=== PATIENT | female | born 1945 | race Caucasian/White ===

== ENCOUNTER 2018-05-21 09:04 | Inpatient (IN) | payer MEDICARE, SELFPAY ==
[2018-05-15 11:27] VITALS: BMI 35.2
[2018-05-21] VITALS (13 sets, daily range): BP systolic 113–173; BP diastolic 62–76; PULSE 60–85; RESP 12–18; TEMP 36.4–36.6; O2SAT 91–98; BMI 34.7; BMI 35.6
--- NOTE | 2018-05-21 09:32 | RAD_ITS ---
STUDY: X-RAY CHEST REASON FOR EXAM: Female, 73 years old. Chest pain/discomfort. Increasing shortness of breath. TECHNIQUE: Single AP portable view of the chest. COMPARISON: None. FINDINGS: Mild elevation of the right hemidiaphragm. Scattered calcified granulomas. No acute abnormality is seen. There is no demonstrated pleural abnormality. Normal size heart. Normal mediastinum and cara. Normal visualized pulmonary arteries. Normal visualized aortic arch and descending thoracic aorta. Normal visualized thoracic spine. Normal visualized ribs, clavicles, and shoulders. There is no demonstrated abnormality of the visualized soft tissue structures of the upper abdomen. RAD/Chest 1 View (Portable) IMPRESSION: Normal x-ray examination of the chest. Electronically Signed: Parish Diaz, at 9:57 EST , Service support ,
--- NOTE | 2018-05-21 09:32 | EKG12_ITS ---
Test Reason : CP Blood Pressure : / mmHG Vent. Rate : 068 BPM Atrial Rate : 068 BPM P-R Int : 204 ms QRS Dur : 098 ms QT Int : 392 ms P-R-T Axes : 042 033 035 degrees QTc Int : 416 ms Normal sinus rhythm Normal ECG Confirmed by INDIRA WEINER MD ([id number]), marketing editor LIZ COOK ([id number]) on 05/23/2018 3:50:41 PM Referred By: IRAIS
[2018-05-21] MEDS: Aspirin 81 MG TAB.CHEW 324 MG PO (09:45)
[2018-05-21 09:57] LABS: Absolute Lymphocyte Count 2.24 X10^3/ul (0.83-4.51); Basophil# 0.06 X10^3/uL; Basophil% 0.6 % (0-1); Eosinophil# 0.17 X10^3/uL; Eosinophils% 1.8 % (0-5); Hematocrit 45.5 % (37-47); Hemoglobin 14.5 g/dl (12.0-15.0); Lymphocyte # 2.24 X10^3/ul (4.0); Lymphocyte % 23.5 % (19-41); Mean Corp Hgb Conc 31.9 g/gl (32-36); Mean Corpuscular Hgb 27.3 pg (27.0-32.0); Mean Corpuscular Volume 85.5 fL (81-99); Mean Platelet Vol. 9.9 fl (6.2-12.0); Monocyte% 10.5 % (0-10); Neutrophil # 6.02 X10^3/uL (2.7-7.7); Neutrophil % 63.2 % (47-70); POSITIVE COUNT NO; POSITIVE DIFFERENTIAL NO; POSITIVE MORPHOLOGY NO; Platelet Count 221 K/mm3 (150-450); RBC Distribution Width CV 13.3 % (11.6-14.6); RBC Distribution Width SD 41.6 fl (35.1-43.9); Red Blood Count 5.32 M/mm3 (4.2-5.4); White Blood Count 9.5 K/mm3 (4.4-11.0)
--- NOTE | 2018-05-21 10:01 | ED.DCSUM_ITS ---
- ER Visit Summary Date of Service: 05/21/18 Chief Complaint: Chest pain History of Present Illness: The patient is a 73 F presenting with chest pain. This has been intermittent for the last week. She states it is a dull midsternal ache. She states with exertion the pain worsens and radiates to her left shoulder. She was seen by her primary care physician today and sent to the ED for further evaluation. She has a history of hypertension. She is not a smoker. Denies PE/DVT risk factors. Physical Examination: Vitals are stable. Patient is afebrile. Alert no acute distress. HEENT exam is unremarkable. Neck is supple. Lungs are clear and equal bilaterally. Heart is regular rate and rhythm. Abdomen is soft nontender nondistended. Extremities are unremarkable. Skin is warm and dry. No focal neurologic deficit. Remainder of exam is unremarkable. Emergency Department Course and Treatment: EKG is sinus rate of 68 with no acute ischemic changes. Patient was given aspirin on arrival. Chest x-ray shows no acute process. CBC, chemistries unremarkable other than glucose 143. Troponin is negative. On reevaluation, patient is resting comfortably. Will discuss with the hospitalist for observation. Disposition: Observation Impression: Chest pain This note was generated with [employer] dictation software. It may contain incorrect words, spelling, and punctuation that were not noted in review of the chart prior to signing ED Disposition - Plan for ED Patient: Referrals: Dilan Valle MD [Primary Care Provider] -
[2018-05-21 10:13] LABS: Anion Gap 11 (5-15); BUN 13 mg/dL (7-18); BUN/Creat Ratio 17.9 RATIO (10-20); Chloride 105 mmol/L (98-107); Creatinine, Serum 0.73 mg/dL (0.55-1.02); EST Glomerular Filtration Rate 84 mL/min (>60); Est Glom Filt Rate - Afr Amer 101 mL/min (>60); Estimated Creatinine Clearance 52.05 ml/min; Glucose 143 mg/dL (74-106); Sodium Level 143 mmol/L (136-145)
--- NOTE | 2018-05-21 11:06 | HP.PCM_ITS ---
History of Present Illness Date of Admission: 05/21/18 Chief Complaint: chest pain The patient is a 73 year old F with past medical history as listed. He was admitted with a complaint of chest pain. Chest pain started last week when she states she walked about a block and started having constricting bandlike chest pain which was worsened by exertion and relieved by rest. She had associated shortness of breath which was also relieved by rest. Patient states pain persisted throughout the weekend associated up with to see her PCP today. PCP asked that she come into the ED for further evaluation. She denied any assisted lightheadedness or dizziness, palpitations or pain radiating to her left arm or jaw. She does admit to having had reflux in the past and states about a week ago she also felt like the reflux had worsened. Review of systems otherwise negative. She has had chest pain like this recently but states about 15 years ago that he had similar chest pain which was more retrosternal and for that she had a stress test done which was negative. States she also had a cardiac cath up in [facility] for this problem and the findings were inconclusive for possible spasm in the circumflex artery versus esophageal spasm. In the ED, vitals were within normal limits. Initial troponin was negative and EKG showed no acute ST changes. She is been admitted to be managed for chest pain to rule out ACS. [] Past Medical History Past Medical History (Chronic Problems): Chronic Problems (Last Reviewed 05/15/18 @ 11:23 by Shireen Castillo) Facet arthropathy, lumbar (Chronic) Medical History: Medical History (Last Reviewed 05/15/18 @ 11:23 by Shireen Castillo) Facet arthropathy, lumbar (Chronic) M47.816 Bilateral headaches R51 Environmental allergies Z91.09 Hyperthyroidism E05.90 Hypertension I10 Allergies bee venom protein (honey bee) Allergy (Verified 05/21/18 09:47) Anaphylaxis Home Medications: Ambulatory Orders Medication Instructions Recorded atenolol 50 mg tablet 100 mg PO DAILY 12/24/17 gabapentin 300 mg capsule 300 mg PO DAILY 12/24/17 levothyroxine 137 mcg tablet 137 mcg PO DAILY 12/24/17 Surgical History: Surgical History (Last Reviewed 05/15/18 @ 11:23 by Shireen Castillo) History of abdominal surgery Z98.890 History of partial thyroidectomy Z98.890 Surgical History: cholecystectomy, - - hysterectomy Psychiatric History: No pertinent psych hx Lives: Spouse/ Significant Other Smoking Status: Never smoker Alcohol: Occasional Drugs: None - *Family History Paternal Family History: Family History (Last Reviewed 05/15/18 @ 11:23 by Shireen Castillo) Other Heart disease Hypertension History Items: Heart Disease, Hypertension Sibling Family History: Family History (Last Reviewed 05/15/18 @ 11:23 by Shireen Castillo) Other Heart disease Hypertension History Items: Hypertension - brother had 2 heart attacks Review of Systems Constitutional: Denies: Chills, Fever, Night Sweats, Malaise, Weakness, Weight Change, Fatigue Eyes: Denies: Blurred vision HEENT: Denies: Head Aches, Sinus Congestion, Sinus Drainage Cardiovascular: Reports: Chest Pain, Chest Pressure, Chest Tightness. Denies: Edema, Heaviness, Light Headedness, Orthopnea, Palpitations, Paroxysmal Noc. Dyspnea, Syncope Respiratory: Reports: Shortness of Breath, Shortness of breath upon exertion. Denies: Cough, Hemoptysis, Pleuritic Pain, Shortness of breath at rest, Sputum production, Wheezing Gastrointestinal: Denies: Abdominal Pain, Nausea, Vomiting Genitourinary: Denies: Dysuria Musculoskeletal: Denies: Joint Pain, Joint Tenderness Skin: Denies: Rash, Wounds Neurological: Denies: Numbness, Tingling, Focal weakness Psychiatric: Denies: Anxiety, Depression, Homicidal Ideations, Suicidal Ideations Hematologic/ Lymphatic: Denies: Easy Bruising, Easy Bleeding VTE Information - Inpt Only VTE Present on Admission: No VTE Pharm Prophylaxis ordered?: Yes - Physical Exam General: Alert, Oriented x3, Cooperative, No apparent distress HEENT: Atraumatic, PERRLA, EOMI, Normocephalic Oral: Moist Mucosa Neck: Supple, No JVD, Negative Carotid Bruits Lungs: Clear to auscultation, Normal air movement, No rhonchi, No wheeze, No rales Cardiovascular: Regular rate, Regular Rhythm, Normal S1, Normal S2, No murmurs Abdomen: Bowel Sounds Present, Soft, Non Tender, Non-Distended, No Hepato- splenomegaly Extremities: No clubbing, No cyanosis, No edema, Capillary Refill Less than 3 Seconds Skin: No rashes, No breakdown Musculoskeletal: No Tenderness to Palpation of Joints or Extremities Lymphatic: No Cervical, Supraclavicular, or Inguinal Adenopathy Neurological: Cranial nerves II-XII grossly intact, Neuro grossly intact, Motor Exam 5/5 strength throughout Psych/Mental Status: Normal Affect, Appropriate, Alert and oriented to time, place, person, mood and affect Vital Signs Temp Pulse Resp BP Pulse Ox 97.6 F L 60 12 127/75 H 98 05/21/18 09:09 05/21/18 10:20 05/21/18 10:20 05/21/18 10:20 05/21/18 10:27 Oxygen Delivery Method Room Air Weight: 228 lb Body Mass Index (BMI) 34.7 Laboratory Tests Past 24 Hrs 05/21/18 05/21/18 09:45 09:45 WBC 9.5 RBC 5.32 Hgb 14.5 Hct 45.5 MCV 85.5 MCH 27.3 MCHC 31.9 L RDW 13.3 RDW Differential 41.6 Plt Count 221 MPV 9.9 Immature Gran % (Auto) 0.400 Neut % (Auto) 63.2 Lymph % (Auto) 23.5 Moore % (Auto) 10.5 H Eos % (Auto) 1.8 Baso % (Auto) 0.6 Absolute Neuts (auto) 6.0 Absolute Lymphs (auto) 2.24 Total Counted Not Reportable Sodium 143 Potassium 4.0 Chloride 105 Carbon Dioxide 27.0 Anion Gap 11 BUN 13 Creatinine 0.73 Estim Creat Clear Calc 52.05 Est GFR (MDRD) Af Amer 101 Est GFR (MDRD) Non-Af 84 BUN/Creatinine Ratio 17.9 Glucose 143 H Calcium 9.0 Troponin I < 0.015 Diagnostic Data Chest X-Ray 05/21/18 09:32 IMPRESSION: Normal x-ray examination of the chest. Electronically Signed: Parish Diaz, at 9:57 EST , Service support , Assessment/Plan All Active Problems (Last Reviewed 05/15/18 @ 11:23 by Shireen Castillo) Segmental and somatic dysfunction of lumbar region (Acute) Segmental and somatic dysfunction of pelvic region (Acute) Segmental and somatic dysfunction of thoracic region (Acute) 73-year-old female admitted with a complaint of chest pain. 1. Chest pain to rule out ACS * Initial troponin negative. EKG showed no acute ST changes * admit to PCU with telemetry * cycle troponins * SL nitroglycerin prn; PO aspirin 81mg daily * if troponins remain negative, for stress test tomorrow * 2. Hypertension: Controlled. On atenolol 3. Hypothyroidism: On Synthroid 137 mg daily. DVT prophylaxis: Lovenox Code Visit OBSV E&M: 96352 Initial observation care L3
--- NOTE | 2018-05-21 11:41 | EKG12_ITS ---
Test Reason : CP ADMISSION Blood Pressure : / mmHG Vent. Rate : 059 BPM Atrial Rate : 059 BPM P-R Int : 216 ms QRS Dur : 098 ms QT Int : 420 ms P-R-T Axes : 035 025 034 degrees QTc Int : 415 ms Sinus bradycardia with 1st degree A-V block Otherwise normal ECG When compared with ECG of 31-DEC-2008 05:28, NV interval has increased Nonspecific T wave abnormality has replaced inverted T waves in Inferior leads Confirmed by HUSAM WATTS, INDIRA ([id number]), assignment desk editor LIZ COOK ([id number]) on 05/23/2018 4:01:29 PM Referred By: NUVIA Confirmed By:INDIRA WEINER MD
[2018-05-22] VITALS (14 sets, daily range): BP systolic 130–170; BP diastolic 62–73; PULSE 63–78; RESP 16–18; TEMP 36.4–36.7; O2SAT 93–97
--- NOTE | 2018-05-22 05:55 | EKG12_ITS ---
Test Reason : AM EKG Blood Pressure : / mmHG Vent. Rate : 070 BPM Atrial Rate : 070 BPM P-R Int : 192 ms QRS Dur : 098 ms QT Int : 408 ms P-R-T Axes : 017 014 019 degrees QTc Int : 440 ms Normal sinus rhythm Normal ECG When compared with ECG of 21-MAY-2018 11:44, MANUAL COMPARISON REQUIRED, DATA IS UNCONFIRMED Confirmed by HUSAM WATTS, INDIRA ([id number]), newspaper editor LIZ COOK ([id number]) on 05/23/2018 4:06:28 PM Referred By: ENRIQUETA Confirmed By:INDIRA WEINER MD
[2018-05-22 05:56] LABS: International Normalized Ratio 1.1; Prothrombin Time (Protime)PT. 13.9 SECONDS (11.7-14.9)
[2018-05-22 05:57] LABS: Partial Thromboplast Time 29.2 Seconds (24.1-36.2)
[2018-05-22] MEDS: Gabapentin 300 MG Capsule PO (05:58)
[2018-05-22] MEDS: Levothyroxine 137 MCG Tablet PO (05:58)
[2018-05-22] MEDS: Aspirin 81 MG TAB.CHEW PO (05:58)
[2018-05-22 06:07] LABS: Absolute Neutrophil Count 5.3 X10^3/uL (2.0-7.7); Basophil# 0.04 X10^3/uL; Basophil% 0.4 % (0-1); Eosinophil# 0.15 X10^3/uL; Eosinophils% 1.7 % (0-5); Hematocrit 43.2 % (37-47); Hemoglobin 13.8 g/dl (12.0-15.0); Mean Corp Hgb Conc 31.9 g/gl (32-36); Mean Corpuscular Hgb 27.7 pg (27.0-32.0); Mean Corpuscular Volume 86.6 fL (81-99); Monocyte% 10.1 % (0-10); Neutrophil # 5.31 X10^3/uL (2.7-7.7); Neutrophil % 59.5 % (47-70); Platelet Count 232 K/mm3 (150-450); RBC Distribution Width CV 13.5 % (11.6-14.6); RBC Distribution Width SD 41.8 fl (35.1-43.9); Red Blood Count 4.99 M/mm3 (4.2-5.4); White Blood Count 8.9 K/mm3 (4.4-11.0)
[2018-05-22 06:09] LABS: POSITIVE COUNT NO; POSITIVE DIFFERENTIAL NO; POSITIVE MORPHOLOGY NO
[2018-05-22 06:13] LABS: Anion Gap 9 (5-15); BUN 15 mg/dL (7-18); BUN/Creat Ratio 18.9 RATIO (10-20); Calcium,Total 8.8 mg/dL (8.5-10.1); Chloride 109 mmol/L (98-107); EST Glomerular Filtration Rate 76 mL/min (>60); Est Glom Filt Rate - Afr Amer 92 mL/min (>60); Estimated Creatinine Clearance 62.72 ml/min; Glucose 145 mg/dL (74-106); Sodium Level 144 mmol/L (136-145)
[2018-05-22] MEDS: Atenolol 100 MG Tablet PO (11:48)
--- NOTE | 2018-05-22 11:56 | STRESSREP_ITS ---
Stress Test Report Exercise myocardial perfusion stress test. 73-year-old lady with a history of chest discomfort. Stress protocol: Resting EKG demonstrates normal sinus rhythm with a rate of 67 bpm normal intervals are noted resting blood pressure 158/92 mmHg. The patient exercised according to regular Chad protocol for total duration of 4 minutes and 11 seconds patient completed 1 minute and 11 seconds to stage II of the Chad protocol. The maximum heart rate attained was 144 bpm which was 99% of maximum predicted heart rate and maximum workload was 6 metabolic equivalents. At rest with no ST or T wave changes noted to suggest ischemia at peak exercise no EKG changes were noted to suggest ischemia. There was approximately 1.[address] depression noted in lead V5 and V6 with no meet the criteria for ischemia. During recovery downsloping ST changes were noted which appeared to be nonspecific. The patient did experience some tightness in her neck and shortness of breath which appeared to dissipate with rest. The resting blood pressure is 158/92 with a peak blood pressure of 238/82. The above is suggestive of severe hypertensive response to exercise. Myocardial perfusion protocol. 14.5 mCi of technetium 99m sestamibi was injected at rest. Patient exercised according to regular Chad protocol for 4 minutes and 11 seconds at peak exercise 44.4 mCi of technetium 99m sestamibi was injected and stress images were obtained stress and rest images are reconstructed compared in short axis vertical and horizontal long axis. Gated images. Perfusion SPECT analysis: Review of the stress images demonstrated normal uptake of tracer noted in all areas of the myocardium. The resting images demonstrated normal uptake of tra cer noted in all areas of the myocardium. No areas of reversibility or notes just ischemia. Gated SPECT analysis: The gated ejection fraction is noted to be 73%. Conclusion: Normal exercise myocardial perfusion stress test at a moderate workload. Preserved ejection fraction. Hypertensive response to exercise.
--- NOTE | 2018-05-22 13:35 | CASEMGMT ---
Patient has a Healthcare POA and Healthcare LW on file at [facility]. Her is her POA. Nerissa HAWKINS MSW
--- NOTE | 2018-05-22 13:35 | PCM.PN.HOSP ---
Subjective: Patient seen and examined. She had no complaints overnight. She denied any fever or chills, and palpitations or dizziness, any abdominal pain, any diarrhea or vomiting. Review of systems otherwise negative. Patient had nuclear chemical stress test today which was negative. However patient states that she had onset of chest pain during the stress test. In light of typical cardiac symptoms namely chest pain of onset with exertion and relieved by rest as well as a remote history of such similar chest pain for which she needed to have a cardiac cath, I think patient will benefit from more workup despite the negative stress test. We will therefore get a cardiology consult to evaluate her. Labs and vitals reviewed. Vitals/I&O's: Vital Signs Temp Pulse Resp BP Pulse Ox 98.0 F 76 17 162/62 H 97 05/22/18 11:45 05/22/18 11:52 05/22/18 11:45 05/22/18 11:45 05/22/18 11:45 Oxygen Delivery Method Room Air Weight: 227 lb 8.273 oz Body Mass Index (BMI) 35.6 Intake and Output for Last 24 Hours 05/20/18 05/21/18 05/22/18 23:59 23:59 23:59 Intake Total 965 / 965 250 / 250 Balance 965 / 965 250 / 250 General: Alert, Oriented x3, Cooperative, No apparent distress HEENT: Atraumatic, PERRLA, EOMI, Normocephalic Oral: Moist Mucosa Neck: Supple, No JVD, Negative Carotid Bruits Lungs: Clear to auscultation, Normal air movement, No rhonchi, No wheeze, No rales Cardiovascular: Regular rate, Regular Rhythm, Normal S1, Normal S2, No murmurs Abdomen: Bowel Sounds Present, Soft, Non Tender, Non-Distended, No Hepato-splenomegaly Extremities: No clubbing, No cyanosis, No edema, Capillary Refill Less than 3 Seconds Skin: No rashes, No breakdown Musculoskeletal: No Tenderness to Palpation of Joints or Extremities Lymphatic: No Cervical, Supraclavicular, or Inguinal Adenopathy Neurological: Cranial nerves II-XII grossly intact, Neuro grossly intact, Motor Exam 5/5 strength throughout Psych/Mental Status: Normal Affect, Appropriate, Alert and oriented to time, place, person, mood and affect Laboratory Results 05/21/18 15:20: Troponin I < 0.015 05/22/18 05:10: WBC 8.9, RBC 4.99, Hgb 13.8, Hct 43.2, MCV 86.6, MCH 27.7, MCHC 31.9 L, RDW 13.5, RDW Differential 41.8, Plt Count 232, MPV 10.0, Immature Gran % (Auto) 0.300, Neut % (Auto) 59.5, Lymph % (Auto) 28.0, [place] % (Auto) 10.1 H, Eos % (Auto) 1.7, Baso % (Auto) 0.4, Absolute Neuts (auto) 5.3, Absolute Lymphs (auto) 2.50, Total Counted Not Reportable 05/22/18 05:10: Sodium 144, Potassium 4.0, Chloride 109 H, Carbon Dioxide 26.0, Anion Gap 9, BUN 15, Creatinine 0.80, Estim Creat Clear Calc 62.72, Est GFR (MDRD) Af Amer 92, Est GFR (MDRD) Non-Af 76, BUN/Creatinine Ratio 18.9, Glucose 145 H, Calcium 8.8 05/22/18 05:10: PT 13.9, INR 1.1, APTT 29.2 Current Medications Aspirin (Aspirin, Baby) 81 mg PO DAILY@0800 [facility] Last Admin: 05/22/18 05:58 Dose: 81 mg Atenolol (Tenormin (Beta Raf)) 100 mg PO DAILY [facility] Last Admin: 05/22/18 11:48 Dose: 100 mg Enoxaparin Sodium (Lovenox) 40 mg SC DAILY@1000 [facility] Last Admin: 05/22/18 10:27 Dose: Not Given [facility]) [facility] Last Admin: 05/22/18 05:58 Dose: 300 mg Levothyroxine Sodium (Synthroid) 137 mcg PO DAILY@0600 [facility] Last Admin: 05/22/18 05:58 Dose: 137 mcg Magnesium Hydroxide (Milk Of Magnesia) 30 ml PO DAILY PRN PRN PRN Reason: Constipation Nitroglycerin (Nitrostat) 0.4 mg SUBLINGUAL Q5M PRN PRN Reason: CARDIAC/CHEST PAIN Sodium Chloride () 5 - 15 ml IV UD PRN PRN Reason: SALINE FLUSH Medical Necessity - Tobacco Use Smoking Status: Never smoker Assessment/Plan All Active Problems (Last Reviewed 05/15/18 @ 11:23 by Shireen Castillo) Segmental and somatic dysfunction of lumbar region (Acute) Segmental and somatic dysfunction of pelvic region (Acute) Segmental and somatic dysfunction of thoracic region (Acute) 73-year-old female admitted with a complaint of chest pain. 1. Chest pain to rule out ACS troponins x 3 were negative EKG showed no acute ST changes stress test was negative; however, patient ahd recurrence of chest pain during stress test. Will therefore consult cardiology for further evaluation. PO aspirin 81 mg daily SL nitroglycerin prn 2. Hypertension: Controlled. On atenolol 3. Hypothyroidism: On Synthroid 137 mcg daily. DVT prophylaxis: Lovenox Code Visit OBSV E&M: 60991 Subsequent observation care L2
--- NOTE | 2018-05-22 13:40 | PN_ITS ---
Subjective: Patient seen and examined. She had no complaints overnight. She denied any fever or chills, and palpitations or dizziness, any abdominal pain, any diarrhea or vomiting. Review of systems otherwise negative. Patient had nuclear chemical stress test today which was negative. However patient states that she had onset of chest pain during the stress test. In light of typical cardiac symptoms namely chest pain of onset with exertion and relieved by rest as well as a remote history of such similar chest pain for which she needed to have a cardiac cath, I think patient will benefit from more workup despite the negative stress test. We will therefore get a cardiology consult to evaluate her. Labs and vitals reviewed. Vitals/I&O's: Vital Signs Temp Pulse Resp BP Pulse Ox 98.0 F 76 17 162/62 H 97 05/22/18 11:45 05/22/18 11:52 05/22/18 11:45 05/22/18 11:45 05/22/18 11:45 Oxygen Delivery Method Room Air Weight: 227 lb 8.273 oz Body Mass Index (BMI) 35.6 Intake and Output for Last 24 Hours 05/20/18 05/21/18 05/22/18 23:59 23:59 23:59 Intake Total 965 / 965 250 / 250 Balance 965 / 965 250 / 250 General: Alert, Oriented x3, Cooperative, No apparent distress HEENT: Atraumatic, PERRLA, EOMI, Normocephalic Oral: Moist Mucosa Neck: Supple, No JVD, Negative Carotid Bruits Lungs: Clear to auscultation, Normal air movement, No rhonchi, No wheeze, No rales Cardiovascular: Regular rate, Regular Rhythm, Normal S1, Normal S2, No murmurs Abdomen: Bowel Sounds Present, Soft, Non Tender, Non-Distended, No Hepato-splenomegaly Extremities: No clubbing, No cyanosis, No edema, Capillary Refill Less than 3 Seconds Skin: No rashes, No breakdown Musculoskeletal: No Tenderness to Palpation of Joints or Extremities Lymphatic: No Cervical, Supraclavicular, or Inguinal Adenopathy Neurological: Cranial nerves II-XII grossly intact, Neuro grossly intact, Motor Exam 5/5 strength throughout Psych/Mental Status: Normal Affect, Appropriate, Alert and oriented to time, place, person, mood and affect Laboratory Results 05/21/18 15:20: Troponin I < 0.015 05/22/18 05:10: WBC 8.9, RBC 4.99, Hgb 13.8, Hct 43.2, MCV 86.6, MCH 27.7, MCHC 31.9 L, RDW 13.5, RDW Differential 41.8, Plt Count 232, MPV 10.0, Immature Gran % (Auto) 0.300, Neut % (Auto) 59.5, Lymph % (Auto) 28.0, Lewis % (Auto) 10.1 H, Eos % (Auto) 1.7, Baso % (Auto) 0.4, Absolute Neuts (auto) 5.3, Absolute Lymphs (auto) 2.50, Total Counted Not Reportable 05/22/18 05:10: Sodium 144, Potassium 4.0, Chloride 109 H, Carbon Dioxide 26.0, Anion Gap 9, BUN 15, Creatinine 0.80, Estim Creat Clear Calc 62.72, Est GFR (MDRD) Af Amer 92, Est GFR (MDRD) Non-Af 76, BUN/Creatinine Ratio 18.9, Glucose 145 H, Calcium 8.8 05/22/18 05:10: PT 13.9, INR 1.1, APTT 29.2 Current Medications Aspirin (Aspirin, Baby) 81 mg PO DAILY@0800 [facility] Last Admin: 05/22/18 05:58 Dose: 81 mg Atenolol (Tenormin (Beta Raf)) 100 mg PO DAILY [facility] Last Admin: 05/22/18 11:48 Dose: 100 mg Enoxaparin Sodium (Lovenox) 40 mg SC DAILY@1000 [facility] Last Admin: 05/22/18 10:27 Dose: Not Given [facility]) [facility] Last Admin: 05/22/18 05:58 Dose: 300 mg Levothyroxine Sodium (Synthroid) 137 mcg PO DAILY@0600 [facility] Last Admin: 05/22/18 05:58 Dose: 137 mcg Magnesium Hydroxide (Milk Of Magnesia) 30 ml PO DAILY PRN PRN PRN Reason: Constipation Nitroglycerin (Nitrostat) 0.4 mg SUBLINGUAL Q5M PRN PRN Reason: CARDIAC/CHEST PAIN Sodium Chloride () 5 - 15 ml IV UD PRN PRN Reason: SALINE FLUSH Medical Necessity - Tobacco Use Smoking Status: Never smoker Assessment/Plan All Active Problems (Last Reviewed 05/15/18 @ 11:23 by Shireen Castillo) Segmental and somatic dysfunction of lumbar region (Acute) Segmental and somatic dysfunction of pelvic region (Acute) Segmental and somatic dysfunction of thoracic region (Acute) 73-year-old female admitted with a complaint of chest pain. 1. Chest pain to rule out ACS * troponins x 3 were negative * EKG showed no acute ST changes * stress test was negative; however, patient ahd recurrence of chest pain during stress test. Will therefore consult cardiology for further evaluation. * PO aspirin 81 mg daily * SL nitroglycerin prn * 2. Hypertension: Controlled. On atenolol 3. Hypothyroidism: On Synthroid 137 mcg daily. DVT prophylaxis: Lovenox Code Visit OBSV E&M: 91121 Subsequent observation care L2
--- NOTE | 2018-05-22 17:08 | PCM.CONS.C ---
Reason for Consult Date of Consultation: 05/22/18 Reason for Consultation: Chest pain History of Present Illness: The patient is a 73 year old F with no previous cardiac history significant for coronary artery disease who presented to the emergency room on account of chest heaviness and shortness of breath. She says this started approximately a week ago when they were walking to an event at the [email or web address] and she noted significant shortness of breath and reduction in exertional capacity. Yesterday she had a similar episode and presented to see her primary physician who performed an EKG which he thought was abnormal. She wanted to see a metal fabricator helper and she was referred to the emergency room. She was admitted to the hospital to the telemetry care unit cardiac enzymes were noted to be normal and she underwent stress testing today which did not demonstrate any evidence of ischemia. There were questionable EKG changes. On further discussion with the hospitalist she decided she wanted to evaluate this further. She is currently pain-free. She underwent a cardiac catheterization almost 20 years ago at the [facility] and was thought that she may have had circumflex artery spasm or esophageal spasm. [] Past Medical History Allergies/Adverse Reactions: Allergies bee venom protein (honey bee) Allergy (Verified 05/21/18 09:47) Anaphylaxis Home Medications: Ambulatory Orders Medication Instructions Recorded atenolol 50 mg tablet 100 mg PO DAILY 12/24/17 gabapentin 300 mg capsule 300 mg PO DAILY 12/24/17 levothyroxine 137 mcg tablet 137 mcg PO DAILY 12/24/17 Aspirin [Aspirin, Baby] 81 mg PO DAILY@0800 #30 tab.chew 05/22/18 Nitroglycerin [Nitrostat] 0.4 mg SL PRN PRN #30 tab.subl 05/22/18 Past Medical History (Chronic Problems): Chronic Problems (Last Reviewed 05/15/18 @ 11:23 by Shireen Castillo) Facet arthropathy, lumbar (Chronic) Surgical History: cholecystectomy, - - hysterectomy Psychiatric History: No pertinent psych hx - *Family History Paternal Family History: Family History (Last Reviewed 05/15/18 @ 11:23 by Shireen Castillo) Other Heart disease Hypertension History Items: Heart Disease, Hypertension Sibling Family History: Family History (Last Reviewed 05/15/18 @ 11:23 by Shireen Castillo) Other Heart disease Hypertension History Items: Hypertension - brother had 2 heart attacks Lives: Spouse/ Significant Other Smoking Status: Never smoker Alcohol: Occasional Drugs: None Review of Systems - Review of Systems General: Denies: Fever, Night Sweats, Fatigue HEENT: Denies: Vision Change Cardiovascular: Reports: Chest Discomfort, Chest Discomfort with Exertion, Shortness of Breath, Shortness of Breath with Exertion. Denies: Orthopnea, PND, Peripheral Edema, Palpitations, Lightheadedness, Dizziness, Near Syncope, Syncope Respiratory: Denies: Cough, Sputum Production, Hemoptysis Gastrointestinal: Denies: Hematemesis, Hematochezia, Melena Genitourinary: Denies: Dysuria, Hematuria Skin: Denies: Rash Neurological: Reports: Dizziness Psychiatric: Reports: Anxiety Endocrine: Denies: Unexplained Weight Loss Hematologic/ Lymphatic: Denies: Anemia Subjectve: Pleasant lady in no apparent distress Objective: Vital Signs Temp Pulse Resp BP Pulse Ox 98.0 F 71 18 130/62 H 95 05/22/18 15:10 05/22/18 15:22 05/22/18 15:10 05/22/18 15:10 05/22/18 15:10 Oxygen Delivery Method Room Air Weight: 227 lb 8.273 oz Body Mass Index (BMI) 35.6 Intake and Output for Last 24 Hours 05/20/18 05/21/18 05/22/18 23:59 23:59 23:59 Intake Total 965 / 965 250 / 250 Balance 965 / 965 250 / 250 General: Awake, Alert, Oriented x 3 HEENT: PERRL, EOMI, Sclera Non Icteric Neck: Supple, Good ROM, No Lymph Node Enlargement Lungs: Clear to auscultation Cardiovascular: Regular Rhythm, Normal S1, Normal S2, No Murmurs, No Rubs, No Gallops Vascular: No Carotid Bruits, Normal Femoral Pulses, Normal Radial Pulses, Normal Dorsalis Pedal Pulse, Normal Posterior Tibial Pulses Abdomen: Bowel Sounds Present, Soft, Non Tender, No HSM, No Organomegaly Extremities: No Cyanosis, No Clubbing, No edema Musculoskeletal: No Erythema Skin: No Rashes Lymphatic: No Lymph Node Enlargement Neurological: No Focal Motor or Sensory Deficit Psych/Mental Status: Appropriate 05/22/18 05:10: WBC 8.9, RBC 4.99, Hgb 13.8, Hct 43.2, MCV 86.6, MCH 27.7, MCHC 31.9 L, RDW 13.5, RDW Differential 41.8, Plt Count 232, MPV 10.0, Immature Gran % (Auto) 0.300, Neut % (Auto) 59.5, Lymph % (Auto) 28.0, [place] % (Auto) 10.1 H, Eos % (Auto) 1.7, Baso % (Auto) 0.4, Absolute Neuts (auto) 5.3, Total Counted Not Reportable 05/22/18 05:10: Sodium 144, Potassium 4.0, Chloride 109 H, Carbon Dioxide 26.0, Anion Gap 9, BUN 15, Creatinine 0.80, Est GFR (MDRD) Af Amer 92, Est GFR (MDRD) Non-Af 76, BUN/Creatinine Ratio 18.9, Glucose 145 H, Calcium 8.8 05/22/18 05:10: PT 13.9, INR 1.1, APTT 29.2 Rhythm: EKG: ECHO: Stress Test: Cardiac Cath: PCI: CT Surgery: Holter monitor: EPS: PPM: CXR: Chest CT Scan: Assessment/Plan 1. Chest pain Patient presents with chest discomfort and shortness of breath with exertion and is noted to have a stress test with EKG abnormalities by nuclear imaging demonstrating no evidence of ischemia. At this time it is felt that due to the worsening of his symptoms over the last week that we should proceed with a left heart catheterization. There is benefits and alternatives have been explained to her she understands and agrees to proceed. Continue aspirin Continue beta-sina Will start clopidogrel 2. Hypertension Blood pressure appears to be under good control If a cardiac catheterization is normal I would suggest discontinuing the beta-sina and placing him on an ABEL inhibitor or calcium channel sina instead Thank you for allowing me to participate in the care of your patient. Please don't hesitate to call if any issues arise
--- NOTE | 2018-05-22 17:14 | CON.PCM_ITS ---
Reason for Consult Date of Consultation: 05/22/18 Reason for Consultation: Chest pain History of Present Illness: The patient is a 73 year old F with no previous cardiac history significant for coronary artery disease who presented to the emergency room on account of chest heaviness and shortness of breath. She says this started approximately a week ago when they were walking to an event at the [employer] and she noted significant shortness of breath and reduction in exertional capacity. Yesterday she had a similar episode and presented to see her primary physician who performed an EKG which he thought was abnormal. She wanted to see a director of instructional technology and she was referred to the emergency room. She was admitted to the hospital to the telemetry care unit cardiac enzymes were noted to be normal and she underwent stress testing today which did not demonstrate any evidence of ischemia. There were questionable EKG changes. On further discussion with the hospitalist she decided she wanted to evaluate this further. She is currently pain-free. She underwent a cardiac catheterization almost 20 years ago at the [facility] and was thought that she may have had circumflex artery spasm or esophageal spasm. [] Past Medical History Allergies/Adverse Reactions: Allergies bee venom protein (honey bee) Allergy (Verified 05/21/18 09:47) Anaphylaxis Home Medications: Ambulatory Orders Medication Instructions Recorded atenolol 50 mg tablet 100 mg PO DAILY 12/24/17 gabapentin 300 mg capsule 300 mg PO DAILY 12/24/17 levothyroxine 137 mcg tablet 137 mcg PO DAILY 12/24/17 Aspirin [Aspirin, Baby] 81 mg PO DAILY@0800 #30 tab.chew 05/22/18 Nitroglycerin [Nitrostat] 0.4 mg SL PRN PRN #30 tab.subl 05/22/18 Past Medical History (Chronic Problems): Chronic Problems (Last Reviewed 05/15/18 @ 11:23 by Shireen Castillo) Facet arthropathy, lumbar (Chronic) Surgical History: cholecystectomy, - - hysterectomy Psychiatric History: No pertinent psych hx - *Family History Paternal Family History: Family History (Last Reviewed 05/15/18 @ 11:23 by Shireen Castillo) Other Heart disease Hypertension History Items: Heart Disease, Hypertension Sibling Family History: Family History (Last Reviewed 05/15/18 @ 11:23 by Shireen Castillo) Other Heart disease Hypertension History Items: Hypertension - brother had 2 heart attacks Lives: Spouse/ Significant Other Smoking Status: Never smoker Alcohol: Occasional Drugs: None Review of Systems - Review of Systems General: Denies: Fever, Night Sweats, Fatigue HEENT: Denies: Vision Change Cardiovascular: Reports: Chest Discomfort, Chest Discomfort with Exertion, Shortness of Breath, Shortness of Breath with Exertion. Denies: Orthopnea, PND, Peripheral Edema, Palpitations, Lightheadedness, Dizziness, Near Syncope, Syncope Respiratory: Denies: Cough, Sputum Production, Hemoptysis Gastrointestinal: Denies: Hematemesis, Hematochezia, Melena Genitourinary: Denies: Dysuria, Hematuria Skin: Denies: Rash Neurological: Reports: Dizziness Psychiatric: Reports: Anxiety Endocrine: Denies: Unexplained Weight Loss Hematologic/ Lymphatic: Denies: Anemia Subjectve: Pleasant lady in no apparent distress Objective: Vital Signs Temp Pulse Resp BP Pulse Ox 98.0 F 71 18 130/62 H 95 05/22/18 15:10 05/22/18 15:22 05/22/18 15:10 05/22/18 15:10 05/22/18 15:10 Oxygen Delivery Method Room Air Weight: 227 lb 8.273 oz Body Mass Index (BMI) 35.6 Intake and Output for Last 24 Hours 05/20/18 05/21/18 05/22/18 23:59 23:59 23:59 Intake Total 965 / 965 250 / 250 Balance 965 / 965 250 / 250 General: Awake, Alert, Oriented x 3 HEENT: PERRL, EOMI, Sclera Non Icteric Neck: Supple, Good ROM, No Lymph Node Enlargement Lungs: Clear to auscultation Cardiovascular: Regular Rhythm, Normal S1, Normal S2, No Murmurs, No Rubs, No Gallops Vascular: No Carotid Bruits, Normal Femoral Pulses, Normal Radial Pulses, Normal Dorsalis Pedal Pulse, Normal Posterior Tibial Pulses Abdomen: Bowel Sounds Present, Soft, Non Tender, No HSM, No Organomegaly Extremities: No Cyanosis, No Clubbing, No edema Musculoskeletal: No Erythema Skin: No Rashes Lymphatic: No Lymph Node Enlargement Neurological: No Focal Motor or Sensory Deficit Psych/Mental Status: Appropriate 05/22/18 05:10: WBC 8.9, RBC 4.99, Hgb 13.8, Hct 43.2, MCV 86.6, MCH 27.7, MCHC 31.9 L, RDW 13.5, RDW Differential 41.8, Plt Count 232, MPV 10.0, Immature Gran % (Auto) 0.300, Neut % (Auto) 59.5, Lymph % (Auto) 28.0, [place] % (Auto) 10.1 H, Eos % (Auto) 1.7, Baso % (Auto) 0.4, Absolute Neuts (auto) 5.3, Total Counted Not Reportable 05/22/18 05:10: Sodium 144, Potassium 4.0, Chloride 109 H, Carbon Dioxide 26.0, Anion Gap 9, BUN 15, Creatinine 0.80, Est GFR (MDRD) Af Amer 92, Est GFR (MDRD) Non-Af 76, BUN/Creatinine Ratio 18.9, Glucose 145 H, Calcium 8.8 05/22/18 05:10: PT 13.9, INR 1.1, APTT 29.2 Rhythm: EKG: ECHO: Stress Test: Cardiac Cath: PCI: CT Surgery: Holter monitor: EPS: PPM: CXR: Chest CT Scan: Assessment/Plan 1. Chest pain * Patient presents with chest discomfort and shortness of breath with exertion and is noted to have a stress test with EKG abnormalities by nuclear imaging demonstrating no evidence of ischemia. At this time it is felt that due to the worsening of his symptoms over the last week that we should proceed with a left heart catheterization. There is benefits and alternatives have been explained to her she understands and agrees to proceed. * Continue aspirin * Continue beta-sina * Will start clopidogrel * 2. Hypertension * Blood pressure appears to be under good control * If a cardiac catheterization is normal I would suggest discontinuing the beta- sina and placing him on an ABEL inhibitor or calcium channel sina instead * * Thank you for allowing me to participate in the care of your patient. Please don't hesitate to call if any issues arise
[2018-05-22] MEDS: Clopidogrel Bisulfate 300 MG Tablet PO (18:43)
[2018-05-22 23:04] LABS: Bacteria 0 SEEN /hpf (None Seen); Mucous, Urine 0 SEEN /hpf (<or=2+); Red Blood Cells-Urine 0 SEEN /hpf (0-5)
[2018-05-22 23:27] LABS: Color, Urine Yellow (Yellow); Glucose, Dipstick Normal (Normal); Ketone-Dipstick Negative (Negative); Leukocyte Esterase-Dipstick 25 /ul (Negative); Nitrite-Dipstick Negative (Negative); Occult Blood-Urine Negative /ul (Negative); Protein-Dipstick Negative (Negative); Urine Bilirubin Dipstick Negative (Negative); Urine Clarity Clear (Clear); Urine Urobilinogen Normal (Normal)
[2018-05-22 23:33] LABS: Squamous Epithelial Cells - UA 0-5 SEEN /hpf (5-10); White Blood Cells 0-5 SEEN /hpf (0-5)
[2018-05-23] VITALS (52 sets, daily range): BP systolic 111–183; BP diastolic 44–99; PULSE 70–92; RESP 10–22; TEMP 36.4–37.1; O2SAT 93–99; BMI 35.5; BMI 35.6
[2018-05-23] MEDS: 0.9% NaCl Peripheral Flush Adult/Peds IV (04:10)
[2018-05-23] MEDS: hydrALAZINE 20 MG/ML Vial 10 MG IV (04:10)
[2018-05-23 05:28] LABS: Absolute Lymphocyte Count 2.53 X10^3/ul (0.83-4.51); Absolute Neutrophil Count 5.5 X10^3/uL (2.0-7.7); Basophil# 0.05 X10^3/uL; Basophil% 0.5 % (0-1); Eosinophil# 0.16 X10^3/uL; Eosinophils% 1.7 % (0-5); Hematocrit 42.4 % (37-47); Hemoglobin 13.6 g/dl (12.0-15.0); Lymphocyte # 2.53 X10^3/ul (4.0); Lymphocyte % 27.2 % (19-41); Mean Corp Hgb Conc 32.1 g/gl (32-36); Mean Corpuscular Hgb 27.6 pg (27.0-32.0); Mean Corpuscular Volume 86.2 fL (81-99); Mean Platelet Vol. 9.9 fl (6.2-12.0); Monocyte# 0.98 X10^3/uL; Monocyte% 10.5 % (0-10); Neutrophil # 5.54 X10^3/uL (2.7-7.7); Neutrophil % 59.8 % (47-70); Platelet Count 225 K/mm3 (150-450); RBC Distribution Width CV 13.5 % (11.6-14.6); RBC Distribution Width SD 41.8 fl (35.1-43.9); Red Blood Count 4.92 M/mm3 (4.2-5.4); White Blood Count 9.3 K/mm3 (4.4-11.0)
[2018-05-23 05:33] LABS: International Normalized Ratio 1.1; Prothrombin Time (Protime)PT. 13.7 SECONDS (11.7-14.9)
[2018-05-23 05:34] LABS: Partial Thromboplast Time 27.7 Seconds (24.1-36.2)
[2018-05-23 05:36] LABS: POSITIVE COUNT NO; POSITIVE DIFFERENTIAL NO; POSITIVE MORPHOLOGY NO
[2018-05-23 05:41] LABS: Anion Gap 9 (5-15); BUN 15 mg/dL (7-18); BUN/Creat Ratio 18.3 RATIO (10-20); Calcium,Total 8.7 mg/dL (8.5-10.1); Chloride 109 mmol/L (98-107); Creatinine, Serum 0.82 mg/dL (0.55-1.02); EST Glomerular Filtration Rate 73 mL/min (>60); Est Glom Filt Rate - Afr Amer 88 mL/min (>60); Estimated Creatinine Clearance 61.19 ml/min; Glucose 146 mg/dL (74-106); Potassium 3.7 mmol/L (3.5-5.1); Sodium Level 143 mmol/L (136-145)
--- NOTE | 2018-05-23 05:55 | EKG12_ITS ---
Test Reason : AM EKG Blood Pressure : / mmHG Vent. Rate : 074 BPM Atrial Rate : 074 BPM P-R Int : 198 ms QRS Dur : 102 ms QT Int : 398 ms P-R-T Axes : 034 021 012 degrees QTc Int : 441 ms Normal sinus rhythm Normal ECG When compared with ECG of 22-MAY-2018 05:13, MANUAL COMPARISON REQUIRED, DATA IS UNCONFIRMED Confirmed by HUSAM WATTS, INDIRA ([id number]), scientific publications editor JAKI MARSHALL ([id number]) on 05/27/2018 2:44:04 PM Referred By: DR CLIFTON Confirmed By:INDIRA WEINER MD
[2018-05-23] MEDS: Levothyroxine 137 MCG Tablet PO (06:17)
[2018-05-23] MEDS: Atenolol 100 MG Tablet PO (06:18)
[2018-05-23] MEDS: Clopidogrel Bisulfate 75 MG Tablet PO (06:18)
[2018-05-23] MEDS: Aspirin 81 MG TAB.CHEW PO (06:18)
[2018-05-23] MEDS: 0.9% Normal Saline 1,000 ML 15 ML IV (06:18)
--- NOTE | 2018-05-23 07:03 | NURSING ---
called report to tin can laborer. spoke with DESTINEE Guajardo. patient okay to be sent down.
--- NOTE | 2018-05-23 07:57 | PCM.PN.CARD ---
Subjectve: Patient seen and evaluated. Objective: Vital Signs Temp Pulse Resp BP Pulse Ox 97.5 F L 76 18 174/69 H 97 05/23/18 06:16 05/23/18 06:16 05/23/18 06:16 05/23/18 06:16 05/23/18 06:16 Oxygen Delivery Method Room Air Weight: 227 lb 8.273 oz Body Mass Index (BMI) 35.6 Intake and Output for Last 24 Hours 05/21/18 05/22/18 05/23/18 23:59 23:59 23:59 Intake Total 965 / 965 1250 / 1250 Balance 965 / 965 1250 / 1250 General: Awake, Alert, Oriented x 3 HEENT: PERRL, EOMI, Sclera Non Icteric Neck: Supple, Good ROM, No Lymph Node Enlargement Lungs: Clear to auscultation Cardiovascular: Regular Rhythm, Normal S1, Normal S2, No Murmurs, No Rubs, No Gallops Vascular: No Carotid Bruits, Normal Femoral Pulses, Normal Radial Pulses, Normal Dorsalis Pedal Pulse, Normal Posterior Tibial Pulses Abdomen: Bowel Sounds Present, Soft, Non Tender, No HSM, No Organomegaly Extremities: No Cyanosis, No Clubbing, No edema Neurological: No Focal Motor or Sensory Deficit Psych/Mental Status: Appropriate 05/22/18 22:54: Urine Color Yellow, Urine Clarity Clear, Urine pH 5.0, Ur Specific [place] 1.020, Urine Protein Negative, Urine Glucose (UA) Normal, Urine Ketones Negative, Urine Occult Blood Negative, Urine Nitrite Negative, Urine Bilirubin Negative, Urine Urobilinogen Normal, Ur Leukocyte Esterase 25 H, Urine RBC 0 SEEN, Urine WBC 0-5 SEEN 05/23/18 05:15: WBC 9.3, RBC 4.92, Hgb 13.6, Hct 42.4, MCV 86.2, MCH 27.6, MCHC 32.1, RDW 13.5, RDW Differential 41.8, Plt Count 225, MPV 9.9, Immature Gran % (Auto) 0.300, Neut % (Auto) 59.8, Lymph % (Auto) 27.2, [place] % (Auto) 10.5 H, Eos % (Auto) 1.7, Baso % (Auto) 0.5, Absolute Neuts (auto) 5.5, Total Counted Not Reportable 05/23/18 05:15: Sodium 143, Potassium 3.7, Chloride 109 H, Carbon Dioxide 25.0, Anion Gap 9, BUN 15, Creatinine 0.82, Est GFR (MDRD) Af Amer 88, Est GFR (MDRD) Non-Af 73, BUN/Creatinine Ratio 18.3, Glucose 146 H, Calcium 8.7 05/23/18 05:15: PT 13.7, INR 1.1, APTT 27.7 Rhythm: EKG: ECHO: Stress Test: Cardiac Cath: PCI: CT Surgery: Holter monitor: EPS: PPM: CXR: Chest CT Scan: Medical Necessity - Tobacco Use Smoking Status: Never smoker Assessment/Plan 1. Chest pain Patient presents with chest discomfort and shortness of breath with exertion and is noted to have a stress test with EKG abnormalities by nuclear imaging demonstrating no evidence of ischemia. At this time it is felt that due to the worsening of his symptoms over the last week that we should proceed with a left heart catheterization. Cardiac catheterization demonstrated the following: Normal left main coronary artery. Left anterior descending artery with moderate disease noted in the proximal segment, severe disease noted in the mid and distal segments. First diagonal vessel with moderately severe disease. Left circumflex artery with mild diffuse stenosis. Dominant large right coronary artery with high-grade maximal stenosis. Preserved ejection fraction. Based on the above angiographic findings the patient would undergo staged angioplasty 2. Hypertension Blood pressure appears to be under suboptimal control Would recommend aggressive blood pressure control Thank you for allowing me to participate in the care of your patient. Please don't hesitate to call if any issues arise
--- NOTE | 2018-05-23 08:01 | PN.CARD_ITS ---
Subjectve: Patient seen and evaluated. Objective: Vital Signs Temp Pulse Resp BP Pulse Ox 97.5 F L 76 18 174/69 H 97 05/23/18 06:16 05/23/18 06:16 05/23/18 06:16 05/23/18 06:16 05/23/18 06:16 Oxygen Delivery Method Room Air Weight: 227 lb 8.273 oz Body Mass Index (BMI) 35.6 Intake and Output for Last 24 Hours 05/21/18 05/22/18 05/23/18 23:59 23:59 23:59 Intake Total 965 / 965 1250 / 1250 Balance 965 / 965 1250 / 1250 General: Awake, Alert, Oriented x 3 HEENT: PERRL, EOMI, Sclera Non Icteric Neck: Supple, Good ROM, No Lymph Node Enlargement Lungs: Clear to auscultation Cardiovascular: Regular Rhythm, Normal S1, Normal S2, No Murmurs, No Rubs, No Gallops Vascular: No Carotid Bruits, Normal Femoral Pulses, Normal Radial Pulses, Normal Dorsalis Pedal Pulse, Normal Posterior Tibial Pulses Abdomen: Bowel Sounds Present, Soft, Non Tender, No HSM, No Organomegaly Extremities: No Cyanosis, No Clubbing, No edema Neurological: No Focal Motor or Sensory Deficit Psych/Mental Status: Appropriate 05/22/18 22:54: Urine Color Yellow, Urine Clarity Clear, Urine pH 5.0, Ur Specific [place] 1.020, Urine Protein Negative, Urine Glucose (UA) Normal, Urine Ketones Negative, Urine Occult Blood Negative, Urine Nitrite Negative, Urine Bilirubin Negative, Urine Urobilinogen Normal, Ur Leukocyte Esterase 25 H, Urine RBC 0 SEEN, Urine WBC 0-5 SEEN 05/23/18 05:15: WBC 9.3, RBC 4.92, Hgb 13.6, Hct 42.4, MCV 86.2, MCH 27.6, MCHC 32.1, RDW 13.5, RDW Differential 41.8, Plt Count 225, MPV 9.9, Immature Gran % (Auto) 0.300, Neut % (Auto) 59.8, Lymph % (Auto) 27.2, [place] % (Auto) 10.5 H, Eos % (Auto) 1.7, Baso % (Auto) 0.5, Absolute Neuts (auto) 5.5, Total Counted Not Reportable 05/23/18 05:15: Sodium 143, Potassium 3.7, Chloride 109 H, Carbon Dioxide 25.0, Anion Gap 9, BUN 15, Creatinine 0.82, Est GFR (MDRD) Af Amer 88, Est GFR (MDRD) Non-Af 73, BUN/Creatinine Ratio 18.3, Glucose 146 H, Calcium 8.7 05/23/18 05:15: PT 13.7, INR 1.1, APTT 27.7 Rhythm: EKG: ECHO: Stress Test: Cardiac Cath: PCI: CT Surgery: Holter monitor: EPS: PPM: CXR: Chest CT Scan: Medical Necessity - Tobacco Use Smoking Status: Never smoker Assessment/Plan 1. Chest pain * Patient presents with chest discomfort and shortness of breath with exertion and is noted to have a stress test with EKG abnormalities by nuclear imaging demonstrating no evidence of ischemia. At this time it is felt that due to the worsening of his symptoms over the last week that we should proceed with a left heart catheterization. * Cardiac catheterization demonstrated the following: Normal left main coronary artery. Left anterior descending artery with moderate disease noted in the proximal segment, severe disease noted in the mid and distal segments. First diagonal vessel with moderately severe disease. Left circumflex artery with mild diffuse stenosis. Dominant large right coronary artery with high-grade maximal stenosis. Preserved ejection fraction. Based on the above angiographic findings the patient would undergo staged angioplasty * 2. Hypertension * Blood pressure appears to be under suboptimal control * Would recommend aggressive blood pressure control * * Thank you for allowing me to participate in the care of your patient. Please don't hesitate to call if any issues arise
--- NOTE | 2018-05-23 08:16 | CL.D_ITS ---
Patient Name: MATEO BEDOYA V Study Date: 05/23/2018 Performing: Luciano Man MD Ht: 66.92 inches 170 cm : 1945 Wt: 227.08 lbs 103 kg Age: 73 Gender: female BSA: 2.13 PROCEDURE(S) PERFORMED [id number]/[id number]/LV [id number] W OR WO PTCA, SINGLE CORONARY ARTERY CLINICAL PROFILE AND INDICATIONS Indications: Suspected CAD Heart Failure: None Stress/Imaging Stress Test w/SPECT MPI: Yes Result: IndeterminantStress Test with SPECT MPI: Inde terminant CAD Presentations: Unstable angina. CONCLUSIONS Severe two-vessel disease involving the proximal mid and distal left anterior descending artery, and a large dominant right coronary artery with proximal severe stenosis. RECOMMENDATIONS Referred for immediate PCI DESCRIPTION OF PROCEDURE The patient arrived to the procedure lab. The risks and benefits of the procedure as well as a full d escription of our services here and current unavailability of surgical backup were fully explained to the patient and/or their significant other prior to the catheterization. The Timeout was completed, verifying the correct patient and procedure. The patient's procedural site was prepped and draped in the usual fashion. Local anesthetic was given subcutaneously to right groin region with Lidocaine 2%. Using a modified Seldinger technique, arterial access was obtained via the right femoral artery, a 5 Fr sheath was inserted. Left Coronary Artery selective angiography was performed in multiple views u sing a 5 Fr. JL4 catheter. Right Coronary Artery selective angiography was then performed in multiple views using a 5 Fr. 3DRC (Sixto) catheter. Left Ventriculography was performed in VEGA projection using a 5 Fr. Pigtail catheter. LV to AO pullback pressures were then recorded. CORONARY ANGIOGRAPHY DOMINANCE: Right Dominant LEFT HEART ASSESSMENT Left Ventricular Ejection Fraction: by LV Gram 55 % Normal LV wall motion Normal Left Ventricular systolic function LEFT MAIN: Angiographically normal LEFT ANTERIOR DECENDING ARTERY: PROX LAD: Moderate luminal irregularities up to 50% MID LAD: 80 % Stenosis DISTAL LAD: 80 % Stenosis DIAGONAL 1: Proximal - 75 % Stenosis CIRCUMFLEX ARTERY: Mild luminal irregularities less than 30% RIGHT CORONARY ARTERY: PROX RCA: 80 % Stenosis COMPLICATIONS PROCEDURE MEDICATIONS Versed 1 mg IV Versed 1 mg IV Fentanyl 50 mcg IV Oxygen: 2 L/min via nasal cannula Heparin 6000 unit(s) IV 05/23/2018 08:00:45 Nitro 200 mcg IC 05/23/2018 08:04:49 Nitro 200 mcg IC 05/23/2018 08:04:49 SUMMARY OF HEMODYNAMIC DATA Time AIR REST ECG 07:22:32 AO 178/83 (122) SA 07:36:40 LV 182/13, 23 07:45:07 LV 176/14, 21 07:45:13 LV 185/0, 29 07:46:05 LV 189/0, 29 07:46:12 LVp 188/0, 26 07:46:19 AOp 188/76 (123) 07:46:24 Signed By Luciano Man MD On 05/23/2018 8:15:38 AM Luciano Man MD
--- NOTE | 2018-05-23 08:21 | NURSING ---
Report called to receiving DESTINEE Hawkins in ICU. Renae FELIPE
--- NOTE | 2018-05-23 08:45 | PN_ITS ---
Vitals/I&O's: Vital Signs Temp Pulse Resp BP Pulse Ox 97.5 F L 76 18 174/69 H 97 05/23/18 06:16 05/23/18 06:16 05/23/18 06:16 05/23/18 06:16 05/23/18 06:16 Oxygen Delivery Method Room Air Weight: 103.2 kg Body Mass Index (BMI) 35.6 Intake and Output for Last 24 Hours 05/21/18 05/22/18 05/23/18 23:59 23:59 23:59 Intake Total 965 / 965 1250 / 1250 Balance 965 / 965 1250 / 1250 Laboratory Results 05/22/18 22:54: Urine Color Yellow, Urine Clarity Clear, Urine pH 5.0, Ur Specific [place] 1.020, Urine Protein Negative, Urine Glucose (UA) Normal, Urine Ketones Negative, Urine Occult Blood Negative, Urine Nitrite Negative, Urine Bilirubin Negative, Urine Urobilinogen Normal, Ur Leukocyte Esterase 25 H, Urine RBC 0 SEEN, Urine WBC 0-5 SEEN, Ur Squamous Epith Cells 0-5 SEEN, Urine Bacteria 0 SEEN, Urine Mucus 0 SEEN 05/23/18 05:15: WBC 9.3, RBC 4.92, Hgb 13.6, Hct 42.4, MCV 86.2, MCH 27.6, MCHC 32.1, RDW 13.5, RDW Differential 41.8, Plt Count 225, MPV 9.9, Immature Gran % (Auto) 0.300, Neut % (Auto) 59.8, Lymph % (Auto) 27.2, [place] % (Auto) 10.5 H, Eos % (Auto) 1.7, Baso % (Auto) 0.5, Absolute Neuts (auto) 5.5, Absolute Lymphs (auto) 2.53, Total Counted Not Reportable 05/23/18 05:15: Sodium 143, Potassium 3.7, Chloride 109 H, Carbon Dioxide 25.0, Anion Gap 9, BUN 15, Creatinine 0.82, Estim Creat Clear Calc 61.19, Est GFR (MDRD) Af Amer 88, Est GFR (MDRD) Non-Af 73, BUN/Creatinine Ratio 18.3, Glucose 146 H, Calcium 8.7 05/23/18 05:15: PT 13.7, INR 1.1, APTT 27.7 Current Medications Aspirin (Aspirin, Baby) 81 mg PO DAILY@0800 [facility] Last Admin: 05/23/18 06:18 Dose: 81 mg Atenolol (Tenormin (Beta Raf)) 100 mg PO DAILY [facility] Last Admin: 05/23/18 06:18 Dose: 100 mg Clopidogrel Bisulfate (Plavix) 75 mg PO DAILY [facility] Last Admin: 05/23/18 06:18 Dose: 75 mg Enoxaparin Sodium (Lovenox) 40 mg SC DAILY@1000 [facility] Last Admin: 05/22/18 10:27 Dose: Not Given [facility]) [facility] Admin: 05/22/18 05:58 Dose: 300 mg Hydralazine HCl (Apresoline Iv) 10 mg IV Q6H PRN PRN PRN Reason: BLOOD PRESSURE ELEVATION Last Admin: 05/23/18 04:10 Dose: 10 mg Sodium Chloride () 1,000 mls @ 0 mls/hr IV .Q0M [facility] Last Admin: 05/23/18 06:18 Dose: 15 mls/hr Levothyroxine Sodium (Synthroid) 137 mcg PO DAILY@0600 [facility] Last Admin: 05/23/18 06:17 Dose: 137 mcg Magnesium Hydroxide (Milk Of Magnesia) 30 ml PO DAILY PRN PRN PRN Reason: Constipation Nitroglycerin (Nitrostat) 0.4 mg SUBLINGUAL Q5M PRN PRN Reason: CARDIAC/CHEST PAIN Sodium Chloride () 5 - 15 ml IV UD PRN PRN Reason: SALINE FLUSH Last Admin: 05/23/18 04:10 Dose: 10 ml Medical Necessity - Tobacco Use Smoking Status: Never smoker Assessment/Plan All Active Problems (Last Reviewed 05/15/18 @ 11:23 by Shireen Castillo) Segmental and somatic dysfunction of lumbar region (Acute) Segmental and somatic dysfunction of pelvic region (Acute) Segmental and somatic dysfunction of thoracic region (Acute)
[2018-05-23 08:56] LABS: ACT Activated Clotting Time 191 sec (74-137)
--- NOTE | 2018-05-23 09:02 | CL.I_ITS ---
Patient Name: MATEO BEDOYA V Study Date: 05/23/2018 Performing: Jim Ward MD Ht: 66.92 inches 170 cm : 1945 Wt: 227.08 lbs 103 kg Age: 73 Gender: female BSA: 2.13 PROCEDURE(S) PERFORMED [id number] W OR WO PTCA, SINGLE CORONARY ARTERY DX28-MAC W OR WO PTCA EACH ADD'L ART, SAME MAJOR CLINICAL PROFILE AND CO-MORBIDITIES Indications: Suspected CAD, New Onset Angina <= 2 months, Worsening Angina Heart Failure: None Stress/Imaging Stress Test w/SPECT MPI: Yes Result: Indeterminant Stress Test with SPECT MPI: Ind eterminant Angina Classification Anginal Classification w/in 2 Weeks: CCS III CAD Presentations: Unstable angina. Unstable angina. Other: Dyspnea on exertion Comorbidities/Risk Factors: Hypertension Dyslipidemia CONCLUSIONS Successful PTCA/ADMION of distal LAD with a 2.25 x 12 Promus Synergy; 85%-->0%, no dissection. Pt had i dentical CP symptoms with balloon inflation. Successful PTCA/DAMION mid LAD distal to DIAG#2 with a 2.5 x 16 Promus Synergy; 75%-->0%, no dissection. Successful PTCA/DAMION proximal DIAG#2 with a 2.25 x 8 Promus Synergy; 75%-->0%, dissection. Successful PTCA/DAMION mid LAD with a 3.0 x 12 Promus Synergy, post dilated with a 3.0 x 8 NC Balloon; 7 5%-->0%, no dissection or encroachment on DIAG#1. RECOMMENDATIONS Highly recommend quitting all tobacco products Follow up with primary lead engineer Risk factor modification ASA Indefinitley Plavix for at least 12 months Routine post interventional care Refer for Outpatient Cardiac Rehab Manual sheath removal per protocol Follow up with Dr. Ward Elective PCI of mid RCA with long 45 cm sheath in 3-4 weeks, unless symptoms recur. Successful Mynx closure of RFA. DESCRIPTION OF PROCEDURE The patient arrived to the procedure lab. The risks and benefits of the procedure as well as a full d escription of our services here and current unavailability of surgical backup were fully explained to the patient and/or their significant other prior to the catheterization. The Timeout was completed, verifying the correct patient and procedure. The patient's procedural site was prepped and draped in the usual fashion. Local anesthetic was given subcutaneously to right groin region with Lidocaine 2% Using a modified Seldinger technique,arterial access was obtained via the right femoral artery, a 5Fr sheath was inserted. Left Coronary Artery selective angiography was performed in multiple views usin g a 5 Fr. JL4 catheter. Right Coronary Artery selective angiography was then performed in multiple vi ews using a 5 Fr. 3DRC (Sixto) catheter. Left Ventriculography was performed in VEGA projection usi ng a 5 Fr. Pigtail catheter. LV to AO pullback pressures were then recorded.The images were reviewed and options discussed. A decision was then made to proceed with an Intervention, IVUS o r other adjunct procedure. Arterial sheath was exchanged for a 6 Fr 45 cm Sheath. ebu 3.75 Guide catheter was inserted and e ngaged into the LCA. bmw Guide wire was advanced to the LAD. bmw Guide wire was advanced to the 2nd D iagonal. Angiogram performed pre balloon dilatation. emerge 2.00 x 8 Balloon catheter was advanced ac ross lesion in the LAD, distal. PTCA balloon inflated at 8 atms for 9 secs. PTCA balloon inflated at 8 atms for 11 secs. emerge 2.00 x 8 Balloon catheter was advanced across lesion in the LAD, mid. PTCA balloon inflated at 8 atms for 10 secs. PTCA balloon inflated at 8 atms for 10 secs. synergy 2.205 x 12 Drug Eluting stent was advanced across the lesion in the LAD, distal. Angiogram performed post st ent deployment. synergy 2.50 x 16 Drug Eluting stent was advanced across the lesion in the LAD, mid. Angiogram performed pre stent deployment. synergy 2.25 x 8 Drug Eluting stent was advanced across the lesion in the second diagonal, ostial synergy 3.00 x 12 Drug Eluting stent was advanced across the lesion in the LAD, mid. Angiogram performed post stent deployment. Balloon catheter was in serted post stent. Angiogram performed post balloon dilatation. Contrast was injected through the she ath and the Right Iliac and Femoral artery were assessed for possible closure device. The arterial s alexa was pulled and a Mynx closure device was deployed for hemostasis INTERVENTION INFORMATION LESION SITE: LAD (Distal) Lesion Complexity: Non-High/Non-C, lesion at bifurcation: No, thrombus present: No, lesion length: 12 mm, culprit lesion: Yes Pre Stenosis: 85 % Pre intervention CARLENE flow: 3 PROCEDURE: Drug Eluting Stent with pre dilatation. Post Stenosis: 0 % Post intervention CARLENE flow: 3 Lesion Devices: Justin Ridley EMERGE MR 2.00x08 BALLOON Justin Sci Synergy MR DAMION 2.25x12 LESION SITE: LAD (Mid) Lesion Complexity: Non-High/Non-C, lesion at bifurcation: Yes, thrombus present: No, culprit lesion: No Pre Stenosis: 75 % Pre intervention CARLENE flow: 3 PROCEDURE: Drug Eluting Stent with pre dilatation. Post Stenosis: 0 % Post intervention CARLENE flow: 3 Lesion Devices: Justin Ridley EMERGE MR 2.00x08 BALLOON Justin Sci Synergy MR DAMION 2.50x16 LESION SITE: 2nd Diagonal (proximal) Lesion Complexity: Non-High/Non-C, lesion at bifurcation: Yes, thrombus present: No, lesion length: 8 mm, culprit lesion: No Pre Stenosis: 75 % Pre intervention CARLENE flow: 3 PROCEDURE: Drug Eluting Stent Post Stenosis: 0 % Post intervention CARLENE flow: 3 Lesion Devices: Justin Sci Synergy MR DAMION 2.25x08 LESION SITE: LAD (Mid) Lesion Complexity: Non-High/Non-C, lesion at bifurcation: No, thrombus present: No, lesion length: 12 mm, culprit lesion: No Pre Stenosis: 75 % Pre intervention CARLENE flow: 3 PROCEDURE: Drug Eluting Stent with pre and post dilatation Post Stenosis: 0 % Post intervention CARLENE flow: 3 Lesion Devices: Justin Ridley NC EMERGE MR 3.00x08 BALLOON Justin Sci Synergy MR DAMION 3.00x12 COMPLICATIONS No Complications PROCEDURE MEDICATIONS Versed 1 mg IV Versed 1 mg IV Fentanyl 50 mcg IV Oxygen: 2 L/min via nasal cannula Heparin 6000 unit(s) IV 05/23/2018 08:00:45 Nitro 200 mcg IC 05/23/2018 08:04:49 Nitro 200 mcg IC 05/23/2018 08:04:49 Nitro 200 mcg IC 05/23/2018 08:12:38 Nitro drip infusing at 5 mcg ^FreeText^ 05/23/2018 08:24:30 Nitro 200 mcg IC 05/23/2018 08:29:03 Nitro 200 mcg IC 05/23/2018 08:32:55 Nitro drip increased to 10 mcg ^FreeText^ 05/23/2018 08:33:18 Nitro 400 mcg IC 05/23/2018 08:38:47 Nitro drip increased to 20 mcg ^FreeText^ 05/23/2018 08:48:07 Nitro drip increased to 25 mcg ^FreeText^ 05/23/2018 08:54:41 SUMMARY OF HEMODYNAMIC DATA Time AIR REST ECG 07:22:32 AO 178/83 (122) SA 07:36:40 LV 182/13, 23 07:45:07 LV 176/14, 21 07:45:13 LV 185/0, 29 07:46:05 LV 189/0, 29 07:46:12 LVp 188/0, 26 07:46:19 AOp 188/76 (123) 07:46:24 Signed By Jim Ward MD On 05/23/2018 9:01:53 AM Jim Ward MD
--- NOTE | 2018-05-23 09:35 | EKG12_ITS ---
Test Reason : POST STENT Blood Pressure : / mmHG Vent. Rate : 074 BPM Atrial Rate : 074 BPM P-R Int : 216 ms QRS Dur : 098 ms QT Int : 396 ms P-R-T Axes : 041 035 016 degrees QTc Int : 439 ms Sinus rhythm with 1st degree A-V block Otherwise normal ECG When compared with ECG of 23-MAY-2018 05:28, MANUAL COMPARISON REQUIRED, DATA IS UNCONFIRMED Confirmed by HUSAM WATTS, INDIRA ([id number]), greeting card editor JAKI MARSHALL ([id number]) on 05/27/2018 2:47:17 PM Referred By: DANIAL Confirmed By:INDIRA WEINER MD
[2018-05-23] MEDS: 0.9% Normal Saline 1,000 ML 150 ML IV (09:43)
--- NOTE | 2018-05-23 11:01 | PN_ITS ---
<Jacy Kwan - Last Filed: 05/23/18 11:01> Subjective: Patient seen and examined. Recovering from cardiac catheterization in which she underwent PTCA/DAMION of LAD. She denies current chest pain or other complaints. - Physical Exam General: Alert, Oriented x3, Cooperative HEENT: Atraumatic, PERRLA, EOMI, Normocephalic Neck: Supple, No JVD, Negative Carotid Bruits Lungs: Clear to auscultation, Normal air movement Cardiovascular: Regular rate, Regular Rhythm, Normal S1, Normal S2, No murmurs Abdomen: Bowel Sounds Present, Soft, Non Tender, Non-Distended, Obese Extremities: No clubbing, No cyanosis, No edema, Capillary Refill Less than 3 Seconds Skin: No rashes, No breakdown, - - Right groin post cath site intact without evidence of hematoma. Musculoskeletal: No Tenderness to Palpation of Joints or Extremities Neurological: Cranial nerves II-XII grossly intact, Neuro grossly intact Psych/Mental Status: Normal Affect, Appropriate Vital Signs Temp Pulse Resp BP Pulse Ox 97.5 F L 76 18 174/69 H 97 05/23/18 06:16 05/23/18 06:16 05/23/18 06:16 05/23/18 06:16 05/23/18 06:16 Oxygen Delivery Method Room Air Weight: 227 lb 8.273 oz Body Mass Index (BMI) 35.6 Intake and Output for Last 24 Hours 05/21/18 05/22/18 05/23/18 23:59 23:59 23:59 Intake Total 965 / 965 1250 / 1250 Balance 965 / 965 1250 / 1250 Laboratory Tests Past 24 Hrs 05/22/18 05/23/18 05/23/18 22:54 05:15 05:15 WBC 9.3 RBC 4.92 Hgb 13.6 Hct 42.4 MCV 86.2 MCH 27.6 MCHC 32.1 RDW 13.5 RDW Differential 41.8 Plt Count 225 MPV 9.9 Immature Gran % (Auto) 0.300 Neut % (Auto) 59.8 Lymph % (Auto) 27.2 [place] % (Auto) 10.5 H Eos % (Auto) 1.7 Baso % (Auto) 0.5 Absolute Neuts (auto) 5.5 Absolute Lymphs (auto) 2.53 Total Counted Not Reportable PT INR APTT Activated Clotting Time Sodium 143 Potassium 3.7 Chloride 109 H Carbon Dioxide 25.0 Anion Gap 9 BUN 15 Creatinine 0.82 Estim Creat Clear Calc 61.19 Est GFR (MDRD) Af Amer 88 Est GFR (MDRD) Non-Af 73 BUN/Creatinine Ratio 18.3 Glucose 146 H Calcium 8.7 Urine Color Yellow Urine Clarity Clear Urine pH 5.0 Ur Specific [place] 1.020 Urine Protein Negative Urine Glucose (UA) Normal Urine Ketones Negative Urine Occult Blood Negative Urine Nitrite Negative Urine Bilirubin Negative Urine Urobilinogen Normal Ur Leukocyte Esterase 25 H Urine RBC 0 SEEN Urine WBC 0-5 SEEN Ur Squamous Epith Cells 0-5 SEEN Urine Bacteria 0 SEEN Urine Mucus 0 SEEN 05/23/18 05/23/18 05:15 08:36 WBC RBC Hgb Hct MCV MCH MCHC RDW RDW Differential Plt Count MPV Immature Gran % (Auto) Neut % (Auto) Lymph % (Auto) [place] % (Auto) Eos % (Auto) Baso % (Auto) Absolute Neuts (auto) Absolute Lymphs (auto) Total Counted PT 13.7 INR 1.1 APTT 27.7 Activated Clotting Time 191 H Sodium Potassium Chloride Carbon Dioxide Anion Gap BUN Creatinine Estim Creat Clear Calc Est GFR (MDRD) Af Amer Est GFR (MDRD) Non-Af BUN/Creatinine Ratio Glucose Calcium Urine Color Urine Clarity Urine pH Ur Specific [place] Urine Protein Urine Glucose (UA) Urine Ketones Urine Occult Blood Urine Nitrite Urine Bilirubin Urine Urobilinogen Ur Leukocyte Esterase Urine RBC Urine WBC Ur Squamous Epith Cells Urine Bacteria Urine Mucus Medical Necessity - Tobacco Use Smoking Status: Never smoker Assessment/Plan All Active Problems (Last Reviewed 05/15/18 @ 11:23 by Shireen Castillo) Segmental and somatic dysfunction of lumbar region (Acute) Segmental and somatic dysfunction of pelvic region (Acute) Segmental and somatic dysfunction of thoracic region (Acute) 1. Angina with underlying CAD- Patient underwent PTCA/DAMION of distal LAD, mid LAD, and second proximal diagonal 05/23/[address] Ward. Continue aspirin, Plavix. Patient will need to further undergo PCI of mid RCA in the future. Outpatient follow-up with cardiology. Lipid panel in a.m. 2. Hypertension-continue home atenolol regimen. Additionally started on hydrochlorothiazide and losartan. 3. Hypothyroidism-continue Synthroid regimen. 4. Obesity-diet and lifestyle modifications encouraged. DVT prophylaxis-Lovenox subcu This patient was seen by CELESTE Dueñas under the supervision of Dr. Painter. <Aaron Painter - Last Filed: 05/23/18 12:27> - Physical Exam Vital Signs Temp Pulse Resp BP Pulse Ox 98 F 82 17 156/67 H 99 05/23/18 10:00 05/23/18 12:10 05/23/18 11:30 05/23/18 11:45 05/23/18 11:30 Oxygen Delivery Method Room Air Weight: 103.2 kg Body Mass Index (BMI) 35.6 Intake and Output for Last 24 Hours 05/21/18 05/22/18 05/23/18 23:59 23:59 23:59 Intake Total 965 / 965 1250 / 1250 721 / 721 Output Total 750 / 750 Balance 965 / 965 1250 / 1250 - / -29 Laboratory Tests Past 24 Hrs 05/22/18 05/23/18 05/23/18 22:54 05:15 05:15 WBC 9.3 RBC 4.92 Hgb 13.6 Hct 42.4 MCV 86.2 MCH 27.6 MCHC 32.1 RDW 13.5 RDW Differential 41.8 Plt Count 225 MPV 9.9 Immature Gran % (Auto) 0.300 Neut % (Auto) 59.8 Lymph % (Auto) 27.2 [place] % (Auto) 10.5 H Eos % (Auto) 1.7 Baso % (Auto) 0.5 Absolute Neuts (auto) 5.5 Absolute Lymphs (auto) 2.53 Total Counted Not Reportable PT INR APTT Activated Clotting Time Sodium 143 Potassium 3.7 Chloride 109 H Carbon Dioxide 25.0 Anion Gap 9 BUN 15 Creatinine 0.82 Estim Creat Clear Calc 61.19 Est GFR (MDRD) Af Amer 88 Est GFR (MDRD) Non-Af 73 BUN/Creatinine Ratio 18.3 Glucose 146 H Calcium 8.7 Urine Color Yellow Urine Clarity Clear Urine pH 5.0 Ur Specific [place] 1.020 Urine Protein Negative Urine Glucose (UA) Normal Urine Ketones Negative Urine Occult Blood Negative Urine Nitrite Negative Urine Bilirubin Negative Urine Urobilinogen Normal Ur Leukocyte Esterase 25 H Urine RBC 0 SEEN Urine WBC 0-5 SEEN Ur Squamous Epith Cells 0-5 SEEN Urine Bacteria 0 SEEN Urine Mucus 0 SEEN 05/23/18 05/23/18 05:15 08:36 WBC RBC Hgb Hct MCV MCH MCHC RDW RDW Differential Plt Count MPV Immature Gran % (Auto) Neut % (Auto) Lymph % (Auto) [place] % (Auto) Eos % (Auto) Baso % (Auto) Absolute Neuts (auto) Absolute Lymphs (auto) Total Counted PT 13.7 INR 1.1 APTT 27.7 Activated Clotting Time 191 H Sodium Potassium Chloride Carbon Dioxide Anion Gap BUN Creatinine Estim Creat Clear Calc Est GFR (MDRD) Af Amer Est GFR (MDRD) Non-Af BUN/Creatinine Ratio Glucose Calcium Urine Color Urine Clarity Urine pH Ur Specific [place] Urine Protein Urine Glucose (UA) Urine Ketones Urine Occult Blood Urine Nitrite Urine Bilirubin Urine Urobilinogen Ur Leukocyte Esterase Urine RBC Urine WBC Ur Squamous Epith Cells Urine Bacteria Urine Mucus Assessment/Plan This patient was seen in conjunction with CELESTE Dueñas . I have independently interviewed and examined the patient and reviewed pertinent historical, laboratory, and other data. Please refer to CELESTE Dueñas note for details of this patient's presentation, findings, and recommendations. I have reviewed CELESTE Dueñas note and concur with documented findings. In brief, patient is a 73-year-old lady admitted with chest pain and assessment of unstable angina made patient underwent left heart catheterization with PTCA/DAMION of distal and mid LAD and second proximal diagonal on 05/23/[address] Ward plan is for patient undergo staged PCI of mid RCA lesion Physical Examination: GENERAL: cooperative HEENT: Atraumatic; moist oral mucosa EYES; Anicteric, Normal Conjunctiva NECK; supple, normal thyroid, no distended JVD. RESPIRATORY: Diminished to auscultation bilaterally, CARDIOVASCULAR: Regular S1 S2, no audible murmurs GI: soft, non-tender, normoactive bowel sounds, : No Renal angle tenderness; EXTREMITIES: No edema, no clubbing, no cyanosis. PSYCH; Normal affect Assessment: 1. Unstable angina secondary to coronary artery disease underwent left heart catheterization with PTCA/DAMION of distal and mid LAD and second proximal diagonal on 05/23/[address] Ward plan is for patient undergo staged PCI of mid RCA lesion 2. Essential hypertension 3. Hypothyroidism 4. Obesity with BMI of 35.1 5. DVT prophylaxis SC Lovenox Recommendations: 1. I have discussed the results of my overview and impressions with the patient 2. Options for management were reviewed Code Visit Inpatient E&M: 85845 Subs Hosp L3
[2018-05-23] MEDS: Gabapentin 300 MG Capsule PO (11:33)
[2018-05-23] MEDS: hydroCHLOROthiazide 12.5mg 12.5 MG PO (11:33)
[2018-05-23] MEDS: Losartan Potassium 50 MG Tablet PO (11:33)
--- NOTE | 2018-05-23 11:50 | CRPHASE1 ---
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 Phase I Charge:: Level I - Education Risk Factors/Lifestyle Smoking Status: Never smoker Hx Hypertension: Yes Hx Dyslipidemia: Yes Hx Obesity: Yes Height: 1.7 m Weight:: 102.965 kg BMI: 35.5 Stress: Work-related ETOH: No Caffeine: Yes Substance Abuse: No Family History: Family History (Last Reviewed 05/15/18 @ 11:23 by Shireen Castillo) Other Heart disease Hypertension Past Cardiac Illness: Other - thyroid on synthroid Hospital Course Pain Description: Sharp, Tightness, Aching Cardiac Cath Date:: 05/23/18 Medical/Surgical History OR:: No Angina:: Yes Hypertension:: Yes Dyslipidemia:: Yes Thyroid:: Yes Depression:: No Anxiety:: No PTCA:: Yes Discharge/Home/Social Eval Discharge Disposition: Home [facility]
--- NOTE | 2018-05-23 11:54 | CRPHASE1_ITS ---
Patient Data/Charges Former Patient:: Phase I Recovery Room Nurse:: Jim Ward Phase I Charge:: Level I - Education Risk Factors/Lifestyle Smoking Status: Never smoker Hx Hypertension: Yes Hx Dyslipidemia: Yes Hx Obesity: Yes Height: 1.7 m Weight:: 102.965 kg BMI: 35.5 Stress: Work-related ETOH: No Caffeine: Yes Substance Abuse: No Family History: Family History (Last Reviewed 05/15/18 @ 11:23 by Shireen Castillo) Other Heart disease Hypertension Past Cardiac Illness: Other - thyroid on synthroid Hospital Course Pain Description: Sharp, Tightness, Aching Cardiac Cath Date:: 05/23/18 Medical/Surgical History SD:: No Angina:: Yes Hypertension:: Yes Dyslipidemia:: Yes Thyroid:: Yes Depression:: No Anxiety:: No PTCA:: Yes Discharge/Home/Social Eval Discharge Disposition: Home [facility]
--- NOTE | 2018-05-23 11:54 | CRPHASE1 ---
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 Phase I Charge:: Level I - Education Risk Factors/Lifestyle Smoking Status: Never smoker Hx Hypertension: Yes Hx Obesity: Yes Height: 1.7 m Weight:: 103.2 kg BMI: 35.6 ETOH: No Caffeine: Yes Substance Abuse: No Family History: Family History (Last Reviewed 05/15/18 @ 11:23 by Shireen Castillo) Other Heart disease Hypertension Phase I Education Given On:: [place] Issues Affecting Care:: None Knowledge of Condition:: Yes Hospital Course Pain Description: Sharp, Aching, Pressure Cardiac Cath Date:: 05/23/18 Medical/Surgical History MD:: No Angina:: Yes Hypertension:: Yes Dyslipidemia:: Yes Depression:: No Anxiety:: No PTCA:: Yes Discharge/Home/Social Eval Discharge Disposition: Home Marital Status: -
--- NOTE | 2018-05-23 11:56 | CRPH1.INSTRU ---
General Education CAD and cardiac anatomy and function:: Patient communicates acknowledgment Explanation of diagnoses and procedures:: Patient communicates acknowledgment Sign/Symptoms of MA:: Patient communicates acknowledgment Antiplatelet therapy: Not instructed Proper use of NTG-SL: Not instructed Emergency procedures and activation of EMS: Patient communicates acknowledgment Compliance of all prescribed medications: Not instructed Smoking Patient Nicotine/Smoking Risk Factors Are:: Never smoked Dyslipidemia Recommendations Include:: Lipid profile not available Overweight/Obesity Patient Overweight/Obesity Risk Factors Are:: Obesity - > or = 30 Overweight/Obesity:: Patient communicates acknowledgment Hypertension Recommendations Include:: Maintain BP <130/85 Hypertension:: Patient communicates acknowledgment Heart Disease Patient Heart Disease Risk Factors Are:: Family history of heart disease < 65 years old, Previous cardiac event Heart Disease Response Code:: Patient communicates acknowledgment - nothing done previous cath 15 yrs ago Diabetes Patient Diabetes Risk Factors Are:: No documented hx of diabetes Metabolic Syndrome Patient Metabolic Syndrome Risk Factors Are [3 of 5]:: Hypertension Recommendations Include:: Does not meet criteria Sedentary Recommendations Include:: Benefits of regular exercise, Discussed home walking program Sedentary Response Code:: Patient communicates acknowledgment Stress Patient Stress Risk Factors Are:: Patient denies stress as a risk factor
[2018-05-23] MEDS: Acetaminophen 325 MG Tablet 650 MG PO (12:42)
[2018-05-23] MEDS: hydrALAZINE 20 MG/ML Vial IV (13:46)
--- NOTE | 2018-05-23 14:00 | CASEMGMT ---
DESTINEE LUONG to room to talk with pt. Pt sitting up quietly in bed. Introduced self and role of DESTINEE LUONG. Reviewed [facility] form with pt, questions answered, and form signed. Copy placed on chart and original given to patient. Pt also given MCR Are you a hospital inpatient or outpatient information sheets. Pt lives with her and is independent. Pt has [employer] insurance and has prescription coverage. Pt denies having concerns on discharge. Plans are for pt to discharge home on ASA and Plavix. Mady MICHEL RN CM
[2018-05-23] MEDS: Mag Hydrox/Al Hydrox/Simeth 30 ML UDC 15 ML PO (15:17)
[2018-05-23] MEDS: Atorvastatin Calcium 80 MG Tablet PO (20:59)
[2018-05-24] VITALS (14 sets, daily range): BP systolic 111–156; BP diastolic 47–85; PULSE 74–88; RESP 14–23; TEMP 37–37.7; O2SAT 92–97
[2018-05-24 03:35] LABS: Hematocrit 41.8 % (37-47); Hemoglobin 13.2 g/dl (12.0-15.0); Mean Corp Hgb Conc 31.6 g/gl (32-36); Mean Corpuscular Hgb 27.2 pg (27.0-32.0); Mean Corpuscular Volume 86.2 fL (81-99); Mean Platelet Vol. 9.8 fl (6.2-12.0); Platelet Count 265 K/mm3 (150-450); RBC Distribution Width CV 13.8 % (11.6-14.6); RBC Distribution Width SD 42.3 fl (35.1-43.9); Red Blood Count 4.85 M/mm3 (4.2-5.4); White Blood Count 17.5 K/mm3 (4.4-11.0)
[2018-05-24 03:38] LABS: Scan Indicated on CBC? Y/N NO
[2018-05-24 03:51] LABS: Anion Gap 10 (5-15); BUN 12 mg/dL (7-18); BUN/Creat Ratio 13.3 RATIO (10-20); Chloride 106 mmol/L (98-107); Cholesterol 198 mg/dL (200); EST Glomerular Filtration Rate 66 mL/min (>60); Est Glom Filt Rate - Afr Amer 79 mL/min (>60); Estimated Creatinine Clearance 53.67 ml/min; Glucose 141 mg/dL (74-106); High Density Lipoprotein 31 mg/dL; Potassium 3.7 mmol/L (3.5-5.1); Sodium Level 141 mmol/L (136-145); Triglycerides 182 mg/dL; Very Low Density Lipoprotein 36 mg/dL (5-40)
[2018-05-24] MEDS: Levothyroxine 137 MCG Tablet PO (05:35)
--- NOTE | 2018-05-24 07:54 | PN_ITS ---
Subjective: Patient seen had a relatively uneventful night plan is for patient to be discharged home pending adjustment of medications. Objective: GENERAL: cooperative HEENT: Atraumatic; moist oral mucosa EYES; Anicteric, Normal Conjunctiva NECK; supple, normal thyroid, no distended JVD. RESPIRATORY: Diminished to auscultation bilaterally, CARDIOVASCULAR: Regular S1 S2, no audible murmurs GI: soft, non-tender, normoactive bowel sounds, : No Renal angle tenderness; EXTREMITIES: No edema, no clubbing, no cyanosis. PSYCH; Normal affect Vitals/I&O's: Vital Signs Temp Pulse Resp BP Pulse Ox 99.0 F 82 16 156/65 H 96 05/24/18 04:00 05/24/18 07:02 05/24/18 07:00 05/24/18 07:00 05/24/18 07:15 Oxygen Delivery Method Room Air Weight: 103.2 kg Body Mass Index (BMI) 35.6 Intake and Output for Last 24 Hours 05/22/18 05/23/18 05/24/18 23:59 23:59 23:59 Intake Total 1250 / 1250 2049 / 2049 Output Total 1375 / 1375 Balance 1250 / 1250 674 / 674 Laboratory Results 05/23/18 08:36: Activated Clotting Time 191 H 05/24/18 03:30: Sodium 141, Potassium 3.7, Chloride 106, Carbon Dioxide 25.0, Anion Gap 10, BUN 12, Creatinine 0.90, Estim Creat Clear Calc 53.67, Est GFR (MDRD) Af Amer 79, Est GFR (MDRD) Non-Af 66, BUN/Creatinine Ratio 13.3, Glucose 141 H, Calcium 9.0, Triglycerides 182, Cholesterol 198, LDL Cholesterol 131 H, VLDL Cholesterol 36, HDL Cholesterol 31 L 05/24/18 03:30: WBC 17.5 H, RBC 4.85, Hgb 13.2, Hct 41.8, MCV 86.2, MCH 27.2, MCHC 31.6 L, RDW 13.8, RDW Differential 42.3, Plt Count 265, MPV 9.8 Current Medications Acetaminophen (Tylenol) 650 mg PO Q6H PRN PRN PRN Reason: Mild Pain (0-2/10) Last Admin: 05/23/18 12:42 Dose: 650 mg Al Hydroxide/Mg Hydroxide (Mylanta Ii) 15 ml PO Q4H PRN PRN PRN Reason: INDIGESTION Last Admin: 05/23/18 15:17 Dose: 15 ml Aspirin (Aspirin, Baby) 81 mg PO DAILY@0800 [facility] Last Admin: 05/23/18 06:18 Dose: 81 mg Atenolol (Tenormin (Beta Raf)) 100 mg PO DAILY [facility] Last Admin: 05/23/18 06:18 Dose: 100 mg Atorvastatin Calcium (Lipitor) 80 mg PO QHS [facility] Last Admin: 05/23/18 20:59 Dose: 80 mg Atropine Sulfate () 0.5 mg IV UD PRN PRN Reason: HR <50 bpm Clopidogrel Bisulfate (Plavix) 75 mg PO DAILY [facility] Last Admin: 05/23/18 06:18 Dose: 75 mg Gabapentin (Neurontin) 300 mg PO DAILYCM [facility] Last Admin: 05/23/18 11:33 Dose: 300 mg Heparin Sodium (Beef Lung) (Heparin 500 Unit/5 Ml (100/Ml)) 500 unit IV UD PRN PRN Reason: HEPARIN FLUSH Hydralazine HCl (Apresoline Iv) 10 mg IV Q6H PRN PRN PRN Reason: BLOOD PRESSURE ELEVATION Last Admin: 05/23/18 04:10 Dose: 10 mg Hydrochlorothiazide () 12.5 mg PO DAILY [facility] Last Admin: 05/23/18 11:33 Dose: 12.5 mg Sodium Chloride () 1,000 mls @ 0 mls/hr IV .Q0M [facility] Last Admin: 05/23/18 06:18 Dose: 15 mls/hr Nitroglycerin/Dextrose 25 mg/ (N/A) 250 mls @ 3 mls/hr IV .[id number] [facility] Last Admin: 05/23/18 09:43 Dose: Not Given Labetalol HCl (Trandate) 5 mg IV X1 PRN PRN Reason: SBP >160 PRIOR TO SHEATH PULL Levothyroxine Sodium (Synthroid) 137 mcg PO DAILY@0600 [facility] Last Admin: 05/24/18 05:35 Dose: 137 mcg Lorazepam (Ativan) 1 mg PO Q6H PRN PRN PRN Reason: BACK SPASMS/ANXIETY Losartan Potassium (Cozaar) 50 mg PO DAILY [facility] Last Admin: 05/23/18 11:33 Dose: 50 mg Magnesium Hydroxide (Milk Of Magnesia) 30 ml PO DAILY PRN PRN PRN Reason: Constipation Morphine Sulfate () 2 mg IV Q4H PRN PRN PRN Reason: Mild back pain (0-2/10) Nitroglycerin (Nitrostat) 0.4 mg SUBLINGUAL Q5M PRN PRN Reason: CARDIAC/CHEST PAIN Nitroglycerin (Nitrostat) 0.4 mg SUBLINGUAL Q5M PRN PRN Reason: CARDIAC/CHEST PAIN Sodium Chloride () 5 - 15 ml IV UD PRN PRN Reason: SALINE FLUSH Last Admin: 05/23/18 04:10 Dose: 10 ml Sodium Chloride () 500 ml IV BOLUS PRN PRN Reason: VASO-VAGAL PROTOCOL Medical Necessity - Tobacco Use Smoking Status: Never smoker Assessment/Plan All Active Problems (Last Updated 05/23/18 @ 15:35 by aNtasha Oro) History of coronary artery stent placement (Resolved 05/23/18) Segmental and somatic dysfunction of lumbar region (Resolved) Segmental and somatic dysfunction of pelvic region (Resolved) Segmental and somatic dysfunction of thoracic region (Resolved) patient is a 73-year-old lady admitted with chest pain and assessment of unstable angina made patient underwent left heart catheterization with PTCA/DAMION of distal and mid LAD and second proximal diagonal on 05/23/[address] Ward plan is for patient undergo staged PCI of mid RCA lesion 1. Unstable angina secondary to coronary artery disease underwent left heart catheterization with PTCA/DAMION of distal and mid LAD and second proximal diagonal on 05/23/[address] Ward plan is for patient undergo staged PCI of mid RCA lesion 2. Essential hypertension 3. Hypothyroidism 4. Obesity with BMI of 35.1 5. DVT prophylaxis SC Lovenox Code Visit Inpatient E&M: 84555 Subs Hosp L2
[2018-05-24] MEDS: Gabapentin 300 MG Capsule PO (07:59)
[2018-05-24] MEDS: Aspirin 81 MG TAB.CHEW PO (07:59)
--- NOTE | 2018-05-24 11:10 | PCM.PN.CARD ---
Subjectve: Patient seen and evaluated. Appears to be doing well. No cardiovascular issues. Objective: Vital Signs Temp Pulse Resp BP Pulse Ox 99.8 F H 74 18 131/47 H 93 05/24/18 08:00 05/24/18 11:00 05/24/18 11:00 05/24/18 11:00 05/24/18 11:00 Oxygen Delivery Method Room Air Weight: 227 lb 8.273 oz Body Mass Index (BMI) 35.6 Intake and Output for Last 24 Hours 05/22/18 05/23/18 05/24/18 23:59 23:59 23:59 Intake Total 1250 / 1250 2049 / 2049 Output Total 1375 / 1375 Balance 1250 / 1250 674 / 674 General: Awake, Alert, Oriented x 3 HEENT: PERRL, EOMI, Sclera Non Icteric Neck: Supple, Good ROM, No Lymph Node Enlargement Lungs: Clear to auscultation Cardiovascular: Regular Rhythm, Normal S1, Normal S2, No Murmurs, No Rubs, No Gallops Vascular: No Carotid Bruits, Normal Femoral Pulses, Normal Radial Pulses, Normal Dorsalis Pedal Pulse, Normal Posterior Tibial Pulses Abdomen: Bowel Sounds Present, Soft, Non Tender, No HSM, No Organomegaly Extremities: No Cyanosis, No Clubbing, No edema Neurological: No Focal Motor or Sensory Deficit Psych/Mental Status: Appropriate 05/24/18 03:30: Sodium 141, Potassium 3.7, Chloride 106, Carbon Dioxide 25.0, Anion Gap 10, BUN 12, Creatinine 0.90, Est GFR (MDRD) Af Amer 79, Est GFR (MDRD) Non-Af 66, BUN/Creatinine Ratio 13.3, Glucose 141 H, Calcium 9.0, Triglycerides 182, Cholesterol 198, LDL Cholesterol 131 H, VLDL Cholesterol 36, HDL Cholesterol 31 L 05/24/18 03:30: WBC 17.5 H, RBC 4.85, Hgb 13.2, Hct 41.8, MCV 86.2, MCH 27.2, MCHC 31.6 L, RDW 13.8, RDW Differential 42.3, Plt Count 265, MPV 9.8 Rhythm: EKG: ECHO: Stress Test: Cardiac Cath: PCI: CT Surgery: Holter monitor: EPS: PPM: CXR: Chest CT Scan: Medical Necessity - Tobacco Use Smoking Status: Never smoker Assessment/Plan 1. Chest pain Patient presents with chest discomfort and shortness of breath with exertion and is noted to have a stress test with EKG abnormalities by nuclear imaging demonstrating no evidence of ischemia. At this time it is felt that due to the worsening of his symptoms over the last week that we should proceed with a left heart catheterization. Cardiac catheterization demonstrated the following: Normal left main coronary artery. Left anterior descending artery with moderate disease noted in the proximal segment, severe disease noted in the mid and distal segments. First diagonal vessel with moderately severe disease. Left circumflex artery with mild diffuse stenosis. Dominant large right coronary artery with high-grade maximal stenosis. Preserved ejection fraction. Based on the above angiographic findings the patient underwent angioplasty and stenting of the left anterior descending artery and diagonal vessel. The patient will be brought back in a few weeks to undergo stenting of the right coronary artery. 2. Hypertension Blood pressure appears to be under suboptimal control Would recommend aggressive blood pressure control Thank you for allowing me to participate in the care of your patient. Please don't hesitate to call if any issues arise
--- NOTE | 2018-05-24 11:13 | PN.CARD_ITS ---
Subjectve: Patient seen and evaluated. Appears to be doing well. No cardiovascular issues. Objective: Vital Signs Temp Pulse Resp BP Pulse Ox 99.8 F H 74 18 131/47 H 93 05/24/18 08:00 05/24/18 11:00 05/24/18 11:00 05/24/18 11:00 05/24/18 11:00 Oxygen Delivery Method Room Air Weight: 227 lb 8.273 oz Body Mass Index (BMI) 35.6 Intake and Output for Last 24 Hours 05/22/18 05/23/18 05/24/18 23:59 23:59 23:59 Intake Total 1250 / 1250 2049 / 2049 Output Total 1375 / 1375 Balance 1250 / 1250 674 / 674 General: Awake, Alert, Oriented x 3 HEENT: PERRL, EOMI, Sclera Non Icteric Neck: Supple, Good ROM, No Lymph Node Enlargement Lungs: Clear to auscultation Cardiovascular: Regular Rhythm, Normal S1, Normal S2, No Murmurs, No Rubs, No Gallops Vascular: No Carotid Bruits, Normal Femoral Pulses, Normal Radial Pulses, Normal Dorsalis Pedal Pulse, Normal Posterior Tibial Pulses Abdomen: Bowel Sounds Present, Soft, Non Tender, No HSM, No Organomegaly Extremities: No Cyanosis, No Clubbing, No edema Neurological: No Focal Motor or Sensory Deficit Psych/Mental Status: Appropriate 05/24/18 03:30: Sodium 141, Potassium 3.7, Chloride 106, Carbon Dioxide 25.0, Anion Gap 10, BUN 12, Creatinine 0.90, Est GFR (MDRD) Af Amer 79, Est GFR (MDRD) Non-Af 66, BUN/Creatinine Ratio 13.3, Glucose 141 H, Calcium 9.0, Triglycerides 182, Cholesterol 198, LDL Cholesterol 131 H, VLDL Cholesterol 36, HDL Cholesterol 31 L 05/24/18 03:30: WBC 17.5 H, RBC 4.85, Hgb 13.2, Hct 41.8, MCV 86.2, MCH 27.2, MCHC 31.6 L, RDW 13.8, RDW Differential 42.3, Plt Count 265, MPV 9.8 Rhythm: EKG: ECHO: Stress Test: Cardiac Cath: PCI: CT Surgery: Holter monitor: EPS: PPM: CXR: Chest CT Scan: Medical Necessity - Tobacco Use Smoking Status: Never smoker Assessment/Plan 1. Chest pain * Patient presents with chest discomfort and shortness of breath with exertion and is noted to have a stress test with EKG abnormalities by nuclear imaging demonstrating no evidence of ischemia. At this time it is felt that due to the worsening of his symptoms over the last week that we should proceed with a left heart catheterization. * Cardiac catheterization demonstrated the following: Normal left main coronary artery. Left anterior descending artery with moderate disease noted in the proximal segment, severe disease noted in the mid and distal segments. First diagonal vessel with moderately severe disease. Left circumflex artery with mild diffuse stenosis. Dominant large right coronary artery with high-grade maximal stenosis. Preserved ejection fraction. Based on the above angiographic findings the patient underwent angioplasty and stenting of the left anterior descending artery and diagonal vessel. The patient will be brought back in a few weeks to undergo stenting of the right coronary artery. * 2. Hypertension * Blood pressure appears to be under suboptimal control * Would recommend aggressive blood pressure control * * Thank you for allowing me to participate in the care of your patient. Please don't hesitate to call if any issues arise
[2018-05-24] MEDS: Atenolol 100 MG Tablet PO (11:21)
[2018-05-24] MEDS: hydroCHLOROthiazide 12.5mg 12.5 MG PO (11:21)
[2018-05-24] MEDS: Clopidogrel Bisulfate 75 MG Tablet PO (11:21)
[2018-05-24] MEDS: Losartan Potassium 50 MG Tablet PO (11:22)
--- NOTE | 2018-05-24 11:27 | DCINST_ITS ---
- Discharge Diagnoses Current Active Problems: Current Active and Chronic Problems (Last Updated 05/23/18 @ 15:35 by Natasha Oro) Atherosclerosis of coronary artery of [place] heart without angina pectoris (Chronic) [id number] LAD with a 2.25 x 12 mm Promus Synergy, DAMION- mid LAD distal to DIAG#2 with a 2.5 x 16 mm Promus Synergy, DAMION- mid LAD with a 3.0 x 12 mm Promus Synergy, DAMION proximal DIAG#2 with a 2.25 x 8 mm Promus Synergy 05/23/2018 Essential (primary) hypertension (Chronic) You will use the following diet at home:: Cardiac Your food should be the consistency of: Regular Allergies/Adverse Reactions: Allergies bee venom protein (honey bee) Allergy (Verified 05/21/18 09:47) Anaphylaxis Medications to take at Discharge atenolol 50 mg tablet 100 mg PO DAILY 12/24/17 gabapentin 300 mg capsule 300 mg PO DAILY 12/24/17 levothyroxine 137 mcg tablet 137 mcg PO DAILY 12/24/17 Aspirin [Aspirin, Baby] 81 mg PO DAILY@0800 #30 tab.chew 05/22/18 Nitroglycerin [Nitrostat] 0.4 mg SL PRN PRN #30 tab.subl 05/22/18 Atorvastatin Calcium [Lipitor] 80 mg PO QHS #90 tablet 05/24/18 Clopidogrel Bisulfate [Plavix] 75 mg PO DAILY #90 tablet 05/24/18 Losartan Potassium [Cozaar] 50 mg PO DAILY #90 tablet 05/24/18 hydroCHLOROthiazide [Hydrochlorothiazide] 12.5 mg PO DAILY #90 capsule 05/24/18 The following prescriptions were given: Aspirin [Aspirin, Baby] 81 mg PO DAILY@0800 #30 tab.chew Atorvastatin Calcium [Lipitor] 80 mg PO QHS #90 tablet Clopidogrel Bisulfate [Plavix] 75 mg PO DAILY #90 tablet hydroCHLOROthiazide [Hydrochlorothiazide] 12.5 mg PO DAILY #90 capsule Losartan Potassium [Cozaar] 50 mg PO DAILY #90 tablet Nitroglycerin [Nitrostat] 0.4 mg SL PRN PRN #30 tab.subl PRN Reason: Cardiac/Chest Pain Primary Care Physician: Dilan Valle MD [Primary Care Provider] - Please follow up with your Primary Care Physician in: in 1-2 weeks Test Results: Test results from this visit will be discussed in further detail at your follow- up appointment, if applicable. Please Follow Up With: Luciano Man MD When: in 2-4 weeks Proposed Discharge Date: 05/24/18
--- NOTE | 2018-05-24 11:28 | PCM.DC.SUM ---
Discharge Date and Diagnosis - Problem List Patient Problems: Active and Suspected Problems (Last Updated 05/23/18 @ 15:35 by Natasha Oro) Unstable angina (Acute) Date of Admission: 05/21/18 Date of Discharge: 05/24/18 - Primary Discharge Diagnosis Active and Suspected Problems (Last Updated 05/23/18 @ 15:35 by Natasha Oro) Unstable angina (Acute) - Secondary Discharge Diagnosis Chronic Problems (Last Updated 05/23/18 @ 15:35 by Natasha Oro) Atherosclerosis of coronary artery of [place] heart without angina pectoris (Chronic) [id number] LAD with a 2.25 x 12 mm Promus Synergy, DAMION- mid LAD distal to DIAG#2 with a 2.5 x 16 mm Promus Synergy, DAMION- mid LAD with a 3.0 x 12 mm Promus Synergy, DAMION proximal DIAG#2 with a 2.25 x 8 mm Promus Synergy 05/23/2018 Essential (primary) hypertension (Chronic) Hospital Course and Treatment Summary of Care Provided: The patient is a 73 year old F admitted with chest pain and assessment of unstable angina made patient underwent left heart catheterization with PTCA/DAMION of distal and mid LAD and second proximal diagonal on 05/23/[address] Ward plan is for patient undergo staged PCI of mid RCA lesion 1. Unstable angina secondary to coronary artery disease underwent left heart catheterization with PTCA/DAMION of distal and mid LAD and second proximal diagonal on 05/23/[address] Ward plan is for patient undergo staged PCI of mid RCA lesion 2. Essential hypertension-blood pressure controlled, home medications continued with dose adjustment as needed 3. Hypothyroidism-patient is on levothyroxine home dose continued 4. Obesity with BMI of 35.1; lifestyle modification including weight loss advised 5. DVT prophylaxis SC Lovenox Patient Problems: Active and Suspected Problems (Last Updated 05/23/18 @ 15:35 by Natasha Oro) Unstable angina (Acute) Objective: GENERAL: cooperative HEENT: Atraumatic; moist oral mucosa EYES; Anicteric, Normal Conjunctiva NECK; supple, normal thyroid, no distended JVD. RESPIRATORY: Diminished to auscultation bilaterally, CARDIOVASCULAR: Regular S1 S2, no audible murmurs GI: soft, non-tender, normoactive bowel sounds, : No Renal angle tenderness; EXTREMITIES: No edema, no clubbing, no cyanosis. PSYCH; Normal affect - Physical Exam Vital Signs Temp Pulse Resp BP Pulse Ox 99.8 F H 74 18 131/47 H 93 05/24/18 08:00 05/24/18 11:00 05/24/18 11:00 05/24/18 11:00 05/24/18 11:00 Oxygen Delivery Method Room Air Weight: 103.2 kg Body Mass Index (BMI) 35.6 Intake and Output for Last 24 Hours 05/22/18 05/23/18 05/24/18 23:59 23:59 23:59 Intake Total 1250 / 1250 2049 / 2049 Output Total 1375 / 1375 Balance 1250 / 1250 674 / 674 Laboratory Tests Past 24 Hrs 05/24/18 05/24/18 03:30 03:30 WBC 17.5 H RBC 4.85 Hgb 13.2 Hct 41.8 MCV 86.2 MCH 27.2 MCHC 31.6 L RDW 13.8 RDW Differential 42.3 Plt Count 265 MPV 9.8 Sodium 141 Potassium 3.7 Chloride 106 Carbon Dioxide 25.0 Anion Gap 10 BUN 12 Creatinine 0.90 Estim Creat Clear Calc 53.67 Est GFR (MDRD) Af Amer 79 Est GFR (MDRD) Non-Af 66 BUN/Creatinine Ratio 13.3 Glucose 141 H Calcium 9.0 Triglycerides 182 Cholesterol 198 LDL Cholesterol 131 H VLDL Cholesterol 36 HDL Cholesterol 31 L Discharge Diet: Low fat/ Low Cholesterol Discharge Activity: Return to Normal Activity Home Medications: Medications to take at Discharge atenolol 50 mg tablet 100 mg PO DAILY 12/24/17 gabapentin 300 mg capsule 300 mg PO DAILY 12/24/17 levothyroxine 137 mcg tablet 137 mcg PO DAILY 12/24/17 Aspirin [Aspirin, Baby] 81 mg PO DAILY@0800 #30 tab.chew 05/22/18 Nitroglycerin [Nitrostat] 0.4 mg SL PRN PRN #30 tab.subl 05/22/18 Atorvastatin Calcium [Lipitor] 80 mg PO QHS #90 tablet 05/24/18 Clopidogrel Bisulfate [Plavix] 75 mg PO DAILY #90 tablet 05/24/18 Losartan Potassium [Cozaar] 50 mg PO DAILY #90 tablet 05/24/18 hydroCHLOROthiazide [Hydrochlorothiazide] 12.5 mg PO DAILY #90 capsule 05/24/18 Following Prescrptions Were Given to Patient: Aspirin [Aspirin, Baby] 81 mg PO DAILY@0800 #30 tab.chew Atorvastatin Calcium [Lipitor] 80 mg PO QHS #90 tablet Clopidogrel Bisulfate [Plavix] 75 mg PO DAILY #90 tablet hydroCHLOROthiazide [Hydrochlorothiazide] 12.5 mg PO DAILY #90 capsule Losartan Potassium [Cozaar] 50 mg PO DAILY #90 tablet Nitroglycerin [Nitrostat] 0.4 mg SL PRN PRN #30 tab.subl PRN Reason: Cardiac/Chest Pain Primary Care Physician: Dilan Valle MD [Primary Care Provider] - Please follow up with your Primary Care Physician in: in 1-2 weeks Please Follow Up With: Luciano Man MD When: in 2-4 weeks Disposition: Home Minutes spent on discharge:: 45 Patient Condition:: Stable Medical Necessity - Tobacco Use Smoking Status: Never smoker Meaningful Use Info Meaningful Use Diagnoses (Choose all that apply): None applicable - AMI Aspirin given w/in 24hrs of arrival?: Yes ASA at discharge?: Yes Statins at discharge?: Yes [place]/ARB at discharge?: Yes Beta Raf at discharge?: Yes Code Visit Inpatient E&M: 04577 Disch Hosp
== END 2018-05-24 12:05 | disposition home or self-care (01) | DRG 246 ==
LOC: ED 09:33 → PCU 11:26 → ICU 05-23 08:22
PROVIDERS: Internal Medicine Cardiovascular Disease; Admitting Provider Student in an Organized Health Care Education/Training Program; Emergency Provider Emergency Medicine; Family Provider Family Medicine; PCP Family Medicine; Visit Provider Internal Medicine
DX: I25.110 Atherosclerotic heart disease of native coronary artery with unstable angina pectoris (principal); E89.0 Postprocedural hypothyroidism; I10 Essential (primary) hypertension; E66.9 Obesity, unspecified; Z68.35 Body mass index [BMI] 35.0-35.9, adult
CPT/HCPCS: 36415; 71045; 78452; 80048; 80061; 81001; 84484; 85025; 85027; 85347; 85610; 85730; 92928; 92929; 93005; 93017; 93458; 99283; A9500; C1760; J7030; A4216; C1725; C1769; C1874; C1887; C1894; C9600; C9601; Q9967

== ENCOUNTER 2018-06-03 04:42 | Emergency (ER) | payer MEDICARE, SELFPAY ==
[2018-05-21 11:44] VITALS: BMI 35.6
[2018-05-23 11:56] VITALS: BMI 35.6
[2018-06-03 04:42] VITALS: BP 182/81; PULSE 80; RESP 19; TEMP 36.4; O2SAT 96; BMI 35.7
--- NOTE | 2018-06-03 05:19 | EKG12_ITS ---
Test Reason : HEADACHE Blood Pressure : / mmHG Vent. Rate : 073 BPM Atrial Rate : 073 BPM P-R Int : 188 ms QRS Dur : 100 ms QT Int : 386 ms P-R-T Axes : 006 002 006 degrees QTc Int : 425 ms Normal sinus rhythm Minimal voltage criteria for LVH, may be normal variant Borderline ECG Confirmed by HUSAM WATTS, INDIRA ([id number]), assignment desk editor NARDA DE ([id number]) on 06/07/2018 9:07:48 AM Referred By: MILLIE Confirmed By:INDIRA WEINER MD
--- NOTE | 2018-06-03 05:22 | ED.DCSUM_ITS ---
- ER Visit Summary Date of Service: 06/03/18 Chief Complaint: Headache History of Present Illness: The patient is a 73 F who presents with a headache that began this morning. Patient states she woke up and noticed her headache. Patient states this feels similar to prior headaches that she had when her blood pressure was elevated. Patient checked her blood pressure at home and saw that it was elevated. Patient took 2 atenolol 50 mg tablets. Patient waited approximately 30 minutes and noticed her blood pressure was still elevated. Patient then came to the emergency department. Patient denies any other symptoms. Physical Examination: Vital signs are stable except for an elevated blood pressure 182/81. Patient is afebrile. Patient is in no acute distress. Oral mucosa is pink and moist. Neck is supple. Trachea is midline. There is no JVD noted. Heart was regular rate and rhythm. Lungs are clear and equal bilateral. Abdomen is soft and nontender. Cranial nerves II through XII are intact. There are no focal motor or sensory deficits noted. There is no calf tenderness or edema noted. Test Results: CBC, basic metabolic profile, troponin were obtained and were all normal. EKG showed normal sinus rhythm with a rate of 73. There are no acute ST or T wave changes. There are no prior EKGs available for comparison. Emergency Department Course and Treatment: Patient was placed on a cardiac mo nitor. Patient was given a dose of labetalol 10 mg IV here. Patient's blood pressure improved. Patient states her headache is improved. Patient was instructed to follow-up with her primary care physician tomorrow as scheduled for further evaluation of her blood pressure medications. Patient and her understood and were agreeable with the plan. All questions were answered. Disposition: Discharge home Impression: Hypertension This note was generated with [employer] dictation software. It may contain incorrect words, spelling, and punctuation that were not noted in review of the chart prior to signing ED Disposition - Plan for ED Patient: Referrals: Dilan Valle MD [Primary Care Provider] -
[2018-06-03 05:42] LABS: Mucous, Urine 0 SEEN /hpf (<or=2+); Red Blood Cells-Urine 0 SEEN /hpf (0-5)
[2018-06-03 05:44] LABS: Color, Urine Yellow (Yellow); Glucose, Dipstick Normal (Normal); Ketone-Dipstick Negative (Negative); Leukocyte Esterase-Dipstick 25 /ul (Negative); Nitrite-Dipstick Negative (Negative); Occult Blood-Urine Negative /ul (Negative); Protein-Dipstick Negative (Negative); Urine Bilirubin Dipstick Negative (Negative); Urine Clarity Clear (Clear); Urine Urobilinogen Normal (Normal)
[2018-06-03 05:46] VITALS: BP 150/66; PULSE 85; RESP 18; O2SAT 93
[2018-06-03 06:06] LABS: Bacteria RARE /hpf (None Seen); Squamous Epithelial Cells - UA 0-5 SEEN /hpf (5-10); White Blood Cells 0-5 SEEN /hpf (0-5)
[2018-06-03 06:16] LABS: Anion Gap 11 (5-15); BUN 12 mg/dL (7-18); BUN/Creat Ratio 13.4 RATIO (10-20); Chloride 102 mmol/L (98-107); Creatinine, Serum 0.89 mg/dL (0.55-1.02); EST Glomerular Filtration Rate 66 mL/min (>60); Est Glom Filt Rate - Afr Amer 80 mL/min (>60); Estimated Creatinine Clearance 56.38 ml/min; Glucose 187 mg/dL (74-106); Potassium 3.7 mmol/L (3.5-5.1); Sodium Level 141 mmol/L (136-145)
[2018-06-03 06:18] LABS: Absolute Lymphocyte Count 2.22 X10^3/ul (0.83-4.51); Absolute Neutrophil Count 10.1 X10^3/uL (2.0-7.7); Basophil# 0.08 X10^3/uL; Basophil% 0.6 % (0-1); Differential Indicated SCAN CRITERIA MET; Eosinophil# 0.27 X10^3/uL; Eosinophils% 1.9 % (0-5); Hematocrit 43.1 % (37-47); Hemoglobin 13.9 g/dl (12.0-15.0); Lymphocyte # 2.22 X10^3/ul (4.0); Lymphocyte % 15.5 % (19-41); Mean Corp Hgb Conc 32.3 g/gl (32-36); Mean Corpuscular Hgb 27.6 pg (27.0-32.0); Mean Corpuscular Volume 85.5 fL (81-99); Mean Platelet Vol. 10.1 fl (6.2-12.0); Monocyte% 11.2 % (0-10); Neutrophil # 10.07 X10^3/uL (2.7-7.7); Neutrophil % 70.3 % (47-70); POSITIVE COUNT NO; POSITIVE DIFFERENTIAL YES; POSITIVE MORPHOLOGY YES; Platelet Count 327 K/mm3 (150-450); RBC Distribution Width CV 13.2 % (11.6-14.6); RBC Distribution Width SD 41.1 fl (35.1-43.9); Red Blood Count 5.04 M/mm3 (4.2-5.4); White Blood Count 14.3 K/mm3 (4.4-11.0)
[2018-06-03 06:21] VITALS: BP 179/78; PULSE 79; RESP 10; O2SAT 95
[2018-06-03 06:42] LABS: Differential Comment SCAN
--- NOTE | 2018-06-03 06:46 | ED.VISSUMM ---
- ER Visit Summary Date of Service: 06/03/18 Chief Complaint: [] History of Present Illness: The patient is a 73 F [] Physical Examination: [] Test Results: [] Emergency Department Course and Treatment: [] Treatment Plan: [] Disposition: [] Impression: [] This note was generated with [employer] dictation software. It may contain incorrect words, spelling, and punctuation that were not noted in review of the chart prior to signing ED Disposition - Plan for ED Patient: Disposition: Home or Assisted Living Diagnosis: Hypertension Instructions: ED Headache Tension, ED HTN Established Referrals: Dilan Valle MD [Primary Care Provider] -
[2018-06-03 06:47] VITALS: BP 161/72; PULSE 78; RESP 18; O2SAT 98
[2018-06-04 13:26] LABS: Pathologist Review Reviewed
== END 2018-06-03 06:54 | disposition home or self-care (01) ==
PROVIDERS: Emergency Provider Emergency Medicine; Family Provider Family Medicine; PCP Family Medicine
DX: G44.209 Tension-type headache, unspecified, not intractable (principal); I10 Essential (primary) hypertension; E66.9 Obesity, unspecified; I25.10 Atherosclerotic heart disease of native coronary artery without angina pectoris; E03.9 Hypothyroidism, unspecified; Z79.82 Long term (current) use of aspirin; Z79.02 Long term (current) use of antithrombotics/antiplatelets; Z79.899 Other long term (current) drug therapy
CPT/HCPCS: 80048; 81001; 84484; 85025; 93005; 96374; 99285; A4216

== ENCOUNTER → 2018-08-09 | Outpatient (CLI) | payer MEDICARE, SELFPAY ==
[2018-05-23 11:56] VITALS: BMI 35.6
[2018-07-31 12:44] VITALS: BMI 35.4
[2018-08-09 09:26] LABS: Hematocrit 41.5 % (37-47); Hemoglobin 13.3 g/dl (12.0-15.0); Mean Corpuscular Hgb 27.7 pg (27.0-32.0); Mean Corpuscular Volume 86.3 fL (81-99); Mean Platelet Vol. 9.7 fl (6.2-12.0); Platelet Count 252 K/mm3 (150-450); RBC Distribution Width CV 14.3 % (11.6-14.6); RBC Distribution Width SD 44.9 fl (35.1-43.9); Red Blood Count 4.81 M/mm3 (4.2-5.4); White Blood Count 10.2 K/mm3 (4.4-11.0)
[2018-08-09 09:27] LABS: Scan Indicated on CBC? Y/N NO
[2018-08-09 09:30] LABS: Prothrombin Time (Protime)PT. 13.3 SECONDS (11.7-14.9)
[2018-08-09 09:31] LABS: Partial Thromboplast Time 30.1 Seconds (24.1-36.2)
[2018-08-09 09:48] LABS: BUN 17 mg/dL (7-18); Creatinine, Serum 0.87 mg/dL (0.55-1.02); Glucose 176 mg/dL (74-106)
[2018-08-09 09:49] LABS: Anion Gap 7 (5-15); BUN/Creat Ratio 19.5 RATIO (10-20); Calcium,Total 9.2 mg/dL (8.5-10.1); Chloride 107 mmol/L (98-107); EST Glomerular Filtration Rate 68 mL/min (>60); Est Glom Filt Rate - Afr Amer 82 mL/min (>60); Potassium 3.8 mmol/L (3.5-5.1); Sodium Level 142 mmol/L (136-145)
== END | disposition home or self-care (01) ==
LOC: LAB 08:53
PROVIDERS: Family Provider Family Medicine; PCP Family Medicine; Referring Provider Internal Medicine Cardiovascular Disease; Visit Provider Internal Medicine Cardiovascular Disease
DX: I25.10 Atherosclerotic heart disease of native coronary artery without angina pectoris (principal); Z95.5 Presence of coronary angioplasty implant and graft; I10 Essential (primary) hypertension; R07.9 Chest pain, unspecified
CPT/HCPCS: 36415; 80048; 85027; 85610; 85730

== ENCOUNTER 2018-08-14 09:50 | Day surgery (SDC) | payer MEDICARE, SELFPAY ==
[2018-05-23 11:56] VITALS: BMI 35.6
[2018-07-17 10:30] VITALS: BMI 35.7
[2018-07-31 12:44] VITALS: BMI 35.4
--- NOTE | 2018-07-31 14:48 | HP_ITS ---
HPI HPI History of Present Illness Surgical H&P: Yes Details: Pleasant 73-year-old lady who had presented to the hospital in April of this year with chest heaviness and shortness of breath. She had previously had a stress test we did not demonstrate any evidence of ischemia nonetheless she underwent a cardiac catheterization with demonstrated severe two-vessel disease involving the proximal and mid left anterior descending artery and a large dominant right coronary artery with the proximal 80% stenosis. She was referred for and underwent angioplasty and stenting with a drug-eluting stent to the distal LAD with a 2.25 x 12 mm Promus Synergy stent, 2.5?16 Promus stents to the mid LAD distal to the second diagonal branch, a 2.25?8 Promus Synergy stent to the proximal diagonal vessel, and a 3.0?12 Promus Synergy stent to the mid left anterior descending artery. She was supposed to be scheduled for elective angioplasty of the right coronary artery however she did develop a viral bronchitis and this led to a postponement and delay. She has however done well denying any chest pain or shortness breath or paroxysmal nocturnal dyspnea pedal edema she is been compliant with her medications. She returns today for a follow-up visit. She has had no neck arm or jaw discomfort suggest angina. Her physical exam here today demonstrates clear lung ybarra regular rate and rhythm no pedal edema blood pressure is under good control her electrocardiogram demonstrates normal sinus rhythm with a rate of 71 bpm and no acute changes. Intake Vital Signs 07/31/18 Height 5 ft 7 in 07/31/18 Weight: 226 lb 07/31/18 Body Mass Index (BMI) 35.4 07/31/18 Blood Pressure 152/78 H 07/31/18 Respiratory Rate 16 07/31/18 Pulse Rate 72 07/31/18 Pulse Ox 95 Intake Visit Reasons: stented 05-23, needs another Allergies bee venom protein (honey bee) Allergy (Verified 07/31/18 12:44) Anaphylaxis Medications gabapentin 300 mg capsule 300 mg PO DAILY 12/24/17 [History Confirmed 07/31/18] levothyroxine 137 mcg tablet 137 mcg PO DAILY 12/24/17 [History Confirmed 07/31/18] Aspirin [Aspirin, Baby] 81 mg PO DAILY@0800 #30 tab.chew 05/22/18 [Rx Confirmed 07/31/18] Nitroglycerin [Nitrostat] 0.4 mg SL PRN PRN #30 tab.subl 05/22/18 [Rx Confirmed 07/31/18] Atorvastatin Calcium [Lipitor] 80 mg PO QHS #90 tab 05/24/18 [Rx Confirmed 07/31/18] atenolol 100 mg tablet 100 mg PO DAILY 90 Days #90 tab 07/31/18 [History Confirmed 07/31/18] clopidogrel 75 mg tablet 75 mg PO DAILY #90 tab 07/31/18 [Rx Confirmed 07/31/18] hydrochlorothiazide 12.5 mg capsule 12.5 mg PO DAILY #90 cap 07/31/18 [Rx Confirmed 07/31/18] losartan 100 mg tablet 100 mg PO DAILY #90 tab 07/31/18 [Rx Confirmed 07/31/18] PFSH Medical History Dyslipidemia (high LDL; low HDL) (Chronic) Essential (primary) hypertension (Chronic) Atherosclerosis of coronary artery of [place] heart without angina pectoris (Chronic) Benign neoplasm of brain (Chronic) Herpes zoster (Chronic) Bilateral headaches (Chronic) Environmental allergies (Chronic) Facet arthropathy, lumbar (Chronic) Hyperthyroidism (Chronic) Obesity (Chronic) Surgical History H/O right coronary artery stent placement (Resolved 05/23/18) History of abdominal surgery (Resolved) History of hysterectomy (Resolved) History of partial thyroidectomy (Resolved) Hx of cholecystectomy (Resolved) Family History Father Heart disease Diabetes Brother Diabetes Other Hypertension Social History Smoking Status: Never smoker alcohol intake: never substance use type: does not use what type of physical activity do you participate in: none ROS Const Const: Negative for fatigue, weakness, headache(s), frequent falls, difficulty sleeping or excessive sweating Eyes Eyes: Negative for loss of peripheral vision, transient loss of vision, blurry vision, double vision or tunnel vision ENT ENT: Negative for headache(s), dizziness, Nosebleed/epistaxis or balance problems Cardio Chest Pain: No Palpitations: No Edema: None Muscle aches with walking: None Resp Respiratory: Negative for SOB with activity, SOB at rest, SOB orthopnea\SOB lying down, Cough or paroxysmal nocturnal dyspnea GI GI: Negative nausea, vomiting, heartburn or black,tarry stools : Negative for hematuria Musc Musc: Negative for muscle aches/ myalgia, muscle weakness, joint pain or balance problems Skin Skin: Negative non-healing lesions, rash or unusual bruising Neuro Neuro: Negative for dizziness, lightheadedness, near syncope, syncope, orthostatic symptoms, frequent falls, headache(s), weakness, blurry vision, double vision or lack of coordination Aman Hematologic/Lymphatic: Negative for easy bleeding or easy bruising Endo Endo: Negative for fatigue, excessive sweating or increased thirst/drinking Psych Psych: Negative for anxiety or depression Allergy Allergy/Immunology: Negative for hives, Negative for rash Cardiology Exam Const Appearance: cooperative, healthy appearing, no acute distress, well developed and well groomed Nutritional Appearance: average body habitus and well nourished Orientation: alert, awake and oriented x3 Head Head: normal to inspection, normocephalic and atraumatic Ears: hearing grossly normal bilaterally and external ears normal Nose: external nose normal, nares normal, nasal mucous membranes and turbinates normal, septum normal, no nasal discharge Face and Sinus: face symmetric Mouth: oral mucosae normal, tongue normal, oropharynx normal and moist mucous membranes Teeth and gingiva: dentition normal Throat: posterior oropharynx normal, tonsils normal and uvula midline Eyes General: appearance normal, both eyes and all related structures Eyelids: eyelids normal Conjunctivae: conjunctivae normal Pupils: PERRL, normal by confrontation and accommodation normal EOM: EOM intact bilaterally Neck Neck: normal visual inspection, trachea midline and no JVD JVD: +5 Carotids: normal carotid upstroke and bounding pulses Chest Chest inspection: normal inspection of the chest, symmetric chest movement and normal respiratory effort Auscultation: Bilateral: Clear to Auscultation Cardio Palpation: normal PMI Rate: regular rate Rhythm: regular rhythm Heart sounds: S1 normal, S2 normal and normal, physiologic split S2; negative rub, gallop or murmur GI GI: normal to inspection, soft, no hepatosplenomegaly and bowel sounds present Neuro General: alert, awake, oriented x3, gait normal, moves all extremities and no focal sensory deficit Skin Skin: no rashes or lesions noted Extremities Pulses: Normal: Right Femoral Pulse, Left Femoral Pulse, Right Dorsalis Pedis Pulse, Left Dorsalis Pedis Pulse, Right Posterior Tibial Pulse, Left Posterior Tibial Pulse, Right Radial Pulse, Left Radial Pulse Lower Extremity Edema: None: Bilateral Musculoskel Musculoskeletal: No joint tenderness Psych Psychological: normal affect Assessment & Plan 1. Atherosclerosis of coronary artery of [place] heart without angina pectoris I25.10 [id number] LAD with a 2.25 x 12 mm Promus Synergy, DAMION-mid LAD distal to DIAG#2 with a 2.5 x 16 mm Promus Synergy, DAMION-mid LAD with a 3.0 x 12 mm Promus Synergy, DAMION proximal DIAG#2 with a 2.25 x 8 mm Promus Synergy 05/23/2018 Plan She is status post angioplasty and stenting of the left anterior descending artery. She does have residual disease in the right coronary artery for which she is to be scheduled to undergo the above. In the meantime she will continue on the aspirin and statin and clopidogrel. The risk benefits alternatives have been explained to her she understands and agrees to proceed. Orders Orders: 12 Lead EKG performed by [facility] Today 2. Essential (primary) hypertension I10 Plan Her blood pressure is elevated today I would recommend that we increase her losartan to 100 mg a day. She will continue the atenolol at the same dose as well as the hydrochlorothiazide. Orders Orders: 12 Lead EKG performed by [facility] Today 3. Dyslipidemia (high LDL; low HDL) E78.5 Plan She does have a history of dyslipidemia and is on high intensity statin. This will be continued. Her most recent lipid profile demonstrated a total cholesterol 127, HDL of 28 and LDL of 56. These numbers are excellent and she will continue on the same medications. 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) Coding Level of Care Code Off vis,est,level 4 Diagnoses Atherosclerosis of coronary artery of [place] heart without angina pectoris I25.10 Essential (primary) hypertension I10 Dyslipidemia (high LDL; low HDL) E78.5 Coding Level of Care Code Off vis,est,level 4 Diagnoses Atherosclerosis of coronary artery of [place] heart without angina pectoris I25.10 Essential (primary) hypertension I10 Dyslipidemia (high LDL; low HDL) E78.5 Supplemental Info Supplemental Information Labs LDL Cholesterol 131 mg/dL (0-130) H 05/24/18 HDL Cholesterol 31 mg/dL (40-) L 05/24/18 Triglycerides 182 mg/dL (-199) 05/24/18 VLDL Cholesterol 36 mg/dL (5-40) 05/24/18 Diagnostics Electrocardiogram 07/31/18 Stress Test Nuclear Medicine 05/22/18 Stress Test 05/22/18 Cardiac Catheterization 05/23/18 Chest X-Ray 05/21/18 07/31/18 1448 <Electronically signed by Luciano Man MD> Date Luciano Man MD
[2018-08-13 10:21] VITALS: BMI 35.4
[2018-08-14] VITALS (25 sets, daily range): BP systolic 118–165; BP diastolic 44–78; PULSE 68–82; RESP 8–22; TEMP 36.5–37; O2SAT 94–99; BMI 34.8
--- NOTE | 2018-08-14 14:33 | CL.I_ITS ---
Patient Name: MATEO BEDOYA V Study Date: 08/14/2018 Performing: Jim Ward MD Ht: 66.92 inches 170 cm : 1945 Wt: 227.08 lbs 103 kg Age: 73 Gender: female BSA: 2.13 PROCEDURE(S) PERFORMED [id number] W OR WO PTCA, SINGLE CORONARY ARTERY CLINICAL PROFILE AND CO-MORBIDITIES Indications: Stable Known CAD, Stable Known CAD, Stable Known CAD Heart Failure: None Stress/Imaging Date: 05/22/2018 Stress Test with SPECT MPI: Negative Angina Classification Anginal Classification w/in 2 Weeks: CCS I CAD Presentations: Unstable angina. Other: Dyspnea on exertion. Comorbidities/Risk Factors: Hypertension Dyslipidemia Prior PCI CONCLUSIONS Successful PTCA/DAMION mid RCA with a 4.0 x 32 Promus Synergy stent, post dilated throughout with a 4.0 and 4.5 x 12 NC Balloon; 85%-->0%, no dissection. Pt had identical chest pain symptoms with stent deployment. RECOMMENDATIONS Highly recommend quitting all tobacco products Follow up with primary loom inspector Risk factor modification ASA Indefinitley Plavix for at least 12 months Routine post interventional care Refer for Outpatient Cardiac Rehab Manual sheath removal per protocol Follow up with Dr. Donovan Soto [facility] in [facility]. DESCRIPTION OF PROCEDURE The patient arrived to the procedure lab. The risks and benefits of the procedure as well as a full d escription of our services here and current unavailability of surgical backup were fully explained to the patient and/or their significant other prior to the catheterization. The Timeout was completed, verifying the correct patient and procedure. The patient's procedural site was prepped and draped in the usual fashion. Local anesthetic was given subcutaneously to right groin region with Lidocaine 2%. Using a modified Seldinger technique, arterial access was obtained via the right femoral artery, a 6 Fr 45cm sheath was inserted.. HS 2 Guide catheter was inserted and engaged into the RCA. BMW Guide wire was advanced to the RCA . 2.50X12 EMERGE Balloon catheter was inserted. Balloon catheter was advanced across lesion in the ri ght coronary, mid. PTCA balloon inflated at 6 atms for 10 secs. 4.0X32 SYNERGY Drug Eluting stent was inserted. Drug Eluting stent was advanced across the lesion in the right coronary, mid. Angiogram pe rformed post stent deployment. 4.0X12 NC EMERGE Balloon catheter was inserted post stent. 4.50X12 NC EMERGE Balloon catheter was inserted post stent. Arterial sheath was exchanged for a 6 Fr 11CM Sheath . Contrast was injected through the sheath and the Right Iliac and Femoral artery were assessed for p ossible closure device. The arterial sheath was pulled and a Mynx closure device was deployed for hem ostasis INTERVENTION INFORMATION LESION SITE: RCA (Mid) Lesion Complexity: High/C, lesion at bifurcation: No, thrombus present: No, lesion length: 32 mm, cul prit lesion: Yes Pre Stenosis: 85 % Pre intervention CARLENE flow: 3 PROCEDURE: Drug Eluting Stent with pre and post dilatation Post Stenosis: 0 % Post intervention CARLENE flow: 3 Lesion Devices: Gao .014 BMW Cary Straight 190cm RRT Globaltronic 6 Fr HSII 100cm Guide Catheter Justin Sci EMERGE MR 2.50x12 BALLOON Justin Sci Synergy MR DAMION 4.00x32 Justin Sci NC EMERGE MR 4.00x12 BALLOON Justin Sci NC EMERGE MR 4.50x12 BALLOON COMPLICATIONS No Complications PROCEDURE MEDICATIONS Versed 1 mg IV Oxygen: 2 L/min via nasal cannula Heparin 6000 unit(s) IV 08/14/2018 13:47:31 Nitro 200 mcg IC 08/14/2018 13:49:01 Nitro 200 mcg IC 08/14/2018 13:49:01 Nitro 400 mcg IC 08/14/2018 14:12:20 Nitro glycerin 25mg / 250ml D5W @ 5 mcg/min IV started 08/14/2018 14:12:47 Nitro 200 mcg IA 08/14/2018 14:13:50 Nitro glycerin 25mg / 250ml D5W @ 15 mcg/min (increased rate) 08/14/2018 14:17:26 Nitro glycerin 25mg / 250ml D5W @ 20 mcg/min (increased rate) 08/14/2018 14:27:00 Nitro glycerin 25mg / 250ml D5W @ 25 mcg/min (increased rate) 08/14/2018 14:31:29 SUMMARY OF HEMODYNAMIC DATA Time AIR REST ECG 10:11:52 ECG 13:19:04 AO 202/78 (127) SA 13:47:45 AO 163/72 (108) 14:03:14 AO 167/46 (102) 14:09:25 AO 148/65 (95) 14:11:34 Signed By Jim Ward MD On 08/14/2018 14:32:18 Jim Ward MD
[2018-08-14] MEDS: 0.9% Normal Saline 1,000 ML 150 ML IV (15:00)
--- NOTE | 2018-08-14 15:16 | EKG12_ITS ---
Test Reason : Blood Pressure : / mmHG Vent. Rate : 071 BPM Atrial Rate : 071 BPM P-R Int : 192 ms QRS Dur : 096 ms QT Int : 406 ms P-R-T Axes : 048 028 042 degrees QTc Int : 441 ms Normal sinus rhythm Normal ECG When compared with ECG of 03-JUN-2018 05:27, No significant change was found Confirmed by BAILEE PARHAM ([id number]), loan expeditor JAKI MARSHALL ([id number]) on 08/21/2018 12:57:57 PM Referred By: Jim Ward Confirmed By:LAKEISHA PARHAM
[2018-08-14] MEDS: Gabapentin 300 MG Capsule PO (16:50)
[2018-08-14] MEDS: hydroCHLOROthiazide 12.5mg 12.5 MG PO (16:50)
[2018-08-14] MEDS: Atorvastatin Calcium 80 MG Tablet PO (21:52)
[2018-08-15] VITALS (13 sets, daily range): BP systolic 124–170; BP diastolic 35–54; PULSE 73–90; RESP 14–22; TEMP 36.6–36.7; O2SAT 93–98; BMI 34.7
[2018-08-15] MEDS: Levothyroxine 137 MCG Tablet PO (05:12)
[2018-08-15 05:20] LABS: Hematocrit 36.4 % (37-47); Hemoglobin 11.9 g/dl (12.0-15.0); Mean Corp Hgb Conc 32.7 g/gl (32-36); Mean Corpuscular Hgb 27.8 pg (27.0-32.0); Mean Platelet Vol. 9.7 fl (6.2-12.0); Platelet Count 227 K/mm3 (150-450); RBC Distribution Width CV 14.2 % (11.6-14.6); RBC Distribution Width SD 43.1 fl (35.1-43.9); Red Blood Count 4.28 M/mm3 (4.2-5.4); White Blood Count 12.8 K/mm3 (4.4-11.0)
[2018-08-15 05:26] LABS: Scan Indicated on CBC? Y/N NO
[2018-08-15 05:36] LABS: Anion Gap 7 (5-15); BUN 14 mg/dL (7-18); BUN/Creat Ratio 16.9 RATIO (10-20); Calcium,Total 8.8 mg/dL (8.5-10.1); Chloride 108 mmol/L (98-107); Cholesterol 109 mg/dL (200); Creatinine, Serum 0.83 mg/dL (0.55-1.02); EST Glomerular Filtration Rate 72 mL/min (>60); Est Glom Filt Rate - Afr Amer 87 mL/min (>60); Estimated Creatinine Clearance 60.46 ml/min; Glucose 166 mg/dL (74-106); High Density Lipoprotein 31 mg/dL; Potassium 3.6 mmol/L (3.5-5.1); Sodium Level 142 mmol/L (136-145); Triglycerides 182 mg/dL; Very Low Density Lipoprotein 36 mg/dL (5-40)
--- NOTE | 2018-08-15 07:18 | PCM.DC.CCA ---
Discharge Diet: Low fat/ Low Cholesterol Discharge Activity: Return to Normal Activity May shower in (days): 1 - No tub baths for 5 days May resume sexual activity in: 1-2 weeks Lifting Restrictions: Do not lift anything greater than 10 pounds for 3 days Call your doctor if your incision/area has: Continuous Slow Oozing, Sudden Increased Bleeding, Increased Pain/ Swelling, Increased Redness, Foul Smelling Discharge, Swelling at the incision site Call your doctor if you observe: Fever of 101 or Higher, Shortness of breath, Chest pain Remove Dressing in (days):: 1 Cleanse incision/area with: Soap & Water Additional Instructions: You will continue with aspirin therapy. He will remain on Plavix therapy for at least one year. If anyone asks you to stop your Plavix please contact the [facility] at [phone]. A litigation legal secretary from the [facility] will contact you for a follow-up in approximately 2 weeks from leaving the hospital. At this time, you will also keep your 10/04/[address] Man. If you have any questions or concerns please call the [facility]. Allergies/Adverse Reactions: Allergies bee venom protein (honey bee) Allergy (Verified 07/31/18 12:44) Anaphylaxis aspirin [From Percodan] Adverse Reaction (Verified 07/31/18 19:33) Unknown codeine Adverse Reaction (Verified 07/31/18 19:33) Unknown morphine Adverse Reaction (Verified 07/31/18 19:33) Unknown oxycodone [From Percodan] Adverse Reaction (Verified 07/31/18 19:33) Unknown Medications to take at Discharge gabapentin 300 mg capsule 300 mg PO BID 12/24/17 levothyroxine 137 mcg tablet 137 mcg PO DAILY 12/24/17 Aspirin [Aspirin, Baby] 81 mg PO DAILY@0800 #30 tab.chew 05/22/18 Nitroglycerin [Nitrostat] 0.4 mg SL PRN PRN #30 tab.subl 05/22/18 Atorvastatin Calcium [Lipitor] 80 mg PO QHS #90 tab 05/24/18 atenolol 100 mg tablet 100 mg PO BID 90 Days #90 tab 07/31/18 clopidogrel 75 mg tablet 75 mg PO DAILY #90 tab 07/31/18 hydrochlorothiazide 12.5 mg capsule 12.5 mg PO DAILY #90 cap 07/31/18 losartan 100 mg tablet 100 mg PO DAILY #90 tab 07/31/18 Primary Care Physician: Dilan Valle MD [Primary Care Provider] - Test Results: Test results from this visit will be discussed in further detail at your follow-up appointment, if applicable. Please Follow Up With: [facility] will call Proposed Discharge Date: 08/15/18 Cardiac Rehabilitation Info Cardiac Rehabilitation Program Information: Cardiac Rehabilitation is important for patients like you who are recovering from a heart problem. Cardiac rehabilitation programs are recognized as integral to the continued care of the patient with coronary heart disease. The cardiac rehabilitation program is designed to optimize a patient's physical, psychological, and social functioning. Health primary care nurse practitioner work in cardiac rehabilitation programs and assist you with getting the treatments you need to get stronger and healthier - like exercise, healthy eating habits, and medications. Cardiac rehabilitation has been show to help people with heart problems live longer and have better life enjoyment than people who do not go to cardiac rehabilitation. Please contact the Cardiac Rehabilitation Program at [facility] at in two weeks if you have not heard from them.
--- NOTE | 2018-08-15 07:23 | DCINST_ITS ---
Discharge Diet: Low fat/ Low Cholesterol Discharge Activity: Return to Normal Activity May shower in (days): 1 - No tub baths for 5 days May resume sexual activity in: 1-2 weeks Lifting Restrictions: Do not lift anything greater than 10 pounds for 3 days Call your doctor if your incision/area has: Continuous Slow Oozing, Sudden Increased Bleeding, Increased Pain/ Swelling, Increased Redness, Foul Smelling Discharge, Swelling at the incision site Call your doctor if you observe: Fever of 101 or Higher, Shortness of breath, Chest pain Remove Dressing in (days):: 1 Cleanse incision/area with: Soap & Water Additional Instructions: You will continue with aspirin therapy. He will remain on Plavix therapy for at least one year. If anyone asks you to stop your Plavix please contact the [facility] at [phone]. A aligner barrel and receiver from the [facility] will contact you for a follow-up in approximately 2 weeks from leaving the hospital. At this time, you will also keep your 10/04/[address] Man. If you have any questions or concerns please call the [facility] Offic e. Allergies/Adverse Reactions: Allergies bee venom protein (honey bee) Allergy (Verified 07/31/18 12:44) Anaphylaxis aspirin [From Percodan] Adverse Reaction (Verified 07/31/18 19:33) Unknown codeine Adverse Reaction (Verified 07/31/18 19:33) Unknown morphine Adverse Reaction (Verified 07/31/18 19:33) Unknown oxycodone [From Percodan] Adverse Reaction (Verified 07/31/18 19:33) Unknown Medications to take at Discharge gabapentin 300 mg capsule 300 mg PO BID 12/24/17 levothyroxine 137 mcg tablet 137 mcg PO DAILY 12/24/17 Aspirin [Aspirin, Baby] 81 mg PO DAILY@0800 #30 tab.chew 05/22/18 Nitroglycerin [Nitrostat] 0.4 mg SL PRN PRN #30 tab.subl 05/22/18 Atorvastatin Calcium [Lipitor] 80 mg PO QHS #90 tab 05/24/18 atenolol 100 mg tablet 100 mg PO BID 90 Days #90 tab 07/31/18 clopidogrel 75 mg tablet 75 mg PO DAILY #90 tab 07/31/18 hydrochlorothiazide 12.5 mg capsule 12.5 mg PO DAILY #90 cap 07/31/18 losartan 100 mg tablet 100 mg PO DAILY #90 tab 07/31/18 Primary Care Physician: Dilan Valle MD [Primary Care Provider] - Test Results: Test results from this visit will be discussed in further detail at your follow- up appointment, if applicable. Please Follow Up With: [facility] will call Proposed Discharge Date: 08/15/18 Cardiac Rehabilitation Info Cardiac Rehabilitation Program Information: Cardiac Rehabilitation is important for patients like you who are recovering from a heart problem. Cardiac rehabilitation programs are recognized as integral to the continued care of the patient with coronary heart disease. The cardiac rehabilitation program is designed to optimize a patient's physical, psychological, and social functioning. Health live in caregiver work in cardiac rehabilitation programs and assist you with getting the treatments you need to get stronger and healthier - like exercise, healthy eating habits, and medications. Cardiac rehabilitation has been show to help people with heart problems live longer and have better life enjoyment than people who do not go to cardiac rehabilitation. Please contact the Cardiac Rehabilitation Program at [facility] at in two weeks if you have not heard from them.
--- NOTE | 2018-08-15 07:27 | PCM.PN.CARD ---
Subjectve: patient seen and evaluated. doing well Objective: Vital Signs Temp Pulse Resp BP Pulse Ox 97.9 F 88 18 156/51 H 94 08/15/18 05:00 08/15/18 07:00 08/15/18 07:00 08/15/18 07:00 08/15/18 07:00 Oxygen Flow Rate (L/min) 1 Oxygen Delivery Method Room Air Weight: 225 lb 15.581 oz Body Mass Index (BMI) 34.8 Intake and Output for Last 24 Hours 08/13/18 08/14/18 08/15/18 23:59 23:59 23:59 Intake Total 2074.5 / 2074.5 120 / 120 Output Total 600 / 600 400 / 400 Balance 1474.5 / 1474.5 -280 / -280 General: Awake, Alert, Oriented x 3 HEENT: PERRL, EOMI, Sclera Non Icteric Neck: Supple, Good ROM, No Lymph Node Enlargement Lungs: Clear to auscultation Cardiovascular: Regular Rhythm, Normal S1, Normal S2, No Murmurs, No Rubs, No Gallops Vascular: No Carotid Bruits, Normal Femoral Pulses, Normal Radial Pulses, Normal Dorsalis Pedal Pulse, Normal Posterior Tibial Pulses Abdomen: Bowel Sounds Present, Soft, Non Tender, No HSM, No Organomegaly Extremities: No Cyanosis, No Clubbing, No edema Neurological: No Focal Motor or Sensory Deficit Psych/Mental Status: Appropriate 08/15/18 05:10: WBC 12.8 H, RBC 4.28, Hgb 11.9 L, Hct 36.4 L, MCV 85.0, MCH 27.8, MCHC 32.7, RDW 14.2, RDW Differential 43.1, Plt Count 227, MPV 9.7 08/15/18 05:10: Sodium 142, Potassium 3.6, Chloride 108 H, Carbon Dioxide 27.0, Anion Gap 7, BUN 14, Creatinine 0.83, Est GFR (MDRD) Af Amer 87, Est GFR (MDRD) Non-Af 72, BUN/Creatinine Ratio 16.9, Glucose 166 H, Calcium 8.8, Triglycerides 182, Cholesterol 109, LDL Cholesterol 42, VLDL Cholesterol 36, HDL Cholesterol 31 L Rhythm: EKG: ECHO: Stress Test: Cardiac Cath: PCI: CT Surgery: Holter monitor: EPS: PPM: CXR: Chest CT Scan: Medical Necessity - Tobacco Use Smoking Status: Never smoker Assessment/Plan 1. S/P PCI Doing well this am . No groin issues. Will follow as outpatient Thank you for allowing me to participate in the care of your patient. Please don't hesitate to call if any issues arise
[2018-08-15] MEDS: Atenolol 100 MG Tablet PO (08:18)
[2018-08-15] MEDS: hydroCHLOROthiazide 12.5mg 12.5 MG PO (08:18)
[2018-08-15] MEDS: Gabapentin 300 MG Capsule PO (08:19)
[2018-08-15] MEDS: Clopidogrel Bisulfate 75 MG Tablet PO (08:19)
[2018-08-15] MEDS: Losartan Potassium 100 MG Tablet PO (08:19)
[2018-08-15] MEDS: Aspirin 81 MG TAB.CHEW PO (08:19)
--- NOTE | 2018-08-15 10:00 | EKG12_ITS ---
Test Reason : AM Blood Pressure : / mmHG Vent. Rate : 085 BPM Atrial Rate : 085 BPM P-R Int : 176 ms QRS Dur : 098 ms QT Int : 378 ms P-R-T Axes : 067 011 074 degrees QTc Int : 449 ms Normal sinus rhythm Normal ECG When compared with ECG of 14-AUG-2018 14:46, MANUAL COMPARISON REQUIRED, DATA IS UNCONFIRMED Confirmed by BAILEE PARHAM ([id number]), supervising editor news reel JAKI MARSHALL ([id number]) on 08/21/2018 12:56:31 PM Referred By: Jim Ward Confirmed By:LAKEISHA PARHAM
--- NOTE | 2018-08-15 10:49 | CRPHASE1 ---
Patient Communication PHII Cardiac Rehab Discussed with Patient:: Yes Guide to Cardiac Rehab Given to Patient:: Yes Cardiac Rehab Facility Choice List Given to Patient:: Yes - [facility] Choice Program [facility] CR PHII:: Communication Given to CR, Refer to [facility] Refer Phase II Cardiac Rehab:: Yes Sessions:: 36 sessions - 3 days/wk, 12 weeks Risk Factors/Lifestyle Smoking Status: Never smoker Hx Hypertension: Yes Hx Diabetes Mellitus Type 2: No Hx Dyslipidemia: Yes Hx Obesity: Yes Height: 5 ft 7.5 in Weight:: 225 lb BMI: 34.7 Post-Menopausal: Yes Stress: Work-related - Has decreased this stressor significantly Risk Factor for Sedentary Lifestyle: Moderate Risk Family History: Family History (Last Reviewed 07/31/18 @ 14:39 by Luciano Man MD) Father Heart disease Diabetes Brother Diabetes Other Hypertension Family History: Diabetes, Heart Disease, Hypertension Past Cardiac Illness: Previous PCI w/Stent Laboratory Values: Cardiac Rehab Phase I Labs Triglycerides 182 mg/dL (-199) 08/15/18 05:10 Cholesterol 109 mg/dL (200) 08/15/18 05:10 LDL Cholesterol 42 mg/dL (0-130) 08/15/18 05:10 HDL Cholesterol 31 mg/dL (40-) L 08/15/18 05:10 Phase I Education Given On:: [place], Nutrition, Antiplatelet medication, CHF, Smoking cessation Issues Affecting Care:: None Knowledge of Condition:: Yes Learning Preferences: Verbal, Written, Audio/Visual, Demonstration Medical/Surgical History Hypertension:: Yes Dyslipidemia:: Yes Discharge/Home/Social Eval Marital Status: Patient Lives With:: spouse Cardiac Rehabilitation Info Cardiac Rehabilitation Program Information: Cardiac Rehabilitation is important for patients like you who are recovering from a heart problem. Cardiac rehabilitation programs are recognized as integral to the continued care of the patient with coronary heart disease. The cardiac rehabilitation program is designed to optimize a patient's physical, psychological, and social functioning. Health day care worker work in cardiac rehabilitation programs and assist you with getting the treatments you need to get stronger and healthier - like exercise, healthy eating habits, and medications. Cardiac rehabilitation has been show to help people with heart problems live longer and have better life enjoyment than people who do not go to cardiac rehabilitation. Please contact the Cardiac Rehabilitation Program at [facility] at in two weeks if you have not heard from them.
--- NOTE | 2018-08-15 10:53 | CRPHASE1_ITS ---
Patient Communication PHII Cardiac Rehab Discussed with Patient:: Yes Guide to Cardiac Rehab Given to Patient:: Yes Cardiac Rehab Facility Choice List Given to Patient:: Yes - [facility] Choice Program [facility] CR PHII:: Communication Given to CR, Refer to [facility] Refer Phase II Cardiac Rehab:: Yes Sessions:: 36 sessions - 3 days/wk, 12 weeks Risk Factors/Lifestyle Smoking Status: Never smoker Hx Hypertension: Yes Hx Diabetes Mellitus Type 2: No Hx Dyslipidemia: Yes Hx Obesity: Yes Height: 5 ft 7.5 in Weight:: 225 lb BMI: 34.7 Post-Menopausal: Yes Stress: Work-related - Has decreased this stressor significantly Risk Factor for Sedentary Lifestyle: Moderate Risk Family History: Family History (Last Reviewed 07/31/18 @ 14:39 by Luciano Man MD) Father Heart disease Diabetes Brother Diabetes Other Hypertension Family History: Diabetes, Heart Disease, Hypertension Past Cardiac Illness: Previous PCI w/Stent Laboratory Values: Cardiac Rehab Phase I Labs Triglycerides 182 mg/dL (-199) 08/15/18 05:10 Cholesterol 109 mg/dL (200) 08/15/18 05:10 LDL Cholesterol 42 mg/dL (0-130) 08/15/18 05:10 HDL Cholesterol 31 mg/dL (40-) L 08/15/18 05:10 Phase I Education Given On:: [place], Nutrition, Antiplatelet medication, CHF, Smoking cessation Issues Affecting Care:: None Knowledge of Condition:: Yes Learning Preferences: Verbal, Written, Audio/Visual, Demonstration Medical/Surgical History Hypertension:: Yes Dyslipidemia:: Yes Discharge/Home/Social Eval Marital Status: Patient Lives With:: spouse Cardiac Rehabilitation Info Cardiac Rehabilitation Program Information: Cardiac Rehabilitation is important for patients like you who are recovering from a heart problem. Cardiac rehabilitation programs are recognized as integral to the continued care of the patient with coronary heart disease. The cardiac rehabilitation program is designed to optimize a patient's physical, psychological, and social functioning. Health regular senior care provider work in cardiac rehabilitation programs and assist you with getting the treatments you need to get stronger and healthier - like exercise, healthy eating habits, and medications. Cardiac rehabilitation has been show to help people with heart problems live longer and have better life enjoyment than people who do not go to cardiac rehabilitation. Please contact the Cardiac Rehabilitation Program at [facility] at in two weeks if you have not heard from them.
--- NOTE | 2018-08-15 10:53 | CRPH1.INSTRU ---
General Education CAD and cardiac anatomy and function:: Patient communicates acknowledgment, Needs reinforcement Explanation of diagnoses and procedures:: Patient communicates acknowledgment, Needs reinforcement Sign/Symptoms of CO:: Patient communicates acknowledgment, Needs reinforcement Antiplatelet therapy: Patient communicates acknowledgment, Needs reinforcement Proper use of NTG-SL: Patient communicates acknowledgment, Needs reinforcement Emergency procedures and activation of EMS: Patient communicates acknowledgment, Needs reinforcement Compliance of all prescribed medications: Patient communicates acknowledgment, Needs reinforcement Smoking Patient Nicotine/Smoking Risk Factors Are:: Never smoked Nicotine/Smoking Response Code:: Not instructed Dyslipidemia Patient Dyslipidemia Risk Factors Are:: Total Cholesterol, Triglycerides, HDL, LDL Recommendations Include:: Lipid profile provided, Reviewed NCEP/ATP guidelines, Therapeutic Lifestyle Change dietary guidelines Dyslipidemia Response Code:: Patient communicates acknowledgment, Needs reinforcement Overweight/Obesity Patient Overweight/Obesity Risk Factors Are:: Obesity - > or = 30 Recommendations Include:: Weight loss of 5-10%, Reduced calorie diet, Exercise 5-7 times/week Overweight/Obesity:: Patient communicates acknowledgment, Needs reinforcement Hypertension Patient Hypertension Risk Factors Are:: No documented hx of HTN Recommendations Include:: Maintain BP <130/85, DASH dietary guidelines, Decrease/maintain normal body weight, Moderation of ETOH Hypertension:: Patient communicates acknowledgment, Needs reinforcement Heart Disease Patient Heart Disease Risk Factors Are:: Family history of heart disease < 65 years old, Previous cardiac event Recommendations Include:: Educated family members of their risk, Educated family members of importance of prevention of heart disease Heart Disease Response Code:: Patient communicates acknowledgment, Needs reinforcement Diabetes Patient Diabetes Risk Factors Are:: No documented hx of diabetes Metabolic Syndrome Patient Metabolic Syndrome Risk Factors Are [3 of 5]:: Waist circumference > 35 [female] or 40 [male], High triglyceride >150, Hypertension, Low HDL <40 [male] or < 50 [female] Recommendations Include:: Reinforce compliance to risk factor modifications, Encouraged follow-up with Primary Care Physician Metabolic Syndrome Response Code:: Patient communicates acknowledgment, Needs reinforcement Sedentary Patient Sedentary Risk Factors Are:: Lack of regular exercise Recommendations Include:: Aerobic exercise 5-7 times/week for 20-30 minutes continuously, Benefits of regular exercise, Discussed home walking program, Monitored Outpatient Cardiac Rehab Sedentary Response Code:: Patient communicates acknowledgment, Needs reinforcement Stress Recommendations Include:: Identification of stressors, and assessment of coping skills, Stress management techniques Stress Response Code:: Patient communicates acknowledgment, Needs reinforcement
--- NOTE | 2018-08-15 10:56 | CRPH1.INST_ITS ---
General Education CAD and cardiac anatomy and function:: Patient communicates acknowledgment, Needs reinforcement Explanation of diagnoses and procedures:: Patient communicates acknowledgment, Needs reinforcement Sign/Symptoms of ND:: Patient communicates acknowledgment, Needs reinforcement Antiplatelet therapy: Patient communicates acknowledgment, Needs reinforcement Proper use of NTG-SL: Patient communicates acknowledgment, Needs reinforcement Emergency procedures and activation of EMS: Patient communicates acknowledgment, Needs reinforcement Compliance of all prescribed medications: Patient communicates acknowledgment, Needs reinforcement Smoking Patient Nicotine/Smoking Risk Factors Are:: Never smoked Nicotine/Smoking Response Code:: Not instructed Dyslipidemia Patient Dyslipidemia Risk Factors Are:: Total Cholesterol, Triglycerides, HDL, LDL Recommendations Include:: Lipid profile provided, Reviewed NCEP/ATP guidelines, Therapeutic Lifestyle Change dietary guidelines Dyslipidemia Response Code:: Patient communicates acknowledgment, Needs reinforcement Overweight/Obesity Patient Overweight/Obesity Risk Factors Are:: Obesity - > or = 30 Recommendations Include:: Weight loss of 5-10%, Reduced calorie diet, Exercise 5-7 times/week Overweight/Obesity:: Patient communicates acknowledgment, Needs reinforcement Hypertension Patient Hypertension Risk Factors Are:: No documented hx of HTN Recommendations Include:: Maintain BP <130/85, DASH dietary guidelines, Decrease /maintain normal body weight, Moderation of ETOH Hypertension:: Patient communicates acknowledgment, Needs reinforcement Heart Disease Patient Heart Disease Risk Factors Are:: Family history of heart disease < 65 years old, Previous cardiac event Recommendations Include:: Educated family members of their risk, Educated family members of importance of prevention of heart disease Heart Disease Response Code:: Patient communicates acknowledgment, Needs reinforcement Diabetes Patient Diabetes Risk Factors Are:: No documented hx of diabetes Metabolic Syndrome Patient Metabolic Syndrome Risk Factors Are [3 of 5]:: Waist circumference > 35 [female] or 40 [male], High triglyceride >150, Hypertension, Low HDL <40 [male] or < 50 [female] Recommendations Include:: Reinforce compliance to risk factor modifications, Encouraged follow-up with Primary Care Physician Metabolic Syndrome Response Code:: Patient communicates acknowledgment, Needs reinforcement Sedentary Patient Sedentary Risk Factors Are:: Lack of regular exercise Recommendations Include:: Aerobic exercise 5-7 times/week for 20-30 minutes continuously, Benefits of regular exercise, Discussed home walking program, Monitored Outpatient Cardiac Rehab Sedentary Response Code:: Patient communicates acknowledgment, Needs reinforcement Stress Recommendations Include:: Identification of stressors, and assessment of coping skills, Stress management techniques Stress Response Code:: Patient communicates acknowledgment, Needs reinforcement
== END 2018-08-15 10:15 | disposition home or self-care (01) ==
LOC: CLSP 09:51 → ICU 08-15 10:03
PROVIDERS: Family Provider Family Medicine; PCP Family Medicine; Referring Provider Internal Medicine Cardiovascular Disease; Visit Provider Internal Medicine Cardiovascular Disease
DX: I25.10 Atherosclerotic heart disease of native coronary artery without angina pectoris (principal); I10 Essential (primary) hypertension; E78.5 Hyperlipidemia, unspecified; E66.9 Obesity, unspecified; Z68.35 Body mass index [BMI] 35.0-35.9, adult; Z86.19 Personal history of other infectious and parasitic diseases; Z95.5 Presence of coronary angioplasty implant and graft; Z79.82 Long term (current) use of aspirin; Z79.899 Other long term (current) drug therapy
CPT/HCPCS: 80048; 80061; 85027; 92928; 93005; 99152; 99153; C1760; J7030; J7040; A4216; C1725; C1769; C1874; C1887; C1894; C9600; Q9967

== ENCOUNTER → 2018-08-29 | Outpatient (CLI) | payer MEDICARE, SELFPAY ==
[2018-08-14 15:08] VITALS: BMI 34.8
[2018-08-23 10:07] VITALS: BMI 35.6
[2018-08-28 09:08] VITALS: BMI 34.8
--- NOTE | 2018-08-29 09:22 | CR.ITP_ITS ---
General Information - General Information Admitting Diagnosis: PCI with stenting - Education/Goals Barriers to Learning: None Individual Counseling: Initial Assessment: Abnormal Cholesterol Levels, High Blood Pressure, Overweight/Obesity, B. Waist Circumference >35/Females >40/Males, C. High Triglycerides >150, Hypertension, Low HDL <40/Males or <50/Females, Stress Cardiac Rehabilitation Goals: 1. Maintain the individual as the primary focus of care. 2. To improve the patient's quality of life. 3. Identification of cardiac risk factors and provide cardiac risk factor management. 4. Enhance the psychosocial status of the patient. 5. Reconditioning enough to allow the patient to resume customary activities. 6. Control symptoms of cardiac disease Scale for measuring improvement of personal goals: Enter appropriate number in Comments. 2 = Unchanged. 3 = Slightly Better. 4 = Moderate Improvement. 5 = Met my Goal Personal Goals: Initial Assessment: Improve knowledge of cardiac disease, Improve muscle strength and endurance, Control risk factors (learn risk factor modification) Exercise - Initial Assessment - Visit Date of Eval: 08/29/18 - Stages of Change Stages of Change:: Action - Physician Prescribed Exercise Modalities: Treadmill, Biodyne, Rower, Airdyne, NuStep, SciFit Frequency (days/week): 3x/week for 12 weeks [36 sessions] Intensity: 60-80% age predicted maximum heart rate reserve METs - Progression: 0.5-1.0 MET, RPE 11-14 WEEK: yes - Hypertension Do any of the following apply?: Yes Resting Blood Pressure:: 118/62 - Intervention Home Exercise/Activity Goal:: Moderate Exercise 30 min/day x 5 days/wk - Education Goals:: Warm-up, RPE CHARLI Scale, S/S, Safe Exercise, Self-Monitoring - Exercise Program Goals Exercise Program Goals: Aerobic Activity >30 min Nutrition - Initial Assessment - Program Goals Nutrition Program Goals: LDL <70. Total Cholesterol <200. HDL >45. Triglyc erides <150. HgbA1C <7%. BMI <25 - Visit Date of Assessment:: 08/29/18 - Stages of Change Stages of Change:: Action - Lipids Total Cholesterol (mg/dL) Goal = less than 200 mg/dL: 109 HDL Cholesterol (mg/dL) Goal = less than 45 mg/dL: 31 LDL Cholesterol (mg/dL) Goal = less than 70 mg/dL: 42 Triglycerides (mg/dL) Goal = less than 150 mg/dL: 182 - Diabetes Diabetes:: No - Weight Management Height: 5 ft 7.5 in Weight:: 222 lb Body Fat %:: 34 - Intervention Referral to dietitian:: Yes Referral to Diabetic Clinic:: No Will attend diet classes:: Yes - Education Gave educational materials for:: Relate diabetes to coronary artery disease, Healthy eating Tobacco - Initial Assessment - Program Goals Tobacco Program Goals: Complete smoking cessation. Attend education classes. Improve Knowledge Test score - Stage of Change Stages of Change:: Maintenance - Learning Barriers Learning Barriers: Ready to Learn Total Score:: 16 - Family Support Do you have family support?: Yes - Tobacco Use Tobacco Use: Non-smoker Do you use smokeless tobacco?: No - Intervention Smoking Cessation Referral:: No Individual Education/Counseling:: No Education Schedule Given:: Yes - Education Gave educational material for:: Coronary artery disease, Risk factors, Sexuality, Medical compliance, Cardiac A&P, Angina signs & symptoms Psychosocial - Initial Assess - Target Goals Target Goals: Assess presence or absence of depression. Using a valid screening tool, maximizes coping skills. Positive support system - Stages of Change Stages of Change:: Action - Psychosocial Test Tool Used:: HANDS Depression Questionnaire Self-reported stress:: yes, but less than it was. Total Mood Screening Score:: 1 Self-Efficacy Score:: 10 - Intervention PS - Interventions: Yes Attend Stress Management Classes, Yes Uses Stress Management Skills, No Referral to Mental Health, No Referral to [facility] Case Management, No Referral to Physician - Education Gave educational materials for:: Coping techniques, Signs & symptoms of depression, Stress management, Relaxation techniques - Assistive Devices Assistive Devices:: None Fall Risk Assessed:: Yes Patient Health Questionnaire Initial Assessment 1. Little interest or pleasure in doing things: Not at all 2. Feeling down, depressed, or hopeless: Not at all 3. Trouble falling or staying asleep, or sleeping too much: Not at all 4. Feeling tired or having little energy: Several days 5. Poor appetite or overeating: Not at all 6. Feeling bad about yourself -- or that you are a failure or have let yourself or your family down: Not at all 7. Trouble concentrating on things, such as reading the newspaper or watching television: Not at all 8. Moving or speaking so slowly that other people could have noticed. Or the opposite - being so fidgety or restless that you have been moving around a lot more than usual: Not at all 9. Thoughts that you would be better off , or of hurting yourself in some way: Not at all How difficult have these problems made it for you to do your work, take care of things at home, or get along with other people?: Not difficult at all Total Score: 1 [id number] SV Test - Statements CAD is a disease of the arteries in the heart: False Examples of risk factors for heart disease: True Angina is chest pain or discomfort: True The benefits of resistance training include: True Eating more meat and dairy products: False Anti-platelet medications such as aspirin are important: True The only effective way to manage stress: False An exercise warm-up slowly increases heart rate: I Don't Know Prepared, processed foods usually have high sodium: True Depression is common after a heart attack: I Don't Know The statin medications lower cholesterol: True To control blood pressure, lower the amount of sodium: I Don't Know If someone gets chest discomfort during walking: False Transfats are partially hydrogenated vegetable oils: True Sleep apnea that is not treated increases the risk: False To control cholesterol, one should become a vegetarian: False Someone knows if he/she is exercising at the right level: False Diabetes cannot be prevented with exercise & health eating: False Stress is a large risk for heart attack: True A diet that can help lower blood pressure is rich in: True - Total Score Total Correct Responses: 16 Self-Efficacy Initial Assessment We would like to know how confident you are in doing certain activities. Please select your confidence level for:: Select your confidence level for the following using the scale 1-10 where 1 is not at all confident and 10 is totally confident. Your score is the average of all 6 responses. Fatigue: How confident are you that you can keep the fatigue caused by your disease from interfering with the things you want to do? Select Number: 10 Physical Discomfort or Pain: How confident are you that you can keep the physical discomfort or pain of your disease from interfering with the things you want to do? Select Number: 10 Emotional Distress: How confident are you that you can keep the emotional distress caused by your disease from interfering with the things you want to do? Select Number: 10 Other Symptoms or Health Problems: How confident are you that you can keep other symptoms or health problems from interfering with the things you want to do? Select Number: 10 Different Tasks and Activities: How confident are you that you can do the different tasks and activities needed to manage your health condition so as to reduce your need to see a doctor? Select Number: 10 Medication: How confident are you that you can do things other than just taking medication to reduce how much your illness affects your everyday life? Select Number: 10 Total Score:: 10 Nutrition Survey - Nutrition Survey Instructions Scoring Instructions: Scoring is as follows: Yes = 1 points. No = 0 point. Patient score that is >/=12 is considered to be at potential nutritional risk and could benefit from a referral to a registered dietitian. - Nutrition Survey Initial Have you lost >10 lbs over the past 2 months without trying?: No Are you following a special diet at home for diabetes, low fat, or low salt?: No Are you interested in meeting with a dietitian for help understanding your diet?: Yes Do you eat less than 3 meals a day?: No Do you eat fatty meats (mckeon, sausage, ribs, etc), fried foods, desserts, large amounts of salad dressings, margarine, butter, or cheese most days?: No Do you have food allergies? [Enter types in comment field]: Yes Do you eat in restaurants more than 3 times a week?: No Do you season food with salt, seasoning salt, or garlic salt?: No Do you used canned, boxed, frozen meals, or soups, seasoning packets?: No Total Score:: 2
[2018-08-29 09:44] VITALS: BP 118/62
--- NOTE | 2018-08-29 09:45 | PCM.CR.HP2 ---
CR - History & Physical - General Arrival date:: 08/29/18 Arrival time:: 09:45 Date of Referral:: 08/29/18 Date of CR Evaluation:: 08/29/18 Referring Physician: Dr. Gary Man Primary Diagnosis: PCI with stent - History of Present Cardiac Event Onset Date: Enter Onset Date of cardiac illnesses in Comment field below Current stable Angina Pectoris:: No Acute Myocardial Infarction within 12 months:: No Coronary Artery Bypass Graft:: No Heart valve replacement or repair:: No PTCA or coronary stenting:: Yes - 05/23/18, 08/14/18 Heart or Heart-Lung Transplant:: No Heart Failure EF <35%:: No - Medications Home Medications: Ambulatory Orders Medication Instructions Recorded gabapentin 300 mg capsule 300 mg PO BID 12/24/17 levothyroxine 137 mcg tablet 137 mcg PO DAILY 12/24/17 Aspirin [Aspirin, Baby] 81 mg PO DAILY@0800 #30 tab.chew 05/22/18 Nitroglycerin [Nitrostat] 0.4 mg SL PRN PRN #30 tab.subl 05/22/18 atenolol 100 mg tablet 100 mg PO BID 90 Days #90 tab 07/31/18 clopidogrel 75 mg tablet 75 mg PO DAILY #90 tab 07/31/18 hydrochlorothiazide 12.5 mg capsule 12.5 mg PO DAILY #90 cap 07/31/18 losartan 100 mg tablet 100 mg PO DAILY #90 tab 07/31/18 atorvastatin 80 mg tablet 80 mg PO QHS #90 tab 08/22/18 - Allergies Allergies/Adverse Reactions: Allergies bee venom protein (honey bee) Allergy (Verified 08/28/18 08:54) Anaphylaxis aspirin [From Percodan] Adverse Reaction (Verified 08/28/18 08:54) Unknown codeine Adverse Reaction (Verified 08/28/18 08:54) Unknown morphine Adverse Reaction (Verified 08/28/18 08:54) Unknown oxycodone [From Percodan] Adverse Reaction (Verified 08/28/18 08:54) Unknown - Sleep Disorder Evaluation Hx of Sleep Apnea: No Do you snore loudly (louder than talking or can be heard through closed doors)?: No Do you often feel tired/ fatigued/ sleepy during daytime?: No Has anyone observed you stop breathing during sleep?: No History of Hypertension (for STOP score): Yes STOP Results: Negative Advanced Directives - Advanced Directives Power of Baton Twirler: Yes Living Will: Yes Advance Directives Information Provided: Yes Advance Directives on File: Yes DNR Order?:: No Past Medical History - Past Medical Illness Medical History: Past Medical History (Last Reviewed 08/28/18 @ 08:51 by Dimple Yee) Dyslipidemia (high LDL; low HDL) (Chronic) E78.5 Essential (primary) hypertension (Chronic) I10 Atherosclerosis of coronary artery of [place] heart without angina pectoris (Chronic) I25.10 [id number] LAD with a 2.25 x 12 mm Promus Synergy, DAMION-mid LAD distal to DIAG#2 with a 2.5 x 16 mm Promus Synergy, DAMION-mid LAD with a 3.0 x 12 mm Promus Synergy, DAMION proximal DIAG#2 with a 2.25 x 8 mm Promus Synergy 05/23/2018 Benign neoplasm of brain D33.2 meningioma Bilateral headaches R51 Environmental allergies Z91.09 Facet arthropathy, lumbar M47.816 Herpes zoster B02.9 Hyperthyroidism E05.90 Obesity E66.9 - Past Surgical History Surgical History: Past Surgical History (Last Reviewed 08/28/18 @ 08:51 by Dimple Yee) H/O right coronary artery stent placement (Resolved) Onset Date: 08/14/18 Z95.5 DAMION mid RCA with a 4.0 x 32 Promus Synergy stent 08/14/18; -DAMION-distal LAD with a 2.25 x 12 mm Promus Synergy, DAMION- mid LAD distal to DIAG#2 with a 2.5 x 16 mm Promus Synergy, DAMION- mid LAD with a 3.0 x 12 mm Promus Synergy, DAMION proximal DIAG#2 with a 2.25 x 8 mm Promus Synergy 05/23/2018 History of abdominal surgery Z98.890 History of hysterectomy Z90.710 History of partial thyroidectomy Z98.890 Hx of cholecystectomy Z90.49 Surgical History: cholecystectomy, hysterectomy, - - lumbar arthroplasty, thyroidectomy - Family History Summary Family History: Family History (Last Reviewed 08/28/18 @ 08:51 by Dimple Yee) Father Heart disease Diabetes Brother Diabetes Other Hypertension Social History - Smoking History Smoking Status: Never smoker Hx Tobacco Use: No Hx Smoking Exposure: No - Alcohol Use Alcohol Usage: No - Substance Abuse Hx Substance Use: No - Occupation Occupation (List type of work in comments):: Employed - Hobbies, Recreation, Social Activities Hobbies: Other - gardening, knitting, roomboxes. Recreational Activities: I am able to engage in all my recreational activities Social Environment - Status Marital Status: - Current Living Arrangements Living Environment:: Spouse - Children How many children do you have?: 2 Do any of your children live nearby?: No - Safety Do you feel safe in your surroundings?: Yes - Assistance Do you need any assistance at home?: no Review of Systems - Review of Systems Hints: Right click = Denies (Slash). Left click = Reports ([place]) Review of Present Symptoms: Reports: Fatigue, Appetite - Normal, Appetite - Special Diet, Sleep - Normal. Denies: Shortness of Breath at Rest, Shortness of Breath with Exertion, PVD, Operative Discomfort, Angina, Wound Healing, Dizziness/Lightheadedness, Heart Arrhythmia/Irregularities, Sexual Changes - Pain Is Patient Pain Free?: Yes Risk Factor Assessment - Chief Complaint Chief Complaint: cardiac rehab - Pulse Pulse Rate: 68 Pulse Rhythm: Regular - Hypertension How long have you been treated?: 10 years On medication(s)?: yes Blood Pressure Sitting - Right Arm: 118/62 Blood Pressure Sitting - Left Arm: 130/70 - Stress Stress: Recent, Work-related - Blood Cholesterol/Lipids Total Cholesterol (mg/dL) Goal = less than 200 mg/dL: 109 HDL Cholesterol (mg/dL) Goal = less than 40 mg/dL: 31 LDL Cholesterol (mg/dL) Goal = less than 70 mg/dL: 42 Triglycerides (mg/dL) Goal = less than 150 mg/dL: 182 - Diabetes Nutrition Referral for Diabetes: No - Obesity Height: 5 ft 7.5 in Weight:: 222 lb Weight in Pounds: 222.0 lbs Body Mass Index (BMI): 34.2 Realistic Weight Goal (Loss of 1-2 lbs/week): 198 Nutritional Referral for Obesity: Yes - Physical Inactivity Physical Inactivity: Reg Exercise 30 min/day - Risk Stratification Risk Guidelines: Lowest Risk: Risk Factor for Smoking, Risk Factor for Hypertension, Risk Factor for Sedentary Lifestyle, Risk Factor for Depression, Moderate Risk: Risk Factor for Dyslipidemia, Risk Factor for Diabetes, Risk Factor for Obesity - For Smoking Smoking Risk Guidelines: Smoking Low Risk: None or quit greater than 6 months ago. Smoking Moderate Risk: Smoker or quit 6 months or less ago. Smoking High Risk: Smoker - For Dyslipidemia Dyslipidemia Risk Guidelines: Low Risk: Moderate Risk: High Risk: 15-25% fat 25.1-29% fat >/= 30% fat. <7% sat fat 7-9% sat fat >9% sat fat. <150 mg chol 150-299 mg chol >/= 300 mg chol. LDL <100 LDL 100-129 LDL >/= 130. Chol/HDL ratio <5.0 Chol/HDL ratio 5.0-6.0 Chol/HDL ratio >6.0. Triglycerides <100 Triglycerides 100-149 Triglycerides >/= 150 - For Diabetes Mellitus Diabetes Risk Guidelines: Diabetes Low Risk: HgA1c <6.5% and/or FBG <120. Diabetes Moderate Risk: HgA1c 6.6-7.9% and/or FBG 120-180. Diabetes High Risk: HgA1c >/= 8% and/or FBG >180 - For Obesity/Overweight Obesity/Overweight Risk Guidelines: Obesity Low Risk: BMI <25.0. Obesity Moderate Risk: BMI 25-29.9. Obesity High Risk: BMI >/= 30.0 - For Hypertension Hypertension Risk Guidelines: Hypertension Low Risk: Systolic <120 and Diastolic <80. Hypertension Moderate Risk: Systolic 120-139 and Diastolic 80-89. Hypertension High Risk: Systolic >/= 140 and Diastolic >/= 90 - For Sedentary Lifestyle Sedentary Lifestyle Risk Guidelines: Sedentary Lifestyle Low Risk: >/= 1,500 kcal/week. Sedentary Lifestyle Moderate Risk: 700-1,499 kcal/week. Sedentary Lifestyle High Risk: < 700 kcal/week - For Depression Depression Risk Guidelines: Depression Low Risk: Not clinically depressed. Depression Moderate Risk: Mildly depressed. Depression High Risk: Clinically depressed - Family History Family History: Family History (Last Reviewed 08/28/18 @ 08:51 by Dimple Yee) Father Heart disease Diabetes Brother Diabetes Other Hypertension Motivation - Motivation to Participate On a scale of 1 to 10, how prepared are you to commit to attending program?: 9
--- NOTE | 2018-08-29 09:50 | CR.HP_ITS ---
CR - History & Physical - General Arrival date:: 08/29/18 Arrival time:: 09:45 Date of Referral:: 08/29/18 Date of CR Evaluation:: 08/29/18 Referring Physician: Dr. Gary Man Primary Diagnosis: PCI with stent - History of Present Cardiac Event Onset Date: Enter Onset Date of cardiac illnesses in Comment field below Current stable Angina Pectoris:: No Acute Myocardial Infarction within 12 months:: No Coronary Artery Bypass Graft:: No Heart valve replacement or repair:: No PTCA or coronary stenting:: Yes - 05/23/18, 08/14/18 Heart or Heart-Lung Transplant:: No Heart Failure EF <35%:: No - Medications Home Medications: Ambulatory Orders Medication Instructions Recorded gabapentin 300 mg capsule 300 mg PO BID 12/24/17 levothyroxine 137 mcg tablet 137 mcg PO DAILY 12/24/17 Aspirin [Aspirin, Baby] 81 mg PO DAILY@0800 #30 tab.chew 05/22/18 Nitroglycerin [Nitrostat] 0.4 mg SL PRN PRN #30 tab.subl 05/22/18 atenolol 100 mg tablet 100 mg PO BID 90 Days #90 tab 07/31/18 clopidogrel 75 mg tablet 75 mg PO DAILY #90 tab 07/31/18 hydrochlorothiazide 12.5 mg capsule 12.5 mg PO DAILY #90 cap 07/31/18 losartan 100 mg tablet 100 mg PO DAILY #90 tab 07/31/18 atorvastatin 80 mg tablet 80 mg PO QHS #90 tab 08/22/18 - Allergies Allergies/Adverse Reactions: Allergies bee venom protein (honey bee) Allergy (Verified 08/28/18 08:54) Anaphylaxis aspirin [From Percodan] Adverse Reaction (Verified 08/28/18 08:54) Unknown codeine Adverse Reaction (Verified 08/28/18 08:54) Unknown morphine Adverse Reaction (Verified 08/28/18 08:54) Unknown oxycodone [From Percodan] Adverse Reaction (Verified 08/28/18 08:54) Unknown - Sleep Disorder Evaluation Hx of Sleep Apnea: No Do you snore loudly (louder than talking or can be heard through closed doors)?: No Do you often feel tired/ fatigued/ sleepy during daytime?: No Has anyone observed you stop breathing during sleep?: No History of Hypertension (for STOP score): Yes STOP Results: Negative Advanced Directives - Advanced Directives Power of Box Liner: Yes Living Will: Yes Advance Directives Information Provided: Yes Advance Directives on File: Yes DNR Order?:: No Past Medical History - Past Medical Illness Medical History: Past Medical History (Last Reviewed 08/28/18 @ 08:51 by Dimple Yee) Dyslipidemia (high LDL; low HDL) (Chronic) E78.5 Essential (primary) hypertension (Chronic) I10 Atherosclerosis of coronary artery of [place] heart without angina pectoris (Chronic) I25.10 [id number] LAD with a 2.25 x 12 mm Promus Synergy, DAMION-mid LAD distal to DIAG#2 with a 2.5 x 16 mm Promus Synergy, DAMION-mid LAD with a 3.0 x 12 mm Promus Synergy, DAMION proximal DIAG#2 with a 2.25 x 8 mm Promus Synergy 2018 Benign neoplasm of brain D33.2 meningioma Bilateral headaches R51 Environmental allergies Z91.09 Facet arthropathy, lumbar M47.816 Herpes zoster B02.9 Hyperthyroidism E05.90 Obesity E66.9 - Past Surgical History Surgical History: Past Surgical History (Last Reviewed 08/28/18 @ 08:51 by Dimple Yee) H/O right coronary artery stent placement (Resolved) Onset Date: 08/14/18 Z95.5 DAMION mid RCA with a 4.0 x 32 Promus Synergy stent 08/14/18; -DAMION-distal LAD with a 2.25 x 12 mm Promus Synergy, DAMION- mid LAD distal to DIAG#2 with a 2.5 x 16 mm Promus Synergy, DAMION- mid LAD with a 3.0 x 12 mm Promus Synergy, DAMION proximal DIAG#2 with a 2.25 x 8 mm Promus Synergy 05/23/2018 History of abdominal surgery Z98.890 History of hysterectomy Z90.710 History of partial thyroidectomy Z98.890 Hx of cholecystectomy Z90.49 Surgical History: cholecystectomy, hysterectomy, - - lumbar arthroplasty, thyroidectomy - Family History Summary Family History: Family History (Last Reviewed 08/28/18 @ 08:51 by Dimple Yee) Father Heart disease Diabetes Brother Diabetes Other Hypertension Social History - Smoking History Smoking Status: Never smoker Hx Tobacco Use: No Hx Smoking Exposure: No - Alcohol Use Alcohol Usage: No - Substance Abuse Hx Substance Use: No - Occupation Occupation (List type of work in comments):: Employed - Hobbies, Recreation, Social Activities Hobbies: Other - gardening, knitting, roomboxes. Recreational Activities: I am able to engage in all my recreational activities Social Environment - Status Marital Status: - Current Living Arrangements Living Environment:: Spouse - Children How many children do you have?: 2 Do any of your children live nearby?: No - Safety Do you feel safe in your surroundings?: Yes - Assistance Do you need any assistance at home?: no Review of Systems - Review of Systems Hints: Right click = Denies ([place]). Left click = Reports ([place]) Review of Present Symptoms: Reports: Fatigue, Appetite - Normal, Appetite - Special Diet, Sleep - Normal. Denies: Shortness of Breath at Rest, Shortness of Breath with Exertion, PVD, Operative Discomfort, Angina, Wound Healing, Dizz iness/Lightheadedness, Heart Arrhythmia/Irregularities, Sexual Changes - Pain Is Patient Pain Free?: Yes Risk Factor Assessment - Chief Complaint Chief Complaint: cardiac rehab - Pulse Pulse Rate: 68 Pulse Rhythm: Regular - Hypertension How long have you been treated?: 10 years On medication(s)?: yes Blood Pressure Sitting - Right Arm: 118/62 Blood Pressure Sitting - Left Arm: 130/70 - Stress Stress: Recent, Work-related - Blood Cholesterol/Lipids Total Cholesterol (mg/dL) Goal = less than 200 mg/dL: 109 HDL Cholesterol (mg/dL) Goal = less than 40 mg/dL: 31 LDL Cholesterol (mg/dL) Goal = less than 70 mg/dL: 42 Triglycerides (mg/dL) Goal = less than 150 mg/dL: 182 - Diabetes Nutrition Referral for Diabetes: No - Obesity Height: 5 ft 7.5 in Weight:: 222 lb Weight in Pounds: 222.0 lbs Body Mass Index (BMI): 34.2 Realistic Weight Goal (Loss of 1-2 lbs/week): 198 Nutritional Referral for Obesity: Yes - Physical Inactivity Physical Inactivity: Reg Exercise 30 min/day - Risk Stratification Risk Guidelines: Lowest Risk: Risk Factor for Smoking, Risk Factor for Hypertension, Risk Factor for Sedentary Lifestyle, Risk Factor for Depression, Moderate Risk: Risk Factor for Dyslipidemia, Risk Factor for Diabetes, Risk Factor for Obesity - For Smoking Smoking Risk Guidelines: Smoking Low Risk: None or quit greater than 6 months ago. Smoking Moderate Risk: Smoker or quit 6 months or less ago. Smoking High Risk: Smoker - For Dyslipidemia Dyslipidemia Risk Guidelines: Low Risk: Moderate Risk: High Risk: 15-25% fat 25.1-29% fat >/= 30% fat. <7% sat fat 7-9% sat fat >9% sat fat. <150 mg chol 150-299 mg chol >/= 300 mg chol. LDL <100 LDL 100-129 LDL >/= 130. Chol/HDL ratio <5.0 Chol/HDL ratio 5.0-6.0 Chol/HDL ratio >6.0. Triglycerides <100 Triglycerides 100-149 Triglycerides >/= 150 - For Diabetes Mellitus Diabetes Risk Guidelines: Diabetes Low Risk: HgA1c <6.5% and/or FB G <120. Diabetes Moderate Risk: HgA1c 6.6-7.9% and/or FBG 120-180. Diabetes High Risk: HgA1c >/= 8% and/or FBG >180 - For Obesity/Overweight Obesity/Overweight Risk Guidelines: Obesity Low Risk: BMI <25.0. Obesity Moderate Risk: BMI 25-29.9. Obesity High Risk: BMI >/= 30.0 - For Hypertension Hypertension Risk Guidelines: Hypertension Low Risk: Systolic <120 and Diastolic <80. Hypertension Moderate Risk: Systolic 120-139 and Diastolic 80-89. Hypertension High Risk: Systolic >/= 140 and Diastolic >/= 90 - For Sedentary Lifestyle Sedentary Lifestyle Risk Guidelines: Sedentary Lifestyle Low Risk: >/= 1,500 kcal/week. Sedentary Lifestyle Moderate Risk: 700-1,499 kcal/week. Sedentary Lifestyle High Risk: < 700 kcal/week - For Depression Depression Risk Guidelines: Depression Low Risk: Not clinically depressed. Depression Moderate Risk: Mildly depressed. Depression High Risk: Clinically depressed - Family History Family History: Family History (Last Reviewed 08/28/18 @ 08:51 by Dimple Yee) Father Heart disease Diabetes Brother Diabetes Other Hypertension Motivation - Motivation to Participate On a scale of 1 to 10, how prepared are you to commit to attending program?: 9
[2018-08-29 10:07] VITALS: BP 118/62; BP 130/70; PULSE 68; BMI 34.2
== END | disposition home or self-care (01) ==
LOC: CR 08:52
PROVIDERS: Family Provider Family Medicine; PCP Family Medicine; Referring Provider Internal Medicine Cardiovascular Disease; Visit Provider Internal Medicine Cardiovascular Disease
DX: I25.10 Atherosclerotic heart disease of native coronary artery without angina pectoris (principal); E78.5 Hyperlipidemia, unspecified; I10 Essential (primary) hypertension; M47.816 Spondylosis without myelopathy or radiculopathy, lumbar region; E05.90 Thyrotoxicosis, unspecified without thyrotoxic crisis or storm; E66.9 Obesity, unspecified; Z91.09 Other allergy status, other than to drugs and biological substances; Z86.19 Personal history of other infectious and parasitic diseases; Z95.5 Presence of coronary angioplasty implant and graft; Z79.82 Long term (current) use of aspirin; Z79.899 Other long term (current) drug therapy

== ENCOUNTER → 2018-09-04 | Outpatient (CLI) | payer MEDICARE, SELFPAY ==
[2018-08-23 10:07] VITALS: BMI 35.6
[2018-08-28 09:08] VITALS: BMI 34.8
[2018-08-29 10:07] VITALS: BMI 34.2
--- NOTE | 2018-09-04 10:39 | CDU_ITS ---
Reason For Study: Left carotid bruit Rt. Velocities/BP Lt. Velocities/BP Prox CCA 96.9/20 cm/sec. Prox CCA 77.3/15.2 cm/sec. Mid CCA 76/21.3 cm/sec. Mid CCA 67.3/15.7 cm/sec. Dist CCA 58.6/14.6 cm/sec. Dist CCA 59.7/16.8 cm/sec. Prox ICA 75.4/20.6 cm/sec. Prox ICA 319.3/93.5 cm/sec. Mid ICA 155.8/60.8 cm/sec. Mid ICA 205.1/63.9 cm/sec. Dist ICA 202.5/66.5 cm/sec. Dist ICA 110.1/37.1 cm/sec. Rt. ICA/CCA = 2.7. Lt. ICA/CCA = 4.7. Prox ECA 117.4 cm/sec. Prox ECA 152.1 cm/sec. Rt. Vert. 61.3/13.3 cm/sec. Lt. Vert. 41.9/10.7 cm/sec. Right Extracranial There is homogeneous, smooth atherosclerotic plaque noted in the right common carotid artery. There is heterogeneous, irregular atherosclerotic plaque noted in the right internal carotid artery. There is intimal thickening but no significant atherosclerotic plaque noted in the right external carotid artery. Antegrade flow is noted in the right vertebral artery. Left Extracranial There is homogeneous, smooth atherosclerotic plaque noted in the left common carotid artery. There is heterogeneous, irregular atherosclerotic plaque noted in the left internal carotid artery. There is homogeneous, smooth atherosclerotic plaque noted in the left external carotid artery. Antegrade flow is noted in the left vertebral artery. Procedure Carotid Duplex [id number]. Exam performed in department. Interpretation Summary Moderate (50-69%) stenosis right extracranial internal carotid. Severe (>70%) stenosis left extracranial internal carotid. Flow within the vertebral arteries is antegrade bilaterally. Ordering Physician: Angelina Neves Referring Physician: MD Leonard Dilan Performed By: Rebeka Jama RVT
== END | disposition home or self-care (01) ==
LOC: CVS 10:39
PROVIDERS: Family Provider Family Medicine; PCP Family Medicine; Referring Provider Physician Assistant Medical; Visit Provider Physician Assistant Medical
DX: R09.89 Other specified symptoms and signs involving the circulatory and respiratory systems (principal); Z95.5 Presence of coronary angioplasty implant and graft
CPT/HCPCS: 93880

== ENCOUNTER 2018-09-18 15:15 | Outpatient (RCR) | payer MEDICARE, SELFPAY ==
[2018-08-23 10:07] VITALS: BMI 35.6
[2018-08-29 10:07] VITALS: BMI 34.2
== END 2018-09-22 23:59 ==
LOC: CR 15:15
PROVIDERS: Family Provider Family Medicine; PCP Family Medicine; Referring Provider Internal Medicine Cardiovascular Disease; Visit Provider Internal Medicine Cardiovascular Disease
DX: I25.10 Atherosclerotic heart disease of native coronary artery without angina pectoris (principal); I10 Essential (primary) hypertension; Z95.5 Presence of coronary angioplasty implant and graft
CPT/HCPCS: 93798

== ENCOUNTER 2018-10-16 15:15 | Outpatient (RCR) | payer MEDICARE, SELFPAY ==
[2018-08-23 10:07] VITALS: BMI 35.6
[2018-08-29 10:07] VITALS: BMI 34.2
--- NOTE | 2018-09-27 08:27 | CR.ITP_ITS ---
Exercise - 30-day Assessment - Visit Date of Eval: 09/27/18 Session #:: 11 - STARTED CR 08/30/2018 - Stages of Change Stages of Change:: Action - Physician Prescribed Exercise Modalities: Treadmill, Airdyne, NuStep Frequency (days/week): 3 Duration (Minutes):: 30-45 Intensity: 60-80% age predicted maximum heart rate reserve METs - Progression: 0.5-1.0 MET, RPE 11-14 WEEK: 4 Target Heart Rate:: 98-127 W MAX hr 98 - Hypertension Resting Blood Pressure:: 120/70 Peak Exercise Blood Pressure:: 142/72 Medication Changes:: No - Intervention Home Exercise/Activity Goal:: Moderate Exercise 30 min/day x 5 days/wk - Education Goals:: Warm-up, RPE CHARLI Scale, S/S, Safe Exercise, Self-Monitoring - Exercise Program Goals Exercise Program Goals: Aerobic Activity >30 min Nutrition - 30-Day Assessment - Program Goals Nutrition Program Goals: LDL <70. Total Cholesterol <200. HDL >45. Triglycerides <150. HgbA1C <7%. BMI <25 - Visit Date of Eval: 09/27/18 - Stages of Change Stages of Change:: Action - Lipids Has the patient seen the dietitian?: No - Diabetes Diabetes:: No Insulin: No Non-Insulin Dependent?: No - Weight Management Weight:: 225 lb - Intervention Referral to dietitian:: No Referral to Diabetic Clinic:: No Will attend diet classes:: Yes - Education Attended class for:: Healthy eating Tobacco - Initial Assessment - Program Goals Tobacco Program Goals: Complete smoking cessation. Attend education classes. Improve Knowledge Test score - Learning Barriers Learning Barriers: Ready to Learn Tobacco - 30-Day Assessment - Program Goals Tobacco Program Goals: Complete smoking cessation. Attend education classes. Improve Knowledge Test score - Stage of Change Stages of Change:: Action - Learning Barriers Learning Barriers: Participates in education - Family Support Do you have family support?: Yes - Tobacco Use Tobacco Use: Non-smoker Do you use smokeless tobacco?: No - Intervention Smoking Cessation Referral:: No Individual Education/Counseling:: No Education Schedule Given:: Yes - Education Attended class for:: Coronary artery disease, Risk factors, Sexuality, Medical compliance, Cardiac A&P, Angina signs & symptoms Psychosocial - Initial Assess - Target Goals Target Goals: Assess presence or absence of depression. Using a valid screening tool, maximizes coping skills. Positive support system - Psychosocial Test Tool Used:: HANDS Depression Questionnaire - Assistive Devices Fall Risk Assessed:: Yes Psychosocial - 30-Day Assess - Target Goals Target Goals: Assess presence or absence of depression. Using a valid screening tool, maximizes coping skills. Positive support system - Stages of Change Stages of Change:: Action - Psychosocial Test Tool Used:: HANDS Depression Questionnaire - Intervention PS - Interventions: Yes Attend Stress Management Classes, No Referral to Mental Health, No Referral to [facility] Case Management, No Referral to Physician, No Uses Stress Management Skills - Education Attended classes for:: Coping techniques, Signs & symptoms of depression, Stress management, Relaxation techniques - Patient/Program Goal Preventative Medication(s):: Aspirin, Clopidogrel, Beta sina, Statin/lipid - Assistive Devices Assistive Devices:: None Fall Risk Assessed:: Yes Patient Health Questionnaire 30-Day Re-eval Assessment 1. Little interest or pleasure in doing things: Not at all 2. Feeling down, depressed, or hopeless: Not at all 3. Trouble falling or staying asleep, or sleeping too much: Not at all 4. Feeling tired or having little energy: Not at all 5. Poor appetite or overeating: Not at all 6. Feeling bad about yourself -- or that you are a failure or have let yourself or your family down: Not at all 7. Trouble concentrating on things, such as reading the newspaper or watching television: Not at all 8. Moving or speaking so slowly that other people could have noticed. Or the opposite - being so fidgety or restless that you have been moving around a lot more than usual: Not at all 9. Thoughts that you would be better off , or of hurting yourself in some way: Not at all How difficult have these problems made it for you to do your work, take care of things at home, or get along with other people?: Not difficult at all Total Score: 0 Self-Efficacy 30-Day Re-eval Assessment We would like to know how confident you are in doing certain activities. Please select your confidence level for:: Select your confidence level for the following using the scale 1-10 where 1 is not at all confident and 10 is totally confident. Your score is the average of all 6 responses. Fatigue: How confident are you that you can keep the fatigue caused by your disease from interfering with the things you want to do? Select Number: 10 Physical Discomfort or Pain: How confident are you that you can keep the physical discomfort or pain of your disease from interfering with the things you want to do? Select Number: 10 Emotional Distress: How confident are you that you can keep the emotional distress caused by your disease from interfering with the things you want to do? Select Number: 10 Other Symptoms or Health Problems: How confident are you that you can keep other symptoms or health problems from interfering with the things you want to do? Select Number: 10 Different Tasks and Activities: How confident are you that you can do the different tasks and activities needed to manage your health condition so as to reduce your need to see a doctor? Select Number: 10 Medication: How confident are you that you can do things other than just taking medication to reduce how much your illness affects your everyday life? Select Number: 10 Total Score:: 10
[2018-09-27 08:30] VITALS: BP 120/70; BP 142/72
== END 2018-10-23 23:59 ==
LOC: CR 15:15
PROVIDERS: Family Provider Family Medicine; PCP Family Medicine; Referring Provider Internal Medicine Cardiovascular Disease; Visit Provider Internal Medicine Cardiovascular Disease
DX: I25.10 Atherosclerotic heart disease of native coronary artery without angina pectoris (principal); I10 Essential (primary) hypertension; Z95.5 Presence of coronary angioplasty implant and graft
CPT/HCPCS: 93798

== ENCOUNTER → 2019-03-03 12:50 | Outpatient (CLI) | payer MEDICARE, SELFPAY ==
[2018-08-23 10:07] VITALS: BMI 35.6
[2018-10-07 13:42] VITALS: BMI 34.4
--- NOTE | 2019-03-03 12:52 | CDU_ITS ---
Reason For Study: Bilateral carotid stenosis Rt. Velocities/BP Lt. Velocities/BP Prox CCA 99.5/17.3 cm/sec. Prox CCA 113.4/20 cm/sec. Mid CCA 85.2/18.6 cm/sec. Mid CCA 79/21.2 cm/sec. Dist CCA 74.7/20 cm/sec. Dist CCA 71.6/17.6 cm/sec. Prox ICA 76.5/18.8 cm/sec. Prox ICA 444.3/161.6 cm/sec. Mid ICA 160.9/46.7 cm/sec. Mid ICA 249.2 cm/sec. Dist ICA 202.5/46.7 cm/sec. Dist ICA 146.4/52.7 cm/sec. Rt. ICA/CCA = 2.38. Lt. ICA/CCA = 5.62. Prox ECA 141.1/9.4 cm/sec. Prox ECA 178.4/11.6 cm/sec. Rt. Vert. 65.2/8 cm/sec. Lt. Vert. 38.4/11.4 cm/sec. Right Extracranial There is homogeneous, smooth atherosclerotic plaque noted in the right common carotid artery. There is heterogeneous, irregular atherosclerotic plaque noted in the right internal carotid artery. The right internal carotid artery is very tortuous. There is intimal thickening but no significant atherosclerotic plaque noted in the right external carotid artery. Antegrade flow is noted in the right vertebral artery. Left Extracranial There is homogeneous, smooth atherosclerotic plaque noted in the left common carotid artery. There is heterogeneous, irregular atherosclerotic plaque noted in the left internal carotid artery. The atherosclerotic plaque causes acoustic shadowing. There is homogeneous, smooth atherosclerotic plaque noted in the left external carotid artery. Antegrade flow is noted in the left vertebral artery. Procedure Carotid Duplex 57281. Exam performed in department. Interpretation Summary Irregular plaque within the right internal carotid 50-69% stenosis right internal carotid <50% stenosis right external carotid Irregular calcific plague left internal and external carotid arteries >70% stenosis left internal carotid <50% stenosis left external carotid Patent and antegrade vertebrals bilaterally Progression of stenosis on the left from 09/04/18 Ordering Physician: Willie Brooks Referring Physician: MD Leonard Dialn Performed By: Rebeka Jama RVT
== END ==
PROVIDERS: Family Provider Family Medicine; PCP Family Medicine; Referring Provider Surgery; Visit Provider Surgery
DX: I65.23 Occlusion and stenosis of bilateral carotid arteries (principal)
CPT/HCPCS: 93880

== ENCOUNTER 2020-05-20 08:43 | Outpatient (RCR) | payer MEDICARE, SELFPAY ==
[2018-08-23 10:07] VITALS: BMI 35.6
[2019-10-28 10:02] VITALS: BMI 34.4
== END 2020-05-20 23:59 ==
LOC: IMMUN 08:43
PROVIDERS: Visit Provider Family Medicine
DX: Z23 Encounter for immunization (principal)
CPT/HCPCS: 0011A; 0012A; 91301

== ENCOUNTER → 2020-06-24 10:40 | Outpatient (CLI) | payer MEDICARE, SELFPAY ==
[2018-08-23 10:07] VITALS: BMI 35.6
[2020-06-17 13:12] VITALS: BMI 33.6
--- NOTE | 2020-06-24 10:43 | ECHOCS_ITS ---
Reason For Study: CAD/ASHD Procedure This was a 2D Doppler, Color Flow transthoracic echocardiogram. The study was technically difficult. Due to body habitus. Exam performed in department. Left Ventricle Normal LV size. Left ventricular systolic function is normal. The estimated ejection fraction is 65 %. Stage 1 diastolic dysfunction. No regional wall motion abnormalities noted. Right Ventricle Normal RV size. Normal systolic function. Atria Normal left atrium. Normal right atrium. Mitral Valve Normal mitral valve. Tricuspid Valve Normal tricuspid valve. Mild tricuspid valve insufficiency. Aortic Valve Trisinus/trileaflet aortic valve. Pulmonic Valve Normal pulmonic valve. Great Vessels Normal aortic root. The pulmonary artery is normal size. Normal inferior vena cava. Pericardium/Pleural No pericardial effusion. Medication 22 gauge I.V. with prn adaptor inserted into right arm. Diluted definity 3.0ml given slow IV push to enhance endocardial definition. MMode/2D Measurements & Calculations LVIDd: 4.5 cm IVSd: 1.1 cm Ao root diam: 2.9 cm LVIDs: 2.7 cm LVPWd: 1.1 cm RVDd: 3.1 cm FS: 40.1 % LAV(MOD-bp): 65.6 ml LA A4 area: 21.5 cm2 LA dimension(2D): 3.5 cm LAV(MOD-bp) Indexed: 31.5 ml/m2 LAV(MOD-sp2): 61.4 ml LAV(MOD-sp4): 68.4 ml RA A4 area: 12.9 cm2 Time Measurements MV dec time: 0.25 sec Doppler Measurements & Calculations MV E max zac: 68.6 cm/sec Lat Peak E' Zac: 8.3 cm/sec Med Peak E' Zac: 7.0 cm/sec MV A max zac: 100.4 cm/sec E/E' lat: 8.3 E/E' med: 9.8 MV E/A: 0.68 Ao V2 max: 136.9 cm/sec LV V1 max: 86.9 cm/sec PA V2 max: 102.8 cm/sec Ao max P.5 mmHg LV V1 max P.0 mmHg TR max zac: 273.7 cm/sec TR max P.0 mmHg ECHO/Echo Complete W/ Contrast Interpretation Summary Normal LV size. Left ventricular systolic function is normal. The estimated ejection fraction is 65 %. Stage 1 diastolic dysfunction. Contrast injection was performed. Ordering Physician: Luciano Mna Referring Physician: Dilan Valle Performed By: Essie Roberts, SHIRIN, RVT
== END ==
PROVIDERS: PCP Family Medicine; Visit Provider Internal Medicine Cardiovascular Disease
DX: I25.10 Atherosclerotic heart disease of native coronary artery without angina pectoris (principal)
CPT/HCPCS: 93306; Q9957; A4216; C8929

== ENCOUNTER 2021-06-17 10:00 | Outpatient (RCR) | payer MEDICARE, SELFPAY ==
[2018-08-23 10:07] VITALS: BMI 35.6
--- NOTE | 2021-05-19 11:50 | HP.PTEVAL_ITS ---
Patient's Visit Information MATEO BEDOYA is a 76 year old F referred to Physical Therapy by Dr. Vincent Powers DO with a diagnosis of L shoulder RC tendonitis.. Date of Evaluation: 05/19/21 Physical Therapist: Ruy Ortega, DPT, OCS, CSCS - Visit Plan Frequency: 2-3x /Week Duration: 2-4 Weeks Plan: 2-3x/.week x 4 weeks for]. 1. A/PROM L shoulder and mobs as needed grade 1 for pain and 3 for movement. 2. US R subscap insertion nonthermal. 3. RC and postural strength - Subjective Has L shoulder pain. Dossi sent to [facility]. X rays done and injection given 3 days ago. which helped 80%. Shoulder was hurting anterior lateral to biceps and into shoulder blade posteriorly. Started hurting 8 weeks ago possibly due to reaching up in closet and reaching backwards repeatedly. Pain is comfortable at rest and starting to use arm to do hair or reach up or out and it will get to 8/10. Retired one year ago and has been cleaning up house since then. \sleep is interrupted as she tends to be a L side sleeper, rolling onto L at night hurts. Not up since injection. Pain has kept her from doing hair, Hard to lift L arm to shave under arm, has to start with L arm for coats. Basic ADLs are getting done. Hobbies: knit and garden. Knitting is no problem. - Pain L shoulder Pain Intensity (Out of 10): 0 Pain Intensity Range: 0, 8 - Objective Posture is forward head and anterior scap, tender to palpation L supraspinatus and subscap tendon. - ext rotation lag test, - drop arm, + HK adn + neer on L. cervical AROM WFL and without pain. UE AROM L shoulder flexion 90 and abd 90 and ext rotation 30 adn IR PSIS all limited by pain actively and spasms passively. R shoulder is 15 elevation, 70 ext rotation and L1 IR. Elbow and wrist AROM WNL. Sensation UE WNL to gross light touch. reflexes 2/3 bi and triceps. Strength is strong R UE and 4/5 L UE except flexion, abduction adn IR all 4- adn painful. - Balance/Special Test Scores Quick DASH Score: 18.1800 - Goals Goal 1:: Full aROM L UE without pain Goal Time Frame: 2-4 Weeks Goal 2:: i appropr HEP to minimize future problems Goal Time Frame: 2-4 Weeks Goal 3:: Pt feel back to 99% better and normal activitiy Goal Time Frame: 2-4 Weeks Goal 4:: Able to do hair without noticing pain Goal Time Frame: 2-4 Weeks - Rehabilitation Potential Physical Therapy Diagnosis: L shoulder Rc tendoinits Rehabilitation Potential: Fair - Anticipated Interventions Patient/Client Instruction: Educate patient on: Condition, Plan of Care For the Purpose of:: To decrease pain, To increase ROM, To improve muscle performance and motor function, To improve ability of physical actions for home/community/work/leisure, To improve gait and locomotor functions Therapeutic Exercise to Include: Strength training, Agility training, Postural training, Flexibilty training, Passive ROM, Active ROM For the Purpose of:: To decrease pain, To increase ROM, To improve muscle performance and motor function Manual Therapy Techniques to Include: Mobilization, Passive ROM, Soft tissue mobilization For the Purpose of:: To decrease pain, To increase ROM, To improve muscle performance and motor function, To increase tolerance to activity/condition/position Ultrasound (thermal/non thermal): Yes - nonthermal subscap For the Purpose of:: To decrease pain, To decrease swelling/inflammation, To increase ROM Thank you for the opportunity to evaluate your patient. For Medicare and Medicare HMO plans, please review the plan of care and approve it. It will need to be FAXED BACK to us at [phone] for Medicare purposes. For Medicare only, by signing this I certify the plan of care. Please let me know if there are questions or concerns regarding this plan of care. Physician Signature: Date:
--- NOTE | 2021-06-17 10:13 | HP.PTREVAL ---
Dr. Vincent Powers, DO, It has been my pleasure to treat MATEO BEDOYA over the last 12 visits for L shoulder RC tendonitis.. Please see the progress note below for an update on the physical therapy plan of care! Subjective: Went to [facility] Sunday and L carotid whcih was replaced is clogging again, will need a stent. They think structurally in neck may be causing clogging. Will get stent end of June. Saw industrial/organizational psychologist yesterday Dr Man and he wants a stress test. L shoulder is doing well, just a mild ache with lifting. Comfortable at rest. Does not keep her from doing anything. Seep is OK. Objective/Function: Full functional AROM without pain L shoulder. flexion 139, ext rotation 49. strength ext rot 4 on L others 4+ and symmetrical with R. Pt doing very well and able to put hands on head comfortably Plan Plan: Pt to f/u in one month as needed and d/c if doing really well still. Balance/Gait/Functional tests - Balance/Special Test Scores Quick DASH Score: 4.5450 Goals Goal 1:: Full aROM L UE without pain Goal Time Frame: 2-4 Weeks Goal Progress: Progressing Goal 2:: i appropr HEP to minimize future problems Goal Time Frame: 2-4 Weeks Goal Progress: Goal Met Goal 3:: Pt feel back to 99% better and normal activitiy Goal Time Frame: 2-4 Weeks Goal Progress: Goal Met Goal 4:: Able to do hair without noticing pain Goal Time Frame: 2-4 Weeks Goal Progress: Goal Met Goal 5:: Maintain improvements on own for one months Goal Time Frame: 2-4 Weeks Anticipated Interventions Patient/Client Instruction: Educate patient on: Condition, Plan of Care For the Purpose of:: To decrease pain, To increase ROM, To improve muscle performance and motor function, To improve ability of physical actions for home/community/work/leisure, To improve gait and locomotor functions Therapeutic Exercise to Include: Strength training, Agility training, Postural training, Flexibilty training, Passive ROM, Active ROM For the Purpose of:: To decrease pain, To increase ROM, To improve muscle performance and motor function Manual Therapy Techniques to Include: Mobilization, Passive ROM, Soft tissue mobilization For the Purpose of:: To decrease pain, To increase ROM, To improve muscle performance and motor function, To increase tolerance to activity/condition/position Ultrasound (thermal/non thermal): Yes - nonthermal subscap For the Purpose of:: To decrease pain, To decrease swelling/inflammation, To increase ROM Please do not hesitate to contact me at [phone] by phone or if you have questions or concerns regarding this new plan of care! Sincerely, Ruy Ortega, DPT, OCS, CSCS
--- NOTE | 2021-07-29 08:39 | HP.PTDCNRP_ITS ---
MATEO BEDOYA was seen in my office for initial evaluation on 05/19/21. The following Plan of Care was established for this patient: Initial Frequency: 2-3x /Week Initial Duration: 2-4 Weeks Patient/Client Instruction: Educate patient on: Condition, Plan of Care For the Purpose of:: To decrease pain, To increase ROM, To improve muscle performance and motor function, To improve ability of physical actions for home/community/work/leisure, To improve gait and locomotor functions Therapeutic Exercise to Include: Strength training, Agility training, Postural training, Flexibilty training, Passive ROM, Active ROM For the Purpose of:: To decrease pain, To increase ROM, To improve muscle performance and motor function Manual Therapy Techniques to Include: Mobilization, Passive ROM, Soft tissue mo bilization For the Purpose of:: To decrease pain, To increase ROM, To improve muscle performance and motor function, To increase tolerance to activity/condition/position Ultrasound (thermal/non thermal): Yes - nonthermal subscap For the Purpose of:: To decrease pain, To decrease swelling/inflammation, To increase ROM This patient was last seen in our office 06/17/21. Pertinent comments regarding their Physical therapy will appear below: Pt seen 12 visits of POC and was 99% better. he was to f/u one month later as needed to ensure condition but did not schedule or attend. at this point, it has been over a month and I will discontinue. At this point I will be discontinuing this patient from physical therapy. I would be happy to see this patient again in the future if found appropriate by the physician. Thank you! Ruy Ortega, DPT, OCS, CSCS Balance/Gait/Functional tests - Balance/Special Test Scores Quick DASH Score: 4.5450
== END 2021-06-17 19:00 | disposition home or self-care (01) ==
LOC: PT 10:00
PROVIDERS: PCP Family Medicine; Referring Provider Orthopaedic Surgery; Visit Provider Orthopaedic Surgery
DX: M75.82 Other shoulder lesions, left shoulder (principal)
CPT/HCPCS: 97035; 97110; 97140; 97161; 97164

== ENCOUNTER 2021-07-01 06:43 | Outpatient (CLI) | payer MEDICARE, SELFPAY ==
[2018-08-23 10:07] VITALS: BMI 35.6
--- NOTE | 2021-07-01 13:23 | STRESSREP ---
Stress Test Report Pharmacologic myocardial perfusion stress test. 76-year-old lady with a history of chest pain. Stress protocol: Resting EKG demonstrates sinus bradycardia with a rate of 52 bpm normal intervals are noted resting blood pressure is 132/72 mmHg. 0.4 mg of regadenoson was infused per usual protocol followed by rapid intravenous saline flush injection continuous EKG monitoring was performed. The patient has previously been put on a treadmill and had exercised for 4 minutes but did not attain maximum predicted heart rate and the exercise was discontinued. Continuous EKG monitoring was performed. At rest there were no ST or T wave changes noted to suggest abnormal flow reserve and at peak infusion nonspecific ST changes were noted with did not meet the criteria for ischemia. No clinical angina was noted. The maximum blood pressure was 148/80 mmHg. Myocardial perfusion protocol. 13.7 mCi of technetium 99m sestamibi was injected at rest. 0.4 mg of regadenoson was infused per usual protocol. At peak infusion 42.0 mCi of technetium 99m sestamibi was injected stress images were obtained stress and rest images were reconstructed and compared in the short axis vertical long and horizontal long axis. Gated images were also obtained. Perfusion SPECT analysis: Review of the stress images demonstrate normal uptake of tracer noted in all areas of the myocardium. The resting images similarly demonstrate a normal perfusion pattern. There is no area of reversibility to suggest ischemia and no previous infarct is noted. Gated SPECT analysis: The gated ejection fraction is 80%. Conclusion: Normal pharmacologic myocardial perfusion stress test. Preserved ejection fraction.
== END 2021-07-01 23:59 | disposition home or self-care (01) ==
PROVIDERS: PCP Family Medicine; Visit Provider Nurse Practitioner Gerontology
DX: R07.9 Chest pain, unspecified (principal)
CPT/HCPCS: 78452; 93017; A9500; A4216; J2785

== ENCOUNTER 2023-04-29 00:52 | Emergency (ER) | payer MEDICARE, SELFPAY ==
[2018-08-23 10:07] VITALS: BMI 35.6
[2023-04-29] VITALS (10 sets, daily range): BP systolic 128–180; BP diastolic 58–110; PULSE 81–89; RESP 10–24; TEMP 36.2; O2SAT 92–98; BMI 35.6
[2023-04-29] MEDS: oxyCODONE 5 MG Tablet PO (01:14)
--- OUTSIDE RECORDS SUMMARY | 2023-04-29 01:17 | XMS RPT_ITS | CCD ---
Author Name Unknown Address [address] [place] [address] Organization [facility] Care Team Providers Care Registered Veterinary Technician Name Role Phone Alejandra Valle MD Primary Care Provider Dixie Shin MD Unavailable Dixie Shin MD Unavailable Laura Pavon PTyalang Unavailable All FELIPE, Radha Andrew Unavailable Alejandra Valle MD Primary Care Provider [phone] Dixie Shin MD Unavailable Dixie Shin MD Unavailable Savanah PT, Fayaz Unavailable Tameka Arriola RN Unavailable Unavailable Radha FELIPE, Ashley Unavailable Savanah PT, Fayaz Unavailable Radha FELIPE, Ashley Unavailable Flako FELIPE, Tameka Unavailable Unavailable Dixie Shin MD Unavailable ALEJANDRA VALLE Primary Care Unavailable DIOMEDES DAVEY Referring Unavailable ALEJANDRA VALLE Primary Care Unavailable DIOMEDES DAVEY Referring Unavailable ALEJANDRA VALLE Primary Care Unavailable LUANNE KENT Attending Unavailable ALEJANDRA VALLE Primary Care Unavailable ALEJANDRA VALLE Primary Care Unavailable EROS JAY Referring Unavailable ALEJANDRA VALLE Primary Care Unavailable ALEJANDRA VALLE Primary Care Unavailable DIXIE SHIN Attending Unavailable ALEJANDRA VALLE Primary Care Unavailable ELDERBROCK, ALEJANDRA D Referring Unavailable ELDERBROCK, ALEJANDRA D Primary Care Unavailable REESEBROCK, ALEJANDRA D Attending Unavailable TAMMY, ALEJANDRA D Primary Care Unavailable REESEJAMICK, ALEJANDRA D Primary Care Unavailable DIXIE SHIN Referring Unavailable DECAPUA, EROS Elizabeth Referring Unavailable ELDERBROCK, ALEJANDRA D Primary Care Unavailable ELDERBROCK, ALEJANDRA D Primary Care Unavailable TAMMY, ALEJANDRA D Referring Unavailable DIOMEDES DAVEY Attending Unavailable REESEBROCK, ALEJANDRA D Primary Care Unavailable REESEBROCK, ALEJANDRA D Referring Unavailable ELDERBROCK, ALEJANDRA D Primary Care Unavailable TAMMYALEJANDRA D Attending Unavailable TAMMY, ALEJANDRA D Primary Care Unavailable ELDERBROPRAMOD, ALEJANDRA D Referring Unavailable REESEBROPRAMOD, ALEJANDRA D Primary Care Unavailable DIXIE SHIN Attending Unavailable DIXIE SHIN Admitting Unavailable Allergies Allergy Classification Reported Allergen(s) Allergy Type Date of Onset Reaction(s) Facility (20 sources) Acetaminophen; Translations: [ACETAMINOPHEN] Drug Allergy 5 Intolerance [facility] Work Phone: (20 sources) Aspirin; Translations: [ASPIRIN] Drug Allergy 5 Intolerance [facility] Work Phone: (20 sources) Codeine; Translations: [CODEINE] Drug Allergy 5 GI Upset [facility] Work Phone: (20 sources) Morphine; Translations: [MORPHINE] Drug Allergy 5 Other: See Comments, GI Upset [facility] Work Phone: (20 sources) bee stings and insect bites [Other] Propensity to adverse reactions 6 Swelling [facility] Work Phone: (2 sources) Bee Sting; Translations: [BEE STING] Allergy to substance 4 Anaphylaxis [facility] Work Phone: (1 source) OTHER; Translations: [OTHER] Propensity to adverse reactions (disorder) 6 [facility] Medications Current Medications Medication Drug Class(es) Dates Sig (Normalized) Sig (Original) cyclobenzaprine hydrochloride 5 mg oral tablet (1 source) Muscle Relaxant Start: 11-25-2021 End: 11-30-2021 take 1 tablet by mouth every twelve hours as needed cyclobenzaprine (FLEXERIL) 5 mg tablet Take 1 tablet by mouth twice daily as needed for up to 5 days. 10 tablet 0 11/25/2021 11/30/2021 Active Completed/Discontinued Medications Medication Drug Class(es) Dates Sig (Normalized) Sig (Original) aspirin 325 mg oral tablet (20 sources) Platelet Aggregation Inhibitor, Nonsteroidal Anti-inflammatory Drug Start: 06-17-2021 take 1 tablet by mouth once daily aspirin 325 mg tablet Take 1 tablet by mouth once daily. 30 tablet 0 06/17/2021 Suspended Problems Active Problems Problem Classification Problem Date Documented Date Episodic/Chronic Chronic kidney disease (20 sources) Chronic kidney disease stage 3A ; Translations: [Stage 3a chronic kidney disease] Onset: 01-13-2020 01-13-2020 Chronic Coronary atherosclerosis and other heart disease (20 sources) Coronary atherosclerosis; Translations: [Atherosclerotic heart disease of [place] coronary artery without angina pectoris] Onset: 01-09-2019 Chronic Diabetes mellitus with complications (20 sources) Type 2 diabetes mellitus; Translations: [Type 2 diabetes mellitus with diabetic chronic kidney disease] Onset: 12-27-2020 Chronic Diabetes mellitus without complication (1 source) Diabetes mellitus without complication; Translations: [Type 2 diabetes mellitus with stage 3a chronic kidney disease, without long-term current use of insulin (HCC)] Onset: 12-27-2020 Disorders of lipid metabolism (20 sources) Mixed hyperlipidemia; Translations: [Mixed hyperlipidemia] Onset: 05-24-2012 Chronic Esophageal disorders (20 sources) Gastroesophageal reflux disease; Translations: [Gastro-esophageal reflux disease without esophagitis] Onset: 01-13-2020 01-13-2020 Chronic Essential hypertension (20 sources) Benign essential hypertension; Translations: [Essential (primary) hypertension] Onset: 12-16-2005 Chronic Genitourinary symptoms and ill-defined conditions (20 sources) Female stress incontinence; Translations: [Stress incontinence (female) (male)] Onset: 08-23-2012 08-23-2012 Chronic Hypertension with complications and secondary hypertension (20 sources) Hypertensive renal disease; Translations: [Hypertensive chronic kidney disease with stage 1 through stage 4 chronic kidney disease, or unspecified chronic kidney disease] Onset: 12-27-2020 12-27-2020 Chronic Occlusion or stenosis of precerebral arteries (20 sources) Bilateral stenosis of carotid arteries; Translations: [Occlusion and stenosis of bilateral carotid arteries] Onset: 10-02-2019 Chronic Osteoarthritis (20 sources) Osteoarthritis of hip; Translations: [Unilateral primary osteoarthritis, unspecified hip] Onset: 07-09-2014 Chronic Other aftercare (1 source) Post-discharge follow-up; Translations: [Encounter for follow-up examination after completed treatment for conditions other than malignant neoplasm] Episodic Other and unspecified benign neoplasm (20 sources) Benign neoplasm of brain; Translations: [Benign neoplasm of brain, unspecified] Onset: 05-10-2004 01-13-2020 Chronic Other and unspecified benign neoplasm (1 source) Benign neoplasm of cerebral meninges; Translations: [Benign neoplasm of cerebral meninges] 01-15-2023 Chronic Other connective tissue disease (1 source) Presence of left artificial hip joint; Translations: [Status post total hip replacement, left] Onset: 04-26-2023 Chronic Other connective tissue disease (1 source) Disorder of tendon; Translations: [Other specified disorders of synovium and tendon, unspecified site] Episodic Other connective tissue disease (1 source) Neuralgia; Translations: [Neuralgia and neuritis, unspecified] 01-15-2023 Episodic Other diseases of bladder and urethra (2 sources) Overactive bladder; Translations: [Overactive bladder] Chronic Other non-traumatic joint disorders (1 source) Hip pain; Translations: [Pain in left hip] 01-08-2023 Episodic Other skin disorders (2 sources) Eruption; Translations: [Rash and other nonspecific skin eruption] Episodic Spondylosis; intervertebral disc disorders; other back problems (1 source) Acute low back pain; Translations: [Acute bilateral low back pain without sciatica] Episodic Thyroid disorders (20 sources) Acquired hypothyroidism; Translations: [Hypothyroidism, unspecified] Onset: 05-24-2012 Chronic Unclassified (1 source) Consult Onset: 04-13-2023 Viral infection (1 source) 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; 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] Episodic Past or Other Problems Problem Classification Problem Date Documented Da te Episodic/Chronic Diabetes mellitus without complication (20 sources) Increased glucose level; Translations: [Other abnormal glucose] Onset: 05-24-2012 05-24-2012 Episodic Other non-traumatic joint disorders (1 source) Pain in left hip; Translations: [Pain in left hip] Onset: 01-08-2023 Episodic Other screening for suspected conditions (not mental disorders or infectious disease) (3 sources) Patient encounter status; Translations: [Encounter for screening mammogram for malignant neoplasm of breast] Onset: 08-18-2022 Episodic Results Test Name Value Interpretation Reference Range Facil ity Vital Signs Date Time Vital Sign Value Performing Clinician Del ortega 01-15-2023 12:47-0400 Body weight 98.43 kg Alejandra Valle MD Work Phone: [facility] 01-15-2023 12:47-0400 Diastolic blood pressure 72 mm[Hg] Alejandra Valle MD Work Phone: [facility] 01-15-2023 12:47-0400 Heart rate 72 /min Alejandra Valle MD Work Phone: [facility] 01-15-2023 12:47-0400 Respiratory rate 16 /min Alejandra Valle MD Work Phone: [facility] 01-15-2023 12:47-0400 Systolic blood pressure 128 mm[Hg] Alejandra Valle MD Work Phone: [facility] 10-02-2022 14:49-0400 Body temperature 97.9 [degF] Rizwana Praisler-Wood SHOE CLEANER.MANAGEMENT INTERN Work Phone: [facility] 10-02-2022 14:49-0400 Body weight 100.25 kg Rizwana Praisler-Wood SHOE CLEANER.MANAGEMENT INTERN Work Phone: [facility] 10-02-2022 14:49-0400 Diastolic blood pressure 72 mm[Hg] Rizwana Praisler-Wood SHOE CLEANER.MANAGEMENT INTERN Work Phone: [facility] 10-02-2022 14:49-0400 Heart rate 76 /min Rizwana Praisler-Wood SHOE CLEANER.MANAGEMENT INTERN Work Phone: [facility] 10-02-2022 14:49-0400 Respiratory rate 16 /min Rizwana Praisler-Wood SHOE CLEANER.MANAGEMENT INTERN Work Phone: [facility] 10-02-2022 14:49-0400 SaO2% (BldA) [Mass fraction] 96 % Rizwana Praisler-Wood SHOE CLEANER.MANAGEMENT INTERN Work Phone: [facility] 10-02-2022 14:49-0400 Systolic blood pressure 118 mm[Hg] Rizwana Praisler-Wood SHOE CLEANER.MANAGEMENT INTERN Work Phone: [facility] 09-11-2022 14:43-0400 Body temperature 97.5 [degF] Rizwana Praisler-Wood SHOE CLEANER.MANAGEMENT INTERN Work Phone: [facility] 09-11-2022 14:43-0400 Body weight 99.61 kg Rizwana Praisler-Wood SHOE CLEANER.MANAGEMENT INTERN Work Phone: [facility] 09-11-2022 14:43-0400 Diastolic blood pressure 62 mm[Hg] Rizwana Praisler-Wood SHOE CLEANER.MANAGEMENT INTERN Work Phone: [facility] 09-11-2022 14:43-0400 Heart rate 72 /min Rizwana Praisler-Wood SHOE CLEANER.MANAGEMENT INTERN Work Phone: [facility] 09-11-2022 14:43-0400 Respiratory rate 18 /min Rizwana Praisler-Wood SHOE CLEANER.MANAGEMENT INTERN Work Phone: [facility] 09-11-2022 14:43-0400 SaO2% (BldA) [Mass fraction] 95 % Rizwana Praisler-Wood SHOE CLEANER.MANAGEMENT INTERN Work Phone: [facility] 09-11-2022 14:43-0400 Systolic blood pressure 116 mm[Hg] Rizwana Praisler-Wood SHOE CLEANER.MANAGEMENT INTERN Work Phone: [facility] 07-12-2022 14:31-0400 Diastolic blood pressure 62 mm[Hg] Diomedes Davey MD Work Phone: [facility] 07-12-2022 14:31-0400 Heart rate 71 /min Diomedes Davey MD Work Phone: [facility] 07-12-2022 14:31-0400 Systolic blood pressure 133 mm[Hg] Diomedes Davey MD Work Phone: [facility] 01-18-2022 14:36-0400 Diastolic blood pressure 58 mm[Hg] Diomedes Davey MD Work Phone: [facility] 01-18-2022 14:36-0400 Heart rate 66 /min Diomedes Davey MD Work Phone: [facility] 01-18-2022 14:36-0400 Systolic blood pressure 124 mm[Hg] Diomedes Davey MD Work Phone: [facility] 11-25-2021 11:21-0400 Body temperature 97.59 [degF] Pauly Colby SHOE CLEANER.MANAGEMENT INTERN Work Phone: [facility] 11-25-2021 11:21-0400 Body weight 97.07 kg Pauly Colby SHOE CLEANER.MANAGEMENT INTERN Work Phone: [facility] 11-25-2021 11:21-0400 Diastolic blood pressure 76 mm[Hg] Pauly Colby SHOE CLEANER.MANAGEMENT INTERN Work Phone: [facility] 11-25-2021 11:21-0400 Heart rate 69 /min Pauly Colby SHOE CLEANER.MANAGEMENT INTERN Work Phone: [facility] 11-25-2021 11:21-0400 Respiratory rate 18 /min Pauly Colby SHOE CLEANER.MANAGEMENT INTERN Work Phone: [facility] 11-25-2021 11:21-0400 SaO2% (BldA) [Mass fraction] 97 % Pauly Colby SHOE CLEANER.MANAGEMENT INTERN Work Phone: [facility] 11-25-2021 11:21-0400 Systolic blood pressure 128 mm[Hg] Pauly Colby SHOE CLEANER.MANAGEMENT INTERN Work Phone: [facility] 08-18-2021 09:42-0400 Body temperature 99.3 [degF] Diomedes Davey MD Work Phone: [facility] 08-18-2021 09:42-0400 Diastolic blood pressure 61 mm[Hg] Diomedes Davey MD Work Phone: [facility] 08-18-2021 09:42-0400 Heart rate 68 /min Diomedes Davey MD Work Phone: [facility] 08-18-2021 09:42-0400 Systolic blood pressure 137 mm[Hg] Diomedes Davey MD Work Phone: [facility] 07-25-2021 09:55-0400 Body weight 95.71 kg Alejandra Valle MD Work Phone: [facility] 07-25-2021 09:55-0400 Diastolic blood pressure 72 mm[Hg] Alejandra Valle MD Work Phone: [facility] 07-25-2021 09:55-0400 Heart rate 74 /min Alejandra Valle MD Work Phone: [facility] 07-25-2021 09:55-0400 Respiratory rate 16 /min Alejandra Valle MD Work Phone: [facility] 07-25-2021 09:55-0400 Systolic blood pressure 126 mm[Hg] Alejandra Valle MD Work Phone: [facility] 07-18-2021 12:12-0400 Body height 170.2 cm Ashleigh Marsh SHOE CLEANER.MANAGEMENT INTERN Work Phone: [facility] 07-18-2021 12:12-0400 Body temperature 98.4 [degF] Ashleigh Marsh SHOE CLEANER.MANAGEMENT INTERN Work Phone: [facility] 07-18-2021 12:12-0400 Body weight 94.85 kg Ashleigh Amrsh SHOE CLEANER.MANAGEMENT INTERN Work Phone: [facility] 07-18-2021 12:12-0400 Diastolic blood pressure 62 mm[Hg] Ashleigh Marsh SHOE CLEANER.MANAGEMENT INTERN Work Phone: [facility] 07-18-2021 12:12-0400 Heart rate 71 /min Ashleigh Marsh SHOE CLEANER.MANAGEMENT INTERN Work Phone: [facility] 07-18-2021 12:12-0400 Respiratory rate 18 /min Ashleigh Marsh SHOE CLEANER.MANAGEMENT INTERN Work Phone: [facility] 07-18-2021 12:12-0400 SaO2% (BldA) [Mass fraction] 96 % Ashleigh Marsh SHOE CLEANER.MANAGEMENT INTERN Work Phone: [facility] 07-18-2021 12:12-0400 Systolic blood pressure 123 mm[Hg] Ashleigh Marsh APRN.MANAGEMENT INTERN Work Phone: [facility] 07-13-2021 13:10-0400 Body weight 93.12 kg Alejandra Valle MD Work Phone: [facility] 07-13-2021 13:10-0400 Diastolic blood pressure 74 mm[Hg] Alejandra Valle MD Work Phone: [facility] 07-13-2021 13:10-0400 Heart rate 71 /min Alejandra Valle MD Work Phone: [facility] 07-13-2021 13:10-0400 Respiratory rate 16 /min Alejandra Valle MD Work Phone: [facility] 07-13-2021 13:10-0400 Systolic blood pressure 134 mm[Hg] Alejandra Valle MD Work Phone: [facility] Encounters Encounter Date Encounter Type Care Provider Facility Start: 04-26-2023 Telephone encounter Jacki Sommer [facility] Procedures Date Procedure Procedure Detail Performing Clinician Start: 04-13-2023 Antibody screen ALEJANDRA PERKINS Plan of Treatment Date Care Activity Detail Author Start: 10-12-2026 Urine microalbumin profile [facility] Start: 04-27-2024 Complete blood count Hemoglobin/Hematocrit [facility] Start: 04-27-2024 Creatinine measurement Serum Creatinine [facility] Start: 04-13-2024 BP Controlled (<130/80) BP Controlled (<130/80) [facility] in Start: 01-16-2024 Annual PCP Team Chronic Disease Visit Annual PCP Team Chronic Disease Visit [facility] Start: 01-16-2024 BP Controlled (<130/80) BP Controlled (<130/80) [facility] Start: 01-13-2024 Creatinine measurement Serum Creatinine [facility] Start: 01-13-2024 Hepatitis B surface antibody level LDL Cholesterol [facility] Start: 01-13-2024 Serum Creatinine Serum Creatinine [facility] Start: 10-12-2023 Hemoglobin A1c measurement HbA1C [facility] Start: 10-03-2023 BP CONTROLLED (<130/80) BP CONTROLLED (<130/80) [facility] in Start: 09-12-2023 BP CONTROLLED (<130/80) BP CONTROLLED (<130/80) [facility] Start: 07-17-2023 End: 10-16-2023 ALBUMIN/CREAT RATIO RND UR ALBUMIN/CREAT RATIO RND UR Lab Routine Type 2 diabetes mellitus with stage 3a chronic kidney disease, without long-term current use of insulin (HCC) Expected: 07/17/2023 (Approximate), Expires: 10/16/[address] [facility] Work Phone: Immunizations Immunization Date Immunization Notes Care Provider Laura pederson 11-04-2021 influenza virus vaccine, unspecified formulation Ashley Garcia RN Work Phone: [facility] 08-10-2021 COVID-19 vaccine, booster dose (MODERNA) Mammography Coordinator [facility] 11-08-2020 influenza, high dose seasonal, preservative-free Alejandra Valle MD Work Phone: [facility] 06-16-2020 COVID-19 vaccine, fu ll dose (MODERNA) Alejandra Valle MD Work Phone: [facility] 05-19-2020 COVID-19 vaccine, fu ll dose (MODERNA) Alejandra Valle MD Work Phone: [facility] 11-10-2019 influenza, high dose seasonal, preservative-free Alejandra Valle MD Work Phone: [facility] 12-08-2018 influenza, high dose seasonal, preservative-free Alejandra Valle MD Work Phone: [facility] 12-01-2017 zoster vaccine recombinant Alejandra Valle MD Work Phone: [facility] 11-23-2017 influenza, high dose seasonal, preservative-free Alejandra Valle MD Work Phone: [facility] 11-13-2017 pneumococcal conjuga te vaccine, 13 valent Alejandra Valle MD Work Phone: [facility] 07-20-2017 zoster vaccine recombinant Alejandra Valle MD Work Phone: [facility] 11-20-2016 influenza, high dose seasonal, preservative-free Alejandra Valle MD Work Phone: [facility] 10-12-2016 tetanus and diphther ia toxoids, adsorbed, preservative free, for adult use (5 Lf of tetanus toxoid and 2 Lf of diphtheria toxoid) Alejandra Valle MD Work Phone: [facility] Work Phone: 12-27-2015 pneumococcal polysaccharide vaccine, 23 valent Alejandra Valle MD Work Phone: [facility] 11-18-2015 influenza, high dose seasonal, preservative-free Alejandra Valle MD Work Phone: [facility] 11-10-2014 influenza, high dose seasonal, preservative-free Alejandra Valle MD Work Phone: [facility] 02-20-2014 pneumococcal conjuga te vaccine, 13 valent Alejandra Valle MD Work Phone: [facility] Work Phone: 12-10-2013 influenza, high dose seasonal, preservative-free Alejandra Valle MD Work Phone: [facility] Work Phone: 12-02-2012 influenza virus vaccine, unspecified formulation Alejandra Valle MD Work Phone: [facility] 01-12-2012 zoster vaccine, live Alejandra perkins MD Work Phone: [facility] Work Phone: 12-06-2011 influenza, seasonal, injectable Alejandra Valle MD Work Phone: [facility] 11-23-2010 influenza virus vaccine, unspecified formulation Alejadnra Valle MD Work Phone: [facility] Work Phone: 10-10-2010 hepatitis A vaccine, unspecified formulation Alejandra Valle MD Work Phone: [facility] Work Phone: 2010 influenza virus vaccine, unspecified formulation Alejandra Valle MD Work Phone: [facility] 01-08-2009 influenza virus vaccine, unspecified formulation Alejandra Valle MD Work Phone: [facility] 03-22-2007 influenza virus vaccine, unspecified formulation Alejandra Valle MD Work Phone: [facility] Work Phone: 03-22-2007 tetanus toxoid, redu nichole diphtheria toxoid, and acellular pertussis vaccine, adsorbed Alejandra Valle MD Work Phone: [facility] Work Phone: 01-18-2006 influenza virus vaccine, whole virus Alejandra Valle MD Work Phone: [facility] Work Phone: 12-26-2005 pneumococcal polysaccharide vaccine, 23 valent Alejandra Valle MD Work Phone: [facility] Work Phone: 03-27-1997 tetanus and diphther ia toxoids, adsorbed, preservative free, for adult use (2 Lf of tetanus toxoid and 2 Lf of diphtheria toxoid) Alejandra Valle MD Work Phone: [facility] Work Phone: Payers Date Payer Category Payer Medicare AETNA MEDICARE A ETNA MEDICARE O [id number] 2021-Present [phone] [address] [place] [address] [facility] [id number] 2021 Medicare [id number] 2021 Medicare [id number] Social History Date Type Detail Facility Start: 03-08-2011 End: 01-08-2023 Tobacco smoking status NHIS Never smoked tobacco [facility] Start: 07-13-2021 End: 04-18-2023 Alcohol intake Current drinker of alcohol (finding) [facility] Start: 01-22-2020 End: 09-13-2022 History SDOH Alcohol Frequency 2 [facility] Start: 05-01-2019 History SDOH Alcohol Comment very rarely/ twice per year [facility] Start: 10-22-2019 History SDOH Financial 5 [facility] Start: 10-22-2019 End: 09-13-2022 History SDOH Food Worry 1 [facility] Start: 1945 Sex Assigned At Female [facility] Start: 07-03-2021 End: 01-18-2022 Exposure to SARS-CoV-2 (event) Not sure [facility] Start: 07-05-2021 End: 12-13-2021 Exposure to SARS-CoV-2 (event) Unable to assess [facility] Start: 03-08-2011 End: 01-08-2023 Tobacco use and exposure Smokeless tobacco non-user [facility] Work Phone: Start: 08-31-2022 End: 10-02-2022 History of Social function [facility] Work Phone: Start: 08-31-2022 End: 10-02-2022 Tobacco use panel [facility] Work Phone: Adult Depression Screening Assessment 0 [facility] Work Phone: (I/We) worried wheth er (my/our) food would run out before (I/we) got money to buy more. Never true [facility] Work Phone: Start: 12-10-2018 Gender identity Identifies as female gender (finding) [facility] Start: 12-10-2018 Sexual orientation Heterosexual (finding) [facility] How often to you hav e a drink containing alcohol? Monthly or less [facility] History of tobacco use Passive smoker [facility] Has the [employer], [employer], or [employer] threatened to shut off services in your home in past 12Mo No [facility] Do you belong to any clubs or organizations such as presybeterian groups, unions, fraternal or athletic groups, or school groups? Yes [facility] Are you now , , , , never or living with a partner? [facility] How many standard dr inks containing alcohol do you have on a typical day? 1 or 2 [facility] How often do you hav e 6 or more drinks on 1 occasion? Never [facility] Do you feel stress - tense, restless, nervous, or anxious, or unable to sleep at night because your mind is troubled all the time - these days [OSQ] Not at all [facility] Medical Equipment Procedure Code Equipment Code Equipment Origin al Text Equipment Identifier Dates Biolox Delta Mod ular Ceramic Head 36mm W/3mm Neck Type 1 Taper [id number]_[facility] Start: 01-15-2020 Stem Taperloc 13 3d 7 High Offset Taper Pps 136mm Femoral Type 1 Full - [id number]_[facility] Start: 01-15-2020 Liner G7 36mm D Neutral Arcomxl Acetabular Hip - [id number]_[facility] Start: 01-15-2020 Shell G7 50mm D Hemisphere Offset Porous Acetabular Limit Hole Color Coded - [id number]_[facility] Start: 01-15-2020 Screw G7 6.5mm D ome 20mm Acetabular Low Profile Hip - [id number]_[facility] Start: 01-15-2020 [id number],Azar mackey, [id number] - [id number]_[facility] Start: 07-19-2021 Biolox Delta Mod ular Ceramic Head 36mm W/3mm Neck Type 1 Taper [id number] Start: 04-26-2023 Shell G7 50mm D Offset Hemisphere [place] Acetabular 3 Hole Limit Hip - [id number]_[facility] Start: 04-26-2023 Liner Acetabular Size D [id number] Hip Longevity Neutral G7 - [id number] Start: 04-26-2023 Stem Taperloc 13 3d 7 High Offset Full Profile Taper Pps 134mm Femoral Type - [id number]_[facility] Start: 04-26-2023 Screw G7 6.5mm D ome 20mm Acetabular Low Profile Hip - [id number]_[facility] Start: 04-26-2023 Goals Date Patient Goal Desired Activity /State Personal health goal Clinical Notes 01-13-2020 to 04-27-2023 Telephone Encounter - Fabiana Jacki Villar PSS - 04/26/2023 3:18 PM ESTTelephone Encounter - Umesh Liz APRN.CNP - 03/12/2023 6:54 AM ESTTelephone Encounter - KingstonBetty LPN - 03/10/2023 9:13 AM EST Note Date & Type Note Facility 04-27-2023 Note HNO ID: [id number] Author: JOHNNY GONZALEZ MD Service: Orthopaedic Surgery Author Type: Resident Type: Progress Notes Filed: 04/27/2023 06:10 Note Text: Inpatient Progress Note Orthopaedic Surgery If Urgent AND unable to reach [phone] OR If 5p-7a/Wknd: p2BONE Assessment 78 year old female who is s/p left total hip arthroplasty by Dr. Shin on 04/26/2023. The patient did well overnight. Pain is well-controlled. Plan -Mild acute kidney injury-started IV maintenance fluids and bolus 500 mL. Recheck BMP at 11 AM - Weightbearing: As tolerated left lower extremity -Posterior precautions - Dressing: Aquacel to be left on until postop day 7-10 - Drains: None - Kumar: Per nursing protocol - Diet: Regular - MIVF while NPO - HLIV when tolerating adequate PO - DVT Prophylaxis: 81 ASA BID, SCDs - Antibiotics: Perioperative Ancef - Cultures: None - Consults: PT/OT care management, appreciate recs Dispo: PT/OT recommend discharge home with home PT. Patient is medically clear for discharge home today pending physical therapy, improvement in kidney function Plan of care discussed with: Provider, RN, Patient. Rounding Subjective No o/n issues Pain well controlled. Denies nausea, vomiting, chest pain, shortness of breathe. Objective Blood pressure (!) 125/41, pulse 83, temperature 36.7 ?C (98.1 ?F), temperature source Oral, resp. rate 20, height 171.5 cm (5' 7.52 ), weight 98 kg (216 lb), SpO2 95%. Physical Exam AAOx3, NAD Breathing comfortably at rest RRR to peripheral palpation Left Lower Extremity Inspection: Dressing is clean, dry, intact. Appropriate postoperative swelling Palpation: TTP to surgical site Compartments: Soft, compressible Sensory: SILT to SP/DP/T/S/S distributions Motor: fires DF/PF/EHL Vascular: DP 2+ to palp; CR < 2 sec; foot warm AND well-perfused Lab Review Creatinine (mg/dL) Date Value 04/27/2023 1.27 (H) 04/13/2023 0.96 01/12/2023 0.91 12/22/2020 1.07 (H) 08/31/2020 1.10 (H) 05/28/2020 1.04 (H) Creatinine (POCT) (mg/dL) Date Value 06/15/2021 1.10 Sodium (mmol/L) Date Value 04/27/2023 139 04/13/2023 142 01/12/2023 142 12/22/2020 142 08/31/2020 140 05/28/2020 140 Potassium (mmol/L) Date Value 04/27/2023 3.8 04/13/2023 3.7 01/12/2023 4.0 12/22/2020 3.6 (L) 08/31/2020 3.9 05/28/2020 3.9 Hemoglobin (g/dL) Date Value 04/27/2023 10.1 (L) 04/13/2023 13.8 07/10/2022 13.6 01/17/2020 8.1 (L) 01/16/2020 10.3 (L) 01/15/2020 10.6 (L) Hematocrit (%) Date Value 04/27/2023 31.1 (L) 04/13/2023 42.4 07/10/2022 43.3 01/17/2020 26.2 (L) 01/16/2020 32.4 (L) 01/15/2020 32.4 (L) WBC (k/uL) Date Value 04/27/2023 17.11 (H) 04/13/2023 10.80 07/10/2022 9.66 01/17/2020 16.35 (H) 01/16/2020 26.57 (H) 01/15/2020 26.36 (H) PT INR (no units) Date Value 10/21/2019 1.0 01/01/2002 0.95 Glucose, Point of Care (mg/dL) Date Value 07/19/2021 132 (A) 07/19/2021 131 (A) 01/17/2020 139 (A) 01/17/2020 150 (A) 01/16/2020 225 (A) 01/16/2020 182 (A) Please scroll above for Assessment AND Plan. Plan of care discussed with: Provider, RN, Patient. Johnny Gonzalez MD PGY-3 Resident Orthopaedic Surgery Please page [phone]) from 5p-6a and on weekends for any issues. [facility] 04-26-2023 Note HNO ID: [id number] Author: GRICEL LOO RN Service: ? Author Type: Registered Nurse Type: Progress Notes Filed: 04/26/2023 20:21 Note Text: At 14:10 PM, Called DESTINEE Lozoya, @ #[id number], in PACU, and received report. At 14:43 PM, Patient admitted to the nursing division. [facility] 04-26-2023 Miscellaneous Notes Hello there! (Spoke with: Jared, spouse ) My name is LAVON Agudelo and I'm calling from [facility]. Your doctor wants to make sure you have the best care at home after leaving the hospital. Do you have a few minutes to chat about what to expect from home care? yes Before we start, have you received help from a home care company in the last 60 days? They might have assisted with things like bathing, medication, checking your blood pressure, or exercises. NO Our goal is to make your transition home smooth. A therapist (pick one- nurse or therapist ) will visit you within 2 days of leaving the hospital to get you started with home care. Is that okay with you? YES They'll contact you the night before or the morning of the visit to tell you when they'll arrive. Would you like them to call or text you? Text or call -Patient Great! What address will we be seeing you at? [address] [place] [address] Do you have any upcoming appointments or things we need to schedule around? Unsure When they call or text, the number might be unfamiliar or blocked. If they leave a message, please reply so we can plan your visit. Homecare helps with your recovery. During the first visit, the therapist (pick one- nurse or therapist) will talk with you, set goals, and plan your care. This visit might take one and a half to three hours. They'll figure out which services you need and how often they will see you. The purpose of homecare is to teach you or a family member or friend to manage your condition and provide any ordered treatments. Do you have someone to assist you at home? Spouse They'll need to see your discharge instructions and medication bottles for any medications you are taking, both prescription and over the counter. Can you have those ready? YES Any questions so far? NO We understand it's not easy having new people in your home while you're recovering. Our caregivers will treat you with dignity and respect, and we ask the same in return. The safety of our patients and caregivers is important to us. We ask that you put away and secure any animals or weapons in the home prior to our caregivers arriving. We also ask that you, or anyone else in the home, are not under the influence of any substances, refrain from raising your voice, using profanity, or being threatening or aggressive during visits. If you don't have questions, I have just one more. Did you get a flu shot this year? YES Where did you get it? [facility] LAVON Agudelo 04/26/2023 3:31 PM documented in this encounter [facility] 04-26-2023 Note HNO ID: [id number] Author: RISSA ALMEIDA SRNA Service: ? Author Type: Student Type: Anesthesia Procedure Notes Filed: 04/26/2023 08:06 Note Text: ANESTHESIOLOGY PROCEDURE NOTE PIV General Information Procedure Start Time/Medication Administration: 04/26/2023 7:55 AM Patient Location: OR Staffing SRNA: Rissa Almeida SRNA Performed by: NICKO Preparation Sterility Preparation: hand hygiene performed prior to procedure, surgical cap used, mask used, skin prep agent completely dried prior to procedure Sterility Technique Not Completely Performed Due to Extreme Emergency: No Site Prep: alcohol Procedure Details Indication: need for IV access Needle Size/Type: 18 gauge angiocath Orientation: Right Location: Hand Imaging Guidance Used: No SIGNATURE: NICKO Grewal PATIENT NAME: Mateo Bedoya DATE: April 26, 2023 TIME: 8:05 AM CSN: [id number] [facility] 04-26-2023 Note HNO ID: [id number] Author: RISSA ALMEIDA SRNA Service: ? 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 Anesthesiologist: Kami Anna MD SRNA: Rissa Almeida SRNA Performed by: NICKO Indications and Patient Condition Indications for airway management: anesthesia Preoxygenated: yes anesthesia circuit Patient position: sniffing Method: asleep Final Airway Details Final airway type: endotracheal airway Final Endotracheal Airway: ETT Cuffed: yes Successful intubation technique: video laryngoscopy Devices used: Mas Endotracheal tube insertion site: oral Blade size: #3 ETT size (mm): 7.0 Measured from: lips Measurement (cm): 21 Placement verified by: capnometry Cormack-Lehane Classification: grade I - full view of glottis Number of attempts at approach: 1 Failed airway: no Unrecognized esophageal intubation: no Airway not difficult SIGNATURE: NICKO Grewal PATIENT NAME: Mateo Bedoya DATE: April 26, 2023 TIME: 8:02 AM CSN: [id number] [facility] 04-05-2023 Note HNO ID: [id number] Author: ASHLEY GARCIA RN Service: ? Author Type: Registered Nurse Type: Progress Notes Filed: 04/05/2023 15:19 Note Text: M Telephonic Outreach Provider Action/FYI N/A Contacted for: Routine Telephonic Outreach Contact made with patient: Yes Patient identified by name and date of . Discussed care with patient Are you experiencing any new or worsening symptoms you need to talk about today? No Disease Specific Do you check your blood pressure at home? No Do you have new or worsening shortness of breath with activity? No Do you feel like you are dehydrated for any reason, including not being able to eat or drink normally, or having less urine/much darker urine than normal for you? No Do you check your daily weight at home? No Based on patient assessment coordinator, the following disposition is advised: No symptoms or symptoms present, not severe. Routed to: No Action Needed RUTHIE Education Provided this Outreach: No Mrs. Bedoya is preparing for her left hip replacement on 04/26/23. Prepping and freezing meals, getting paperwork in order. No questions or concerns at this time. Ashley Garcia RN April 05, 2023 3:18 PM [facility] 04-05-2023 Note Patient Outreach (AM [facility] ELKEMATEO Yahaira ([id number]) 1945 F Date Time Provider Department 04/05/23 ASHLEY GARCIA [facility] During your visit today, we recorded the following information about you: Ashley Garcia RN 04/05/2023 3:19 PM Signed [facility] Telephonic Outreach Provider Sapna/TAYA N/A Contacted for: Routine Telephonic Outreach Contact made with patient: Yes Patient identified by name and date of . Discussed care with patient Are you experiencing any new or worsening symptoms you need to talk about today? No Disease Specific Do you check your blood pressure at home? No Do you have new or worsening shortness of breath with activity? No Do you feel like you are dehydrated for any reason, including not being able to eat or drink normally, or having less urine/much darker urine than normal for you? No Do you check your daily weight at home? No Based on patient assessment coordinator, the following disposition is advised: No symptoms or symptoms present, not severe. Routed to: No Action Needed RUTHIE Education Provided this Outreach: No Mrs. Bedoya is preparing for her left hip replacement on 04/26/23. Prepping and freezing meals, getting paperwork in order. No questions or concerns at this time. Ashley Garcia RN April 05, 2023 3:18 PM Allergies As of Date: 04/05/2023 Noted Allergy Reaction bee stings and insect bites [Othe*12/13/2005 7 - Swelling PERCOCET (ACETAMINOPHEN) 05/10/2004 5 - Intolerance Comments: Increased and irregular heart rate PERCODAN (ASPIRIN) 05/10/2004 5 - Intolerance Comments: Increased and irregular heart rate CODEINE 05/10/2004 8 - GI Upset MORPHINE 05/10/2004 14 - Other: See Comments Comments: Pt is unable to sleep Date Reviewed: 01/15/2023 Reviewed by: Lindsey Martinez Ma - Fully Assessed Reason for Visit: Community Monitoring Outreach [Other] Cmt: 2nd attempt Telephonic Outreach CDM Home Monitoring Prescriptions as of 04/05/2023 - atorvastatin (LIPITOR) 80 mg tablet Take 1 tablet by mouth once daily. - oxybutynin ER (DITROPAN XL) 15 mg 24 hr Extended Rel Tab Take 1 tablet by mouth once daily. - clopidogrel (PLAVIX) 75 mg tablet Take 1 tablet by mouth once daily. - SYNTHROID 137 mcg tablet Take 1 tablet by mouth once daily. Take on empty stomach. For thyroid. - hydrOXYzine pamoate (VISTARIL) 25 mg capsule Take 1 capsule by mouth three times a day as needed for anxiety. - nitroglycerin sublingual (NITROSTAT) 0.4 mg SL tablet Dissolve 1 tablet under the tongue as needed. DISSOLVE ON TONGUE FOR CHEST PAIN. IF NO PAIN RELIEF, CALL 911 - calcium carbonate 195 mg calcium (500 mg) chew Take by mouth. - gabapentin (NEURONTIN) 300 mg capsule Take 2 capsules by mouth two times a day for 180 days. - atenolol (TENORMIN) 100 mg tablet Take 1 tablet by mouth twice daily. - triamcinolone (KENALOG) 0.025 % cream Apply 1 application to affected area twice daily. - hydroCHLOROthiazide (HYDRODIURIL, ESIDRIX) 12.5 mg capsule Take 1 capsule by mouth once daily. - EPINEPHrine (EPIPEN) 0.3 mg/0.3 mL auto-injector Use as directed - aspirin 325 mg tablet Take 1 tablet by mouth once daily. - ketoconazole (NIZORAL) 2 % cream Apply 1 application to affected area as needed. - losartan (COZAAR) 50 mg tablet Take 2 tablets by mouth once daily. - TUMS CALCIUM FOR LIFE BONE 750 MG ORAL CHEW Take (2) two per day. - MULTIVITAMIN TABLET Take one(1) tablet daily. Meds Comments as of 01/12/2022: Changed all Rx's to [facility]. 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] 05/10/2004 Essential hypertension, benign [I10] 12/16/2005 Elevated glucose [R73.09] 05/24/2012 Hypothyroidism [E03.9] 05/24/2012 Hyperlipidemia, mixed [E78.2] 05/24/2012 Female stress incontinence [N39.3] 08/23/2012 Acute medial meniscus tear of right knee [S83.2*10/23/2013 12/27/2020 Arthritis of knee, right [M17.11] 07/09/2014 Coronary artery disease involving [place] clay*01/09/2019 Carotid stenosis, asymptomatic, bilateral [I65.*10/02/2019 Carotid artery stenosis [I65.29] 10/21/2019 07/11/2021 Post-operative state [Z98.890] 10/22/2019 12/27/2020 GERD (gastroesophageal reflux disease) [K21.9] 01/13/2020 Prediabetes [R73.03] 01/13/2020 07/11/2021 Class 1 obesity due to excess calories with bod*01/13/2020 07/11/2021 Stage 3a chronic kidney disease [N18.31] 01/13/2020 Primary osteoarthritis of right hip [M16.11] 01/13/2020 OA (osteoarthritis) of hip [M16.9] 01/15/2020 Hypertensive kidney disease with stage 3a chron*12/27/2020 Type 2 diabetes mellitus with stage 3a chronic *12/27/2020 Carotid stenosis, left [I65.22] 07/19/2021 Encounter Status:Closed by ASHLEY GARCIA on 04/05/23 [facility] 04-04-2023 Note HNO ID: [id number] Author: ASHLEY GARCIA RN Service: ? Author Type: Registered Nurse Type: Progress Notes Filed: 04/04/2023 15:10 Note Text: CDM Telephonic Outreach Provider Action/FYI N/A Contacted for: Routine Telephonic Outreach Contact made with patient: Yes Patient identified by name and date of . Discussed care with patient-she is unable to talk right now. Requests call back tomorrow. [facility] 04-04-2023 Note Patient Outreach (AM [facility]) MATEO BEDOYA V ([id number]) 1945 F Date Time Provider Department 04/04/23 ASHLEY GARCIA During your visit today, we recorded the following information about you: Ashley Garcia RN 04/04/2023 3:10 PM Signed CD Telephonic Outreach Provider Action/TAYA N/A Contacted for: Routine Telephonic Outreach Contact made with patient: Yes Patient identified by name and date of . Discussed care with patient-she is unable to talk right now. Requests call back tomorrow. Allergies As of Date: 04/04/2023 Noted Allergy Reaction bee stings and insect bites [Othe*12/13/2005 7 - Swelling PERCOCET (ACETAMINOPHEN) 05/10/2004 5 - Intolerance Comments: Increased and irregular heart rate PERCODAN (ASPIRIN) 05/10/2004 5 - Intolerance Comments: Increased and irregular heart rate CODEINE 05/10/2004 8 - GI Upset MORPHINE 05/10/2004 14 - Other: See Comments Comments: Pt is unable to sleep Date Reviewed: 01/15/2023 Reviewed by: Lindsey Martinez Ma - Fully Assessed Reason for Visit: Community Monitoring Outreach [Other] Cmt: Telephonic Outreach CDM Home Monitoring Prescriptions as of 04/04/2023 - atorvastatin (LIPITOR) 80 mg tablet Take 1 tablet by mouth once daily. - oxybutynin ER (DITROPAN XL) 15 mg 24 hr Extended Rel Tab Take 1 tablet by mouth once daily. - clopidogrel (PLAVIX) 75 mg tablet Take 1 tablet by mouth once daily. - SYNTHROID 137 mcg tablet Take 1 tablet by mouth once daily. Take on empty stomach. For thyroid. - hydrOXYzine pamoate (VISTARIL) 25 mg capsule Take 1 capsule by mouth three times a day as needed for anxiety. - nitroglycerin sublingual (NITROSTAT) 0.4 mg SL tablet Dissolve 1 tablet under the tongue as needed. DISSOLVE ON TONGUE FOR CHEST PAIN. IF NO PAIN RELIEF, CALL 911 - calcium carbonate 195 mg calcium (500 mg) chew Take by mouth. - gabapentin (NEURONTIN) 300 mg capsule Take 2 capsules by mouth two times a day for 180 days. - atenolol (TENORMIN) 100 mg tablet Take 1 tablet by mouth twice daily. - triamcinolone (KENALOG) 0.025 % cream Apply 1 application to affected area twice daily. - hydroCHLOROthiazide (HYDRODIURIL, ESIDRIX) 12.5 mg capsule Take 1 capsule by mouth once daily. - EPINEPHrine (EPIPEN) 0.3 mg/0.3 mL auto-injector Use as directed - aspirin 325 mg tablet Take 1 tablet by mouth once daily. - ketoconazole (NIZORAL) 2 % cream Apply 1 application to affected area as needed. - losartan (COZAAR) 50 mg tablet Take 2 tablets by mouth once daily. - TUMS CALCIUM FOR LIFE BONE 750 MG ORAL CHEW Take (2) two per day. - MULTIVITAMIN TABLET Take one(1) tablet daily. Meds Comments as of 01/12/2022: Changed all Rx's to [facility]. 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] 05/10/2004 Essential hypertension, benign [I10] 12/16/2005 Elevated glucose [R73.09] 05/24/2012 Hypothyroidism [E03.9] 05/24/2012 Hyperlipidemia, mixed [E78.2] 05/24/2012 Female stress incontinence [N39.3] 08/23/2012 Acute medial meniscus tear of right knee [S83.2*10/23/2013 12/27/2020 Arthritis of knee, right [M17.11] 07/09/2014 Coronary artery disease involving [place]*01/09/2019 Carotid stenosis, asymptomatic, bilateral [I65.*10/02/2019 Carotid artery stenosis [I65.29] 10/21/2019 07/11/2021 Post-operative state [Z98.890] 10/22/2019 12/27/2020 GERD (gastroesophageal reflux disease) [K21.9] 01/13/2020 Prediabetes [R73.03] 01/13/2020 07/11/2021 Class 1 obesity due to excess calories with bod*01/13/2020 07/11/2021 Stage 3a chronic kidney disease [N18.31] 01/13/2020 Primary osteoarthritis of right hip [M16.11] 01/13/2020 OA (osteoarthritis) of hip [M16.9] 01/15/2020 Hypertensive kidney disease with stage 3a chron*12/27/2020 Type 2 diabetes mellitus with stage 3a chronic *12/27/2020 Carotid stenosis, left [I65.22] 07/19/2021 Encounter Status:Closed by ASHLEY GARCIA on 04/04/23 [facility] 03-12-2023 Miscellaneous Notes The following approved medication requests have been transmitted electronically. Requested Prescriptions Pending Prescriptions Disp Refills atorvastatin (LIPITOR) 80 mg tablet 90 tablet 3 Sig: Take 1 tablet by mouth once daily. Umesh Liz APRN.CNP Patient has been identified by name and date of : Yes, Provider Dr. Valle Patient phones for refill(s): Requested Prescriptions Pending Prescriptions Disp Refills atorvastatin (LIPITOR) 80 mg tablet 90 tablet 3 Sig: Take 1 tablet by mouth once daily. Date of last office visit in primary care: 01/15/23 Date of next office visit in primary care: 07/22/2022 Last 2 Encounter Wt Readings: Date: Wt: 01/15/2023 98.4 kg (217 lb) 10/02/2022 100.2 kg (221 lb) Previous labs/tests for medication: Cholesterol: HDL Cholesterol (mg/dL) Date Value 01/12/2023 30 12/22/2020 29 LDL Cholesterol (mg/dL) Date Value 01/12/2023 61 12/22/2020 67 ALT (U/L) Date Value 01/12/2023 18 12/22/2020 13 Non HDL Cholesterol (mg/dL) Date Value 01/12/2023 109 12/22/2020 98 Please advise. Thank you. Betty Onofre LPN. documented in this encounter [facility] 03-01-2023 Note Patient Outreach (AM [facility]) MATEO BEDOYA V ([id number]) 1945 F Date Time Provider Department 03/01/23 ASHLEY GARCIA [facility] During your visit today, we recorded the following information about you: Ashley Garcia RN 03/01/2023 11:34 AM Signed [facility] Telephonic Outreach Provider Sapna/TAYA N/A Contacted for: Routine Telephonic Outreach Contact made with patient: Yes Patient identified by name and date of . Discussed care with patient Are you experiencing any new or worsening symptoms you need to talk about today? No Disease Specific Do you check your blood pressure at home? Yes, Enter readings: 126/70. SpO2 98-99% Do you have new or worsening shortness of breath with activity? No Do you feel like you are dehydrated for any reason, including not being able to eat or drink normally, or having less urine/much darker urine than normal for you? No Do you check your daily weight at home? No Pt states she has decided to resume living her life (post her son's sudden passing last month). Her new normal is being the mother of one living child. She only needed the Vistaril to help her sleep/help with anxiety for 2 days. She has resumed going to organizational meetings. She is not attending grief counseling at this point but is friends with the head of [place] [facility] and also with the head of [facility]. She states can reach out to them if she feels grief counseling is needed. States she is having a left hip replacement with Dr. Shin on 04/26/23. Based on patient assessment coordinator, the following disposition is advised: No symptoms or symptoms present, not severe. Routed to: No Action Needed RUTHIE Education Provided this Outreach: Eugenia Garcia RN March 01, 2023 11:25 AM Allergies As of Date: 03/01/2023 Noted Allergy Reaction bee stings and insect bites [Othe*12/13/2005 7 - Swelling PERCOCET (ACETAMINOPHEN) 05/10/2004 5 - Intolerance Comments: Increased and irregular heart rate PERCODAN (ASPIRIN) 05/10/2004 5 - Intolerance Comments: Increased and irregular heart rate CODEINE 05/10/2004 8 - GI Upset MORPHINE 05/10/2004 14 - Other: See Comments Comments: Pt is unable to sleep Date Reviewed: 01/15/2023 Reviewed by: Lindsey Martinez Ma - Fully Assessed Reason for Visit: Community Monitoring Outreach [Other] Cmt: Telephonic Outreach CDM Home Monitoring Prescriptions as of 03/01/2023 - clopidogrel (PLAVIX) 75 mg tablet Take 1 tablet by mouth once daily. - SYNTHROID 137 mcg tablet Take 1 tablet by mouth once daily. Take on empty stomach. For thyroid. - hydrOXYzine pamoate (VISTARIL) 25 mg capsule Take 1 capsule by mouth three times a day as needed for anxiety. - nitroglycerin sublingual (NITROSTAT) 0.4 mg SL tablet Dissolve 1 tablet under the tongue as needed. DISSOLVE ON TONGUE FOR CHEST PAIN. IF NO PAIN RELIEF, CALL 911 - calcium carbonate 195 mg calcium (500 mg) chew Take by mouth. - gabapentin (NEURONTIN) 300 mg capsule Take 2 capsules by mouth two times a day for 180 days. - atenolol (TENORMIN) 100 mg tablet Take 1 tablet by mouth twice daily. - triamcinolone (KENALOG) 0.025 % cream Apply 1 application to affected area twice daily. - oxybutynin ER (DITROPAN XL) 15 mg 24 hr Extended Rel Tab Take 1 tablet by mouth once daily. - hydroCHLOROthiazide (HYDRODIURIL, ESIDRIX) 12.5 mg capsule Take 1 capsule by mouth once daily. - atorvastatin (LIPITOR) 80 mg tablet Take 1 tablet by mouth once daily. - EPINEPHrine (EPIPEN) 0.3 mg/0.3 mL auto-injector Use as directed - aspirin 325 mg tablet Take 1 tablet by mouth once daily. - ketoconazole (NIZORAL) 2 % cream Apply 1 application to affected area as needed. - losartan (COZAAR) 50 mg tablet Take 2 tablets by mouth once daily. - TUMS CALCIUM FOR LIFE BONE 750 MG ORAL CHEW Take (2) two per day. - MULTIVITAMIN TABLET Take one(1) tablet daily. Meds Comments as of 01/12/2022: Changed all Rx's to [facility]. 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] 05/10/2004 Essential hypertension, benign [I10] 12/16/2005 Elevated glucose [R73.09] 05/24/2012 Hypothyroidism [E03.9] 05/24/2012 Hyperlipidemia, mixed [E78.2] 05/24/2012 Female stress incontinence [N39.3] 08/23/2012 Acute medial meniscus tear of right knee [S83.2*10/23/2013 12/27/2020 Arthritis of knee, right [M17.11] 07/09/2014 Coronary artery disease involving k[place]en[place] clay*01/09/2019 Carotid stenosis, asymptomatic, bilateral [I65.*10/02/2019 Carotid artery stenosis [I65.29] 10/21/2019 07/11/2021 Post-operative state [Z98.890] 10/22/2019 12/27/2020 GERD (gastroesophageal reflux disease) [K21.9] 01/13/2020 Prediabetes [R73.03] 01/13/2020 07/11/2021 Class 1 obesity due to excess calories with bod*01/13/2020 07/11/2021 Stage 3a chronic kidney disease [N18.31] 01/13/2020 Primary osteoarthritis of right h (more content not included)... [facility] 03-01-2023 Note HNO ID: [id number] Author: Ashley Garcia RN Service: ? Author Type: Registered Nurse Type: Progress Notes Filed: 03/01/2023 11:34 AM Note Text: CDM Telephonic Outreach Provider Action/FYI N/A Contacted for: Routine Telephonic Outreach Contact made with patient: Yes Patient identified by name and date of . Discussed care with patient Are you experiencing any new or worsening symptoms you need to talk about today? No Disease Specific Do you check your blood pressure at home? Yes, Enter readings: 126/70. SpO2 98-99% Do you have new or worsening shortness of breath with activity? No Do you feel like you are dehydrated for any reason, including not being able to eat or drink normally, or having less urine/much darker urine than normal for you? No Do you check your daily weight at home? No Pt states she has decided to resume living her life (post her son's sudden passing last month). Her new normal is being the mother of one living child. She only needed the Vistaril to help her sleep/help with anxiety for 2 days. She has resumed going to organizational meetings. She is not attending grief counseling at this point but is friends with the head of [facility] counseling and also with the head of [facility]. She states can reach out to them if she feels grief counseling is needed. States she is having a left hip replacement with Dr. Shin on 04/26/23. Based on patient assessment coordinator, the following disposition is advised: No symptoms or symptoms present, not severe. Routed to: No Action Needed RUTHIE Education Provided this Outreach: Eugenia Garcia RN March 01, 2023 11:25 AM [facility] 03-01-2023 History of Present illness Narrative CDM Telephonic Outreach Provider Action/FYI N/A Contacted for: Routine Telephonic Outreach Contact made with patient: Yes Patient identified by name and date of . Discussed care with patient Are you experiencing any new or worsening symptoms you need to talk about today? No Disease Specific Do you check your blood pressure at home? Yes, Enter readings: 126/70. SpO2 98-99% Do you have new or worsening shortness of breath with activity? No Do you feel like you are dehydrated for any reason, including not being able to eat or drink normally, or having less urine/much darker urine than normal for you? No Do you check your daily weight at home? No Pt states she has decided to resume living her life (post her son's sudden passing last month). Her new normal is being the mother of one living child. She only needed the Vistaril to help her sleep/help with anxiety for 2 days. She has resumed going to organizational meetings. She is not attending grief counseling at this point but is friends with the head of [facility] counseling and also with the head of [facility]. She states can reach out to them if she feels grief counseling is needed. States she is having a left hip replacement with Dr. Shin on 04/26/23. Based on patient assessment coordinator, the following disposition is advised: No symptoms or symptoms present, not severe. Routed to: No Action Needed RUTHIE Education Provided this Outreach: No Ashley Garcia RN March 01, 2023 11:25 AM documented in this encounter [facility] 02-28-2023 Miscellaneous Notes The following approved medication requests have been transmitted electronically. Requested Prescriptions Pending Prescriptions Disp Refills clopidogrel (PLAVIX) 75 mg tablet 30 tablet 11 Sig: Take 1 tablet by mouth once daily. SYNTHROID 137 mcg tablet 90 tablet 3 Sig: Take 1 tablet by mouth once daily. Take on empty stomach. For thyroid. Umesh Liz APRN.MARTIN Patient has been identified by name and date of : Yes, Lindsay Irwin RN Date 02/28/2023 Time 11:07 am Patient phones for refill(s): Requested Prescriptions Pending Prescriptions Disp Refills hydrOXYzine pamoate (VISTARIL) 25 mg capsule 30 capsule 2 Sig: Take 1 capsule by mouth three times a day as needed for anxiety. clopidogrel (PLAVIX) 75 mg tablet 30 tablet 11 Sig: Take 1 tablet by mouth once daily. SYNTHROID 137 mcg tablet 90 tablet 3 Sig: Take 1 tablet by mouth once daily. Take on empty stomach. For thyroid. Date of last office visit in primary care: 01/15/2023 Date of next office visit in primary care: 07/23/2023 Last 2 Encounter Wt Readings: Date: Wt: 01/15/2023 98.4 kg (217 lb) 10/02/2022 100.2 kg (221 lb) Previous labs/tests for medication: Thyroid: TSH Date Value 01/12/2023 1.830 mIU/L 12/22/2020 3.220 uU/mL Blood Pressure: BUN (mg/dL) Date Value 01/12/2023 16 12/22/2020 24 Sodium (mmol/L) Date Value 01/12/2023 142 12/22/2020 142 Last 1 Encounter BP Readings: Date: BP: 01/15/2023 128/72 Liver Function: ALT (U/L) Date Value 01/12/2023 18 12/22/2020 13 AST (U/L) Date Value 01/12/2023 21 12/22/2020 14 Please advise. Thank you. Lindsay Irwin RN. documented in this encounter [facility] 02-21-2023 Miscellaneous Notes Patient notified to call [facility] since they manage medication [facility] verified in [facility] Patient has been identified by name and date of : Yes Patient aware RX will be sent to pharmacy. No need to notify patient. Patient phones for refill(s): Requested Prescriptions Pending Prescriptions Disp Refills losartan (COZAAR) 50 mg tablet 180 tablet 3 Sig: Take 2 tablets by mouth once daily. Date of last office visit : 01/15/2023 Date of next office visit : 07/23/2023 Last 2 Encounter Wt Readings: Date: Wt: 01/15/2023 98.4 kg (217 lb) 10/02/2022 100.2 kg (221 lb) Not applicable Please advise. Jamee Okeefe documented in this encounter [facility] 11-13-2023 Miscellaneous Notes Call to pt and notified her of message below from Provider. Pt's son was in [place] in Corporate meetings. Spoke with his brother and the night prior. 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 They went to the hotel and talked them into letting them in and found him in the bathroom, laying on the floor. He was 51 years old. There are complications with getting the body back with paperwork and filling out paperwork. Pt appreciates you sending in something for her. Lindsey Martinez Ma OK for Vistaril to help with anxiety and sleep Alejandra Valle MD Patient calling. Tearful. Asking for antianxiety medication to help her relax as well as sleep at night. Reports her son was found unresponsive last week and she has been anxious at times and unable to sleep at night. arrangements for her son are still being planned currently. Uses [facility]. Please call patient with update. Thank you. documented in this encounter [facility] 02-01-2023 Note HNO ID: [id number] Author: Ashley Garcia RN Service: ? Author Type: Registered Nurse Type: Progress Notes Filed: 02/01/2023 2:52 PM Note Text: CDM Telephonic Outreach Provider Action/FYI N/A Contacted for: Routine Telephonic Outreach Contact made with patient: Yes Patient identified by name and date of . Discussed care with patient-states she is not in a very good place right now-her 49 yo son was found in his hotel room by a collogue during a work conference in [place] yesterday. Deepest sympathy offered. Pt appreciative. States she is doing fine. Will reach out again to patient in 3-4 weeks. [facility] 02-01-2023 History of Present illness Narrative [facility] Telephonic Outreach Provider Sapna/TAYA N/A Contacted for: Routine Telephonic Outreach Contact made with patient: Yes Patient identified by name and date of . Discussed care with patient-states she is not in a very good place right now-her 49 yo son was found in his hotel room by a collogue during a work conference in [place] yesterday. Deepest sympathy offered. Pt appreciative. States she is doing fine. Will reach out again to patient in 3-4 weeks. documented in this encounter [facility] 02-01-2023 Note Patient Outreach ([facility] [place] MATEO BEDOYA V ([id number]) 1945 F Date Time Provider Department 02/01/23 ASHLEY GARCIA [facility] [place] your visit today, we recorded the following information about you: Ashley Garcia RN 02/01/2023 2:52 PM Signed [facility] Telephonic Outreach Provider Sapna/TAYA N/A Contacted for: Routine Telephonic Outreach Contact made with patient: Yes Patient identified by name and date of . Discussed care with patient-states she is not in a very good place right now-her 49 yo son was found in his hotel room by a collogue during a work conference in [place] yesterday. Deepest sympathy offered. Pt appreciative. States she is doing fine. Will reach out again to patient in 3-4 weeks. Allergies As of Date: 02/01/2023 Noted Allergy Reaction bee stings and insect bites [Othe*12/13/2005 7 - Swelling PERCOCET (ACETAMINOPHEN) 05/10/2004 5 - Intolerance Comments: Increased and irregular heart rate PERCODAN (ASPIRIN) 05/10/2004 5 - Intolerance Comments: Increased and irregular heart rate CODEINE 05/10/2004 8 - GI Upset MORPHINE 05/10/2004 14 - Other: See Comments Comments: Pt is unable to sleep Date Reviewed: 01/15/2023 Reviewed by: Lindsey Martinez Ma - Fully Assessed Reason for Visit: Community Monitoring Outreach [Other] Cmt: 2nd attempt Telephonic Outreach CDM Home Monitoring Prescriptions as of 02/01/2023 - nitroglycerin sublingual (NITROSTAT) 0.4 mg SL tablet Dissolve 1 tablet under the tongue as needed. DISSOLVE ON TONGUE FOR CHEST PAIN. IF NO PAIN RELIEF, CALL 911 - calcium carbonate 195 mg calcium (500 mg) chew Take by mouth. - gabapentin (NEURONTIN) 300 mg capsule Take 2 capsules by mouth two times a day for 180 days. - atenolol (TENORMIN) 100 mg tablet Take 1 tablet by mouth twice daily. - triamcinolone (KENALOG) 0.025 % cream Apply 1 application to affected area twice daily. - oxybutynin ER (DITROPAN XL) 15 mg 24 hr Extended Rel Tab Take 1 tablet by mouth once daily. - hydroCHLOROthiazide (HYDRODIURIL, ESIDRIX) 12.5 mg capsule Take 1 capsule by mouth once daily. - SYNTHROID 137 mcg tablet Take 1 tablet by mouth once daily. Take on empty stomach. For thyroid. - atorvastatin (LIPITOR) 80 mg tablet Take 1 tablet by mouth once daily. - clopidogrel (PLAVIX) 75 mg tablet Take 1 tablet by mouth once daily. - EPINEPHrine (EPIPEN) 0.3 mg/0.3 mL auto-injector Use as directed - aspirin 325 mg tablet Take 1 tablet by mouth once daily. - ketoconazole (NIZORAL) 2 % cream Apply 1 application to affected area as needed. - losartan (COZAAR) 50 mg tablet Take 2 tablets by mouth once daily. - TUMS CALCIUM FOR LIFE BONE 750 MG ORAL CHEW Take (2) two per day. - MULTIVITAMIN TABLET Take one(1) tablet daily. Meds Comments as of 01/12/2022: Changed all Rx's to [facility]. 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] 05/10/2004 Essential hypertension, benign [I10] 12/16/2005 Elevated glucose [R73.09] 05/24/2012 Hypothyroidism [E03.9] 05/24/2012 Hyperlipidemia, mixed [E78.2] 05/24/2012 Female stress incontinence [N39.3] 08/23/2012 Acute medial meniscus tear of right knee [S83.2*10/23/2013 12/27/2020 Arthritis of knee, right [M17.11] 07/09/2014 Coronary artery disease involving [place] clay*01/09/2019 Carotid stenosis, asymptomatic, bilateral [I65.*10/02/2019 Carotid artery stenosis [I65.29] 10/21/2019 07/11/2021 Post-operative state [Z98.890] 10/22/2019 12/27/2020 GERD (gastroesophageal reflux disease) [K21.9] 01/13/2020 Prediabetes [R73.03] 01/13/2020 07/11/2021 Class 1 obesity due to excess calories with bod*01/13/2020 07/11/2021 Stage 3a chronic kidney disease [N18.31] 01/13/2020 Primary osteoarthritis of right hip [M16.11] 01/13/2020 OA (osteoarthritis) of hip [M16.9] 01/15/2020 Hypertensive kidney disease with stage 3a chron*12/27/2020 Type 2 diabetes mellitus with stage 3a chronic *12/27/2020 Carotid stenosis, left [I65.22] 07/19/2021 Encounter Status:Closed by ASHLEY GARCIA on 02/01/23 [facility] 01-31-2023 Note Patient Outreach ([facility] [place] MATEO BEDOYA V ([id number]) 1945 F Date Time Provider Department 01/31/23 ASHLEY GARCIA [facility] [place] your visit today, we recorded the following information about you: Ashley Garcia RN 01/31/2023 12:04 PM Signed CDM Telephonic Outreach Provider Action/FYI N/A Contacted for: Routine Telephonic Outreach Pt requests q 2 month outreach calls. Contact made with patient: No, left message. Ashley Garcia RN January 31, 2023 12:03 PM Allergies As of Date: 01/31/2023 Noted Allergy Reaction bee stings and insect bites [Othe*12/13/2005 7 - Swelling PERCOCET (ACETAMINOPHEN) 05/10/2004 5 - Intolerance Comments: Increased and irregular heart rate PERCODAN (ASPIRIN) 05/10/2004 5 - Intolerance Comments: Increased and irregular heart rate CODEINE 05/10/2004 8 - GI Upset MORPHINE 05/10/2004 14 - Other: See Comments Comments: Pt is unable to sleep Date Reviewed: 01/15/2023 Reviewed by: Lindsey Martinez Ma - Fully Assessed Reason for Visit: Community Monitoring Outreach [Other] Cmt: Telephonic Outreach CDM Home Monitoring Prescriptions as of 01/31/2023 - nitroglycerin sublingual (NITROSTAT) 0.4 mg SL tablet Dissolve 1 tablet under the tongue as needed. DISSOLVE ON TONGUE FOR CHEST PAIN. IF NO PAIN RELIEF, CALL 911 - calcium carbonate 195 mg calcium (500 mg) chew Take by mouth. - gabapentin (NEURONTIN) 300 mg capsule Take 2 capsules by mouth two times a day for 180 days. - atenolol (TENORMIN) 100 mg tablet Take 1 tablet by mouth twice daily. - triamcinolone (KENALOG) 0.025 % cream Apply 1 application to affected area twice daily. - oxybutynin ER (DITROPAN XL) 15 mg 24 hr Extended Rel Tab Take 1 tablet by mouth once daily. - hydroCHLOROthiazide (HYDRODIURIL, ESIDRIX) 12.5 mg capsule Take 1 capsule by mouth once daily. - SYNTHROID 137 mcg tablet Take 1 tablet by mouth once daily. Take on empty stomach. For thyroid. - atorvastatin (LIPITOR) 80 mg tablet Take 1 tablet by mouth once daily. - clopidogrel (PLAVIX) 75 mg tablet Take 1 tablet by mouth once daily. - EPINEPHrine (EPIPEN) 0.3 mg/0.3 mL auto-injector Use as directed - aspirin 325 mg tablet Take 1 tablet by mouth once daily. - ketoconazole (NIZORAL) 2 % cream Apply 1 application to affected area as needed. - losartan (COZAAR) 50 mg tablet Take 2 tablets by mouth once daily. - TUMS CALCIUM FOR LIFE BONE 750 MG ORAL CHEW Take (2) two per day. - MULTIVITAMIN TABLET Take one(1) tablet daily. Meds Comments as of 01/12/2022: Changed all Rx's to [facility]. 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] 05/10/2004 Essential hypertension, benign [I10] 12/16/2005 Elevated glucose [R73.09] 05/24/2012 Hypothyroidism [E03.9] 05/24/2012 Hyperlipidemia, mixed [E78.2] 05/24/2012 Female stress incontinence [N39.3] 08/23/2012 Acute medial meniscus tear of right knee [S83.2*10/23/2013 12/27/2020 Arthritis of knee, right [M17.11] 07/09/2014 Coronary artery disease involving [place] clay*01/09/2019 Carotid stenosis, asymptomatic, bilateral [I65.*10/02/2019 Carotid artery stenosis [I65.29] 10/21/2019 07/11/2021 Post-operative state [Z98.890] 10/22/2019 12/27/2020 GERD (gastroesophageal reflux disease) [K21.9] 01/13/2020 Prediabetes [R73.03] 01/13/2020 07/11/2021 Class 1 obesity due to excess calories with bod*01/13/2020 07/11/2021 Stage 3a chronic kidney disease [N18.31] 01/13/2020 Primary osteoarthritis of right hip [M16.11] 01/13/2020 OA (osteoarthritis) of hip [M16.9] 01/15/2020 Hypertensive kidney disease with stage 3a chron*12/27/2020 Type 2 diabetes mellitus with stage 3a chronic *12/27/2020 Carotid stenosis, left [I65.22] 07/19/2021 Encounter Status:Closed by ASHLEY GARCIA on 01/31/23 [facility] 01-31-2023 Note HNO ID: [id number] Author: Ashley Garcia RN Service: ? Author Type: Registered Nurse Type: Progress Notes Filed: 01/31/2023 12:04 PM Note Text: [facility] Telephonic Outreach Provider Action/MODESTAI N/A Contacted for: Routine Telephonic Outreach Pt requests q 2 month outreach calls. Contact made with patient: No, left message. Ashley Garcia RN January 31, 2023 12:03 PM [facility] 01-31-2023 History of Present illness Narrative [facility] Telephonic Outreach Provider Action/MODESTAI N/A Contacted for: Routine Telephonic Outreach Pt requests q 2 month outreach calls. Contact made with patient: No, left message. Ashley Garcia RN January 31, 2023 12:03 PM documented in this encounter [facility] 01-15-2023 Note HNO ID: [id number] Author: Alejandra Valle MD Service: ? Author Type: Physician Type: Progress Notes Filed: 01/15/2023 1:33 PM Note Text: Chief Complaint Patient presents with: F/U 6 Month HPI Mateo Bedoya is a 77 year old female who presents here today for 6 month follow up. Here with Jared. 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 Overall reports doing fairly well other than her hip. No bowel, Gi, or urinary issues. Has OAB which she is treated with Ditropan xl 10 mg daily by [facility] Dr. Kent. Thyroid: Stable on current regimen of Synthroid 137 mcg daily. No missed dosages. DM: Does not check BS at home, no hypoglycemic episodes or neuropathy sx. Not taking any diabetic medications, tries to control with lifestyle. Does watch sugar, but does plan on cutting chocolate out of her diet more. Following with [facility] for DM eye exams. CAD/Lipid: Follows with Cardio at [facility] Dr. Davey. Is in a Trial Group for Vascular. Taking Plavix 75 mg daily, Lipitor 80 mg daily and ASA 325 mg daily. Tries to watch diet and exercise. Plans to work on cutting out chocolate in her diet more to help reduce levels more. HTN: Denies checking BP at home overall feels BP is stable on medications. Denies any chest pains, dizziness, or SOB. Taking Atenolol 100 mg BID, Losartan 50 mg 2 pills once daily and HCTZ 12.5 mg daily. Requests refill on Nitro due to hers expiring, last used in November of 2021. Pain: Controlled on Gabapentin 300 mg 2 pill BID. Will be having upcoming surgery for Left hip replacement with Dr. Shin in April. Reports having a large red spot about the size of her palm reaction after receiving RSV vaccine. HM - Received Covid, Flu and RSV vaccines. Asks about Pneumo vaccine if she needs anything. Past medical history, appointments, medications, allergies reviewed. Previous Medical History PAST MEDICAL HISTORY Diagnosis Date artery spasm causes CP, she has nitro Benign neoplasm of brain (HCC) 2004 meningioma Carotid stenosis, asymptomatic, bilateral 10/02/2019 Dysthymic disorder Essential hypertension, benign Herpes zoster 10/26 Impaired fasting glucose 03/31 Obesity, unspecified Other and unspecified hyperlipidemia Pessary maintenance Urinary incontinence Previous Surgical History PAST SURGICAL HISTORY Procedure Laterality Date EXTRACTION, ERUPTED TOOTH OR EXPOSED ROOT (ELEVATION AND/OR FORCEPS REMOVAL) Walker teeth LAPAROSCOPY SURG CHOLECYSTECTOMY 90s Cholecystectomy, lap OOPHORECTOMY PARTIAL/TOTAL UNI/BI 80s Oophorectomy PAST SURGICAL HISTORY OF 80s 10 surgeries 14 abd tumors, all benign PAST SURGICAL HISTORY OF 12/16/2015 Dr. Reinoso, skin lesion removed PAST SURGICAL HISTORY OF Right 07/04/2016 right breast needle biopsy, benign - Dr. Reinoso PAST SURGICAL HISTORY OF N/A 05/23/2018 4 stents placed by [facility] PAST SURGICAL HISTORY OF N/A 08/14/2018 5th stent placed by [facility] PAST SURGICAL HISTORY OF Right right upper tooth implant PAST SURGICAL HISTORY OF 2021 Stent placed in Left Carotid Artery THYROIDECTOMY TOTAL/COMPLETE 2003 large nodule. Complete TOTAL ABDOMINAL HYSTERECT W/WO RMVL TUBE OVARY 80s Hysterectomy, BING TOTAL HIP JOINT REPLACEMENT Right 01/15/2020 [facility] Family History FAMILY HISTORY Problem Relation Age of Onset Allergies Mother Cancer Mother thyroid Allergies Father Heart Father Diabetes Father Diabetes Brother Diabetes Maternal Aunt Cervical Cancer Paternal Grandmother Patient Allergies ALLERGIES Allergen Reactions Bee Stings And Inse* Swelling Percocet [Acetamino* Intolerance Increased and irregular heart rate Percodan [Aspirin] Intolerance Increased and irregular heart rate Codeine GI Upset Morphine Other: See Comments Pt is unable to sleep Current Medications Current Outpatient Medications on File Prior to Visit Medication Sig aspirin 325 mg tablet Take 1 tablet by mouth once daily. atenolol (TENORMIN) 100 mg tablet Take 1 tablet by mouth twice daily. atorvastatin (LIPITOR) 80 mg tablet Take 1 tablet by mouth once daily. clopidogrel (PLAVIX) 75 mg tablet Take 1 tablet by mouth once daily. EPINEPHrine (EPIPEN) 0.3 mg/0.3 mL auto-injector Use as directed gabapentin (NEURONTIN) 300 mg capsule Take 2 capsules by mouth two times a day for 180 days. hydroCHLOROthiazide (HYDRODIURIL, ESIDRIX) 12.5 mg capsule Take 1 capsule by mouth once daily. ketoconazole (NIZORAL) 2 % cream Apply 1 application to affected area as needed. losartan (COZAAR) 50 mg tablet Take 2 tablets by mouth once daily. MULTIVITAMIN TABLET Take one(1) tablet daily. nitroglycerin sublingual (NITROSTAT) 0.4 mg SL tablet Dissolve 1 tablet under the tongue as needed. DISSOLVE ON TONGUE FOR CHEST PAIN. IF NO PAIN RELIEF, CALL 911 oxybutynin ER (DITROPAN XL) 15 mg 24 hr Extended Rel Tab Take 1 tablet by mouth once daily (more content not included)... [facility] 01-15-2023 History of Present illness Narrative Chief Complaint Patient presents with: F/U 6 Month HPI Mateo Bedoya is a 77 year old female who presents here today for 6 month follow up. Here with Jared. 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 Overall reports doing fairly well other than her hip. No bowel, Gi, or urinary issues. Has OAB which she is treated with Ditropan xl 10 mg daily by [facility] Dr. Kent. Thyroid: Stable on current regimen of Synthroid 137 mcg daily. No missed dosages. DM: Does not check BS at home, no hypoglycemic episodes or neuropathy sx. Not taking any diabetic medications, tries to control with lifestyle. Does watch sugar, but does plan on cutting chocolate out of her diet more. Following with [facility] for DM eye exams. CAD/Lipid: Follows with Cardio at [facility] Dr. Daevy. Is in a Trial Group for Vascular. Taking Plavix 75 mg daily, Lipitor 80 mg daily and ASA 325 mg daily. Tries to watch diet and exercise. Plans to work on cutting out chocolate in her diet more to help reduce levels more. HTN: Denies checking BP at home overall feels BP is stable on medications. Denies any chest pains, dizziness, or SOB. Taking Atenolol 100 mg BID, Losartan 50 mg 2 pills once daily and HCTZ 12.5 mg daily. Requests refill on Nitro due to hers expiring, last used in November of 2021. Pain: Controlled on Gabapentin 300 mg 2 pill BID. Will be having upcoming surgery for Left hip replacement with Dr. Shin in April. Reports having a large red spot about the size of her palm reaction after receiving RSV vaccine. HM - Received Covid, Flu and RSV vaccines. Asks about Pneumo vaccine if she needs anything. Past medical history, appointments, medications, allergies reviewed. Previous Medical History PAST MEDICAL HISTORY Diagnosis Date artery spasm causes CP, she has nitro Benign neoplasm of brain (HCC) 2004 meningioma Carotid stenosis, asymptomatic, bilateral 10/02/2019 Dysthymic disorder Essential hypertension, benign Herpes zoster 10/26 Impaired fasting glucose 03/31 Obesity, unspecified Other and unspecified hyperlipidemia Pessary maintenance Urinary incontinence Previous Surgical History PAST SURGICAL HISTORY Procedure Laterality Date EXTRACTION, ERUPTED TOOTH OR EXPOSED ROOT (ELEVATION AND/OR FORCEPS REMOVAL) Walker teeth LAPAROSCOPY SURG CHOLECYSTECTOMY 90s Cholecystectomy, lap OOPHORECTOMY PARTIAL/TOTAL UNI/BI 80s Oophorectomy PAST SURGICAL HISTORY OF 80s 10 surgeries 14 abd tumors, all benign PAST SURGICAL HISTORY OF 12/16/2015 Dr. Reinoso, skin lesion removed PAST SURGICAL HISTORY OF Right 07/04/2016 right breast needle biopsy, benign - Dr. Reinoso PAST SURGICAL HISTORY OF N/A 05/23/2018 4 stents placed by [facility] PAST SURGICAL HISTORY OF N/A 08/14/2018 5th stent placed by [facility] PAST SURGICAL HISTORY OF Right right upper tooth implant PAST SURGICAL HISTORY OF 2021 Stent placed in Left Carotid Artery THYROIDECTOMY TOTAL/COMPLETE 2003 large nodule. Complete TOTAL ABDOMINAL HYSTERECT W/WO RMVL TUBE OVARY 80s Hysterectomy, BING TOTAL HIP JOINT REPLACEMENT Right 01/15/2020 [facility] Family History FAMILY HISTORY Problem Relation Age of Onset Allergies Mother Cancer Mother thyroid Allergies Father Heart Father Diabetes Father Diabetes Brother Diabetes Maternal Aunt Cervical Cancer Paternal Grandmother Patient Allergies ALLERGIES Allergen Reactions Bee Stings And Inse* Swelling Percocet [Acetamino* Intolerance Increased and irregular heart rate Percodan [Aspirin] Intolerance Increased and irregular heart rate Codeine GI Upset Morphine Other: See Comments Pt is unable to sleep Current Medications Current Outpatient Medications on File Prior to Visit Medication Sig aspirin 325 mg tablet Take 1 tablet by mouth once daily. atenolol (TENORMIN) 100 mg tablet Take 1 tablet by mouth twice daily. atorvastatin (LIPITOR) 80 mg tablet Take 1 tablet by mouth once daily. clopidogrel (PLAVIX) 75 mg tablet Take 1 tablet by mouth once daily. EPINEPHrine (EPIPEN) 0.3 mg/0.3 mL auto-injector Use as directed gabapentin (NEURONTIN) 300 mg capsule Take 2 capsules by mouth two times a day for 180 days. hydroCHLOROthiazide (HYDRODIURIL, ESIDRIX) 12.5 mg capsule Take 1 capsule by mouth once daily. ketoconazole (NIZORAL) 2 % cream Apply 1 application to affected area as needed. losartan (COZAAR) 50 mg tablet Take 2 tablets by mouth once daily. MULTIVITAMIN TABLET Take one(1) tablet daily. nitroglycerin sublingual (NITROSTAT) 0.4 mg SL tablet Dissolve 1 tablet under the tongue as needed. DISSOLVE ON TONGUE FOR CHEST PAIN. IF NO PAIN RELIEF, CALL 911 oxybutynin ER (DITROPAN XL) 15 mg 24 hr Extended Rel Tab Take 1 tablet by mouth once daily. SYNTHROID 137 mcg tablet Take 1 tablet by mouth once daily. Take on empty stomach. For thyroid. triamcinolone (KENALOG) 0.025 % cream Apply 1 application to affected area twice daily. TUMS CALCIUM FOR LIFE BONE 750 MG ORAL CHEW Take (2) two per day. No current facility-administered medications on file prior to visit. Social History Social History Tobacco Use Smoking status: Never Passive exposure: Past Smokeless tobacco: Never Vaping Use Vaping Use: Never used Substance Use Topics Alcohol use: Yes Comment: very rarely/ twice per year Drug use: No EXAM: BP 128/72 (BP Site: Left Arm, BP Position: Sitting, BP Cuff Size: Regular Adult) Pulse 72 Resp 16 Wt 98.4 kg (217 lb) LMP (LMP Unknown) BMI 33.49 kg/m General Appearance: Well appearing, alert, in no acute distress, well-hydrated, well nourished. and Overweight. Neck: Supple, no adenopathy; thyroid symmetric, normal size, no bruits. Lungs: Lungs clear to auscultation. No wheezing, rhonchi, rales.. Heart: RRR without murmur, gallop, or rubs. No ectopy. Health Maintenance List Diabetic Foot Exam Never done Dilated Retinal Exam due on 08/03/2021 Urine Albumin:Creatinine Ratio due on 07/07/2022 Colorectal Cancer Screening due on 08/03/2022 Influenza Vaccine(1) due on 11/24/2022 Covid-19 Vaccine( season) due on 11/24/2022 HbA1C due on 01/09/2023 LDL Cholesterol due on 07/11/2023 Serum Creatinine due on 07/11/2023 Annual PCP Team Chronic Disease Visit due on 07/15/2023 BP Controlled (<130/80) due on 10/03/2023 DTaP,Tdap,Td Vaccine(3 - Td or Tdap) due on 10/12/2026 Bone Density Screening Completed Advance Directive Discussion Completed Depression Assessment Completed Hepatitis C Screening Completed Shingrix Vaccine Completed Pneumococcal Vaccine: 65+ Completed Mammogram Screening Discontinued Data reviewed Appointment on 01/12/2023 Component Date Value Protein, Total 01/12/2023 6.5 Albumin 01/12/2023 4.0 Calcium, Total 01/12/2023 9.6 Bilirubin, Total 01/12/2023 0.4 Alkaline Phosphatase 01/12/2023 115 AST 01/12/2023 21 ALT 01/12/2023 18 Glucose 01/12/2023 149 (H) BUN 01/12/2023 16 Creatinine 01/12/2023 0.91 Sodium 01/12/2023 142 Potassium 01/12/2023 4.0 Chloride 01/12/2023 105 CO2 01/12/2023 27 Anion Gap 01/12/2023 10 Estimated Glomerular Rainer* 01/12/2023 66 Cholesterol, Total 01/12/2023 139 Triglyceride 01/12/2023 242 (H) HDL Cholesterol 01/12/2023 30 (L) Non HDL Cholesterol 01/12/2023 109 Fasting Time 01/12/2023 15 VLDL Cholesterol 01/12/2023 48 (H) TC:HDL Ratio 01/12/2023 4.63 LDL Cholesterol 01/12/2023 61 LDL:HDL Ratio 01/12/2023 2.03 Hemoglobin A1C 01/12/2023 7.4 (H) Estimated Average Glucose 01/12/2023 166 TSH 01/12/2023 1.830 ASSESSMENT/PLAN: 1. Essential hypertension, benign - ICD9: 401.1, ICD10: I10 (primary diagnosis) - Controlled - Continue current medications - Recommend home blood pressure monitoring, to bring results to next visit - Encouraged sodium restriction, DASH or Mediterranean diet - Recommend regular aerobic exercise - COMP METABOLIC PANEL - LIPID PANEL BASIC - CBC + DIFF 2. Hyperlipidemia, mixed - ICD9: 272.2, ICD10: E78.2 - Stable - Counseled on healthy diet and regular exercise - COMP METABOLIC PANEL - LIPID PANEL BASIC 3. Type 2 diabetes mellitus with stage 3a chronic kidney disease, without long-term current use of insulin (HCC) - ICD9: 250.40, 585.3, ICD10: E11.22, N18.31 - Worsening control, but has been in the 7.0 in the past - Counseled on healthy diet and regular exercise. Discussed cutting down on sweets. - COMP METABOLIC PANEL - LIPID PANEL BASIC - HGB A1C 4. Acquired hypothyroidism - ICD9: 244.9, ICD10: E03.9 - Instructed patient on importance of taking on an empty stomach either first thing in the morning or at bedtime. - check TSH in 6 months - TSH BLD 5. Overactive bladder - ICD9: 596.51, ICD10: N32.81 - Stable - Continue current medication regimen. 6. Nerve pain - ICD9: 729.2, ICD10: M79.2 - Stable - Continue current medication regimen. 7. Coronary artery disease involving [place] coronary artery of [place] heart, unspecified whether angina present - ICD9: 414.01, ICD10: I25.10 - Stable - Continue current medication regimen. - NITROGLYCERIN 0.4 MG SUBLINGUAL TABLET - COMP METABOLIC PANEL - LIPID PANEL BASIC 8. Benign neoplasm of cerebral meninges (HCC) - ICD9: 225.2, ICD10: D32.0 - Continue current medication regimen. 6 mo f/u with labs. I agree with the Chief Complaint, ROS, and Past Histories independently gathered by the clinical learning support services director and the remaining scribed note accurately describes my personal service to the patient. Medical Decision Making: Problems: Moderate: 2+ stable chronic illnesses Data: Unique test result(s) reviewed: 3+ Risk: Moderate: Drug management Medical Decision Making Level: 4 - Moderate Alejandra Valle MD The documentation for this note was completed by Lindsey Martinez Ma acting as scribe for Alejandra Valle MD. January 15, 2023 12:29 PM. Lindsey Martinez Ma documented in this encounter [facility] 01-08-2023 Note HNO ID: [id number] Author: Dixie Shin MD Service: ? Author Type: Physician Type: Progress Notes Filed: 01/08/2023 10:35 AM Note Text: Established Patient Ortho Hip Consult Note ASSESSMENT AND PLAN: Impression: Left Hip Severe Degenerative Osteoarthritis, Primary Mateo Bedoya has radiograph and physical exam evidence of degenerative joint disease and wishes to pursue surgery. This patient appears to have sufficient symptoms to warrant surgical intervention and is an appropriate candidate for left Primary Total Hip Arthroplasty as evidenced by six months of unsuccessful non-operative treatment as outlined in the HPI below and progressive symptoms. Progressive symptoms include: Pain impacting sleep or causing fatigue Pain impacting work Pain worsened by weight bearing Pain effecting living situation Pain limiting ability to stay fit and healthy Unable to ambulate 2 blocks without significant pain and dysfunction. We had a lengthy discussion regarding the risk and benefit of surgery, the alternatives, limitations and personnel involved. These included but were not limited to infection, persistent pain, instability, nerve injury, blood clots, and medical complications. We also discussed the pre-operative course, surgery itself and rehabilitation. Tatyana-operative blood management and transfusion issues were discussed, and options clearly outlined. The patient has consented to the use of the banked allogenic blood if medically necessary. The patient has elected to schedule surgery at this time or intends to call the office with a surgical date. Shared decision making occurred while obtaining informed consent. The patient will be scheduled for a pre-operative education class at which time they will have their nasal swab completed and will be given CHG cloths along with the verbal and written instructions for their use. Patient has been instructed and has been scheduled or will call to schedule attendence in one of the total joint perioperative classes offered prior to proceeding with JOE.. CONSULTS: IMPACT/PACE Consult for preoperative clearance. ACTIVE PROBLEM LIST Benign Neoplasm of Brain (Hcc) Essential Hypertension, Benign Elevated Glucose Hypothyroidism Hyperlipidemia, Mixed Female Stress Incontinence Arthritis of Knee, Right Coronary Artery Disease Involving [place] Coronary Artery of [place] Heart Carotid Stenosis, Asymptomatic, Bilateral Gerd (Gastroesophageal Reflux Disease) Stage 3a Chronic Kidney Disease (Hcc) Primary Osteoarthritis of Right Hip Oa (Osteoarthritis) of Hip Hypertensive Kidney Disease With Stage 3a Chronic Kidney Disease (Hcc) Type 2 Diabetes Mellitus With Stage 3a Chronic Kidney Disease, Without Long-Term Current Use of Insulin (Hcc) Carotid Stenosis, Left SUBJECTIVE CHIEF COMPLAINT: Hip Pain HPI: Mateo Bedoya is a 77 year old patient here for evaluation and management of Left hip pain. Patient has had progressive problems with the hip(s) constantly over the past 1 year(s) interfering with activities which include walking 2 blocks, enjoying hobbies, exercise, rising from a sitting position, getting in and out of a car, dressing, and climbing stairs. The problem began limiting activities 1-3 years ago. Currently the pain in the joint is rated at 5 out of 10 with minimal activity. The pain is chronic and constant and is located in the left hip and groin. The pain is described as aching. Relieving factors include no relieving factors. There is no specific incident that brought about this pain. PREVIOUS TREATMENTS: Attempted Weight Loss Medical: OTC NSAIDS for 3 Months or Greater (Tylenol / acetaminophen and ASA) Physical Therapy: Use of Ambulatory Aid, Activities Modified, and PT Three Months or Greater 1-2 times per week Risk Factors for Total Joint Arthroplasty (TJA) Obesity Moderate Risk High: BMI > 40 Moderate: BMI 30-40 Normal: BMI < 30 Diabetes Moderate Risk High: A1C > 8 Moderate: A1C 7-8 Normal: A1C < 7 Smoking normal High: Current smoker Normal: Non smoker Anemia normal High: Hgb < 11.5 (women) N/A: Hgb >= 11.5 (women) Nutritional Status normal High: Alb<3.4, or prealb<15, or serum transferrin<200, or total lymphocyte count<1500 Normal: normal labs COPD normal High: dx of COPD Normal: no dx of COPD MRSA normal High: dx of MRSA or positive lab test Normal: no MRSA CKD normal High: eGFR<60 Moderate: eGFR 60-89 Normal: eGFR>90 Hx of DVT / PE normal High: dx of DVT / PE Normal: no dx of DVT / PE Narcotics Use normal High:NarxCare >=300 Moderate: 100-299 Normal: 0-99 ADIS normal High: dx of ADIS N/A: no dx of ADIS Coagulation normal High:PT Sec>13, or PT INR>1.3, or APTT>32.4, or Plt ct<150k Moderate: on anticoag but none of the above Normal: none Obesity: weight management recommended BMI Readings from Last 3 Encounters: 10/02/22 : 34.10 kg/m? 09/11/22 : 33.89 kg/m? 08/31/22 : 3 (more content not included)... [facility] 01-08-2023 Note HNO ID: [id number] Author: Lucrecia Chandler RT(R) Service: ? Author Type: Technologist Type: Progress Notes Filed: 01/08/2023 8:36 AM Note Text: Radiology Service Progress Note PATIENT NAME: Mateo Bedoya DATE OF SERVICE: January 08, 2023 TIME: 8:35 AM PATIENT IDENTITY VERIFICATION COMPLETED USING TWO (2) IDENTIFIERS: Name and Date of confirmed by patient verbally. FALL SCREENING: Has the patient had 2 falls in the last year or 1 fall with injury or currently using an Ambulatory Assistive Device (Walker, Cane, Wheelchair, Crutches, etc.)? No PATIENT GENDER DATA: Female. status: : No status: NO. PATIENT RELEVANT IMPLANT DATA REVIEWED: Not Applicable RADIOLOGY DEPARTMENT: General X-ray: Exam(s) Completed: Pelvis X-Ray: Pelvis with Hip Left PERIPHERAL IV DATA: Not applicable SIGNED BY: RT Jonathan(R) January 08, 2023 8:35 AM [facility] 01-08-2023 History of Present illness Narrative Established Patient Ortho Hip Consult Note ASSESSMENT & PLAN: Impression: Left Hip Severe Degenerative Osteoarthritis, Primary Mateo Bedoya has radiograph and physical exam evidence of degenerative joint disease and wishes to pursue surgery. This patient appears to have sufficient symptoms to warrant surgical intervention and is an appropriate candidate for left Primary Total Hip Arthroplasty as evidenced by six months of unsuccessful non-operative treatment as outlined in the HPI below and progressive symptoms. Progressive symptoms include: Pain impacting sleep or causing fatigue Pain impacting work Pain worsened by weight bearing Pain effecting living situation Pain limiting ability to stay fit and healthy Unable to ambulate 2 blocks without significant pain and dysfunction. We had a lengthy discussion regarding the risk and benefit of surgery, the alternatives, limitations and personnel involved. These included but were not limited to infection, persistent pain, instability, nerve injury, blood clots, and medical complications. We also discussed the pre-operative course, surgery itself and rehabilitation. Tatyana-operative blood management and transfusion issues were discussed, and options clearly outlined. The patient has consented to the use of the banked allogenic blood if medically necessary. The patient has elected to schedule surgery at this time or intends to call the office with a surgical date. Shared decision making occurred while obtaining informed consent. The patient will be scheduled for a pre-operative education class at which time they will have their nasal swab completed and will be given CHG cloths along with the verbal and written instructions for their use. Patient has been instructed and has been scheduled or will call to schedule attendence in one of the total joint perioperative classes offered prior to proceeding with JOE.. CONSULTS: IMPACT/PACE Consult for preoperative clearance. ACTIVE PROBLEM LIST Benign Neoplasm of Brain (Hcc) Essential Hypertension, Benign Elevated Glucose Hypothyroidism Hyperlipidemia, Mixed Female Stress Incontinence Arthritis of Knee, Right Coronary Artery Disease Involving [place] Coronary Artery of [place] Heart Carotid Stenosis, Asymptomatic, Bilateral Gerd (Gastroesophageal Reflux Disease) Stage 3a Chronic Kidney Disease (Hcc) Primary Osteoarthritis of Right Hip Oa (Osteoarthritis) of Hip Hypertensive Kidney Disease With Stage 3a Chronic Kidney Disease (Hcc) Type 2 Diabetes Mellitus With Stage 3a Chronic Kidney Disease, Without Long-Term Current Use of Insulin (Hcc) Carotid Stenosis, Left SUBJECTIVE CHIEF COMPLAINT: Hip Pain HPI: Mateo Bedoya is a 77 year old patient here for evaluation and management of Left hip pain. Patient has had progressive problems with the hip(s) constantly over the past 1 year(s) interfering with activities which include walking 2 blocks, enjoying hobbies, exercise, rising from a sitting position, getting in and out of a car, dressing, and climbing stairs. The problem began limiting activities 1-3 years ago. Currently the pain in the joint is rated at 5 out of 10 with minimal activity. The pain is chronic and constant and is located in the left hip and groin. The pain is described as aching. Relieving factors include no relieving factors. There is no specific incident that brought about this pain. PREVIOUS TREATMENTS: Attempted Weight Loss Medical: OTC NSAIDS for 3 Months or Greater (Tylenol / acetaminophen and ASA) Physical Therapy: Use of Ambulatory Aid, Activities Modified, and PT Three Months or Greater 1-2 times per week Risk Factors for Total Joint Arthroplasty (TJA) Obesity Moderate Risk High: BMI > 40 Moderate: BMI 30-40 Normal: BMI < 30 Diabetes Moderate Risk High: A1C > 8 Moderate: A1C 7-8 Normal: A1C < 7 Smoking normal High: Current smoker Normal: Non smoker Anemia normal High: Hgb < 11.5 (women) N/A: Hgb >= 11.5 (women) Nutritional Status normal High: Alb<3.4, or prealb<15, or serum transferrin<200, or total lymphocyte count<1500 Normal: normal labs COPD normal High: dx of COPD Normal: no dx of COPD MRSA normal High: dx of MRSA or positive lab test Normal: no MRSA CKD normal High: eGFR<60 Moderate: eGFR 60-89 Normal: eGFR>90 Hx of DVT / PE normal High: dx of DVT / PE Normal: no dx of DVT / PE Narcotics Use normal High:NarxCare >=300 Moderate: 100-299 Normal: 0-99 ADIS normal High: dx of ADIS N/A: no dx of ADIS Coagulation normal High:PT Sec>13, or PT INR>1.3, or APTT>32.4, or Plt ct<150k Moderate: on anticoag but none of the above Normal: none Obesity: weight management recommended BMI Readings from Last 3 Encounters: 10/02/22 : 34.10 kg/m 09/11/22 : 33.89 kg/m 08/31/22 : 33.47 kg/m Diabetes: Well controlled - Mateo has been diagnosed with Type 2 Diabetes. Her last Hemoglobin A1C was 6.8 (07/10/2022). Pt is followed by Alejandra Valle for Type 2 Diabetes - last seen on 07/14/2022. PHYSICAL EXAM LMP (LMP Unknown) All other systems deferred. GENERAL: Obese HABITUS: Obese GAIT: Antalgic to the left HIP EXAM: Left: ROM: Extension: slight flexion contracture Flexion: 100 degrees Internal Rotation: 5 degrees External Rotation: 15 degrees Abduction: 10 degrees Adduction: 10 degrees Strength: Pain with resisted abduction and Pain with resisted hip flexion Palpation: No tenderness Log roll: painful. Straight leg raise: Negative Neurovascular Status: Sensation Intact and Moves foot and ankle up & down DATA: Diagnostic tests reviewed for today's visit: Left hip X-Ray: Severe degenerative changes SIGNATURE: Dixie Shin MD PATIENT NAME: Mateo Bedoya DATE: January 08, 2023 TIME: 9:34 AM I personally evaluated this patient and agree with the note from the nurse/resident/fellow including PMH, PSH, SH, meds, allergies, and review of systems. I completed the HPI and performed the physical exam. Additionally I reviewed available imaging and wrote my interpretation. I wrote the Assessment and Plan. documented in this encounter [facility] 01-08-2023 History of Present illness Narrative Radiology Service Progress Note PATIENT NAME: Mateo Bedoya DATE OF SERVICE: January 08, 2023 TIME: 8:35 AM PATIENT IDENTITY VERIFICATION COMPLETED USING TWO (2) IDENTIFIERS: Name and Date of confirmed by patient verbally. FALL SCREENING: Has the patient had 2 falls in the last year or 1 fall with injury or currently using an Ambulatory Assistive Device (Walker, Cane, Wheelchair, Crutches, etc.)? No PATIENT GENDER DATA: Female. status: : No status: NO. PATIENT RELEVANT IMPLANT DATA REVIEWED: Not Applicable RADIOLOGY DEPARTMENT: General X-ray: Exam(s) Completed: Pelvis X-Ray: Pelvis with Hip Left PERIPHERAL IV DATA: Not applicable SIGNED BY: RT Jonathan(José Miguel) January 08, 2023 8:35 AM documented in this encounter [facility] 01-04-2023 Note HNO ID: [id number] Author: Ashley Garcia RN Service: ? Author Type: Registered Nurse Type: Progress Notes Filed: 01/04/2023 2:00 PM Note Text: Care Coordination Deferred Outreach Provider Action / FYI: N/A Deferred outreach to patient at this time due to: Chart Review Only Last outreach 12/06/22. Pt now requesting q 2 month outreaches. Did not contact patient today. Next Outreach date: 02/01/23 Ashley Garcia RN January 04, 2023 1:59 PM [facility] 01-04-2023 Note Patient Outreach (AM [facility]) MATEO BEDOYA V ([id number]) 1945 F Date Time Provider Department 01/04/23 ASHLEY GARCIA During your visit today, we recorded the following information about you: Ashley Garcia RN 01/04/2023 2:00 PM Signed Care Coordination Deferred Outreach Provider Action / FYI: N/A Deferred outreach to patient at this time due to: Chart Review Only Last outreach 12/06/22. Pt now requesting q 2 month outreaches. Did not contact patient today. Next Outreach date: 02/01/23 Ashley Garcia RN January 04, 2023 1:59 PM Allergies As of Date: 01/04/2023 Noted Allergy Reaction bee stings and insect bites [Othe*12/13/2005 7 - Swelling CODEINE 05/10/2004 8 - GI Upset MORPHINE 05/10/2004 14 - Other: See Comments Comments: Pt is unable to sleep PERCOCET (ACETAMINOPHEN) 05/10/2004 5 - Intolerance Comments: Increased and irregular heart rate PERCODAN (ASPIRIN) 05/10/2004 5 - Intolerance Comments: Increased and irregular heart rate Date Reviewed: 10/02/2022 Reviewed by: Janice Anderson - Fully Assessed Reason for Visit: Community Monitoring Outreach [Other] Cmt: Telephonic Outreach CDM Home Monitoring Prescriptions as of 01/04/2023 - aspirin 325 mg tablet Take 1 tablet by mouth once daily. - atenolol (TENORMIN) 100 mg tablet Take 1 tablet by mouth twice daily. - atorvastatin (LIPITOR) 80 mg tablet Take 1 tablet by mouth once daily. - clopidogrel (PLAVIX) 75 mg tablet Take 1 tablet by mouth once daily. - EPINEPHrine (EPIPEN) 0.3 mg/0.3 mL auto-injector Use as directed - gabapentin (NEURONTIN) 300 mg capsule Take 2 capsules by mouth two times a day for 180 days. - hydroCHLOROthiazide (HYDRODIURIL, ESIDRIX) 12.5 mg capsule Take 1 capsule by mouth once daily. - ketoconazole (NIZORAL) 2 % cream Apply 1 application to affected area as needed. - losartan (COZAAR) 50 mg tablet Take 2 tablets by mouth once daily. - MULTIVITAMIN TABLET Take one(1) tablet daily. - nitroglycerin sublingual (NITROSTAT) 0.4 mg SL tablet Dissolve 1 tablet under the tongue as needed. DISSOLVE ON TONGUE FOR CHEST PAIN. IF NO PAIN RELIEF, CALL 911 - oxybutynin ER (DITROPAN XL) 15 mg 24 hr Extended Rel Tab Take 1 tablet by mouth once daily. - SYNTHROID 137 mcg tablet Take 1 tablet by mouth once daily. Take on empty stomach. For thyroid. - triamcinolone (KENALOG) 0.025 % cream Apply 1 application to affected area twice daily. - TUMS CALCIUM FOR LIFE BONE 750 MG ORAL CHEW Take (2) two per day. Meds Comments as of 01/12/2022: Changed all Rx's to [facility]. 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] 05/10/2004 Essential hypertension, benign [I10] 12/16/2005 Elevated glucose [R73.09] 05/24/2012 Hypothyroidism [E03.9] 05/24/2012 Hyperlipidemia, mixed [E78.2] 05/24/2012 Female stress incontinence [N39.3] 08/23/2012 Acute medial meniscus tear of right knee [S83.2*10/23/2013 12/27/2020 Arthritis of knee, right [M17.11] 07/09/2014 Coronary artery disease involving [place] clay*01/09/2019 Carotid stenosis, asymptomatic, bilateral [I65.*10/02/2019 Carotid artery stenosis [I65.29] 10/21/2019 07/11/2021 Post-operative state [Z98.890] 10/22/2019 12/27/2020 GERD (gastroesophageal reflux disease) [K21.9] 01/13/2020 Prediabetes [R73.03] 01/13/2020 07/11/2021 Class 1 obesity due to excess calories with bod*01/13/2020 07/11/2021 Stage 3a chronic kidney disease [N18.31] 01/13/2020 Primary osteoarthritis of right hip [M16.11] 01/13/2020 OA (osteoarthritis) of hip [M16.9] 01/15/2020 Hypertensive kidney disease with stage 3a chron*12/27/2020 Type 2 diabetes mellitus with stage 3a chronic *12/27/2020 Carotid stenosis, left [I65.22] 07/19/2021 Encounter Status:Closed by ASHLEY GARCIA on 01/04/23 [facility] 01-04-2023 History of Present illness Narrative Care Coordination Deferred Outreach Provider Action / FYI: N/A Deferred outreach to patient at this time due to: Chart Review Only Last outreach 12/06/22. Pt now requesting q 2 month outreaches. Did not contact patient today. Next Outreach date: 02/01/23 Ashley Garcia RN January 04, 2023 1:59 PM documented in this encounter [facility] 01-01-2023 Miscellaneous Notes The following approved medication requests have been transmitted electronically. Requested Prescriptions Pending Prescriptions Disp Refills gabapentin (NEURONTIN) 300 mg capsule 360 capsule 1 Sig: Take 2 capsules by mouth two times a day for 180 days. Umesh Liz APRN.CNP CELINA 07/14/22 NOV 01/15/23 Please review and advise. Thank you. MARA Escobar Patient has been identified by name and date of : Yes Requested Prescriptions Pending Prescriptions Disp Refills gabapentin (NEURONTIN) 300 mg capsule 360 capsule 1 Sig: Take 2 capsules by mouth two times a day for 180 days. RX INSTRUCTIONS: Patient aware RX will be sent to [facility] pharmacy. No need to notify patient. Grace Ordoñez documented in this encounter [facility] 12-06-2022 Note Patient Outreach (AM [facility]) MATEO BEDOYA V ([id number]) 1945 F Date Time Provider Department 12/06/22 ASHLEY GARCIA During your visit today, we recorded the following information about you: Ashley Garcia RN 12/06/2022 10:11 AM Signed [facility] Telephonic Outreach Provider Action/TAYA N/A Contacted for: Routine Telephonic Outreach Contact made with patient: No, left message on mobile number. Ashley Garcia RN December 06, 2022 10:10 AM Ashley Garcia RN 12/06/2022 10:19 AM Signed [facility] Telephonic Outreach Provider Action/TAYA N/A Contacted for: Routine Telephonic Outreach Contact made with patient: Yes Patient identified by name and date of . Discussed care with patient Are you experiencing any new or worsening symptoms you need to talk about today? No Disease Specific Do you check your blood pressure at home? No Do you have new or worsening shortness of breath with activity? No Do you feel like you are dehydrated for any reason, including not being able to eat or drink normally, or having less urine/much darker urine than normal for you? No Do you check your daily weight at home? No Based on patient assessment coordinator, the following disposition is advised: No symptoms or symptoms present, not severe. Routed to: No Action Needed RUTHIE Education Provided this Outreach: No Upcoming appointments reviewed: Appointments for Next 60 Days Date Time Provider Location Dept Phone 01/08/2023 9:30 AM DIXIE SHIN Dodie [facility] [phone] 01/15/2023 1:00 PM ALEJANDRA VALLE [facility] [phone] Ashley Garcia RN December 06, 2022 10:16 AM Allergies As of Date: 12/06/2022 Noted Allergy Reaction bee stings and insect bites [Othe*12/13/2005 7 - Swelling CODEINE 05/10/2004 8 - GI Upset MORPHINE 05/10/2004 14 - Other: See Comments Comments: Pt is unable to sleep PERCOCET (ACETAMINOPHEN) 05/10/2004 5 - Intolerance Comments: Increased and irregular heart rate PERCODAN (ASPIRIN) 05/10/2004 5 - Intolerance Comments: Increased and irregular heart rate Date Reviewed: 10/02/2022 Reviewed by: Janice Anderson - Fully Assessed Reason for Visit: Community Monitoring Outreach [Other] Cmt: Telephonic Outreach CDM Home Monitoring Prescriptions as of 12/06/2022 - atenolol (TENORMIN) 100 mg tablet Take 1 tablet by mouth twice daily. - triamcinolone (KENALOG) 0.025 % cream Apply 1 application to affected area twice daily. - oxybutynin ER (DITROPAN XL) 15 mg 24 hr Extended Rel Tab Take 1 tablet by mouth once daily. - gabapentin (NEURONTIN) 300 mg capsule Take 2 capsules by mouth twice daily for 180 days. - hydroCHLOROthiazide (HYDRODIURIL, ESIDRIX) 12.5 mg capsule Take 1 capsule by mouth once daily. - SYNTHROID 137 mcg tablet Take 1 tablet by mouth once daily. Take on empty stomach. For thyroid. - atorvastatin (LIPITOR) 80 mg tablet Take 1 tablet by mouth once daily. - clopidogrel (PLAVIX) 75 mg tablet Take 1 tablet by mouth once daily. - EPINEPHrine (EPIPEN) 0.3 mg/0.3 mL auto-injector Use as directed - nitroglycerin sublingual (NITROSTAT) 0.4 mg SL tablet Dissolve 1 tablet under the tongue as needed. DISSOLVE ON TONGUE FOR CHEST PAIN. IF NO PAIN RELIEF, CALL 911 - aspirin 325 mg tablet Take 1 tablet by mouth once daily. - ketoconazole (NIZORAL) 2 % cream Apply 1 application to affected area as needed. - losartan (COZAAR) 50 mg tablet Take 2 tablets by mouth once daily. - TUMS CALCIUM FOR LIFE BONE 750 MG ORAL CHEW Take (2) two per day. - MULTIVITAMIN TABLET Take one(1) tablet daily. Meds Comments as of 01/12/2022: Changed all Rx's to [facility]. 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] 05/10/2004 Essential hypertension, benign [I10] 12/16/2005 Elevated glucose [R73.09] 05/24/2012 Hypothyroidism [E03.9] 05/24/2012 Hyperlipidemia, mixed [E78.2] 05/24/2012 Female stress incontinence [N39.3] 08/23/2012 Acute medial meniscus tear of right knee [S83.2*10/23/2013 12/27/2020 Arthritis of knee, right [M17.11] 07/09/2014 Coronary artery disease involving [place] clay*01/09/2019 Carotid stenosis, asymptomatic, bilateral [I65.*10/02/2019 Carotid artery stenosis [I65.29] 10/21/2019 07/11/2021 Post-operative state [Z98.890] 10/22/2019 12/27/2020 GERD (gastroesophageal reflux disease) [K21.9] 01/13/2020 Prediabetes [R73.03] 01/13/2020 07/11/2021 Class 1 obesity due to excess calories with bod*01/13/2020 07/11/2021 Stage 3a chronic kidney disease [N18.31] 01/13/2020 Primary osteoarthritis of right hip [M16.11] 01/13/2020 OA (osteoarthritis) of hip [M16.9] 01/15/2020 Hypertensive kidney disease with stage 3a chron*12/27/2020 Type 2 diabetes mellitus with stage 3a chronic *12/27/2020 Carotid stenosis, left [I65.22] 07/19/2021 Encounter Status:Closed by ASHLEY GARCIA on 12/06/22 [facility] 12-06-2022 Note HNO ID: [id number] Author: Kvacek, Ashley, RN Service: ? Author Type: Registered Nurse Type: Progress Notes Filed: 12/06/2022 10:19 AM Note Text: [facility] Telephonic Outreach Provider Action/FYI N/A Contacted for: Routine Telephonic Outreach Contact made with patient: Yes Patient identified by name and date of . Discussed care with patient Are you experiencing any new or worsening symptoms you need to talk about today? No Disease Specific Do you check your blood pressure at home? No Do you have new or worsening shortness of breath with activity? No Do you feel like you are dehydrated for any reason, including not being able to eat or drink normally, or having less urine/much darker urine than normal for you? No Do you check your daily weight at home? No Based on patient assessment coordinator, the following disposition is advised: No symptoms or symptoms present, not severe. Routed to: No Action Needed RUTHIE Education Provided this Outreach: No Upcoming appointments reviewed: Appointments for Next 60 Days Date Time Provider Location Dept Phone 01/08/2023 9:30 AM DIXIE SHIN [facility] [phone] 01/15/2023 1:00 PM ALEJANDRA VALLE [facility] [phone] Ashley Garcia RN December 06, 2022 10:16 AM [facility] 12-06-2022 Note HNO ID: [id number] Author: Ashley Garcia RN Service: ? Author Type: Registered Nurse Type: Progress Notes Filed: 12/06/2022 10:11 AM Note Text: [facility] Telephonic Outreach Provider Action/FYI N/A Contacted for: Routine Telephonic Outreach Contact made with patient: No, left message on mobile number. Ashley Garcia RN December 06, 2022 10:10 AM [facility] 12-06-2022 History of Present illness Narrative [facility] Telephonic Outreach Provider Action/FYI N/A Contacted for: Routine Telephonic Outreach Contact made with patient: Yes Patient identified by name and date of . Discussed care with patient Are you experiencing any new or worsening symptoms you need to talk about today? No Disease Specific Do you check your blood pressure at home? No Do you have new or worsening shortness of breath with activity? No Do you feel like you are dehydrated for any reason, including not being able to eat or drink normally, or having less urine/much darker urine than normal for you? No Do you check your daily weight at home? No Based on patient assessment coordinator, the following disposition is advised: No symptoms or symptoms present, not severe. Routed to: No Action Needed RUTHIE Education Provided this Outreach: No Upcoming appointments reviewed: Appointments for Next 60 Days Date Time Provider Location Dept Phone 01/08/2023 9:30 AM DIXIE SHIN [facility] [phone] 01/15/2023 1:00 PM ALEJANDRA VALLE [facility] [phone] Ashley Garcia RN December 06, 2022 10:16 AM [facility] Telephonic Outreach Provider Action/FYI N/A Contacted for: Routine Telephonic Outreach Contact made with patient: No, left message on mobile number. Ashley Garcia RN December 06, 2022 10:10 AM documented in this encounter [facility] 11-20-2022 Miscellaneous Notes OK to refill as ordered Alejandra Valle MD Pharmacy verified in [facility] Patient has been identified by name and date of : Yes Patient aware RX will be sent to pharmacy. No need to notify patient. Pharmacy phones for refill(s): Requested Prescriptions Pending Prescriptions Disp Refills atenolol (TENORMIN) 100 mg tablet 180 tablet 3 Sig: Take 1 tablet by mouth twice daily. Date of last office visit : 07/14/2022 Date of next office visit : 01/15/2023 Last 2 Encounter Wt Readings: Date: Wt: 10/02/2022 100.2 kg (221 lb) 09/11/2022 99.6 kg (219 lb 9.6 oz) Not applicable Please advise. Jamee Okeefe documented in this encounter [facility] 11-08-2022 Note HNO ID: [id number] Author: Ashley Garcia RN Service: ? Author Type: Registered Nurse Type: Progress Notes Filed: 11/08/2022 1:18 PM Note Text: [facility] Telephonic Outreach Provider Action/TAYA Left hip pain x 3 weeks-thinks she will have to have it replaced. Dr.Trevor Shin replaced right hip in 2019. Otherwise no new or worsening sx. Contacted for: Routine Telephonic Outreach Contact made with patient: Yes Patient identified by name and date of . Discussed care with patient Are you experiencing any new or worsening symptoms you need to talk about today? No Disease Specific Do you check your blood pressure at home? No Do you have new or worsening shortness of breath with activity? No Do you feel like you are dehydrated for any reason, including not being able to eat or drink normally, or having less urine/much darker urine than normal for you? No Do you check your daily weight at home? No Based on patient assessment coordinator, the following disposition is advised: No symptoms or symptoms present, not severe. SEE FYI BOX ABOVE Routed to: No Action Needed RUTHIE Education Provided this Outreach: No Ashley Garcia RN November 08, 2022 1:17 PM [facility] 11-08-2022 Note Patient Outreach (AM [facility]) MATEO BEDOYA V ([id number]) 1945 F Date Time Provider Department 11/08/22 ASHLEY GARCIA During your visit today, we recorded the following information about you: Ashley Garcia RN 11/08/2022 1:18 PM Signed CD Telephonic Outreach Provider Action/TAYA Left hip pain x 3 weeks-thinks she will have to have it replaced. Dr.Trevor Shin replaced right hip in 2019. Otherwise no new or worsening sx. Contacted for: Routine Telephonic Outreach Contact made with patient: Yes Patient identified by name and date of . Discussed care with patient Are you experiencing any new or worsening symptoms you need to talk about today? No Disease Specific Do you check your blood pressure at home? No Do you have new or worsening shortness of breath with activity? No Do you feel like you are dehydrated for any reason, including not being able to eat or drink normally, or having less urine/much darker urine than normal for you? No Do you check your daily weight at home? No Based on patient assessment coordinator, the following disposition is advised: No symptoms or symptoms present, not severe. SEE FYI BOX ABOVE Routed to: No Action Needed RUTHIE Education Provided this Outreach: No Ashley Garcia RN November 08, 2022 1:17 PM Allergies As of Date: 11/08/2022 Noted Allergy Reaction bee stings and insect bites [Othe*12/13/2005 7 - Swelling CODEINE 05/10/2004 8 - GI Upset MORPHINE 05/10/2004 14 - Other: See Comments Comments: Pt is unable to sleep PERCOCET (ACETAMINOPHEN) 05/10/2004 5 - Intolerance Comments: Increased and irregular heart rate PERCODAN (ASPIRIN) 05/10/2004 5 - Intolerance Comments: Increased and irregular heart rate Date Reviewed: 10/02/2022 Reviewed by: Janice Anderson - Fully Assessed Reason for Visit: Community Monitoring Outreach [Other] Cmt: Telephonic Outreach CDM Home Monitoring Prescriptions as of 11/08/2022 - triamcinolone (KENALOG) 0.025 % cream Apply 1 application to affected area twice daily. - oxybutynin ER (DITROPAN XL) 15 mg 24 hr Extended Rel Tab Take 1 tablet by mouth once daily. - gabapentin (NEURONTIN) 300 mg capsule Take 2 capsules by mouth twice daily for 180 days. - hydroCHLOROthiazide (HYDRODIURIL, ESIDRIX) 12.5 mg capsule Take 1 capsule by mouth once daily. - SYNTHROID 137 mcg tablet Take 1 tablet by mouth once daily. Take on empty stomach. For thyroid. - atorvastatin (LIPITOR) 80 mg tablet Take 1 tablet by mouth once daily. - clopidogrel (PLAVIX) 75 mg tablet Take 1 tablet by mouth once daily. - atenolol (TENORMIN) 100 mg tablet Take 1 tablet by mouth twice daily. - EPINEPHrine (EPIPEN) 0.3 mg/0.3 mL auto-injector Use as directed - nitroglycerin sublingual (NITROSTAT) 0.4 mg SL tablet Dissolve 1 tablet under the tongue as needed. DISSOLVE ON TONGUE FOR CHEST PAIN. IF NO PAIN RELIEF, CALL 911 - aspirin 325 mg tablet Take 1 tablet by mouth once daily. - ketoconazole (NIZORAL) 2 % cream Apply 1 application to affected area as needed. - losartan (COZAAR) 50 mg tablet Take 2 tablets by mouth once daily. - TUMS CALCIUM FOR LIFE BONE 750 MG ORAL CHEW Take (2) two per day. - MULTIVITAMIN TABLET Take one(1) tablet daily. Meds Comments as of 01/12/2022: Changed all Rx's to [facility]. 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] 05/10/2004 Essential hypertension, benign [I10] 12/16/2005 Elevated glucose [R73.09] 05/24/2012 Hypothyroidism [E03.9] 05/24/2012 Hyperlipidemia, mixed [E78.2] 05/24/2012 Female stress incontinence [N39.3] 08/23/2012 Acute medial meniscus tear of right knee [S83.2*10/23/2013 12/27/2020 Arthritis of knee, right [M17.11] 07/09/2014 Coronary artery disease involving [place] clay*01/09/2019 Carotid stenosis, asymptomatic, bilateral [I65.*10/02/2019 Carotid artery stenosis [I65.29] 10/21/2019 07/11/2021 Post-operative state [Z98.890] 10/22/2019 12/27/2020 GERD (gastroesophageal reflux disease) [K21.9] 01/13/2020 Prediabetes [R73.03] 01/13/2020 07/11/2021 Class 1 obesity due to excess calories with bod*01/13/2020 07/11/2021 Stage 3a chronic kidney disease [N18.31] 01/13/2020 Primary osteoarthritis of right hip [M16.11] 01/13/2020 OA (osteoarthritis) of hip [M16.9] 01/15/2020 Hypertensive kidney disease with stage 3a chron*12/27/2020 Type 2 diabetes mellitus with stage 3a chronic *12/27/2020 Carotid stenosis, left [I65.22] 07/19/2021 Encounter Status:Closed by ASHLEY GARCIA on 11/08/22 [facility] 11-08-2022 History of Present illness Narrative [facility] Telephonic Outreach Provider Sapna/TAYA Left hip pain x 3 weeks-thinks she will have to have it replaced. Dr.Trevor Shin replaced right hip in 2019. Otherwise no new or worsening sx. Contacted for: Routine Telephonic Outreach Contact made with patient: Yes Patient identified by name and date of . Discussed care with patient Are you experiencing any new or worsening symptoms you need to talk about today? No Disease Specific Do you check your blood pressure at home? No Do you have new or worsening shortness of breath with activity? No Do you feel like you are dehydrated for any reason, including not being able to eat or drink normally, or having less urine/much darker urine than normal for you? No Do you check your daily weight at home? No Based on patient assessment coordinator, the following disposition is advised: No symptoms or symptoms present, not severe. SEE FYI BOX ABOVE Routed to: No Action Needed RUTHIE Education Provided this Outreach: No Ashley Garcia RN November 08, 2022 1:17 PM documented in this encounter [facility] 10-11-2022 Note HNO ID: [id number] Author: Ashley Garcia RN Service: ? Author Type: Registered Nurse Type: Progress Notes Filed: 10/11/2022 1:20 PM Note Text: [facility] Telephonic Outreach Provider Sapna/TAYA Left VM on mobile number (preferred contact number) and on home phone number. Contacted for: Routine Telephonic Outreach Contact made with patient: No, left message. Ashley aGrcia RN October 11, 2022 1:20 PM [facility] 10-11-2022 Note Patient Outreach (AM [facility]) MATEO BEDOYA V ([id number]) 1945 F Date Time Provider Department 10/11/22 ASHLEY GARCIA During your visit today, we recorded the following information about you: Ashley Garcia RN 10/11/2022 1:20 PM Signed [facility] Telephonic Outreach Provider Sapna/TAYA Left VM on mobile number (preferred contact number) and on home phone number. Contacted for: Routine Telephonic Outreach Contact made with patient: No, left message. Ashley Garcia RN October 11, 2022 1:20 PM Allergies As of Date: 10/11/2022 Noted Allergy Reaction bee stings and insect bites [Othe*12/13/2005 7 - Swelling CODEINE 05/10/2004 8 - GI Upset MORPHINE 05/10/2004 14 - Other: See Comments Comments: Pt is unable to sleep PERCOCET (ACETAMINOPHEN) 05/10/2004 5 - Intolerance Comments: Increased and irregular heart rate PERCODAN (ASPIRIN) 05/10/2004 5 - Intolerance Comments: Increased and irregular heart rate Date Reviewed: 10/02/2022 Reviewed by: Janice Anderson - Fully Assessed Reason for Visit: Community Monitoring Outreach [Other] Cmt: Telephonic Outreach CDM Home Monitoring Prescriptions as of 10/11/2022 - predniSONE (DELTASONE) 10 mg tablet Take 4 tabs daily for 3 days, then 2 tabs daily for 3 days, then 1 tab daily for 3 days with food. - triamcinolone (KENALOG) 0.025 % cream Apply 1 application to affected area twice daily. - oxybutynin ER (DITROPAN XL) 15 mg 24 hr Extended Rel Tab Take 1 tablet by mouth once daily. - gabapentin (NEURONTIN) 300 mg capsule Take 2 capsules by mouth twice daily for 180 days. - hydroCHLOROthiazide (HYDRODIURIL, ESIDRIX) 12.5 mg capsule Take 1 capsule by mouth once daily. - SYNTHROID 137 mcg tablet Take 1 tablet by mouth once daily. Take on empty stomach. For thyroid. - atorvastatin (LIPITOR) 80 mg tablet Take 1 tablet by mouth once daily. - clopidogrel (PLAVIX) 75 mg tablet Take 1 tablet by mouth once daily. - atenolol (TENORMIN) 100 mg tablet Take 1 tablet by mouth twice daily. - EPINEPHrine (EPIPEN) 0.3 mg/0.3 mL auto-injector Use as directed - nitroglycerin sublingual (NITROSTAT) 0.4 mg SL tablet Dissolve 1 tablet under the tongue as needed. DISSOLVE ON TONGUE FOR CHEST PAIN. IF NO PAIN RELIEF, CALL 911 - aspirin 325 mg tablet Take 1 tablet by mouth once daily. - ketoconazole (NIZORAL) 2 % cream Apply 1 application to affected area as needed. - losartan (COZAAR) 50 mg tablet Take 2 tablets by mouth once daily. - TUMS CALCIUM FOR LIFE BONE 750 MG ORAL CHEW Take (2) two per day. - MULTIVITAMIN TABLET Take one(1) tablet daily. Meds Comments as of 01/12/2022: Changed all Rx's to [facility]. 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] 05/10/2004 Essential hypertension, benign [I10] 12/16/2005 Elevated glucose [R73.09] 05/24/2012 Hypothyroidism [E03.9] 05/24/2012 Hyperlipidemia, mixed [E78.2] 05/24/2012 Female stress incontinence [N39.3] 08/23/2012 Acute medial meniscus tear of right knee [S83.2*10/23/2013 12/27/2020 Arthritis of knee, right [M17.11] 07/09/2014 Coronary artery disease involving [place] clay*01/09/2019 Carotid stenosis, asymptomatic, bilateral [I65.*10/02/2019 Carotid artery stenosis [I65.29] 10/21/2019 07/11/2021 Post-operative state [Z98.890] 10/22/2019 12/27/2020 GERD (gastroesophageal reflux disease) [K21.9] 01/13/2020 Prediabetes [R73.03] 01/13/2020 07/11/2021 Class 1 obesity due to excess calories with bod*01/13/2020 07/11/2021 Stage 3a chronic kidney disease [N18.31] 01/13/2020 Primary osteoarthritis of right hip [M16.11] 01/13/2020 OA (osteoarthritis) of hip [M16.9] 01/15/2020 Hypertensive kidney disease with stage 3a chron*12/27/2020 Type 2 diabetes mellitus with stage 3a chronic *12/27/2020 Carotid stenosis, left [I65.22] 07/19/2021 Encounter Status:Closed by ASHLEY GARCIA on 10/11/22 [facility] 10-11-2022 History of Present illness Narrative CDM Telephonic Outreach Provider Action/TAYA Left VM on mobile number (preferred contact number) and on home phone number. Contacted for: Routine Telephonic Outreach Contact made with patient: No, left message. Ashley Garcia RN October 11, 2022 1:20 PM documented in this encounter [facility] 10-02-2022 Note HNO ID: [id number] Author: Rizwana Hoyt APRN.MANAGEMENT INTERN Service: ? Author Type: Nurse Practitioner Type: Progress Notes Filed: 10/02/2022 3:29 PM Note Text: Subjective HPI Mateo Bedoya is a 77 year old female who presents with a rash that has been present since 09/06. She was seen here on 09/11 and had this rash from poison ellie then, but was also experiencing a shingles outbreak on her face so was not prescribed a steroid. She took Valtrex and shingles symptoms have resolved. She has been using kenalog cream on the rash and it does help but it does not stop the itch long and the rash still seems to be spreading. It is present on bilateral arms, left thigh, and her forehead. Review of Systems Constitutional: Negative for chills and fever. Respiratory: Negative for shortness of breath. Cardiovascular: Negative. Musculoskeletal: Negative for myalgias. Skin: Positive for itching and rash. BP 118/72 Pulse 76 Temp 36.6 ?C (97.9 ?F) Resp 16 Wt 100.2 kg (221 lb) LMP (LMP Unknown) SpO2 96% BMI 34.10 kg/m? PAST MEDICAL HISTORY Diagnosis Date artery spasm causes CP, she has nitro Benign neoplasm of brain (HCC) 2004 meningioma Carotid stenosis, asymptomatic, bilateral 10/02/2019 Dysthymic disorder Essential hypertension, benign Herpes zoster 10/26 Impaired fasting glucose 03/31 Obesity, unspecified Other and unspecified hyperlipidemia Pessary maintenance Urinary incontinence PAST SURGICAL HISTORY Procedure Laterality Date EXTRACTION, ERUPTED TOOTH OR EXPOSED ROOT (ELEVATION AND/OR FORCEPS REMOVAL) Walker teeth LAPAROSCOPY SURG CHOLECYSTECTOMY 90s Cholecystectomy, lap OOPHORECTOMY PARTIAL/TOTAL UNI/BI 80s Oophorectomy PAST SURGICAL HISTORY OF 80s 10 surgeries 14 abd tumors, all benign PAST SURGICAL HISTORY OF 12/16/2015 Dr. Reinoso, skin lesion removed PAST SURGICAL HISTORY OF Right 07/04/2016 right breast needle biopsy, benign - Dr. Reinoso PAST SURGICAL HISTORY OF N/A 05/23/2018 4 stents placed by [facility] PAST SURGICAL HISTORY OF N/A 08/14/2018 5th stent placed by [facility] PAST SURGICAL HISTORY OF Right right upper tooth implant PAST SURGICAL HISTORY OF 2021 Stent placed in Left Carotid Artery THYROIDECTOMY TOTAL/COMPLETE 2003 large nodule. Complete TOTAL ABDOMINAL HYSTERECT W/WO RMVL TUBE OVARY 80s Hysterectomy, BING TOTAL HIP JOINT REPLACEMENT Right 01/15/2020 [facility] ALLERGIES Bee Stings And Insect Bites [Other], Codeine, Morphine, Percocet [Acetaminophen], and Percodan [Aspirin] MEDICATIONS triamcinolone (KENALOG) 0.025 % cream Apply 1 application to affected area twice daily. oxybutynin ER (DITROPAN XL) 15 mg 24 hr Extended Rel Tab Take 1 tablet by mouth once daily. gabapentin (NEURONTIN) 300 mg capsule Take 2 capsules by mouth twice daily for 180 days. hydroCHLOROthiazide (HYDRODIURIL, ESIDRIX) 12.5 mg capsule Take 1 capsule by mouth once daily. SYNTHROID 137 mcg tablet Take 1 tablet by mouth once daily. Take on empty stomach. For thyroid. atorvastatin (LIPITOR) 80 mg tablet Take 1 tablet by mouth once daily. clopidogrel (PLAVIX) 75 mg tablet Take 1 tablet by mouth once daily. atenolol (TENORMIN) 100 mg tablet Take 1 tablet by mouth twice daily. EPINEPHrine (EPIPEN) 0.3 mg/0.3 mL auto-injector Use as directed nitroglycerin sublingual (NITROSTAT) 0.4 mg SL tablet Dissolve 1 tablet under the tongue as needed. DISSOLVE ON TONGUE FOR CHEST PAIN. IF NO PAIN RELIEF, CALL 911 aspirin 325 mg tablet Take 1 tablet by mouth once daily. ketoconazole (NIZORAL) 2 % cream Apply 1 application to affected area as needed. losartan (COZAAR) 50 mg tablet Take 2 tablets by mouth once daily. TUMS CALCIUM FOR LIFE BONE 750 MG ORAL CHEW Take (2) two per day. MULTIVITAMIN TABLET Take one(1) tablet daily. predniSONE (DELTASONE) 10 mg tablet Take 4 tabs daily for 3 days, then 2 tabs daily for 3 days, then 1 tab daily for 3 days with food. FAMILY HISTORY Problem Relation Age of Onset Allergies Mother Cancer Mother thyroid Allergies Father Heart Father Diabetes Father Diabetes Brother Diabetes Maternal Aunt Cervical Cancer Paternal Grandmother Social History Tobacco Use Smoking status: Never Smokeless tobacco: Never Vaping Use Vaping Use: Never used Substance Use Topics Alcohol use: Yes Comment: very rarely/ twice per year Drug use: No Objective Physical Exam Vitals and nursing note reviewed. Constitutional: Appearance: Normal appearance. Cardiovascular: Rate and Rhythm: Normal rate. Pulmonary: Effort: Pulmonary effort is normal. Skin: General: Skin is warm and dry. Findings: Erythema and rash present. Neurological: Mental Status: She is alert. ASSESSMENT/PLAN: 1. Rash - ICD9: 782.1, ICD10: R21 - PREDNISONE 10 MG TABLET - Follow-up with your PCP in 3-5 days if symptoms have not improved or sooner if symptoms worsen - Discussed red flags and need for immediate medical evaluati (more content not included)... [facility] 10-02-2022 History of Present illness Narrative Images from the original note were not included. Subjective HPI Mateo Bedoya is a 77 year old female who presents with a rash that has been present since 09/06. She was seen here on 09/11 and had this rash from poison ellie then, but was also experiencing a shingles outbreak on her face so was not prescribed a steroid. She took Valtrex and shingles symptoms have resolved. She has been using kenalog cream on the rash and it does help but it does not stop the itch long and the rash still seems to be spreading. It is present on bilateral arms, left thigh, and her forehead. Review of Systems Constitutional: Negative for chills and fever. Respiratory: Negative for shortness of breath. Cardiovascular: Negative. Musculoskeletal: Negative for myalgias. Skin: Positive for itching and rash. BP 118/72 Pulse 76 Temp 36.6 C (97.9 F) Resp 16 Wt 100.2 kg (221 lb) LMP (LMP Unknown) SpO2 96% BMI 34.10 kg/m PAST MEDICAL HISTORY Diagnosis Date artery spasm causes CP, she has nitro Benign neoplasm of brain (HCC) 2004 meningioma Carotid stenosis, asymptomatic, bilateral 10/02/2019 Dysthymic disorder Essential hypertension, benign Herpes zoster 10/26 Impaired fasting glucose 03/31 Obesity, unspecified Other and unspecified hyperlipidemia Pessary maintenance Urinary incontinence PAST SURGICAL HISTORY Procedure Laterality Date EXTRACTION, ERUPTED TOOTH OR EXPOSED ROOT (ELEVATION AND/OR FORCEPS REMOVAL) Walker teeth LAPAROSCOPY SURG CHOLECYSTECTOMY 90s Cholecystectomy, lap OOPHORECTOMY PARTIAL/TOTAL UNI/BI 80s Oophorectomy PAST SURGICAL HISTORY OF 80s 10 surgeries 14 abd tumors, all benign PAST SURGICAL HISTORY OF 12/16/2015 Dr. Reinoso, skin lesion removed PAST SURGICAL HISTORY OF Right 07/04/2016 right breast needle biopsy, benign - Dr. Reinoso PAST SURGICAL HISTORY OF N/A 05/23/2018 4 stents placed by [facility] PAST SURGICAL HISTORY OF N/A 08/14/2018 5th stent placed by [facility] PAST SURGICAL HISTORY OF Right right upper tooth implant PAST SURGICAL HISTORY OF 2021 Stent placed in Left Carotid Artery THYROIDECTOMY TOTAL/COMPLETE 2003 large nodule. Complete TOTAL ABDOMINAL HYSTERECT W/WO RMVL TUBE OVARY 80s Hysterectomy, BING TOTAL HIP JOINT REPLACEMENT Right 01/15/2020 [facility] ALLERGIES Bee Stings And Insect Bites [Other], Codeine, Morphine, Percocet [Acetaminophen], and Percodan [Aspirin] MEDICATIONS triamcinolone (KENALOG) 0.025 % cream Apply 1 application to affected area twice daily. oxybutynin ER (DITROPAN XL) 15 mg 24 hr Extended Rel Tab Take 1 tablet by mouth once daily. gabapentin (NEURONTIN) 300 mg capsule Take 2 capsules by mouth twice daily for 180 days. hydroCHLOROthiazide (HYDRODIURIL, ESIDRIX) 12.5 mg capsule Take 1 capsule by mouth once daily. SYNTHROID 137 mcg tablet Take 1 tablet by mouth once daily. Take on empty stomach. For thyroid. atorvastatin (LIPITOR) 80 mg tablet Take 1 tablet by mouth once daily. clopidogrel (PLAVIX) 75 mg tablet Take 1 tablet by mouth once daily. atenolol (TENORMIN) 100 mg tablet Take 1 tablet by mouth twice daily. EPINEPHrine (EPIPEN) 0.3 mg/0.3 mL auto-injector Use as directed nitroglycerin sublingual (NITROSTAT) 0.4 mg SL tablet Dissolve 1 tablet under the tongue as needed. DISSOLVE ON TONGUE FOR CHEST PAIN. IF NO PAIN RELIEF, CALL 911 aspirin 325 mg tablet Take 1 tablet by mouth once daily. ketoconazole (NIZORAL) 2 % cream Apply 1 application to affected area as needed. losartan (COZAAR) 50 mg tablet Take 2 tablets by mouth once daily. TUMS CALCIUM FOR LIFE BONE 750 MG ORAL CHEW Take (2) two per day. MULTIVITAMIN TABLET Take one(1) tablet daily. predniSONE (DELTASONE) 10 mg tablet Take 4 tabs daily for 3 days, then 2 tabs daily for 3 days, then 1 tab daily for 3 days with food. FAMILY HISTORY Problem Relation Age of Onset Allergies Mother Cancer Mother thyroid Allergies Father Heart Father Diabetes Father Diabetes Brother Diabetes Maternal Aunt Cervical Cancer Paternal Grandmother Social History Tobacco Use Smoking status: Never Smokeless tobacco: Never Vaping Use Vaping Use: Never used Substance Use Topics Alcohol use: Yes Comment: very rarely/ twice per year Drug use: No Objective Physical Exam Vitals and nursing note reviewed. Constitutional: Appearance: Normal appearance. Cardiovascular: Rate and Rhythm: Normal rate. Pulmonary: Effort: Pulmonary effort is normal. Skin: General: Skin is warm and dry. Findings: Erythema and rash present. Neurological: Mental Status: She is alert. ASSESSMENT/PLAN: 1. Rash - ICD9: 782.1, ICD10: R21 - PREDNISONE 10 MG TABLET - Follow-up with your PCP in 3-5 days if symptoms have not improved or sooner if symptoms worsen - Discussed red flags and need for immediate medical evaluation if any occur. - Discussed supportive care treatment with fluids, rest and analgesia. - Discussed expected course of illness Rizwana Hoyt APRN.MANAGEMENT INTERN documented in this encounter [facility] 10-02-2022 Instructions Rizwana Hoyt APRN.MARTIN - 10/02/2022 3:10 PM EDT ASSESSMENT/PLAN: 1. Rash - ICD9: 782.1, ICD10: R21 - PREDNISONE 10 MG TABLET - Follow-up with your PCP in 3-5 days if symptoms have not improved or sooner if symptoms worsen - Discussed red flags and need for immediate medical evaluation if any occur. - Discussed supportive care treatment with fluids, rest and analgesia. - Discussed expected course of illness Rizwana Hoyt APRN.MART[facility] PATIENT INFO POISON ELLIE INTRODUCTION When the skin comes in direct contact with an irritating or allergy-causing substance, contact dermatitis can develop. Exposure to poison ellie, poison oak, and poison sumac cause more cases of allergic contact dermatitis than all other plant families combined. People of all ethnicities and skin types are at risk for developing poison ellie dermatitis. The severity of the reaction tends to decrease with age, especially in people who have had mild reactions in the past. People in occupations such as firefighting, forestry, and farming are at a higher risk of poison ellie dermatitis because of repeated exposure to toxic plants. POISON ELLIE CAUSES Poison ellie, poison oak, and poison sumac plants all contain a compound called urushiol, which is a light, colorless oil that is found on the fruit, leaves, stem, root, and sap of the plant. When urushiol is exposed to air, it turns brown and the plant leaves develop small black spots. There are several ways that you can be exposed to urushiol: By touching the sap or rubbing against the leaves of the toxic plant By touching something that has urushiol on it, such as animal fur or garden tools By breathing in smoke when toxic plants are burned Ginkgo fruit and the skin of mangoes also contain urushiol and can produce symptoms similar to poison ellie dermatitis. IDENTIFYING POISON ELLIE Leaves of three, let them be is a phrase often used to identify plants that cause poison ellie dermatitis. Generally, poison ellie and poison oak have three leaves with flowering branches on a single stem. Poison sumac has five, seven, or more leaves that angle upward toward the top of the stem. Some types of poison ellie produce a green or off-white fruit in sancho, and in some cases, black dots form on the plants' leaves. It is not always possible to identify the plant by the leaves alone since the appearance can vary depending upon the season, growth cycle, region, and climate. Poison ellie, oak, and sumac plants grow in many areas across the [facility] and throughout the world. [place] of the [facility], poison ellie commonly grows as a climbing vine. In the [place] area and west, poison ellie tends to grow low to the ground as a shrub. Poison oak most often grows west of the [facility], and poison sumac inhabits boggy areas in the southeastern part of the [facility]. The plants are not usually found in areas at high elevations or in desert climates. POISON ELLIE SIGNS AND SYMPTOMS After contact with urushiol, approximately 50 percent of people develop signs and symptoms of poison ellie dermatitis. The symptoms and severity differ from person to person. The most common signs and symptoms of poison ellie dermatitis are: Intense itching Skin swelling Skin redness These symptoms usually develop within four hours to four days after exposure to the urushiol. After the initial symptoms, you will develop fluid-filled blisters in a line or streak-like pattern. The symptoms are worst within 1 to 14 days after touching the plant, but can develop up to 21 days later if you have never been exposed to urushiol before. The blisters can occur at different times in different people; blisters can develop on the arms several days after blisters on the hands developed. This does not mean that the reaction is spreading from one area of the body to the other. The fluid that leaks from blisters does not cause symptoms. Poison ellie dermatitis is not contagious and cannot be passed from person to person. However, urushiol can be carried under fingernails and on clothes; if another person comes in contact with the urushiol, they can develop poison ellie dermatitis. POISON ELLIE DIAGNOSIS Poison ellie is usually diagnosed based upon how your skin looks. Further testing is not usually necessary. POISON ELLIE TREATMENT Poison ellie dermatitis usually resolves within one to three weeks without treatment. Treatments that may help relieve the itching, soreness, and discomfort caused by poison ellie dermatitis include: Skin treatments -- For some people, adding oatmeal to a bath, applying cool wet compresses, and applying calamine lotion may help to relieve itching. Once the blisters begin weeping fluid, astringents containing aluminum acetate (Aga's solution) and Domeboro may help to relieve the rash. Antihistamines -- Antihistamines may help to relieve itching caused by poison ellie dermatitis. Some antihistamines make you sleepy while others do not. Antihistamines that make you sleepy (eg, diphenhydramine [Benadryl ]) may be helpful if you have trouble sleeping due to itching. Other formulas (eg, loratadine [Claritin ], cetirizine [Zyrtec ]) may be preferable for daytime. Steroid creams -- Steroid creams may be helpful if they are used during the first few days after symptoms develop. Low potency steroid creams, such as 1 percent hydrocortisone (available in the [place] without prescription) are not usually helpful. A stronger prescription formula may be helpful. Steroids -- If you develop severe symptoms or the rash covers a large area (especially on the face or genitals), you may need steroid pills or injections (eg, prednisone) to help relieve itching and swelling. Pills are usually given for 14 to 21 days, with the dosage slowly decreased over time. Antibiotics -- Skin infections are a potential complication of poison ellie, especially if you scratch your skin. If you develop a skin infection because of poison ellie dermatitis, you may need antibiotics to treat the infection. Other treatments -- An herbal therapy called jewelweed extract has been used to treat poison ellie dermatitis, although it has not been proven effective. You should not use antihistamine creams or lotions, anesthetic creams containing benzocaine, or antibiotic creams containing neomycin or bacitracin to the skin. These creams or ointments could make the rash worse. POISON ELLIE PREVENTION The best way to prevent poison ellie dermatitis is to identify and avoid the plants that cause it. These plants can irritate the skin year round, even during the winter months, and can still cause a reaction years after the plant dies. Wear protective clothing, including long sleeves and pants when working in areas where toxic plants may be found. Keep in mind that the resin and oils from the toxic plants can be carried on clothing, pets, and under fingernails. Wear heavy-duty vinyl gloves when doing yard work or gardening. The oils from toxic plants can seep through latex or rubber gloves. After coming in contact with poison ellie, remove any contaminated clothing and gently wash (do not scrub or rub) you skin and under the fingernails with mild soap and water as soon as possible. Washing within two hours after exposure can reduce the likelihood and severity of symptoms; washing the skin after you have symptoms will not help. Creams and ointments that create a barrier between the skin and the urushiol oil may be somewhat effective for people who are frequently exposed to poison ellie. Bentoquatam (Ellie Block ) is one type of barrier cream that may prevent poison ellie dermatitis. It must be reapplied every four hours and it leaves a nicole residue on the skin. Avoid burning poisonous vegetation, which can disperse the plant particles in the smoke, irritate the skin, and cause poison ellie dermatitis. documented in this encounter [facility] 09-13-2022 Note Patient Outreach (AM [facility] [place]) MATEO BEDOYA V ([id number]) 1945 F Date Time Provider Department 09/13/22 ASHLEY GARCIA During your visit today, we recorded the following information about you: Ashley Garcia RN 09/13/2022 11:38 AM Signed CDM Telephonic Outreach Provider Action/FYChris Feeling much better post [facility] visit for rash/shingles. Drinking at least 48-64 oz. water/non caffeine beverages/day. Contacted for: Routine Telephonic Outreach Contact made with patient: Yes Patient identified by name and date of . Discussed care with patient Are you experiencing any new or worsening symptoms you need to talk about today? No Disease Specific Do you check your blood pressure at home? No Do you have new or worsening shortness of breath with activity? No Do you feel like you are dehydrated for any reason, including not being able to eat or drink normally, or having less urine/much darker urine than normal for you? No Do you check your daily weight at home? No Based on patient assessment coordinator, the following disposition is advised: No symptoms or symptoms present, not severe. Routed to: No Action Needed RUTHIE Education Provided this Outreach: No SDOH for food insecurity and transportation completed. No needs identified. Ashley Garcia RN September 13, 2022 11:33 AM and Goals/Falls/ADL Update Contact made with patient: Yes Patient identified by name and date of . Discussed care with: patient Goal Setting I would like to take some time today to discuss your personal health goals. Yes, patient has goals. Capture the goal the patient wants to accomplish: Lose . Does the goal align with programs offered at the [facility]? Yes Chronic Disease Management patient goals yes: Weight loss Most people know what to do to become healthier, yet struggle to put it into action on their own, It can be hard to maintain a healthy lifestyle, especially when life is so stressful. Can we connect you with a [facility] to find a program that could help you meet your goals? No Falls completed:Yes ADL's updated: Yes Are you experiencing any new or worsening symptoms you need to talk about today? No Based on patient assessment coordinator, the following disposition is advised: No symptoms or symptoms present, not severe. Ashley Garcia RN September 13, 2022 11:37 AM Allergies As of Date: 09/13/2022 Noted Allergy Reaction bee stings and insect bites [Othe*12/13/2005 7 - Swelling CODEINE 05/10/2004 8 - GI Upset MORPHINE 05/10/2004 14 - Other: See Comments Comments: Pt is unable to sleep PERCOCET (ACETAMINOPHEN) 05/10/2004 5 - Intolerance Comments: Increased and irregular heart rate PERCODAN (ASPIRIN) 05/10/2004 5 - Intolerance Comments: Increased and irregular heart rate Date Reviewed: 09/11/2022 Reviewed by: Noemi Avitia MA - Fully Assessed Reason for Visit: Community Monitoring Outreach [Other] Cmt: Telephonic Outreach CDM Home Monitoring Prescriptions as of 09/13/2022 - valACYclovir (VALTREX) 1 gram Take 1 tablet by mouth three times daily for 7 days. - triamcinolone (KENALOG) 0.025 % cream Apply 1 application to affected area twice daily. - oxybutynin ER (DITROPAN XL) 15 mg 24 hr Extended Rel Tab Take 1 tablet by mouth once daily. - gabapentin (NEURONTIN) 300 mg capsule Take 2 capsules by mouth twice daily for 180 days. - hydroCHLOROthiazide (HYDRODIURIL, ESIDRIX) 12.5 mg capsule Take 1 capsule by mouth once daily. - SYNTHROID 137 mcg tablet Take 1 tablet by mouth once daily. Take on empty stomach. For thyroid. - atorvastatin (LIPITOR) 80 mg tablet Take 1 tablet by mouth once daily. - clopidogrel (PLAVIX) 75 mg tablet Take 1 tablet by mouth once daily. - atenolol (TENORMIN) 100 mg tablet Take 1 tablet by mouth twice daily. - EPINEPHrine (EPIPEN) 0.3 mg/0.3 mL auto-injector Use as directed - nitroglycerin sublingual (NITROSTAT) 0.4 mg SL tablet Dissolve 1 tablet under the tongue as needed. DISSOLVE ON TONGUE FOR CHEST PAIN. IF NO PAIN RELIEF, CALL 911 - aspirin 325 mg tablet Take 1 tablet by mouth once daily. - ketoconazole (NIZORAL) 2 % cream Apply 1 application to affected area as needed. - losartan (COZAAR) 50 mg tablet Take 2 tablets by mouth once daily. - TUMS CALCIUM FOR LIFE BONE 750 MG ORAL CHEW Take (2) two per day. - MULTIVITAMIN TABLET Take one(1) tablet daily. Facility-Administered Medications as of 09/13/2022 - perflutren lipid microspheres 1.3 mL in NaCl (PF) 0.9% 10 mL injection (DEFINITY) - sodium chloride 0.9 % (flush) 10 mL (BD POSIFLUSH) Meds Comments as of 01/12/2022: Changed all Rx's to [facility]. 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 [facility] 09-13-2022 Note HNO ID: [id number] Author: Ashley Garcia RN Service: ? Author Type: Registered Nurse Type: Progress Notes Filed: 09/13/2022 11:38 AM Note Text: CDM Telephonic Outreach Provider Action/FYI Feeling much better post [facility] visit for rash/shingles. Drinking at least 48-64 oz. water/non caffeine beverages/day. Contacted for: Routine Telephonic Outreach Contact made with patient: Yes Patient identified by name and date of . Discussed care with patient Are you experiencing any new or worsening symptoms you need to talk about today? No Disease Specific Do you check your blood pressure at home? No Do you have new or worsening shortness of breath with activity? No Do you feel like you are dehydrated for any reason, including not being able to eat or drink normally, or having less urine/much darker urine than normal for you? No Do you check your daily weight at home? No Based on patient assessment coordinator, the following disposition is advised: No symptoms or symptoms present, not severe. Routed to: No Action Needed RUTHIE Education Provided this Outreach: No SDOH for food insecurity and transportation completed. No needs identified. Ashley Garcia RN September 13, 2022 11:33 AM and Goals/Falls/ADL Update Contact made with patient: Yes Patient identified by name and date of . Discussed care with: patient Goal Setting I would like to take some time today to discuss your personal health goals. Yes, patient has goals. Capture the goal the patient wants to accomplish: Lose . Does the goal align with programs offered at the [facility]? Yes Chronic Disease Management patient goals yes: Weight loss Most people know what to do to become healthier, yet struggle to put it into action on their own, It can be hard to maintain a healthy lifestyle, especially when life is so stressful. Can we connect you with a [facility] to find a program that could help you meet your goals? No Falls completed:Yes ADL's updated: Yes Are you experiencing any new or worsening symptoms you need to talk about today? No Based on patient assessment coordinator, the following disposition is advised: No symptoms or symptoms present, not severe. Ashley Garcia RN September 13, 2022 11:37 AM [facility] 06-21-2023 History of Present illness Narrative CDM Telephonic Outreach Provider Action/FYI Feeling much better post [facility] visit for rash/shingles. Drinking at least 48-64 oz. water/non caffeine beverages/day. Contacted for: Routine Telephonic Outreach Contact made with patient: Yes Patient identified by name and date of . Discussed care with patient Are you experiencing any new or worsening symptoms you need to talk about today? No Disease Specific Do you check your blood pressure at home? No Do you have new or worsening shortness of breath with activity? No Do you feel like you are dehydrated for any reason, including not being able to eat or drink normally, or having less urine/much darker urine than normal for you? No Do you check your daily weight at home? No Based on patient assessment coordinator, the following disposition is advised: No symptoms or symptoms present, not severe. Routed to: No Action Needed RUTHIE Education Provided this Outreach: No SDOH for food insecurity and transportation completed. No needs identified. Ashley Garcia RN September 13, 2022 11:33 AM and Goals/Falls/ADL Update Contact made with patient: Yes Patient identified by name and date of . Discussed care with: patient Goal Setting I would like to take some time today to discuss your personal health goals. Yes, patient has goals. Capture the goal the patient wants to accomplish: Lose . Does the goal align with programs offered at the [facility]? Yes Chronic Disease Management patient goals yes: Weight loss Most people know what to do to become healthier, yet struggle to put it into action on their own, It can be hard to maintain a healthy lifestyle, especially when life is so stressful. Can we connect you with a [facility] to find a program that could help you meet your goals? No Falls completed:Yes ADL's updated: Yes Are you experiencing any new or worsening symptoms you need to talk about today? No Based on patient assessment coordinator, the following disposition is advised: No symptoms or symptoms present, not severe. Ashley Garcia RN September 13, 2022 11:37 AM documented in this encounter [facility] 09-11-2022 Note HNO ID: [id number] Author: Rizwana Hoyt APRN.MANAGEMENT INTERN Service: ? Author Type: Nurse Practitioner Type: Progress Notes Filed: 09/11/2022 3:04 PM Note Text: Subjective Rash Pertinent negatives include no fever. Mateo Bedoya is a 77 year old female who presents with a rash on bilateral forearms present for the past few days. States she was working in her arm previous to rash appearing. She thinks it is either poison ellie or spider bites or shingles. Rash is present just above where her gardening gloves end. She also report recent numbness on the left side of her face near her lips and this is typical of a sensation she gets prior to a shingles outbreak. She had the shingles vaccine and this did help reduce the frequency of the shingles outbreaks. Review of Systems Constitutional: Negative for chills and fever. Respiratory: Negative. Cardiovascular: Negative. Skin: Positive for itching and rash. Neurological: Positive for tingling and sensory change. Negative for speech change, focal weakness and weakness. BP 116/62 Pulse 72 Temp 36.4 ?C (97.5 ?F) Resp 18 Wt 99.6 kg (219 lb 9.6 oz) LMP (LMP Unknown) SpO2 95% BMI 33.89 kg/m? PAST MEDICAL HISTORY Diagnosis Date artery spasm causes CP, she has nitro Benign neoplasm of brain (HCC) 2004 meningioma Carotid stenosis, asymptomatic, bilateral 10/02/2019 Dysthymic disorder Essential hypertension, benign Herpes zoster 10/26 Impaired fasting glucose 03/31 Obesity, unspecified Other and unspecified hyperlipidemia Pessary maintenance Urinary incontinence PAST SURGICAL HISTORY Procedure Laterality Date EXTRACTION, ERUPTED TOOTH OR EXPOSED ROOT (ELEVATION AND/OR FORCEPS REMOVAL) Walker teeth LAPAROSCOPY SURG CHOLECYSTECTOMY 90s Cholecystectomy, lap OOPHORECTOMY PARTIAL/TOTAL UNI/BI 80s Oophorectomy PAST SURGICAL HISTORY OF 80s 10 surgeries 14 abd tumors, all benign PAST SURGICAL HISTORY OF 12/16/2015 Dr. Reinoso, skin lesion removed PAST SURGICAL HISTORY OF Right 07/04/2016 right breast needle biopsy, benign - Dr. Reinoso PAST SURGICAL HISTORY OF N/A 05/23/2018 4 stents placed by [facility] PAST SURGICAL HISTORY OF N/A 08/14/2018 5th stent placed by [facility] PAST SURGICAL HISTORY OF Right right upper tooth implant PAST SURGICAL HISTORY OF 2021 Stent placed in Left Carotid Artery THYROIDECTOMY TOTAL/COMPLETE 2003 large nodule. Complete TOTAL ABDOMINAL HYSTERECT W/WO RMVL TUBE OVARY 80s Hysterectomy, BING TOTAL HIP JOINT REPLACEMENT Right 01/15/2020 [facility] ALLERGIES Bee Stings And Insect Bites [Other], Codeine, Morphine, Percocet [Acetaminophen], and Percodan [Aspirin] MEDICATIONS valACYclovir (VALTREX) 1 gramTake 1 tablet by mouth three times daily for 7 days.Disp: 21 tabletRfl: 0 triamcinolone (KENALOG) 0.025 % creamApply 1 application to affected area twice daily.Disp: 30 gRfl: 0 oxybutynin ER (DITROPAN XL) 15 mg 24 hr Extended Rel TabTake 1 tablet by mouth once daily.Disp: 90 tabletRfl: 1 gabapentin (NEURONTIN) 300 mg capsuleTake 2 capsules by mouth twice daily for 180 days.Disp: 360 capsuleRfl: 1 hydroCHLOROthiazide (HYDRODIURIL, ESIDRIX) 12.5 mg capsuleTake 1 capsule by mouth once daily.Disp: 90 capsuleRfl: 3 SYNTHROID 137 mcg tabletTake 1 tablet by mouth once daily. Take on empty stomach. For thyroid.Disp: 90 tabletRfl: 3 atorvastatin (LIPITOR) 80 mg tabletTake 1 tablet by mouth once daily.Disp: 30 tabletRfl: 11 clopidogrel (PLAVIX) 75 mg tabletTake 1 tablet by mouth once daily.Disp: 30 tabletRfl: 11 atenolol (TENORMIN) 100 mg tabletTake 1 tablet by mouth twice daily.Disp: 180 tabletRfl: 3 EPINEPHrine (EPIPEN) 0.3 mg/0.3 mL auto-injectorUse as directedDisp: 1 EachRfl: 1 nitroglycerin sublingual (NITROSTAT) 0.4 mg SL tabletDissolve 1 tablet under the tongue as needed. DISSOLVE ON TONGUE FOR CHEST PAIN. IF NO PAIN RELIEF, CALL 911Disp: 1 Bottle of 25Rfl: 2 aspirin 325 mg tabletTake 1 tablet by mouth once daily.Disp: 30 tabletRfl: 0 ketoconazole (NIZORAL) 2 % creamApply 1 application to affected area as needed.Disp: 60 gRfl: 5 losartan (COZAAR) 50 mg tabletTake 2 tablets by mouth once daily.Disp: Rfl: TUMS CALCIUM FOR LIFE BONE 750 MG ORAL CHEWTake (2) two per day.Disp: Rfl: 0 MULTIVITAMIN TABLETTake one(1) tablet daily.Disp: Rfl: 0 FAMILY HISTORY Problem Relation Age of Onset Allergies Mother Cancer Mother thyroid Allergies Father Heart Father Diabetes Father Diabetes Brother Diabetes Maternal Aunt Cervical Cancer Paternal Grandmother Social History Tobacco Use Smoking status: Never Smokeless tobacco: Never Vaping Use Vaping Use: Never used Substance Use Topics Alcohol use: Yes Comment: very rarely/ twice per year Drug use: No Objective Physical Exam Vitals and nursing note reviewed. Constitutional: General: She is not in acute distress. Appearance: Normal appearance. She is not ill-appearing. HENT: Head: Cardio (more content not included)... [facility] 09-11-2022 History of Present illness Narrative Images from the original note were not included. Subjective Rash Pertinent negatives include no fever. Mateo Bedoya is a 77 year old female who presents with a rash on bilateral forearms present for the past few days. States she was working in her arm previous to rash appearing. She thinks it is either poison ellie or spider bites or shingles. Rash is present just above where her gardening gloves end. She also report recent numbness on the left side of her face near her lips and this is typical of a sensation she gets prior to a shingles outbreak. She had the shingles vaccine and this did help reduce the frequency of the shingles outbreaks. Review of Systems Constitutional: Negative for chills and fever. Respiratory: Negative. Cardiovascular: Negative. Skin: Positive for itching and rash. Neurological: Positive for tingling and sensory change. Negative for speech change, focal weakness and weakness. BP 116/62 Pulse 72 Temp 36.4 C (97.5 F) Resp 18 Wt 99.6 kg (219 lb 9.6 oz) LMP (LMP Unknown) SpO2 95% BMI 33.89 kg/m PAST MEDICAL HISTORY Diagnosis Date artery spasm causes CP, she has nitro Benign neoplasm of brain (HCC) 2004 meningioma Carotid stenosis, asymptomatic, bilateral 10/02/2019 Dysthymic disorder Essential hypertension, benign Herpes zoster 10/26 Impaired fasting glucose 03/31 Obesity, unspecified Other and unspecified hyperlipidemia Pessary maintenance Urinary incontinence PAST SURGICAL HISTORY Procedure Laterality Date EXTRACTION, ERUPTED TOOTH OR EXPOSED ROOT (ELEVATION AND/OR FORCEPS REMOVAL) Walker teeth LAPAROSCOPY SURG CHOLECYSTECTOMY 90s Cholecystectomy, lap OOPHORECTOMY PARTIAL/TOTAL UNI/BI 80s Oophorectomy PAST SURGICAL HISTORY OF 80s 10 surgeries 14 abd tumors, all benign PAST SURGICAL HISTORY OF 12/16/2015 Dr. Reinoso, skin lesion removed PAST SURGICAL HISTORY OF Right 07/04/2016 right breast needle biopsy, benign - Dr. Reinoso PAST SURGICAL HISTORY OF N/A 05/23/2018 4 stents placed by [facility] PAST SURGICAL HISTORY OF N/A 08/14/2018 5th stent placed by [facility] PAST SURGICAL HISTORY OF Right right upper tooth implant PAST SURGICAL HISTORY OF 2021 Stent placed in Left Carotid Artery THYROIDECTOMY TOTAL/COMPLETE 2003 large nodule. Complete TOTAL ABDOMINAL HYSTERECT W/WO RMVL TUBE OVARY 80s Hysterectomy, BING TOTAL HIP JOINT REPLACEMENT Right 01/15/2020 [facility] ALLERGIES Bee Stings And Insect Bites [Other], Codeine, Morphine, Percocet [Acetaminophen], and Percodan [Aspirin] MEDICATIONS valACYclovir (VALTREX) 1 gram^Take 1 tablet by mouth three times daily for 7 days.^Disp: 21 tablet^Rfl: 0 triamcinolone (KENALOG) 0.025 % cream^Apply 1 application to affected area twice daily.^Disp: 30 g^Rfl: 0 oxybutynin ER (DITROPAN XL) 15 mg 24 hr Extended Rel Tab^Take 1 tablet by mouth once daily.^Disp: 90 tablet^Rfl: 1 gabapentin (NEURONTIN) 300 mg capsule^Take 2 capsules by mouth twice daily for 180 days.^Disp: 360 capsule^Rfl: 1 hydroCHLOROthiazide (HYDRODIURIL, ESIDRIX) 12.5 mg capsule^Take 1 capsule by mouth once daily.^Disp: 90 capsule^Rfl: 3 SYNTHROID 137 mcg tablet^Take 1 tablet by mouth once daily. Take on empty stomach. For thyroid.^Disp: 90 tablet^Rfl: 3 atorvastatin (LIPITOR) 80 mg tablet^Take 1 tablet by mouth once daily.^Disp: 30 tablet^Rfl: 11 clopidogrel (PLAVIX) 75 mg tablet^Take 1 tablet by mouth once daily.^Disp: 30 tablet^Rfl: 11 atenolol (TENORMIN) 100 mg tablet^Take 1 tablet by mouth twice daily.^Disp: 180 tablet^Rfl: 3 EPINEPHrine (EPIPEN) 0.3 mg/0.3 mL auto-injector^Use as directed^Disp: 1 Each^Rfl: 1 nitroglycerin sublingual (NITROSTAT) 0.4 mg SL tablet^Dissolve 1 tablet under the tongue as needed. DISSOLVE ON TONGUE FOR CHEST PAIN. IF NO PAIN RELIEF, CALL 911^Disp: 1 Bottle of 25^Rfl: 2 aspirin 325 mg tablet^Take 1 tablet by mouth once daily.^Disp: 30 tablet^Rfl: 0 ketoconazole (NIZORAL) 2 % cream^Apply 1 application to affected area as needed.^Disp: 60 g^Rfl: 5 losartan (COZAAR) 50 mg tablet^Take 2 tablets by mouth once daily.^Disp: ^Rfl: TUMS CALCIUM FOR LIFE BONE 750 MG ORAL CHEW^Take (2) two per day.^Disp: ^Rfl: 0 MULTIVITAMIN TABLET^Take one(1) tablet daily.^Disp: ^Rfl: 0 FAMILY HISTORY Problem Relation Age of Onset Allergies Mother Cancer Mother thyroid Allergies Father Heart Father Diabetes Father Diabetes Brother Diabetes Maternal Aunt Cervical Cancer Paternal Grandmother Social History Tobacco Use Smoking status: Never Smokeless tobacco: Never Vaping Use Vaping Use: Never used Substance Use Topics Alcohol use: Yes Comment: very rarely/ twice per year Drug use: No Objective Physical Exam Vitals and nursing note reviewed. Constitutional: General: She is not in acute distress. Appearance: Normal appearance. She is not ill-appearing. HENT: Head: Cardiovascular: Rate and Rhythm: Normal rate. Pulmonary: Effort: Pulmonary effort is normal. Skin: General: Skin is warm and dry. Capillary Refill: Capillary refill takes less than 2 seconds. Findings: Erythema and rash present. Neurological: Mental Status: She is alert. Last labs for kidney function: Component Latest Ref Rng & Units 01/06/2022 Protein, Total 6.3 - 8.0 g/dL 6.9 Albumin 3.9 - 4.9 g/dL 4.2 Calcium 8.5 - 10.2 mg/dL 9.7 Bilirubin, Total 0.2 - 1.3 mg/dL 0.4 Alkaline Phosphatase 34 - 123 U/L 126 (H) AST 13 - 35 U/L 15 ALT 7 - 38 U/L 14 Glucose 74 - 99 mg/dL 148 (H) BUN 7 - 21 mg/dL 19 Creatinine 0.58 - 0.96 mg/dL 0.99 (H) Sodium 136 - 144 mmol/L 141 Potassium 3.7 - 5.1 mmol/L 4.0 Chloride 97 - 105 mmol/L 102 CO2 22 - 30 mmol/L 28 Anion Gap 9 - 18 mmol/L 11 eGFR >=60 mL/min/1.73m 60 ASSESSMENT/PLAN: 1. Shingles (herpes zoster) polyneuropathy - ICD9: 053.13, ICD10: B02.23 (primary diagnosis) - VALACYCLOVIR 1 GRAM TABLET 2. Rash - ICD9: 782.1, ICD10: R21 - TRIAMCINOLONE ACETONIDE 0.025 % TOPICAL CREAM - Follow-up with your PCP in 3-5 days if symptoms have not improved or sooner if symptoms worsen - Discussed red flags and need for immediate medical evaluation if any occur. - Discussed supportive care treatment with fluids, rest and analgesia. - Discussed expected course of illness Rizwana Hoyt APRN.CNP documented in this encounter [facility] 09-11-2022 Instructions Rizwana Hoyt APRN.CNP - 09/11/2022 2:55 PM EDT ASSESSMENT/PLAN: 1. Shingles (herpes zoster) polyneuropathy - ICD9: 053.13, ICD10: B02.23 (primary diagnosis) - VALACYCLOVIR 1 GRAM TABLET 2. Rash - ICD9: 782.1, ICD10: R21 - TRIAMCINOLONE ACETONIDE 0.025 % TOPICAL CREAM - Follow-up with your PCP in 3-5 days if symptoms have not improved or sooner if symptoms worsen - Discussed red flags and need for immediate medical evaluation if any occur. - Discussed supportive care treatment with fluids, rest and analgesia. - Discussed expected course of illness Rizwana Hoyt APRN.MANAGEMENT INTERN NONSPECIFIC RASH: Our exam shows you have a rash which has no clear cause. Rashes can result from infections, allergies, or irritation of the skin by chemicals or other environmental factors. Rashes can also result from scratching or rubbing the skin too much to relieve itching. Further medical examination may be needed to identify the specific cause and proper treatment of your skin rash. You should treat your rash as recommended by your doctor. If you have itching, you should avoid scratching as much as possible, as this further damages the skin. Ask your doctor or pharmacist if you have any questions about what topical medicines may help relieve your symptoms. Call your doctor right away if your rash is not better in 2-3 days, if it worsens, or if there are signs of infection (increased pain, redness, drainage or pus). EXPRESS CARE PATIENT INFO SHINGLES Shingles (Herpes Zoster) What is shingles? Shingles is an infection caused by the same virus that causes chickenpox. This virus is called varicella zoster. You cannot develop shingles unless you have had a previous infection of chickenpox (usually as a child). Shingles is also called herpes zoster. This infection is most common in people over 60 years of age, but young people can have it as well. How does it occur? After you recover from chickenpox, the chickenpox virus is not destroyed. It moves back to the roots of your nerve cells (near the spinal cord) and becomes inactive (dormant). Later, if the virus is reactivated, the symptoms are called shingles. What exactly causes the reactivation of the virus is not known. A weakened immune system seems to allow reactivation of the virus. Advancing age and chronic use of cortisone-type drugs may trigger shingles. The virus may also become active again after the skin is injured or sunburned. Emotional stress seems to be a common trigger as well. What are the symptoms? The first sign of shingles is often burning, sharp pain, tingling, or numbness in or under your skin on one side of your body or face. The most common site is the back or upper abdomen. You may have severe itching or aching. You also may feel tired and ill with fever, chills, headache, and upset stomach. After several days, you will notice a rash of small, clear, fluid-filled blisters on reddened skin. Within 3 days after they appear, the blisters will turn yellow, then dry and crust over. Over the next 2 weeks the crusts will drop off, sometimes leaving small, pitted scars. Because they tend to follow nerve paths, the blisters are usually found in a line, often extending from the back or flank around to the abdomen, just on one side. Shingles usually doesn't cross the midline of the body. (The word shingles comes from the Latin word for belt or girdle.) The rash also may appear on one side of your face. Some people have painful eye inflammations and infections. Is shingles contagious? You can't get shingles from someone else, but you may get chickenpox from contact with shingles blisters if you have not had chickenpox before. The shingles virus is in the blister fluid. The virus can spread by direct contact with a blister. It can also be spread by indirect contact, for example, if you use a washcloth that has blister fluid on it. If you have shingles, avoid contact with infants, children, women, and adults who have never had chickenpox or the chickenpox shot until your blisters are completely dry. How is shingles diagnosed? Your health care provider will ask about your symptoms and examine you. Your provider may order lab tests to look for the virus in fluid from a blister. How is it treated? It is best to start treatment within 24 to 48 hours after symptoms start. Your health care provider may prescribe: -an antiviral drug, such as acyclovir, to speed recovery and lessen the chance of prolonged symptoms from nerve inflammation -painkillers for more serious discomfort if nonprescription painkillers are not helping enough -antibacterial salves or lotions to help prevent bacterial infection of the blisters -capsaicin cream for pain How long will the effects last? The rash from shingles will heal in 1 to 2 weeks and the pain or irritation will usually disappear within 3 to 5 weeks. If the virus damages a nerve, you may have pain, numbness, or tingling for months or even years after the rash is healed. This is a condition called postherpetic neuralgia. It is most likely to occur after a shingles outbreaks in people over 50 years old. Antiviral medicine prescribed at the time the shingles is diagnosed and taken for 7 days can help prevent this problem. How can I take care of myself? -Take a pain relief medicine such as acetaminophen. Take other medicine as prescribed by your health care provider. -Put a cool compress on the rash (such as a cool, moist washcloth). -Rest in bed during the early stages if you have fever and other symptoms. -Try to avoid having clothing or bed linens rubbing against the rash, which might irritate it. Call your health care provider if: -You develop worsening pain or fever. -The blisters show signs of bacterial infection, such as increasing pain or redness, or milky yellow drainage from the blister sites. -The blisters are close to the eyes. How can I help prevent shingles? -If you have never had chickenpox, you can get a shot to help prevent infection with the chickenpox virus. -You can protect your immune system and lessen your chances of getting shingles by trying to keep your stress under control documented in this encounter [facility] 08-31-2022 Note HNO ID: [id number] Author: Luanne Kent MD Service: ? Author Type: Physician Type: Progress Notes Filed: 08/31/2022 1:42 PM Note Text: Lingo Cleaner offered: Patient declinesJose Dumont is a 77 year old who presents for an annual gynecologic exam without complaints. Postmenopausal: Yes HRT use: No. Last Pap: prior to hysterectomy History of abnormal pap: No Last mammogram: 2022 normal Patient concerns for STD exposure: No. OB History T2 L2 SAB1 IAB0 Ectopic0 Multiple0 Live Births0 Pumper Gauger History LMP: LMP Unknown, Hysterectomy Age at Menarche: Age at First : Age at Menopause: Pumper Gauger History Comments: Sexual Activity: Not Currently; Male Contraception: No contraception data on record PAST MEDICAL HISTORY Diagnosis Date artery spasm causes CP, she has nitro Benign neoplasm of brain (HCC) 2004 meningioma Carotid stenosis, asymptomatic, bilateral 10/02/2019 Dysthymic disorder Essential hypertension, benign Herpes zoster 10/26 Impaired fasting glucose 03/31 Obesity, unspecified Other and unspecified hyperlipidemia Pessary maintenance Urinary incontinence PAST SURGICAL HISTORY Procedure Laterality Date EXTRACTION, ERUPTED TOOTH OR EXPOSED ROOT (ELEVATION AND/OR FORCEPS REMOVAL) Walker teeth LAPAROSCOPY SURG CHOLECYSTECTOMY 90s Cholecystectomy, lap OOPHORECTOMY PARTIAL/TOTAL UNI/BI 80s Oophorectomy PAST SURGICAL HISTORY OF 80s 10 surgeries 14 abd tumors, all benign PAST SURGICAL HISTORY OF 12/16/2015 Dr. Reinoso, skin lesion removed PAST SURGICAL HISTORY OF Right 07/04/2016 right breast needle biopsy, benign - Dr. Reinoso PAST SURGICAL HISTORY OF N/A 05/23/2018 4 stents placed by [facility] PAST SURGICAL HISTORY OF N/A 08/14/2018 5th stent placed by [facility] PAST SURGICAL HISTORY OF Right right upper tooth implant PAST SURGICAL HISTORY OF 2021 Stent placed in Left Carotid Artery THYROIDECTOMY TOTAL/COMPLETE 2003 large nodule. Complete TOTAL ABDOMINAL HYSTERECT W/WO RMVL TUBE OVARY 80s Hysterectomy, BING TOTAL HIP JOINT REPLACEMENT Right 01/15/2020 [facility] FAMILY HISTORY Problem Relation Age of Onset Allergies Mother Cancer Mother thyroid Allergies Father Heart Father Diabetes Father Diabetes Brother Diabetes Maternal Aunt Cervical Cancer Paternal Grandmother SOCIAL HISTORY Social History Tobacco Use Smoking status: Never Smokeless tobacco: Never Vaping Use Vaping Use: Never used Substance Use Topics Alcohol use: Yes Comment: very rarely/ twice per year Drug use: No REVIEW OF SYSTEMS Abdomen: No abdominal pain, nausea, vomiting, diarrhea, or constipation. No bloating, early satiety, indigestion, or increased flatulence. Bladder: No dysuria, gross hematuria, urinary frequency, urinary urgency, or incontinence Breast: No breast lumps, nipple d/c, overlying skin changes, redness or skin retraction Allergies and current medication updated:Yes EXAM: BP 102/62 Ht 5' 7.5 (1.72m) Wt 216 lb 14.4 oz (98.4kg) BMI 33.45 kg/(m2). GENERAL: pleasant, female in no apparent distress HEENT: Normocephalic, atraumatic, mucus membranes moist, and no lesions NECK: full range of motion DERMATOLOGY: Normal BREAST: soft, non-tender, symmetric, no dominant mass, normal nipple-areolar complex, no lymphadenopathy, and no nipple discharge CHEST: Normal inspiratory effort ABDOMEN: soft, non-tender, and no masses PELVIC: external genitalia atrophic, normal Bartholin's glands, urethra, [place]'s glands, no vulvar lesions, good vaginal support, physiologic discharge present, normal appearing perineal body and perianal region BIMANUAL: no adnexal masses and non-tender RECTOVAGINAL: deferred. NEURO: exam grossly non-focal EXTREMITIES: normal ASSESSMENT/PLAN: 1) Health maintenance: Pap/HPV screening no longer needed Mammogram up to date Nutrition, exercise and routine health maintenance exams reviewed. Colon cancer screening: up to date with screening TSH/lipids/glucose: followed by PCP BMD: followed by PCP Increased Ditropan. Discussed possible vaginal estrogen 2) Follow up one year or sooner as needed Luanne Kent DO [facility] 08-20-2022 Miscellaneous Notes August 21, 2022 PID: [id number] Mateo Bedoya [address] [place] [address] Dear Ms. Bedoya, We are pleased to inform you that the results of your recent breast imaging exam on 08/18/2022 are normal. Early detection of cancer is very important. We also understand recommendations regarding breast cancer screening are controversial. Please discuss with your primary care provider which strategy is best for you and whether a mammogram is right for you. Your imaging studies and report will be kept on file at [facility] as part of your permanent medical record and are available for your continuing care. Thank you for allowing us to help in meeting your health care needs. Sincerely, Dr. Mayers Interpreting Radiologist [facility] (Normal over 40) documented in this encounter [facility] 08-18-2022 Note HNO ID: [id number] Author: RT Shara(R) Service: ? Author Type: Technologist Type: Progress Notes Filed: 08/18/2022 1:01 PM Note Text: Radiology Service Progress Note PATIENT NAME: Mateo Bedoya DATE OF SERVICE: August 18, 2022 TIME: 1:00 PM PATIENT IDENTITY VERIFICATION COMPLETED USING TWO (2) IDENTIFIERS: Name and Date of confirmed by patient verbally. FALL SCREENING: Has the patient had 2 falls in the last year or 1 fall with injury or currently using an Ambulatory Assistive Device (Walker, Cane, Wheelchair, Crutches, etc.)? No PATIENT GENDER DATA: Female. status: : No status: NO. PATIENT RELEVANT IMPLANT DATA REVIEWED: Not Applicable RADIOLOGY DEPARTMENT: Mammography PERIPHERAL IV DATA: Not applicable SIGNED BY: RT Shara(José Miguel) August 18, 2022 1:00 PM [facility] 08-18-2022 History of Present illness Narrative Radiology Service Progress Note PATIENT NAME: Mateo Bedoya DATE OF SERVICE: August 18, 2022 TIME: 1:00 PM PATIENT IDENTITY VERIFICATION COMPLETED USING TWO (2) IDENTIFIERS: Name and Date of confirmed by patient verbally. FALL SCREENING: Has the patient had 2 falls in the last year or 1 fall with injury or currently using an Ambulatory Assistive Device (Walker, Cane, Wheelchair, Crutches, etc.)? No PATIENT GENDER DATA: Female. status: : No status: NO. PATIENT RELEVANT IMPLANT DATA REVIEWED: Not Applicable RADIOLOGY DEPARTMENT: Mammography PERIPHERAL IV DATA: Not applicable SIGNED BY: RT Shara(José Miguel) August 18, 2022 1:00 PM documented in this encounter [facility] 08-15-2022 Note Patient Outreach (AM [facility]) MATEO BEDOYA V ([id number]) 1945 F Date Time Provider Department 08/15/22 TAMEKA ARRIOLA During your visit today, we recorded the following information about you: Tameka Arriola RN 08/15/2022 11:40 AM Signed CDM Telephonic Outreach Provider Action/FYI Pt denies new or worsening CDM symtoms. Pt heard on the news a third booster for covid 19 is coming out for 65 and older, but has not been able to find it yet. Pharmacist said does not think it has come out yet. Advised patient if I become aware of it's availability I will let her know or she can call PCP office directly. Denies needs, questions, concerns at this time. End outreach Contacted for: Routine Telephonic Outreach Contact made with patient: Yes Patient identified by name and date of . Discussed care with patient Are you experiencing any new or worsening symptoms you need to talk about today? No Disease Specific Do you check your blood pressure at home? No Do you have new or worsening shortness of breath with activity? No Do you feel like you are dehydrated for any reason, including not being able to eat or drink normally, or having less urine/much darker urine than normal for you? No Do you check your daily weight at home? No Based on patient assessment coordinator, the following disposition is advised: No symptoms or symptoms present, not severe. Routed to: No Action Needed RUTHIE Education Provided this Outreach: No Tameka Arriola RN August 15, 2022 11:39 AM Allergies As of Date: 08/15/2022 Noted Allergy Reaction bee stings and insect bites [Othe*12/13/2005 7 - Swelling CODEINE 05/10/2004 8 - GI Upset MORPHINE 05/10/2004 14 - Other: See Comments Comments: Pt is unable to sleep PERCOCET (ACETAMINOPHEN) 05/10/2004 5 - Intolerance Comments: Increased and irregular heart rate PERCODAN (ASPIRIN) 05/10/2004 5 - Intolerance Comments: Increased and irregular heart rate Date Reviewed: 07/14/2022 Reviewed by: Lindsey Martinez Ma - Fully Assessed Reason for Visit: CDM [Other] Cmt: Telephonic outreach Prescriptions as of 08/15/2022 - gabapentin (NEURONTIN) 300 mg capsule Take 2 capsules by mouth twice daily for 180 days. - hydroCHLOROthiazide (HYDRODIURIL, ESIDRIX) 12.5 mg capsule Take 1 capsule by mouth once daily. - SYNTHROID 137 mcg tablet Take 1 tablet by mouth once daily. Take on empty stomach. For thyroid. - atorvastatin (LIPITOR) 80 mg tablet Take 1 tablet by mouth once daily. - clopidogrel (PLAVIX) 75 mg tablet Take 1 tablet by mouth once daily. - oxybutynin ER (DITROPAN XL) 10 mg 24 hr tablet Take 1 tablet by mouth once daily. - atenolol (TENORMIN) 100 mg tablet Take 1 tablet by mouth twice daily. - EPINEPHrine (EPIPEN) 0.3 mg/0.3 mL auto-injector Use as directed - nitroglycerin sublingual (NITROSTAT) 0.4 mg SL tablet Dissolve 1 tablet under the tongue as needed. DISSOLVE ON TONGUE FOR CHEST PAIN. IF NO PAIN RELIEF, CALL 911 - aspirin 325 mg tablet Take 1 tablet by mouth once daily. - ketoconazole (NIZORAL) 2 % cream Apply 1 application to affected area as needed. - losartan (COZAAR) 50 mg tablet Take 2 tablets by mouth once daily. - TUMS CALCIUM FOR LIFE BONE 750 MG ORAL CHEW Take (2) two per day. - MULTIVITAMIN TABLET Take one(1) tablet daily. Facility-Administered Medications as of 08/15/2022 - perflutren lipid microspheres 1.3 mL in NaCl (PF) 0.9% 10 mL injection (DEFINITY) - sodium chloride 0.9 % (flush) 10 mL (BD POSIFLUSH) Meds Comments as of 01/12/2022: Changed all Rx's to [facility]. 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] 05/10/2004 Essential hypertension, benign [I10] 12/16/2005 Elevated glucose [R73.09] 05/24/2012 Hypothyroidism [E03.9] 05/24/2012 Hyperlipidemia, mixed [E78.2] 05/24/2012 Female stress incontinence [N39.3] 08/23/2012 Acute medial meniscus tear of right knee [S83.2*10/23/2013 12/27/2020 Arthritis of knee, right [M17.11] 07/09/2014 Coronary artery disease involving [place] clay*01/09/2019 Carotid stenosis, asymptomatic, bilateral [I65.*10/02/2019 Carotid artery stenosis [I65.29] 10/21/2019 07/11/2021 Post-operative state [Z98.890] 10/22/2019 12/27/2020 GERD (gastroesophageal reflux disease) [K21.9] 01/13/2020 Prediabetes [R73.03] 01/13/2020 07/11/2021 Class 1 obesity due to excess calories with bod*01/13/2020 07/11/2021 Stage 3a chronic kidney disease [N18.31] 01/13/2020 Primary osteoarthritis of right hip [M16.11] 01/13/2020 OA (osteoarthritis) of hip [M16.9] 01/15/2020 Hypertensive kidney disease with stage 3a chron*12/27/2020 Type 2 diabetes mellitus with stage 3a chronic *12/27/2020 Carotid stenosis, left [I65.22] 07/19/2021 Encounter Status:Closed by TAMEKA ARRIOLA on 08/15/22 [facility] 08-15-2022 Note HNO ID: [id number] Author: Tameka Arriola RN Service: ? Author Type: Registered Nurse Type: Progress Notes Filed: 08/15/2022 11:40 AM Note Text: CDM Telephonic Outreach Provider Action/FYI Pt denies new or worsening CDM symtoms. Pt heard on the news a third booster for covid 19 is coming out for 65 and older, but has not been able to find it yet. Pharmacist said does not think it has come out yet. Advised patient if I become aware of it's availability I will let her know or she can call PCP office directly. Denies needs, questions, concerns at this time. End outreach Contacted for: Routine Telephonic Outreach Contact made with patient: Yes Patient identified by name and date of . Discussed care with patient Are you experiencing any new or worsening symptoms you need to talk about today? No Disease Specific Do you check your blood pressure at home? No Do you have new or worsening shortness of breath with activity? No Do you feel like you are dehydrated for any reason, including not being able to eat or drink normally, or having less urine/much darker urine than normal for you? No Do you check your daily weight at home? No Based on patient assessment coordinator, the following disposition is advised: No symptoms or symptoms present, not severe. Routed to: No Action Needed RUTHIE Education Provided this Outreach: No Tameka Arriola RN August 15, 2022 11:39 AM [facility] 08-14-2022 Note Patient Outreach (AM [facility] [place]) MATEO BEDOYA V ([id number]) 1945 F Date Time Provider Department 08/14/22 [facility]AMEKA ARRIOLA [facility] [place] During your visit today, we recorded the following information about you: Tameka Arriola RN 08/14/2022 11:29 AM Signed CD Telephonic Outreach Provider Action/TAYA Made call #1. NA/left vm. Contacted for: Routine Telephonic Outreach Contact made with patient: No, left message. Tameka Arriola RN August 14, 2022 11:29 AM Allergies As of Date: 08/14/2022 Noted Allergy Reaction bee stings and insect bites [Othe*12/13/2005 7 - Swelling CODEINE 05/10/2004 8 - GI Upset MORPHINE 05/10/2004 14 - Other: See Comments Comments: Pt is unable to sleep PERCOCET (ACETAMINOPHEN) 05/10/2004 5 - Intolerance Comments: Increased and irregular heart rate PERCODAN (ASPIRIN) 05/10/2004 5 - Intolerance Comments: Increased and irregular heart rate Date Reviewed: 07/14/2022 Reviewed by: Lindsey Martinez Ma - Fully Assessed Reason for Visit: CDM [Other] Cmt: Telephonic outreach Prescriptions as of 08/14/2022 - gabapentin (NEURONTIN) 300 mg capsule Take 2 capsules by mouth twice daily for 180 days. - hydroCHLOROthiazide (HYDRODIURIL, ESIDRIX) 12.5 mg capsule Take 1 capsule by mouth once daily. - SYNTHROID 137 mcg tablet Take 1 tablet by mouth once daily. Take on empty stomach. For thyroid. - atorvastatin (LIPITOR) 80 mg tablet Take 1 tablet by mouth once daily. - clopidogrel (PLAVIX) 75 mg tablet Take 1 tablet by mouth once daily. - oxybutynin ER (DITROPAN XL) 10 mg 24 hr tablet Take 1 tablet by mouth once daily. - atenolol (TENORMIN) 100 mg tablet Take 1 tablet by mouth twice daily. - EPINEPHrine (EPIPEN) 0.3 mg/0.3 mL auto-injector Use as directed - nitroglycerin sublingual (NITROSTAT) 0.4 mg SL tablet Dissolve 1 tablet under the tongue as needed. DISSOLVE ON TONGUE FOR CHEST PAIN. IF NO PAIN RELIEF, CALL 911 - aspirin 325 mg tablet Take 1 tablet by mouth once daily. - ketoconazole (NIZORAL) 2 % cream Apply 1 application to affected area as needed. - losartan (COZAAR) 50 mg tablet Take 2 tablets by mouth once daily. - TUMS CALCIUM FOR LIFE BONE 750 MG ORAL CHEW Take (2) two per day. - MULTIVITAMIN TABLET Take one(1) tablet daily. Facility-Administered Medications as of 08/14/2022 - perflutren lipid microspheres 1.3 mL in NaCl (PF) 0.9% 10 mL injection (DEFINITY) - sodium chloride 0.9 % (flush) 10 mL (BD POSIFLUSH) Meds Comments as of 01/12/2022: Changed all Rx's to [facility]. 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] 05/10/2004 Essential hypertension, benign [I10] 12/16/2005 Elevated glucose [R73.09] 05/24/2012 Hypothyroidism [E03.9] 05/24/2012 Hyperlipidemia, mixed [E78.2] 05/24/2012 Female stress incontinence [N39.3] 08/23/2012 Acute medial meniscus tear of right knee [S83.2*10/23/2013 12/27/2020 Arthritis of knee, right [M17.11] 07/09/2014 Coronary artery disease involving [place] clay*01/09/2019 Carotid stenosis, asymptomatic, bilateral [I65.*10/02/2019 Carotid artery stenosis [I65.29] 10/21/2019 07/11/2021 Post-operative state [Z98.890] 10/22/2019 12/27/2020 GERD (gastroesophageal reflux disease) [K21.9] 01/13/2020 Prediabetes [R73.03] 01/13/2020 07/11/2021 Class 1 obesity due to excess calories with bod*01/13/2020 07/11/2021 Stage 3a chronic kidney disease [N18.31] 01/13/2020 Primary osteoarthritis of right hip [M16.11] 01/13/2020 OA (osteoarthritis) of hip [M16.9] 01/15/2020 Hypertensive kidney disease with stage 3a chron*12/27/2020 Type 2 diabetes mellitus with stage 3a chronic *12/27/2020 Carotid stenosis, left [I65.22] 07/19/2021 Encounter Status:Closed by TAMEKA ARRIOLA on 08/14/22 [facility] 08-14-2022 Note HNO ID: [id number] Author: Tameka Arriola RN Service: ? Author Type: Registered Nurse Type: Progress Notes Filed: 08/14/2022 11:29 AM Note Text: M Telephonic Outreach Provider Action/TAYA Made call #1. NA/left vm. Contacted for: Routine Telephonic Outreach Contact made with patient: No, left message. Tameka Arriola RN August 14, 2022 11:29 AM [facility] 07-14-2022 Note HNO ID: [id number] Author: Alejandra Valle MD Service: ? Author Type: Physician Type: Progress Notes Filed: 07/14/2022 5:27 PM Note Text: Chief Complaint Patient presents with: F/U 6 Month HPI Mateo Bedoya is a 77 year old female who presents here today for 6 month follow up. Here with her . No bowel, Gi, or urinary issues. Declines wanting to complete colon cancer screening. Follows with [facility] Dr. Kent who prescribes Ditropan xl 10 mg daily for OAB. Pain: Controlled on Gabapentin 300 mg 2 pills BID. Stable with use of medication. CAD/Lipid: Follows with [facility] Dr. Man. Follows with [facility] Dr. Davey whom she sees next week. Tries to watch diet and exercise. Taking Plavix 75 mg daily and Lipitor 80 mg daily. Also taking Aspirin 325 mg once daily. DM: Denies checking BS at home, no hypoglycemic episodes and no neuropathy sx. Tries to control with lifestyle, not on any diabetic meds. Has denied medications in past as she wanted to control with lifestyle. Follows with [facility], scheduled to see them in August. HTN: Denies checking BP at home, no chest pains, dizziness, or SOB. Taking HCTZ 12.5 mg daily, Losartan 50 mg 2 pills once daily and Atenolol 100 mg BID. Still following with [facility], last seen 06/06/22. Follow up annually. Thyroid: Taking Synthroid 137 mcg daily. Stable on this dosage and no missed dosages. HM - Has Adv Dir/Living Will on file. Declines feeling down, depressed or hopeless; reviewed screen. Declines IFOBT. Past medical history, appointments, medications, allergies reviewed. Previous Medical History PAST MEDICAL HISTORY Diagnosis Date artery spasm causes CP, she has nitro Benign neoplasm of brain (HCC) 2004 meningioma Carotid stenosis, asymptomatic, bilateral 10/02/2019 Dysthymic disorder Essential hypertension, benign Herpes zoster 10/26 Impaired fasting glucose 03/31 Obesity, unspecified Other and unspecified hyperlipidemia Pessary maintenance Urinary incontinence Previous Surgical History PAST SURGICAL HISTORY Procedure Laterality Date EXTRACTION, ERUPTED TOOTH OR EXPOSED ROOT (ELEVATION AND/OR FORCEPS REMOVAL) Walker teeth LAPAROSCOPY SURG CHOLECYSTECTOMY 90s Cholecystectomy, lap OOPHORECTOMY PARTIAL/TOTAL UNI/BI 80s Oophorectomy PAST SURGICAL HISTORY OF 80s 10 surgeries 14 abd tumors, all benign PAST SURGICAL HISTORY OF 12/16/2015 Dr. Reinoso, skin lesion removed PAST SURGICAL HISTORY OF Right 07/04/2016 right breast needle biopsy, benign - Dr. Reinoso PAST SURGICAL HISTORY OF N/A 05/23/2018 4 stents placed by [facility] PAST SURGICAL HISTORY OF N/A 08/14/2018 5th stent placed by [facility] PAST SURGICAL HISTORY OF Right right upper tooth implant THYROIDECTOMY TOTAL/COMPLETE 2003 large nodule. Complete TOTAL ABDOMINAL HYSTERECT W/WO RMVL TUBE OVARY 80s Hysterectomy, BING TOTAL HIP JOINT REPLACEMENT Right 01/15/2020 [facility] Family History FAMILY HISTORY Problem Relation Age of Onset Allergies Mother Cancer Mother thyroid Allergies Father Heart Father Diabetes Father Diabetes Brother Diabetes Maternal Aunt Cervical Cancer Paternal Grandmother Patient Allergies ALLERGIES Allergen Reactions Bee Stings And Inse* Swelling Codeine GI Upset Morphine Other: See Comments Pt is unable to sleep Percocet [Acetamino* Intolerance Increased and irregular heart rate Percodan [Aspirin] Intolerance Increased and irregular heart rate Current Medications Current Outpatient Medications on File Prior to Visit Medication Sig gabapentin (NEURONTIN) 300 mg capsule Take 2 capsules by mouth twice daily for 180 days. hydroCHLOROthiazide (HYDRODIURIL, ESIDRIX) 12.5 mg capsule Take 1 capsule by mouth once daily. SYNTHROID 137 mcg tablet Take 1 tablet by mouth once daily. Take on empty stomach. For thyroid. atorvastatin (LIPITOR) 80 mg tablet Take 1 tablet by mouth once daily. clopidogrel (PLAVIX) 75 mg tablet Take 1 tablet by mouth once daily. oxybutynin ER (DITROPAN XL) 10 mg 24 hr tablet Take 1 tablet by mouth once daily. atenolol (TENORMIN) 100 mg tablet Take 1 tablet by mouth twice daily. EPINEPHrine (EPIPEN) 0.3 mg/0.3 mL auto-injector Use as directed nitroglycerin sublingual (NITROSTAT) 0.4 mg SL tablet Dissolve 1 tablet under the tongue as needed. DISSOLVE ON TONGUE FOR CHEST PAIN. IF NO PAIN RELIEF, CALL 911 aspirin 325 mg tablet Take 1 tablet by mouth once daily. ketoconazole (NIZORAL) 2 % cream Apply 1 application to affected area as needed. losartan (COZAAR) 50 mg tablet Take 2 tablets by mouth once daily. TUMS CALCIUM FOR LIFE BONE 750 MG ORAL CHEW Take (2) two per day. MULTIVITAMIN TABLET Take one(1) tablet daily. Current Facility-Administered Medications on File Prior to Visit Medication perflutren lipid microspheres 1.3 mL in NaCl (PF) 0.9% 10 mL injection (DEFINITY) sodium chloride 0.9 % (flush) 10 mL (BD POSIFLUSH (more content not included)... [facility] 07-13-2022 Note HNO ID: [id number] Author: Tameka Arriola RN Service: ? Author Type: Registered Nurse Type: Progress Notes Filed: 07/13/2022 3:54 PM Note Text: CDM Telephonic Outreach Provider Action/FYI Pt denies new or worsening CDM symptoms. Pt states has seen all her doctors recently and all saying she is doing well. Denies needs, questions, concerns at this time. Contacted for: Routine Telephonic Outreach Contact made with patient: Yes Patient identified by name and date of . Discussed care with patient Are you experiencing any new or worsening symptoms you need to talk about today? No Disease Specific Do you check your blood pressure at home? No Do you have new or worsening shortness of breath with activity? No Do you feel like you are dehydrated for any reason, including not being able to eat or drink normally, or having less urine/much darker urine than normal for you? No Do you check your daily weight at home? No Based on patient assessment coordinator, the following disposition is advised: Symptoms present, not severe. Routed to: No Action Needed RUTHIE Education Provided this Outreach: No Tameka Arriola RN July 13, 2022 3:54 PM [facility] 07-13-2022 History of Present illness Narrative CDM Telephonic Outreach Provider Action/FYI Pt denies new or worsening CDM symptoms. Pt states has seen all her doctors recently and all saying she is doing well. Denies needs, questions, concerns at this time. Contacted for: Routine Telephonic Outreach Contact made with patient: Yes Patient identified by name and date of . Discussed care with patient Are you experiencing any new or worsening symptoms you need to talk about today? No Disease Specific Do you check your blood pressure at home? No Do you have new or worsening shortness of breath with activity? No Do you feel like you are dehydrated for any reason, including not being able to eat or drink normally, or having less urine/much darker urine than normal for you? No Do you check your daily weight at home? No Based on patient assessment coordinator, the following disposition is advised: Symptoms present, not severe. Routed to: No Action Needed RUTHIE Education Provided this Outreach: No Tameka Arriola RN July 13, 2022 3:54 PM documented in this encounter [facility] 07-13-2022 Note Patient Outreach (AM [facility] [place] MATEO BEDOYA V ([id number]) 1945 F Date Time Provider Department 07/13/22 TAMEKA ARRIOLA During your visit today, we recorded the following information about you: Tameka Arriola RN 07/13/2022 3:54 PM Signed CDM Telephonic Outreach Provider Action/FYI Pt denies new or worsening CDM symptoms. Pt states sh has seen all her doctors recently and all saying she is doing well. Denies needs, questions, concerns at this time. Contacted for: Routine Telephonic Outreach Contact made with patient: Yes Patient identified by name and date of . Discussed care with patient Are you experiencing any new or worsening symptoms you need to talk about today? No Disease Specific Do you check your blood pressure at home? No Do you have new or worsening shortness of breath with activity? No Do you feel like you are dehydrated for any reason, including not being able to eat or drink normally, or having less urine/much darker urine than normal for you? No Do you check your daily weight at home? No Based on patient assessment coordinator, the following disposition is advised: Symptoms present, not severe. Routed to: No Action Needed RUTHIE Education Provided this Outreach: No Tameka Arriola RN July 13, 2022 3:54 PM Allergies As of Date: 07/13/2022 Noted Allergy Reaction bee stings and insect bites [Othe*12/13/2005 7 - Swelling CODEINE 05/10/2004 8 - GI Upset MORPHINE 05/10/2004 14 - Other: See Comments Comments: Pt is unable to sleep PERCOCET (ACETAMINOPHEN) 05/10/2004 5 - Intolerance Comments: Increased and irregular heart rate PERCODAN (ASPIRIN) 05/10/2004 5 - Intolerance Comments: Increased and irregular heart rate Date Reviewed: 07/12/2022 Reviewed by: Barbara Betancur MA - Fully Assessed Reason for Visit: CDM [Other] Cmt: Telephonic outreach Prescriptions as of 07/13/2022 - gabapentin (NEURONTIN) 300 mg capsule Take 2 capsules by mouth twice daily for 180 days. - hydroCHLOROthiazide (HYDRODIURIL, ESIDRIX) 12.5 mg capsule Take 1 capsule by mouth once daily. - SYNTHROID 137 mcg tablet Take 1 tablet by mouth once daily. Take on empty stomach. For thyroid. - atorvastatin (LIPITOR) 80 mg tablet Take 1 tablet by mouth once daily. - clopidogrel (PLAVIX) 75 mg tablet Take 1 tablet by mouth once daily. - oxybutynin ER (DITROPAN XL) 10 mg 24 hr tablet Take 1 tablet by mouth once daily. - atenolol (TENORMIN) 100 mg tablet Take 1 tablet by mouth twice daily. - EPINEPHrine (EPIPEN) 0.3 mg/0.3 mL auto-injector Use as directed - nitroglycerin sublingual (NITROSTAT) 0.4 mg SL tablet Dissolve 1 tablet under the tongue as needed. DISSOLVE ON TONGUE FOR CHEST PAIN. IF NO PAIN RELIEF, CALL 911 - aspirin 325 mg tablet Take 1 tablet by mouth once daily. - ketoconazole (NIZORAL) 2 % cream Apply 1 application to affected area as needed. - losartan (COZAAR) 50 mg tablet Take 2 tablets by mouth once daily. - TUMS CALCIUM FOR LIFE BONE 750 MG ORAL CHEW Take (2) two per day. - MULTIVITAMIN TABLET Take one(1) tablet daily. Facility-Administered Medications as of 07/13/2022 - perflutren lipid microspheres 1.3 mL in NaCl (PF) 0.9% 10 mL injection (DEFINITY) - sodium chloride 0.9 % (flush) 10 mL (BD POSIFLUSH) Meds Comments as of 01/12/2022: Changed all Rx's to [facility]. 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] 05/10/2004 Essential hypertension, benign [I10] 12/16/2005 Elevated glucose [R73.09] 05/24/2012 Hypothyroidism [E03.9] 05/24/2012 Hyperlipidemia, mixed [E78.2] 05/24/2012 Female stress incontinence [N39.3] 08/23/2012 Acute medial meniscus tear of right knee [S83.2*10/23/2013 12/27/2020 Arthritis of knee, right [M17.11] 07/09/2014 Coronary artery disease involving [place] clay*01/09/2019 Carotid stenosis, asymptomatic, bilateral [I65.*10/02/2019 Carotid artery stenosis [I65.29] 10/21/2019 07/11/2021 Post-operative state [Z98.890] 10/22/2019 12/27/2020 GERD (gastroesophageal reflux disease) [K21.9] 01/13/2020 Prediabetes [R73.03] 01/13/2020 07/11/2021 Class 1 obesity due to excess calories with bod*01/13/2020 07/11/2021 Stage 3a chronic kidney disease [N18.31] 01/13/2020 Primary osteoarthritis of right hip [M16.11] 01/13/2020 OA (osteoarthritis) of hip [M16.9] 01/15/2020 Hypertensive kidney disease with stage 3a chron*12/27/2020 Type 2 diabetes mellitus with stage 3a chronic *12/27/2020 Carotid stenosis, left [I65.22] 07/19/2021 Encounter Status:Closed by TAMEKA ARRIOLA on 07/13/22 [facility] 07-12-2022 Note HNO ID: [id number] Author: Jen Mary Service: ? Author Type: ? Type: Progress Notes Filed: 07/12/2022 6:12 PM Note Text: Summary: I year follow up [facility] # [id number] Study Name: Mesfin Knott PI: Claudia Wilson Study Visit: Follow- up Visit I met with the patient for the 1 year follow up for the MickeyReena Study. Reaffirmed that the patient still wishes to participate in the study and continues to consent to the study. Has the patient had any changes in patient?s health since the last study visit? No Medications and allergy lists updated and current. Has the patient had any outside hospitalizations/ER visits: No NIHSS completed per protocol: Yes NIHSS 1a. Mental Status - LOC: 0 =Alert; keenly responsive 1b. LOC Questions: 0 =Answers both questions correctly. 1c, LOC Commands: 0 =Performs both tasks correctly. 2. Gaze: 0 =Normal 3. Visual: 0 =No visual loss 4. Facial Palsy: 0 =Normal symmetrical movements 5a Motor Left Arm: 0 =No drift; limb holds 90 (or 45)degrees for full 10 seconds 5b. Motor Right Arm: 0 =No drift; limb holds 90 (or 45)degrees for full 10 seconds 6a. Motor Left Le =No drift; leg holds 30-degree position for full 5 seconds. 6b. Motor Right Le =No drift; leg holds 30-degree position for full 5 seconds. 7. Limb Ataxia: 0 =Absent 8. Sensory: 0 =No sensory loss 9. Best Language: 0 =No aphasia; normal 10. Dysarthria: 0 =Normal 11. Extinction and Inattention: 0 =No abnormality Distal Motor Function assesment completed per protocol: Yes: Distal Motor Left arm: 0 = Normal, No Flexion 5 seconds Right arm: 0 = Normal, No Flexion 5 seconds Gait assessment completed per protocol: Yes: Normal Modified Lynn completed per protocol: Yes: 0 = No symptoms Discussed with the patient the importance of follow up in the study. Patient verbalized understanding. Next study visit will be in 1 year in clinic for her 2 year follow up Patient contact information reaffirmed and updated. Coordinator contact information provided to the patient. Education provided: Follow up requirements/schedule Materials dispensed: None Learning Support Services Director: Jen Mary RN Pager #: [phone] [facility] 07-12-2022 History of Present illness Narrative Summary: I year follow up Mickey Gonzalez # [id number] Study Name: Mesfin Sophiasandra PI: Claudia Wilson Study Visit: Follow- up Visit I met with the patient for the 1 year follow up for the [place] Study. Reaffirmed that the patient still wishes to participate in the study and continues to consent to the study. Has the patient had any changes in patient s health since the last study visit? No Medications and allergy lists updated and current. Has the patient had any outside hospitalizations/ER visits: No NIHSS completed per protocol: Yes NIHSS 1a. Mental Status - LOC: 0 =Alert; keenly responsive 1b. LOC Questions: 0 =Answers both questions correctly. 1c, LOC Commands: 0 =Performs both tasks correctly. 2. Gaze: 0 =Normal 3. Visual: 0 =No visual loss 4. Facial Palsy: 0 =Normal symmetrical movements 5a Motor Left Arm: 0 =No drift; limb holds 90 (or 45)degrees for full 10 seconds 5b. Motor Right Arm: 0 =No drift; limb holds 90 (or 45)degrees for full 10 seconds 6a. Motor Left Le =No drift; leg holds 30-degree position for full 5 seconds. 6b. Motor Right Le =No drift; leg holds 30-degree position for full 5 seconds. 7. Limb Ataxia: 0 =Absent 8. Sensory: 0 =No sensory loss 9. Best Language: 0 =No aphasia; normal 10. Dysarthria: 0 =Normal 11. Extinction and Inattention: 0 =No abnormality Distal Motor Function assesment completed per protocol: Yes: Distal Motor Left arm: 0 = Normal, No Flexion 5 seconds Right arm: 0 = Normal, No Flexion 5 seconds Gait assessment completed per protocol: Yes: Normal Modified Codie completed per protocol: Yes: 0 = No symptoms Discussed with the patient the importance of follow up in the study. Patient verbalized understanding. Next study visit will be in 1 year in clinic for her 2 year follow up Patient contact information reaffirmed and updated. Coordinator contact information provided to the patient. Education provided: Follow up requirements/schedule Materials dispensed: None Learning Support Services Director: Jen Mary RN Pager #: [phone] documented in this encounter [facility] 07-12-2022 Note HNO ID: [id number] Author: Diomedes Davey MD Service: ? Author Type: Physician Type: Progress Notes Filed: 07/13/2022 10:20 AM Note Text: [facility] DEPARTMENT OF VASCULAR SURGERY OUTPATIENT VISIT DATE July 12, 2022 OUTPATIENT VISIT TYPE ESTABLISHED SERVICE DATE: 07/12/2022 SERVICE TIME: 3:36 PM PRIMARY CARE PHYSICIAN: Alejandra Valle MD HISTORY OF PRESENT ILLNESS: Ms. Bedoya is a 77 year old female who presents today for a vascular surgery follow-up visit s/p LICA stent 07/19/21. She denies any signs or symptoms of TIA/CVA or amaurosis fugax. Overall she has been feeling well and has no complaints today. Remains on ASA 325mg and Plavix without issues. PAST MEDICAL HISTORY Diagnosis Date artery spasm causes CP, she has nitro Benign neoplasm of brain (HCC) 2004 meningioma Carotid stenosis, asymptomatic, bilateral 10/02/2019 Dysthymic disorder Essential hypertension, benign Herpes zoster 10/26 Impaired fasting glucose 03/31 Obesity, unspecified Other and unspecified hyperlipidemia Pessary maintenance Urinary incontinence PAST SURGICAL HISTORY Procedure Laterality Date EXTRACTION, ERUPTED TOOTH OR EXPOSED ROOT (ELEVATION AND/OR FORCEPS REMOVAL) Walker teeth LAPAROSCOPY SURG CHOLECYSTECTOMY 90s Cholecystectomy, lap OOPHORECTOMY PARTIAL/TOTAL UNI/BI 80s Oophorectomy PAST SURGICAL HISTORY OF 80s 10 surgeries 14 abd tumors, all benign PAST SURGICAL HISTORY OF 12/16/2015 Dr. Reinoso, skin lesion removed PAST SURGICAL HISTORY OF Right 07/04/2016 right breast needle biopsy, benign - Dr. Reinoso PAST SURGICAL HISTORY OF N/A 05/23/2018 4 stents placed by [facility] PAST SURGICAL HISTORY OF N/A 08/14/2018 5th stent placed by [facility] PAST SURGICAL HISTORY OF Right right upper tooth implant THYROIDECTOMY TOTAL/COMPLETE 2004 large nodule. Complete TOTAL ABDOMINAL HYSTERECT W/WO RMVL TUBE OVARY 80s Hysterectomy, BING TOTAL HIP JOINT REPLACEMENT Right 01/15/2020 [facility] SOCIAL HISTORY Social History Tobacco Use Smoking status: Never Smokeless tobacco: Never Vaping Use Vaping Use: Never used Substance Use Topics Alcohol use: Yes Comment: very rarely/ twice per year Drug use: No MEDICATIONS: gabapentin (NEURONTIN) 300 mg capsuleTake 2 capsules by mouth twice daily for 180 days.Disp: 360 capsuleRfl: 1 hydroCHLOROthiazide (HYDRODIURIL, ESIDRIX) 12.5 mg capsuleTake 1 capsule by mouth once daily.Disp: 90 capsuleRfl: 3 SYNTHROID 137 mcg tabletTake 1 tablet by mouth once daily. Take on empty stomach. For thyroid.Disp: 90 tabletRfl: 3 atorvastatin (LIPITOR) 80 mg tabletTake 1 tablet by mouth once daily.Disp: 30 tabletRfl: 11 clopidogrel (PLAVIX) 75 mg tabletTake 1 tablet by mouth once daily.Disp: 30 tabletRfl: 11 oxybutynin ER (DITROPAN XL) 10 mg 24 hr tabletTake 1 tablet by mouth once daily.Disp: 90 tabletRfl: 3 atenolol (TENORMIN) 100 mg tabletTake 1 tablet by mouth twice daily.Disp: 180 tabletRfl: 3 EPINEPHrine (EPIPEN) 0.3 mg/0.3 mL auto-injectorUse as directedDisp: 1 EachRfl: 1 nitroglycerin sublingual (NITROSTAT) 0.4 mg SL tabletDissolve 1 tablet under the tongue as needed. DISSOLVE ON TONGUE FOR CHEST PAIN. IF NO PAIN RELIEF, CALL 911Disp: 1 Bottle of 25Rfl: 2 aspirin 325 mg tabletTake 1 tablet by mouth once daily.Disp: 30 tabletRfl: 0 ketoconazole (NIZORAL) 2 % creamApply 1 application to affected area as needed.Disp: 60 gRfl: 5 losartan (COZAAR) 50 mg tabletTake 2 tablets by mouth once daily.Disp: Rfl: TUMS CALCIUM FOR LIFE BONE 750 MG ORAL CHEWTake (2) two per day.Disp: Rfl: 0 MULTIVITAMIN TABLETTake one(1) tablet daily.Disp: Rfl: 0 ALLERGIES: ALLERGIES Allergen Reactions Bee Stings And Inse* Swelling Codeine GI Upset Morphine Other: See Comments Pt is unable to sleep Percocet [Acetamino* Intolerance Increased and irregular heart rate Percodan [Aspirin] Intolerance Increased and irregular heart rate PHYSICAL EXAM: BP 133/62 Pulse 71 LMP (LMP Unknown) General: Alert and oriented Integumentary: Normal color, no rash, no lesions. HEENT: EOM, pupils equal, round and reactive. Cardiovascular: Normal S1 AND S2, no rubs, murmurs or gallops. No JVD., Pulse regular. Lungs: Normal breath sounds, no wheezes or crackles. Abdomen: Soft, non-tender, no rigidity. Extremities: No deformity, no edema or tenderness, no joint swelling or clubbing. Neurological: Normal cognition and motor skills. Vascular: Radial Pulse Right: Normal - Left: Normal Diagnostic tests reviewed for today's visit: 07/12/22 carotid US: FINDINGS -------- RIGHT SIDE Common carotid artery: Origin: PSV: 120 cm/s. EDV: 22 cm/s. Proximal: PSV: 98 cm/s. EDV: 18 cm/s. Mid: PSV: 93 cm/s. EDV: 19 cm/s. Distal: PSV: 84 cm/s. EDV: 18 cm/s. Mild heterogeneous plaque at distal. Internal carotid artery: Origin: PSV: 83 cm/s. EDV: 23 cm/s. Proximal: PSV: 100 cm/s. EDV: 29 cm/s. Mid: PSV: 14 (more content not included)... [facility] 07-12-2022 History of Present illness Narrative Images from the original note were not included. [facility] DEPARTMENT OF VASCULAR SURGERY OUTPATIENT VISIT DATE July 12, 2022 OUTPATIENT VISIT TYPE ESTABLISHED SERVICE DATE: 07/12/2022 SERVICE TIME: 3:36 PM PRIMARY CARE PHYSICIAN: Alejandra Valle MD HISTORY OF PRESENT ILLNESS: Ms. Bedoya is a 77 year old female who presents today for a vascular surgery follow-up visit s/p LICA stent 07/19/21. She denies any signs or symptoms of TIA/CVA or amaurosis fugax. Overall she has been feeling well and has no complaints today. Remains on ASA 325mg and Plavix without issues. PAST MEDICAL HISTORY Diagnosis Date artery spasm causes CP, she has nitro Benign neoplasm of brain (HCC) 2004 meningioma Carotid stenosis, asymptomatic, bilateral 10/02/2019 Dysthymic disorder Essential hypertension, benign Herpes zoster 10/26 Impaired fasting glucose 03/31 Obesity, unspecified Other and unspecified hyperlipidemia Pessary maintenance Urinary incontinence PAST SURGICAL HISTORY Procedure Laterality Date EXTRACTION, ERUPTED TOOTH OR EXPOSED ROOT (ELEVATION AND/OR FORCEPS REMOVAL) Walker teeth LAPAROSCOPY SURG CHOLECYSTECTOMY 90s Cholecystectomy, lap OOPHORECTOMY PARTIAL/TOTAL UNI/BI 80s Oophorectomy PAST SURGICAL HISTORY OF 80s 10 surgeries 14 abd tumors, all benign PAST SURGICAL HISTORY OF 12/16/2015 Dr. Reinoso, skin lesion removed PAST SURGICAL HISTORY OF Right 07/04/2016 right breast needle biopsy, benign - Dr. Reinoso PAST SURGICAL HISTORY OF N/A 05/23/2018 4 stents placed by [facility] PAST SURGICAL HISTORY OF N/A 08/14/2018 5th stent placed by [facility] PAST SURGICAL HISTORY OF Right right upper tooth implant THYROIDECTOMY TOTAL/COMPLETE 2003 large nodule. Complete TOTAL ABDOMINAL HYSTERECT W/WO RMVL TUBE OVARY 80s Hysterectomy, BING TOTAL HIP JOINT REPLACEMENT Right 01/15/2020 [facility] SOCIAL HISTORY Social History Tobacco Use Smoking status: Never Smokeless tobacco: Never Vaping Use Vaping Use: Never used Substance Use Topics Alcohol use: Yes Comment: very rarely/ twice per year Drug use: No MEDICATIONS: gabapentin (NEURONTIN) 300 mg capsule^Take 2 capsules by mouth twice daily for 180 days.^Disp: 360 capsule^Rfl: 1 hydroCHLOROthiazide (HYDRODIURIL, ESIDRIX) 12.5 mg capsule^Take 1 capsule by mouth once daily.^Disp: 90 capsule^Rfl: 3 SYNTHROID 137 mcg tablet^Take 1 tablet by mouth once daily. Take on empty stomach. For thyroid.^Disp: 90 tablet^Rfl: 3 atorvastatin (LIPITOR) 80 mg tablet^Take 1 tablet by mouth once daily.^Disp: 30 tablet^Rfl: 11 clopidogrel (PLAVIX) 75 mg tablet^Take 1 tablet by mouth once daily.^Disp: 30 tablet^Rfl: 11 oxybutynin ER (DITROPAN XL) 10 mg 24 hr tablet^Take 1 tablet by mouth once daily.^Disp: 90 tablet^Rfl: 3 atenolol (TENORMIN) 100 mg tablet^Take 1 tablet by mouth twice daily.^Disp: 180 tablet^Rfl: 3 EPINEPHrine (EPIPEN) 0.3 mg/0.3 mL auto-injector^Use as directed^Disp: 1 Each^Rfl: 1 nitroglycerin sublingual (NITROSTAT) 0.4 mg SL tablet^Dissolve 1 tablet under the tongue as needed. DISSOLVE ON TONGUE FOR CHEST PAIN. IF NO PAIN RELIEF, CALL 911^Disp: 1 Bottle of 25^Rfl: 2 aspirin 325 mg tablet^Take 1 tablet by mouth once daily.^Disp: 30 tablet^Rfl: 0 ketoconazole (NIZORAL) 2 % cream^Apply 1 application to affected area as needed.^Disp: 60 g^Rfl: 5 losartan (COZAAR) 50 mg tablet^Take 2 tablets by mouth once daily.^Disp: ^Rfl: TUMS CALCIUM FOR LIFE BONE 750 MG ORAL CHEW^Take (2) two per day.^Disp: ^Rfl: 0 MULTIVITAMIN TABLET^Take one(1) tablet daily.^Disp: ^Rfl: 0 ALLERGIES: ALLERGIES Allergen Reactions Bee Stings And Inse* Swelling Codeine GI Upset Morphine Other: See Comments Pt is unable to sleep Percocet [Acetamino* Intolerance Increased and irregular heart rate Percodan [Aspirin] Intolerance Increased and irregular heart rate PHYSICAL EXAM: BP 133/62 Pulse 71 LMP (LMP Unknown) General: Alert and oriented Integumentary: Normal color, no rash, no lesions. HEENT: EOM, pupils equal, round and reactive. Cardiovascular: Normal S1 & S2, no rubs, murmurs or gallops. No JVD., Pulse regular. Lungs: Normal breath sounds, no wheezes or crackles. Abdomen: Soft, non-tender, no rigidity. Extremities: No deformity, no edema or tenderness, no joint swelling or clubbing. Neurological: Normal cognition and motor skills. Vascular: Radial Pulse Right: Normal - Left: Normal Diagnostic tests reviewed for today's visit: 07/12/22 carotid US: FINDINGS -------- RIGHT SIDE Common carotid artery: Origin: PSV: 120 cm/s. EDV: 22 cm/s. Proximal: PSV: 98 cm/s. EDV: 18 cm/s. Mid: PSV: 93 cm/s. EDV: 19 cm/s. Distal: PSV: 84 cm/s. EDV: 18 cm/s. Mild heterogeneous plaque at distal. Internal carotid artery: Origin: PSV: 83 cm/s. EDV: 23 cm/s. Proximal: PSV: 100 cm/s. EDV: 29 cm/s. Mid: PSV: 142 cm/s. EDV: 46 cm/s. Distal: PSV: 101 cm/s. EDV: 35 cm/s. Mild heterogeneous plaque at origin. ICA/CCA Ratio: 1.7 External carotid artery: Proximal: PSV: 178 cm/s. EDV: 13 cm/s. Subclavian artery: Origin: PSV: 139 cm/s. EDV: 0 cm/s. Innominate artery: PSV: 78 cm/s. EDV: 0 cm/s. Vertebral artery: PSV: 73 cm/s. EDV: 12 cm/s. LEFT SIDE Common carotid artery: Proximal: PSV: 74 cm/s. EDV: 20 cm/s. Mid: PSV: 53 cm/s. EDV: 18 cm/s. Distal: PSV: 66 cm/s. EDV: 21 cm/s. Internal carotid artery: Origin: PSV: 60 cm/s. EDV: 17 cm/s. Proximal: PSV: 73 cm/s. EDV: 22 cm/s. Mid: PSV: 99 cm/s. EDV: 25 cm/s. Distal: PSV: 104 cm/s. EDV: 26 cm/s. ICA/CCA Ratio: 1.6 External carotid artery: Origin: PSV: 344 cm/s. EDV: 40 cm/s. Proximal: PSV: 35 cm/s. EDV: 3 cm/s. Subclavian artery: Proximal: PSV: 167 cm/s. EDV: 0 cm/s. Vertebral artery: PSV: 39 cm/s. EDV: 8 cm/s. IMPRESSION Compared to prior study of 01/18/2022, unable to appreciate elevated velocities in the 60-79% stenosis criteria on today's exam; no significant change. RIGHT SIDE Common carotid artery: Plaque visualized without evidence of hemodynamically significant stenosis. Internal carotid artery: 40-59% stenosis. Tortuous vessel from mid to distal . Minimal plaque noted at origin with elevated velocities appreciated mid vessel. Degree of stenosis appears overestimated due to tortuosity. Vertebral artery: Patent and antegrade flow noted. LEFT SIDE Common carotid artery: Patent. Stent noted at distal . Internal carotid artery stent: Patent, no hemodynamically significant restenosis. Stent noted from origin to proximal . External carotid artery: Elevated velocities noted; no plaque visualized. Likely due to overlapping stent. Vertebral artery: Patent and antegrade flow noted. IMPRESSION: Ms. Bedoya is a 77 year old female with asymptomatic bilateral carotid stenosis s/p LICA stent 07/19/21. RADHA 40-59% stenosis and patent LICA stent on duplex today. PLAN and RECOMMENDATIONS: -Follow up in 1 year with carotid duplex -Continue ASA 325mg, Plavix and statin Janice Vo MD Vascular Surgery Fellow PGY-7 SIGNATURE: Diomedes Davey MD PATIENT NAME: Mateo Bedoya DATE: July 12, 2022 TIME: 3:36 PM [facility] STAFF PHYSICIAN NOTE OF PERSONAL INVOLVEMENT IN CARE Patient is seen in consultation at the request of the above noted physician. Based on my evaluation she does not require intervention for dante. PLAN DISCUSSED WITH: pt See problem list I have reviewed the documentation obtained and documented by the Fellow and I have personally performed a face to face assessment of the patient and have personally participated in the hope components of the visit which includes medical decision making. and have reviewed and updated the problem list as appropriate. I have personally performed a face to face assessment of the patient and have personally participated in the hope components. I have discussed the case and management of the patient's care. STAFF PHYSICIAN: Diomedes Davey MD documented in this encounter [facility] 06-29-2022 Miscellaneous Notes The following approved medication requests have been transmitted electronically. Requested Prescriptions Pending Prescriptions Disp Refills gabapentin (NEURONTIN) 300 mg capsule 360 capsule 1 Sig: Take 2 capsules by mouth twice daily for 180 days. Rachell Garcia APRN.CNP Last Office Visit: 03/13/2022 Future Office Visit: 07/14/2022 Requested Prescriptions Pending Prescriptions Disp Refills gabapentin (NEURONTIN) 300 mg capsule 360 capsule 1 Sig: Take 2 capsules by mouth twice daily for 180 days. Date of Last Labs: 01/06/2022 documented in this encounter [facility] 06-08-2022 Note HNO ID: [id number] Author: Cayetano Funes RN Service: ? Author Type: Registered Nurse Type: Progress Notes Filed: 06/08/2022 3:38 PM Note Text: [facility] TELEPHONIC OUTREACH Provider Action/FYI: - ckd, htn, dm - per pt, she was with her emergency room tech yesterday and was told she is doing well - she denies needs or concerns at this time Contact made with patient: Yes Patient identified by name and . Discussed care with patient It?s nice talking to you again. As a reminder, this is our bi-weekly check-in where I will be asking you questions about your health. This will only take a few minutes of your time. Is this a good time? Yes Symptoms What Chronic Disease(s) does the patient have: CKD Do you check your blood pressures at home? No Do you have new or worse shortness of breath with activity? No Do you feel like you are dehydrated for any reason, including not being able to eat or drink normally, or having less urine/much darker urine than normal for you? No Do you check your daily weight at home? No Are you having any other symptoms that your PCP needs to know about? No Symptoms: none Symptom Escalation RUTHIE Education Ordered -: No The patient required an escalation for symptom(s)? No Medications Do you have any questions about taking your medication or which medications you should be on? No Do you need any medication refills at this time, including any of the medications you might take only when needed? No Social We would like to make sure you have what you need so that your basic needs are met- including your personal safety, food, housing, transportation and medications? Would you like to speak with a social work steam hoist operator to help give you support for any of these needs? No It can be normal to feel anxious or down during a time like this. Would you like to talk to a mental health professional about how you have been feeling? No Closing Thank you for taking the time to talk with me today. We want to work with you to ensure that we are keeping your medical condition(s) well-controlled and to keep you healthy and out of the doctor's office or hospital. It?s also not too late for me to sign you up for automated weekly questionnaires through [employer]. This is an easy way for us to stay connected each week. Are you interested? No, I understand. We can always sign you up in the future if you change your mind. Just as a reminder, will continue to call you every other week to check in on your health. Our calls should take 10-15 minutes or less. Remember, if you have concerns in between our calls, please call your PCP's office right away. Thank you. Enter next patient outreach date for two weeks on the same day of the week as today in the Track Pt Outreach and End outreach. [facility] 06-08-2022 Note Patient Outreach ([facility] [place] MATEO BEDOYA V ([id number]) 1945 F Date Time Provider Department 06/08/22 CAYETANO FUNES During your visit today, we recorded the following information about you: Cayetano Funes RN 06/08/2022 3:38 PM Signed [facility] TELEPHONIC OUTREACH Provider Action/FYI: - ckd, htn, dm - per pt, she was with her emergency room tech yesterday and was told she is doing well - she denies needs or concerns at this time Contact made with patient: Yes Patient identified by name and . Discussed care with patient It?s nice talking to you again. As a reminder, this is our bi-weekly check-in where I will be asking you questions about your health. This will only take a few minutes of your time. Is this a good time? Yes Symptoms What Chronic Disease(s) does the patient have: CKD Do you check your blood pressures at home? No Do you have new or worse shortness of breath with activity? No Do you feel like you are dehydrated for any reason, including not being able to eat or drink normally, or having less urine/much darker urine than normal for you? No Do you check your daily weight at home? No Are you having any other symptoms that your PCP needs to know about? No Symptoms: none Symptom Escalation RUTHIE Education Ordered -: No The patient required an escalation for symptom(s)? No Medications Do you have any questions about taking your medication or which medications you should be on? No Do you need any medication refills at this time, including any of the medications you might take only when needed? No Social We would like to make sure you have what you need so that your basic needs are met- including your personal safety, food, housing, transportation and medications? Would you like to speak with a social work steam hoist operator to help give you support for any of these needs? No It can be normal to feel anxious or down during a time like this. Would you like to talk to a mental health professional about how you have been feeling? No Closing Thank you for taking the time to talk with me today. We want to work with you to ensure that we are keeping your medical condition(s) well-controlled and to keep you healthy and out of the doctor's office or hospital. It?s also not too late for me to sign you up for automated weekly questionnaires through [employer]. This is an easy way for us to stay connected each week. Are you interested? No, I understand. We can always sign you up in the future if you change your mind. Just as a reminder, will continue to call you every other week to check in on your health. Our calls should take 10-15 minutes or less. Remember, if you have concerns in between our calls, please call your PCP's office right away. Thank you. Enter next patient outreach date for two weeks on the same day of the week as today in the Track Pt Outreach and End outreach. Allergies As of Date: 06/08/2022 Noted Allergy Reaction bee stings and insect bites [Othe*12/13/2005 7 - Swelling CODEINE 05/10/2004 8 - GI Upset MORPHINE 05/10/2004 14 - Other: See Comments Comments: Pt is unable to sleep PERCOCET (ACETAMINOPHEN) 05/10/2004 5 - Intolerance Comments: Increased and irregular heart rate PERCODAN (ASPIRIN) 05/10/2004 5 - Intolerance Comments: Increased and irregular heart rate Date Reviewed: 03/13/2022 Reviewed by: Lindsey Martinez Ma - Fully Assessed Reason for Visit: cdm [Other] Cmt: Telephonic outreach Prescriptions as of 06/08/2022 - hydroCHLOROthiazide (HYDRODIURIL, ESIDRIX) 12.5 mg capsule Take 1 capsule by mouth once daily. - SYNTHROID 137 mcg tablet Take 1 tablet by mouth once daily. Take on empty stomach. For thyroid. - atorvastatin (LIPITOR) 80 mg tablet Take 1 tablet by mouth once daily. - clopidogrel (PLAVIX) 75 mg tablet Take 1 tablet by mouth once daily. - oxybutynin ER (DITROPAN XL) 10 mg 24 hr tablet Take 1 tablet by mouth once daily. - gabapentin (NEURONTIN) 300 mg capsule Take 2 capsules by mouth twice daily for 180 days. - atenolol (TENORMIN) 100 mg tablet Take 1 tablet by mouth twice daily. - EPINEPHrine (EPIPEN) 0.3 mg/0.3 mL auto-injector Use as directed - nitroglycerin sublingual (NITROSTAT) 0.4 mg SL tablet Dissolve 1 tablet under the tongue as needed. DISSOLVE ON TONGUE FOR CHEST PAIN. IF NO PAIN RELIEF, CALL 911 - aspirin 325 mg tablet Take 1 tablet by mouth once daily. - ketoconazole (NIZORAL) 2 % cream Apply 1 application to affected area as needed. - losartan (COZAAR) 50 mg tablet Take 2 tablets by mouth once daily. - TUMS CALCIUM FOR LIFE BONE 750 MG ORAL CHEW Take (2) two per day. - MULTIVITAMIN TABLET Take one(1) tablet daily. Facility-Administered Medications as of 06/08/2022 - perflutren lipid microspheres 1.3 mL in NaCl (PF) 0.9% 10 mL injection (DEFINITY) - sodium chloride 0.9 % (flush) 10 mL (BD PO (more content not included)... [facility] 05-05-2022 Note Patient Outreach ([facility] [place] ELKEMATEO Yahaira ([id number]) 1945 F Date Time Provider Department 05/05/22 TAMEKA ARRIOLA During your visit today, we recorded the following information about you: Tameka Arriola, RN 05/05/2022 11:22 AM Signed INSIGHT CDM TELEPHONIC OUTREACH FYI: Made call to patient. Pt denies any new or worsening CDM symptoms. Pt states she is doing just fine. Pt denies any needs, questions, or concerns at this time. Contact made with patient: Yes Patient identified by name and . Discussed care with patient It?s nice talking to you again. As a reminder, this is our bi-weekly check-in where I will be asking you questions about your health. This will only take a few minutes of your time. Is this a good time? Yes Symptoms What Chronic Disease(s) does the patient have: CKD Do you check your blood pressures at home? No Do you have new or worse shortness of breath with activity? No Do you feel like you are dehydrated for any reason, including not being able to eat or drink normally, or having less urine/much darker urine than normal for you? No Do you check your daily weight at home? Yes, Have you noticed a sudden gain in weight greater than three pounds in a day or three pounds in a week? No Are you having any other symptoms that your PCP needs to know about? No Symptoms: Symptom Escalation RUTHIE Education Ordered -: No The patient required an escalation for symptom(s)? No Medications Do you have any questions about taking your medication or which medications you should be on? No Do you need any medication refills at this time, including any of the medications you might take only when needed? No Social We would like to make sure you have what you need so that your basic needs are met- including your personal safety, food, housing, transportation and medications? Would you like to speak with a social work steam hoist operator to help give you support for any of these needs? No It can be normal to feel anxious or down during a time like this. Would you like to talk to a mental health professional about how you have been feeling? No Closing Thank you for taking the time to talk with me today. We want to work with you to ensure that we are keeping your medical condition(s) well-controlled and to keep you healthy and out of the doctor's office or hospital. It?s also not too late for me to sign you up for automated weekly questionnaires through [employer]. This is an easy way for us to stay connected each week. Are you interested? No, I understand. We can always sign you up in the future if you change your mind. Just as a reminder, will continue to call you every other week to check in on your health. Our calls should take 10-15 minutes or less. Remember, if you have concerns in between our calls, please call your PCP's office right away. Thank you. Enter next patient outreach date for two weeks on the same day of the week as today in the Track Pt Outreach and End outreach. Allergies As of Date: 05/05/2022 Noted Allergy Reaction bee stings and insect bites [Othe*12/13/2005 7 - Swelling CODEINE 05/10/2004 8 - GI Upset MORPHINE 05/10/2004 14 - Other: See Comments Comments: Pt is unable to sleep PERCOCET (ACETAMINOPHEN) 05/10/2004 5 - Intolerance Comments: Increased and irregular heart rate PERCODAN (ASPIRIN) 05/10/2004 5 - Intolerance Comments: Increased and irregular heart rate Date Reviewed: 03/13/2022 Reviewed by: Lindsey Martinez Ma - Fully Assessed Reason for Visit: community monitoring outreach [Other] Cmt: CDM monthly check - in. Prescriptions as of 05/05/2022 - SYNTHROID 137 mcg tablet Take 1 tablet by mouth once daily. Take on empty stomach. For thyroid. - atorvastatin (LIPITOR) 80 mg tablet Take 1 tablet by mouth once daily. - clopidogrel (PLAVIX) 75 mg tablet Take 1 tablet by mouth once daily. - oxybutynin ER (DITROPAN XL) 10 mg 24 hr tablet Take 1 tablet by mouth once daily. - gabapentin (NEURONTIN) 300 mg capsule Take 2 capsules by mouth twice daily for 180 days. - atenolol (TENORMIN) 100 mg tablet Take 1 tablet by mouth twice daily. - EPINEPHrine (EPIPEN) 0.3 mg/0.3 mL auto-injector Use as directed - nitroglycerin sublingual (NITROSTAT) 0.4 mg SL tablet Dissolve 1 tablet under the tongue as needed. DISSOLVE ON TONGUE FOR CHEST PAIN. IF NO PAIN RELIEF, CALL 911 - aspirin 325 mg tablet Take 1 tablet by mouth once daily. - ketoconazole (NIZORAL) 2 % cream Apply 1 application to affected area as needed. - hydroCHLOROthiazide 12.5 mg capsule Take 12.5 mg by mouth once daily. - losartan (COZAAR) 50 mg tablet Take 2 tablets by mouth once daily. - TUMS CALCIUM FOR LIFE BONE 750 MG ORAL CHEW Take (2) two per day. - MULTIVITAMIN TABLET Take one(1) tablet daily. Facility-Administered Medications as of 05/05/2022 - perflutren l (more content not included)... [facility] 05-05-2022 Note HNO ID: [id number] Author: Tameka Arriola RN Service: ? Author Type: Registered Nurse Type: Progress Notes Filed: 05/05/2022 11:22 AM Note Text: INSIGHT CDM TELEPHONIC OUTREACH FYI: Made call to patient. Pt denies any new or worsening CDM symptoms. Pt states she is doing just fine. Pt denies any needs, questions, or concerns at this time. Contact made with patient: Yes Patient identified by name and . Discussed care with patient It?s nice talking to you again. As a reminder, this is our bi-weekly check-in where I will be asking you questions about your health. This will only take a few minutes of your time. Is this a good time? Yes Symptoms What Chronic Disease(s) does the patient have: CKD Do you check your blood pressures at home? No Do you have new or worse shortness of breath with activity? No Do you feel like you are dehydrated for any reason, including not being able to eat or drink normally, or having less urine/much darker urine than normal for you? No Do you check your daily weight at home? Yes, Have you noticed a sudden gain in weight greater than three pounds in a day or three pounds in a week? No Are you having any other symptoms that your PCP needs to know about? No Symptoms: Symptom Escalation RUTHIE Education Ordered -: No The patient required an escalation for symptom(s)? No Medications Do you have any questions about taking your medication or which medications you should be on? No Do you need any medication refills at this time, including any of the medications you might take only when needed? No Social We would like to make sure you have what you need so that your basic needs are met- including your personal safety, food, housing, transportation and medications? Would you like to speak with a social work steam hoist operator to help give you support for any of these needs? No It can be normal to feel anxious or down during a time like this. Would you like to talk to a mental health professional about how you have been feeling? No Closing Thank you for taking the time to talk with me today. We want to work with you to ensure that we are keeping your medical condition(s) well-controlled and to keep you healthy and out of the doctor's office or hospital. It?s also not too late for me to sign you up for automated weekly questionnaires through [employer]. This is an easy way for us to stay connected each week. Are you interested? No, I understand. We can always sign you up in the future if you change your mind. Just as a reminder, will continue to call you every other week to check in on your health. Our calls should take 10-15 minutes or less. Remember, if you have concerns in between our calls, please call your PCP's office right away. Thank you. Enter next patient outreach date for two weeks on the same day of the week as today in the Track Pt Outreach and End outreach. [facility] 05-05-2022 History of Present illness Narrative INSIGHT CDM TELEPHONIC OUTREACH FYI: Made call to patient. Pt denies any new or worsening CDM symptoms. Pt states she is doing just fine. Pt denies any needs, questions, or concerns at this time. Contact made with patient: Yes Patient identified by name and . Discussed care with patient It s nice talking to you again. As a reminder, this is our bi-weekly check-in where I will be asking you questions about your health. This will only take a few minutes of your time. Is this a good time? Yes Symptoms What Chronic Disease(s) does the patient have: CKD Do you check your blood pressures at home? No Do you have new or worse shortness of breath with activity? No Do you feel like you are dehydrated for any reason, including not being able to eat or drink normally, or having less urine/much darker urine than normal for you? No Do you check your daily weight at home? Yes, Have you noticed a sudden gain in weight greater than three pounds in a day or three pounds in a week? No Are you having any other symptoms that your PCP needs to know about? No Symptoms: Symptom Escalation RUTHIE Education Ordered -: No The patient required an escalation for symptom(s)? No Medications Do you have any questions about taking your medication or which medications you should be on? No Do you need any medication refills at this time, including any of the medications you might take only when needed? No Social We would like to make sure you have what you need so that your basic needs are met- including your personal safety, food, housing, transportation and medications? Would you like to speak with a social work steam hoist operator to help give you support for any of these needs? No It can be normal to feel anxious or down during a time like this. Would you like to talk to a mental health professional about how you have been feeling? No Closing Thank you for taking the time to talk with me today. We want to work with you to ensure that we are keeping your medical condition(s) well-controlled and to keep you healthy and out of the doctor's office or hospital. It s also not too late for me to sign you up for automated weekly questionnaires through [employer]. This is an easy way for us to stay connected each week. Are you interested? No, I understand. We can always sign you up in the future if you change your mind. Just as a reminder, will continue to call you every other week to check in on your health. Our calls should take 10-15 minutes or less. Remember, if you have concerns in between our calls, please call your PCP's office right away. Thank you. Enter next patient outreach date for two weeks on the same day of the week as today in the Track Pt Outreach and End outreach. documented in this encounter [facility] 04-04-2022 History of Present illness Narrative INSIGHT CDM TELEPHONIC OUTREACH Provider Action/FYI: Patient reports she is doing good, had hip xray completed, everything looks good, will be starting PT. Patient had no questions, concerns, needs at this time. Contact made with patient: Yes Patient identified by name and . Discussed care with patient It s nice talking to you again. As a reminder, this is our bi-weekly check-in where I will be asking you questions about your health. This will only take a few minutes of your time. Is this a good time? Yes Symptoms What Chronic Disease(s) does the patient have: CKD Do you check your blood pressures at home? No Do you have new or worse shortness of breath with activity? No Do you feel like you are dehydrated for any reason, including not being able to eat or drink normally, or having less urine/much darker urine than normal for you? No Do you check your daily weight at home? Yes, Have you noticed a sudden gain in weight greater than three pounds in a day or three pounds in a week? No Are you having any other symptoms that your PCP needs to know about? No Symptoms: no Symptom Escalation RUTHIE Education Ordered -: No The patient required an escalation for symptom(s)? No Medications Do you have any questions about taking your medication or which medications you should be on? No Do you need any medication refills at this time, including any of the medications you might take only when needed? No Social We would like to make sure you have what you need so that your basic needs are met- including your personal safety, food, housing and medications? Would you like to speak with a social work steam hoist operator to help give you support for any of these needs? No It can be normal to feel anxious or down during a time like this. Would you like to talk to a mental health professional about how you have been feeling? No Closing Thank you for taking the time to talk with me today. We want to work with you to ensure that we are keeping your medical condition(s) well-controlled and to keep you healthy and out of the doctor's office or hospital. It s also not too late for me to sign you up for automated weekly questionnaires through [employer]. This is an easy way for us to stay connected each week. Are you interested? No, I understand. We can always sign you up in the future if you change your mind. Just as a reminder, will continue to call you every other week to check in on your health. Our calls should take 10-15 minutes or less. Remember, if you have concerns in between our calls, please call your PCP's office right away. Thank you. Enter next patient outreach date for two weeks on the same day of the week as today in the Track Pt Outreach and End outreach. INSIGHT CDM TELEPHONIC OUTREACH Provider Action/FYI: Contact made with patient: Yes Patient identified by name and . Discussed care with patient It s nice talking to you again. As a reminder, this is our bi-weekly check-in where I will be asking you questions about your health. This will only take a few minutes of your time. Is this a good time? No - today is not a good time for the patient. Agree on a call back time and connect with the patient then. If applicable, update the next patient outreach date using the Track Pt Outreach. End outreach documented in this encounter [facility] 03-22-2022 Miscellaneous Notes Authorized from February 20, 2022 to March 22, 2023 PA was notified Natividad Ospina Ma PA completed electronically. Natividad Ospina Ma Pt states every year she must get an insurance authorization because she takes name brand synthroid. Pt states she can not take generic. Prior Authorization Documentation Prior authorization requested for the following medication: Medication: Synthroid 137mcg Provider: Dr Marianela Valle Insurance Company Name: [employer] In[employer] [facility] Medicaid Insurance [employer] Phone number: [phone] Patient ID number: [id number] Pharmacy Name: [facility] Telephone number: [phone] Moon Bennett LPN documented in this encounter [facility] 03-21-2022 Miscellaneous Notes OK to refill as ordered Alejandra Valle MD Patient has been identified by name and date of : Yes Requested Prescriptions Pending Prescriptions Disp Refills SYNTHROID 137 mcg tablet 90 tablet 3 Sig: Take 1 tablet by mouth once daily. Take on empty stomach. For thyroid. RX INSTRUCTIONS: Patient can only take name brand Synthroid Patient aware RX will be sent to pharmacy. No need to notify patient. Corie Watson documented in this encounter [facility] 03-13-2022 Miscellaneous Notes The following approved medication requests have been transmitted electronically. Requested Prescriptions Pending Prescriptions Disp Refills atorvastatin (LIPITOR) 80 mg tablet 30 tablet 11 Sig: Take 1 tablet by mouth once daily. clopidogrel (PLAVIX) 75 mg tablet 30 tablet 11 Sig: Take 1 tablet by mouth once daily. Umesh Liz APRN.MARTIN Patient has been identified by name and date of : Yes Last office visit in this department: 01/12/2022 RX INSTRUCTIONS: Patient aware RX will be sent to pharmacy. No need to notify patient. Patient phones requesting refills as follows: Requested Prescriptions Pending Prescriptions Disp Refills atorvastatin (LIPITOR) 80 mg tablet Sig: Take 1 tablet by mouth once daily. clopidogrel (PLAVIX) 75 mg tablet 30 tablet 11 Sig: Take 1 tablet by mouth once daily. Please review and advise. Dang Huitron Pss documented in this encounter [facility] 02-07-2022 History of Present illness Narrative INSIGHT CDM TELEPHONIC OUTREACH Provider Action/FYI: Patient reports she is doing good, had no questions, concerns, needs at this time. Contact made with patient: Yes Patient identified by name and . Discussed care with patient It s nice talking to you again. As a reminder, this is our bi-weekly check-in where I will be asking you questions about your health. This will only take a few minutes of your time. Is this a good time? Yes Symptoms What Chronic Disease(s) does the patient have: CKD Do you check your blood pressures at home? No Do you have new or worse shortness of breath with activity? No Do you feel like you are dehydrated for any reason, including not being able to eat or drink normally, or having less urine/much darker urine than normal for you? No Do you check your daily weight at home? Yes, Have you noticed a sudden gain in weight greater than three pounds in a day or three pounds in a week? No Are you having any other symptoms that your PCP needs to know about? No Symptom Escalation The patient required an escalation for symptom(s)? No Medications Do you have any questions about taking your medication or which medications you should be on? No Do you need any medication refills at this time, including any of the medications you might take only when needed? No Social We would like to make sure you have what you need so that your basic needs are met- including your personal safety, food, housing and medications? Would you like to speak with a social work steam hoist operator to help give you support for any of these needs? No It can be normal to feel anxious or down during a time like this. Would you like to talk to a mental health professional about how you have been feeling? No Closing Thank you for taking the time to talk with me today. We want to work with you to ensure that we are keeping your medical condition(s) well-controlled and to keep you healthy and out of the doctor's office or hospital. It s also not too late for me to sign you up for automated weekly questionnaires through [employer]. This is an easy way for us to stay connected each week. Are you interested? No, I understand. We can always sign you up in the future if you change your mind. Just as a reminder, will continue to call you every other week to check in on your health. Our calls should take 10-15 minutes or less. Remember, if you have concerns in between our calls, please call your PCP's office right away. Thank you. Enter next patient outreach date for two weeks on the same day of the week as today in the Track Pt Outreach and End outreach. documented in this encounter [facility] 01-19-2022 History of Present illness Narrative Images from the original note were not included. [facility] DEPARTMENT OF VASCULAR SURGERY OUTPATIENT VISIT DATE January 19, 2022 OUTPATIENT VISIT TYPE ESTABLISHED SERVICE DATE: 01/19/2022 SERVICE TIME: 10:14 AM PRIMARY CARE PHYSICIAN: Alejandra Valle MD HISTORY OF PRESENT ILLNESS: Ms. Bedoya is a 76 year old female who presents today for a vascular surgery follow-up visit of her carotid stent. NO stroke tia or amaurosis. PAST MEDICAL HISTORY Diagnosis Date artery spasm causes CP, she has nitro Benign neoplasm of brain (HCC) 2004 meningioma Carotid stenosis, asymptomatic, bilateral 10/02/2019 Dysthymic disorder Essential hypertension, benign Herpes zoster 10/26 Impaired fasting glucose 03/31 Obesity, unspecified Other and unspecified hyperlipidemia Pessary maintenance Urinary incontinence PAST SURGICAL HISTORY Procedure Laterality Date EXTRACTION, ERUPTED TOOTH OR EXPOSED ROOT (ELEVATION AND/OR FORCEPS REMOVAL) Walker teeth LAPAROSCOPY SURG CHOLECYSTECTOMY 90s Cholecystectomy, lap OOPHORECTOMY PARTIAL/TOTAL UNI/BI 80s Oophorectomy PAST SURGICAL HISTORY OF 80s 10 surgeries 14 abd tumors, all benign PAST SURGICAL HISTORY OF 12/16/2015 Dr. Reinoso, skin lesion removed PAST SURGICAL HISTORY OF Right 07/04/2016 right breast needle biopsy, benign - Dr. Reinoso PAST SURGICAL HISTORY OF N/A 05/23/2018 4 stents placed by [facility] PAST SURGICAL HISTORY OF N/A 08/14/2018 5th stent placed by [facility] PAST SURGICAL HISTORY OF Right right upper tooth implant THYROIDECTOMY TOTAL/COMPLETE 2003 large nodule. Complete TOTAL ABDOMINAL HYSTERECT W/WO RMVL TUBE OVARY 80s Hysterectomy, BING TOTAL HIP JOINT REPLACEMENT Right 01/15/2020 [facility] SOCIAL HISTORY Social History Tobacco Use Smoking status: Never Smokeless tobacco: Never Vaping Use Vaping Use: Never used Substance Use Topics Alcohol use: Yes Comment: very rarely/ twice per year Drug use: No MEDICATIONS: SYNTHROID 137 mcg tablet^Take 1 tablet by mouth once daily. Take on empty stomach. For thyroid.^Disp: 90 tablet^Rfl: 3 oxybutynin ER (DITROPAN XL) 10 mg 24 hr tablet^Take 1 tablet by mouth once daily.^Disp: 90 tablet^Rfl: 3 gabapentin (NEURONTIN) 300 mg capsule^Take 2 capsules by mouth twice daily for 180 days.^Disp: 360 capsule^Rfl: 1 atenolol (TENORMIN) 100 mg tablet^Take 1 tablet by mouth twice daily.^Disp: 180 tablet^Rfl: 3 EPINEPHrine (EPIPEN) 0.3 mg/0.3 mL auto-injector^Use as directed^Disp: 1 Each^Rfl: 1 nitroglycerin sublingual (NITROSTAT) 0.4 mg SL tablet^Dissolve 1 tablet under the tongue as needed. DISSOLVE ON TONGUE FOR CHEST PAIN. IF NO PAIN RELIEF, CALL 911^Disp: 1 Bottle of 25^Rfl: 2 aspirin 325 mg tablet^Take 1 tablet by mouth once daily.^Disp: 30 tablet^Rfl: 0 ketoconazole (NIZORAL) 2 % cream^Apply 1 application to affected area as needed.^Disp: 60 g^Rfl: 5 hydroCHLOROthiazide 12.5 mg capsule^Take 12.5 mg by mouth once daily.^Disp: ^Rfl: losartan (COZAAR) 50 mg tablet^Take 2 tablets by mouth once daily.^Disp: ^Rfl: atorvastatin (LIPITOR) 80 mg tablet^Take 1 tablet by mouth once daily.^Disp: ^Rfl: clopidogrel (PLAVIX) 75 mg tablet^Take 1 tablet by mouth once daily.^Disp: 30 tablet^Rfl: 11 TUMS CALCIUM FOR LIFE BONE 750 MG ORAL CHEW^Take (2) two per day.^Disp: ^Rfl: 0 MULTIVITAMIN TABLET^Take one(1) tablet daily.^Disp: ^Rfl: 0 ALLERGIES: ALLERGIES Allergen Reactions Bee Stings And Inse* Swelling Codeine GI Upset Morphine Other: See Comments Pt is unable to sleep Percocet [Acetamino* Intolerance Increased and irregular heart rate Percodan [Aspirin] Intolerance Increased and irregular heart rate PHYSICAL EXAM: BP 124/58 Pulse 66 LMP (LMP Unknown) NAD RRR Diagnostic tests reviewed for today's visit: Most recent imaging Widely patent stent IMPRESSION: Ms. Bedoya is a 76 year old female has asymptomatic .carotid disease PLAN and RECOMMENDATIONS: F/u with US carotid Medical Decision Making: Medical Decision Making Level: 1 - N/A SIGNATURE: Diomedes Davey MD PATIENT NAME: Mateo Bedoya DATE: January 19, 2022 TIME: 10:14 AM documented in this encounter [facility] 01-18-2022 History of Present illness Narrative Summary: Follow up Visit [facility] IRB # [id number] Study Name: Mesfin Knott PI: Claudia Wilson Study Visit: Follow- up Visit I met with the patient for the 180 day follow up for the [facility]Reena Study. Reaffirmed that the patient still wishes to participate in the study and continues to consent to the study. Has the patient had any changes in patient s health since the last study visit? NO Medications and allergy lists updated and current. Has the patient had any outside hospitalizations/ER visits: No NIHSS completed per protocol: Yes NIHSS 1a. Mental Status - LOC: 0 =Alert; keenly responsive 1b. LOC Questions: 0 =Answers both questions correctly. 1c, LOC Commands: 0 =Performs both tasks correctly. 2. Gaze: 0 =Normal 3. Visual: 0 =No visual loss 4. Facial Palsy: 0 =Normal symmetrical movements 5a Motor Left Arm: 0 =No drift; limb holds 90 (or 45)degrees for full 10 seconds 5b. Motor Right Arm: 0 =No drift; limb holds 90 (or 45)degrees for full 10 seconds 6a. Motor Left Le =No drift; leg holds 30-degree position for full 5 seconds. 6b. Motor Right Le =No drift; leg holds 30-degree position for full 5 seconds. 7. Limb Ataxia: 0 =Absent 8. Sensory: 0 =No sensory loss 9. Best Language: 0 =No aphasia; normal 10. Dysarthria: 0 =Normal 11. Extinction and Inattention: 0 =No abnormality Distal Motor Function assesment completed per protocol: Yes: Distal Motor Left arm: 0 = Normal, No Flexion 5 seconds Right arm: 0 = Normal, No Flexion 5 seconds Gait assessment completed per protocol: Yes: Normal Modified Lynn completed per protocol: Yes: 0 = No symptoms Discussed with the patient the importance of follow up in the study. Patient verbalized understanding. Next study visit will be in 180 days in clinic for her 1 yr followup. Patient contact information reaffirmed and updated. Coordinator contact information provided to the patient. Education provided: Follow up requirements/schedule Materials dispensed: Coordinator Contact Card Learning Support Services Director: Jen Mary RN Pager #: [phone] documented in this encounter [facility] 01-06-2022 History of Present illness Narrative POPULATION HEALTH NAVIGATION OUTREACH Action/FYI Patient due for JESSICA Patient states she sees outside provider. Saw Dr. Moon at [facility] on 08/26/2021. States she does not have records sent to PCP. I advised her to have records sent, patient declined. Pt identified by name and : YES, via phone Outreach Outcome/Action Spoke to patient or caregiver: No action required (information or reminder only) Did you use a PCP flex slot to schedule this appointment? No Reason for Outreach Care Gap or Scheduling/Wellness visits Payer: Payor: AET MEDICARE / Plan: AET MEDICARE PPO / Product Type: PPO / Care Gap Reviewed:: Diabetic Eye Exam Reminder: Reminder note to check Health Maintenance for items below Health Maintenance items due: DIABETIC FOOT EXAM Never done DEPRESSION ASSESSMENT Never done DILATED RETINAL EXAM due on 08/03/2021 HBA1C due on 01/06/2022 Message Sent to Practice: No Navigation Signature: Rebecca Gilmore Pss January 06, 2022 3:16 PM documented in this encounter [facility] 12-14-2021 History of Present illness Narrative INSIGHT CDM TELEPHONIC OUTREACH Provider Action/FYI: Patient reports she is doing good, had no questions, concerns, needs at this time. Contact made with patient: Yes Patient identified by name and . Discussed care with patient It s nice talking to you again. As a reminder, this is our bi-weekly check-in where I will be asking you questions about your health. This will only take a few minutes of your time. Is this a good time? Yes Symptoms What Chronic Disease(s) does the patient have: CKD Do you check your blood pressures at home? No Do you have new or worse shortness of breath with activity? No Do you feel like you are dehydrated for any reason, including not being able to eat or drink normally, or having less urine/much darker urine than normal for you? No Do you check your daily weight at home? No Are you having any other symptoms that your PCP needs to know about? No Symptom Escalation The patient required an escalation for symptom(s)? No Medications Do you have any questions about taking your medication or which medications you should be on? No Do you need any medication refills at this time, including any of the medications you might take only when needed? No Social We would like to make sure you have what you need so that your basic needs are met- including your personal safety, food, housing and medications? Would you like to speak with a social work steam hoist operator to help give you support for any of these needs? No It can be normal to feel anxious or down during a time like this. Would you like to talk to a mental health professional about how you have been feeling? No Closing Thank you for taking the time to talk with me today. We want to work with you to ensure that we are keeping your medical condition(s) well-controlled and to keep you healthy and out of the doctor's office or hospital. It s also not too late for me to sign you up for automated weekly questionnaires through [employer]. This is an easy way for us to stay connected each week. Are you interested? No, I understand. We can always sign you up in the future if you change your mind. Just as a reminder, will continue to call you every other week to check in on your health. Our calls should take 10-15 minutes or less. Remember, if you have concerns in between our calls, please call your PCP's office right away. Thank you. Enter next patient outreach date for two weeks on the same day of the week as today in the Track Pt Outreach and End outreach. documented in this encounter [facility] 12-13-2021 Miscellaneous Notes Left message on patient's cell number (preferred number) regarding 12/28/21 appointments rescheduling for 01/18/22. Provided [phone] as call back number. Vicky Palma Research Coordinator- Cardiothoracic and Vascular Surgery documented in this encounter [facility] 12-13-2021 History of Present illness Narrative INSIGHT CDM TELEPHONIC OUTREACH Provider Action/FYI: Contact made with patient: No - Left message Marcos my name is Radha Carrizales RN your Hand Blocker from the [facility] I am calling today for your bi-weekly check in. I am sorry I missed your call. I will reach out to you again tomorrow. (if the third call I will reach out to you again next week) Enter next patient outreach date for the following business day using the Track Pt Outreach. End outreach. documented in this encounter [facility] 11-25-2021 Instructions Pauly Bowman APRN.MARTIN - 11/25/2021 11:39 AM EDT Tylenol prn * Prednisone 40 mg (2 tablets) per day for 5 days, take in morning or early in day * Do not NSAIDs during this 5 day course (ibuprofen, naproxen, Motrin, Aleve, Advil) Tylenol only during prednisone use * Follow up with primary care provider if no improvement with treatment Flexeril as ordered, do not drive or operate heavy machinery Report immediately to ER for foot drop, bowel or bladder loss, numbness or tingling of legs/feet or any new or worsening concerns if unable to get into PMD documented in this encounter [facility] 11-25-2021 History of Present illness Narrative Images from the original note were not included. Subjective The history is provided by the patient. No travel counselor automobile club was used. BARB Bedoya is a 76 year old female who presents today for CC of lower back pain, that started on Sunday after doing strenuous cleaning. She denies any numbness or tingling, no foot drop no difficulty with bowel or bladder function. BP 128/76 Pulse 69 Temp 36.4 C (97.6 F) Resp 18 Wt 97.1 kg (214 lb) LMP (LMP Unknown) SpO2 97% BMI 33.52 kg/m Social History Tobacco Use Smoking status: Never Smokeless tobacco: Never Vaping Use Vaping Use: Never used Substance Use Topics Alcohol use: Yes Comment: very rarely/ twice per year Drug use: No PAST MEDICAL HISTORY Diagnosis Date artery spasm causes CP, she has nitro Benign neoplasm of brain (HCC) 2004 meningioma Carotid stenosis, asymptomatic, bilateral 10/02/2019 Dysthymic disorder Essential hypertension, benign Herpes zoster 10/26 Impaired fasting glucose 03/31 Obesity, unspecified Other and unspecified hyperlipidemia Pessary maintenance Urinary incontinence I have confirmed and edited as necessary, the [facility] Review of Systems Constitutional: Negative for chills and fever. Musculoskeletal: Positive for back pain. Negative for joint pain and myalgias. Skin: Negative for itching and rash. All other systems reviewed and are negative. Objective Physical Exam Vitals and nursing note reviewed. Cardiovascular: Pulses: Dorsalis pedis pulses are 2+ on the right side and 2+ on the left side. Posterior tibial pulses are 2+ on the right side and 2+ on the left side. Pulmonary: Effort: Pulmonary effort is normal. Musculoskeletal: Cervical back: Normal. Thoracic back: Normal. Lumbar back: Spasms and tenderness present. No bony tenderness. Decreased range of motion. Negative right straight leg raise test. Back: Skin: General: Skin is warm and dry. Neurological: Mental Status: She is alert and oriented to person, place, and time. Sensory: Sensation is intact. Deep Tendon Reflexes: Reflexes are normal and symmetric. Psychiatric: Mood and Affect: Affect normal. ASSESSMENT/PLAN: 1. Acute bilateral low back pain without sciatica - ICD9: 724.2, 338.19, ICD10: M54.50 Appears to be muscle strain Prednisone as ordered/tylenol Flexeril Stretches Follow up with PCP as needed Red flags given see patient instructions Diagnosis and treatment plan were discussed and questions were answered to the patient's satisfaction. Pt acknowledged understanding of concepts and follow up plan. Specific signs and symptoms that would indicate the need for higher level of care were discussed in detail warranting prompt ER evaluation. Pauly Bowman APRN.CNP documented in this encounter [facility] 11-15-2021 History of Present illness Narrative INSIGHT [facility] TELEPHONIC OUTREACH Provider Action/FYI: Pt reports she is doing good, no questions, concerns, needs at this time. Contact made with patient: Yes Patient identified by name and . Discussed care with patient It s nice talking to you again. As a reminder, this is our bi-weekly check-in where I will be asking you questions about your health. This will only take a few minutes of your time. Is this a good time? Yes Symptoms What Chronic Disease(s) does the patient have: CKD Do you check your blood pressures at home? No Do you have new or worse shortness of breath with activity? No Do you feel like you are dehydrated for any reason, including not being able to eat or drink normally, or having less urine/much darker urine than normal for you? No Do you check your daily weight at home? No Are you having any other symptoms that your PCP needs to know about? No Symptom Escalation The patient required an escalation for symptom(s)? No Medications Do you have any questions about taking your medication or which medications you should be on? No Do you need any medication refills at this time, including any of the medications you might take only when needed? No Social We would like to make sure you have what you need so that your basic needs are met- including your personal safety, food, housing and medications? Would you like to speak with a social work steam hoist operator to help give you support for any of these needs? No It can be normal to feel anxious or down during a time like this. Would you like to talk to a mental health professional about how you have been feeling? No Closing Thank you for taking the time to talk with me today. We want to work with you to ensure that we are keeping your medical condition(s) well-controlled and to keep you healthy and out of the doctor's office or hospital. It s also not too late for me to sign you up for automated weekly questionnaires through [employer]. This is an easy way for us to stay connected each week. Are you interested? No, I understand. We can always sign you up in the future if you change your mind. Just as a reminder, will continue to call you every other week to check in on your health. Our calls should take 10-15 minutes or less. Remember, if you have concerns in between our calls, please call your PCP's office right away. Thank you. Enter next patient outreach date for two weeks on the same day of the week as today in the Track Pt Outreach and End outreach. documented in this encounter [facility] 10-18-2021 History of Present illness Narrative [facility] CDM Enrollment Provider Action/FYI: Patient referred by: [facility] [place] Priti Contact made with patient: Yes - Patient identified by name and . Discussed care with patient Marcos this is Radha Carrizales RN and I am calling from Alejandra Valle MD office at the [facility]. I am a RN Hand Blocker with our [facility] Chronic Disease Management program. Alejandra Valle MD wanted me to reach out to help you manage your health at home. Our goal is to keep you well at home. We want to help you manage your chronic disease by providing a safety net of resources around you, getting you the care you need in a timely manner, and hopefully keep you out of the ED and hospital. I will send you a few questions once a week through your [employer] account. It will automatically show up for you to complete. There are simple questions that will help us identify if you have any concerns or symptoms and I will call you to help get what you need. We will be able to connect you, review your symptoms, do an on demand visit, or communicate with Alejandra Valle MD if needed. I am going to sign you up for the program now. Enrollment Questions: Let's get you enrolled in the program. Yes, Do you have regular access to a computer/smartphone? No, Are you offering patient a biweekly phone call? yes/no: Yes. Goal Setting: I would like to take some time today to discuss your personal health goals. Yes, patient has goals. Capture the goal the patient wants to accomplish: Lose weight. Does the goal align with programs offered at the [facility]? Yes Chronic Disease Management patient goals yes: Weight loss Most people know what to do to become healthier, yet struggle to put it into action on their own.It can be hard to maintain a healthy lifestyle, especially when life is so stressful. Can we connect you with a [facility] to find a program that could help you meet your goals? No Closing: Patient accepts telephonic outreach Thank you for your time today. I am excited to work together in managing your health! I will check back within in two weeks to see how things are going. If questions or concerns arise between phone calls, please reach out to your PCP s office. (Place in active status for [facility] and place name in care team and update next patient outreach data to next business day two weeks from today s date) documented in this encounter [facility] 10-11-2021 History of Present illness Narrative PRIMARY CARE COORDINATION QUICK NOTE Provider Action/FYI Enrollment intro sent to patient via my chart. Will follow up with a phone call within the next few days. Patient identified by name and date . Radha Carrizales RN Secondary Teacher documented in this encounter [facility] 08-18-2021 History of Present illness Narrative Images from the original note were not included. Heart , V[facility] DEPARTMENT OF VASCULAR SURGERY OUTPATIENT VISIT DATE August 18, 2021 OUTPATIENT VISIT TYPE ESTABLISHED SERVICE DATE: 08/18/2021 SERVICE TIME: 9:58 AM PRIMARY CARE PHYSICIAN: Alejandra Valle MD HISTORY OF PRESENT ILLNESS: Ms. 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 Doing well. No stroke like symptoms postoperatively. Resuming normal activity. Groin soft. PAST MEDICAL HISTORY Diagnosis Date artery spasm causes CP, she has nitro Benign neoplasm of brain (HCC) 2004 meningioma Carotid stenosis, asymptomatic, bilateral 10/02/2019 Dysthymic disorder Essential hypertension, benign Herpes zoster 10/26 Impaired fasting glucose 03/31 Obesity, unspecified Other and unspecified hyperlipidemia Pessary maintenance Urinary incontinence PAST SURGICAL HISTORY Procedure Laterality Date EXTRACTION, ERUPTED TOOTH OR EXPOSED ROOT (ELEVATION AND/OR FORCEPS REMOVAL) Walker teeth LAPAROSCOPY SURG CHOLECYSTECTOMY 90s Cholecystectomy, lap OOPHORECTOMY PARTIAL/TOTAL UNI/BI 80s Oophorectomy PAST SURGICAL HISTORY OF 80s 10 surgeries 14 abd tumors, all benign PAST SURGICAL HISTORY OF 12/16/2015 Dr. Reinoso, skin lesion removed PAST SURGICAL HISTORY OF Right 07/04/2016 right breast needle biopsy, benign - Dr. Reinoso PAST SURGICAL HISTORY OF N/A 05/23/2018 4 stents placed by [facility] PAST SURGICAL HISTORY OF N/A 08/14/2018 5th stent placed by [facility] PAST SURGICAL HISTORY OF Right right upper tooth implant THYROIDECTOMY TOTAL/COMPLETE 2003 large nodule. Complete TOTAL ABDOMINAL HYSTERECT W/WO RMVL TUBE OVARY 80s Hysterectomy, BING TOTAL HIP JOINT REPLACEMENT Right 01/15/2020 [facility] SOCIAL HISTORY Social History Tobacco Use Smoking status: Never Smoker Smokeless tobacco: Never Used Vaping Use Vaping Use: Never used Substance Use Topics Alcohol use: Yes Comment: very rarely/ twice per year Drug use: No MEDICATIONS: SYNTHROID 137 mcg tablet Take 1 tablet by mouth once daily. Take on empty stomach. For thyroid. oxybutynin ER (DITROPAN XL) 10 mg 24 hr tablet TAKE 1 TABLET BY MOUTH EVERY DAY EPINEPHrine (EPIPEN) 0.3 mg/0.3 mL auto-injector Use as directed nitroglycerin sublingual (NITROSTAT) 0.4 mg SL tablet Dissolve 1 tablet under the tongue as needed. DISSOLVE ON TONGUE FOR CHEST PAIN. IF NO PAIN RELIEF, CALL 911 aspirin 325 mg tablet Take 1 tablet by mouth once daily. ketoconazole (NIZORAL) 2 % cream Apply 1 application to affected area as needed. gabapentin (NEURONTIN) 300 mg capsule TAKE 1-2 CAPSULES BY MOUTH THREE TIMES DAILY FOR 90 DAYS. hydroCHLOROthiazide 12.5 mg capsule Take 12.5 mg by mouth once daily. atenolol (TENORMIN) 100 mg tablet Take 1 tablet by mouth twice daily. losartan (COZAAR) 50 mg tablet Take 2 tablets by mouth once daily. atorvastatin (LIPITOR) 80 mg tablet Take 1 tablet by mouth once daily. clopidogrel (PLAVIX) 75 mg tablet Take 1 tablet by mouth once daily. TUMS CALCIUM FOR LIFE BONE 750 MG ORAL CHEW Take (2) two per day. MULTIVITAMIN TABLET Take one(1) tablet daily. ALLERGIES: ALLERGIES Allergen Reactions Bee Stings And Inse* Swelling Codeine GI Upset Morphine Other: See Comments Pt is unable to sleep Percocet [Acetamino* Intolerance Increased and irregular heart rate Percodan [Aspirin] Intolerance Increased and irregular heart rate PHYSICAL EXAM: BP 137/61 Pulse 68 Temp 37.4 C (99.3 F) (Oral) LMP (LMP Unknown) General: Alert and oriented Integumentary: Normal color, no rash, no lesions. HEENT: EOM, pupils equal, round and reactive. Well healed L CEA incision, no bruit Cardiovascular: Normal S1 & S2, no rubs, murmurs or gallops. No JVD., Pulse regular. Lungs: Normal breath sounds, no wheezes or crackles. Abdomen: Soft, non-tender, no rigidity. Extremities: No deformity, no edema or tenderness, no joint swelling or clubbing. Neurological: Normal cognition and motor skills. Gait normal. No weakness or sensory deficit. Vascular: Palp femorals, palp DPs Diagnostic tests reviewed for today's visit: Compared to prior study of 06/15/2021, decrease in right internal carotid artery velocities and degree of stenosis, left carotid stent placed since prior exam and is widely patent. RIGHT SIDE Internal carotid artery: 40-59% stenosis. Tortuous vessel from mid to distal . Minimal plaque at origin with elevated velocities appreciated mid vessel. Degree of stenosis appears overestimated due to tortuosity. Vertebral artery: Patent and antegrade flow noted. LEFT SIDE Common carotid artery: Stent noted at distal . Internal carotid artery stent: Patent, no hemodynamically significant restenosis. Stent noted from origin to proximal . Vertebral artery: Patent and antegrade flow noted. IMPRESSION: Ms. Bedoya is a 76 year old female s/p L ICA stent for recurrent stenosis, CGaurdians trial. Doing well. Stent widely patent. PLAN and RECOMMENDATIONS: Antiplt and follow up regimen per CGaurdians protocol Medical Decision Making: Medical Decision Making Level: 1 - N/A Bert Phillips MD August 18, 2021 10:01 AM SIGNATURE: Diomedes Davey MD PATIENT NAME: Mateo Bedoya DATE: August 18, 2021 TIME: 9:58 AM [facility] STAFF PHYSICIAN NOTE OF PERSONAL INVOLVEMENT IN CARE Patient is seen in consultation at the request of the above noted physician. Based on my evaluation she does not require intervention for dante. PLAN DISCUSSED WITH: pt See problem list I have reviewed the documentation obtained and documented by the Resident. I have personally performed a face to face assessment of the patient and have personally participated on the hope components of the history, exam and medical decision making and have reviewed and updated the problem list as appropriate. I have personally performed a face to face assessment of the patient and have personally participated in the hope components. I have discussed the case and management of the patient's care. STAFF PHYSICIAN: Diomedes Davey MD DATE of SERVICE: 08/18/2021 TIME of SERVICE: 2:07 PM documented in this encounter [facility] 08-16-2021 Miscellaneous Notes August 16, 2021 PID: [id number] Mateo Bedoya [address] [place] [address] Dear Ms. Bedoya, We are pleased to inform you that the results of your recent breast imaging exam on 08/16/2021 are normal. Early detection of cancer is very important. We also understand recommendations regarding breast cancer screening are controversial. Please discuss with your primary care provider which strategy is best for you and whether a mammogram is right for you. Your imaging studies and report will be kept on file at [facility] as part of your permanent medical record and are available for your continuing care. Thank you for allowing us to help in meeting your health care needs. Sincerely, Dr. Amaya Interpreting Radiologist [facility] (Normal over 40) documented in this encounter [facility] 08-02-2021 History of Present illness Narrative POPULATION HEALTH NAVIGATION OUTREACH Action/FYI left message to call me back to discuss stool cards my chart message sent follow up 01/12/22 mammogram scheduled 08/16/21 AD on file Pt identified by name and : NO Outreach Outcome/Action Unable to reach patient: Left message MyChart message sent Reason for Outreach Care Gap or Scheduling/Wellness visits Payer: Payor: A[employer] MEDICARE / Plan: A[employer] MEDICARE PPO / Product Type: PPO / Care Gap Reviewed:: Breast Cancer screening Colorectal Cancer Screening Reminder: Reminder note to check Health Maintenance for items below Health Maintenance items due: DIABETIC FOOT EXAM Never done COLORECTAL CANCER SCREENING due on 01/18/2020 COVID-19 VACCINE(4 - Booster for Moderna series) due on 06/15/2021 MAMMOGRAM due on 08/02/2021 DILATED RETINAL EXAM due on 08/03/2021 Message Sent to Practice: No Navigation Signature: Tameka Hunter MA August 02, 2021 11:33 AM documented in this encounter [facility] 07-25-2021 History of Present illness Narrative Images from the original note were not included. Transitional Care Management TCM Eligibility Documentation The following information was gathered during the initial Patient Outreach Encounter. Date of Outreach: 07/21/2021 Outreach Attempt 1: Contact Made Date of Discharge 07/20/2021 Some recent data might be hidden Provider Documentation Mateo Bedoya is a 76 year old female here today for a follow up from recent hospitalization. I have reviewed the patient's hospital course including discharge summary, discharge medications and follow up needs with the patient and any family members present at today's visit. HPI 7 Day TCM She is feeling good, surgery went well. Her arms are sore from bruising from IV. Her energy level is improving, still has times when she crashes and has to sleep or rest. She states she does not sleep much during the day, if she does she is either sick or recovering. Denies any chest pains, dizziness, or SOB other than recent episode on July 22, 11:00 AM she had episode of chest pains, took Nitro, pain resolved very quickly. Denies any bowel, Gi, or urinary issues. She is scheduled to follow up with Vascular on 08/18/21. Will be having regular follows ups for the next 3 years due to being in a clinic trial. Hand: left palm; thickening of tendon. Is able to use her hands well, can knit with no problems. Denies any pain. PHYSICAL EXAMINATION BP 126/72 Pulse 74 Resp 16 Wt 95.7 kg (211 lb) LMP (LMP Unknown) BMI 33.05 kg/m GENERAL: well appearing, alert, in no acute distress HEART: Regular rate and rhythm. No murmur, rubs or gallops. LUNGS: clear to auscultation, no wheezing, rhonchi, or crackles Hand: left; tendon thickening to the palm of hand, no pain. ASSESSMENT/PLAN: 1. Hospital discharge follow-up - ICD9: V67.59, ICD10: Z09 Improved Continue with current medications, continue to follow with the clinic trial providers, Vascular 2. Thickening of tendon - ICD9: 727.89, ICD10: M67.80 Continue to monitor as she is fully functional Follow up as scheduled. Alejandra Valle MD The documentation for this note was completed by Radha Stein Ma acting as scribe for Alejandra Valle MD. July 25, 2021 9:57 AM. Radha Stein Ma documented in this encounter [facility] 07-21-2021 History of Present illness Narrative POPULATION HEALTH NAVIGATION OUTREACH Action/ 1st attempt- Spoke to patient and scheduled hospital follow up with pcp on 07-25-21. Pt identified by name and : YES, via phone Outreach Outcome/Action Spoke to patient or caregiver: Patient scheduled Reason for Outreach Community Monitoring Pool Payer: Payor: [employer] MEDICARE / Plan: [employer] MEDICARE PPO / Product Type: PPO / Care Gap Reviewed:: Follow-up appointment Reminder: Reminder note to check Health Maintenance for items below Health Maintenance items due: DIABETIC FOOT EXAM Never done COLORECTAL CANCER SCREENING due on 01/18/2020 MAMMOGRAM due on 08/02/2021 DILATED RETINAL EXAM due on 08/03/2021 Message Sent to Practice: No Navigation Signature: Manasa Nunez Population Health Navigator July 21, 2021 2:05 PM TCM Home Visit Referral Source of Stratification: [facility] Admission Status: Discharged Readmission Risk Score: 9 LIDIA Score: 2 Program referral criteria met: Does not meet referral criteria Patient does not qualify for High Risk TCM Home Visit program due to: Does not meet referral criteria Patient does not quality for High Risk TCM Home Visit Program due to: Does not meet referral criteria Preferred contact number: [phone] Is patient staying somewhere other than the listed home address: No Dialysis Patient: No TRANSITIONAL CARE MANAGEMENT (TCM) COMMUNITY MONITORING PROGRAM Provider Action/FYI: Spoke to pt, she is doing great, up moving, eating, barley has pain, finally had a solid night sleep, just some soreness and bruising, but site looks dry and intact, pt has Vascular f/u with Dr. Davey on 08/18. No questions about post-op discharge papers or meds. Pt needs f/u apt with PCP, Dr. Valle within a wk will forward to copy chaser SUMMARY: Pt discharged from [facility] on 07/20. Admitted for: S/P Left carotid artery stent Contact made with patient: Yes Hi my name is Bri Bhardwaj RN and I am calling from the [facility] on behalf of your PCP, Alejandra Valle MD I understand you were recently in the hospital so I am calling to check in with you to ensure you are feeling well now that you're home. May I ask you a few questions related to your hospital stay and well-being? Yes Contact with patient post discharge, spoke to patient. Patient identified by name and . Do you feel your health is BETTER, WORSE, or the SAME since leaving the hospital? Better ACTION TAKEN: Patient indicated symptoms are better or same, no action required. Continue outreach. MEDICATIONS: Many patients have questions or concerns about their medications once they are home. Do you have any questions about taking your medications or which medication you should be on? No Do you need any medication refills at this time, including any of the medications you might take only when needed? No ACTION TAKEN: No action required For RNs or Pharmacy completing outreach ONLY, was a medication review completed? Yes SOCIAL: We would like to make sure you have what you need so that your basics needs are met - including your personal safety, food, housing and medications. Would you like to speak with a social work steam hoist operator to help give you support for any of these needs? No It can be normal to feel anxious or down during a time like this. Would you like to talk to a mental health professional about how you have been feeling? No ACTION TAKEN: No action taken DISCHARGE INTRUCTIONS: Your discharge instructions / After Visit Summary (AVS) are important in guiding you through the recovery process. Do you have any questions related to your discharge instructions? No Do you have all the necessary equipment and supplies at home? Yes ACTION TAKEN: No action required I would like to help you schedule a hospital follow-up virtual or telephone visit with your PCP. This is a great way for you to connect with your provider to ensure you have safely transitioned home. If you are agreeable, I will send your request to a copy chaser who will contact and assist you with that appointment. This will give you an opportunity to ask any questions or address any concerns you may have with your PCP. Inform the patient that if they have any questions or concerns prior to that appointment, to call their PCP's office right away. ACTION TAKEN: Patient desires an appointment - Routed to [facility] [[id number]] for scheduling telehealth visit (telephonic, virtual visit, or Facetime) within 7 days of discharge with PCP care team. Indicate hospital follow-up appointment needed within 7 days in Provider/FYI box. End Outreach. Your doctor would like us to remind you of the recommendations regarding the coronavirus (Covid19) outbreak: Avoid public places as much as possible. Avoid close contact (within 6 feet) with others you don t live with, especially if they are sick. Stay home if you are sick. Wash your hands regularly for at least 20 seconds with soap and water. Wear a cloth mask in public places to help reduce community spread. Do not go to your Doctor s office unless instructed to do so. For any non-emergency symptoms, call your Doctor s office to get instructions on how to manage (we might recommend a telephone or virtual visit). For emergency symptoms, proceed to Emergency Department as usual but inform them of cough and fever symptoms JIMMIE if present (or call on the way if possible). documented in this encounter [facility] 07-20-2021 Nurse Note Study Name: Mesfin Knott PI: Claudia Wilson Study Visit: Prior to Discharge I met with the patient for the prior to discharge for the [place] Study. Reaffirmed that the patient still wishes to participate in the study and continues to consent to the study. Medications and allergy lists updated and current. NIHSS completed per protocol: Yes NIHSS 09:05 1a. Mental Status - LOC: 0 =Alert; keenly responsive 1b. LOC Questions: 0 =Answers both questions correctly. 1c, LOC Commands: 0 =Performs both tasks correctly. 2. Gaze: 0 =Normal 3. Visual: 0 =No visual loss 4. Facial Palsy: 0 =Normal symmetrical movements 5a Motor Left Arm: 0 =No drift; limb holds 90 (or 45)degrees for full 10 seconds 5b. Motor Right Arm: 0 =No drift; limb holds 90 (or 45)degrees for full 10 seconds 6a. Motor Left Le =No drift; leg holds 30-degree position for full 5 seconds. 6b. Motor Right Le =No drift; leg holds 30-degree position for full 5 seconds. 7. Limb Ataxia: 0 =Absent 8. Sensory: 0 =No sensory loss 9. Best Language: 0 =No aphasia; normal 10. Dysarthria: 0 =Normal 11. Extinction and Inattention: 0 =No abnormality Distal Motor Function assesment completed per protocol: Yes: Distal Motor Left arm: 0 = Normal, No Flexion 5 seconds Right arm: 0 = Normal, No Flexion 5 seconds Gait assessment completed per protocol: Yes: Normal Modified Codie completed per protocol: Yes: 0 = No symptoms Discussed with the patient the importance of follow up in the study. Patient verbalized understanding. Next study visit will be in 30 days in clinic Patient contact information reaffirmed and updated. Coordinator contact information provided to the patient. Education provided: Protocol required tests/procedures and Follow up requirements/schedule Materials dispensed: Coordinator Contact Card Learning Support Services Director: Gricelda Ruiz [facility] Pager #: [phone] documented in this encounter [facility] 07-19-2021 Nurse Note Study Name: Mesfin Sophiasandra PI: Claudia Wilson Study Visit: Baseline/Screening I met with the patient for the index procedure visit for the C-Guardian Study. Reaffirmed that the patient still wishes to participate in the study and continues to consent to the study. Index procedure successfully complete Learning Support Services Director: Gricelda Ruiz [facility] Pager #: [phone] documented in this encounter [facility] 07-18-2021 Nurse Note Study Name: Mesfin Knott PI: Claudia Wilson Study Visit: Baseline/Screening I met with the patient for the Baseline visit for the C-Guardian Study. Medications and allergy lists updated and current. Discussed protocol defined reproductive requirements and risks. Patient verbalized understanding. NIHSS completed per protocol: Yes NIHSS 1a. Mental Status - LOC: 0 =Alert; keenly responsive 1b. LOC Questions: 0 =Answers both questions correctly. 1c, LOC Commands: 0 =Performs both tasks correctly. 2. Gaze: 0 =Normal 3. Visual: 0 =No visual loss 4. Facial Palsy: 0 =Normal symmetrical movements 5a Motor Left Arm: 0 =No drift; limb holds 90 (or 45)degrees for full 10 seconds 5b. Motor Right Arm: 0 =No drift; limb holds 90 (or 45)degrees for full 10 seconds 6a. Motor Left Le =No drift; leg holds 30-degree position for full 5 seconds. 6b. Motor Right Le =No drift; leg holds 30-degree position for full 5 seconds. 7. Limb Ataxia: 0 =Absent 8. Sensory: 0 =No sensory loss 9. Best Language: 0 =No aphasia; normal 10. Dysarthria: 0 =Normal 11. Extinction and Inattention: 0 =No abnormality Distal Motor Function assesment completed per protocol: Yes: Distal Motor Left arm: 0 = Normal, No Flexion 5 seconds Right arm: 0 = Normal, No Flexion 5 seconds Gait assessment completed per protocol: Yes: Normal Modified Codie completed per protocol: Yes: 0 = No symptoms Patient contact information reaffirmed and updated. Coordinator contact information provided to the patient. Education provided: Protocol required tests/procedures and Follow up requirements/schedule Materials dispensed: Coordinator Contact Card Learning Support Services Director: Gricelda Ruiz [facility] Pager #: [phone] documented in this encounter [facility] 07-18-2021 History and physical note VASCULAR SURGERY PREOPERATIVE H&P SERVICE DATE: 07/18/21 SERVICE TIME: 1200 PRIMARY CARE PHYSICIAN: Alejandra Valle MD REFERRING PROVIDER: Diomedes Davey [address] [facility] [id number] Consult requested for an opinion regarding the evaluation and treatment of the above. My final impression and recommendations will be communicated back to the requesting physician by way of the shared medical record or letter via US mail. CHIEF COMPLAINT/HISTORY OF PRESENT ILLNESS: Chief Complaint: carotid stenosis History of Present Illness: Mateo Bedoya is a 76 year old female presenting for preoperative H&P. History includes HTN, HLD, known bilateral asymptomatic carotid stenosis s/p left CEA 09/2019. Follow up duplex: 80-99% L ICA stenosis CTA: 80-99% stenosis L ICA. Scheduled for left carotid artery stenting with Dr. Davey. Denies TIA/stroke symptoms or amaurosis. No additional complaints. Hand dominance: Right Latex allergy: No Contrast dye allergy: No Patient is on following blood thinners: continue ASA/Plavix Pacemaker: No Does the patient accept blood products: Yes Tests: 06/15/21: Carotid duplex IMPRESSION Notified Dale Davey MD with results. Compared to prior study of 06/03/2021, no significant change in right side, increase in left internal carotid artery velocities and degree of stenosis. RIGHT SIDE Internal carotid artery: 60-79% stenosis. Tortuous vessel from mid to distal . Minimal plaque at origin with elevated velocities mid to distal vessel. Degree of stenosis appears overestimated due to tortuosity and contralateral 80-99% stenosis. Vertebral artery: Patent and antegrade flow noted. LEFT SIDE Common carotid artery: Eversion endarterectomy distally. Internal carotid artery: 80-99% stenosis. Eversion endartectomy now with significantly elevated velocities at the origin of the vessel. Focal linear structure distal to the eversion site. Vertebral artery: Patent and antegrade flow noted. CTA H/N IMPRESSION: Stable appearance of the brain since 03/27/2019. No evidence of an acute intracranial process. Small calcified posterior fossa meningioma with mild localized mass effect. 0% stenosis of the cervical right ICA by NASCET criteria. Postop changes following left carotid endarterectomy with recurrent stenosis in the distal left common carotid and proximal left internal carotid arteries. 81 percent stenosis of the cervical left ICA by NASCET criteria. Patent cervical vertebral arteries with severe stenosis at the left vertebral artery origin and mild stenosis in the distal cervical right vertebral artery. Extensive intracranial atherosclerotic disease as detailed above. Arterial blood flow was measured to detect acute large vessel occlusion by computer aided detection software: Not Performed. Concordance between software and imaging review: Not Applicable. 07/18/21: ECG Diagnosis: NORMAL SINUS RHYTHM NORMAL ECG 07/14/21: ECHO CONCLUSIONS: - Technically difficult exam due to body habitus. - Exam indication: Pre op clearance - The left ventricle is normal in size. There is mild septal left ventricular hypertrophy. Left ventricular systolic function is normal. EF = 64 5% (2D 4-ch.) Grade I left ventricular diastolic dysfunction. - The right ventricle is normal in size. Right ventricular systolic function is low normal. - There are no significant valvular abnormalities. - Definity contrast could not be administered d/t unavailability of staff. - The patient has not had a prior CC echocardiographic exam for comparison. 07/15/21: OSH Stress -full report in Epic PAST MEDICAL/SURGICAL/FAMILY/SOCIAL HISTORY PAST MEDICAL HISTORY Diagnosis Date artery spasm causes CP, she has nitro Benign neoplasm of brain (HCC) 2004 meningioma Carotid stenosis, asymptomatic, bilateral 10/02/2019 Dysthymic disorder Essential hypertension, benign Herpes zoster 10/26 Impaired fasting glucose 03/31 Obesity, unspecified Other and unspecified hyperlipidemia Pessary maintenance Urinary incontinence PAST SURGICAL HISTORY Procedure Laterality Date EXTRACTION, ERUPTED TOOTH OR EXPOSED ROOT (ELEVATION AND/OR FORCEPS REMOVAL) Walker teeth LAPAROSCOPIC CHOLEYCYSTECTOMY 90s Cholecystectomy, lap PAST SURGICAL HISTORY OF 80s 10 surgeries 14 abd tumors, all benign PAST SURGICAL HISTORY OF 12/16/2015 Dr. Reinoso, skin lesion removed PAST SURGICAL HISTORY OF Right 07/04/2016 right breast needle biopsy, benign - Dr. Reinoso PAST SURGICAL HISTORY OF N/A 05/23/2018 4 stents placed by [facility] PAST SURGICAL HISTORY OF N/A 08/14/2018 5th stent placed by [facility] PAST SURGICAL HISTORY OF Right right upper tooth implant REMOVAL OF OVARY(S) 80s Oophorectomy THYROIDECTOMY 2004 large nodule. Complete TOTAL ABDOM HYSTERECTOMY 80s Hysterectomy, BING TOTAL HIP JOINT REPLACEMENT Right 01/15/2020 [facility] FAMILY HISTORY Problem Relation Age of Onset Allergies Mother Cancer Mother thyroid Allergies Father Heart Father Diabetes Father Diabetes Brother Diabetes Maternal Aunt Cervical Cancer Paternal Grandmother SOCIAL HISTORY Social History Tobacco Use Smoking status: Never Smoker Smokeless tobacco: Never Used Vaping Use Vaping Use: Never used Substance Use Topics Alcohol use: Yes Comment: very rarely/ twice per year Drug use: No MEDICATIONS/ALLERGIES Current Outpatient Medications Medication Sig Dispense Refill oxybutynin ER (DITROPAN XL) 10 mg 24 hr tablet TAKE 1 TABLET BY MOUTH EVERY DAY 90 tablet 0 EPINEPHrine (EPIPEN) 0.3 mg/0.3 mL auto-injector Use as directed 1 Each 1 nitroglycerin sublingual (NITROSTAT) 0.4 mg SL tablet Dissolve 1 tablet under the tongue as needed. DISSOLVE ON TONGUE FOR CHEST PAIN. IF NO PAIN RELIEF, CALL 911 1 Bottle of 25 2 aspirin 325 mg tablet Take 1 tablet by mouth once daily. 30 tablet 0 ketoconazole (NIZORAL) 2 % cream Apply 1 application to affected area as needed. 60 g 5 gabapentin (NEURONTIN) 300 mg capsule TAKE 1-2 CAPSULES BY MOUTH THREE TIMES DAILY FOR 90 DAYS. (Patient taking differently: twice daily. ) 270 capsule 3 SYNTHROID 137 mcg tablet Take 1 tablet by mouth once daily. Take on empty stomach. For thyroid. 90 tablet 3 hydroCHLOROthiazide 12.5 mg capsule Take 12.5 mg by mouth once daily. atenolol (TENORMIN) 100 mg tablet Take 1 tablet by mouth twice daily. 180 tablet 3 losartan (COZAAR) 50 mg tablet Take 2 tablets by mouth once daily. atorvastatin (LIPITOR) 80 mg tablet Take 1 tablet by mouth once daily. clopidogrel (PLAVIX) 75 mg tablet Take 1 tablet by mouth once daily. 30 tablet 11 TUMS CALCIUM FOR LIFE BONE 750 MG ORAL CHEW Take (2) two per day. 0 MULTIVITAMIN TABLET Take one(1) tablet daily. 0 mupirocin (BACTROBAN) 2 % ointment Use cotton tipped applicator to apply to each nostril twice daily for 3 doses. Begin using the day before surgery. 22 g 0 Current Facility-Administered Medications Medication Dose Route Frequency Provider Last Rate Last Admin perflutren lipid microspheres 1.3 mL in NaCl (PF) 0.9% 10 mL injection (DEFINITY) INTRAVENOUS DIRECTED PRN Ashleigh Marsh APRN.MANAGEMENT INTERN sodium chloride 0.9 % (flush) 10 mL (BD POSIFLUSH) 10 mL INTRAVENOUS DIRECTED PRN Ashleigh Marsh APRN.MANAGEMENT INTERN ALLERGIES Allergen Reactions Bee Stings And Inse* Swelling Codeine GI Upset Morphine Other: See Comments Pt is unable to sleep Percocet [Acetamino* Intolerance Increased and irregular heart rate Percodan [Aspirin] Intolerance Increased and irregular heart rate REVIEW OF SYSTEMS Constitutional: No weight loss, malaise or fevers. HEENT: Negative for frequent or significant headaches, no vision changes. Respiratory: Negative for cough, wheezing, or shortness of breath Cardiovascular: Negative for chest pain, leg swelling or palpitations. Reports spasms in her chest that radiate into her neck, multiple episodes dating back to 2019. Follows with Cardiology regularly- last visit 05/2021. Gatrointestinal: Negative for abdominal discomfort, blood in stools or black stools or change in bowel habits Genitourinary: No history of dysuria, frequency, or incontinence Musculoskeletal: Negative for joint pain or swelling, back pain or muscle pain. Reports left shoulder injury-underwent physical therapy Endocrine: Negative for cold or heat intolerance, polyuria, polydipsia Hematology/Lymphatic: Positive for bruises easily attributes to medication Neurologic: No syncope, paralysis, seizures or tremors Integumentary: Negative for lesions, rash, and itching. PHYSICAL EXAM VITALS: BP 123/62 Pulse 71 Temp (Src) 98.4 (Oral) Resp 18 Ht 5' 7 (1.70m) Wt 209 lb 1.6 oz (94.8kg) SpO2 96% BMI 32.74 kg/(m^2). General: Alert and oriented, No acute distress Integumentary: Normal color, no rash, no lesions., bilateral groins clean/dry/intact. HEENT: EOM intact. Cardiovascular: Normal S1 & S2., Pulse regular. Lungs: Normal breath sounds, no wheezes or crackles. Abdomen:Soft, non-tender, no rigidity. Extremities: No deformity, no edema or tenderness, no joint swelling or clubbing. Neurological: Normal cognition and motor skills. Gait normal. No weakness or sensory deficit. Vascular: Radial Pulse Right: Normal - Left: Normal ASSESSMENT Mateo Bedoya is a 76 year old female with history of bilateral asymptomatic carotid stenosis s/p left CEA 09/2019. Follow up duplex: 80-99% L ICA stenosis, CTA: 80-99% stenosis L ICA. Scheduled for left carotid artery stenting with Dr. Davey. Medication list reviewed, updated, and verified with patient. PLAN/RECOMMENDATIONS Scheduled for left carotid artery stent with Dr. Davey on 07/19/21. Ready for surgery pending Labs, COVID test Consent: Done SIGNATURE: Ashleigh Marsh APRN.CNP PATIENT NAME: Mateo Bedoya DATE: 07/18/21 TIME: 1319 documented in this encounter [facility] 07-18-2021 History of Present illness Narrative AMBULATORY PATIENT EDUCATION READINESS TO LEARN COGNITIVE ABILITY: Alert and oriented MOTIVATION TO LEARN: Eager FAMILY SUPPORT: High - Very involved in pt care INSTRUCTION PROVIDED TO: Patient and Family member PATIENT LEARNS BEST BY: Individual Instruction Written Instruction - Hand-outs Verbal Instruction FACTORS AFFECTING LEARNING: None PHYSICAL LIMITATIONS AFFECTING LEARNING: None LEARNING RESPONSE METHOD OF INSTRUCTION: Individual instruction Written instruction - handouts Verbal instruction PATIENT / FAMILY RESPONSE: Verbalizes understanding of: PRE-OPERATIVE INSTRUCTIONS-Correct action to take to follow pre-operative instructions FOLLOW-UP PLAN: Office contact information provided. SUPPLEMENTAL MATERIAL: Vascular Surgery Preparation Handout, Bactroban Nasal Ointment Instructions REFERRAL (RECOMMENDATION): None Electronically Signed By: Ashleigh Marsh APRN.CNP In Department: VASCULAR SURG DEPT documented in this encounter [facility] 07-18-2021 Instructions Ashleigh Marsh APRN.CNP - 07/18/2021 12:00 PM EDT VASCULAR SURGERY PREOPERATIVE INSTRUCTIONS The following instructions were given in oral and written form: Do not take NSAIDs such as ibuprofen (Motrin, Advil) and naproxen (Aleve), or Excedrin for a week before surgery. It is OK to take Tylenol. - Hold vitamins and supplements for a week before surgery. Continue taking your Aspirin and clopidogrel (Plavix) Hibiclens (body wash) and Listerine (mouth wash) were given as well as instructions on how to use them. Do not eat or drink after midnight on the night before surgery. DO NOT TAKE Losartan (Cozaar) and Hydrochlorothiazide (HCTZ) on the morning of surgery. On the morning of surgery- take the rest of your morning medications with small sips of water. Follow anesthesia instructions regarding your other medications before surgery and on the morning of surgery. A prescription for Mupirocin (Bactroban) 2% was given to you. You need to fill the prescription and begin using it on the day before surgery. Please call us and inform us about any significant health updates or new medications added to your regimen before surgery. Signed: Ashleigh Marsh APRN.MARTIN documented in this encounter [facility] 07-15-2021 Miscellaneous Notes Filed Refill request received from pharmacy. Patient last seen in office on 10/14/20. 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 TC to pt, left detailed message on secure identified voicemail. Miguel Kendrick LPN Patient stated [facility] told her they did not get a script for her Epipen. [facility] says it was received. Please resend. documented in this encounter [facility] 07-13-2021 History of Present illness Narrative Chief Complaint Patient presents with: 6 Month Exam HPI Mateo Bedoya is a 76 year old female who presents here today for a 6 month follow up. Pt here today with her spouse for a routine 6 month follow up. She does have an advanced directive. Denies feeling depressed or hopeless. Denies any stomach, bowel or abnormal urinary issues. Follows with Luanne Kent for OAB. On current regimen of Ditropan XL 10 mg once daily. DM: Denies checking sugars, having low blood sugars or neuropathy symptoms. Currently on no medications and controlled with lifestyle. Lipid/CAD: Follows with Cardio and Vascular. Pt scheduled for upcoming surgery on 07/19/21 due to left carotid stenosis by Dr. Davey. Follows with Cardio, Dr. Man. Does try to watch diet and exercise. Denies any chest pain, sob or dizziness. She is doing a clinical trial next week; having a carotid stent that has been used in [place] for many years. HTN: Denies checking BP at home or having symptoms of chest pain, sob or dizziness. On current regimen of Losartan 50 mg 2 tabs daily, Atenolol 100 mg bid and HCTZ 12.5 mg once daily. She has episodes of what she calls Spasms which require her to take the Nitro, last one was May. She states she she tends to have an episode about once a year. She states she has them at rest. None with exertion. Pain: Stable on current regimen of Gabapentin 300 mg 2 tabs po bid. Past medical history, appointments, medications, allergies reviewed. Previous Medical History PAST MEDICAL HISTORY Diagnosis Date artery spasm causes CP, she has nitro Benign neoplasm of brain (HCC) 2004 meningioma Carotid stenosis, asymptomatic, bilateral 10/02/2019 Dysthymic disorder Essential hypertension, benign Herpes zoster 10/26 Impaired fasting glucose 03/31 Obesity, unspecified Other and unspecified hyperlipidemia Pessary maintenance Urinary incontinence Previous Surgical History PAST SURGICAL HISTORY Procedure Laterality Date EXTRACTION, ERUPTED TOOTH OR EXPOSED ROOT (ELEVATION AND/OR FORCEPS REMOVAL) Walker teeth LAPAROSCOPIC CHOLEYCYSTECTOMY 90s Cholecystectomy, lap PAST SURGICAL HISTORY OF 80s 10 surgeries 14 abd tumors, all benign PAST SURGICAL HISTORY OF 12/16/2015 Dr. Reinoso, skin lesion removed PAST SURGICAL HISTORY OF Right 07/04/2016 right breast needle biopsy, benign - Dr. Reinoso PAST SURGICAL HISTORY OF N/A 05/23/2018 4 stents placed by [facility] PAST SURGICAL HISTORY OF N/A 08/14/2018 5th stent placed by [facility] PAST SURGICAL HISTORY OF Right right upper tooth implant REMOVAL OF OVARY(S) 80s Oophorectomy THYROIDECTOMY 2004 large nodule. Complete TOTAL ABDOM HYSTERECTOMY 80s Hysterectomy, BING TOTAL HIP JOINT REPLACEMENT Right 01/15/2020 [facility] Family History FAMILY HISTORY Problem Relation Age of Onset Allergies Mother Cancer Mother thyroid Allergies Father Heart Father Diabetes Father Diabetes Brother Diabetes Maternal Aunt Cervical Cancer Paternal Grandmother Patient Allergies ALLERGIES Allergen Reactions Bee Stings And Inse* Swelling Codeine GI Upset Morphine Other: See Comments Pt is unable to sleep Percocet [Acetamino* Intolerance Increased and irregular heart rate Percodan [Aspirin] Intolerance Increased and irregular heart rate Current Medications Current Outpatient Medications on File Prior to Visit Medication Sig aspirin 325 mg tablet Take 1 tablet by mouth once daily. ketoconazole (NIZORAL) 2 % cream Apply 1 application to affected area as needed. gabapentin (NEURONTIN) 300 mg capsule TAKE 1-2 CAPSULES BY MOUTH THREE TIMES DAILY FOR 90 DAYS. (Patient taking differently: twice daily. ) oxybutynin ER (DITROPAN XL) 10 mg 24 hr tablet Take 1 tablet by mouth once daily. SYNTHROID 137 mcg tablet Take 1 tablet by mouth once daily. Take on empty stomach. For thyroid. hydroCHLOROthiazide 12.5 mg capsule Take 12.5 mg by mouth once daily. atenolol (TENORMIN) 100 mg tablet Take 1 tablet by mouth twice daily. losartan (COZAAR) 50 mg tablet Take 2 tablets by mouth once daily. nitroglycerin sublingual (NITROSTAT) 0.4 mg SL tablet Dissolve 1 tablet under the tongue as needed. DISSOLVE ON TONGUE FOR CHEST PAIN. IF NO PAIN RELIEF, CALL 911 atorvastatin (LIPITOR) 80 mg tablet Take 1 tablet by mouth once daily. clopidogrel (PLAVIX) 75 mg tablet Take 1 tablet by mouth once daily. EPINEPHrine (EPIPEN) 0.3 mg/0.3 mL auto-injector Use as directed (Patient taking differently: Use as directed Indications: a significant type of allergic reaction called anaphylaxis) TUMS CALCIUM FOR LIFE BONE 750 MG ORAL CHEW Take (2) two per day. MULTIVITAMIN TABLET Take one(1) tablet daily. Current Facility-Administered Medications on File Prior to Visit Medication perflutren lipid microspheres 1.3 mL in NaCl (PF) 0.9% 10 mL injection (DEFINITY) sodium chloride 0.9 % (flush) 10 mL (BD POSIFLUSH) Social History Social History Tobacco Use Smoking status: Never Smoker Smokeless tobacco: Never Used Vaping Use Vaping Use: Never used Substance Use Topics Alcohol use: Yes Comment: very rarely/ twice per year Drug use: No EXAM: BP 134/74 Pulse 71 Resp 16 Wt 93.1 kg (205 lb 4.8 oz) LMP (LMP Unknown) BMI 32.15 kg/m General Appearance: Well appearing, alert, in no acute distress, well-hydrated, well nourished. and Overweight. Lungs: Lungs clear to auscultation. No wheezing, rhonchi, rales.. Heart: RRR without murmur, gallop, or rubs. No ectopy. Health Maintenance List DIABETIC FOOT EXAM Never done HEPATITIS C SCREENING Never done COLORECTAL CANCER SCREENING due on 01/18/2020 HEMOGLOBIN/HEMATOCRIT due on 01/16/2021 ADVANCE DIRECTIVE DISCUSSION Never done URINE ALBUMIN:CREATININE RATIO due on 05/28/2021 DEPRESSION SCREENING due on 06/02/2021 HBA1C due on 06/21/2021 MAMMOGRAM due on 08/02/2021 DILATED RETINAL EXAM due on 08/03/2021 LDL CHOLESTEROL due on 12/22/2021 SERUM CREATININE due on 12/22/2021 ANNUAL PCP TEAM CHRONIC DISEASE VISIT due on 12/29/2021 BP CONTROLLED (<130/80) due on 06/15/2022 DTAP,TDAP,TD(3 - Td or Tdap) due on 10/12/2026 BONE DENSITY Completed INFLUENZA Completed PNEUMOVAX AGE 65 AND OVER WITH 5YR LOOKBACK Completed SHINGRIX VACCINE Completed COVID-19 VACCINE Completed MENINGOCOCCAL CONJUGATE Aged Out Data reviewed Appointment on 07/07/2021 Component Date Value Hep C Antibody IA 07/07/2021 Negative Cholesterol, Total 07/07/2021 138 Triglyceride 07/07/2021 204 (A) HDL Cholesterol 07/07/2021 31 (A) Non HDL Cholesterol 07/07/2021 107 Fasting Time 07/07/2021 12 VLDL Cholesterol 07/07/2021 41 (A) TC:HDL Ratio 07/07/2021 4.45 LDL Cholesterol 07/07/2021 66 LDL:HDL Ratio 07/07/2021 2.13 Protein, Total 07/07/2021 7.1 Albumin 07/07/2021 4.0 Calcium, Total 07/07/2021 10.0 Bilirubin, Total 07/07/2021 0.4 Alkaline Phosphatase 07/07/2021 113 AST 07/07/2021 12 (A) ALT 07/07/2021 16 Glucose 07/07/2021 126 (A) BUN 07/07/2021 25 (A) Creatinine 07/07/2021 1.11 (A) Sodium 07/07/2021 141 Potassium 07/07/2021 3.8 Chloride 07/07/2021 103 CO2 07/07/2021 26 Anion Gap 07/07/2021 12 Estimated Glomerular Rainer* 07/07/2021 52 (A) Hemoglobin A1C 07/07/2021 6.5 (A) Estimated Average Glucose 07/07/2021 140 TSH 07/07/2021 2.290 Creatinine, Ur Random (U* 07/07/2021 118.9 Albumin, Urine Random 07/07/2021 <12.0 Albumin/Creat Ratio 07/07/2021 <10 Hospital Outpatient Visit on 06/15/2021 Component Date Value Creatinine (POCT) 06/15/2021 1.10 eGFR (POCT) 06/15/2021 53 ASSESSMENT/PLAN: 1. Type 2 diabetes mellitus with stage 3a chronic kidney disease, without long-term current use of insulin (HCC) - ICD9: 250.40, 585.3, ICD10: E11.22, N18.31 (primary diagnosis) Controlled. - Continue current medications 2. Encounter for screening mammogram for malignant neoplasm of breast - ICD9: V76.12, ICD10: Z12.31 - Encouraged monthly BSE - Follow up for annual exam in one year. - KIM SCREENING 3. Screening for colon cancer - ICD9: V76.51, ICD10: Z12.11 - FECAL OCCULT BLOOD TEST 4. Essential hypertension, benign - ICD9: 401.1, ICD10: I10 - good control - Continue current medication(s) - Recommended regular aerobic exercise. - Recommend home blood pressure monitoring, to bring results in on next visit - Goal of BP <130/80 5. Hyperlipidemia, mixed - ICD9: 272.2, ICD10: E78.2 - suboptimal control - Continue current medication. - Encouraged following a low fat, low cholesterol diet. - Discussed the benefits of regular aerobic exercise and weight loss. 6. Coronary artery disease involving [place] coronary artery of [place] heart, unspecified whether angina present - ICD9: 414.01, ICD10: I25.10 Continue current medications. Continue with Cardio 7. Acquired hypothyroidism - ICD9: 244.9, ICD10: E03.9 - Instructed patient on importance of taking on an empty stomach either first thing in the morning or at bedtime. Continue current medications. 8. Primary osteoarthritis of hip, unspecified laterality - ICD9: 715.15, ICD10: M16.10 Stable Continue current medications. 9. Carotid stenosis, asymptomatic, bilateral - ICD9: 433.10, 433.30, ICD10: I65.23 Continue current medications. Continue with Cardio, Dr. Man Follow up in 6 months with fasting labs prior. I agree with the Chief Complaint, ROS, and Past Histories independently gathered by the clinical learning support services director and the remaining scribed note accurately describes my personal service to the patient. Medical Decision Making: Problems: Moderate: 2+ stable chronic illnesses Data: Unique test result(s) reviewed: 3+ Unique test(s) ordered: 3+ Risk: Moderate: Drug management Medical Decision Making Level: 4 - Moderate Alejandra Valle MD The documentation for this note was completed by Radha Stein Ma acting as scribe for Alejandra Valle MD. July 13, 2021 1:09 PM. Radha Stein Ma documented in this encounter [facility] documented in this encounter [facility] History of Past illness Narrative* Problem Noted Date Resolved Date Prediabetes 01/13/2020 07/11/2021 Last Assessment & Plan: Assessment: no rx, A1c 6.9 01/07/2020 Class 1 obesity due to exces s calories with body mass index (BMI) of 33.0 to 33.9 in adult 01/13/2020 07/11/2021 Last Assessment & Plan: Assessment: Body mass index is 33.95 kg/m . Post-operative state 10/22/2019 12/27/2020 Overview: H/A: asymptomatic carotid lesion s/p CEA 10/20, no shunt used Plan: Discharge today once meeting discharge criteria and drain is pulled Neuro: Pain controlled on PO regimen CV: Home anti-HTN regimen resumed, asa/plavix resumed; drain with 32cc out, will remove Resp: no difficulties breathing or swallowing, on room air FEN/GI: diet today, prn anti-emetics available : Voiding spontaneously without difficulties; home ABEL and ARB resumed Heme: F/u AM labs ID: no further need for abx Ppx: [facility] Dispo: d/c home today once ANGY removed after staff approval, tolerating diet, ambulating w/o difficulties, voiding spontaneously Carotid artery stenosis 10/21/2019 07/12/19 Last Assessment & Plan: Assessment: s/p left endarterectomy 09/2019, following [facility] vascular, pending f/u US in 5 mos Acute medial meniscus tear of right knee 014 12/27/2020 documented as of this encounter (statuses as of 07/13/2021) [facility] History of Past illness Narrative* Problem Noted Date Resolved Date Prediabetes 01/13/2020 07/11/2021 Last Assessment & Plan: Assessment: no rx, A1c 6.9 01/07/2020 Class 1 obesity due to exces s calories with body mass index (BMI) of 33.0 to 33.9 in adult 01/13/2020 07/11/2021 Last Assessment & Plan: Assessment: Body mass index is 33.95 kg/m . Post-operative state 10/22/2019 12/27/2020 Overview: H/A: asymptomatic carotid lesion s/p CEA 10/20, no shunt used Plan: Discharge today once meeting discharge criteria and drain is pulled Neuro: Pain controlled on PO regimen CV: Home anti-HTN regimen resumed, asa/plavix resumed; drain with 32cc out, will remove Resp: no difficulties breathing or swallowing, on room air FEN/GI: diet today, prn anti-emetics available : Voiding spontaneously without difficulties; home ABEL and ARB resumed Heme: F/u AM labs ID: no further need for abx Ppx: [facility] Dispo: d/c home today once ANGY removed after staff approval, tolerating diet, ambulating w/o difficulties, voiding spontaneously Carotid artery stenosis 10/21/2019 07/12/19 Last Assessment & Plan: Assessment: s/p left endarterectomy 09/2019, following [facility] vascular, pending f/u US in 5 mos Acute medial meniscus tear of right knee 014 12/27/2020 documented as of this encounter (statuses as of 07/15/2021) [facility] History of Past illness Narrative* Problem Noted Date Resolved Date Prediabetes 01/13/2020 07/11/2021 Last Assessment & Plan: Assessment: no rx, A1c 6.9 01/07/2020 Class 1 obesity due to exces s calories with body mass index (BMI) of 33.0 to 33.9 in adult 01/13/2020 07/11/2021 Last Assessment & Plan: Assessment: Body mass index is 33.95 kg/m . Post-operative state 10/22/2019 12/27/2020 Overview: H/A: asymptomatic carotid lesion s/p CEA 10/20, no shunt used Plan: Discharge today once meeting discharge criteria and drain is pulled Neuro: Pain controlled on PO regimen CV: Home anti-HTN regimen resumed, asa/plavix resumed; drain with 32cc out, will remove Resp: no difficulties breathing or swallowing, on room air FEN/GI: diet today, prn anti-emetics available : Voiding spontaneously without difficulties; home ABEL and ARB resumed Heme: F/u AM labs ID: no further need for abx Ppx: [facility] Dispo: d/c home today once ANGY removed after staff approval, tolerating diet, ambulating w/o difficulties, voiding spontaneously Carotid artery stenosis 10/21/2019 07/12/19 Last Assessment & Plan: Assessment: s/p left endarterectomy 09/2019, following [facility], pending f/u US in 5 mos Acute medial meniscus tear of right knee 014 12/27/2020 documented as of this encounter (statuses as of 07/15/2021) [facility] History of Past illness Narrative* Problem Noted Date Resolved Date Prediabetes 01/13/2020 07/11/2021 Last Assessment & Plan: Assessment: no rx, A1c 6.9 01/07/2020 Class 1 obesity due to exces s calories with body mass index (BMI) of 33.0 to 33.9 in adult 01/13/2020 07/11/2021 Last Assessment & Plan: Assessment: Body mass index is 33.95 kg/m . Post-operative state 10/22/2019 12/27/2020 Overview: H/A: asymptomatic carotid lesion s/p CEA 10/20, no shunt used Plan: Discharge today once meeting discharge criteria and drain is pulled Neuro: Pain controlled on PO regimen CV: Home anti-HTN regimen resumed, asa/plavix resumed; drain with 32cc out, will remove Resp: no difficulties breathing or swallowing, on room air FEN/GI: diet today, prn anti-emetics available : Voiding spontaneously without difficulties; home ABEL and ARB resumed Heme: F/u AM labs ID: no further need for abx Ppx: [facility] Dispo: d/c home today once ANGY removed after staff approval, tolerating diet, ambulating w/o difficulties, voiding spontaneously Carotid artery stenosis 10/21/2019 07/12/19 Last Assessment & Plan: Assessment: s/p left endarterectomy 09/2019, following [facility], pending f/u US in 5 mos Acute medial meniscus tear of right knee 014 12/27/2020 documented as of this encounter (statuses as of 07/18/2021) [facility] History of Past illness Narrative* Problem Noted Date Resolved Date Prediabetes 01/13/2020 07/11/2021 Last Assessment & Plan: Assessment: no rx, A1c 6.9 01/07/2020 Class 1 obesity due to exces s calories with body mass index (BMI) of 33.0 to 33.9 in adult 01/13/2020 07/11/2021 Last Assessment & Plan: Assessment: Body mass index is 33.95 kg/m . Post-operative state 10/22/2019 12/27/2020 Overview: H/A: asymptomatic carotid lesion s/p CEA 10/20, no shunt used Plan: Discharge today once meeting discharge criteria and drain is pulled Neuro: Pain controlled on PO regimen CV: Home anti-HTN regimen resumed, asa/plavix resumed; drain with 32cc out, will remove Resp: no difficulties breathing or swallowing, on room air FEN/GI: diet today, prn anti-emetics available : Voiding spontaneously without difficulties; home ABEL and ARB resumed Heme: F/u AM labs ID: no further need for abx Ppx: [facility] Dispo: d/c home today once ANGY removed after staff approval, tolerating diet, ambulating w/o difficulties, voiding spontaneously Carotid artery stenosis 10/21/2019 07/12/19 Last Assessment & Plan: Assessment: s/p left endarterectomy 09/2019, following [facility], pending f/u US in 5 mos Acute medial meniscus tear of right knee 014 12/27/2020 documented as of this encounter (statuses as of 07/18/2021) [facility] History of Past illness Narrative* Problem Noted Date Resolved Date Prediabetes 01/13/2020 07/11/2021 Last Assessment & Plan: Assessment: no rx, A1c 6.9 01/07/2020 Class 1 obesity due to exces s calories with body mass index (BMI) of 33.0 to 33.9 in adult 01/13/2020 07/11/2021 Last Assessment & Plan: Assessment: Body mass index is 33.95 kg/m . Post-operative state 10/22/2019 12/27/2020 Overview: H/A: asymptomatic carotid lesion s/p CEA 10/20, no shunt used Plan: Discharge today once meeting discharge criteria and drain is pulled Neuro: Pain controlled on PO regimen CV: Home anti-HTN regimen resumed, asa/plavix resumed; drain with 32cc out, will remove Resp: no difficulties breathing or swallowing, on room air FEN/GI: diet today, prn anti-emetics available : Voiding spontaneously without difficulties; home ABEL and ARB resumed Heme: F/u AM labs ID: no further need for abx Ppx: [facility] Dispo: d/c home today once ANGY removed after staff approval, tolerating diet, ambulating w/o difficulties, voiding spontaneously Carotid artery stenosis 10/21/2019 07/12/19 Last Assessment & Plan: Assessment: s/p left endarterectomy 09/2019, following [facility], pending f/u US in 5 mos Acute medial meniscus tear of right knee 014 12/27/2020 documented as of this encounter (statuses as of 07/18/2021) [facility] History of Past illness Narrative* Problem Noted Date Resolved Date Prediabetes 01/13/2020 07/11/2021 Last Assessment & Plan: Assessment: no rx, A1c 6.9 01/07/2020 Class 1 obesity due to exces s calories with body mass index (BMI) of 33.0 to 33.9 in adult 01/13/2020 07/11/2021 Last Assessment & Plan: Assessment: Body mass index is 33.95 kg/m . Post-operative state 10/22/2019 12/27/2020 Overview: H/A: asymptomatic carotid lesion s/p CEA 10/20, no shunt used Plan: Discharge today once meeting discharge criteria and drain is pulled Neuro: Pain controlled on PO regimen CV: Home anti-HTN regimen resumed, asa/plavix resumed; drain with 32cc out, will remove Resp: no difficulties breathing or swallowing, on room air FEN/GI: diet today, prn anti-emetics available : Voiding spontaneously without difficulties; home ABEL and ARB resumed Heme: F/u AM labs ID: no further need for abx Ppx: [facility] Dispo: d/c home today once ANGY removed after staff approval, tolerating diet, ambulating w/o difficulties, voiding spontaneously Carotid artery stenosis 10/21/2019 07/12/19 Last Assessment & Plan: Assessment: s/p left endarterectomy 09/2019, following [facility], pending f/u US in 5 mos Acute medial meniscus tear of right knee 014 12/27/2020 documented as of this encounter (statuses as of 07/19/2021) [facility] History of Past illness Narrative* Problem Noted Date Resolved Date Prediabetes 01/13/2020 07/11/2021 Last Assessment & Plan: Assessment: no rx, A1c 6.9 01/07/2020 Class 1 obesity due to exces s calories with body mass index (BMI) of 33.0 to 33.9 in adult 01/13/2020 07/11/2021 Last Assessment & Plan: Assessment: Body mass index is 33.95 kg/m . Post-operative state 10/22/2019 12/27/2020 Overview: H/A: asymptomatic carotid lesion s/p CEA 10/20, no shunt used Plan: Discharge today once meeting discharge criteria and drain is pulled Neuro: Pain controlled on PO regimen CV: Home anti-HTN regimen resumed, asa/plavix resumed; drain with 32cc out, will remove Resp: no difficulties breathing or swallowing, on room air FEN/GI: diet today, prn anti-emetics available : Voiding spontaneously without difficulties; home ABEL and ARB resumed Heme: F/u AM labs ID: no further need for abx Ppx: [facility] Dispo: d/c home today once ANGY removed after staff approval, tolerating diet, ambulating w/o difficulties, voiding spontaneously Carotid artery stenosis 10/21/2019 07/12/19 Last Assessment & Plan: Assessment: s/p left endarterectomy 09/2019, following [facility], pending f/u US in 5 mos Acute medial meniscus tear of right knee 014 12/27/2020 documented as of this encounter (statuses as of 07/20/2021) [facility] History of Past illness Narrative* Problem Noted Date Resolved Date Prediabetes 01/13/2020 07/11/2021 Last Assessment & Plan: Assessment: no rx, A1c 6.9 01/07/2020 Class 1 obesity due to exces s calories with body mass index (BMI) of 33.0 to 33.9 in adult 01/13/2020 07/11/2021 Last Assessment & Plan: Assessment: Body mass index is 33.95 kg/m . Post-operative state 10/22/2019 12/27/2020 Overview: H/A: asymptomatic carotid lesion s/p CEA 10/20, no shunt used Plan: Discharge today once meeting discharge criteria and drain is pulled Neuro: Pain controlled on PO regimen CV: Home anti-HTN regimen resumed, asa/plavix resumed; drain with 32cc out, will remove Resp: no difficulties breathing or swallowing, on room air FEN/GI: diet today, prn anti-emetics available : Voiding spontaneously without difficulties; home ABEL and ARB resumed Heme: F/u AM labs ID: no further need for abx Ppx: [facility] Dispo: d/c home today once ANGY removed after staff approval, tolerating diet, ambulating w/o difficulties, voiding spontaneously Carotid artery stenosis 10/21/2019 07/12/19 Last Assessment & Plan: Assessment: s/p left endarterectomy 09/2019, following [facility], pending f/u US in 5 mos Acute medial meniscus tear of right knee 014 12/27/2020 documented as of this encounter (statuses as of 07/21/2021) [facility] History of Past illness Narrative* Problem Noted Date Resolved Date Prediabetes 01/13/2020 07/11/2021 Last Assessment & Plan: Assessment: no rx, A1c 6.9 01/07/2020 Class 1 obesity due to exces s calories with body mass index (BMI) of 33.0 to 33.9 in adult 01/13/2020 07/11/2021 Last Assessment & Plan: Assessment: Body mass index is 33.95 kg/m . Post-operative state 10/22/2019 12/27/2020 Overview: H/A: asymptomatic carotid lesion s/p CEA 10/20, no shunt used Plan: Discharge today once meeting discharge criteria and drain is pulled Neuro: Pain controlled on PO regimen CV: Home anti-HTN regimen resumed, asa/plavix resumed; drain with 32cc out, will remove Resp: no difficulties breathing or swallowing, on room air FEN/GI: diet today, prn anti-emetics available : Voiding spontaneously without difficulties; home ABEL and ARB resumed Heme: F/u AM labs ID: no further need for abx Ppx: [facility] Dispo: d/c home today once ANGY removed after staff approval, tolerating diet, ambulating w/o difficulties, voiding spontaneously Carotid artery stenosis 10/21/2019 07/12/19 Last Assessment & Plan: Assessment: s/p left endarterectomy 09/2019, following [facility], pending f/u US in 5 mos Acute medial meniscus tear of right knee 014 12/27/2020 documented as of this encounter (statuses as of 07/25/2021) [facility] History of Past illness Narrative* Problem Noted Date Resolved Date Prediabetes 01/13/2020 07/11/2021 Last Assessment & Plan: Assessment: no rx, A1c 6.9 01/07/2020 Class 1 obesity due to exces s calories with body mass index (BMI) of 33.0 to 33.9 in adult 01/13/2020 07/11/2021 Last Assessment & Plan: Assessment: Body mass index is 33.95 kg/m . Post-operative state 10/22/2019 12/27/2020 Overview: H/A: asymptomatic carotid lesion s/p CEA 10/20, no shunt used Plan: Discharge today once meeting discharge criteria and drain is pulled Neuro: Pain controlled on PO regimen CV: Home anti-HTN regimen resumed, asa/plavix resumed; drain with 32cc out, will remove Resp: no difficulties breathing or swallowing, on room air FEN/GI: diet today, prn anti-emetics available : Voiding spontaneously without difficulties; home ABEL and ARB resumed Heme: F/u AM labs ID: no further need for abx Ppx: [facility] Dispo: d/c home today once ANGY removed after staff approval, tolerating diet, ambulating w/o difficulties, voiding spontaneously Carotid artery stenosis 10/21/2019 07/12/19 Last Assessment & Plan: Assessment: s/p left endarterectomy 09/2019, following [facility], pending f/u US in 5 mos Acute medial meniscus tear of right knee 014 12/27/2020 documented as of this encounter (statuses as of 08/02/2021) [facility] History of Past illness Narrative* Problem Noted Date Resolved Date Prediabetes 01/13/2020 07/11/2021 Last Assessment & Plan: Assessment: no rx, A1c 6.9 01/07/2020 Class 1 obesity due to exces s calories with body mass index (BMI) of 33.0 to 33.9 in adult 01/13/2020 07/11/2021 Last Assessment & Plan: Assessment: Body mass index is 33.95 kg/m . Post-operative state 10/22/2019 12/27/2020 Overview: H/A: asymptomatic carotid lesion s/p CEA 10/20, no shunt used Plan: Discharge today once meeting discharge criteria and drain is pulled Neuro: Pain controlled on PO regimen CV: Home anti-HTN regimen resumed, asa/plavix resumed; drain with 32cc out, will remove Resp: no difficulties breathing or swallowing, on room air FEN/GI: diet today, prn anti-emetics available : Voiding spontaneously without difficulties; home ABEL and ARB resumed Heme: F/u AM labs ID: no further need for abx Ppx: [facility] Dispo: d/c home today once ANGY removed after staff approval, tolerating diet, ambulating w/o difficulties, voiding spontaneously Carotid artery stenosis 10/21/2019 07/12/19 Last Assessment & Plan: Assessment: s/p left endarterectomy 09/2019, following [facility], pending f/u US in 5 mos Acute medial meniscus tear of right knee 014 12/27/2020 documented as of this encounter (statuses as of 08/18/2021) [facility] History of Past illness Narrative* Problem Noted Date Resolved Date Prediabetes 01/13/2020 07/11/2021 Last Assessment & Plan: Assessment: no rx, A1c 6.9 01/07/2020 Class 1 obesity due to exces s calories with body mass index (BMI) of 33.0 to 33.9 in adult 01/13/2020 07/11/2021 Last Assessment & Plan: Assessment: Body mass index is 33.95 kg/m . Post-operative state 10/22/2019 12/27/2020 Overview: H/A: asymptomatic carotid lesion s/p CEA 10/20, no shunt used Plan: Discharge today once meeting discharge criteria and drain is pulled Neuro: Pain controlled on PO regimen CV: Home anti-HTN regimen resumed, asa/plavix resumed; drain with 32cc out, will remove Resp: no difficulties breathing or swallowing, on room air FEN/GI: diet today, prn anti-emetics available : Voiding spontaneously without difficulties; home ABEL and ARB resumed Heme: F/u AM labs ID: no further need for abx Ppx: SQ[facility] Dispo: d/c home today once ANGY removed after staff approval, tolerating diet, ambulating w/o difficulties, voiding spontaneously Carotid artery stenosis 10/21/2019 07/12/19 Last Assessment & Plan: Assessment: s/p left endarterectomy 09/2019, following [facility], pending f/u US in 5 mos Acute medial meniscus tear of right knee 014 12/27/2020 documented as of this encounter (statuses as of 08/18/2021) [facility] History of Past illness Narrative* Problem Noted Date Resolved Date Prediabetes 01/13/2020 07/11/2021 Last Assessment & Plan: Assessment: no rx, A1c 6.9 01/07/2020 Class 1 obesity due to exces s calories with body mass index (BMI) of 33.0 to 33.9 in adult 01/13/2020 07/11/2021 Last Assessment & Plan: Assessment: Body mass index is 33.95 kg/m . Post-operative state 10/22/2019 12/27/2020 Overview: H/A: asymptomatic carotid lesion s/p CEA 10/20, no shunt used Plan: Discharge today once meeting discharge criteria and drain is pulled Neuro: Pain controlled on PO regimen CV: Home anti-HTN regimen resumed, asa/plavix resumed; drain with 32cc out, will remove Resp: no difficulties breathing or swallowing, on room air FEN/GI: diet today, prn anti-emetics available : Voiding spontaneously without difficulties; home ABEL and ARB resumed Heme: F/u AM labs ID: no further need for abx Ppx: SQ[facility] Dispo: d/c home today once ANGY removed after staff approval, tolerating diet, ambulating w/o difficulties, voiding spontaneously Carotid artery stenosis 10/21/2019 07/12/19 Last Assessment & Plan: Assessment: s/p left endarterectomy 09/2019, following [facility], pending f/u US in 5 mos Acute medial meniscus tear of right knee 014 12/27/2020 documented as of this encounter (statuses as of 10/12/2021) [facility] History of Past illness Narrative* Problem Noted Date Resolved Date Prediabetes 01/13/2020 07/11/2021 Last Assessment & Plan: Assessment: no rx, A1c 6.9 01/07/2020 Class 1 obesity due to exces s calories with body mass index (BMI) of 33.0 to 33.9 in adult 01/13/2020 07/11/2021 Last Assessment & Plan: Assessment: Body mass index is 33.95 kg/m . Post-operative state 10/22/2019 12/27/2020 Overview: H/A: asymptomatic carotid lesion s/p CEA 10/20, no shunt used Plan: Discharge today once meeting discharge criteria and drain is pulled Neuro: Pain controlled on PO regimen CV: Home anti-HTN regimen resumed, asa/plavix resumed; drain with 32cc out, will remove Resp: no difficulties breathing or swallowing, on room air FEN/GI: diet today, prn anti-emetics available : Voiding spontaneously without difficulties; home ABEL and ARB resumed Heme: F/u AM labs ID: no further need for abx Ppx: [facility] Dispo: d/c home today once ANGY removed after staff approval, tolerating diet, ambulating w/o difficulties, voiding spontaneously Carotid artery stenosis 10/21/2019 07/12/19 Last Assessment & Plan: Assessment: s/p left endarterectomy 09/2019, following [facility], pending f/u US in 5 mos Acute medial meniscus tear of right knee 014 12/27/2020 documented as of this encounter (statuses as of 10/18/2021) [facility] History of Past illness Narrative* Problem Noted Date Resolved Date Prediabetes 01/13/2020 07/11/2021 Last Assessment & Plan: Assessment: no rx, A1c 6.9 01/07/2020 Class 1 obesity due to exces s calories with body mass index (BMI) of 33.0 to 33.9 in adult 01/13/2020 07/11/2021 Last Assessment & Plan: Assessment: Body mass index is 33.95 kg/m . Post-operative state 10/22/2019 12/27/2020 Overview: H/A: asymptomatic carotid lesion s/p CEA 10/20, no shunt used Plan: Discharge today once meeting discharge criteria and drain is pulled Neuro: Pain controlled on PO regimen CV: Home anti-HTN regimen resumed, asa/plavix resumed; drain with 32cc out, will remove Resp: no difficulties breathing or swallowing, on room air FEN/GI: diet today, prn anti-emetics available : Voiding spontaneously without difficulties; home ABEL and ARB resumed Heme: F/u AM labs ID: no further need for abx Ppx: [facility] Dispo: d/c home today once ANGY removed after staff approval, tolerating diet, ambulating w/o difficulties, voiding spontaneously Carotid artery stenosis 10/21/2019 07/12/19 Last Assessment & Plan: Assessment: s/p left endarterectomy 09/2019, following [facility], pending f/u US in 5 mos Acute medial meniscus tear of right knee 014 12/27/2020 documented as of this encounter (statuses as of 11/15/2021) [facility] History of Past illness Narrative* Problem Noted Date Resolved Date Prediabetes 01/13/2020 07/11/2021 Last Assessment & Plan: Assessment: no rx, A1c 6.9 01/07/2020 Class 1 obesity due to exces s calories with body mass index (BMI) of 33.0 to 33.9 in adult 01/13/2020 07/11/2021 Last Assessment & Plan: Assessment: Body mass index is 33.95 kg/m . Post-operative state 10/22/2019 12/27/2020 Overview: H/A: asymptomatic carotid lesion s/p CEA 10/20, no shunt used Plan: Discharge today once meeting discharge criteria and drain is pulled Neuro: Pain controlled on PO regimen CV: Home anti-HTN regimen resumed, asa/plavix resumed; drain with 32cc out, will remove Resp: no difficulties breathing or swallowing, on room air FEN/GI: diet today, prn anti-emetics available : Voiding spontaneously without difficulties; home ABEL and ARB resumed Heme: F/u AM labs ID: no further need for abx Ppx: [facility] Dispo: d/c home today once ANGY removed after staff approval, tolerating diet, ambulating w/o difficulties, voiding spontaneously Carotid artery stenosis 10/21/2019 07/12/19 Last Assessment & Plan: Assessment: s/p left endarterectomy 09/2019, following [facility], pending f/u US in 5 mos Acute medial meniscus tear of right knee 014 12/27/2020 documented as of this encounter (statuses as of 11/25/2021) [facility] History of Past illness Narrative* Problem Noted Date Resolved Date Prediabetes 01/13/2020 07/11/2021 Last Assessment & Plan: Assessment: no rx, A1c 6.9 01/07/2020 Class 1 obesity due to exces s calories with body mass index (BMI) of 33.0 to 33.9 in adult 01/13/2020 07/11/2021 Last Assessment & Plan: Assessment: Body mass index is 33.95 kg/m . Post-operative state 10/22/2019 12/27/2020 Overview: H/A: asymptomatic carotid lesion s/p CEA 10/20, no shunt used Plan: Discharge today once meeting discharge criteria and drain is pulled Neuro: Pain controlled on PO regimen CV: Home anti-HTN regimen resumed, asa/plavix resumed; drain with 32cc out, will remove Resp: no difficulties breathing or swallowing, on room air FEN/GI: diet today, prn anti-emetics available : Voiding spontaneously without difficulties; home ABEL and ARB resumed Heme: F/u AM labs ID: no further need for abx Ppx: [facility] Dispo: d/c home today once ANGY removed after staff approval, tolerating diet, ambulating w/o difficulties, voiding spontaneously Carotid artery stenosis 10/21/2019 07/12/19 Last Assessment & Plan: Assessment: s/p left endarterectomy 09/2019, following [facility], pending f/u US in 5 mos Acute medial meniscus tear of right knee 014 12/27/2020 documented as of this encounter (statuses as of 12/13/2021) [facility] History of Past illness Narrative* Problem Noted Date Resolved Date Prediabetes 01/13/2020 07/11/2021 Last Assessment & Plan: Assessment: no rx, A1c 6.9 01/07/2020 Class 1 obesity due to exces s calories with body mass index (BMI) of 33.0 to 33.9 in adult 01/13/2020 07/11/2021 Last Assessment & Plan: Assessment: Body mass index is 33.95 kg/m . Post-operative state 10/22/2019 12/27/2020 Overview: H/A: asymptomatic carotid lesion s/p CEA 10/20, no shunt used Plan: Discharge today once meeting discharge criteria and drain is pulled Neuro: Pain controlled on PO regimen CV: Home anti-HTN regimen resumed, asa/plavix resumed; drain with 32cc out, will remove Resp: no difficulties breathing or swallowing, on room air FEN/GI: diet today, prn anti-emetics available : Voiding spontaneously without difficulties; home ABEL and ARB resumed Heme: F/u AM labs ID: no further need for abx Ppx: SQ Dispo: d/c home today once ANGY removed after staff approval, tolerating diet, ambulating w/o difficulties, voiding spontaneously Carotid artery stenosis 10/21/2019 07/12/19 Last Assessment & Plan: Assessment: s/p left endarterectomy 09/2019, following [facility], pending f/u US in 5 mos Acute medial meniscus tear of right knee 014 12/27/2020 documented as of this encounter (statuses as of 12/14/2021) [facility] History of Past illness Narrative* Problem Noted Date Resolved Date Prediabetes 01/13/2020 07/11/2021 Last Assessment & Plan: Assessment: no rx, A1c 6.9 01/07/2020 Class 1 obesity due to exces s calories with body mass index (BMI) of 33.0 to 33.9 in adult 01/13/2020 07/11/2021 Last Assessment & Plan: Assessment: Body mass index is 33.95 kg/m . Post-operative state 10/22/2019 12/27/2020 Overview: H/A: asymptomatic carotid lesion s/p CEA 10/20, no shunt used Plan: Discharge today once meeting discharge criteria and drain is pulled Neuro: Pain controlled on PO regimen CV: Home anti-HTN regimen resumed, asa/plavix resumed; drain with 32cc out, will remove Resp: no difficulties breathing or swallowing, on room air FEN/GI: diet today, prn anti-emetics available : Voiding spontaneously without difficulties; home ABEL and ARB resumed Heme: F/u AM labs ID: no further need for abx Ppx: [facility] Dispo: d/c home today once ANGY removed after staff approval, tolerating diet, ambulating w/o difficulties, voiding spontaneously Carotid artery stenosis 10/21/2019 07/12/19 Last Assessment & Plan: Assessment: s/p left endarterectomy 09/2019, following [facility], pending f/u US in 5 mos Acute medial meniscus tear of right knee 014 12/27/2020 documented as of this encounter (statuses as of 01/06/2022) [facility] History of Past illness Narrative* Problem Noted Date Resolved Date Prediabetes 01/13/2020 07/11/2021 Last Assessment & Plan: Assessment: no rx, A1c 6.9 01/07/2020 Class 1 obesity due to exces s calories with body mass index (BMI) of 33.0 to 33.9 in adult 01/13/2020 07/11/2021 Last Assessment & Plan: Assessment: Body mass index is 33.95 kg/m . Post-operative state 10/22/2019 12/27/2020 Overview: H/A: asymptomatic carotid lesion s/p CEA 10/20, no shunt used Plan: Discharge today once meeting discharge criteria and drain is pulled Neuro: Pain controlled on PO regimen CV: Home anti-HTN regimen resumed, asa/plavix resumed; drain with 32cc out, will remove Resp: no difficulties breathing or swallowing, on room air FEN/GI: diet today, prn anti-emetics available : Voiding spontaneously without difficulties; home ABEL and ARB resumed Heme: F/u AM labs ID: no further need for abx Ppx: [facility] Dispo: d/c home today once ANGY removed after staff approval, tolerating diet, ambulating w/o difficulties, voiding spontaneously Carotid artery stenosis 10/21/2019 07/12/19 Last Assessment & Plan: Assessment: s/p left endarterectomy 09/2019, following [facility], pending f/u US in 5 mos Acute medial meniscus tear of right knee 014 12/27/2020 documented as of this encounter (statuses as of 01/18/2022) [facility] History of Past illness Narrative* Problem Noted Date Resolved Date Prediabetes 01/13/2020 07/11/2021 Last Assessment & Plan: Assessment: no rx, A1c 6.9 01/07/2020 Class 1 obesity due to exces s calories with body mass index (BMI) of 33.0 to 33.9 in adult 01/13/2020 07/11/2021 Last Assessment & Plan: Assessment: Body mass index is 33.95 kg/m . Post-operative state 10/22/2019 12/27/2020 Overview: H/A: asymptomatic carotid lesion s/p CEA 10/20, no shunt used Plan: Discharge today once meeting discharge criteria and drain is pulled Neuro: Pain controlled on PO regimen CV: Home anti-HTN regimen resumed, asa/plavix resumed; drain with 32cc out, will remove Resp: no difficulties breathing or swallowing, on room air FEN/GI: diet today, prn anti-emetics available : Voiding spontaneously without difficulties; home ABEL and ARB resumed Heme: F/u AM labs ID: no further need for abx Ppx: [facility] Dispo: d/c home today once ANGY removed after staff approval, tolerating diet, ambulating w/o difficulties, voiding spontaneously Carotid artery stenosis 10/21/2019 07/12/19 Last Assessment & Plan: Assessment: s/p left endarterectomy 09/2019, following [facility], pending f/u US in 5 mos Acute medial meniscus tear of right knee 014 12/27/2020 documented as of this encounter (statuses as of 01/19/2022) [facility] History of Past illness Narrative* Problem Noted Date Resolved Date Prediabetes 01/13/2020 07/11/2021 Last Assessment & Plan: Assessment: no rx, A1c 6.9 01/07/2020 Class 1 obesity due to exces s calories with body mass index (BMI) of 33.0 to 33.9 in adult 01/13/2020 07/11/2021 Last Assessment & Plan: Assessment: Body mass index is 33.95 kg/m . Post-operative state 10/22/2019 12/27/2020 Overview: H/A: asymptomatic carotid lesion s/p CEA 10/20, no shunt used Plan: Discharge today once meeting discharge criteria and drain is pulled Neuro: Pain controlled on PO regimen CV: Home anti-HTN regimen resumed, asa/plavix resumed; drain with 32cc out, will remove Resp: no difficulties breathing or swallowing, on room air FEN/GI: diet today, prn anti-emetics available : Voiding spontaneously without difficulties; home ABEL and ARB resumed Heme: F/u AM labs ID: no further need for abx Ppx: [facility] Dispo: d/c home today once ANGY removed after staff approval, tolerating diet, ambulating w/o difficulties, voiding spontaneously Carotid artery stenosis 10/21/2019 07/12/19 Last Assessment & Plan: Assessment: s/p left endarterectomy 09/2019, following [facility], pending f/u US in 5 mos Acute medial meniscus tear of right knee 014 12/27/2020 documented as of this encounter (statuses as of 02/07/2022) [facility] History of Past illness Narrative* Problem Noted Date Resolved Date Prediabetes 01/13/2020 07/11/2021 Last Assessment & Plan: Assessment: no rx, A1c 6.9 01/07/2020 Class 1 obesity due to exces s calories with body mass index (BMI) of 33.0 to 33.9 in adult 01/13/2020 07/11/2021 Last Assessment & Plan: Assessment: Body mass index is 33.95 kg/m . Post-operative state 10/22/2019 12/27/2020 Overview: H/A: asymptomatic carotid lesion s/p CEA 10/20, no shunt used Plan: Discharge today once meeting discharge criteria and drain is pulled Neuro: Pain controlled on PO regimen CV: Home anti-HTN regimen resumed, asa/plavix resumed; drain with 32cc out, will remove Resp: no difficulties breathing or swallowing, on room air FEN/GI: diet today, prn anti-emetics available : Voiding spontaneously without difficulties; home ABEL and ARB resumed Heme: F/u AM labs ID: no further need for abx Ppx: [facility] Dispo: d/c home today once ANGY removed after staff approval, tolerating diet, ambulating w/o difficulties, voiding spontaneously Carotid artery stenosis 10/21/2019 07/12/19 22 Last Assessment & Plan: Assessment: s/p left endarterectomy 09/2019, following [facility], pending f/u US in 5 mos Acute medial meniscus tear of right knee 014 12/27/2020 documented as of this encounter (statuses as of 02/24/2022) [facility] History of Past illness Narrative* Problem Noted Date Resolved Date Prediabetes 01/13/2020 07/11/2021 Last Assessment & Plan: Assessment: no rx, A1c 6.9 01/07/2020 Class 1 obesity due to exces s calories with body mass index (BMI) of 33.0 to 33.9 in adult 01/13/2020 07/11/2021 Last Assessment & Plan: Assessment: Body mass index is 33.95 kg/m . Post-operative state 10/22/2019 12/27/2020 Overview: H/A: asymptomatic carotid lesion s/p CEA 10/20, no shunt used Plan: Discharge today once meeting discharge criteria and drain is pulled Neuro: Pain controlled on PO regimen CV: Home anti-HTN regimen resumed, asa/plavix resumed; drain with 32cc out, will remove Resp: no difficulties breathing or swallowing, on room air FEN/GI: diet today, prn anti-emetics available : Voiding spontaneously without difficulties; home ABEL and ARB resumed Heme: F/u AM labs ID: no further need for abx Ppx: SQ[facility] Dispo: d/c home today once ANGY removed after staff approval, tolerating diet, ambulating w/o difficulties, voiding spontaneously Carotid artery stenosis 10/21/2019 07/12/19 Last Assessment & Plan: Assessment: s/p left endarterectomy 09/2019, following [facility], pending f/u US in 5 mos Acute medial meniscus tear of right knee 014 12/27/2020 documented as of this encounter (statuses as of 03/13/2022) [facility] History of Past illness Narrative* Problem Noted Date Resolved Date Prediabetes 01/13/2020 07/11/2021 Last Assessment & Plan: Assessment: no rx, A1c 6.9 01/07/2020 Class 1 obesity due to exces s calories with body mass index (BMI) of 33.0 to 33.9 in adult 01/13/2020 07/11/2021 Last Assessment & Plan: Assessment: Body mass index is 33.95 kg/m . Post-operative state 10/22/2019 12/27/2020 Overview: H/A: asymptomatic carotid lesion s/p CEA 10/20, no shunt used Plan: Discharge today once meeting discharge criteria and drain is pulled Neuro: Pain controlled on PO regimen CV: Home anti-HTN regimen resumed, asa/plavix resumed; drain with 32cc out, will remove Resp: no difficulties breathing or swallowing, on room air FEN/GI: diet today, prn anti-emetics available : Voiding spontaneously without difficulties; home ABEL and ARB resumed Heme: F/u AM labs ID: no further need for abx Ppx: SQ[facility] Dispo: d/c home today once ANGY removed after staff approval, tolerating diet, ambulating w/o difficulties, voiding spontaneously Carotid artery stenosis 10/21/2019 07/12/19 Last Assessment & Plan: Assessment: s/p left endarterectomy 09/2019, following [facility], pending f/u US in 5 mos Acute medial meniscus tear of right knee 014 12/27/2020 documented as of this encounter (statuses as of 03/27/2022) [facility] History of Past illness Narrative* Problem Noted Date Resolved Date Prediabetes 01/13/2020 07/11/2021 Last Assessment & Plan: Assessment: no rx, A1c 6.9 01/07/2020 Class 1 obesity due to exces s calories with body mass index (BMI) of 33.0 to 33.9 in adult 01/13/2020 07/11/2021 Last Assessment & Plan: Assessment: Body mass index is 33.95 kg/m . Post-operative state 10/22/2019 12/27/2020 Overview: H/A: asymptomatic carotid lesion s/p CEA 10/20, no shunt used Plan: Discharge today once meeting discharge criteria and drain is pulled Neuro: Pain controlled on PO regimen CV: Home anti-HTN regimen resumed, asa/plavix resumed; drain with 32cc out, will remove Resp: no difficulties breathing or swallowing, on room air FEN/GI: diet today, prn anti-emetics available : Voiding spontaneously without difficulties; home ABEL and ARB resumed Heme: F/u AM labs ID: no further need for abx Ppx: SQ[facility] Dispo: d/c home today once ANGY removed after staff approval, tolerating diet, ambulating w/o difficulties, voiding spontaneously Carotid artery stenosis 10/21/2019 07/12/19 Last Assessment & Plan: Assessment: s/p left endarterectomy 09/2019, following [facility], pending f/u US in 5 mos Acute medial meniscus tear of right knee 014 12/27/2020 documented as of this encounter (statuses as of 03/29/2022) [facility] History of Past illness Narrative* Problem Noted Date Resolved Date Prediabetes 01/13/2020 07/11/2021 Last Assessment & Plan: Assessment: no rx, A1c 6.9 01/07/2020 Class 1 obesity due to exces s calories with body mass index (BMI) of 33.0 to 33.9 in adult 01/13/2020 07/11/2021 Last Assessment & Plan: Assessment: Body mass index is 33.95 kg/m . Post-operative state 10/22/2019 12/27/2020 Overview: H/A: asymptomatic carotid lesion s/p CEA 10/20, no shunt used Plan: Discharge today once meeting discharge criteria and drain is pulled Neuro: Pain controlled on PO regimen CV: Home anti-HTN regimen resumed, asa/plavix resumed; drain with 32cc out, will remove Resp: no difficulties breathing or swallowing, on room air FEN/GI: diet today, prn anti-emetics available : Voiding spontaneously without difficulties; home ABEL and ARB resumed Heme: F/u AM labs ID: no further need for abx Ppx: [facility] Dispo: d/c home today once ANGY removed after staff approval, tolerating diet, ambulating w/o difficulties, voiding spontaneously Carotid artery stenosis 10/21/2019 07/12/19 Last Assessment & Plan: Assessment: s/p left endarterectomy 09/2019, following [facility], pending f/u US in 5 mos Acute medial meniscus tear of right knee 014 12/27/2020 documented as of this encounter (statuses as of 04/04/2022) [facility] History of Past illness Narrative* Problem Noted Date Resolved Date Prediabetes 01/13/2020 07/11/2021 Last Assessment & Plan: Assessment: no rx, A1c 6.9 01/07/2020 Class 1 obesity due to exces s calories with body mass index (BMI) of 33.0 to 33.9 in adult 01/13/2020 07/11/2021 Last Assessment & Plan: Assessment: Body mass index is 33.95 kg/m . Post-operative state 10/22/2019 12/27/2020 Overview: H/A: asymptomatic carotid lesion s/p CEA 10/20, no shunt used Plan: Discharge today once meeting discharge criteria and drain is pulled Neuro: Pain controlled on PO regimen CV: Home anti-HTN regimen resumed, asa/plavix resumed; drain with 32cc out, will remove Resp: no difficulties breathing or swallowing, on room air FEN/GI: diet today, prn anti-emetics available : Voiding spontaneously without difficulties; home ABEL and ARB resumed Heme: F/u AM labs ID: no further need for abx Ppx: [facility] Dispo: d/c home today once ANGY removed after staff approval, tolerating diet, ambulating w/o difficulties, voiding spontaneously Carotid artery stenosis 10/21/2019 07/12/19 Last Assessment & Plan: Assessment: s/p left endarterectomy 09/2019, following [facility], pending f/u US in 5 mos Acute medial meniscus tear of right knee 014 12/27/2020 documented as of this encounter (statuses as of 05/05/2022) [facility] History of Past illness Narrative* Problem Noted Date Resolved Date Prediabetes 01/13/2020 07/11/2021 Last Assessment & Plan: Assessment: no rx, A1c 6.9 01/07/2020 Class 1 obesity due to exces s calories with body mass index (BMI) of 33.0 to 33.9 in adult 01/13/2020 07/11/2021 Last Assessment & Plan: Assessment: Body mass index is 33.95 kg/m . Post-operative state 10/22/2019 12/27/2020 Overview: H/A: asymptomatic carotid lesion s/p CEA 10/20, no shunt used Plan: Discharge today once meeting discharge criteria and drain is pulled Neuro: Pain controlled on PO regimen CV: Home anti-HTN regimen resumed, asa/plavix resumed; drain with 32cc out, will remove Resp: no difficulties breathing or swallowing, on room air FEN/GI: diet today, prn anti-emetics available : Voiding spontaneously without difficulties; home ABEL and ARB resumed Heme: F/u AM labs ID: no further need for abx Ppx: [facility] Dispo: d/c home today once ANGY removed after staff approval, tolerating diet, ambulating w/o difficulties, voiding spontaneously Carotid artery stenosis 10/21/2019 07/12/19 Last Assessment & Plan: Assessment: s/p left endarterectomy 09/2019, following [facility], pending f/u US in 5 mos Acute medial meniscus tear of right knee 014 12/27/2020 documented as of this encounter (statuses as of 06/29/2022) [facility]2020 History of Past illness Narrative* Problem Noted Date Resolved Date Prediabetes 01/13/2020 07/11/2021 Last Assessment & Plan: Assessment: no rx, A1c 6.9 01/07/2020 Class 1 obesity due to exces s calories with body mass index (BMI) of 33.0 to 33.9 in adult 01/13/2020 07/11/2021 Last Assessment & Plan: Assessment: Body mass index is 33.95 kg/m . Post-operative state 10/22/2019 12/27/2020 Overview: H/A: asymptomatic carotid lesion s/p CEA 10/20, no shunt used Plan: Discharge today once meeting discharge criteria and drain is pulled Neuro: Pain controlled on PO regimen CV: Home anti-HTN regimen resumed, asa/plavix resumed; drain with 32cc out, will remove Resp: no difficulties breathing or swallowing, on room air FEN/GI: diet today, prn anti-emetics available : Voiding spontaneously without difficulties; home ABEL and ARB resumed Heme: F/u AM labs ID: no further need for abx Ppx: [facility] Dispo: d/c home today once ANGY removed after staff approval, tolerating diet, ambulating w/o difficulties, voiding spontaneously Carotid artery stenosis 10/21/2019 07/12/19 Last Assessment & Plan: Assessment: s/p left endarterectomy 09/2019, following [facility], pending f/u US in 5 mos Acute medial meniscus tear of right knee 014 12/27/2020 documented as of this encounter (statuses as of 07/13/2022) [facility] History of Past illness Narrative* Problem Noted Date Resolved Date Prediabetes 01/13/2020 07/11/2021 Last Assessment & Plan: Assessment: no rx, A1c 6.9 01/07/2020 Class 1 obesity due to exces s calories with body mass index (BMI) of 33.0 to 33.9 in adult 01/13/2020 07/11/2021 Last Assessment & Plan: Assessment: Body mass index is 33.95 kg/m . Post-operative state 10/22/2019 12/27/2020 Overview: H/A: asymptomatic carotid lesion s/p CEA 10/20, no shunt used Plan: Discharge today once meeting discharge criteria and drain is pulled Neuro: Pain controlled on PO regimen CV: Home anti-HTN regimen resumed, asa/plavix resumed; drain with 32cc out, will remove Resp: no difficulties breathing or swallowing, on room air FEN/GI: diet today, prn anti-emetics available : Voiding spontaneously without difficulties; home ABEL and ARB resumed Heme: F/u AM labs ID: no further need for abx Ppx: [facility] Dispo: d/c home today once ANGY removed after staff approval, tolerating diet, ambulating w/o difficulties, voiding spontaneously Carotid artery stenosis 10/21/2019 07/12/19 Last Assessment & Plan: Assessment: s/p left endarterectomy 09/2019, following [facility], pending f/u US in 5 mos Acute medial meniscus tear of right knee 014 12/27/2020 documented as of this encounter (statuses as of 07/13/2022) [facility] History of Past illness Narrative* Problem Noted Date Resolved Date Prediabetes 01/13/2020 07/11/2021 Last Assessment & Plan: Assessment: no rx, A1c 6.9 01/07/2020 Class 1 obesity due to exces s calories with body mass index (BMI) of 33.0 to 33.9 in adult 01/13/2020 07/11/2021 Last Assessment & Plan: Assessment: Body mass index is 33.95 kg/m . Post-operative state 10/22/2019 12/27/2020 Overview: H/A: asymptomatic carotid lesion s/p CEA 10/20, no shunt used Plan: Discharge today once meeting discharge criteria and drain is pulled Neuro: Pain controlled on PO regimen CV: Home anti-HTN regimen resumed, asa/plavix resumed; drain with 32cc out, will remove Resp: no difficulties breathing or swallowing, on room air FEN/GI: diet today, prn anti-emetics available : Voiding spontaneously without difficulties; home ABEL and ARB resumed Heme: F/u AM labs ID: no further need for abx Ppx: [facility] Dispo: d/c home today once ANGY removed after staff approval, tolerating diet, ambulating w/o difficulties, voiding spontaneously Carotid artery stenosis 10/21/2019 07/12/19 Last Assessment & Plan: Assessment: s/p left endarterectomy 09/2019, following [facility], pending f/u US in 5 mos Acute medial meniscus tear of right knee 014 12/27/2020 documented as of this encounter (statuses as of 07/14/2022) [facility] History of Past illness Narrative* Problem Noted Date Resolved Date Prediabetes 01/13/2020 07/11/2021 Last Assessment & Plan: Assessment: no rx, A1c 6.9 01/07/2020 Class 1 obesity due to exces s calories with body mass index (BMI) of 33.0 to 33.9 in adult 01/13/2020 07/11/2021 Last Assessment & Plan: Assessment: Body mass index is 33.95 kg/m . Post-operative state 10/22/2019 12/27/2020 Overview: H/A: asymptomatic carotid lesion s/p CEA 10/20, no shunt used Plan: Discharge today once meeting discharge criteria and drain is pulled Neuro: Pain controlled on PO regimen CV: Home anti-HTN regimen resumed, asa/plavix resumed; drain with 32cc out, will remove Resp: no difficulties breathing or swallowing, on room air FEN/GI: diet today, prn anti-emetics available : Voiding spontaneously without difficulties; home ABEL and ARB resumed Heme: F/u AM labs ID: no further need for abx Ppx: [facility] Dispo: d/c home today once ANGY removed after staff approval, tolerating diet, ambulating w/o difficulties, voiding spontaneously Carotid artery stenosis 10/21/2019 07/12/19 Last Assessment & Plan: Assessment: s/p left endarterectomy 09/2019, following [facility], pending f/u US in 5 mos Acute medial meniscus tear of right knee 014 12/27/2020 documented as of this encounter (statuses as of 08/22/2022) [facility] History of Past illness Narrative* Problem Noted Date Resolved Date Prediabetes 01/13/2020 07/11/2021 Last Assessment & Plan: Assessment: no rx, A1c 6.9 01/07/2020 Class 1 obesity due to exces s calories with body mass index (BMI) of 33.0 to 33.9 in adult 01/13/2020 07/11/2021 Last Assessment & Plan: Assessment: Body mass index is 33.95 kg/m . Post-operative state 10/22/2019 12/27/2020 Overview: H/A: asymptomatic carotid lesion s/p CEA 10/20, no shunt used Plan: Discharge today once meeting discharge criteria and drain is pulled Neuro: Pain controlled on PO regimen CV: Home anti-HTN regimen resumed, asa/plavix resumed; drain with 32cc out, will remove Resp: no difficulties breathing or swallowing, on room air FEN/GI: diet today, prn anti-emetics available : Voiding spontaneously without difficulties; home ABEL and ARB resumed Heme: F/u AM labs ID: no further need for abx Ppx: [facility] Dispo: d/c home today once ANGY removed after staff approval, tolerating diet, ambulating w/o difficulties, voiding spontaneously Carotid artery stenosis 10/21/2019 07/12/19 Last Assessment & Plan: Assessment: s/p left endarterectomy 09/2019, following [facility], pending f/u US in 5 mos Acute medial meniscus tear of right knee 014 12/27/2020 documented as of this encounter (statuses as of 09/12/2022) [facility] History of Past illness Narrative* Problem Noted Date Resolved Date Prediabetes 01/13/2020 07/11/2021 Last Assessment & Plan: Assessment: no rx, A1c 6.9 01/07/2020 Class 1 obesity due to exces s calories with body mass index (BMI) of 33.0 to 33.9 in adult 01/13/2020 07/11/2021 Last Assessment & Plan: Assessment: Body mass index is 33.95 kg/m . Post-operative state 10/22/2019 12/27/2020 Overview: H/A: asymptomatic carotid lesion s/p CEA 10/20, no shunt used Plan: Discharge today once meeting discharge criteria and drain is pulled Neuro: Pain controlled on PO regimen CV: Home anti-HTN regimen resumed, asa/plavix resumed; drain with 32cc out, will remove Resp: no difficulties breathing or swallowing, on room air FEN/GI: diet today, prn anti-emetics available : Voiding spontaneously without difficulties; home ABEL and ARB resumed Heme: F/u AM labs ID: no further need for abx Ppx: [facility] Dispo: d/c home today once ANGY removed after staff approval, tolerating diet, ambulating w/o difficulties, voiding spontaneously Carotid artery stenosis 10/21/2019 07/12/19 Last Assessment & Plan: Assessment: s/p left endarterectomy 09/2019, following [facility], pending f/u US in 5 mos Acute medial meniscus tear of right knee 014 12/27/2020 documented as of this encounter (statuses as of 09/13/2022) [facility] History of Past illness Narrative* Problem Noted Date Diagnosed Date Resolved Date Prediabetes 01/13/2020 07/11/2021 Last Assessment & Plan: Assessment: no rx, A1c 6.9 01/07/2020 Class 1 obesity due to exces s calories with body mass index (BMI) of 33.0 to 33.9 in adult 01/13/2020 07/11/2021 Last Assessment & Plan: Assessment: Body mass index is 33.95 kg/m . Post-operative state 10/22/2019 Overview: H/A: asymptomatic carotid lesion s/p CEA 10/20, no shunt used Plan: Discharge today once meeting discharge criteria and drain is pulled Neuro: Pain controlled on PO regimen CV: Home anti-HTN regimen resumed, asa/plavix resumed; drain with 32cc out, will remove Resp: no difficulties breathing or swallowing, on room air FEN/GI: diet today, prn anti-emetics available : Voiding spontaneously without difficulties; home ABEL and ARB resumed Heme: F/u AM labs ID: no further need for abx Ppx: [facility] Dispo: d/c home today once ANGY removed after staff approval, tolerating diet, ambulating w/o difficulties, voiding spontaneously Carotid artery stenosis 10/21/201906/24 Last Assessment & Plan: Assessment: s/p left endarterectomy 09/2019, following [facility], pending f/u US in 5 mos Acute medial meniscus tear of right knee 10/23/2013 12/27/2020 documented as of this encounter (statuses as of 10/03/2022) [facility] History of Past illness Narrative* Problem Noted Date Diagnosed Date Resolved Date Prediabetes 01/13/2020 07/11/2021 Last Assessment & Plan: Assessment: no rx, A1c 6.9 01/07/2020 Class 1 obesity due to exces s calories with body mass index (BMI) of 33.0 to 33.9 in adult 01/13/2020 07/11/2021 Last Assessment & Plan: Assessment: Body mass index is 33.95 kg/m . Post-operative state 10/22/2019 Overview: H/A: asymptomatic carotid lesion s/p CEA 10/20, no shunt used Plan: Discharge today once meeting discharge criteria and drain is pulled Neuro: Pain controlled on PO regimen CV: Home anti-HTN regimen resumed, asa/plavix resumed; drain with 32cc out, will remove Resp: no difficulties breathing or swallowing, on room air FEN/GI: diet today, prn anti-emetics available : Voiding spontaneously without difficulties; home ABEL and ARB resumed Heme: F/u AM labs ID: no further need for abx Ppx: [facility] Dispo: d/c home today once ANGY removed after staff approval, tolerating diet, ambulating w/o difficulties, voiding spontaneously Carotid artery stenosis 10/21/201906/24 Last Assessment & Plan: Assessment: s/p left endarterectomy 09/2019, following [facility], pending f/u US in 5 mos Acute medial meniscus tear of right knee 10/23/2013 12/27/2020 documented as of this encounter (statuses as of 10/11/2022) [facility] History of Past illness Narrative* Problem Noted Date Diagnosed Date Resolved Date Prediabetes 01/13/2020 07/11/2021 Last Assessment & Plan: Assessment: no rx, A1c 6.9 01/07/2020 Class 1 obesity due to exces s calories with body mass index (BMI) of 33.0 to 33.9 in adult 01/13/2020 07/11/2021 Last Assessment & Plan: Assessment: Body mass index is 33.95 kg/m . Post-operative state 10/22/2019 021 Overview: H/A: asymptomatic carotid lesion s/p CEA 10/20, no shunt used Plan: Discharge today once meeting discharge criteria and drain is pulled Neuro: Pain controlled on PO regimen CV: Home anti-HTN regimen resumed, asa/plavix resumed; drain with 32cc out, will remove Resp: no difficulties breathing or swallowing, on room air FEN/GI: diet today, prn anti-emetics available : Voiding spontaneously without difficulties; home ABEL and ARB resumed Heme: F/u AM labs ID: no further need for abx Ppx: [facility] Dispo: d/c home today once ANGY removed after staff approval, tolerating diet, ambulating w/o difficulties, voiding spontaneously Carotid artery stenosis 10/21/201906/24 Last Assessment & Plan: Assessment: s/p left endarterectomy 09/2019, following [facility], pending f/u US in 5 mos Acute medial meniscus tear of right knee 10/23/2013 12/27/2020 documented as of this encounter (statuses as of 11/09/2022) [facility] History of Past illness Narrative* Problem Noted Date Diagnosed Date Resolved Date Prediabetes 01/13/2020 07/11/2021 Last Assessment & Plan: Assessment: no rx, A1c 6.9 01/07/2020 Class 1 obesity due to exces s calories with body mass index (BMI) of 33.0 to 33.9 in adult 01/13/2020 07/11/2021 Last Assessment & Plan: Assessment: Body mass index is 33.95 kg/m . Post-operative state 10/22/2019 021 Overview: H/A: asymptomatic carotid lesion s/p CEA 10/20, no shunt used Plan: Discharge today once meeting discharge criteria and drain is pulled Neuro: Pain controlled on PO regimen CV: Home anti-HTN regimen resumed, asa/plavix resumed; drain with 32cc out, will remove Resp: no difficulties breathing or swallowing, on room air FEN/GI: diet today, prn anti-emetics available : Voiding spontaneously without difficulties; home ABEL and ARB resumed Heme: F/u AM labs ID: no further need for abx Ppx: [facility] Dispo: d/c home today once ANGY removed after staff approval, tolerating diet, ambulating w/o difficulties, voiding spontaneously Carotid artery stenosis 10/21/201906/24 Last Assessment & Plan: Assessment: s/p left endarterectomy 09/2019, following [facility], pending f/u US in 5 mos Acute medial meniscus tear of right knee 10/23/2013 12/27/2020 documented as of this encounter (statuses as of 11/21/2022) [facility] History of Past illness Narrative* Problem Noted Date Diagnosed Date Resolved Date Prediabetes 01/13/2020 07/11/2021 Last Assessment & Plan: Assessment: no rx, A1c 6.9 01/07/2020 Class 1 obesity due to exces s calories with body mass index (BMI) of 33.0 to 33.9 in adult 01/13/2020 07/11/2021 Last Assessment & Plan: Assessment: Body mass index is 33.95 kg/m . Post-operative state 10/22/2019 021 Overview: H/A: asymptomatic carotid lesion s/p CEA 10/20, no shunt used Plan: Discharge today once meeting discharge criteria and drain is pulled Neuro: Pain controlled on PO regimen CV: Home anti-HTN regimen resumed, asa/plavix resumed; drain with 32cc out, will remove Resp: no difficulties breathing or swallowing, on room air FEN/GI: diet today, prn anti-emetics available : Voiding spontaneously without difficulties; home ABEL and ARB resumed Heme: F/u AM labs ID: no further need for abx Ppx: [facility] Dispo: d/c home today once ANGY removed after staff approval, tolerating diet, ambulating w/o difficulties, voiding spontaneously Carotid artery stenosis 10/21/201906/24 Last Assessment & Plan: Assessment: s/p left endarterectomy 09/2019, following [facility], pending f/u US in 5 mos Acute medial meniscus tear of right knee 10/23/2013 12/27/2020 documented as of this encounter (statuses as of 12/06/2022) [facility] History of Past illness Narrative* Problem Noted Date Diagnosed Date Resolved Date Prediabetes 01/13/2020 07/11/2021 Last Assessment & Plan: Assessment: no rx, A1c 6.9 01/07/2020 Class 1 obesity due to exces s calories with body mass index (BMI) of 33.0 to 33.9 in adult 01/13/2020 07/11/2021 Last Assessment & Plan: Assessment: Body mass index is 33.95 kg/m . Post-operative state 10/22/2019 Overview: H/A: asymptomatic carotid lesion s/p CEA 10/20, no shunt used Plan: Discharge today once meeting discharge criteria and drain is pulled Neuro: Pain controlled on PO regimen CV: Home anti-HTN regimen resumed, asa/plavix resumed; drain with 32cc out, will remove Resp: no difficulties breathing or swallowing, on room air FEN/GI: diet today, prn anti-emetics available : Voiding spontaneously without difficulties; home ABEL and ARB resumed Heme: F/u AM labs ID: no further need for abx Ppx: [facility] Dispo: d/c home today once ANGY removed after staff approval, tolerating diet, ambulating w/o difficulties, voiding spontaneously Carotid artery stenosis 10/21/201906/24 Last Assessment & Plan: Assessment: s/p left endarterectomy 09/2019, following [facility], pending f/u US in 5 mos Acute medial meniscus tear of right knee 10/23/2013 12/27/2020 documented as of this encounter (statuses as of 01/02/2023) [facility] History of Past illness Narrative* Problem Noted Date Diagnosed Date Resolved Date Prediabetes 01/13/2020 07/11/2021 Last Assessment & Plan: Assessment: no rx, A1c 6.9 01/07/2020 Class 1 obesity due to exces s calories with body mass index (BMI) of 33.0 to 33.9 in adult 01/13/2020 07/11/2021 Last Assessment & Plan: Assessment: Body mass index is 33.95 kg/m . Post-operative state 10/22/2019 Overview: H/A: asymptomatic carotid lesion s/p CEA 10/20, no shunt used Plan: Discharge today once meeting discharge criteria and drain is pulled Neuro: Pain controlled on PO regimen CV: Home anti-HTN regimen resumed, asa/plavix resumed; drain with 32cc out, will remove Resp: no difficulties breathing or swallowing, on room air FEN/GI: diet today, prn anti-emetics available : Voiding spontaneously without difficulties; home ABEL and ARB resumed Heme: F/u AM labs ID: no further need for abx Ppx: [facility] Dispo: d/c home today once ANGY removed after staff approval, tolerating diet, ambulating w/o difficulties, voiding spontaneously Carotid artery stenosis 10/21/201906/24 Last Assessment & Plan: Assessment: s/p left endarterectomy 09/2019, following [facility], pending f/u US in 5 mos Acute medial meniscus tear of right knee 10/23/2013 12/27/2020 documented as of this encounter (statuses as of 01/04/2023) [facility] History of Past illness Narrative* Problem Noted Date Diagnosed Date Resolved Date Prediabetes 01/13/2020 07/11/2021 Last Assessment & Plan: Assessment: no rx, A1c 6.9 01/07/2020 Class 1 obesity due to exces s calories with body mass index (BMI) of 33.0 to 33.9 in adult 01/13/2020 07/11/2021 Last Assessment & Plan: Assessment: Body mass index is 33.95 kg/m . Post-operative state 10/22/2019 021 Overview: H/A: asymptomatic carotid lesion s/p CEA 10/20, no shunt used Plan: Discharge today once meeting discharge criteria and drain is pulled Neuro: Pain controlled on PO regimen CV: Home anti-HTN regimen resumed, asa/plavix resumed; drain with 32cc out, will remove Resp: no difficulties breathing or swallowing, on room air FEN/GI: diet today, prn anti-emetics available : Voiding spontaneously without difficulties; home ABEL and ARB resumed Heme: F/u AM labs ID: no further need for abx Ppx: [facility] Dispo: d/c home today once ANGY removed after staff approval, tolerating diet, ambulating w/o difficulties, voiding spontaneously Carotid artery stenosis 10/21/201906/24 Last Assessment & Plan: Assessment: s/p left endarterectomy 09/2019, following [facility], pending f/u US in 5 mos Acute medial meniscus tear of right knee 10/23/2013 12/27/2020 documented as of this encounter (statuses as of 01/08/2023) [facility] History of Past illness Narrative* Problem Noted Date Diagnosed Date Resolved Date Prediabetes 01/13/2020 07/11/2021 Last Assessment & Plan: Assessment: no rx, A1c 6.9 01/07/2020 Class 1 obesity due to exces s calories with body mass index (BMI) of 33.0 to 33.9 in adult 01/13/2020 07/11/2021 Last Assessment & Plan: Assessment: Body mass index is 33.95 kg/m . Post-operative state 10/22/2019 021 Overview: H/A: asymptomatic carotid lesion s/p CEA 10/20, no shunt used Plan: Discharge today once meeting discharge criteria and drain is pulled Neuro: Pain controlled on PO regimen CV: Home anti-HTN regimen resumed, asa/plavix resumed; drain with 32cc out, will remove Resp: no difficulties breathing or swallowing, on room air FEN/GI: diet today, prn anti-emetics available : Voiding spontaneously without difficulties; home ABEL and ARB resumed Heme: F/u AM labs ID: no further need for abx Ppx: [facility] Dispo: d/c home today once ANGY removed after staff approval, tolerating diet, ambulating w/o difficulties, voiding spontaneously Carotid artery stenosis 10/21/201906/24 Last Assessment & Plan: Assessment: s/p left endarterectomy 09/2019, following [facility], pending f/u US in 5 mos Acute medial meniscus tear of right knee 10/23/2013 12/27/2020 documented as of this encounter (statuses as of 01/09/2023) [facility] History of Past illness Narrative* Problem Noted Date Diagnosed Date Resolved Date Prediabetes 01/13/2020 07/11/2021 Last Assessment & Plan: Assessment: no rx, A1c 6.9 01/07/2020 Class 1 obesity due to exces s calories with body mass index (BMI) of 33.0 to 33.9 in adult 01/13/2020 07/11/2021 Last Assessment & Plan: Assessment: Body mass index is 33.95 kg/m . Post-operative state 10/22/2019 021 Overview: H/A: asymptomatic carotid lesion s/p CEA 10/20, no shunt used Plan: Discharge today once meeting discharge criteria and drain is pulled Neuro: Pain controlled on PO regimen CV: Home anti-HTN regimen resumed, asa/plavix resumed; drain with 32cc out, will remove Resp: no difficulties breathing or swallowing, on room air FEN/GI: diet today, prn anti-emetics available : Voiding spontaneously without difficulties; home ABEL and ARB resumed Heme: F/u AM labs ID: no further need for abx Ppx: [facility] Dispo: d/c home today once ANGY removed after staff approval, tolerating diet, ambulating w/o difficulties, voiding spontaneously Carotid artery stenosis 10/21/201906/24 Last Assessment & Plan: Assessment: s/p left endarterectomy 09/2019, following [facility], pending f/u US in 5 mos Acute medial meniscus tear of right knee 10/23/2013 12/27/2020 documented as of this encounter (statuses as of 01/15/2023) [facility] History of Past illness Narrative* Problem Noted Date Diagnosed Date Resolved Date Prediabetes 01/13/2020 07/11/2021 Last Assessment & Plan: Assessment: no rx, A1c 6.9 01/07/2020 Class 1 obesity due to exces s calories with body mass index (BMI) of 33.0 to 33.9 in adult 01/13/2020 07/11/2021 Last Assessment & Plan: Assessment: Body mass index is 33.95 kg/m . Post-operative state 10/22/2019 Overview: H/A: asymptomatic carotid lesion s/p CEA 10/20, no shunt used Plan: Discharge today once meeting discharge criteria and drain is pulled Neuro: Pain controlled on PO regimen CV: Home anti-HTN regimen resumed, asa/plavix resumed; drain with 32cc out, will remove Resp: no difficulties breathing or swallowing, on room air FEN/GI: diet today, prn anti-emetics available : Voiding spontaneously without difficulties; home ABEL and ARB resumed Heme: F/u AM labs ID: no further need for abx Ppx: [facility] Dispo: d/c home today once ANGY removed after staff approval, tolerating diet, ambulating w/o difficulties, voiding spontaneously Carotid artery stenosis 10/21/201906/24 Last Assessment & Plan: Assessment: s/p left endarterectomy 09/2019, following [facility], pending f/u US in 5 mos Acute medial meniscus tear of right knee 10/23/2013 12/27/2020 documented as of this encounter (statuses as of 01/28/2023) [facility] History of Past illness Narrative* Problem Noted Date Diagnosed Date Resolved Date Prediabetes 01/13/2020 07/11/2021 Last Assessment & Plan: Assessment: no rx, A1c 6.9 01/07/2020 Class 1 obesity due to exces s calories with body mass index (BMI) of 33.0 to 33.9 in adult 01/13/2020 07/11/2021 Last Assessment & Plan: Assessment: Body mass index is 33.95 kg/m . Post-operative state 10/22/2019 Overview: H/A: asymptomatic carotid lesion s/p CEA 10/20, no shunt used Plan: Discharge today once meeting discharge criteria and drain is pulled Neuro: Pain controlled on PO regimen CV: Home anti-HTN regimen resumed, asa/plavix resumed; drain with 32cc out, will remove Resp: no difficulties breathing or swallowing, on room air FEN/GI: diet today, prn anti-emetics available : Voiding spontaneously without difficulties; home ABEL and ARB resumed Heme: F/u AM labs ID: no further need for abx Ppx: [facility] Dispo: d/c home today once ANGY removed after staff approval, tolerating diet, ambulating w/o difficulties, voiding spontaneously Carotid artery stenosis 10/21/201906/24 Last Assessment & Plan: Assessment: s/p left endarterectomy 09/2019, following [facility], pending f/u US in 5 mos Acute medial meniscus tear of right knee 10/23/2013 12/27/2020 documented as of this encounter (statuses as of 02/01/2023) [facility] History of Past illness Narrative* Problem Noted Date Diagnosed Date Resolved Date Prediabetes 01/13/2020 07/11/2021 Last Assessment & Plan: Assessment: no rx, A1c 6.9 01/07/2020 Class 1 obesity due to exces s calories with body mass index (BMI) of 33.0 to 33.9 in adult 01/13/2020 07/11/2021 Last Assessment & Plan: Assessment: Body mass index is 33.95 kg/m . Post-operative state 10/22/2019 021 Overview: H/A: asymptomatic carotid lesion s/p CEA 10/20, no shunt used Plan: Discharge today once meeting discharge criteria and drain is pulled Neuro: Pain controlled on PO regimen CV: Home anti-HTN regimen resumed, asa/plavix resumed; drain with 32cc out, will remove Resp: no difficulties breathing or swallowing, on room air FEN/GI: diet today, prn anti-emetics available : Voiding spontaneously without difficulties; home ABEL and ARB resumed Heme: F/u AM labs ID: no further need for abx Ppx: SQ[facility] Dispo: d/c home today once ANGY removed after staff approval, tolerating diet, ambulating w/o difficulties, voiding spontaneously Carotid artery stenosis 10/21/201906/24 Last Assessment & Plan: Assessment: s/p left endarterectomy 09/2019, following [facility], pending f/u US in 5 mos Acute medial meniscus tear of right knee 10/23/2013 12/27/2020 documented as of this encounter (statuses as of 02/02/2023) [facility] History of Past illness Narrative* Problem Noted Date Diagnosed Date Resolved Date Prediabetes 01/13/2020 07/11/2021 Last Assessment & Plan: Assessment: no rx, A1c 6.9 01/07/2020 Class 1 obesity due to exces s calories with body mass index (BMI) of 33.0 to 33.9 in adult 01/13/2020 07/11/2021 Last Assessment & Plan: Assessment: Body mass index is 33.95 kg/m . Post-operative state 10/22/2019 021 Overview: H/A: asymptomatic carotid lesion s/p CEA 10/20, no shunt used Plan: Discharge today once meeting discharge criteria and drain is pulled Neuro: Pain controlled on PO regimen CV: Home anti-HTN regimen resumed, asa/plavix resumed; drain with 32cc out, will remove Resp: no difficulties breathing or swallowing, on room air FEN/GI: diet today, prn anti-emetics available : Voiding spontaneously without difficulties; home ABEL and ARB resumed Heme: F/u AM labs ID: no further need for abx Ppx: SQ[facility] Dispo: d/c home today once ANGY removed after staff approval, tolerating diet, ambulating w/o difficulties, voiding spontaneously Carotid artery stenosis 10/21/201906/24 Last Assessment & Plan: Assessment: s/p left endarterectomy 09/2019, following [facility], pending f/u US in 5 mos Acute medial meniscus tear of right knee 10/23/2013 12/27/2020 documented as of this encounter (statuses as of 02/06/2023) [facility] History of Past illness Narrative* Problem Noted Date Diagnosed Date Resolved Date Prediabetes 01/13/2020 07/11/2021 Last Assessment & Plan: Assessment: no rx, A1c 6.9 01/07/2020 Class 1 obesity due to exces s calories with body mass index (BMI) of 33.0 to 33.9 in adult 01/13/2020 07/11/2021 Last Assessment & Plan: Assessment: Body mass index is 33.95 kg/m . Post-operative state 10/22/2019 021 Overview: H/A: asymptomatic carotid lesion s/p CEA 10/20, no shunt used Plan: Discharge today once meeting discharge criteria and drain is pulled Neuro: Pain controlled on PO regimen CV: Home anti-HTN regimen resumed, asa/plavix resumed; drain with 32cc out, will remove Resp: no difficulties breathing or swallowing, on room air FEN/GI: diet today, prn anti-emetics available : Voiding spontaneously without difficulties; home ABEL and ARB resumed Heme: F/u AM labs ID: no further need for abx Ppx: SQ[facility] Dispo: d/c home today once ANGY removed after staff approval, tolerating diet, ambulating w/o difficulties, voiding spontaneously Carotid artery stenosis 10/21/201906/24 Last Assessment & Plan: Assessment: s/p left endarterectomy 09/2019, following [facility], pending f/u US in 5 mos Acute medial meniscus tear of right knee 10/23/2013 12/27/2020 documented as of this encounter (statuses as of 02/21/2023) [facility] History of Past illness Narrative* Problem Noted Date Diagnosed Date Resolved Date Prediabetes 01/13/2020 07/11/2021 Last Assessment & Plan: Assessment: no rx, A1c 6.9 01/07/2020 Class 1 obesity due to exces s calories with body mass index (BMI) of 33.0 to 33.9 in adult 01/13/2020 07/11/2021 Last Assessment & Plan: Assessment: Body mass index is 33.95 kg/m . Post-operative state 10/22/2019 Overview: H/A: asymptomatic carotid lesion s/p CEA 10/20, no shunt used Plan: Discharge today once meeting discharge criteria and drain is pulled Neuro: Pain controlled on PO regimen CV: Home anti-HTN regimen resumed, asa/plavix resumed; drain with 32cc out, will remove Resp: no difficulties breathing or swallowing, on room air FEN/GI: diet today, prn anti-emetics available : Voiding spontaneously without difficulties; home ABEL and ARB resumed Heme: F/u AM labs ID: no further need for abx Ppx: SQ[facility] Dispo: d/c home today once ANGY removed after staff approval, tolerating diet, ambulating w/o difficulties, voiding spontaneously Carotid artery stenosis 10/21/201906/24 Last Assessment & Plan: Assessment: s/p left endarterectomy 09/2019, following [facility], pending f/u US in 5 mos Acute medial meniscus tear of right knee 10/23/2013 12/27/2020 documented as of this encounter (statuses as of 02/28/2023) [facility] History of Past illness Narrative* Problem Noted Date Diagnosed Date Resolved Date Prediabetes 01/13/2020 07/11/2021 Last Assessment & Plan: Assessment: no rx, A1c 6.9 01/07/2020 Class 1 obesity due to exces s calories with body mass index (BMI) of 33.0 to 33.9 in adult 01/13/2020 07/11/2021 Last Assessment & Plan: Assessment: Body mass index is 33.95 kg/m . Post-operative state 10/22/2019 Overview: H/A: asymptomatic carotid lesion s/p CEA 10/20, no shunt used Plan: Discharge today once meeting discharge criteria and drain is pulled Neuro: Pain controlled on PO regimen CV: Home anti-HTN regimen resumed, asa/plavix resumed; drain with 32cc out, will remove Resp: no difficulties breathing or swallowing, on room air FEN/GI: diet today, prn anti-emetics available : Voiding spontaneously without difficulties; home ABEL and ARB resumed Heme: F/u AM labs ID: no further need for abx Ppx: [facility] Dispo: d/c home today once ANGY removed after staff approval, tolerating diet, ambulating w/o difficulties, voiding spontaneously Carotid artery stenosis 10/21/201906/24 Last Assessment & Plan: Assessment: s/p left endarterectomy 09/2019, following [facility], pending f/u US in 5 mos Acute medial meniscus tear of right knee 10/23/2013 12/27/2020 documented as of this encounter (statuses as of 03/01/2023) [facility] History of Past illness Narrative* Problem Noted Date Diagnosed Date Resolved Date Prediabetes 01/13/2020 07/11/2021 Last Assessment & Plan: Assessment: no rx, A1c 6.9 01/07/2020 Class 1 obesity due to exces s calories with body mass index (BMI) of 33.0 to 33.9 in adult 01/13/2020 07/11/2021 Last Assessment & Plan: Assessment: Body mass index is 33.95 kg/m . Post-operative state 10/22/2019 021 Overview: H/A: asymptomatic carotid lesion s/p CEA 10/20, no shunt used Plan: Discharge today once meeting discharge criteria and drain is pulled Neuro: Pain controlled on PO regimen CV: Home anti-HTN regimen resumed, asa/plavix resumed; drain with 32cc out, will remove Resp: no difficulties breathing or swallowing, on room air FEN/GI: diet today, prn anti-emetics available : Voiding spontaneously without difficulties; home ABEL and ARB resumed Heme: F/u AM labs ID: no further need for abx Ppx: SQ[facility] Dispo: d/c home today once ANGY removed after staff approval, tolerating diet, ambulating w/o difficulties, voiding spontaneously Carotid artery stenosis 10/21/201906/24 Last Assessment & Plan: Assessment: s/p left endarterectomy 09/2019, following [facility], pending f/u US in 5 mos Acute medial meniscus tear of right knee 10/23/2013 12/27/2020 documented as of this encounter (statuses as of 03/07/2023) [facility] History of Past illness Narrative* Problem Noted Date Diagnosed Date Resolved Date Prediabetes 01/13/2020 07/11/2021 Last Assessment & Plan: Assessment: no rx, A1c 6.9 01/07/2020 Class 1 obesity due to exces s calories with body mass index (BMI) of 33.0 to 33.9 in adult 01/13/2020 07/11/2021 Last Assessment & Plan: Assessment: Body mass index is 33.95 kg/m . Post-operative state 10/22/2019 021 Overview: H/A: asymptomatic carotid lesion s/p CEA 10/20, no shunt used Plan: Discharge today once meeting discharge criteria and drain is pulled Neuro: Pain controlled on PO regimen CV: Home anti-HTN regimen resumed, asa/plavix resumed; drain with 32cc out, will remove Resp: no difficulties breathing or swallowing, on room air FEN/GI: diet today, prn anti-emetics available : Voiding spontaneously without difficulties; home ABEL and ARB resumed Heme: F/u AM labs ID: no further need for abx Ppx: SQ[facility] Dispo: d/c home today once ANGY removed after staff approval, tolerating diet, ambulating w/o difficulties, voiding spontaneously Carotid artery stenosis 10/21/201906/24 Last Assessment & Plan: Assessment: s/p left endarterectomy 09/2019, following [facility], pending f/u US in 5 mos Acute medial meniscus tear of right knee 10/23/2013 12/27/2020 documented as of this encounter (statuses as of 03/12/2023) [facility] History of Past illness Narrative* Problem Noted Date Diagnosed Date Resolved Date Prediabetes 01/13/2020 07/11/2021 Last Assessment & Plan: Assessment: no rx, A1c 6.9 01/07/2020 Class 1 obesity due to exces s calories with body mass index (BMI) of 33.0 to 33.9 in adult 01/13/2020 07/11/2021 Last Assessment & Plan: Assessment: Body mass index is 33.95 kg/m . Post-operative state 10/22/2019 021 Overview: H/A: asymptomatic carotid lesion s/p CEA 10/20, no shunt used Plan: Discharge today once meeting discharge criteria and drain is pulled Neuro: Pain controlled on PO regimen CV: Home anti-HTN regimen resumed, asa/plavix resumed; drain with 32cc out, will remove Resp: no difficulties breathing or swallowing, on room air FEN/GI: diet today, prn anti-emetics available : Voiding spontaneously without difficulties; home ABEL and ARB resumed Heme: F/u AM labs ID: no further need for abx Ppx: SQ[facility] Dispo: d/c home today once ANGY removed after staff approval, tolerating diet, ambulating w/o difficulties, voiding spontaneously Carotid artery stenosis 10/21/201906/24 Last Assessment & Plan: Assessment: s/p left endarterectomy 09/2019, following [facility], pending f/u US in 5 mos Acute medial meniscus tear of right knee 10/23/2013 12/27/2020 documented as of this encounter (statuses as of 04/27/2023) [facility] Overactive bladder Hypertonicity of bladder Bilateral carotid artery stenosis- Primary Occlusion and stenosis of carotid artery without mention of cerebral infarction Preop examination Preoperative examination, unspecified Stenosis of left carotid artery Occlusion and stenosis of carotid artery without mention of cerebral infarction Preop testing Preoperative examination, unspecified Stenosis of left carotid artery Occlusion and stenosis of carotid artery without mention of cerebral infarction Preop testing Preoperative examination, unspecified [facility] Carotid stenosis, asymptomatic, bilateral- Primary Examination of participant in clinical trial Stenosis of left carotid artery Occlusion and stenosis of carotid artery without mention of cerebral infarction Preop testing Preoperative examination, unspecified [facility] Diagnosis Research study patient- Primary Stenosis of left carotid artery Occlusion and stenosis of carotid artery without mention of cerebral infarction Preop testing Preoperative examination, unspecified [facility] Diagnosis Bilateral carotid artery stenosis- Primary Occlusion and stenosis of carotid artery without mention of cerebral infarction Preop examination Preoperative examination, unspecified Stenosis of left carotid artery Occlusion and stenosis of carotid artery without mention of cerebral infarction Preop testing Preoperative examination, unspecified Stenosis of left carotid artery Occlusion and stenosis of carotid artery without mention of cerebral infarction Preop testing Preoperative examination, unspecified [facility] Research study [facility]- Primary [facility] Research study [facility]- Primary [facility] Diagnosis Hospital discharge follow-up- Primary Other follow-up examination Thickening of tendon Other disorders of synovium, tendon, and bursa Carotid stenosis, left Occlusion and stenosis of carotid artery without mention of cerebral infarction Type 2 diabetes mellitus with stage 3a chronic kidney disease, without long-term current use of insulin (HCC) Coronary artery disease involving [place] coronary artery of [place] heart, unspecified whether angina present Essential hypertension, benign [facility] Diagnosis Bilateral carotid artery stenosis- Primary Occlusion and stenosis of carotid artery without mention of cerebral infarction [facility]* Diagnosis Stage 3a chronic kidney disease (HCC)- Primary [facility]* Diagnosis Acute bilateral low back pain without sciatica- Primary [facility]* Diagnosis Research study patient- Primary [facility] Diagnosis Bilateral carotid artery stenosis- Primary Occlusion and stenosis of carotid artery without mention of cerebral infarction [facility] Diagnosis Carotid stenosis, asymptomatic, bilateral- Primary Examination of participant in clinical trial [facility]* Diagnosis Research study patient- Primary documented in this encounter [facility]* Diagnosis Bilateral carotid artery stenosis- Primary Occlusion and stenosis of carotid artery without mention of cerebral infarction documented in this encounter 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 Rash Rash and other nonspecific skin eruption [facility]* Diagnosis Rash- Primary Rash and other nonspecific skin eruption [facility]* Diagnosis Essential hypertension, benign [facility] Diagnosis Arthritis of hip- Primary Unspecified arthropathy, pelvic region and thigh [facility] Diagnosis Pain in left hip Pain in joint, pelvic region and thigh [facility] Diagnosis Essential hypertension, benign- Primary Hyperlipidemia, mixed Mixed hyperlipidemia Type 2 diabetes mellitus with stage 3a chronic kidney disease, without long-term current use of insulin (HCC) Acquired hypothyroidism Unspecified hypothyroidism Overactive bladder Hypertonicity of bladder Nerve pain Neuralgia, neuritis, and radiculitis, unspecified Coronary artery disease involving [place] coronary artery of [place] heart, unspecified whether angina present Benign neoplasm of cerebral meninges (HCC) Benign neoplasm of cerebral meninges documented in this encounter [facility] note* Diagnosis Primary osteoarthritis of left hip- Primary Primary localized osteoarthrosis, pelvic region and thigh documented in this encounter [facility] for referral (narrative)* Diagnostic Procedure Only (Routine) - Authorized Specialty Diagnoses / Procedures Referred By Contac t Referred To Contact [facility] Diagnoses Encounter for screening mammogram for malignant neoplasm of breast Procedures KIM SCREENING SCREENING MAMMOGRAPHY BI 2-VIEW BREAST INC CAD Alejandra Valle MD [address] [place] [address] [facility] [address] [place] [id number] Referral ID Status Reason Start Date Expiration Date Visits Requested Visits Authorized [id number] Authorized Auto-Generat ed Referral 07/13/2021 08/12/2022 1 1 [facility] for referral (narrative)* Outpatient Procedure (Routine) - Pending Review Specialty Diagnoses / Procedures Referred By Wanda leos Referred To Contact [facility] [facility] Diagnoses Carotid stenosis, asymptomatic, bilateral Examination of participant in clinical trial Procedures US CAROTID ARTERIES JASBIR V[facility] LAB DUPLEX SCAN EXTRACRANIAL ART COMPL BI STUDY Diomedes Davey MD [address] [place] [address] [facility] [address] [place] [address] Referral ID Status Reason Start Date Expiration Date Visits Requested Visits Authorized [id number] Pending Review Auto-Generat ed Referral 07/12/2022 02/22/2023 1 1 [facility] for referral (narrative)* Diagnostic Procedure Only (Routine) - Closed Specialty Diagnoses / Procedures Referred By Wanda leos Referred To Contact XR IMAGING Diagnoses Pain in left hip Procedures XR HIP GENERAL 3V PELV/AP/LAT LEFT RADEX HIP UNILATERAL WITH PELVIS 2-3 VIEWS Eros Jay PA-C [address] [address] Xr Imaging [id number] Referral ID Status Reason Start Date Expiration Date V isits Requested Visits Authorized [id number] Closed Auto-Generate d Referral 12/22/2022 01/21/2024 1 1 [facility] for visit Narrative* Diagnostic Procedure Only (Routine) - Closed Specialty Diagnoses / Procedures Referred By Wanda leos Referred To Contact [facility] Diagnoses Visit for screening mammogram Procedures KMI SCREENING SCREENING MAMMOGRAPHY BI 2-VIEW BREAST INC Alejandra Cordon MD [address] [place] [address] [facility] [address] [place] [address] Referral ID Status Reason Start Date Expiration Date V isits Requested Visits Authorized [id number] Closed Auto-Generate d Referral 07/27/2022 08/24/2023 1 1 [facility] Advance Directives No Advanced Directives Records FoundDocuments on File Type Date Recorded Patient Buckle Stapler Expl anation Advance Directive(s) 04/16/2017 11:17 AM Latest Code Status on File Code Status Date Activated Date Inactivated Comments Full Code 01/19/2020 5:04 PM 07/19/2021 5:23 AM Full Code 01/15/2020 2:00 PM 01/17/2020 8:35 PM Full Code Order Discussed With: Discussion Not M edically Appropriate Documents on File Type Date Recorded Patient Buckle Stapler Expl anation Advance Directive(s) Advance Directive(s) 01/08/2020 11:12 AM Advance Directive(s) 10/21/2019 7:32 AM Advance Directive(s) 10/08/2019 1:16 PM Advance Directive(s) 04/16/2017 11:17 AM Latest Code Status on File Code Status Date Activated Date Inactivated Comments Full Code 01/19/2020 5:04 PM Full Code 01/15/2020 2:00 PM 01/17/2020 8:35 PM Documents on File Type Date Recorded Patient Buckle Stapler Expl anation Advance Directive(s) Advance Directive(s) 01/08/2020 11:12 AM Advance Directive(s) 10/21/2019 7:32 AM Advance Directive(s) 10/08/2019 1:16 PM Advance Directive(s) 04/16/2017 11:17 AM Latest Code Status on File Code Status Date Activated Date Inactivated Comments Full Code 01/19/2020 5:04 PM Documents on File Type Date Recorded Patient Buckle Stapler Expl anation Advance Directive(s) Advance Directive(s) 07/18/2021 1:59 PM Advance Directive(s) 01/08/2020 11:12 AM Advance Directive(s) 10/21/2019 7:32 AM Advance Directive(s) 10/08/2019 1:16 PM Advance Directive(s) 04/16/2017 11:17 AM Documents on File Type Date Recorded Patient Buckle Stapler Expl anation Advance Directive(s) 04/16/2017 11:17 AM Latest Code Status on File Code Status Date Activated Date Inactivated Comments Full Code 01/19/2020 5:04 PM 07/19/2021 5:23 AM Latest Code Status on File Code Status Date Activated Date Inactivated Comments Full Code 01/19/2020 5:04 PM 07/19/2021 5:23 AM Code Status History Code Status Date Activated Date Inactivated Comments Full Code 01/15/2020 2:00 PM 01/17/2020 8:35 PM Question Answer Comments Full Code Order Discussed With: Discussion Not Medically Appropriate Latest Code Status on File Code Status Date Activated Date Inactivated Comments Full Code 01/19/2020 5:04 PM 07/19/2021 5:23 AM Code Status History Code Status Date Activated Date Inactivated Comments Full Code 01/15/2020 2:00 PM 01/17/2020 8:35 PM Question Answer Comments Full Code Order Discussed With: Discussion Not Medically Appropriate Health Concerns Infection Onset Date Last Indicated Resolved Time COVID-19 Rule-Out 07/18/2021 07/18/2021 Reason for Referral Specialty Diagnoses / Procedures Referred By Contac t Referred To Contact Alejandra Valle MD [address] [place] [address] Referral ID Status Reason Start Date Expiration Date V isits Requested Visits Authorized [id number] Authorized 02/20/2022 03/22/2023 1 1 Specialty Diagnoses / Procedures Referred By Contac t Referred To Contact [facility] Diagnoses Primary osteoarthritis of left hip Procedures CONSULT TO PHYSICAL THERAPY PHYSICAL THERAPY EVALUATION HIGH COMPLEX 45 MINS Eros Jay PA-C [address] [place] [address] [facility] [address] [place] [address] Referral ID Status Reason Start Date Expiration Date Visits Requested Visits Authorized [id number] Pending Review Auto-Generat ed Referral 05/09/2023 03/05/2024 1 1 Specialty Diagnoses / Procedures Referred By Contac t Referred To Contact XR IMAGING Diagnoses Primary osteoarthritis of left hip Procedures XR HIP GENERAL 3V PELV/AP/LAT LEFT RADEX HIP UNILATERAL WITH PELVIS 2-3 VIEWS Eros Jay PA-C [address] [place] [address] [place] [address] Referral ID Status Reason Start Date Expiration Date Visits Requested Visits Authorized [id number] Pending Review Auto-Generat ed Referral 04/04/2024 1 1 Specialty Diagnoses / Procedures Referred By Contac t Referred To Contact Anesthesiology Diagnoses Primary osteoarthritis of left hip Procedures CONSULT TO ANESTHESIOLOGY OFFICE/OUTPATIENT NEW HIGH MDM 60-74 MINUTES Eros Jay PA-C [address] [place] [address] Referral ID Status Reason Start Date Expiration Date Visits Requested Visits Authorized [id number] Pending Review PCP Requested Referral 3 03/05/2024 1 1 Specialty Diagnoses / Procedures Referred By Contac t Referred To Contact [facility] Diagnoses Primary osteoarthritis of left hip Procedures ECG COMPLETE ECG ROUTINE ECG W/LEAST 12 LDS W/I&R Eros Jay PA-C [address] [place] [address] [facility] [address] [place] [address] Referral ID Status Reason Start Date Expiration Date Visits Requested Visits Authorized [id number] Pending Review Auto-Generat ed Referral 3 03/05/2024 1 1 Summary Purpose Family History No Family History Records Found Additional Source Comments Source Comments (unrecognize d section and content) In the event this informatio n is protected by the Federal Confidentiality of Alcohol and Drug Abuse Patient Records regulations: The Federal rules restrict any use of the information to criminally investigate or prosecute any alcohol or drug abuse patient.[facility] event this information is protected by the Federal Confidentiality of Alcohol and Drug Abuse Patient Records regulations: The Federal rules restrict any use of the information to criminally investigate or prosecute any alcohol or drug abuse patient.[facility] HospitalIn the event this information is protected by the Federal Confidentiality of Alcohol and Drug Abuse Patient Records regulations: The Federal rules restrict any use of the information to criminally investigate or prosecute any alcohol or drug abuse patient.[facility] HospitalIn the event this information is protected by the Federal Confidentiality of Alcohol and Drug Abuse Patient Records regulations: The Federal rules restrict any use of the information to criminally investigate or prosecute any alcohol or drug abuse patient.[facility] HospitalIn the event this information is protected by the Federal Confidentiality of Alcohol and Drug Abuse Patient Records regulations: The Federal rules restrict any use of the information to criminally investigate or prosecute any alcohol or drug abuse patient.[facility] HospitalIn the event this information is protected by the Federal Confidentiality of Alcohol and Drug Abuse Patient Records regulations: The Federal rules restrict any use of the information to criminally investigate or prosecute any alcohol or drug abuse patient.[facility] HospitalIn the event this information is protected by the Federal Confidentiality of Alcohol and Drug Abuse Patient Records regulations: The Federal rules restrict any use of the information to criminally investigate or prosecute any alcohol or drug abuse patient.[facility] HospitalIn the event this information is protected by the Federal Confidentiality of Alcohol and Drug Abuse Patient Records regulations: The Federal rules restrict any use of the information to criminally investigate or prosecute any alcohol or drug abuse patient.[facility] HospitalIn the event this information is protected by the Federal Confidentiality of Alcohol and Drug Abuse Patient Records regulations: The Federal rules restrict any use of the information to criminally investigate or prosecute any alcohol or drug abuse patient.[facility] HospitalIn the event this information is protected by the Federal Confidentiality of Alcohol and Drug Abuse Patient Records regulations: The Federal rules restrict any use of the information to criminally investigate or prosecute any alcohol or drug abuse patient.[facility] HospitalIn the event this information is protected by the Federal Confidentiality of Alcohol and Drug Abuse Patient Records regulations: The Federal rules restrict any use of the information to criminally investigate or prosecute any alcohol or drug abuse patient.[facility] HospitalIn the event this information is protected by the Federal Confidentiality of Alcohol and Drug Abuse Patient Records regulations: The Federal rules restrict any use of the information to criminally investigate or prosecute any alcohol or drug abuse patient.[facility] HospitalIn the event this information is protected by the Federal Confidentiality of Alcohol and Drug Abuse Patient Records regulations: The Federal rules restrict any use of the information to criminally investigate or prosecute any alcohol or drug abuse patient.[facility] HospitalIn the event this information is protected by the Federal Confidentiality of Alcohol and Drug Abuse Patient Records regulations: The Federal rules restrict any use of the information to criminally investigate or prosecute any alcohol or drug abuse patient.[facility] HospitalIn the event this information is protected by the Federal Confidentiality of Alcohol and Drug Abuse Patient Records regulations: The Federal rules restrict any use of the information to criminally investigate or prosecute any alcohol or drug abuse patient.[facility] HospitalIn the event this information is protected by the Federal Confidentiality of Alcohol and Drug Abuse Patient Records regulations: The Federal rules restrict any use of the information to criminally investigate or prosecute any alcohol or drug abuse patient.[facility] HospitalIn the event this information is protected by the Federal Confidentiality of Alcohol and Drug Abuse Patient Records regulations: The Federal rules restrict any use of the information to criminally investigate or prosecute any alcohol or drug abuse patient.[facility] HospitalIn the event this information is protected by the Federal Confidentiality of Alcohol and Drug Abuse Patient Records regulations: The Federal rules restrict any use of the information to criminally investigate or prosecute any alcohol or drug abuse patient.[facility] HospitalIn the event this information is protected by the Federal Confidentiality of Alcohol and Drug Abuse Patient Records regulations: The Federal rules restrict any use of the information to criminally investigate or prosecute any alcohol or drug abuse patient.[facility] HospitalIn the event this information is protected by the Federal Confidentiality of Alcohol and Drug Abuse Patient Records regulations: The Federal rules restrict any use of the information to criminally investigate or prosecute any alcohol or drug abuse patient.[facility] HospitalIn the event this information is protected by the Federal Confidentiality of Alcohol and Drug Abuse Patient Records regulations: The Federal rules restrict any use of the information to criminally investigate or prosecute any alcohol or drug abuse patient.[facility] HospitalIn the event this information is protected by the Federal Confidentiality of Alcohol and Drug Abuse Patient Records regulations: The Federal rules restrict any use of the information to criminally investigate or prosecute any alcohol or drug abuse patient.[facility] HospitalIn the event this information is protected by the Federal Confidentiality of Alcohol and Drug Abuse Patient Records regulations: The Federal rules restrict any use of the information to criminally investigate or prosecute any alcohol or drug abuse patient.[facility] HospitalIn the event this information is protected by the Federal Confidentiality of Alcohol and Drug Abuse Patient Records regulations: The Federal rules restrict any use of the information to criminally investigate or prosecute any alcohol or drug abuse patient.[facility] HospitalIn the event this information is protected by the Federal Confidentiality of Alcohol and Drug Abuse Patient Records regulations: The Federal rules restrict any use of the information to criminally investigate or prosecute any alcohol or drug abuse patient.[facility] HospitalIn the event this information is protected by the Federal Confidentiality of Alcohol and Drug Abuse Patient Records regulations: The Federal rules restrict any use of the information to criminally investigate or prosecute any alcohol or drug abuse patient.[facility] HospitalIn the event this information is protected by the Federal Confidentiality of Alcohol and Drug Abuse Patient Records regulations: The Federal rules restrict any use of the information to criminally investigate or prosecute any alcohol or drug abuse patient.[facility] HospitalIn the event this information is protected by the Federal Confidentiality of Alcohol and Drug Abuse Patient Records regulations: The Federal rules restrict any use of the information to criminally investigate or prosecute any alcohol or drug abuse patient.[facility] HospitalIn the event this information is protected by the Federal Confidentiality of Alcohol and Drug Abuse Patient Records regulations: The Federal rules restrict any use of the information to criminally investigate or prosecute any alcohol or drug abuse patient.[facility] HospitalIn the event this information is protected by the Federal Confidentiality of Alcohol and Drug Abuse Patient Records regulations: The Federal rules restrict any use of the information to criminally investigate or prosecute any alcohol or drug abuse patient.[facility] HospitalIn the event this information is protected by the Federal Confidentiality of Alcohol and Drug Abuse Patient Records regulations: The Federal rules restrict any use of the information to criminally investigate or prosecute any alcohol or drug abuse patient.[facility] HospitalIn the event this information is protected by the Federal Confidentiality of Alcohol and Drug Abuse Patient Records regulations: The Federal rules restrict any use of the information to criminally investigate or prosecute any alcohol or drug abuse patient.[facility] HospitalIn the event this information is protected by the Federal Confidentiality of Alcohol and Drug Abuse Patient Records regulations: The Federal rules restrict any use of the information to criminally investigate or prosecute any alcohol or drug abuse patient.[facility] HospitalIn the event this information is protected by the Federal Confidentiality of Alcohol and Drug Abuse Patient Records regulations: The Federal rules restrict any use of the information to criminally investigate or prosecute any alcohol or drug abuse patient.[facility] HospitalIn the event this information is protected by the Federal Confidentiality of Alcohol and Drug Abuse Patient Records regulations: The Federal rules restrict any use of the information to criminally investigate or prosecute any alcohol or drug abuse patient.[facility] HospitalIn the event this information is protected by the Federal Confidentiality of Alcohol and Drug Abuse Patient Records regulations: The Federal rules restrict any use of the information to criminally investigate or prosecute any alcohol or drug abuse patient.[facility] HospitalIn the event this information is protected by the Federal Confidentiality of Alcohol and Drug Abuse Patient Records regulations: The Federal rules restrict any use of the information to criminally investigate or prosecute any alcohol or drug abuse patient.[facility] HospitalIn the event this information is protected by the Federal Confidentiality of Alcohol and Drug Abuse Patient Records regulations: The Federal rules restrict any use of the information to criminally investigate or prosecute any alcohol or drug abuse patient.[facility] HospitalIn the event this information is protected by the Federal Confidentiality of Alcohol and Drug Abuse Patient Records regulations: The Federal rules restrict any use of the information to criminally investigate or prosecute any alcohol or drug abuse patient.[facility] HospitalIn the event this information is protected by the Federal Confidentiality of Alcohol and Drug Abuse Patient Records regulations: The Federal rules restrict any use of the information to criminally investigate or prosecute any alcohol or drug abuse patient.[facility] HospitalIn the event this information is protected by the Federal Confidentiality of Alcohol and Drug Abuse Patient Records regulations: The Federal rules restrict any use of the information to criminally investigate or prosecute any alcohol or drug abuse patient.[facility] HospitalIn the event this information is protected by the Federal Confidentiality of Alcohol and Drug Abuse Patient Records regulations: The Federal rules restrict any use of the information to criminally investigate or prosecute any alcohol or drug abuse patient.[facility] HospitalIn the event this information is protected by the Federal Confidentiality of Alcohol and Drug Abuse Patient Records regulations: The Federal rules restrict any use of the information to criminally investigate or prosecute any alcohol or drug abuse patient.[facility] HospitalIn the event this information is protected by the Federal Confidentiality of Alcohol and Drug Abuse Patient Records regulations: The Federal rules restrict any use of the information to criminally investigate or prosecute any alcohol or drug abuse patient.[facility] HospitalIn the event this information is protected by the Federal Confidentiality of Alcohol and Drug Abuse Patient Records regulations: The Federal rules restrict any use of the information to criminally investigate or prosecute any alcohol or drug abuse patient.[facility] HospitalIn the event this information is protected by the Federal Confidentiality of Alcohol and Drug Abuse Patient Records regulations: The Federal rules restrict any use of the information to criminally investigate or prosecute any alcohol or drug abuse patient.[facility] HospitalIn the event this information is protected by the Federal Confidentiality of Alcohol and Drug Abuse Patient Records regulations: The Federal rules restrict any use of the information to criminally investigate or prosecute any alcohol or drug abuse patient.[facility] HospitalIn the event this information is protected by the Federal Confidentiality of Alcohol and Drug Abuse Patient Records regulations: The Federal rules restrict any use of the information to criminally investigate or prosecute any alcohol or drug abuse patient.[facility] HospitalIn the event this information is protected by the Federal Confidentiality of Alcohol and Drug Abuse Patient Records regulations: The Federal rules restrict any use of the information to criminally investigate or prosecute any alcohol or drug abuse patient.[facility] HospitalIn the event this information is protected by the Federal Confidentiality of Alcohol and Drug Abuse Patient Records regulations: The Federal rules restrict any use of the information to criminally investigate or prosecute any alcohol or drug abuse patient.[facility] HospitalIn the event this information is protected by the Federal Confidentiality of Alcohol and Drug Abuse Patient Records regulations: The Federal rules restrict any use of the information to criminally investigate or prosecute any alcohol or drug abuse patient.[facility] HospitalIn the event this information is protected by the Federal Confidentiality of Alcohol and Drug Abuse Patient Records regulations: The Federal rules restrict any use of the information to criminally investigate or prosecute any alcohol or drug abuse patient.[facility] HospitalIn the event this information is protected by the Federal Confidentiality of Alcohol and Drug Abuse Patient Records regulations: The Federal rules restrict any use of the information to criminally investigate or prosecute any alcohol or drug abuse patient.[facility] HospitalIn the event this information is protected by the Federal Confidentiality of Alcohol and Drug Abuse Patient Records regulations: The Federal rules restrict any use of the information to criminally investigate or prosecute any alcohol or drug abuse patient.[facility] HospitalIn the event this information is protected by the Federal Confidentiality of Alcohol and Drug Abuse Patient Records regulations: The Federal rules restrict any use of the information to criminally investigate or prosecute any alcohol or drug abuse patient.[facility] HospitalIn the event this information is protected by the Federal Confidentiality of Alcohol and Drug Abuse Patient Records regulations: The Federal rules restrict any use of the information to criminally investigate or prosecute any alcohol or drug abuse patient.[facility] HospitalIn the event this information is protected by the Federal Confidentiality of Alcohol and Drug Abuse Patient Records regulations: The Federal rules restrict any use of the information to criminally investigate or prosecute any alcohol or drug abuse patient.[facility] Reason for Visit (unrecogniz ed section and content) Specialty Diagnoses / Procedures Referred By Wanda t Referred To Contact ADMITTING Diagnoses Stenosis of left carotid artery Preop testing Procedures TCAT IV STENT CRV CRTD ART EMBOLIC PROTECJ PERC TRANSCATH PLACEMENT INTRAVASCULAR STENT(S) CERV CAROTID ARTERY INCLUDING ANGIOPLASTY WHEN PERFORMED AND RAD S&I W/DISTAL EMBOLIC PROTECTION [facility] [address] [place] [address] Referral ID Status Reason Start Date Expiration Date Visits Re quested Visits Authorized [id number] 1 Reason Comments 6 Month Exam Reason Comments Refill Request Reason Comments Rx issue; not rec'd at pharmacy Reason Comments Research IRB 21-849; baseline visit Reason Comments Pre-Op Exam Reason Comments Research IRB 21-849 C-Dileep ns; index procedure Reason Onset Date Comments Transition Of Care 07/21/2021 TCM Hospital Discharge 07/20 Reason Comments Surgical Followup Reason Onset Date Comments Population Health Navigation Outreach 08/02/2021 [employer] Reason Comments Post Op Reason Onset Date Comments Community Monitoring Outreach 10/11/2021 In take #1 Reason Onset Date Comments Community Monitoring Outreach 10/18/2021 In take #3 Reason Onset Date Comments Community Monitoring Outreach 11/15/2021 CD M Telephonic Follow Up Reason Comments Back Pain Pt reported lower ba ck pain rated 10, x4 days. Reason Onset Date Comments Community Monitoring Outreach 12/13/2021 CD M Telephonic Reason Comments Appointment Reason Onset Date Comments Community Monitoring Outreach 12/14/2021 CD M Telephonic Reason Onset Date Comments Population Health Navigation Outreach 01/06/2022 [employer] Care Gaps Reason Comments Established Patient Reason Onset Date Comments Community Monitoring Outreach 02/07/2022 CD M Follow Up Reason Onset Date Comments Refill Request 03/11/2022 Reason Onset Date Comments Refill Request 03/21/2022 Reason Comments Medication Authorization Reason Onset Date Comments Community Monitoring Outreach 04/04/2022 CD M Reason Onset Date Comments community monitoring outreach 05/05/2022 CD M monthly check - in. Reason Onset Date Comments Refill Request 06/28/2022 Reason Onset Date Comments CDM 07/13/2022 Telephonic outre ach Reason Comments Rash X this AM, face and arms Reason Onset Date Comments Community Monitoring Outreach 09/13/2022 Te lephonic Outreach CDM Home Monitoring Reason Comments Rash all over x 09/06 usin g kenalog cream, dx with shingles on 09/09 Reason Onset Date Comments Community Monitoring Outreach 10/11/2022 Te lephonic Outreach CDM Home Monitoring Reason Onset Date Comments Community Monitoring Outreach 11/08/2022 Te lephonic Outreach CDM Home Monitoring Reason Onset Date Comments Refill Request 11/20/2022 Reason Onset Date Comments Community Monitoring Outreach 12/06/2022 Te lephonic Outreach CDM Home Monitoring Reason Onset Date Comments Refill Request 01/01/2023 Reason Onset Date Comments Community Monitoring Outreach 01/04/2023 Te lephonic Outreach CDM Home Monitoring Reason Comments Pain Established Patient Reason Comments Radio Gen A21 Specialty Diagnoses / Procedures Referred By Contac t Referred To Contact XR IMAGING Diagnoses Pain in left hip Procedures XR HIP GENERAL 3V PELV/AP/LAT LEFT RADEX HIP UNILATERAL WITH PELVIS 2-3 VIEWS Eros Jay, PA-C [address] [place] [address] [place] [address] Referral ID Status Reason Start Date Expiration Date V isits Requested Visits Authorized [id number] Closed Auto-Generate d Referral 12/22/2022 01/21/2024 1 1 Reason Comments F/U 6 Month Reason Onset Date Comments Community Monitoring Outreach 01/31/2023 Te lephonic Outreach CDM Home Monitoring Reason Onset Date Comments Community Monitoring Outreach 02/01/2023 2n d attempt Telephonic Outreach CDM Home Monitoring Reason Comments Medication Request Patient Update Reason Onset Date Comments Refill Request 02/21/2023 Reason Onset Date Comments Refill Request 02/28/2023 Reason Onset Date Comments Community Monitoring Outreach 03/01/2023 Te lephonic Outreach CDM Home Monitoring Reason Onset Date Comments Refill Request 03/10/2023 Reason Comments Home Care Confirmation call Care Teams (unrecognized sec tion and content) Registered Veterinary Technician Relationship Specialty Start Date End Date Alejandra Valle MD [address] [place] [address] PCP - General 08/26/08 Dixie Shin MD [address] [place] [address] Home Care Physician Orthopedics 01/16/20 Dixie Shin MD [address] [facility] [place] [address] Referring Orthopedics 01/16/20 Cecelia Pavon, PT [address] [place] [address] [facility] Post Acute Care 01/18/20 Registered Veterinary Technician Relationship Specialty Start Date End Date Alejandra Valle MD [address] [place] [address] PCP - General 08/26/08 Dixie Shin MD [address] [place] [address] Home Care Physician Orthopedics 01/16/20 Dixie Shin MD [address] [facility] [place] [address] Referring Orthopedics 01/16/20 Cecelia Pavon, PT [address] [place] [address] [facility] Post Acute Care 01/18/20 Registered Veterinary Technician Relationship Specialty Start Date End Date Alejandra Valle MD [address] [place] [address] PCP - General 08/26/08 Dixie Shin MD [address] [facility] [place] [address] Home Care Physician Orthopedics 01/16/20 Dixie Shin MD [address] [facility] [place] [address] Referring Orthopedics 01/16/20 Cecelia Pavon, PT [address] [place] [address] [facility] Post Acute [facility] 01/18/20 Registered Veterinary Technician Relationship Specialty Start Date End Date Alejandra Valle MD [address] [place] [address] PCP - General 08/26/08 Dixie Shin MD [address] [place] [address] Home Care Physician Orthopedics 01/16/20 Dixie Shin MD [address] [place] [address] Referring Orthopedics 01/16/20 Cecelia Pavon, PT [address] [place] [address] [facility] Post Acute [facility] 01/18/20 Registered Veterinary Technician Relationship Specialty Start Date End Date Alejandra Valle MD [address] [place] [address] PCP - General 08/26/08 Dixie Shin MD [address] [place] [address] Home Care Physician Orthopedics 01/16/20 Dixie Shin MD [address] [facility] [place] [address] Referring Orthopedics 01/16/20 Cecelia Pavon, PT [address] [place] [address] [facility] Post Acute [facility] 01/18/20 Registered Veterinary Technician Relationship Specialty Start Date End Date Alejandra Valle MD [address] [place] [address] PCP - General 08/26/08 Dixie Shin MD [address] [place] [address] Home Care Physician Orthopedics 01/16/20 Dixie Shin MD [address] [place] [address] Referring Orthopedics 01/16/20 Cecelia Pavon, PT [address] [place] [address] [facility] Post Acute [facility] 01/18/20 Registered Veterinary Technician Relationship Specialty Start Date End Date Alejandra Valle MD [address] [place] [address] PCP - General 08/26/08 Dixie Shin MD [address] [place] [address] Home Care Physician Orthopedics 01/16/20 Dixie Shin MD [address] [place] [address] Referring Orthopedics 01/16/20 Cecelia Pavon, PT [address] [place] [address] [facility] Post Acute [facility] 01/18/20 Registered Veterinary Technician Relationship Specialty Start Date End Date Alejandra Valle MD [address] [place] [address] PCP - General 08/26/08 Diixe Shin MD [address] [place] [address] Home Care Physician Orthopedics 01/16/20 Dixie Shin MD [address] [facility] [place] [address] Referring Orthopedics 01/16/20 Cecelia Pavon, PT [address] [place] [address] [facility] Post Acute [facility] 01/18/20 Registered Veterinary Technician Relationship Specialty Start Date End Date Alejandra aVlle MD [address] [place] [address] PCP - General 08/26/08 Dixie Shin MD [address] [facility] [place] [address] Home Care Physician Orthopedics 01/16/20 Dixie Shin MD [address] [facility] [place] [address] Referring Orthopedics 01/16/20 Cecelia Pavon, PT [address] [place] [address] [facility] Post Acute [facility] 01/18/20 Registered Veterinary Technician Relationship Specialty Start Date End Date Alejandra Valle MD [address] [place] [address] PCP - General 08/26/08 Diixe Shin MD [address] [place] [address] Home Care Physician Orthopedics 01/16/20 Dixie Shin MD [address] [place] [address] Referring Orthopedics 01/16/20 Cecelia Pavon, PT [address] [place] [address] [facility] Post Acute [facility] 01/18/20 Registered Veterinary Technician Relationship Specialty Start Date End Date Alejandra Valle MD [address] [place] [address] PCP - General 08/26/08 Dixie Shin MD [address] [place] [address] Home Care Physician Orthopedics 01/16/20 Dixie Shin MD [address] [place] [address] Referring Orthopedics 01/16/20 Cecelia Pavon, PT [address] [place] [address] [facility] Post Acute [facility] 01/18/20 Radha Carrizales RN [address] [place] [address] Secondary Teacher 10/18/21 Registered Veterinary Technician Relationship Specialty Start Date End Date Alejandra Valle MD [address] [place] [address] PCP - General 08/26/08 Dixie Shin MD [address] [place] [address] Home Care Physician Orthopedics 01/16/20 Dixie Shin MD [address] [place] [address] Referring Orthopedics 01/16/20 Cecelia Pavon, PT [address] [place] [address] [facility] 01/18/20 Radha Carrizales RN [address] [place] [address] Secondary Teacher 10/18/21 Registered Veterinary Technician Relationship Specialty Start Date End Date Alejandra Valle MD [address] [place] [address] PCP - General 08/26/08 Dixie Shin MD [address] [place] [address] Home Care Provider Orthopedics 01/16/20 Dixie Shin MD [address] [place] [address] Referring Orthopedics 01/16/20 Cecelia Pavon, PT [address] [place] [address] [facility] 01/18/20 Radha Carrizales RN [address] [place] [address] Secondary Teacher 10/18/21 Registered Veterinary Technician Relationship Specialty Start Date End Date Alejandra Valle MD [address] [place] [address] PCP - General 08/26/08 Dixie Shin MD [address] [place] [address] Home Care Provider Orthopedics 01/16/20 Dixie Shin MD [address] [place] [address] Referring Orthopedics 01/16/20 Cecelia Pavon, PT [address] [place] [address] [facility] 01/18/20 Radha Carrizales, RN [address] [place] [address] Secondary Teacher 10/18/21 Registered Veterinary Technician Relationship Specialty Start Date End Date Alejandra Valle MD [address] [place] [address] PCP - General 08/26/08 Dixie Shin MD [address] [place] [address] Home Care Provider Orthopedics 01/16/20 Dixie Shin MD [address] [place] [address] Referring Orthopedics 01/16/20 Cecelia Pavon, PT [address] [place] [address] [facility] 01/18/20 Radha Carrizales, RN [address] [place] [address] Secondary Teacher 10/18/21 Registered Veterinary Technician Relationship Specialty Start Date End Date Alejandra Valle MD [address] [place] [address] PCP - General 08/26/08 Dixie Shin MD [address] [place] [address] Home Care Provider Orthopedics 01/16/20 Dixie Shin MD [address] [place] [address] Referring Orthopedics 01/16/20 Cecelia Pavon, PT [address] [place] [address] [facility] 01/18/20 Radha Carrizales, RN [address] [place] [address] Secondary Teacher 10/18/21 Registered Veterinary Technician Relationship Specialty Start Date End Date Alejandra Valle MD [address] [place] [address] PCP - General 08/26/08 Dixie Shin MD [address] [place] [address] Home Care Provider Orthopedics 01/16/20 Dixie Shin MD [address] [place] [address] Referring Orthopedics 01/16/20 Cecelia Pavon, PT [address] [place] [address] [facility] 01/18/20 Radha Carrizales, RN [address] [place] [address] Secondary Teacher 10/18/21 Registered Veterinary Technician Relationship Specialty Start Date End Date Alejandra Valle MD [address] [place] [address] PCP - General 08/26/08 Dixie Shin MD [address] [place] [address] Home Care Provider Orthopedics 01/16/20 Dixie Shin MD [address] [place] [address] Referring Orthopedics 01/16/20 Cecelia Pavon, PT [address] [place] [address] [facility] 01/18/20 Radha Carrizales, DESTINEE [address] [place] [address] Secondary Teacher 10/18/21 Registered Veterinary Technician Relationship Specialty Start Date End Date Alejandra Valle MD [address] [place] [address] PCP - General 08/26/08 Dixie Shin MD [address] [place] [address] Home Care Provider Orthopedics 01/16/20 Dixie Shin MD [address] [place] [address] Referring Orthopedics 01/16/20 Cecelia Pavon, PT [address] [place] [address] [facility] 01/18/20 Radha Carrizales, RN [address] [place] [address] Secondary Teacher 10/18/21 Registered Veterinary Technician Relationship Specialty Start Date End Date Alejandra Valle MD [address] [place] [address] PCP - General 08/26/08 Dixie Shin MD [address] [place] [address] Home Care Provider Orthopedics 01/16/20 Dixie Shin MD [address] [place] [address] Referring Orthopedics 01/16/20 Cecelia Pavon, PT [address] [place] [address] [facility] 01/18/20 Tameka Arriola, director account managementSecondary Teacher 04/27/22 Registered Veterinary Technician Relationship Specialty Start Date End Date Alejandra Valle MD [address] [place] [address] PCP - General 08/26/08 Dixie Shin MD [address] [place] [address] Home Care Provider Orthopedics 01/16/20 Dixie Shin MD [address] [place] [address] Referring Orthopedics 01/16/20 Cecelia Pavon, PT [address] [place] [address] [facility] Post Acute [facility] 01/18/20 Tameka Arriola, director account managementSecondary Teacher 04/27/22 Registered Veterinary Technician Relationship Specialty Start Date End Date Alejandra Valle MD [address] [place] [address] PCP - General 08/26/08 Dixie Shin MD [address] [facility] [place] [address] Home Care Provider Orthopedics 01/16/20 Dixie Shin MD [address] [place] [address] Referring Orthopedics 01/16/20 Cecelia Pavon, PT [address] [place] [address] [facility] 01/18/20 Tameka Arriola, director account managementSecondary Teacher 04/27/22 Registered Veterinary Technician Relationship Specialty Start Date End Date Alejandra Valle MD [address] [place] [address] PCP - General 08/26/08 Dixie Shin MD [address] [facility] [place] [address] Home Care Provider Orthopedics 01/16/20 Dixie Shin MD [address] [place] [address] Referring Orthopedics 01/16/20 Cecelia Pavon, PT [address] [place] [address] [facility] 01/18/20 Tameka Arriola, director account managementSecondary Teacher 04/27/22 Registered Veterinary Technician Relationship Specialty Start Date End Date Alejandra Valle MD [address] [place] [address] PCP - General 08/26/08 Dixie Shin MD [address] [place] [address] Home Care Provider Orthopedics 01/16/20 Dixie Shin MD [address] [place] [address] Referring Orthopedics 01/16/20 Cecelia Pavon, PT [address] [place] [address] [facility] 01/18/20 Tameka Arriola, director account managementSecondary Teacher 04/27/22 Registered Veterinary Technician Relationship Specialty Start Date End Date Alejandra Valle MD [address] [place] [address] PCP - General 08/26/08 Dixie Shin MD [address] [place] [address] Home Care Provider Orthopedics 01/16/20 Dixie Shin MD [address] [place] [address] Referring Orthopedics 01/16/20 Cecelia Pavon, PT [address] [place] [address] [facility] 01/18/20 Ashley Garcia, RN [address] [place] [address] Secondary Teacher 08/30/22 Registered Veterinary Technician Relationship Specialty Start Date End Date Alejandra Valle MD [address] [place] [address] PCP - General 08/26/08 Dixie Shin MD [address] [place] [address] Home Care Provider Orthopedics 01/16/20 Dixie Shin MD [address] [place] [address] Referring Orthopedics 01/16/20 Cecelia Pavon, PT [address] [place] [address] [facility] 01/18/20 Ashley Garcia RN [address] [place] [address] Secondary Teacher 08/30/22 Registered Veterinary Technician Relationship Specialty Start Date End Date Alejandra Valle MD [address] [place] [address] PCP - General 08/26/08 Dixie Shin MD [address] [place] [address] Home Care Provider Orthopedics 01/16/20 Dixie Shin MD [address] [place] [address] Referring Orthopedics 01/16/20 Cecelia Pavon, PT [address] [place] [address] [facility] 01/18/20 Ashley Garcia RN [address] [place] [address] Secondary Teacher 08/30/22 Registered Veterinary Technician Relationship Specialty Start Date End Date Alejandra Valle MD [address] [place] [address] PCP - General 08/26/08 Dixie Shin MD [address] [place] [address] Home Care Provider Orthopedics 01/16/20 Dixie Shin MD [address] [place] [address] Referring Orthopedics 01/16/20 Cecelia Pavon, PT [address] [place] [address] [facility] 01/18/20 Ashley Garcia, DESTINEE [address] [place] [address] Secondary Teacher 08/30/22 Registered Veterinary Technician Relationship Specialty Start Date End Date Alejandra Valle MD [address] [place], [place] [id number] PCP - General 08/26/08 Dixie Shin MD [address] [place] [address] Home Care Provider Orthopedics 01/16/20 Dixie Shin MD [address] [place] [address] Referring Orthopedics 01/16/20 Cecelia Pavon, PT [address] [place] [address] [facility] 01/18/20 Ashley Garcia RN [address] [place] [address] Secondary Teacher 08/30/22 Registered Veterinary Technician Relationship Specialty Start Date End Date Alejandra Valle MD [address] [place], [place] [id number] PCP - General 08/26/08 Dixie Shin MD [address] [place] [address] Home Care Provider Orthopedics 01/16/20 Dixie Shin MD [address] [place] [address] Referring Orthopedics 01/16/20 Cecelia Pavon, PT [address] [place] [address] [facility] Post Acute [facility] 01/18/20 Ashley Garcia RN [address] [place] [address] Secondary Teacher 08/30/22 Registered Veterinary Technician Relationship Specialty Start Date End Date Alejandra Valle MD [address] [place], [place] [id number] PCP - General 08/26/08 Dixie Shin MD [address] [place] [address] Home Care Provider Orthopedics 01/16/20 Dixie Shin MD [address] [facility] [place] [address] Referring Orthopedics 01/16/20 Cecelia Pavon, PT [address] [place] [address] [facility] Post Acute [facility] 01/18/20 Ashley Garcia RN [address] [place], [place] [id number] Secondary Teacher 08/30/22 Registered Veterinary Technician Relationship Specialty Start Date End Date Alejandra Valle MD [address] [place], [place] [id number] PCP - General 08/26/08 Dixie Shin MD [address] [place] [address] Home Care Provider Orthopedics 01/16/20 Dixie Shin MD [address] [place] [address] Referring Orthopedics 01/16/20 Cecelia Pavon, PT [address] [place] [address] [facility] 01/18/20 Ashley Garcia, RN [address] [place] [address] Secondary Teacher 08/30/22 Registered Veterinary Technician Relationship Specialty Start Date End Date Alejandra Valle MD [facility] [place] [address] PCP - General 08/26/08 Dixie Shin MD [address] [place] [address] Home Care Provider Orthopedics 01/16/20 Dixie Shin MD [address] [facility] [place] [address] Referring Orthopedics 01/16/20 Cecelia Pavon, PT [address] [place], [place] [address] [facility] Post Acute [facility] 01/18/20 Ashley Garcia, RN [address] [place] [address] Secondary Teacher 08/30/22 Registered Veterinary Technician Relationship Specialty Start Date End Date Alejandra Valle MD [address] [place] [address] PCP - General 08/26/08 Dixie Shin MD [address] [place] [address] Home Care Provider Orthopedics 01/16/20 Dixie Shin MD [address] [place] [address] Referring Orthopedics 01/16/20 Cecelia Pavon, PT [address] [place] [address] [facility] 01/18/20 Ashley Garcia, DESTINEE [address] [place] [address] Secondary Teacher 08/30/22 Registered Veterinary Technician Relationship Specialty Start Date End Date Alejandra Valle MD [address] [place] [address] PCP - General 08/26/08 Dixie Shin MD [address] [place] [address] Home Care Provider Orthopedics 01/16/20 Dixie Shin MD [address] [place] [address] Referring Orthopedics 01/16/20 Cecelia Pavon, PT [address] [place] [address] [facility] 01/18/20 Tameka Arriola, director account managementSecondary Teacher 04/27/22 08/29/22 Registered Veterinary Technician Relationship Specialty Start Date End Date Alejandra Valle MD [address] [place] [address] PCP - General 08/26/08 Dixie Shin MD [address] [place] [address] Home Care Provider Orthopedics 01/16/20 Dxiie Shin MD [address] [place] [address] Referring Orthopedics 01/16/20 Cecelia Pavon, PT [address] [place] [address] [facility] 01/18/20 Ashley Garcia, RN [address] [place] [address] Secondary Teacher 08/30/22 Registered Veterinary Technician Relationship Specialty Start Date End Date Alejandra Valle MD [address] [place] [address] PCP - General 08/26/08 Dixie Shin MD [address] [place] [address] Home Care Provider Orthopedics 01/16/20 Dixie Shin MD [address] [place] [address] Referring Orthopedics 01/16/20 Cecelia Pavon, PT [address] [place] [address] [facility] Post Acute [facility] 01/18/20 Ashley Garcia, RN [address] [place] [address] Secondary Teacher 08/30/22 Registered Veterinary Technician Relationship Specialty Start Date End Date Alejandra Valle MD [address] [place] [address] PCP - General 08/26/08 Dixie Shin MD [address] [place] [address] Home Care Provider Orthopedics 01/16/20 Dixie Shin MD [address] [place] [address] Referring Orthopedics 01/16/20 Cecelia Pavon, PT [address] [place] [address] [facility] Post Acute [facility] 01/18/20 Ashley Garcia RN [address] [place] [address] Secondary Teacher 08/30/22 Registered Veterinary Technician Relationship Specialty Start Date End Date Alejandra Valle MD [address] [place] [address] PCP - General 08/26/08 Dixie Shin MD [address] [place] [address] Home Care Provider Orthopedics 01/16/20 Dixie Shin MD [address] [place] [address] Referring Orthopedics 01/16/20 Cecelia Pavon, PT [address] [place] [address] [facility] 01/18/20 Ashley Garcia RN [address] [place] [address] Secondary Teacher 08/30/22 Registered Veterinary Technician Relationship Specialty Start Date End Date Alejandra Valle MD [address] [place] [address] PCP - General 08/26/08 Ashley Garcia, RN [address] [place] [address] Secondary Teacher 08/30/22 Dixie Shin MD [address] [place], [place] [id number] Home Care Provider Orthopedics 04/26/23 INFORMATION SOURCE (unrecogn ized section and content) FOR RECORDS PERTAINING TO PATIENTS WHO ARE OR HAVE BEEN ENROLLED IN A CHEMICAL DEPENDENCY/SUBSTANCEABUSE PROGRAM, SOME INFORMATION MAY BE OMITTED. This clinical summary was aggregated from multiple sources. Caution should be exercised in using it in the provision of clinical care. This summary normalizes information from multiple sources, and as a consequence, information in this document may materially change the coding, format and clinical context of patient data. In addition, data may be omitted in some cases. CLINICAL DECISIONS SHOULD BE BASED ON THE PRIMARY CLINICAL RECORDS. [employer] [facility]. provides no warranty or guarantee of the accuracy or completeness of information in this document.
--- NOTE | 2023-04-29 01:19 | RAD_ITS ---
STUDY: X-RAY - PELVIS AND LEFT HIP REASON FOR EXAM: Female, 78 years old. pain TECHNIQUE: 3 views of the pelvis and hip. COMPARISON: None. FINDINGS: There is a non-specific bowel gas pattern. Normal visualized soft tissue structures. There is narrowing with cortical sclerosis and osteophyte formation of the sacroiliac joint consistent with degenerative osteoarthritic changes. Normal bilateral superior and inferior pubic rami. There are degenerative changes of the pubic symphysis with articular narrowing and sclerosis. Normal bilateral ischial tuberosities. Right-sided hip prosthesis in place with normal alignment. Left-sided hip prosthesis with superior dislocation of the left femur in relation to the acetabular component. No acute fracture. RAD/HIP, UNI W/ Pelvis 2-3 Views IMPRESSION: Bilateral hip prosthesis in place with superior dislocation of the left femur in relation to the acetabular component as described. No acute fracture. Electronically Signed: Kristen Hernández MD at 1:40 EST ,
[2023-04-29] MEDS: Propofol 200 MG/20 ML Vial IV BOLUS (06:29)
[2023-04-29] MEDS: 0.9% Normal Saline (1000mL) 1,000 ML 999 ML IV (06:30)
[2023-04-29] MEDS: Ketamine HCl 500 MG/5 ML Vial 246 MG IM (06:43)
--- NOTE | 2023-04-29 06:58 | CON.PCM.OR_ITS ---
HPI Consult Data Date of Consult: 04/29/23 HPI Narrative HPI Narrative: MATEO BEDOYA, is a 78 F who presents with L superior hip dislocation after total hip arthroplasty that was done about 2 days ago now by a surgeon at [facility]. Patient was try to get up onto a stool at home and dislocated the hip. [facility] Medical History (Updated 04/29/23 @ 07:00 by Xiang Yung MD) Atherosclerosis of coronary artery of [place] heart without angina pectoris Benign neoplasm of brain Bicipital tendinitis of left shoulder Bilateral headaches Cerebral meningioma Degenerative joint disease (DJD) of hip Dyslipidemia (high LDL; low HDL) Environmental allergies Essential (primary) hypertension Facet arthropathy, lumbar Herpes zoster Hip dislocation, left Hyperthyroidism Left shoulder pain Obesity Recurrent stenosis of left carotid artery Rotator cuff tendonitis Segmental and somatic dysfunction of lumbar region Segmental and somatic dysfunction of pelvic region Home Medications levothyroxine 137 mcg tablet (Synthroid) 137 mcg PO DAILY thyroid 12/24/17 [History Last Taken 08/14/18] gabapentin 300 mg capsule 600 mg PO BID nerve damage 10/28/19 [History Last Taken Unknown] aspirin 81 mg chewable tablet 325 mg PO DAILY@0800 06/16/21 [History Last Taken Unknown] atorvastatin 80 mg tablet 80 mg PO QHS #90 tabs 06/16/21 [Rx Last Taken Unknown] clopidogrel 75 mg tablet 75 mg PO DAILY #90 tabs 06/16/21 [Rx Last Taken Unknown] hydrochlorothiazide 12.5 mg capsule 12.5 mg PO DAILY #90 caps 06/16/21 [Rx Last Taken Unknown] oxybutynin chloride 10 mg tablet,extended release 24 hr 10 mg PO DAILY 06/16/21 [History Last Taken Unknown] nitroglycerin 0.4 mg sublingual tablet 0.4 mg sublingual Q5-15M PRN Cardiac/Chest Pain #25 tabs 12/12/21 [Rx Last Taken Unknown] atenolol 100 mg tablet See Rx Instructions .Route .COMPLEX #180 tabs 12/23/21 [Rx Last Taken Unknown] calcium carbonate 200 mg calcium (500 mg) chewable tablet (Tums) 200 mg PO BID 06/06/22 [History Last Taken Unknown] losartan 100 mg tablet 100 mg PO DAILY Patient is OUT, had family emergency please fill #90 tabs 02/21/23 [Rx Last Taken Unknown] Allergy/AdvReac Type Severity Reaction Status Date / Time bee venom protein (honey bee) Allergy Anaphylaxis Verified 04/29/23 01:00 codeine AdvReac Unknown Verified 04/29/23 01:00 icosapent ethyl AdvReac Joint Verified 04/29/23 01:00 [From Vascepa] swelling and pain morphine AdvReac Unknown Verified 04/29/23 01:00 oxycodone [From Percodan] AdvReac Unknown Verified 04/29/23 01:00 Family History Father Heart disease Diabetes Brother Diabetes Mother Cancer Thyroid Arthritis Aunt Arthritis Grandmother Cancer uterine/cervical Other Hypertension Surgical History History of abdominal surgery History of coronary artery stent placement (08/14/18) History of hysterectomy History of left common carotid artery stent placement (07/19/21) History of left-sided carotid endarterectomy (10/21/19) History of partial thyroidectomy History of total hip arthroplasty (12/2019) Hx of cholecystectomy Social History Smoking Status: Never smoker alcohol intake: never substance use type: does not use what type of physical activity do you participate in: none Vital Signs Vital Signs Vital Signs: 04/29/23 00:53 Temperature 97.1 F L Temperature Source Temporal Pulse Rate 88 Respiratory Rate 20 H Blood Pressure 143/60 H Blood Pressure Mean 87 Pulse Ox 96 Oxygen Delivery Method Room Air Weight Weight: 227 lb 8.273 oz Body Mass Index (BMI) 35.6 Physical Exam Const alert, oriented x3 and well nourished Extremity Extremity Narrative: Closed. There is a dressing. This appears to be a posterior hip incision and possibly lateral little bit difficult to tell given the body habitus and the dressing in place. The leg is little bit short compared to the other side. The patient is able to wiggle the toes dorsiflex and plantarflex the foot strong dorsalis pedis pulses normal sensation throughout the foot. Imaging Radiology Impression Hip/Pelvis X-Ray 04/29/23 01:19 IMPRESSION: Bilateral hip prosthesis in place with superior dislocation of the left femur in relation to the acetabular component as described. No acute fracture. Electronically Signed: Kristen Hernández MD at 1:40 EST , Agree superior dislocation left total hip arthroplasty. Assessment & Plan Assessment/Plan (1) Hip dislocation, left: PLAN: 78-year-old female with a superior hip dislocation on the left side. Consented and did a conscious sedation with attempted number of different maneuvers traction, rotation, hip flexion, direct manipulation and others, to try to get a closed reduction on the left hip which was a difficult given the location of the dislocation (high superior) and the patient's body habitus. Was given ketamine for that as the IVs were not flowing freely. Ordered a portable x-ray to assess the status of the reduction. Still dislocated. No fracture or loose components apparent. Will need transfer to [facility] for rehabilitation for index surgeon to revise. Pros and cons risks and benefits were discussed with the patient including but not limited to infection, pain, stiffness, bleeding, damage to surrounding structures, neurovascular injury, recurrence or retear, failure or wear of hardware or fixation, instability, fracture, deep vein thrombosis and pulmonary embolism, anesthetic risks, , patient dissatisfaction, need for further surgery and other risks. Patient understood and wished to proceed with surgery, and signed the informed consent documentation.
--- NOTE | 2023-04-29 07:05 | RAD_ITS ---
INDICATION: displacement EXAMINATION/TECHNIQUE: X-RAY - one view of the left hip. COMPARISON: No relevant prior comparison study available FINDINGS: BONES: The patient is status post left hip arthroplasty. There is superior dislocation of the femoral component relative to the acetabular component. There is no fracture identified. SOFT TISSUES: No soft tissue swelling or gas. RAD/Hip 1 view with Pelvis IMPRESSION: Status post left hip arthroplasty with superior dislocation of the femoral component relative to the acetabular component. Electronically Signed: Arnulfo Hathaway MD at 7:32 EST ,
--- NOTE | 2023-04-29 07:17 | ED.VIS.LOWEX ---
HPI History of Present Illness Chief Complaint: Fall Narrative Narrative: 78-year-old female with right hip pain. Patient had elective right total hip replacement on 04/26/2023. This was performed at [facility]. The surgeon's name was Dylan Shin. Patient states she was doing well until last evening when she stepped up on a stool in the bathroom and lost her footing falling on her hip. She states he is unable to ambulate since then. Denies head injury or LOC. Denies injury elsewhere. Denies numbness or tingling lower extremity. [facility] Medical History Atherosclerosis of coronary artery of [place] heart without angina pectoris Benign neoplasm of brain Bicipital tendinitis of left shoulder Bilateral headaches Cerebral meningioma Degenerative joint disease (DJD) of hip Dyslipidemia (high LDL; low HDL) Environmental allergies Essential (primary) hypertension Facet arthropathy, lumbar Herpes zoster Hip dislocation, left Hyperthyroidism Left shoulder pain Obesity Recurrent stenosis of left carotid artery Rotator cuff tendonitis Segmental and somatic dysfunction of lumbar region Segmental and somatic dysfunction of pelvic region Home Medications levothyroxine 137 mcg tablet (Synthroid) 137 mcg PO DAILY thyroid 12/24/17 [History Last Taken 08/14/18] gabapentin 300 mg capsule 600 mg PO BID nerve damage 10/28/19 [History Last Taken Unknown] aspirin 81 mg chewable tablet 325 mg PO DAILY@0800 06/16/21 [History Last Taken Unknown] atorvastatin 80 mg tablet 80 mg PO QHS #90 tabs 06/16/21 [Rx Last Taken Unknown] clopidogrel 75 mg tablet 75 mg PO DAILY #90 tabs 06/16/21 [Rx Last Taken Unknown] hydrochlorothiazide 12.5 mg capsule 12.5 mg PO DAILY #90 caps 06/16/21 [Rx Last Taken Unknown] oxybutynin chloride 10 mg tablet,extended release 24 hr 10 mg PO DAILY 06/16/21 [History Last Taken Unknown] nitroglycerin 0.4 mg sublingual tablet 0.4 mg sublingual Q5-15M PRN Cardiac/Chest Pain #25 tabs 12/12/21 [Rx Last Taken Unknown] atenolol 100 mg tablet See Rx Instructions .Route .COMPLEX #180 tabs 12/23/21 [Rx Last Taken Unknown] calcium carbonate 200 mg calcium (500 mg) chewable tablet (Tums) 200 mg PO BID 06/06/22 [History Last Taken Unknown] losartan 100 mg tablet 100 mg PO DAILY Patient is OUT, had family emergency please fill #90 tabs 02/21/23 [Rx Last Taken Unknown] Allergy/AdvReac Type Severity Reaction Status Date / Time bee venom protein (honey bee) Allergy Anaphylaxis Verified 04/29/23 01:00 codeine AdvReac Unknown Verified 04/29/23 01:00 icosapent ethyl AdvReac Joint Verified 04/29/23 01:00 [From Vascepa] swelling and pain morphine AdvReac Unknown Verified 04/29/23 01:00 oxycodone [From Percodan] AdvReac Unknown Verified 04/29/23 01:00 Family History Father Heart disease Diabetes Brother Diabetes Mother Cancer Thyroid Arthritis Aunt Arthritis Grandmother Cancer uterine/cervical Other Hypertension Surgical History History of abdominal surgery History of coronary artery stent placement (08/14/18) History of hysterectomy History of left common carotid artery stent placement (07/19/21) History of left-sided carotid endarterectomy (10/21/19) History of partial thyroidectomy History of total hip arthroplasty (12/2019) Hx of cholecystectomy Social History Smoking Status: Never smoker alcohol intake: never substance use type: does not use what type of physical activity do you participate in: none ROS ROS ED Constitutional Constitutional ED: Denies chills, fever(s) or sweats Eyes Eyes: Denies blurry vision or change in vision ENT ENT ED: Denies ear pain or sore throat Cardiovascular Cardiovascular: Denies chest pain, palpitations or racing heartbeat Respiratory/Chest Respiratory/Chest: Denies cough, dyspnea or sputum Gastrointestinal Gastrointestinal: Denies abdominal pain, constipation, diarrhea, nausea or vomiting Genitourinary Genitourinary ED: Denies dysuria, hematuria or urinary frequency Musculoskeletal Musculoskeletal: Reports other Details: Left hip pain ; Denies arthralgias, myalgias or neck pain Integumentary Denies abscess, Abrasions or rash Neurologic Neurologic: Denies headache(s), paresthesias or weakness Psychiatric Psychiatric: Denies anxiety, depression, suicidal ideation or suicidal thoughts Endocrine Endocrinology: Denies polydipsia or polyuria EXAM Physical Exam Const Vital Signs: 04/29/23 00:53 Temperature 97.1 F L Temperature Source Temporal Pulse Rate 88 Respiratory Rate 20 H Blood Pressure 143/60 H Blood Pressure Mean 87 Pulse Ox 96 Oxygen Delivery Method Room Air Positive well nourished General Appearance ED: NAD HEENT Reports moist mucous membranes normocephalic and atraumatic Chest Wall inspection of chest normal Resp normal respiratory effort and no retractions Cardio regular rate and regular rhythm Extremity Extremity Narrative: Tenderness palpation over the left greater trochanter. Positive logroll of hip. Left leg slightly shorter without external rotation. Neurovascular intact throughout. Neuro oriented x3 Sensorium / Orientation: alert Psych mental status grossly normal MDM MDM MDM Narrative Medical decision making narrative: Patient seen and evaluated on arrival. Vital signs are stable she is afebrile. She had mechanical fall when she injured her left hip. Differential includes hip contusion, hip fracture, hip dislocation. Patient medicated with morphine, Zofran. X-ray of the left hip on my interpretation shows superior dislocation. She is postop day 3. This was discussed with Dr. Yung. There was delay in care as it was very difficult to keep the patient's IV established. Eventually there were 2 established one in the right antecubital fossa, and one left antecubital fossa. He did come attempt to reduce the left hip under conscious sedation with propofol. We initially started with propofol in the right arm however the IV infiltrated. Then the used IV access in the left arm this also infiltrated. At this point we used ketamine. We attempted several times to reduce the patient's hip without success. Repeat films showed that is not in place. Dr. Yung recommended transport back to facility where her surgeon is. He states this might require surgical intervention. This is discussed with the patient. We will obtain consent and transport. Impression: 1. Mechanical fall 2. Left hip dislocation Lab Data Attestation: I reviewed the patient's lab results. Radiography Diagnostic Testing: Clinical Impression(s) from Imaging Studies Hip/Pelvis X-Ray 04/29/23 01:19 IMPRESSION: Bilateral hip prosthesis in place with superior dislocation of the left femur in relation to the acetabular component as described. No acute fracture. Electronically Signed: Kristen Hernández MD at 1:40 EST , Discharge Plan Triage Chief Complaint: Fall ED Provider: Tremaine Núñez Dx/Rx/DC Orders Prescriptions: No Action levothyroxine [Synthroid] 137 mcg tablet 137 mcg PO DAILY gabapentin 300 mg capsule 600 mg PO BID oxybutynin chloride 10 mg tablet extended release 24hr 10 mg PO DAILY aspirin 81 mg tablet,chewable 325 mg PO DAILY@0800 atorvastatin 80 mg tablet 80 mg PO QHS Qty: 90 3RF clopidogrel 75 mg tablet 75 mg PO DAILY Qty: 90 3RF hydrochlorothiazide 12.5 mg capsule 12.5 mg PO DAILY Qty: 90 3RF calcium carbonate [Tums] 200 mg calcium (500 mg) tablet,chewable 200 mg PO BID nitroglycerin 0.4 mg tablet, sublingual 0.4 mg SL Q5-15M PRN (Reason: Cardiac/Chest Pain) Qty: 25 3RF atenolol 100 mg tablet See Rx Instructions .ROUTE .COMPLEX Qty: 180 3RF Dose Instruction: TAKE 1 TABLET BY MOUTH TWICE A DAY Rx Instructions: TAKE 1 TABLET BY MOUTH TWICE A DAY losartan 100 mg tablet 100 mg PO DAILY Qty: 90 3RF Primary Care Provider: Dilan Valle Referrals: Dilan Valle MD [Primary Care Provider] -
--- NOTE | 2023-04-29 07:18 | ED.RN ---
This RN in room for conscious sedation. Pt with Peripheral IV to CHRISTIAN. MD administered IV propofol, IV infiltrated. Pt also with IV to LAC. MD administered IV propofol to LAC, IV also infiltrated. IV removed and ice applied.
--- NOTE | 2023-04-29 08:07 | ED.RN ---
CALLED PHYSICIANS AT [phone]
== END 2023-04-29 09:11 | disposition short-term general hospital (02) ==
LOC: ED 01:15
PROVIDERS: Emergency Provider Student in an Organized Health Care Education/Training Program; PCP Family Medicine; Visit Provider Student in an Organized Health Care Education/Training Program
DX: S73.005A Unspecified dislocation of left hip, initial encounter (principal); Z96.643 Presence of artificial hip joint, bilateral; W08.XXXA Fall from other furniture, initial encounter; Y92.89 Other specified places as the place of occurrence of the external cause; I25.10 Atherosclerotic heart disease of native coronary artery without angina pectoris; E78.5 Hyperlipidemia, unspecified; I10 Essential (primary) hypertension; E05.90 Thyrotoxicosis, unspecified without thyrotoxic crisis or storm; Z79.82 Long term (current) use of aspirin; Z79.02 Long term (current) use of antithrombotics/antiplatelets; Z79.899 Other long term (current) drug therapy; Z95.5 Presence of coronary angioplasty implant and graft; Z90.710 Acquired absence of both cervix and uterus; Z90.49 Acquired absence of other specified parts of digestive tract
CPT/HCPCS: 51702; 73501; 73502; 96360; 96372; 99156; 99157; 99285; J7030; A4216

== ENCOUNTER 2023-05-04 14:36 | Observation (INO) | payer MEDICARE, SELFPAY ==
[2018-08-23 10:07] VITALS: BMI 35.6
[2023-05-04 14:48] VITALS: BP 134/37; PULSE 76; RESP 18; TEMP 36.6; O2SAT 95
--- NOTE | 2023-05-04 15:51 | CASEMGMT ---
RN Care Management: Call received from Moon, Chemical Mixer for [facility] TCU/RU stating she had received a previous referral for this patient when the pt was at [facility]. At that time, pt was able to ambulate 800 feet and it was determined that pt would not qualify for RU or TCU level of care for precert from pt's insurance provider [employer] [facility]. Since that discharge, pt has been receiving home health services including SN, PT/OT/SW services from [facility]. Moon received a referral from [facility] BECKY Vela on this date with therapy notes sent to her for review. BECKY Vela reported that pt was noted by nursing to be ambulating in the home independently which was different than what was noted by the therapist's documentation. Due to concerns including inconsistency in pt's functional ability, pt is not accepted at this time to [facility] RU or TCU. Further review will be conducted on Sunday if appropriate for reconsideration at that time. Pt would require precertification from [facility] for admission to either LOC. Information shared with SHRUTHI Calhoun. Ciro Burch, DESTINEE AC
--- NOTE | 2023-05-04 16:30 | EDS_ITS ---
HPI History of Present Illness Chief Complaint: Lower Extremity Injury Detail of Chief Complaint: Weakness, falls, unable to ambulate Informant: patient Narrative Narrative: Patient presents seeking rehab placement. Patient had a left hip replacement on April 26. This was performed at [facility]. She was discharged home on the second but spent the night at a local hotel in [place]. She returned back to her home in [place] on April 28. On that date she fell try to get out of bed and dislocated her hip. Multiple attempts were made here to reduce the hip but were unsuccessful. Patient was ultimately tra nsferred back to [facility] where they were able to reduce her hip in the OR without requiring a repeat surgery. Patient states prior to her dislocation she was able to ambulate well. Since her dislocation she has not been able to get up and ambulate and cannot care for herself at home. She has had home physical and Occupational Therapy who have both reported they do not feel she is safe at home. She presents for rehab placement. [facility] Medical History Atherosclerosis of coronary artery of [place] heart without angina pectoris Benign neoplasm of brain Bicipital tendinitis of left shoulder Bilateral headaches Cerebral meningioma Degenerative joint disease (DJD) of hip Dyslipidemia (high LDL; low HDL) Environmental allergies Essential (primary) hypertension Facet arthropathy, lumbar Herpes zoster Hip dislocation, left Hyperthyroidism Left shoulder pain Obesity Recurrent stenosis of left carotid artery Rotator cuff tendonitis Segmental and somatic dysfunction of lumbar region Segmental and somatic dysfunction of pelvic region Home Medications levothyroxine 137 mcg tablet (Synthroid) 137 mcg PO DAILY thyroid 12/24/17 [History Last Taken 08/14/18] gabapentin 300 mg capsule 600 mg PO BID nerve damage 10/28/19 [History Last Taken Unknown] aspirin 81 mg chewable tablet 325 mg PO DAILY@0800 06/16/21 [History Last Taken Unknown] atorvastatin 80 mg tablet 80 mg PO QHS #90 tabs 06/16/21 [Rx Last Taken Unknown] clopidogrel 75 mg tablet 75 mg PO DAILY #90 tabs 06/16/21 [Rx Last Taken Unknown] hydrochlorothiazide 12.5 mg capsule 12.5 mg PO DAILY #90 caps 06/16/21 [Rx Last Taken Unknown] oxybutynin chloride 10 mg tablet,extended release 24 hr 10 mg PO DAILY 06/16/21 [History Last Taken Unknown] nitroglycerin 0.4 mg sublingual tablet 0.4 mg sublingual Q5-15M PRN Cardiac/Chest Pain #25 tabs 12/12/21 [Rx Last Taken Unknown] atenolol 100 mg tablet See Rx Instructions .Route .COMPLEX #180 tabs 12/23/21 [Rx Last Taken Unknown] calcium carbonate 200 mg calcium (500 mg) chewable tablet (Tums) 200 mg PO BID 06/06/22 [History Last Taken Unknown] losartan 100 mg tablet 100 mg PO DAILY Patient is OUT, had family emergency please fill #90 tabs 02/21/23 [Rx Last Taken Unknown] Allergy/AdvReac Type Severity Reaction Status Date / Time bee venom protein (honey bee) Allergy Anaphylaxis Verified 05/04/23 14:48 codeine AdvReac Unknown Verified 05/04/23 14:48 icosapent ethyl AdvReac Joint Verified 05/04/23 14:48 [From Vascepa] swelling and pain morphine AdvReac Unknown Verified 05/04/23 14:48 oxycodone [From Percodan] AdvReac Unknown Verified 05/04/23 14:48 Family History Father Heart disease Diabetes Brother Diabetes Mother Cancer Thyroid Arthritis Aunt Arthritis Grandmother Cancer uterine/cervical Other Hypertension Surgical History History of abdominal surgery History of coronary artery stent placement (08/14/18) History of hysterectomy History of left common carotid artery stent placement (07/19/21) History of left-sided carotid endarterectomy (10/21/19) History of partial thyroidectomy History of total hip arthroplasty (12/2019) Hx of cholecystectomy Social History Smoking Status: Never smoker alcohol intake: never substance use type: does not use what type of physical activity do you participate in: none ROS ROS ED Constitutional Constitutional ED: Denies chills or fever(s) Eyes Eyes: Denies discharge from eye(s) ENT ENT ED: Denies discharge from eye(s), rhinorrhea or sore throat Cardiovascular Cardiovascular: Denies chest pain or palpitations Respiratory/Chest Respiratory/Chest: Denies cough or dyspnea Gastrointestinal Gastrointestinal: Denies abdominal pain, nausea or vomiting Genitourinary Genitourinary ED: Denies dysuria Musculoskeletal Musculoskeletal: Reports extremity pain; Denies back pain Integumentary Denies Abrasions or rash Neurologic Neurologic: Denies headache(s) or weakness Psychiatric Psychiatric: Denies anxiety or depression Allergic/Immunologic Allergic/Immunologic ED: Denies lip swelling or urticaria EXAM Physical Exam Const Vital Signs: 05/04/23 14:48 05/04/23 16:22 Temperature 97.8 F Temperature Source Temporal Pulse Rate 76 Respiratory Rate 18 Respiratory Effort Normal Non-Labored Respiratory Pattern Normal Blood Pressure 134/37 H Blood Pressure Mean 69 Pulse Ox 95 Oxygen Delivery Method Room Air Positive well nourished and well developed General Appearance ED: well developed HEENT Reports moist mucous membranes Eyes EOMs intact bilaterally Chest Wall inspection of chest normal and palpation of chest normal Resp normal respiratory effort and clear to auscultation bilaterally Cardio regular rate and regular rhythm GI non-tender Palpation: soft Extremity Extremity Narrative: Equal leg lengths. Good distal pulses. Neuro oriented x3 Psych mental status grossly normal Skin Skin Narrative: Healing surgical site without sign of infection. MDM MDM MDM Narrative Medical decision making narrative: I spoke with social work. Social work from [facility] has reported been in contact with another neonatal social worker at the hospital. Their note from earlier today states the patient will require admission for preauthorization. Baseline lab work will be obtained for this and I will speak with the hospitalist. Discharge Plan Triage Chief Complaint: Lower Extremity Injury ED Provider: Jamee Iqbal Dx/Rx/DC Orders Clinical Impression: Postop check, Unable to ambulate Prescriptions: No Action levothyroxine [Synthroid] 137 mcg tablet 137 mcg PO DAILY gabapentin 300 mg capsule 600 mg PO BID oxybutynin chloride 10 mg tablet extended release 24hr 10 mg PO DAILY aspirin 81 mg tablet,chewable 325 mg PO DAILY@0800 atorvastatin 80 mg tablet 80 mg PO QHS Qty: 90 3RF clopidogrel 75 mg tablet 75 mg PO DAILY Qty: 90 3RF hydrochlorothiazide 12.5 mg capsule 12.5 mg PO DAILY Qty: 90 3RF calcium carbonate [Tums] 200 mg calcium (500 mg) tablet,chewable 200 mg PO BID nitroglycerin 0.4 mg tablet, sublingual 0.4 mg SL Q5-15M PRN (Reason: Cardiac/Chest Pain) Qty: 25 3RF atenolol 100 mg tablet See Rx Instructions .ROUTE .COMPLEX Qty: 180 3RF Dose Instruction: TAKE 1 TABLET BY MOUTH TWICE A DAY Rx Instructions: TAKE 1 TABLET BY MOUTH TWICE A DAY losartan 100 mg tablet 100 mg PO DAILY Qty: 90 3RF Primary Care Provider: Dilan Valle Referrals: Dilan Valle MD [Primary Care Provider] - Disposition Disposition: Acute Care Hospital [facility]
[2023-05-04 16:52] LABS: Hematocrit 28.7 % (37-47); Hemoglobin 8.7 g/dL (12.0-15.0); Mean Corp Hgb Conc 30.3 g/dL (32-36); Mean Corpuscular Hgb 27.1 pg (27.0-32.0); Mean Corpuscular Volume 89.4 fL (81-99); Mean Platelet Vol. 9.5 fl (6.2-12.0); POSITIVE COUNT YES; POSITIVE MORPHOLOGY YES; Platelet Count 479 K/mm3 (150-450); RBC Distribution Width CV 14.7 % (11.6-14.6); RBC Distribution Width SD 47.4 fl (35.1-43.9); Red Blood Count 3.21 M/mm3 (4.2-5.4); White Blood Count 15.1 K/mm3 (4.4-11.0)
[2023-05-04 17:06] LABS: Anion Gap 3 (5-15); BUN 18 mg/dL (7-18); BUN/Creat Ratio 15.5 RATIO (10-20); Chloride 102 mmol/L (98-107); Creatinine, Serum 1.16 mg/dL (0.55-1.02); EST Glomerular Filtration Rate 48 mL/min (>60); Est Glom Filt Rate - Afr Amer 58 mL/min (>60); Glucose 211 mg/dL (74-106); Potassium 4.1 mmol/L (3.5-5.1); Sodium Level 138 mmol/L (136-145)
[2023-05-04 17:12] LABS: Differential Indicated MANUAL DIFF
[2023-05-04 17:36] LABS: Eosinophil 8 % (0-5); Lymphocyte 27 % (19-41); Monocyte 4 % (0-10); Neutrophil-Band 4 % (0-5); Neutrophil-Segmented 57 % (47-70); Total Cells Counted 100 (MANUAL DIFF)
[2023-05-04 17:39] LABS: Absolute Lymphocyte Count 4.09 X10^3/uL (0.83-4.51); Absolute Neutrophil Count 9.2 X10^3/uL (2.0-7.7)
[2023-05-04 17:40] LABS: Hypochromasia 2+
--- OUTSIDE RECORDS SUMMARY | 2023-05-04 17:41 | XMS RPT_ITS | CCD ---
Author Name Unknown Address [address] [place] [address] Organization [facility] Care Team Providers Care Closing Machine Operator Name Role Phone Alejandra Valle MD Primary Care Provider Dixie Shin MD Unavailable Dixie Shin MD Unavailable Savanah PT, Laurayalang Unavailable All FELIPE, Radha Andrew Unavailable Alejandra Valle MD Primary Care Provider Dixie Shin MD Unavailable Dixie Shin MD Unavailable Savanah PT, Fayaz Unavailable Flako FELIPE, Tameka Unavailable Unavailable Radha FELIPE, Ashley Unavailable Savanah PT, Fayaz Unavailable Radha FELIPE, Ashley Unavailable Flako FELIPE, Tameka Unavailable Unavailable Dixie Shin MD Unavailable ALEJANDRA VALLE Primary Care Unavailable ALEJANDRA VALLE Referring Unavailable ALEJANDRA VALLE Primary Care Unavailable LUANNE KENT Attending Unavailable ALEJANDRA VALLE Primary Care Unavailable ALEJANDRA VALLE Primary Care Unavailable EROS JAY Referring Unavailable ALEJANDRA VALLE Primary Care Unavailable ALEJANDRA VALLE Primary Care Unavailable DIXIE SHIN Attending Unavailable ALEJANDRA VALLE Primary Care Unavailable ALEJANDRA VALLE Referring Unavailable ALEJANDRA VALLE Primary Care Unavailable ALEJANDRA VALLE Attending Unavailable CONCEPCION BOUDREAUX Attending Unavailable CONCEPCION BOUDREAUX Admitting Unavailable ELDERBROCK, ALEJANDRA Johnson Primary Care Unavailable ELDERBROCK, ALEJANDRA Elizabeth Primary Care Unavailable ELDERBROCK, ALEJANDRA D Primary Care Unavailable TAMICA, DIOMEDES Gaston Referring Unavailable ELDERBROCK, ALEJANDRA D Primary Care Unavailable ELDERBROCK, ALEJANDRA D Referring Unavailable TAMICA, DIOMEDES Gaston Attending Unavailable DECAPUA, EROS Referring Unavailable ELDERBROCK, ALEJANDRA D Primary Care Unavailable ELDERBROCK, ALEJANDRA D Primary Care Unavailable DIXIE SHIN Referring Unavailable ELDERBROCK, ALEJANDRA Elizabeth Primary Care Unavailable ELDERBROCK, ALEJANDRA D Referring Unavailable ELDERBROCK, ALEJANDRA D Primary Care Unavailable [facility] Attending Unavailable [facility] Admitting Unavailable ELDERBROCK, ALEJANDRA Elizabeth Primary Care Unavailable TAMICA, DIOMEDES J Referring Unavailable ELDERBROCK, ALEJANDRA D Primary Care Unavailable ELDERJAMIPRAMOD, ALEJANDRA D Attending Unavailable Lien WILKES, Javier Unavailable [phone] Liyah PT, Lisseth Unavailable Janusz WATTS, Concepcion Unavailable Alea WILKES, Surya Unavailable Allergies Allergy Classification Reported Allergen(s) Allergy Type Date of Onset Reaction(s) Facility (20 sources) Acetaminophen; Translations: [ACETAMINOPHEN] Drug Allergy 5 Intolerance [facility] Work Phone: (20 sources) Aspirin; Translations: [ASPIRIN] Drug Allergy 5 Intolerance [facility] Work Phone: (20 sources) Codeine; Translations: [CODEINE] Drug Allergy 5 GI Upset [facility] Work Phone: (20 sources) Morphine; Translations: [MORPHINE] Drug Allergy 5 Other: See Comments, GI Upset [facility] Work Phone: (20 sources) bee stings and insect bites [Other] Propensity to adverse reactions 6 Swelling [facility] Work Phone: (8 sources) Bee Sting; Translations: [BEE STING] Allergy to substance 4 Anaphylaxis [facility] Work Phone: (7 sources) Acetaminophen / oxyCODONE; Translations: [OXYCODONE-ACETAM INOPHEN] Drug Allergy 4 Other: See Comments [facility] Repository (1 source) OTHER; Translations: [OTHER] Propensity to adverse reactions (disorder) 6 [facility] Medications Current Medications Medication Drug Class(es) Dates Sig (Normalized) Sig (Original) acetaminophen 500 mg oral tablet (6 sources) Start: 05-01-2023 End: 05-08-2023 take 2 tablets by mouth every eight hours acetaminophen (TYLENOL EXTRA STRENGTH) 500 mg tablet Take 2 tablets by mouth every 8 hours for 7 days. SAME DAY TOTAL JOINT 42 tablet 0 05/01/2023 05/08/2023 Active Completed/Discontinued Medications Medication Drug Class(es) Dates Sig (Normalized) Sig (Original) aspirin 325 mg oral tablet (20 sources) Platelet Aggregation Inhibitor, Nonsteroidal Anti-inflammatory Drug Start: 06-17-2021 take 1 tablet by mouth once daily aspirin 325 mg tablet Take 1 tablet by mouth once daily. 30 tablet 0 06/17/2021 Active Problems Active Problems Problem Classification Problem Date Documented Date Episodic/Chronic Chronic kidney disease (20 sources) Chronic kidney disease stage 3A ; Translations: [Stage 3a chronic kidney disease] Onset: 01-13-2020 01-13-2020 Chronic Complication of device; implant or graft (1 source) Dislocation of unspecified internal joint prosthesis, initial encounter; Translations: [Dislocation of prosthetic joint, initial encounter ([facility])] Onset: 04-29-2023 Episodic Coronary atherosclerosis and other heart disease (20 sources) Coronary atherosclerosis; Translations: [Atherosclerotic heart disease of sun'aq coronary artery without angina pectoris] Onset: 01-09-2019 [...] chronic kidney disease] Onset: 12-27-2020 12-27-2020 Chronic Joint disorders and dislocations; trauma-related (7 sources) Unspecified dislocation of left hip, subsequent encounter; Translations: [Dislocation of hip joint] Onset: 04-29-2023 04-29-2023 Episodic Occlusion or stenosis of precerebral arteries (20 [...] [Status post total hip replacement, left] Onset: 04-29-2023 Chronic Other connective tissue disease (1 source) [...] [Rash and other nonspecific skin eruption] Episodic Residual codes; unclassified (1 source) Other specified postprocedural states; Translations: [History of conscious sedation] Onset: 04-29-2023 Episodic Spondylosis; intervertebral disc disorders; other back [...] Vital Sign Value Performing Clinician Del ortega 05-03-2023 14:58-0500 Body temperature 97.5 [degF] Cynthia Hawkinser OT/L Work Phone: [facility] 05-03-2023 14:58-0500 Diastolic blood pressure 68 mm[Hg] Cynthia Abrahamchler OT/L Work Phone: [facility] 05-03-2023 14:58-0500 Heart rate 81 /min Cynthia Abrahamchler OT/L Work Phone: [facility] 05-03-2023 14:58-0500 Respiratory rate 18 /min Cynthia Hawkinser OT/L Work Phone: [facility] 05-03-2023 14:58-0500 SaO2% (BldA) [Mass fraction] 92 % Cynthia Abrahamchler OT/L Work Phone: [facility] 05-03-2023 14:58-0500 Systolic blood pressure 140 mm[Hg] Cynthia Abrahamchler OT/L Work Phone: [facility] 05-03-2023 10:49-0500 Body temperature 97.39 [degF] Lisseth Halderman-Bowling PT Work Phone: [facility] 05-03-2023 10:49-0500 Diastolic blood pressure 78 mm[Hg] Lisseth Halderman-Bowling PT Work Phone: [facility] 05-03-2023 10:49-0500 Heart rate 80 /min Lisseth Halderman-Bowling PT Work Phone: [facility] 05-03-2023 10:49-0500 Respiratory rate 18 /min Lisseth Halderman-Bowling PT Work Phone: [facility] 05-03-2023 10:49-0500 SaO2% (BldA) [Mass fraction] 96 % Lisseth Halderman-Bowling PT Work Phone: [facility] 05-03-2023 10:49-0500 Systolic blood pressure 160 mm[Hg] Lisseth Halderman-Bowling PT Work Phone: [facility] 01-15-2023 12:47-0400 Body weight 98.43 kg Alejandra Valle MD Work Phone: [facility] 01-15-2023 12:47-0400 Diastolic blood pressure 72 mm[Hg] Alejandra Valle MD Work Phone: [facility] 01-15-2023 12:47-0400 Heart rate 72 /min Alejandra Valle MD Work Phone: [facility] 01-15-2023 12:47-0400 Respiratory rate 16 /min Alejandra Valle MD Work Phone: [facility] 01-15-2023 12:47-0400 Systolic blood pressure 128 mm[Hg] Alejandra Valle MD Work Phone: [facility] 10-02-2022 14:49-0400 Body temperature 97.9 [degF] Rizwana Praisler-Wood TOOL GRINDER OPERATOR EXTERNAL.ROLLER SKATE REPAIRER Work Phone: [facility] 10-02-2022 14:49-0400 Body weight 100.25 kg Rizwana Praisler-Wood TOOL GRINDER OPERATOR EXTERNAL.ROLLER SKATE REPAIRER Work Phone: [facility] 10-02-2022 14:49-0400 Diastolic blood pressure 72 mm[Hg] Rizwana Praisler-Wood TOOL GRINDER OPERATOR EXTERNAL.ROLLER SKATE REPAIRER Work Phone: [facility] 10-02-2022 14:49-0400 Heart rate 76 /min Rizwana Praisler-Wood TOOL GRINDER OPERATOR EXTERNAL.ROLLER SKATE REPAIRER Work Phone: [facility] 10-02-2022 14:49-0400 Respiratory rate 16 /min Rizwana Praisler-Wood TOOL GRINDER OPERATOR EXTERNAL.ROLLER SKATE REPAIRER Work Phone: [facility] 10-02-2022 14:49-0400 SaO2% (BldA) [Mass fraction] 96 % Rizwana Praisler-Wood TOOL GRINDER OPERATOR EXTERNAL.ROLLER SKATE REPAIRER Work Phone: [facility] 10-02-2022 14:49-0400 Systolic blood pressure 118 mm[Hg] Rizwana Praisler-Wood TOOL GRINDER OPERATOR EXTERNAL.ROLLER SKATE REPAIRER Work Phone: [facility] 09-11-2022 14:43-0400 Body temperature 97.5 [degF] Rizwana Praisler-Wood TOOL GRINDER OPERATOR EXTERNAL.ROLLER SKATE REPAIRER Work Phone: [facility] 09-11-2022 14:43-0400 Body weight 99.61 kg Rizwana Praisler-Wood TOOL GRINDER OPERATOR EXTERNAL.ROLLER SKATE REPAIRER Work Phone: [facility] 09-11-2022 14:43-0400 Diastolic blood pressure 62 mm[Hg] Rizwana Praisler-Wood TOOL GRINDER OPERATOR EXTERNAL.ROLLER SKATE REPAIRER Work Phone: [facility] 09-11-2022 14:43-0400 Heart rate 72 /min Rizwana Praisler-Wood TOOL GRINDER OPERATOR EXTERNAL.ROLLER SKATE REPAIRER Work Phone: [facility] 09-11-2022 14:43-0400 Respiratory rate 18 /min Rizwana Praisler-Wood TOOL GRINDER OPERATOR EXTERNAL.ROLLER SKATE REPAIRER Work Phone: [facility] 09-11-2022 14:43-0400 SaO2% (BldA) [Mass fraction] 95 % Rizwana Praisler-Wood TOOL GRINDER OPERATOR EXTERNAL.ROLLER SKATE REPAIRER Work Phone: [facility] 09-11-2022 14:43-0400 Systolic blood pressure 116 mm[Hg] Rizwana Praisler-Wood TOOL GRINDER OPERATOR EXTERNAL.ROLLER SKATE REPAIRER Work Phone: [facility] 07-12-2022 14:31-0400 Diastolic blood pressure 62 mm[Hg] Diomedes Riddle MD Work Phone: [facility] 07-12-2022 14:31-0400 Heart rate 71 /min Diomedes Riddle MD Work Phone: [facility] 07-12-2022 14:31-0400 Systolic blood pressure 133 mm[Hg] Diomedes Riddle MD Work Phone: [facility] 01-18-2022 14:36-0400 Diastolic blood pressure 58 mm[Hg] Diomedes Riddle MD Work Phone: [facility] 01-18-2022 14:36-0400 Heart rate 66 /min Diomedes Riddle MD Work Phone: [facility] 01-18-2022 14:36-0400 Systolic blood pressure 124 mm[Hg] Diomedes Riddle MD Work Phone: [facility] 11-25-2021 11:21-0400 Body temperature 97.59 [degF] Pauly Bowman TOOL GRINDER OPERATOR EXTERNAL.ROLLER SKATE REPAIRER Work Phone: [facility] 11-25-2021 11:21-0400 Body weight 97.07 kg Pauly Bowman TOOL GRINDER OPERATOR EXTERNAL.ROLLER SKATE REPAIRER Work Phone: [facility] 11-25-2021 11:21-0400 Diastolic blood pressure 76 mm[Hg] Pauly Reedk TOOL GRINDER OPERATOR EXTERNAL.ROLLER SKATE REPAIRER Work Phone: [facility] 11-25-2021 11:21-0400 Heart rate 69 /min Pauly Colby TOOL GRINDER OPERATOR EXTERNAL.ROLLER SKATE REPAIRER Work Phone: [facility] 11-25-2021 11:21-0400 Respiratory rate 18 /min Pauly Reedk TOOL GRINDER OPERATOR EXTERNAL.ROLLER SKATE REPAIRER Work Phone: [facility] 11-25-2021 11:21-0400 SaO2% (BldA) [Mass fraction] 97 % Paulyanjali Reedk TOOL GRINDER OPERATOR EXTERNAL.ROLLER SKATE REPAIRER Work Phone: [facility] 11-25-2021 11:21-0400 Systolic blood pressure 128 mm[Hg] Pauly Reedk TOOL GRINDER OPERATOR EXTERNAL.ROLLER SKATE REPAIRER Work Phone: [facility] 08-18-2021 09:42-0400 Body temperature 99.3 [degF] Diomedes Riddle MD Work Phone: [facility] 08-18-2021 09:42-0400 Diastolic blood pressure 61 mm[Hg] Diomedes Riddle MD Work Phone: [facility] 08-18-2021 09:42-0400 Heart rate 68 /min Diomedes Riddle MD Work Phone: [facility] 08-18-2021 09:42-0400 Systolic blood pressure 137 mm[Hg] Diomedes Riddle MD Work Phone: [facility] 07-25-2021 09:55-0400 Body weight 95.71 kg Alejandra Valle MD Work Phone: [facility] 07-25-2021 09:55-0400 Diastolic blood pressure 72 mm[Hg] Alejandra Valle MD Work Phone: [facility] 07-25-2021 09:55-0400 Heart rate 74 /min Alejandra Valle MD Work Phone: [facility] 07-25-2021 09:55-0400 Respiratory rate 16 /min Alejandra Valle MD Work Phone: [facility] 07-25-2021 09:55-0400 Systolic blood pressure 126 mm[Hg] Alejandra Valle MD Work Phone: [facility] 07-18-2021 12:12-0400 Body height 170.2 cm Ashleigh Marsh TOOL GRINDER OPERATOR EXTERNAL.ROLLER SKATE REPAIRER Work Phone: [facility] 07-18-2021 12:12-0400 Body temperature 98.4 [degF] Ashleigh Jacober TOOL GRINDER OPERATOR EXTERNAL.ROLLER SKATE REPAIRER Work Phone: [facility] 07-18-2021 12:12-0400 Body weight 94.85 kg Ashleigh Marsh TOOL GRINDER OPERATOR EXTERNAL.ROLLER SKATE REPAIRER Work Phone: [facility] 07-18-2021 12:12-0400 Diastolic blood pressure 62 mm[Hg] Ashleigh Jacober TOOL GRINDER OPERATOR EXTERNAL.ROLLER SKATE REPAIRER Work Phone: [facility] 07-18-2021 12:12-0400 Heart rate 71 /min Ashleigh Marsh TOOL GRINDER OPERATOR EXTERNAL.ROLLER SKATE REPAIRER Work Phone: [facility] 07-18-2021 12:12-0400 Respiratory rate 18 /min Ashleigh Marsh TOOL GRINDER OPERATOR EXTERNAL.ROLLER SKATE REPAIRER Work Phone: [facility] 07-18-2021 12:12-0400 SaO2% (BldA) [Mass fraction] 96 % Ashleigh Marsh TOOL GRINDER OPERATOR EXTERNAL.ROLLER SKATE REPAIRER Work Phone: [facility] 07-18-2021 12:12-0400 Systolic blood pressure 123 mm[Hg] Ashleigh Marsh TOOL GRINDER OPERATOR EXTERNAL.ROLLER SKATE REPAIRER Work Phone: [facility] 07-13-2021 13:10-0400 Body weight 93.12 kg Alejandra Valle MD Work Phone: [facility] 07-13-2021 13:10-0400 Diastolic blood pressure 74 mm[Hg] Alejandra Valle MD Work Phone: [facility] 07-13-2021 13:10-0400 Heart rate 71 /min Alejandra Valle MD Work Phone: [facility] 07-13-2021 13:10-0400 Respiratory rate 16 /min Alejandra Valle MD Work Phone: [facility] 07-13-2021 13:10-0400 Systolic blood pressure 134 mm[Hg] Alejandra Valle MD Work Phone: [facility] Encounters Encounter Date Encounter Type Care Provider Facility Start: 05-03-2023 End: 05-03-2023 Home visit Phyllis SUÁREZ Work Phone: [facility] Procedures Date Procedure Procedure Detail Performing Clinician Start: 04-13-2023 Antibody screen ALEJANDRA PERKINS Plan of Treatment Date Care Activity Detail Author Start: 10-12-2026 Urine microalbumin profile [facility] Start: 04-29-2024 Creatinine measurement Serum Creatinine [facility] Start: 04-27-2024 Complete blood count Hemoglobin/Hematocrit [facility] Start: 04-27-2024 Creatinine measurement Serum Creatinine [facility] Start: 04-13-2024 BP Controlled (<130/80) BP Controlled (<130/80) [facility] Start: 01-16-2024 Annual PCP Team Chronic Disease Visit Annual PCP Team Chronic Disease Visit [facility] Start: 01-16-2024 BP Controlled (<130/80) BP Controlled (<130/80) [facility] Start: 01-13-2024 Creatinine measurement Serum Creatinine [facility] Start: 01-13-2024 Hepatitis B surface antibody level LDL Cholesterol [facility] Start: 01-13-2024 Serum Creatinine Serum Creatinine [facility] Start: 10-12-2023 Hemoglobin A1c measurement HbA1C [facility] Start: 10-03-2023 BP CONTROLLED (<130/80) BP CONTROLLED (<130/80) [facility] Start: 09-12-2023 BP CONTROLLED (<130/80) BP CONTROLLED (<130/80) [facility] Start: 07-17-2023 End: 10-16-2023 ALBUMIN/CREAT RATIO RND UR ALBUMIN/CREAT RATIO RND UR Lab Routine Type 2 diabetes mellitus with stage 3a chronic kidney disease, without long-term current use of insulin (HCC) Expected: 07/17/2023 (Approximate), Expires: 10/16/2023 [facility] Work Phone: Immunizations Immunization Date Immunization Notes Care Provider Laura pederson 11-04-2021 influenza virus vaccine, unspecified formulation Ashley Garcia RN Work Phone: [facility] 08-10-2021 COVID-19 vaccine, booster dose (MODERNA) Mammography Coordinator [facility] 11-08-2020 influenza, high dose seasonal, preservative-free Alejandra Valle MD Work Phone: [facility] 06-16-2020 COVID-19 vaccine, fu ll dose (MODERNA) Alejandra Valle MD Work Phone: [facility] 05-19-2020 COVID-19 vaccine, fu ll dose (MODERNA) Alejandra Valle MD Work Phone: [facility] 11-10-2019 influenza, high dose seasonal, preservative-free Alejandra Valle MD Work Phone: [facility] 12-08-2018 influenza, high dose seasonal, preservative-free Alejandra Valle MD Work Phone: [facility] 12-01-2017 zoster vaccine recombinant Alejandra Valle MD Work Phone: [facility] 11-23-2017 influenza, high dose seasonal, preservative-free Alejandra Valle MD Work Phone: [facility] 11-13-2017 pneumococcal conjuga te vaccine, 13 valent Alejandra Valle MD Work Phone: [facility] 07-20-2017 zoster vaccine recombinant Alejandra Valle MD Work Phone: [facility] 11-20-2016 influenza, high dose seasonal, preservative-free Alejandra Valle MD Work Phone: [facility] 10-12-2016 tetanus and diphther ia toxoids, adsorbed, preservative free, for adult use (5 Lf of tetanus toxoid and 2 Lf of diphtheria toxoid) Alejandra Valle MD Work Phone: [facility] Work Phone: 12-27-2015 pneumococcal polysaccharide vaccine, 23 valent Alejandra Valle MD Work Phone: [facility] 11-18-2015 influenza, high dose seasonal, preservative-free Alejandra Valle MD Work Phone: [facility] 11-10-2014 influenza, high dose seasonal, preservative-free Alejandra Valle MD Work Phone: [facility] 02-20-2014 pneumococcal conjuga te vaccine, 13 valent Alejandra Valle MD Work Phone: [facility] Work Phone: 12-10-2013 influenza, high dose seasonal, preservative-free Alejandra Valle MD Work Phone: [facility] Work Phone: 12-02-2012 influenza virus vaccine, unspecified formulation Alejandra Valle MD Work Phone: [facility] 01-12-2012 zoster vaccine, live Alejandra perkins MD Work Phone: [facility] Work Phone: 12-06-2011 influenza, seasonal, injectable Alejandra Valle MD Work Phone: [facility] 11-23-2010 influenza virus vaccine, unspecified formulation Alejandra Valle MD Work Phone: [facility] Work Phone: 10-10-2010 hepatitis A vaccine, unspecified formulation Alejandra Valle MD Work Phone: [facility] Work Phone: 2010 influenza virus vaccine, unspecified formulation Alejandra Valle MD Work Phone: [facility] 01-08-2009 influenza virus vaccine, unspecified formulation Alejandra Valle MD Work Phone: [facility] 03-22-2007 influenza virus vaccine, unspecified formulation Alejandra Valle MD Work Phone: [facility] Work Phone: 03-22-2007 tetanus toxoid, redu nichole diphtheria toxoid, and acellular pertussis vaccine, adsorbed Alejandra Valle MD Work Phone: [facility] Work Phone: 01-18-2006 influenza virus vaccine, whole virus Alejandra Valle MD Work Phone: [facility] Work Phone: 12-26-2005 pneumococcal polysaccharide vaccine, 23 valent Alejandra Valle MD Work Phone: [facility] Work Phone: 03-27-1997 tetanus and diphther ia toxoids, adsorbed, preservative free, for adult use (2 Lf of tetanus toxoid and 2 Lf of diphtheria toxoid) Alejandra Valle MD Work Phone: [facility] Work Phone: Payers Date Payer Category Payer Medicare [employer] MEDICARE A ETNA MEDICARE PPO [id number] 2021-Present [phone] [address] [place] [address] PPO [id number] 2021 Medicare [id number] 2021 Medicare [id number] Social History Date Type Detail Facility Start: 03-08-2011 End: 01-08-2023 Tobacco smoking status NHIS Never smoked tobacco [facility] Start: 07-13-2021 End: 04-18-2023 Alcohol intake Current drinker of alcohol (finding) [facility] Start: 01-22-2020 End: 09-13-2022 History SDOH Alcohol Frequency 2 [facility] Start: 05-01-2019 History SDOH Alcohol Comment very rarely/ twice per year [facility] Start: 10-22-2019 History SDOH Financial 5 [facility] Start: 10-22-2019 End: 09-13-2022 History SDOH Food Worry 1 [facility] Start: 1945 Sex Assigned At Female [facility] Start: 07-03-2021 End: 01-18-2022 Exposure to SARS-CoV-2 (event) Not sure [facility] Start: 07-05-2021 End: 12-13-2021 Exposure to SARS-CoV-2 (event) Unable to assess [facility] Start: 03-08-2011 End: 01-08-2023 Tobacco use and exposure Smokeless tobacco non-user [facility] Work Phone: Start: 08-31-2022 End: 10-02-2022 History of Social function [facility] Work Phone: Start: 08-31-2022 End: 10-02-2022 Tobacco use panel [facility] Work Phone: Adult Depression Screening Assessment 0 [facility] Work Phone: (I/We) worried wheth er (my/our) food would run out before (I/we) got money to buy more. Never true [facility] Work Phone: Start: 12-10-2018 Gender identity Identifies as female gender (finding) [facility] Start: 12-10-2018 Sexual orientation Heterosexual (finding) [facility] How often to you hav e a drink containing alcohol? Monthly or less [facility] History of tobacco use Passive smoker [facility] Has the Plum Baby, or Like[employer] threatened to shut off services in your home in past 12Mo No [facility] Do you belong to any clubs or organizations such as bahai groups, unions, fraternal or athletic groups, or school groups? Yes [facility] Are you now , , , , never or living with a partner? [facility] How many standard dr inks containing alcohol do you have on a typical day? 1 or 2 [facility] How often do you hav e 6 or more drinks on 1 occasion? Never [facility] Do you feel stress - tense, restless, nervous, or anxious, or unable to sleep at night because your mind is troubled all the time - these days [OSQ] Not at all [facility] Medical Equipment Procedure Code Equipment Code Equipment Origin al Text Equipment Identifier Dates Biolox Delta Mod ular Ceramic Head 36mm W/3mm Neck Type 1 Taper [id number] Start: 01-15-2020 Stem Taperloc 13 3d 7 High Offset Taper Pps 136mm Femoral Type 1 Full - [id number] Start: 01-15-2020 Liner G7 36mm D Neutral Arcomxl Acetabular Hip - [id number] Start: 01-15-2020 Shell G7 50mm D Hemisphere Offset Porous Acetabular Limit Hole Color Coded - [id number] Start: 01-15-2020 Screw G7 6.5mm D ome 20mm Acetabular Low Profile Hip - [id number] Start: 01-15-2020 [id number], [id number] - [id number]_[facility] Start: 07-19-2021 Biolox Delta Mod ular Ceramic Head 36mm W/3mm Neck Type 1 Taper [id number] Start: 04-26-2023 Shell G7 50mm D Offset Hemisphere Osseoti Acetabular 3 Hole Limit Hip - [id number] Start: 04-26-2023 Liner Acetabular Size D [id number] Hip Longevity Neutral G7 - [id number] Start: 04-26-2023 Stem Taperloc 13 3d 7 High Offset Full Profile Taper Pps 134mm Femoral Type - [id number]_[facility] Start: 04-26-2023 Screw G7 6.5mm D ome 20mm Acetabular Low Profile Hip - [id number]_[facility] Start: 04-26-2023 Goals Date Patient Goal Desired Activity /State Personal health goal Clinical Notes 01-13-2020 to 05-03-2023 Telephone Encounter - Lindy Gonzalez RN - 05/03/2023 5:13 PM ESTTelephone Encounter - Alejandra Valle MD - 05/03/2023 4:49 PM Ashley Wagner RN - 03/01/2023 10:51 AM ESTPatient Instructions Note Date & Type Note Facility 05-03-2023 Miscellaneous Notes Spoke with patient. Given message from provider's office. Patient verbalizes understanding. She states she just spoke with CIARA Ferguson who tells her she may be placed in a SNF tomorrow. She says she will contact neighbor to stay with her tonight. Lindy Gonzalez RN Noted; I agree that if she does not feel safe at home then she would need to be evaluated in the ER. Alejandra Valle MD Patient calling to ask what the status is of placement in SNF due to recent fall at home after surgery with readmission to hospital. Advised her that [employer] G[employer] faxed her information per Phyllis Vega BEATER LEAD note: 05/03/23 3:44 PM - 3;47 PM SALES SERVICE PROMOTER called the pt. and informed her that SALES SERVICE PROMOTER spoke to Jacki in Admissions with the [facility] and she stated that [employer] will not admit from home for skilled placement. SALES SERVICE PROMOTER informed the pt. that SALES SERVICE PROMOTER spoke to Moon with Trans[facility] Unit in [facility] and she stated that it was hard to get pt. admiited under [employer]. SALES SERVICE PROMOTER stated that she also spoke to Leann with [facility] and she stated to fax information. SALES SERVICE PROMOTER informed the pt. she faxed her information and Therapy notes to [facility] in [facility] and to [facility]. The pt. gave the phone to Cynthia Cruz OT to talk with SALES SERVICE PROMOTER regarding her going for skilled placement. SALES SERVICE PROMOTER informed Cynthia on phone calls made and information faxed to Trans[facility] Unit in [facility] and [facility]. SALES SERVICE PROMOTER will continue to follow-up. Patient asks what if I feel unsafe at home as if I'm going to fall ? Advised patient to go to ER to be evaluated. Lindy Gonzalez, DESTINEE documented in this encounter [facility] 05-03-2023 Miscellaneous Notes 05/03/23 3:35 PM Email from Cynthia Cruz OT that OT Eval completed. 05/03/23 3:39 PM SALES SERVICE PROMOTER Emailed [facility] MENDOZA Rodríguez, the pt. Mateo Bedoya is looking to get admitted into Transitional Care Unit in [facility]. Please fax the pt.'s demographics, history and physical, current med list , PT Eval and OT Eval to attention: Moon in Admissions Fax number [phone]. Thank You, 05/03/23 3:40 PM SALES SERVICE PROMOTER Emailed [facility] HIM Release - Marcos, the pt. Mateo Bedoya is looking to get admitted into [facility] . Please fax the OT Eval to attention: Leann Fax number [phone]. Thank You, 05/03/23 3:44 PM - 3;47 PM SALES SERVICE PROMOTER called the pt. and informed her that SALES SERVICE PROMOTER spoke to Jacki in Admissions with the [facility] and she stated that [employer] will not admit from home for skilled placement. SALES SERVICE PROMOTER informed the pt. that SALES SERVICE PROMOTER spoke to Moon with Trans[facility] Unit in [facility] and she stated that it was hard to get pt. admiited under [employer]. SALES SERVICE PROMOTER stated that she also spoke to Leann with [facility] and she stated to fax information. SALES SERVICE PROMOTER informed the pt. she faxed her information and Therapy notes to Trans[facility] Unit in [facility] and to [facility]. The pt. gave the phone to Cynthia Cruz OT to talk with SALES SERVICE PROMOTER regarding her going for skilled placement. SALES SERVICE PROMOTER informed Cynthia on phone calls made and information faxed to Transitional Care Unit in [facility] and [facility]. SALES SERVICE PROMOTER will continue to follow-up. documented in this encounter [facility] 05-03-2023 Miscellaneous Notes SITUATION: only patient present during today's visit. patient reports the following since the last homecare visit: medications/allergies--no changes, no fall. BACKGROUND: Diagnoses or reason for home care: Left hip osteoarthritis S/P ARTHROPLASTY REPLACE JOINT TOTAL HIP (Left) 04/26/23, AND Left hip dislocation S/P CLOSED REDUCTION HIP (Left) 04/29/23; Pt had THR and was discharged home and fell, dislocation hip, returned to hospital was unable to reduce in ER and was taken to Sx. 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 Reviewed and explained homecare services. Plan of care, goals and visit frequency developed, reviewed, and agreed upon with patient and/or caregiver. Patient identified goals: Be able to take care of self . Patient will benefit from continued occupational therapy to address the following deficits functional activity including I/ADLs as evidenced by score on Modified Marlene Index 35/100. Pt is at home requiring assist with all ADL except feeding. I mostly in bed d/t pain and inability to move. Pt lives at home with elderly spouse who is unable to lift or assist pt with transfers, no other cg is present. Pt is best cared for in rehab facility or SNF to increase her ability to complete self care and rehab from THR w hip dislocation. Current Discharge Plan:remain in community with/without caregiver support. Anticipate discharge by 05/04/23 RECOMMENDATION: Plan for next visit to focus on toileting. See intervention summary for intervention/education details. documented in this encounter [facility] 05-03-2023 Miscellaneous Notes 05/03/23 9:51 AM Email from Lisseth Pelletier PT - I included you in a t/e for this pt. She really really wants to go to a facility. I am with Mrs Bedoya to admit her to home care and they are not managing well at home. He pain is not controlled and she is taking her meds every 3 hours vs every 6. She is struggling to move. Her spouse is 80 and he cannot assist her to move. They are struggling with basic things like donning the immobilizer and even getting her up to go to the bathroom . She is not sleeping and is requesting to go to a facility. I see that case management tried to get her in to acute rehab and they were denied . She is asking if she can go to a TCU or SNF. If feel that a short stay would be very beneficial until she can better care for herself .( I have included our social insurance analyst on this message to assist with facilitating this if you are in agreement ) 05/03/23 10:05 AM - 10:07 AM SALES SERVICE PROMOTER called Lisseth Pelletier PT and she was with the pt. The pt. would like to see if she could get admitted to the Transitional Care Unit in [facility]. SALES SERVICE PROMOTER will call and follow-up. 05/03/23 10:08 AM - 1:11 AM SALES SERVICE PROMOTER called the Transitional Care Unit in [facility] and spoke to Socorro regarding possible placement for the pt. Socorro informed SALES SERVICE PROMOTER that she needed to talk with Admissions and was transferred to Moon Bhandari in Admissions and SALES SERVICE PROMOTER left a message regarding SALES SERVICE PROMOTER was calling regarding a possible placement for the pt. Moon's message stated you can fax referral to Fax number [phone]. documented in this encounter [facility] 05-03-2023 Miscellaneous Notes SITUATION: only patient present( spouse is in the house but did not participate in the session until asked ) during today's visit. patient reports she is miserable and needs to go to a facility unitl she can care for herself. Her 80 yr old spouse is not able to assist her . Pt requires assistance to get her pain pill schedule set up . Spouse required instruction on how to manage the leg immobilizer and making sure that she has ice and he elevates the leg on a pillow Brief hx: L THR 04/26 released on 04/27. On 04/29 she fell getting out of bed. Taken to [facility] ER where they were unsuccessful in reducing the dislocation. She was transferred to [facility] where they were again unsuccessful in reducing it in the ER. Pt was taken to the OR where they were able to do a closed reduction She was a late release on 05/01 so they stayed in the [facility] hotel and kris came home 05/02. Since that time it has been a struggle to control her pain and her spouse is not able to manage to assist her physically to get her up and down. 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 Abduction pillow while in bed Wound location: L Hip, Wound care: Aquacel to be left on until postop day 7-10 ASSESSMENT: Patient evaluated by [facility] Homecare physical therapy. Reviewed and explained homecare services. Plan of care, goals, and visit frequency developed, reviewed, and agreed upon with patient and/or caregiver. Post op bandage removed today. Incision clean, dry and healing well. With pts permission a photo was uploaded for MD to review Patient Goal: walk without pain Patient will benefit from continued physical therapy to address the following deficits: strength, balance, gait, endurance, transfers, stair negotiation and bed mobility. Current Discharge Plan: outpatient rehab. Anticipate discharge by tbd. RECOMMENDATION: Next visit to focus on ther ex, gait, balance, transfers, steps Agreeable to PT/OT. See intervention summary for intervention/education details. documented in this encounter [facility] 05-01-2023 Note HNO ID: [id number] Author: VIKTORIYA ARNETT RN Service: Care Management Author Type: Registered Nurse Type: Care Mgt Progress Note Filed: 05/01/2023 12:07 Note Text: CARE MANAGEMENT DISCHARGE NOTE SERVICE DATE: May 01, 2023 SERVICE TIME: 12:01 PM Admission Date: 04/29/2023 LOS: 0 days Discharge Arrangement Services Arranged Provider Name: [facility] Caregiver Assessment Transportation Arrangements Handoff Communication: Additional Information: Patient aware of home care with [facility] CM discussed with patient yesterday SIGNATURE: Viktoriya Arnett RN PATIENT NAME: Mateo Bedoya DATE: May 01, 2023 TIME: 12:00 PM CONTACT #: N/A [facility] 05-01-2023 Note HNO ID: [id number] Author: SURYA ELLIOTT PA-C Service: Orthopaedic Surgery Author Type: Physician Shearer Operator Type: Plan of Care Filed: 05/01/2023 10:45 Note Text: Orthopedic Plan of Care Visit SERVICE DATE: May 01, 2023 SERVICE TIME: 1025 Type of Surgery/Reason for Admission: s/p * CLOSED REDUCTION HIP - General w/ Dr. Boudreaux on 04/29/2023) INTERVAL: Patient is observed in NAD, AANDO lying up-right in bed after eating breakfast. Patient explains that her pain is now a 1/10 and drastically improved compared to prior to her procedure. She is hopeful to discharge today. Patient has completed necessary therapy benchmarks for a safe discharge home. Patient without additional concerns at this time. Most recent labs, I/Os, VS, and notes reviewed for this visit. Principal Problem: Dislocated hip, left, initial encounter ([facility]) Obesity w/ BMI 30.0 - 34.9 (adult) (wt in last 30 days) POA: Yes Other present diagnoses: CKD 3, Stress incontinence, Carotid stenosis, T2DM, CAD Hospital AND Post-op Plan: - formal left hip/pelvis xray completed this morning - Weightbearing: As tolerated left lower extremity - Strict posterior hip precautions. Abduction pillow while in bed. KI placed. - Dressing: Aquacel - Drains: N/A - Kumar: Per nursing protocol - Diet: regular - HLIV when tolerating adequate PO - DVT Prophylaxis: May resume home aspirin today. She can restart plavix tomorrow (post op day 5) - Consults- PT/OT/CM - PT/OT hotline paged - Med Rec completed, DC Instructions reviewed, DC order placed Disposition- Discharge home THIS MORNING with [facility]. Patient and spouse staying at [facility] and will need wheelchair transport there. Plan of care was completed with provider, patient and RN. All questions and concerns regarding the plan were addressed to the satisfaction of all participants. Thank you for the opportunity to participate in this patient's care. Surya Elliott PA-C I Orthopedic Surgery [facility] [place] [phone] For [place] floor related issues or questions Sunday[place] [phone] At all other times, or if urgent, please page the orthopaedic on-call resident at: [phone]) for [place] patients [facility] 05-01-2023 Note HNO ID: [id number] Author: ?, ?, ? Service: Care Management Author Type: ? Type: Care Mgt Progress Note Filed: 05/01/2023 10:28 Note Text: CARE MANAGEMENT PROGRESS NOTE SERVICE DATE: 05/01/2023 SERVICE TIME: 10:28 AM LOS: 0 days IMM Follow Up Copy Given: Yes Copy given to:: Patient Inpatient Pharmacist Inpatient Pharmacist Name/Relationship: , Jared Method: In Person SIGNATURE: Alexandraindu Arreola PATIENT NAME: Mateo Bedoya DATE: May 01, 2023 TIME: 10:28 AM PAGER/CONTACT #: [phone] [facility] 05-01-2023 Note HNO ID: [id number] Author: JOHNNY GONZALEZ MD Service: Orthopaedic Surgery Author Type: Resident Type: Progress Notes Filed: 05/01/2023 06:18 Note Text: Inpatient Progress Note Orthopaedic Surgery If Urgent AND unable to reach [id number] OR If 5p-7a/Wknd: p2BONE Assessment 78 year old female who is s/p closed reduction of left prosthetic hip dislocation in the OR by Dr. Boudreaux on 04/29/2023. The patient well overnight, pain is well-controlled. She is cleared for discharge today Plan -Post reduction Xray negative for fracture or dislocation - Weightbearing: As tolerated left lower extremity - Strict posterior hip precautions. Abduction pillow while in bed - Dressing: aquacel - Drains: nones - Kumar: Per nursing protocol - Diet: regular - MIVF while NPO - HLIV when tolerating adequate PO - DVT Prophylaxis: May resume home aspirin today. She can restart plavix tomororw (post op day 5) - Antibiotics: none - Cultures: none Dispo: Medically clear for discharge home today Plan of care discussed with: Provider, RN, Patient. Rounding Subjective No o/n issues Pain well controlled. Denies nausea, vomiting, chest pain, shortness of breathe. Objective Blood pressure (!) 128/43, pulse 85, temperature 36.6 ?C (97.9 ?F), temperature source Oral, resp. rate 18, height 171.5 cm (5' 7.5 ), weight 95.7 kg (211 lb), SpO2 93%. Physical Exam AAOx3, NAD Breathing comfortably at rest RRR to peripheral palpation Left Lower Extremity Inspection: Dressing c/d/i. Compartments: Soft, compressible Sensory: SILT to SP/DP/T/S/S distributions Motor: fires DF/PF/EHL Vascular: DP 2+ to palp; CR < 2 sec; foot warm AND well-perfused Lab Review Creatinine (mg/dL) Date Value 04/29/2023 0.83 04/27/2023 1.05 (H) 04/27/2023 1.27 (H) 12/22/2020 1.07 (H) 08/31/2020 1.10 (H) 05/28/2020 1.04 (H) Creatinine (POCT) (mg/dL) Date Value 06/15/2021 1.10 Sodium (mmol/L) Date Value 04/29/2023 137 04/27/2023 142 04/27/2023 139 12/22/2020 142 08/31/2020 140 05/28/2020 140 Potassium (mmol/L) Date Value 04/29/2023 3.6 (L) 04/27/2023 3.7 04/27/2023 3.8 12/22/2020 3.6 (L) 08/31/2020 3.9 05/28/2020 3.9 Hemoglobin (g/dL) Date Value 04/29/2023 9.4 (L) 04/27/2023 10.1 (L) 04/13/2023 13.8 01/17/2020 8.1 (L) 01/16/2020 10.3 (L) 01/15/2020 10.6 (L) Hematocrit (%) Date Value 04/29/2023 28.4 (L) 04/27/2023 31.1 (L) 04/13/2023 42.4 01/17/2020 26.2 (L) 01/16/2020 32.4 (L) 01/15/2020 32.4 (L) WBC (k/uL) Date Value 04/29/2023 15.82 (H) 04/27/2023 17.11 (H) 04/13/2023 10.80 01/17/2020 16.35 (H) 01/16/2020 26.57 (H) 01/15/2020 26.36 (H) PT INR (no units) Date Value 10/21/2019 1.0 01/01/2002 0.95 INR (no units) Date Value 04/29/2023 1.0 Glucose, Point of Care (mg/dL) Date Value 04/29/2023 185 (A) 04/29/2023 211 (A) 07/19/2021 132 (A) 07/19/2021 131 (A) 01/17/2020 139 (A) 01/17/2020 150 (A) Please scroll above for Assessment AND Plan. Plan of care discussed with: Provider, RN, Patient. Johnny Gonzalez MD PGY-3 Resident Orthopaedic Surgery Please page [phone]) from 5p-6a and on weekends for any issues. [facility] 04-30-2023 Note HNO ID: [id number] Author: VIKTORIYA ARNETT RN Service: Care Management Author Type: Registered Nurse Type: Care Mgt Initial Assessment Filed: 04/30/2023 13:56 Note Text: CARE MANAGEMENT: ASSESSMENT AND DISCHARGE PLAN SERVICE DATE: April 30, 2023 SERVICE TIME: 12:15 PM PCP: Alejandra Valle MD Primary Contact: Extended Emergency Contact Information Primary Emergency Contact: Jared Bedoya Address: [address] [place] [address] [facility] Mobile Relation: Spouse Secondary Emergency Contact: Jared Bedoya III Address: [address] [place] [address] [facility] Mobile Relation: Son Admission Status: Observation Insurance Provider: [employer] PPO Discharge Planning requested by: Potential Transition Plans Advance Directives Current Living Arrangements and Support Lives with: Type of Residence: Support: Current Services/Equipment Discharge Planning Patient Goal(s): [place] of Choice Explained: Are you interested in bedside delivery of your medications? No Discharge Planning Participant(s): Patient/Family Comments: Caregiver Assessment: Transport at Discharge: Spouse will provide transportation. Needs Prior to Discharge: Post-Acute Discharge Plan: Home PT with [facility] CM met patient discussed that she does not meet criteria for AR, received denial by Nava MEEHAN. SIGNATURE: Viktoriya Arnett RN PATIENT NAME: Mateo Bedoya DATE: April 30, 2023 TIME: 1:53 PM CONTACT #: N/A [facility] 04-30-2023 Note HNO ID: [id number] Author: SURYA ELLIOTT PA-C Service: Orthopaedic Surgery Author Type: Physician Shearer Operator Type: Plan of Care Filed: 04/30/2023 14:44 Note Text: Orthopedic Plan of Care Visit SERVICE DATE: April 30, 2023 SERVICE TIME: 918 Type of Surgery/Reason for Admission: s/p * CLOSED REDUCTION HIP - General w/ Dr. Boudreaux on 04/29/2023) INTERVAL: Patient is observed in NAD, AANDO lying up-right in bed eating breakfast. Patient explains that her pain is now a 1/10 and drastically improved compared to prior to her procedure. She is hopeful to discharge tomorrow. @1435- Patient observed sleeping in the room. Upon being awakened, she explains that she is wiped out and can't work with therapy again. She is agreeable to work with therapy tomorrow in anticipation that she will discharge home with [facility]. AR was not recommended nor approved. Patient immediately fell back asleep. Patient has many steps to navigate at home and was able to stay on second floor for 2 weeks after her original Right JOE. Patient without additional concerns at this time. Most recent labs, I/Os, VS, and notes reviewed for this visit. Principal Problem: Dislocated hip, left, initial encounter ([facility]) Obesity w/ BMI 30.0 - 34.9 (adult) (wt in last 30 days) POA: Yes Other present diagnoses: CKD 3, Stress incontinence, Carotid stenosis, T2DM, CAD Hospital AND Post-op Plan: - formal left hip/pelvis xray completed this morning - Weightbearing: As tolerated left lower extremity - Strict posterior hip precautions. Abduction pillow while in bed - Dressing: Aquacel - Drains: N/A - Kumar: Per nursing protocol - Diet: regular - HLIV when tolerating adequate PO - DVT Prophylaxis: May resume home aspirin today. She can restart plavix tomorrow (post op day 5) - Consults- PT/OT/CM - PT/OT hotline paged - Med Rec to be completed, DC Instructions reviewed, DC order pending Disposition- Anticipated discharge home TOMORROW with [facility] pending final therapy Plan of care was completed with provider, patient and RN. All questions and concerns regarding the plan were addressed to the satisfaction of all participants. Thank you for the opportunity to participate in this patient's care. Surya Elliott PA-C I Orthopedic Surgery [facility] [place] [phone] For [place] floor related issues or questions Sunday[place] [phone] At all other times, or if urgent, please page the orthopaedic on-call resident at: [phone]) for [place] patients [facility] 04-30-2023 Note HNO ID: [id number] Author: JOHNNY GONZALEZ MD Service: Orthopaedic Surgery Author Type: Resident Type: Progress Notes Filed: 04/30/2023 06:27 Note Text: Inpatient Progress Note Orthopaedic Surgery If Urgent AND unable to reach [phone] OR If 5p-7a/Wknd: p2BONE Assessment 78 year old female who is s/p closed reduction of left prosthetic hip dislocation in the OR by Dr. Boudreaux on 04/29/2023. The patient well overnight, pain is well-controlled. She is cleared for discharge today Plan -needs formal left hip/pelvis xray this morning - Weightbearing: As tolerated left lower extremity - Strict posterior hip precautions. Abduction pillow while in bed - Dressing: aquacel - Drains: nones - Kumar: Per nursing protocol - Diet: regular - MIVF while NPO - HLIV when tolerating adequate PO - DVT Prophylaxis: May resume home aspirin today. She can restart plavix tomororw (post op day 5) - Antibiotics: none - Cultures: none Dispo: Medically clear for discharge home today after formal xrays of left hip are complete Plan of care discussed with: Provider, RN, Patient. Rounding Subjective No o/n issues Pain well controlled. Denies nausea, vomiting, chest pain, shortness of breathe. Objective Blood pressure (!) 137/47, pulse 85, temperature 36.9 ?C (98.4 ?F), temperature source Oral, resp. rate 18, height 171.5 cm (5' 7.5 ), weight 95.7 kg (211 lb), SpO2 91%. Physical Exam AAOx3, NAD Breathing comfortably at rest RRR to peripheral palpation Left Lower Extremity Inspection: Dressing c/d/i. Compartments: Soft, compressible Sensory: SILT to SP/DP/T/S/S distributions Motor: fires DF/PF/EHL Vascular: DP 2+ to palp; CR < 2 sec; foot warm AND well-perfused Lab Review Creatinine (mg/dL) Date Value 04/29/2023 0.83 04/27/2023 1.05 (H) 04/27/2023 1.27 (H) 12/22/2020 1.07 (H) 08/31/2020 1.10 (H) 05/28/2020 1.04 (H) Creatinine (POCT) (mg/dL) Date Value 06/15/2021 1.10 Sodium (mmol/L) Date Value 04/29/2023 137 04/27/2023 142 04/27/2023 139 12/22/2020 142 08/31/2020 140 05/28/2020 140 Potassium (mmol/L) Date Value 04/29/2023 3.6 (L) 04/27/2023 3.7 04/27/2023 3.8 12/22/2020 3.6 (L) 08/31/2020 3.9 05/28/2020 3.9 Hemoglobin (g/dL) Date Value 04/29/2023 9.4 (L) 04/27/2023 10.1 (L) 04/13/2023 13.8 01/17/2020 8.1 (L) 01/16/2020 10.3 (L) 01/15/2020 10.6 (L) Hematocrit (%) Date Value 04/29/2023 28.4 (L) 04/27/2023 31.1 (L) 04/13/2023 42.4 01/17/2020 26.2 (L) 01/16/2020 32.4 (L) 01/15/2020 32.4 (L) WBC (k/uL) Date Value 04/29/2023 15.82 (H) 04/27/2023 17.11 (H) 04/13/2023 10.80 01/17/2020 16.35 (H) 01/16/2020 26.57 (H) 01/15/2020 26.36 (H) PT INR (no units) Date Value 10/21/2019 1.0 01/01/2002 0.95 INR (no units) Date Value 04/29/2023 1.0 Glucose, Point of Care (mg/dL) Date Value 04/29/2023 185 (A) 04/29/2023 211 (A) 07/19/2021 132 (A) 07/19/2021 131 (A) 01/17/2020 139 (A) 01/17/2020 150 (A) Please scroll above for Assessment AND Plan. Plan of care discussed with: Provider, RN, Patient. Johnny Gonzalez MD PGY-3 Resident Orthopaedic Surgery Please page [phone]) from 5p-6a and on weekends for any issues. [facility] 04-29-2023 Note HNO ID: [id number] Author: JORGE ALBERTO SUTHERLAND MD Service: ? Author Type: Anesthesiologist Type: Anesthesia Procedure Notes Filed: 04/29/2023 17:42 Note Text: ANESTHESIOLOGY PROCEDURE NOTE Airway General Information Procedure Start Time/Medication Administration: 04/29/2023 5:36 PM Patient location during procedure: OR Patient identity confirmed: arm band Staffing KNITTING MACHINE MECHANIC: Ara Byrne APRN.KNITTING MACHINE MECHANIC Performed by: JONATAN Indications and Patient Condition Indications for airway management: anesthesia Preoxygenated: yes anesthesia circuit Patient position: sniffing Method: sleep Difficult Mask: No Final Airway Details Final airway type: endotracheal airway Final Endotracheal Airway: ETT Cuffed: yes Successful intubation technique: video laryngoscopy Devices used: [employer] Endotracheal tube insertion site: oral Blade: Jenni Blade size: #3 ETT size (mm): 7.0 Measured from: lips Measurement (cm): 22 Placement verified by: capnometry Cormack-Lehane Classification: grade I - full view of glottis Number of attempts at approach: 1 Airway not difficult SIGNATURE: Jorge Alberto Sutherland MD PATIENT NAME: Mateo Bedoya DATE: April 29, 2023 TIME: 5:41 PM CSN: [id number] [facility] 04-29-2023 Note HNO ID: [id number] Author: ULISSES RODRIGUEZ RT(R) Service: ? Author Type: Technologist Type: Progress Notes Filed: 04/29/2023 16:11 Note Text: xray: chest [facility] 04-27-2023 Note HNO ID: [id number] Author: JAVIER DEMARCO PA-C Service: Orthopaedic Surgery Author Type: Physician Shearer Operator Type: Plan of Care Filed: 04/27/2023 14:12 Note Text: Orthopaedic plan of care Plan of care discussed with: Provider, RN, Patient. POD 1 s/p left total hip arthroplasty Patient sitting up in bed. She states that she has a lot of pain this morning. She went all night without any pain medication. She states that the tramadol does not seem to be helping her pain. She had her hip replaced in 2019 with and tolerated oxycodone. I have switched her medication to see if she tolerates it and if it controls her pain better. I have also added a muscle relaxer as well. Patient typically takes aspirin 325mg and plavix for a stent in carotid artery. She can continue her aspirin 325mg daily starting POD 1. She will hold her plavix until POD 5. She denies any chest pain, shortness of breath or lightheadedness BP 126/57 Pulse 86 Temp 36.9 ?C (98.4 ?F) (Oral) Resp 18 Ht 171.5 cm (5' 7.52 ) Wt 98 kg (216 lb) LMP (LMP Unknown) SpO2 97% BMI 33.31 kg/m? Plan: -Mild acute kidney injury-started IV maintenance fluids and bolus 500 mL. -Repeat BMP in process - Weightbearing: As tolerated left lower extremity -Posterior precautions - Dressing: Aquacel to be left on until postop day 7-10 - Drains: None - Kumar: Per nursing protocol - Diet: Regular - MIVF while NPO - HLIV when tolerating adequate PO - DVT Prophylaxis: 325mg ASA BID, SCDs -hold plavix until POD 5 - Antibiotics: Perioperative Ancef - Cultures: None -PT/OT consulted and skilled her for home PT -Discussed with CM -F2F -anticipate discharge today Principal Problem: OA (osteoarthritis) of hip Obesity w/ BMI 30.0 - 34.9 (adult) (wt in last 30 days) POA: Yes Javier Demarco PA-C [facility] 04-27-2023 Note HNO ID: [id number] Author: JOHNNY GONZALEZ MD Service: Orthopaedic Surgery Author Type: Resident Type: Progress Notes Filed: 04/27/2023 06:10 Note Text: Inpatient Progress Note Orthopaedic Surgery If Urgent AND unable to reach [phone] OR If 5p-7a/Wknd: p2BONE Assessment 78 year [...] PGY-3 Resident Orthopaedic Surgery Please page [phone]) from 5p-6a and on weekends for any issues. [facility] 04-26-2023 Note HNO ID: [id number] Author: GRICEL LOO RN Service: ? Author Type: Registered Nurse Type: Progress Notes Filed: 04/26/2023 20:21 Note Text: At 14:10 PM, Called DESTINEE Lozoya, @ #[phone], in PACU, and received report. At 14:43 PM, Patient admitted to the nursing division. [facility] 04-26-2023 Miscellaneous Notes Hello there! (Spoke with: Jared, spouse ) My name is LAVON Agudelo and I'm calling from [facility]. Your doctor wants to [...] make your transition home smooth. A therapist (marcos vaughan- nurse or therapist ) will visit you [...] address will we be seeing you at? [address] [address] Do you have any upcoming appointments or things we need to schedule around? Unsure When they call or text, the number might be unfamiliar or blocked. If they leave a message, please reply so we can plan your visit. Homecare helps with your recovery. During the first visit, the therapist (marcos vaughan- nurse or therapist) will talk with you, [...] year? YES Where did you get it? LAVON Maldonado 04/26/2023 3:31 PM documented in this encounter [facility] 04-26-2023 Note HNO ID: [id number] Author: RISSA ALMEIDA SRNA Service: ? Author [...] April 26, 2023 TIME: 8:05 AM CSN: [id number] [facility] 04-26-2023 Note HNO ID: [id number] Author: RISSA ALMEIDA SRNA Service: ? 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 Author Type: Registered Nurse Type: Progress Notes Filed: 04/05/2023 15:19 Note Text: CD Telephonic Outreach Provider Action/FYI N/A Contacted for: [...] daily weight at home? No Based on solar site assessment specialist, the following disposition is advised: No symptoms or symptoms present, not severe. Routed to: No Action Needed RUTHIE Education Provided this Outreach: No Mrs. Bedoya is preparing for her left hip replacement on 04/26/23. Prepping and freezing meals, getting paperwork in order. No questions or concerns at this time. Ashley Garcia RN April 05, 2023 3:18 PM [facility] 04-05-2023 Note Patient Outreach (AM [facility]) MATEO BEDOYA V ([id number]) 1945 F Date Time Provider Department 04/05/23 ASHLEY GARCIA During your visit today, we recorded the following information about you: Ashley Garcia RN 04/05/2023 3:19 PM Signed CDM Telephonic Outreach Provider Action/FYI [...] daily weight at home? No Based on solar site assessment specialist, the following disposition is advised: No symptoms [...] as of 01/12/2022: Changed all Rx's to [facility]. 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] 05/10/2004 Essential hypertension, benign [I10] 12/16/2005 Elevated glucose [R73.09] 05/24/2012 Hypothyroidism [E03.9] 05/24/2012 Hyperlipidemia, mixed [E78.2] 05/24/2012 Female stress incontinence [N39.3] 08/23/2012 Acute medial meniscus tear of right knee [S83.2*10/23/2013 12/27/2020 Arthritis of knee, right [M17.11] 07/09/2014 Coronary artery disease involving sun'aq clay*01/09/2019 Carotid stenosis, asymptomatic, bilateral [I65.*10/02/2019 Carotid [...] Encounter Status:Closed by ASHLEY GARCIA on 04/05/23 [facility] 04-04-2023 Note HNO ID: [id number] Author: ASHLEY GARCIA RN Service: ? Author Type: Registered Nurse Type: Progress Notes Filed: 04/04/2023 15:10 Note Text: CD Telephonic Outreach Provider Action/FYI N/A Contacted for: Routine Telephonic Outreach Contact made with patient: Yes Patient identified by name and date of . Discussed care with patient-she is unable to talk right now. Requests call back tomorrow. [facility] 04-04-2023 Note Patient Outreach (AM [facility]) MATEO BEDOYA V ([id number]) 1945 F Date Time Provider Department 04/04/23 [facility] During your visit today, we recorded the following information about you: Ashley Garcia RN 04/04/2023 3:10 PM Signed [facility] Telephonic Outreach Provider Action/FYI N/A Contacted for: [...] as of 01/12/2022: Changed all Rx's to [facility] Pharm[facility]. 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.] Betty Onofre LPN. documented in this encounter [facility] 03-01-2023 Note Patient Outreach (AM [facility]) MATEO BEDOYA V ([id number]) 1945 F Date Time Provider Department 03/01/23 ASHLEY GARCIA During your visit today, we recorded the following information about you: Ashley Garcia, DESTINEE 03/01/2023 11:34 AM Signed CD Telephonic Outreach Provider Action/FYI N/A Contacted for: [...] but is friends with the head of Psychiatric counseling and also with the head of Psychiatric Hospice. She states can reach out to them if she feels grief counseling is needed. States she is having a left hip replacement with Dr. Shin on 04/26/23. Based on solar site assessment specialist, the following disposition is advised: No symptoms [...] as of 01/12/2022: Changed all Rx's to [facility] Pharm[facility]. 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] 05/10/2004 Essential hypertension, benign [I10] 12/16/2005 Elevated glucose [R73.09] 05/24/2012 Hypothyroidism [E03.9] 05/24/2012 Hyperlipidemia, mixed [E78.2] 05/24/2012 Female stress incontinence [N39.3] 08/23/2012 Acute medial meniscus tear of right knee [S83.2*10/23/2013 12/27/2020 Arthritis of knee, right [M17.11] 07/09/2014 Coronary artery disease involving sun'aq clay*01/09/2019 Carotid stenosis, asymptomatic, bilateral [I65.*10/02/2019 Carotid artery stenosis [I65.29] 10/21/2019 07/11/2021 Post-operative state [Z98.890] 10/22/2019 12/27/2020 GERD (gastroesophageal reflux disease) [K21.9] 01/13/2020 Prediabetes [R73.03] 01/13/2020 07/11/2021 Class 1 obesity due to excess calories with bod*01/13/2020 07/11/2021 Stage 3a chronic kidney disease [N18.31] 01/13/2020 Primary osteoarthritis of right h (more content not included)... [facility] 03-01-2023 Note HNO ID: [id number] Author: Ashley Garcia RN Service: ? Author [...] but is friends with the head of Psychiatric counseling and also with the head of Psychiatric Hospice. She states can reach out to them if she feels grief counseling is needed. States she is having a left hip replacement with Dr. Shin on 04/26/23. Based on solar site assessment specialist, the following disposition is advised: No symptoms or symptoms present, not severe. Routed to: No Action Needed RUTHIE Education Provided this Outreach: No Ashley Garcia RN March 01, 2023 11:25 AM [facility] 03-01-2023 History of Present illness Narrative M Telephonic Outreach Provider Action/FYI N/A Contacted [...] but is friends with the head of Psychiatric counseling and also with the head of Psychiatric Hospice. She states can reach out to them if she feels grief counseling is needed. States she is having a left hip replacement with Dr. Shin on 04/26/23. Based on solar site assessment specialist, the following disposition is advised: No symptoms or symptoms present, not severe. Routed to: No Action Needed RUTHIE Education Provided this Outreach: No Ashley Garcia RN March 01, 2023 11:25 AM documented in this encounter [facility] 02-28-2023 Miscellaneous Notes The following approved medication requests have been transmitted electronically. Requested Prescriptions Pending Prescriptions Disp Refills clopidogrel (PLAVIX) 75 mg tablet 30 tablet 11 Sig: Take 1 tablet by mouth once daily. SYNTHROID 137 mcg tablet 90 tablet 3 Sig: Take 1 tablet by mouth once daily. Take on empty stomach. For thyroid. Umesh Liz APRN.CNP Patient has been identified [...] Lindsay Irwin RN. documented in this encounter [facility] 02-21-2023 Miscellaneous Notes Patient notified to call [facility] since they manage medication [facility] verified in [facility] Patient has been identified by name and [...] (221 lb) Not applicable Please advise. Jamee Rivera Pss documented in this encounter [facility] 02-05-2023 Miscellaneous Notes Call to pt and notified her of message below from Provider. Pt's son was in [place] in [employer] meetings. Spoke with his brother and the night prior. 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 Uses [facility]. Please call patient with update. Thank you. documented in this encounter [facility] 02-01-2023 Note HNO ID: [id number] Author: Ashley Garcia RN Service: ? Author [...] out again to patient in 3-4 weeks. [facility] 02-01-2023 History of Present illness Narrative [facility] Telephonic Outreach Provider Action/TAYA N/A Contacted for: [...] in 3-4 weeks. documented in this encounter [facility] 02-01-2023 Note Patient Outreach (AM [facility]) MATEO BEDOYA V ([id number]) 1945 F Date Time Provider Department 02/01/23 ASHLEY GARCIA [facility] During your visit today, we recorded the following information about you: Ashley Garcia RN 02/01/2023 2:52 PM Signed CDM Telephonic Outreach Provider Sapna/TAYA N/A Contacted for: Routine Telephonic Outreach Contact made with patient: Yes Patient identified by name and date of . Discussed care with patient-states she is not in a very good place right now-her 49 yo son was found in his hotel room by a collogue during a work conference in [place] yesterday. Deepest sympathy offered. Pt appreciative. States [...] as of 01/12/2022: Changed all Rx's to [facility] Pharm[facility]. 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] 05/10/2004 Essential hypertension, benign [I10] 12/16/2005 Elevated glucose [R73.09] 05/24/2012 Hypothyroidism [E03.9] 05/24/2012 Hyperlipidemia, mixed [E78.2] 05/24/2012 Female stress incontinence [N39.3] 08/23/2012 Acute medial meniscus tear of right knee [S83.2*10/23/2013 12/27/2020 Arthritis of knee, right [M17.11] 07/09/2014 Coronary artery disease involving sun'aq clay*01/09/2019 Carotid stenosis, asymptomatic, bilateral [I65.*10/02/2019 Carotid [...] Encounter Status:Closed by ASHLEY GARCIA on 02/01/23 [facility] 01-31-2023 Note Patient Outreach (AM [facility]) MATEO BEDOYA V ([id number]) 1945 F Date Time Provider Department 01/31/23 ASHLEY GARCIA [facility] During your visit today, we recorded the following information about you: Ashley Garcia RN 01/31/2023 12:04 PM Signed CDM Telephonic Outreach Provider Sapna/TAYA N/A Contacted for: Routine Telephonic Outreach Pt [...] as of 01/12/2022: Changed all Rx's to [facility] Pharm[facility]. 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] 05/10/2004 Essential hypertension, benign [I10] 12/16/2005 Elevated glucose [R73.09] 05/24/2012 Hypothyroidism [E03.9] 05/24/2012 Hyperlipidemia, mixed [E78.2] 05/24/2012 Female stress incontinence [N39.3] 08/23/2012 Acute medial meniscus tear of right knee [S83.2*10/23/2013 12/27/2020 Arthritis of knee, right [M17.11] 07/09/2014 Coronary artery disease involving sun'aq clay*01/09/2019 Carotid stenosis, asymptomatic, bilateral [I65.*10/02/2019 Carotid [...] Encounter Status:Closed by ASHLEY GARCIA on 01/31/23 [facility] 01-31-2023 Note HNO ID: [id number] Author: Ashley Garcia RN Service: ? Author Type: Registered Nurse Type: Progress Notes Filed: 01/31/2023 12:04 PM Note Text: [facility] Telephonic Outreach Provider Action/FYI N/A Contacted for: Routine Telephonic Outreach Pt requests q 2 month outreach calls. Contact made with patient: No, left message. Ashley Garcia RN January 31, 2023 12:03 PM [facility] 01-31-2023 History of Present illness Narrative [facility] Telephonic Outreach Provider Action/FYI N/A Contacted for: Routine Telephonic Outreach Pt requests q 2 month outreach calls. Contact made with patient: No, left message. Ashley Garcia RN January 31, 2023 12:03 PM documented in this encounter [facility] 01-15-2023 Note HNO ID: [id number] Author: Alejandra Valle MD Service: ? Author [...] with Ditropan xl 10 mg daily by CREDIT PROFESSIONAL Dr. Kent. Thyroid: Stable on current regimen of Synthroid 137 mcg daily. No missed dosages. DM: Does not check BS at home, no hypoglycemic episodes or neuropathy sx. Not taking any diabetic medications, tries to control with lifestyle. Does watch sugar, but does plan on cutting chocolate out of her diet more. Following with [facility] for DM eye exams. CAD/Lipid: Follows with Cardio at [facility] and V[facility] Dr. Riddle. Is in a Trial Group for Vascular. [...] OR EXPOSED ROOT (ELEVATION AND/OR FORCEPS REMOVAL) [place] teeth LAPAROSCOPY SURG CHOLECYSTECTOMY 90s Cholecystectomy, lap OOPHORECTOMY PARTIAL/TOTAL UNI/BI 80s Oophorectomy PAST SURGICAL HISTORY OF 80s 10 surgeries 14 abd tumors, all benign PAST SURGICAL HISTORY OF 12/16/2015 Dr. Reinoso, skin lesion removed PAST SURGICAL HISTORY OF Right 07/04/2016 right breast needle biopsy, benign - Dr. Reinoso PAST SURGICAL HISTORY OF N/A 05/23/2018 4 stents placed by [facility] PAST SURGICAL HISTORY OF N/A 08/14/2018 5th stent placed by [facility] PAST SURGICAL HISTORY OF Right [...] mouth once daily (more content not included)... [facility] 01-15-2023 History of Present illness Narrative Chief [...] with Ditropan xl 10 mg daily by CREDIT PROFESSIONAL Dr. Kent. Thyroid: Stable on current regimen of Synthroid 137 mcg daily. No missed dosages. DM: Does not check BS at home, no hypoglycemic episodes or neuropathy sx. Not taking any diabetic medications, tries to control with lifestyle. Does watch sugar, but does plan on cutting chocolate out of her diet more. Following with [facility] for DM eye exams. CAD/Lipid: Follows with Cardio at [facility] Dr. Riddle. Is in a Trial Group for Vascular. [...] OR EXPOSED ROOT (ELEVATION AND/OR FORCEPS REMOVAL) [place] teeth LAPAROSCOPY SURG CHOLECYSTECTOMY 90s Cholecystectomy, lap OOPHORECTOMY PARTIAL/TOTAL UNI/BI 80s Oophorectomy PAST SURGICAL HISTORY OF 80s 10 surgeries 14 abd tumors, all benign PAST SURGICAL HISTORY OF 12/16/2015 Dr. Reinoso, skin lesion removed PAST SURGICAL HISTORY OF Right 07/04/2016 right breast needle biopsy, benign - Dr. Reinoso PAST SURGICAL HISTORY OF N/A 05/23/2018 4 stents placed by [facility] PAST SURGICAL HISTORY OF N/A 08/14/2018 5th stent placed by [facility] PAST SURGICAL HISTORY OF Right right upper tooth implant PAST SURGICAL HISTORY OF 2021 Stent placed in Left Carotid Artery THYROIDECTOMY TOTAL/COMPLETE 2004 large nodule. Complete TOTAL [...] medication regimen. 7. Coronary artery disease involving sun'aq coronary artery of sun'aq heart, unspecified whether angina present - ICD9: [...] Past Histories independently gathered by the clinical sales support engineer and the remaining scribed note accurately describes [...] Lindsey Martinez Ma documented in this encounter [facility] 01-08-2023 Note HNO ID: [id number] Author: Dixie Shin MD Service: ? Author [...] of Knee, Right Coronary Artery Disease Involving Lime Coronary Artery of Lime Heart Carotid Stenosis, Asymptomatic, Bilateral Gerd (Gastroesophageal [...] 08/31/22 : 3 (more content not included)... [facility] 01-08-2023 Note HNO ID: [id number] Author: Lucrecia Chandler RT(R) Service: ? Author [...] RT Jonathan(R) January 08, 2023 8:35 AM [facility] 01-08-2023 History of Present illness Narrative Established [...] of Knee, Right Coronary Artery Disease Involving Lime Coronary Artery of Lime Heart Carotid Stenosis, Asymptomatic, Bilateral Gerd (Gastroesophageal [...] Assessment and Plan. documented in this encounter [facility] 01-08-2023 History of Present illness Narrative [...] RT Jonathan(R) January 08, 2023 8:35 AM documented in this encounter [facility] 01-04-2023 Note HNO ID: [id number] Author: Ashley Garcia RN Service: ? Author [...] Garcia RN January 04, 2023 1:59 PM [facility] 01-04-2023 Note Patient Outreach (AM [facility]) MATEO BEDOYA V ([id number]) 1945 F Date Time Provider Department 01/04[facility] visit today, we recorded the [...] as of 01/12/2022: Changed all Rx's to [facility] Pharmacy. 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] 05/10/2004 Essential hypertension, benign [I10] 12/16/2005 Elevated glucose [R73.09] 05/24/2012 Hypothyroidism [E03.9] 05/24/2012 Hyperlipidemia, mixed [E78.2] 05/24/2012 Female stress incontinence [N39.3] 08/23/2012 Acute medial meniscus tear of right knee [S83.2*10/23/2013 12/27/2020 Arthritis of knee, right [M17.11] 07/09/2014 Coronary artery disease involving sun'aq clay*01/09/2019 Carotid stenosis, asymptomatic, bilateral [I65.*10/02/2019 Carotid [...] Encounter Status:Closed by ASHLEY GARCIA on 01/04/23 [facility] 01-04-2023 History of Present illness Narrative Care Coordination Deferred Outreach Provider Action / FYI: N/A Deferred outreach to patient at this time due to: Chart Review Only Last outreach 12/06/22. Pt now requesting q 2 month outreaches. Did not contact patient today. Next Outreach date: 02/01/23 Ashley Garcia RN January 04, 2023 1:59 PM documented in this encounter [facility] 01-01-2023 Miscellaneous Notes The following approved [...] Patient aware RX will be sent to [facility] pharmacy. No need to notify patient. Grace Ordoñez documented in this encounter [facility] 12-06-2022 Note Patient Outreach ([facility]) MATEO BEDOYA V ([id number]) 1945 F Date Time Provider Department 12/06/22 [facility] During your visit today, we recorded the following information about you: Ashley Garcia RN 12/06/2022 10:11 AM Signed M Telephonic Outreach Provider Action/FYI N/A Contacted for: Routine Telephonic Outreach Contact made with patient: No, left message on mobile number. Ashley Garcia RN December 06, 2022 10:10 AM Ashley Garcia RN 12/06/2022 10:19 AM Signed CDM Telephonic Outreach Provider Action/FYI N/A [...] daily weight at home? No Based on solar site assessment specialist, the following disposition is advised: No symptoms or symptoms present, not severe. Routed to: No Action Needed RUTHIE Education Provided this Outreach: No Upcoming appointments reviewed: Appointments for Next 60 Days Date Time Provider Location Dept Phone 01/08/2023 9:30 AM DIXIE SHIN [facility] [phone] 01/15/2023 1:00 PM ALEJANDRA VALLE [facility] [phone] Ashley Garcia RN December 06, 2022 10:16 [...] as of 01/12/2022: Changed all Rx's to [facility] Pharmacy. 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] 05/10/2004 Essential hypertension, benign [I10] 12/16/2005 Elevated glucose [R73.09] 05/24/2012 Hypothyroidism [E03.9] 05/24/2012 Hyperlipidemia, mixed [E78.2] 05/24/2012 Female stress incontinence [N39.3] 08/23/2012 Acute medial meniscus tear of right knee [S83.2*10/23/2013 12/27/2020 Arthritis of knee, right [M17.11] 07/09/2014 Coronary artery disease involving sun'aq clay*01/09/2019 Carotid stenosis, asymptomatic, bilateral [I65.*10/02/2019 Carotid [...] Encounter Status:Closed by ASHLEY GARCIA on 12/06/22 [facility] 12-06-2022 Note HNO ID: [id number] Author: Ashley Garcia RN Service: ? Author Type: Registered Nurse Type: Progress Notes Filed: 12/06/2022 10:19 AM Note Text: CDM Telephonic Outreach Provider [...] daily weight at home? No Based on solar site assessment specialist, the following disposition is advised: No symptoms or symptoms present, not severe. Routed to: No Action Needed RUTHIE Education Provided this Outreach: No Upcoming appointments reviewed: Appointments for Next 60 Days Date Time Provider Location Dept Phone 01/08/2023 9:30 AM DIXIE SHIN [phone] 01/15/2023 1:00 PM ALEJANDRA VALLE [facility] [phone] Ashley Garcia RN December 06, 2022 10:16 AM [facility] 12-06-2022 Note HNO ID: [id number] Author: Ashley Garcia RN Service: ? Author Type: Registered Nurse Type: Progress Notes Filed: 12/06/2022 10:11 AM Note Text: [facility] Telephonic Outreach Provider Action/FYI N/A Contacted for: Routine Telephonic Outreach Contact made with patient: No, left message on mobile number. Ashley Garcia RN December 06, 2022 10:10 AM [facility] 12-06-2022 History of Present illness Narrative CD Telephonic Outreach Provider Action/FYI N/A Contacted for: [...] daily weight at home? No Based on solar site assessment specialist, the following disposition is advised: No symptoms or symptoms present, not severe. Routed to: No Action Needed RUTHIE Education Provided this Outreach: No Upcoming appointments reviewed: Appointments for Next 60 Days Date Time Provider Location Dept Phone 01/08/2023 9:30 AM DIXIE SHIN [facility] [phone] 01/15/2023 1:00 PM ALEJANDRA VALLE [facility] [phone] Ashley Garcia RN December 06, 2022 10:16 AM [facility] Telephonic Outreach Provider Action/FYI N/A Contacted for: Routine Telephonic Outreach Contact made with patient: No, left message on mobile number. Ashley Garcia RN December 06, 2022 10:10 AM documented in this encounter [facility] 11-20-2022 Miscellaneous Notes OK to refill as ordered Alejandra Valle MD Pharmacy verified in [facility] Patient has been identified by name and [...] 9.6 oz) Not applicable Please advise. Jamee Rivera Pss documented in this encounter [facility] 11-08-2022 Note HNO ID: [id number] Author: Ashley Garcia RN Service: ? Author Type: Registered Nurse Type: Progress Notes Filed: 11/08/2022 1:18 PM Note Text: CDM Telephonic Outreach Provider Action/FYI Left hip pain x 3 weeks-thinks she [...] daily weight at home? No Based on solar site assessment specialist, the following disposition is advised: No symptoms or symptoms present, not severe. SEE FYI BOX ABOVE Routed to: No Action Needed RUTHIE Education Provided this Outreach: No Ashley Garcia RN November 08, 2022 1:17 PM [facility] 11-08-2022 Note Patient Outreach ([facility]) MATEO BEDOYA V ([id number]) 1945 F Date Time Provider Department 11/08/22 ASHLEY GARCIA During your visit today, we recorded the following information about you: Ashley Garcia RN 11/08/2022 1:18 PM Signed CDM Telephonic Outreach Provider Action/TAYA Left hip [...] daily weight at home? No Based on solar site assessment specialist, the following disposition is advised: No symptoms or symptoms present, not severe. SEE FYI BOX ABOVE Routed to: No Action Needed RUTHIE Education Provided this Outreach: No Ashley Garica RN November 08, 2022 1:17 PM Allergies [...] as of 01/12/2022: Changed all Rx's to [facility] Pharmacy. 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] 05/10/2004 Essential hypertension, benign [I10] 12/16/2005 Elevated glucose [R73.09] 05/24/2012 Hypothyroidism [E03.9] 05/24/2012 Hyperlipidemia, mixed [E78.2] 05/24/2012 Female stress incontinence [N39.3] 08/23/2012 Acute medial meniscus tear of right knee [S83.2*10/23/2013 12/27/2020 Arthritis of knee, right [M17.11] 07/09/2014 Coronary artery disease involving sun'aq clay*01/09/2019 Carotid stenosis, asymptomatic, bilateral [I65.*10/02/2019 Carotid [...] Encounter Status:Closed by ASHLEY GARCIA on 11/08/22 [facility] 11-08-2022 History of Present illness Narrative CDM Telephonic Outreach Provider Action/FYI Left hip pain x 3 weeks-thinks she [...] daily weight at home? No Based on solar site assessment specialist, the following disposition is advised: No symptoms or symptoms present, not severe. SEE FYI BOX ABOVE Routed to: No Action Needed RUTHIE Education Provided this Outreach: No Ashley Garcia RN November 08, 2022 1:17 PM documented in this encounter [facility] 10-11-2022 Note HNO ID: [id number] Author: Ashley Garcia RN Service: ? Author Type: Registered Nurse Type: Progress Notes Filed: 10/11/2022 1:20 PM Note Text: CDM Telephonic Outreach Provider Action/MODESTAI Left VM on mobile number (preferred contact number) and on home phone number. Contacted for: Routine Telephonic Outreach Contact made with patient: No, left message. Ashley Garcia RN October 11, 2022 1:20 PM [facility] 10-11-2022 Note Patient Outreach ([facility]) MATEO BEDOYA V ([id number]) 1945 F Date Time Provider Department 10/11/22 ASHLEY GARCIA During your visit today, we recorded the following information about you: Ashley Garcia RN 10/11/2022 1:20 PM Signed CDM Telephonic Outreach Provider Action/TAYA Left VM [...] as of 01/12/2022: Changed all Rx's to [facility] Pharmacy. 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] 05/10/2004 Essential hypertension, benign [I10] 12/16/2005 Elevated glucose [R73.09] 05/24/2012 Hypothyroidism [E03.9] 05/24/2012 Hyperlipidemia, mixed [E78.2] 05/24/2012 Female stress incontinence [N39.3] 08/23/2012 Acute medial meniscus tear of right knee [S83.2*10/23/2013 12/27/2020 Arthritis of knee, right [M17.11] 07/09/2014 Coronary artery disease involving sun'aq clay*01/09/2019 Carotid stenosis, asymptomatic, bilateral [I65.*10/02/2019 Carotid [...] Encounter Status:Closed by ASHLEY GARCIA on 10/11/22 [facility] 10-11-2022 History of Present illness Narrative CDM Telephonic Outreach Provider Action/TAYA Left VM on mobile number (preferred contact number) and on home phone number. Contacted for: Routine Telephonic Outreach Contact made with patient: No, left message. Ashley Garcia RN October 11, 2022 1:20 PM documented in this encounter [facility] 10-02-2022 Note HNO ID: [id number] Author: Rizwana Hoyt APRN.ROLLER SKATE REPAIRER Service: ? Author Type: Nurse Practitioner Type: [...] OR EXPOSED ROOT (ELEVATION AND/OR FORCEPS REMOVAL) [place] teeth LAPAROSCOPY SURG CHOLECYSTECTOMY 90s Cholecystectomy, lap OOPHORECTOMY PARTIAL/TOTAL UNI/BI 80s Oophorectomy PAST SURGICAL HISTORY OF 80s 10 surgeries 14 abd tumors, all benign PAST SURGICAL HISTORY OF 12/16/2015 Dr. Reinoso, skin lesion removed PAST SURGICAL HISTORY OF Right 07/04/2016 right breast needle biopsy, benign - Dr. Reinoso PAST SURGICAL HISTORY OF N/A 05/23/2018 4 stents placed by [facility] PAST SURGICAL HISTORY OF N/A 08/14/2018 5th stent placed by [facility] PAST SURGICAL HISTORY OF Right [...] immediate medical evaluati (more content not included)... [facility] 10-02-2022 History of Present illness Narrative Images [...] OR EXPOSED ROOT (ELEVATION AND/OR FORCEPS REMOVAL) [place] teeth LAPAROSCOPY SURG CHOLECYSTECTOMY 90s Cholecystectomy, lap OOPHORECTOMY PARTIAL/TOTAL UNI/BI 80s Oophorectomy PAST SURGICAL HISTORY OF 80s 10 surgeries 14 abd tumors, all benign PAST SURGICAL HISTORY OF 12/16/2015 Dr. Reinoso, skin lesion removed PAST SURGICAL HISTORY OF Right 07/04/2016 right breast needle biopsy, benign - Dr. Reinoso PAST SURGICAL HISTORY OF N/A 05/23/2018 4 stents placed by [facility] PAST SURGICAL HISTORY OF N/A 08/14/2018 5th stent placed by [facility] PAST SURGICAL HISTORY OF Right [...] expected course of illness Rizwana Hoyt APRN.MARTIN documented in this encounter [facility] 10-02-2022 Instructions Rizwana Hoyt APRN.CNP - 10/02/2022 3:10 PM EDT ASSESSMENT/PLAN: 1. [...] expected course of illness Rizwana Hoyt APRN.CNP [facility] PATIENT INFO POISON ELLIE INTRODUCTION When [...] plants grow in many areas across the [facility] and throughout the world. [place] of the [facility], poison ellie commonly grows as a climbing vine. In the [place] area and west, poison ellie tends to grow low to the ground as a shrub. Poison oak most often grows west of the [facility], and poison sumac inhabits boggy areas in the southeastern part of the [facility]. The plants are not usually found in [...] poison ellie dermatitis. documented in this encounter [facility] 09-13-2022 Note Patient Outreach (AM [facility]) MATEO BEDOYA V ([id number]) 1945 F Date Time Provider Department 09/13/22 ASHLEY GARCIA During your visit today, we recorded the following information about you: Ashley Garcia RN 09/13/2022 11:38 AM Signed CDM Telephonic Outreach Provider Action/FYI Feeling much [...] daily weight at home? No Based on solar site assessment specialist, the following disposition is advised: No symptoms [...] goal align with programs offered at the [facility]? Yes Chronic Disease Management patient goals yes: Weight loss Most people know what to do to become healthier, yet struggle to put it into action on their own, It can be hard to maintain a healthy lifestyle, especially when life is so stressful. Can we connect you with a [facility] Health Merchant Mariner to find a program that could help you meet your goals? No Falls completed:Yes ADL's updated: Yes Are you experiencing any new or worsening symptoms you need to talk about today? No Based on solar site assessment specialist, the following disposition is advised: No symptoms or symptoms present, not severe. Ashley Garica RN September 13, 2022 11:37 AM Allergies [...] as of 01/12/2022: Changed all Rx's to [facility] Pharmacy. 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 [facility] 09-13-2022 Note HNO ID: [id number] Author: Ashley Garcia RN Service: ? Author [...] daily weight at home? No Based on solar site assessment specialist, the following disposition is advised: No symptoms [...] goal align with programs offered at the [facility]? Yes Chronic Disease Management patient goals yes: Weight loss Most people know what to do to become healthier, yet struggle to put it into action on their own, It can be hard to maintain a healthy lifestyle, especially when life is so stressful. Can we connect you with a [facility] Health Merchant Mariner to find a program that could help you meet your goals? No Falls completed:Yes ADL's updated: Yes Are you experiencing any new or worsening symptoms you need to talk about today? No Based on solar site assessment specialist, the following disposition is advised: No symptoms or symptoms present, not severe. Ashley Garcia RN September 13, 2022 11:37 AM [facility] 09-13-2022 History of Present illness Narrative CDM Telephonic [...] daily weight at home? No Based on solar site assessment specialist, the following disposition is advised: No symptoms [...] goal align with programs offered at the [facility]? Yes Chronic Disease Management patient goals yes: Weight loss Most people know what to do to become healthier, yet struggle to put it into action on their own, It can be hard to maintain a healthy lifestyle, especially when life is so stressful. Can we connect you with a [facility] Health Merchant Mariner to find a program that could help you meet your goals? No Falls completed:Yes ADL's updated: Yes Are you experiencing any new or worsening symptoms you need to talk about today? No Based on solar site assessment specialist, the following disposition is advised: No symptoms or symptoms present, not severe. Ashley Garcia RN September 13, 2022 11:37 AM documented in this encounter [facility] 09-11-2022 Note HNO ID: [id number] Author: Rizwana Hoyt APRN.ROLLER SKATE REPAIRER Service: ? Author Type: Nurse Practitioner Type: [...] Dysthymic disorder Essential hypertension, benign Herpes zoster 8/03 Impaired fasting glucose 03/31 Obesity, unspecified Other and unspecified hyperlipidemia Pessary maintenance Urinary incontinence PAST SURGICAL HISTORY Procedure Laterality Date EXTRACTION, ERUPTED TOOTH OR EXPOSED ROOT (ELEVATION AND/OR FORCEPS REMOVAL) [place] teeth LAPAROSCOPY SURG CHOLECYSTECTOMY 90s Cholecystectomy, lap OOPHORECTOMY PARTIAL/TOTAL UNI/BI 80s Oophorectomy PAST SURGICAL HISTORY OF 80s 10 surgeries 14 abd tumors, all benign PAST SURGICAL HISTORY OF 12/16/2015 Dr. Reinoso, skin lesion removed PAST SURGICAL HISTORY OF Right 07/04/2016 right breast needle biopsy, benign - Dr. Reinoso PAST SURGICAL HISTORY OF N/A 05/23/2018 4 stents placed by [facility] PAST SURGICAL HISTORY OF N/A 08/14/2018 5th stent placed by [facility] PAST SURGICAL HISTORY OF Right [...] HENT: Head: Cardio (more content not included)... [facility] 09-11-2022 History of Present illness Narrative Images [...] OR EXPOSED ROOT (ELEVATION AND/OR FORCEPS REMOVAL) [place] teeth LAPAROSCOPY SURG CHOLECYSTECTOMY 90s Cholecystectomy, lap OOPHORECTOMY PARTIAL/TOTAL UNI/BI 80s Oophorectomy PAST SURGICAL HISTORY OF 80s 10 surgeries 14 abd tumors, all benign PAST SURGICAL HISTORY OF 12/16/2015 Dr. Reinoso, skin lesion removed PAST SURGICAL HISTORY OF Right 07/04/2016 right breast needle biopsy, benign - Dr. Reinoso PAST SURGICAL HISTORY OF N/A 05/23/2018 4 stents placed by [facility] PAST SURGICAL HISTORY OF N/A 08/14/2018 5th stent placed by [facility] PAST SURGICAL HISTORY OF Right [...] Rizwana Hoyt APRN.CNP documented in this encounter [facility] 09-11-2022 Instructions Rizwana Hoyt APRN.CNP - [...] Discussed expected course of illness Rizwana Hoyt APRN.ROLLER SKATE REPAIRER NONSPECIFIC RASH: Our exam shows you have [...] stress under control documented in this encounter [facility] 08-31-2022 Note HNO ID: [id number] Author: Luanne Kent MD Service: ? Author Type: Physician Type: Progress Notes Filed: 08/31/2022 1:42 PM Note Text: Nurse Practitioner Physicians Assistant offered: Patient declines. Dumont is a 77 year old who presents for an annual gynecologic exam without complaints. Postmenopausal: Yes HRT use: No. Last Pap: prior to hysterectomy History of abnormal pap: No Last mammogram: 2022 normal Patient concerns for STD exposure: No. OB History T2 L2 SAB1 IAB0 Ectopic0 Multiple0 Live Births0 Electron Gun Inspector History LMP: LMP Unknown, Hysterectomy Age at Menarche: Age at First : Age at Menopause: Electron Gun Inspector History Comments: Sexual Activity: Not Currently; Male [...] OR EXPOSED ROOT (ELEVATION AND/OR FORCEPS REMOVAL) [place] teeth LAPAROSCOPY SURG CHOLECYSTECTOMY 90s Cholecystectomy, lap OOPHORECTOMY PARTIAL/TOTAL UNI/BI 80s Oophorectomy PAST SURGICAL HISTORY OF 80s 10 surgeries 14 abd tumors, all benign PAST SURGICAL HISTORY OF 12/16/2015 Dr. Reinoso, skin lesion removed PAST SURGICAL HISTORY OF Right 07/04/2016 right breast needle biopsy, benign - Dr. Reinsoo PAST SURGICAL HISTORY OF N/A 05/23/2018 4 stents placed by [facility] PAST SURGICAL HISTORY OF N/A 08/14/2018 5th stent placed by [facility] PAST SURGICAL HISTORY OF Right [...] external genitalia atrophic, normal Bartholin's glands, urethra, Blaine's glands, no vulvar lesions, good vaginal support, [...] one year or sooner as needed Luanne Kent, [facility] 08-20-2022 Miscellaneous Notes August 21, 2022 PID: [id number] Mateo Bedoya [address] [place] [address] Dear Ms. Bedoya, We are pleased to [...] report will be kept on file at [facility] as part of your permanent medical record and are available for your continuing care. Thank you for allowing us to help in meeting your health care needs. Sincerely, Dr. Mayers Interpreting Radiologist [facility] (Normal over 40) documented in this encounter [facility] 08-18-2022 Note HNO ID: [id number] Author: RT Shara(R) Service: ? Author Type: [...] Shara(José Miguel) August 18, 2022 1:00 PM [facility] 08-18-2022 History of Present illness Narrative Radiology [...] 2022 1:00 PM documented in this encounter [facility] 08-15-2022 Note Patient Outreach (AM [facility]) ELKEMATEO Yahaira ([id number]) 1945 F Date Time Provider Department 08/15/22 [...] daily weight at home? No Based on solar site assessment specialist, the following disposition is advised: No symptoms [...] as of 01/12/2022: Changed all Rx's to [facility] Pharmacy. 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] 05/10/2004 Essential hypertension, benign [I10] 12/16/2005 Elevated glucose [R73.09] 05/24/2012 Hypothyroidism [E03.9] 05/24/2012 Hyperlipidemia, mixed [E78.2] 05/24/2012 Female stress incontinence [N39.3] 08/23/2012 Acute medial meniscus tear of right knee [S83.2*10/23/2013 12/27/2020 Arthritis of knee, right [M17.11] 07/09/2014 Coronary artery disease involving sun'aq clay*01/09/2019 Carotid stenosis, asymptomatic, bilateral [I65.*10/02/2019 Carotid [...] Encounter Status:Closed by TAMEKA ARRIOLA on 08/15/22 [facility] 08-15-2022 Note HNO ID: [id number] Author: Tameka Arriola RN Service: ? Author [...] daily weight at home? No Based on solar site assessment specialist, the following disposition is advised: No symptoms or symptoms present, not severe. Routed to: No Action Needed RUTHIE Education Provided this Outreach: No Tameka Arriola RN August 15, 2022 11:39 AM [facility] 08-14-2022 Note Patient Outreach (AM [facility]) MATEO BEDOYA V ([id number]) 1945 F Date Time Provider Department 08/14/22 TAMEKA ARRIOLA During your visit today, we recorded the following information about you: Tameka Arriola RN 08/14/2022 11:29 AM Signed CD Telephonic Outreach Provider Action/FYI Made call #1. NA/left vm. Contacted for: [...] as of 01/12/2022: Changed all Rx's to [facility] Pharmacy. 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] 05/10/2004 Essential hypertension, benign [I10] 12/16/2005 Elevated glucose [R73.09] 05/24/2012 Hypothyroidism [E03.9] 05/24/2012 Hyperlipidemia, mixed [E78.2] 05/24/2012 Female stress incontinence [N39.3] 08/23/2012 Acute medial meniscus tear of right knee [S83.2*10/23/2013 12/27/2020 Arthritis of knee, right [M17.11] 07/09/2014 Coronary artery disease involving sun'aq clay*01/09/2019 Carotid stenosis, asymptomatic, bilateral [I65.*10/02/2019 Carotid [...] Encounter Status:Closed by TAMEKA ARRIOLA on 08/14/22 [facility] 08-14-2022 Note HNO ID: [id number] Author: Tameka Arriola RN Service: ? Author Type: Registered Nurse Type: Progress Notes Filed: 08/14/2022 11:29 AM Note Text: [facility] Telephonic Outreach Provider Action/FYI Made call #1. NA/left vm. Contacted for: Routine Telephonic Outreach Contact made with patient: No, left message. Tameka Arriola RN August 14, 2022 11:29 AM [facility] 07-14-2022 Note HNO ID: [id number] Author: Alejandra Valle MD Service: ? Author Type: Physician Type: Progress Notes Filed: 07/14/2022 5:27 PM Note Text: Chief Complaint Patient presents with: F/U 6 Month HPI Mateo Bedoya is a 77 year old female who presents here today for 6 month follow up. Here with her . No bowel, Gi, or urinary issues. Declines wanting to complete colon cancer screening. Follows with [facility] Dr. Kent who prescribes Ditropan xl 10 mg daily for OAB. Pain: Controlled on Gabapentin 300 mg 2 pills BID. Stable with use of medication. CAD/Lipid: Follows with [facility] Dr. Man. Follows with Vascular Dr. Riddle whom she sees next week. Tries to [...] wanted to control with lifestyle. Follows with [facility], scheduled to see them in August. HTN: Denies checking BP at home, no chest pains, dizziness, or SOB. Taking HCTZ 12.5 mg daily, Losartan 50 mg 2 pills once daily and Atenolol 100 mg BID. Still following with [facility], last seen 06/06/22. Follow up [...] OR EXPOSED ROOT (ELEVATION AND/OR FORCEPS REMOVAL) [place] teeth LAPAROSCOPY SURG CHOLECYSTECTOMY 90s Cholecystectomy, lap OOPHORECTOMY PARTIAL/TOTAL UNI/BI 80s Oophorectomy PAST SURGICAL HISTORY OF 80s 10 surgeries 14 abd tumors, all benign PAST SURGICAL HISTORY OF 12/16/2015 Dr. Reinoso, skin lesion removed PAST SURGICAL HISTORY OF Right 07/04/2016 right breast needle biopsy, benign - Dr. Reinoso PAST SURGICAL HISTORY OF N/A 05/23/2018 4 stents placed by [facility] PAST SURGICAL HISTORY OF N/A 08/14/2018 5th stent placed by [facility] PAST SURGICAL HISTORY OF Right [...] mL (BD POSIFLUSH (more content not included)... [facility] 07-13-2022 Note HNO ID: [id number] Author: Tameka Arriola RN Service: ? Author [...] daily weight at home? No Based on solar site assessment specialist, the following disposition is advised: Symptoms present, not severe. Routed to: No Action Needed RUTHIE Education Provided this Outreach: No Tameka Arriola RN July 13, 2022 3:54 PM [facility] 07-13-2022 History of Present illness Narrative CDM [...] daily weight at home? No Based on solar site assessment specialist, the following disposition is advised: Symptoms present, not severe. Routed to: No Action Needed RUTHIE Education Provided this Outreach: No Tameka Arriola RN July 13, 2022 3:54 PM documented in this encounter [facility] 07-13-2022 Note Patient Outreach ([facility]) MATEO BEDOYA V ([id number]) 1945 F Date Time Provider Department 4/20/23 TAMEKA ARRIOLA During your visit today, we [...] daily weight at home? No Based on solar site assessment specialist, the following disposition is advised: Symptoms present, [...] as of 01/12/2022: Changed all Rx's to [facility]. 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 Author Type: ? Type: Progress Notes Filed: 07/12/2022 6:12 PM Note Text: Summary: I year follow up C [facility] # [id number] Study Name: Mesfin Knott PI: [...] assessment completed per protocol: Yes: Normal Modified [place] completed per protocol: Yes: 0 = No symptoms Discussed with the patient the importance of follow up in the study. Patient verbalized understanding. Next study visit will be in 1 year in clinic for her 2 year follow up Patient contact information reaffirmed and updated. Coordinator contact information provided to the patient. Education provided: Follow up requirements/schedule Materials dispensed: None Booking Prizer: Jen Mary RN Pager #: [phone] [facility] 07-12-2022 History of Present illness Narrative Summary: I year follow up Mickey Gonzalez # [id number] Study Name: MickeyCherri Cortessandra PI: Claudia Wilson Study Visit: Follow- up [...] provided: Follow up requirements/schedule Materials dispensed: None Booking Prizer: Jen Mary RN Pager #: [phone] documented in this encounter [facility] 07-12-2022 Note HNO ID: [id number] Author: Diomedes Riddle MD Service: ? Author Type: Physician Type: Progress Notes Filed: 07/13/2022 10:20 AM Note Text: [facility] [place] DEPARTMENT OF VASCULAR SURGERY OUTPATIENT VISIT DATE [...] OR EXPOSED ROOT (ELEVATION AND/OR FORCEPS REMOVAL) [place] teeth LAPAROSCOPY SURG CHOLECYSTECTOMY 90s Cholecystectomy, lap OOPHORECTOMY PARTIAL/TOTAL UNI/BI 80s Oophorectomy PAST SURGICAL HISTORY OF 80s 10 surgeries 14 abd tumors, all benign PAST SURGICAL HISTORY OF 12/16/2015 Dr. Reinoso, skin lesion removed PAST SURGICAL HISTORY OF Right 07/04/2016 right breast needle biopsy, benign - Dr. Reinoso PAST SURGICAL HISTORY OF N/A 05/23/2018 4 stents placed by [facility] PAST SURGICAL HISTORY OF N/A 08/14/2018 5th stent placed by [facility] PAST SURGICAL HISTORY OF Right [...] Mid: PSV: 14 (more content not included)... [facility] 07-12-2022 History of Present illness Narrative Images from the original note were not included. Heart , [facility] [place] DEPARTMENT OF VASCULAR SURGERY OUTPATIENT VISIT DATE [...] OR EXPOSED ROOT (ELEVATION AND/OR FORCEPS REMOVAL) [place] teeth LAPAROSCOPY SURG CHOLECYSTECTOMY 90s Cholecystectomy, lap OOPHORECTOMY PARTIAL/TOTAL UNI/BI 80s Oophorectomy PAST SURGICAL HISTORY OF 80s 10 surgeries 14 abd tumors, all benign PAST SURGICAL HISTORY OF 12/16/2015 Dr. Reinoso, skin lesion removed PAST SURGICAL HISTORY OF Right 07/04/2016 right breast needle biopsy, benign - Dr. Reinoso PAST SURGICAL HISTORY OF N/A 05/23/2018 4 stents placed by [facility] PAST SURGICAL HISTORY OF N/A 08/14/2018 5th stent placed by [facility] PAST SURGICAL HISTORY OF Right [...] MD Vascular Surgery Fellow PGY-7 SIGNATURE: Diomedes Riddle MD PATIENT NAME: Mateo Bedoya DATE: July 12, 2022 TIME: 3:36 PM [facility] STAFF PHYSICIAN NOTE OF PERSONAL INVOLVEMENT [...] of the patient's care. STAFF PHYSICIAN: Diomedes Riddle MD documented in this encounter [facility] 06-29-2022 Miscellaneous Notes The following approved [...] Last Labs: 01/06/2022 documented in this encounter [facility] 06-08-2022 Note HNO ID: [id number] Author: Cayetano Funes RN Service: ? Author Type: Registered Nurse Type: Progress Notes Filed: 06/08/2022 3:38 PM Note Text: INSIGHT CDM TELEPHONIC OUTREACH Provider Action/FYI: - ckd, htn, dm - per pt, she was with her group burner machine yesterday and was told she is doing [...] like to speak with a social work marine steam fitter to help give you support for any [...] you up for automated weekly questionnaires through [employer]. This is an easy way for us [...] the Track Pt Outreach and End outreach. [facility] 06-08-2022 Note Patient Outreach ([facility]) MATEO BEDOYA V ([id number]) 1945 F Date Time Provider Department 06/08/22 CAYEATNO FUNES During your visit today, we recorded the following information about you: Cayetano Funes RN 06/08/2022 3:38 PM Signed INSIGHT [facility] TELEPHONIC OUTREACH Provider Action/I: - ckd, htn, dm - per pt, she was with her group burner machine yesterday and was told she is doing [...] like to speak with a social work marine steam fitter to help give you support for any [...] you up for automated weekly questionnaires through [employer]. This is an easy way for us [...] mL (BD PO (more content not included)... [facility] 05-05-2022 Note Patient Outreach ([facility]) MATEO BEDOYA V ([id number]) 1945 F Date Time Provider Department 05/05/22 TAMEKA ARRIOLA During your visit today, we recorded the following information about you: Tameka Arriola RN 05/05/2022 11:22 AM Signed INSIGHT CD TELEPHONIC OUTREACH FYI: Made call to patient. [...] like to speak with a social work marine steam fitter to help give you support for any [...] you up for automated weekly questionnaires through [employer]. This is an easy way for us [...] - perflutren l (more content not included)... [facility] 05-05-2022 Note HNO ID: [id number] Author: Tameka Arriola RN Service: ? Author [...] like to speak with a social work marine steam fitter to help give you support for any [...] you up for automated weekly questionnaires through [employer]. This is an easy way for us [...] the Track Pt Outreach and End outreach. [facility] 05-05-2022 History of Present illness Narrative INSIGHT [...] like to speak with a social work marine steam fitter to help give you support for any [...] you up for automated weekly questionnaires through [employer]. This is an easy way for us [...] and End outreach. documented in this encounter [facility] 04-04-2022 History of Present illness Narrative [...] like to speak with a social work marine steam fitter to help give you support for any [...] you up for automated weekly questionnaires through [employer]. This is an easy way for us [...] Outreach. End outreach documented in this encounter [facility] 03-22-2022 Miscellaneous Notes Authorized from February [...] Provider: Dr Marianela Valle Insurance Company Name: [facility] [employer] Company Phone number: [phone] Patient ID number: [id number] Pharmacy Name: [facility] Telephone number: [phone] Moon Bennett LPN documented in this encounter [facility] 03-21-2022 Miscellaneous Notes OK to refill [...] patient. Corie Watson documented in this encounter [facility] 03-13-2022 Miscellaneous Notes The following approved [...] Dang Huitron Pss documented in this encounter [facility] 02-07-2022 History of Present illness Narrative [...] like to speak with a social work marine steam fitter to help give you support for any [...] you up for automated weekly questionnaires through [employer]. This is an easy way for us [...] and End outreach. documented in this encounter [facility] 01-19-2022 History of Present illness Narrative Images from the original note were not included. Heart , Vascular and Thoracic [place] DEPARTMENT OF VASCULAR SURGERY OUTPATIENT VISIT DATE [...] OR EXPOSED ROOT (ELEVATION AND/OR FORCEPS REMOVAL) [place] teeth LAPAROSCOPY SURG CHOLECYSTECTOMY 90s Cholecystectomy, lap OOPHORECTOMY PARTIAL/TOTAL UNI/BI 80s Oophorectomy PAST SURGICAL HISTORY OF 80s 10 surgeries 14 abd tumors, all benign PAST SURGICAL HISTORY OF 12/16/2015 Dr. Reinoso, skin lesion removed PAST SURGICAL HISTORY OF Right 07/04/2016 right breast needle biopsy, benign - Dr. Reinoso PAST SURGICAL HISTORY OF N/A 05/23/2018 4 stents placed by [facility] PAST SURGICAL HISTORY OF N/A 08/14/2018 5th stent placed by [facility] PAST SURGICAL HISTORY OF Right [...] Making Level: 1 - N/A SIGNATURE: Diomedes Riddle MD PATIENT NAME: Mateo Bedoya DATE: January 19, 2022 TIME: 10:14 AM documented in this encounter [facility] 01-18-2022 History of Present illness Narrative Summary: Follow up Visit [employer] [facility] # [id number] Study Name: Mesfin Knott PI: Claudia Wilson Study Visit: Follow- up Visit I met with the patient for the 180 day follow up for the Mickey-Sophiasandra Study. Reaffirmed that the patient still wishes [...] assessment completed per protocol: Yes: Normal Modified [place] completed per protocol: Yes: 0 = No symptoms Discussed with the patient the importance of follow up in the study. Patient verbalized understanding. Next study visit will be in 180 days in clinic for her 1 yr followup. Patient contact information reaffirmed and updated. Coordinator contact information provided to the patient. Education provided: Follow up requirements/schedule Materials dispensed: Coordinator Contact Card Booking Prizer: Jen Mary RN Pager #: [phone] documented in this encounter [facility] 01-06-2022 History of Present illness Narrative POPULATION HEALTH NAVIGATION OUTREACH Action/FYI Patient due for JESSICA Patient states she sees outside provider. Saw Dr. Moon at [facility] on 08/26/2021. States she does not have [...] visits Payer: Payor: [employer] MEDICARE / Plan: AET MEDICARE PPO / Product Type: PPO / Care Gap Reviewed:: Diabetic Eye Exam Reminder: Reminder note to check Health Maintenance for items below Health Maintenance items due: DIABETIC FOOT EXAM Never done DEPRESSION ASSESSMENT Never done DILATED RETINAL EXAM due on 08/03/2021 HBA1C due on 01/06/2022 Message Sent to Practice: No Navigation Signature: Rebecca Okeefe January 06, 2022 3:16 PM documented in this encounter [facility] 12-14-2021 History of Present illness Narrative [...] like to speak with a social work marine steam fitter to help give you support for any [...] you up for automated weekly questionnaires through [employer]. This is an easy way for us [...] and End outreach. documented in this encounter [facility] 12-13-2021 Miscellaneous Notes Left message on patient's cell number (preferred number) regarding 12/28/21 appointments rescheduling for 01/18/22. Provided [phone] as call back number. Vicky Palma Research Coordinator- Cardiothoracic and Vascular Surgery documented in this encounter [facility] 12-13-2021 History of Present illness Narrative INSIGHT CDM TELEPHONIC OUTREACH Provider Action/FYI: Contact made with patient: No - Left message Marcos my name is Radha Carrizales RN your Vocational School Teacher from the [facility] I am calling today for your bi-weekly check in. I am sorry I missed your call. I will reach out to you again tomorrow. (if the third call I will reach out to you again next week) Enter next patient outreach date for the following business day using the Track Pt Outreach. End outreach. documented in this encounter [facility] 11-25-2021 Nissa Bowman APRN.[facility] - 11/25/2021 11:39 AM EDT Tylenol prn [...] get into PMD documented in this encounter [facility] 11-25-2021 History of Present illness Narrative Images from the original note were not included. Subjective The history is provided by the patient. No language path was used. BARB Bedoya is a 76 [...] have confirmed and edited as necessary, the [facility] Review of Systems Constitutional: Negative for [...] Pauly Bowman APRN.CNP documented in this encounter [facility] 11-15-2021 History of Present illness Narrative INSIGHT CDM TELEPHONIC OUTREACH Provider Action/FYI: Pt reports she [...] like to speak with a social work marine steam fitter to help give you support for any [...] you up for automated weekly questionnaires through [employer]. This is an easy way for us [...] and End outreach. documented in this encounter [facility] 10-18-2021 History of Present illness Narrative [facility] CDM Enrollment Provider Action/FYI: Patient referred by: [facility] Priti Contact made with patient: Yes - Patient identified by name and . Discussed care with patient Marcos this is Radha Carrizales RN and I am calling from Alejandra Valle MD office at the [facility]. I am a RN Vocational School Teacher with our [facility] Chronic Disease Management program. [...] few questions once a week through your [employer] account. It will automatically show up for [...] goal align with programs offered at the [facility]? Yes Chronic Disease Management patient goals yes: Weight loss Most people know what to do to become healthier, yet struggle to put it into action on their own.It can be hard to maintain a healthy lifestyle, especially when life is so stressful. Can we connect you with a [facility] Health Merchant Mariner to find a program that could help [...] today s date) documented in this encounter [facility] 10-11-2021 History of Present illness Narrative PRIMARY CARE COORDINATION QUICK NOTE Provider Action/FYI Enrollment intro sent to patient via my chart. Will follow up with a phone call within the next few days. Patient identified by name and date . Radha Carrizales RN Asphalt Mixer documented in this encounter [facility] 08-18-2021 History of Present illness Narrative Images from the original note were not included. Heart , Vascular and Thoracic [place] DEPARTMENT OF VASCULAR SURGERY OUTPATIENT VISIT DATE [...] OR EXPOSED ROOT (ELEVATION AND/OR FORCEPS REMOVAL) [place] teeth LAPAROSCOPY SURG CHOLECYSTECTOMY 90s Cholecystectomy, lap OOPHORECTOMY PARTIAL/TOTAL UNI/BI 80s Oophorectomy PAST SURGICAL HISTORY OF 80s 10 surgeries 14 abd tumors, all benign PAST SURGICAL HISTORY OF 12/16/2015 Dr. Reinoso, skin lesion removed PAST SURGICAL HISTORY OF Right 07/04/2016 right breast needle biopsy, benign - Dr. Reinoso PAST SURGICAL HISTORY OF N/A 05/23/2018 4 stents placed by [facility] PAST SURGICAL HISTORY OF N/A 08/14/2018 5th stent placed by [facility] PAST SURGICAL HISTORY OF Right [...] August 18, 2021 10:01 AM SIGNATURE: Diomedes Riddle MD PATIENT NAME: Mateo Bedoya DATE: August 18, 2021 TIME: 9:58 AM [facility] STAFF PHYSICIAN NOTE OF PERSONAL INVOLVEMENT [...] of the patient's care. STAFF PHYSICIAN: Diomedes Riddle MD DATE of SERVICE: 08/18/2021 TIME of SERVICE: 2:07 PM documented in this encounter [facility] 08-16-2021 Miscellaneous Notes August 16, 2021 PID: [id number] [address] [place] [address] Dear Ms. Bedoya, We are pleased to [...] report will be kept on file at [facility] as part of your permanent medical record and are available for your continuing care. Thank you for allowing us to help in meeting your health care needs. Sincerely, Dr. Amaya Interpreting Radiologist [facility] (Normal over 40) documented in this encounter [facility] 08-02-2021 History of Present illness Narrative [...] 2021 11:33 AM documented in this encounter [facility] 07-25-2021 History of Present illness Narrative [...] Radha Stein Ma documented in this encounter [facility] 07-21-2021 History of Present illness Narrative POPULATION HEALTH NAVIGATION OUTREACH Action/FYI 1st attempt- Spoke to patient and scheduled [...] TCM Home Visit Referral Source of Stratification: [facility] Hospital Admission Status: Discharged Readmission Risk Score: 9 LIDIA Score: 2 Program referral criteria met: Does not meet referral criteria Patient does not qualify for High Risk TCM Home Visit program due to: Does not meet referral criteria Patient does not quality for High Risk TCM Home Visit Program due to: Does not meet referral criteria Preferred contact number: [phone] Is patient staying somewhere other than the listed home address: No Dialysis Patient: No TRANSITIONAL CARE MANAGEMENT (TCM) COMMUNITY MONITORING PROGRAM Provider Action/FYI: Spoke to pt, she is doing great, up moving, eating, barley has pain, finally had a solid night sleep, just some soreness and bruising, but site looks dry and intact, pt has Vascular f/u with Dr. Riddle on 08/18. No questions about post-op discharge papers or meds. Pt needs f/u apt with PCP, Dr. Valle within a wk will forward to corporate scheduler SUMMARY: Pt discharged from [facility] on 07[facility]. Admitted for: S/P Left carotid artery stent Contact made with patient: Yes Hi my name is Bri Bhardwaj RN and I am calling from the [facility] on behalf of your PCP, Alejandra [...] like to speak with a social work marine steam fitter to help give you support for any [...] I will send your request to a corporate scheduler who will contact and assist you with that appointment. This will give you an opportunity to ask any questions or address any concerns you may have with your PCP. Inform the patient that if they have any questions or concerns prior to that appointment, to call their PCP's office right away. ACTION TAKEN: Patient desires an appointment - Routed to [facility] [[id number]] for scheduling telehealth visit (telephonic, virtual visit, [...] way if possible). documented in this encounter [facility] 07-20-2021 Nurse Note Study Name: Mesfin Knott PI: Claudia Wilson Study Visit: Prior to Discharge I met with the patient for the prior to discharge for the Mickey-Nikos Study. Reaffirmed that the patient still wishes [...] up requirements/schedule Materials dispensed: Coordinator Contact Card Booking Prizer: Gricelda alejandra [facility] Pager #: [phone] documented in this encounter [facility] 07-19-2021 Nurse Note Study Name: Mesfin Knott PI: Claudia Wilson Study Visit: Baseline/Screening I met with the patient for the index procedure visit for the C-Guardisandra Study. Reaffirmed that the patient still wishes to participate in the study and continues to consent to the study. Index procedure successfully complete Booking Prizer: Gricelda alejandra [facility] Pager #: [phone] documented in this encounter [facility] 07-18-2021 Nurse Note Study Name: Mesfin [...] assessment completed per protocol: Yes: Normal Modified [place] completed per protocol: Yes: 0 = No symptoms Patient contact information reaffirmed and updated. Coordinator contact information provided to the patient. Education provided: Protocol required tests/procedures and Follow up requirements/schedule Materials dispensed: Coordinator Contact Card Booking Prizer: Gricelda Ruiz [facility] Pager #: [phone] documented in this encounter [facility] 07-18-2021 History and physical note VASCULAR SURGERY PREOPERATIVE H&P SERVICE DATE: 07/18/21 SERVICE TIME: 1200 PRIMARY CARE PHYSICIAN: Alejandra Valle MD REFERRING PROVIDER: Diomedes Riddle [address] [facility] [id number] Consult requested for an opinion regarding the [...] for left carotid artery stenting with Dr. Riddle. Denies TIA/stroke symptoms or amaurosis. No additional complaints. Hand dominance: Right Latex allergy: No Contrast dye allergy: No Patient is on following blood thinners: continue ASA/Plavix Pacemaker: No Does the patient accept blood products: Yes Tests: 06/15/21: Carotid duplex IMPRESSION Notified Dale Riddle MD with results. Compared to prior study [...] OR EXPOSED ROOT (ELEVATION AND/OR FORCEPS REMOVAL) [place] teeth LAPAROSCOPIC CHOLEYCYSTECTOMY 90s Cholecystectomy, lap PAST SURGICAL HISTORY OF 80s 10 surgeries 14 abd tumors, all benign PAST SURGICAL HISTORY OF 12/16/2015 Dr. Reinoso, skin lesion removed PAST SURGICAL HISTORY OF Right 07/04/2016 right breast needle biopsy, benign - Dr. Reinoso PAST SURGICAL HISTORY OF N/A 05/23/2018 4 stents placed by [facility] PAST SURGICAL HISTORY OF N/A 08/14/2018 5th stent placed by [facility] PAST SURGICAL HISTORY OF Right [...] mL injection (DEFINITY) INTRAVENOUS DIRECTED PRN Ashleigh Marsh, TOOL GRINDER OPERATOR EXTERNAL.ROLLER SKATE REPAIRER sodium chloride 0.9 % (flush) 10 mL (BD POSIFLUSH) 10 mL INTRAVENOUS DIRECTED PRN Ashleigh Marsh, TOOL GRINDER OPERATOR EXTERNAL.ROLLER SKATE REPAIRER ALLERGIES Allergen Reactions Bee Stings And Inse* [...] for left carotid artery stenting with Dr. Riddle. Medication list reviewed, updated, and verified with patient. PLAN/RECOMMENDATIONS Scheduled for left carotid artery stent with Dr. Riddle on 07/19/21. Ready for surgery pending Labs, COVID test Consent: Done SIGNATURE: Ashleigh Marsh APRN.CNP PATIENT NAME: Mateo Bedoya DATE: 07/18/21 TIME: 1319 documented in this encounter [facility] 07-18-2021 History of Present illness Narrative [...] VASCULAR SURG DEPT documented in this encounter [facility] 07-18-2021 Instructions Ashleigh Marsh APRN.CNP - [...] your regimen before surgery. Signed: Ashleigh Marsh APRN.CNP documented in this encounter [facility] 07-15-2021 Miscellaneous Notes Filed Refill request received from pharmacy. Patient last seen in office on 10/14/20. Lucy Devora RN documented in this encounter [facility] 07-15-2021 Miscellaneous Notes Phoned [facility], pharmacist states rx was received and will be ready for pt crop picker in a few hours. TC to pt, left detailed message on secure identified voicemail. Miguel Kendrick LPN Patient stated [facility] told her they did not get a script for her Epipen. [facility] says it was received. Please resend. documented in this encounter [facility] 07-13-2021 History of Present illness Narrative [...] due to left carotid stenosis by Dr. Riddle. Follows with Cardio, Dr. Man. Does try [...] OR EXPOSED ROOT (ELEVATION AND/OR FORCEPS REMOVAL) [place] teeth LAPAROSCOPIC CHOLEYCYSTECTOMY 90s Cholecystectomy, lap PAST SURGICAL HISTORY OF 80s 10 surgeries 14 abd tumors, all benign PAST SURGICAL HISTORY OF 12/16/2015 Dr. Reinoso, skin lesion removed PAST SURGICAL HISTORY OF Right 07/04/2016 right breast needle biopsy, benign - Dr. Reinoso PAST SURGICAL HISTORY OF N/A 05/23/2018 4 stents placed by [facility] PAST SURGICAL HISTORY OF N/A 08/14/2018 5th stent placed by [facility] PAST SURGICAL HISTORY OF Right [...] weight loss. 6. Coronary artery disease involving sun'aq coronary artery of sun'aq heart, unspecified whether angina present - ICD9: [...] Past Histories independently gathered by the clinical sales support engineer and the remaining scribed note accurately describes [...] Radha Stein Ma documented in this encounter [facility] documented in this encounter [facility] History of Past illness Narrative* Problem [...] of this encounter (statuses as of 07/13/2021) [facility] History of Past illness Narrative* Problem [...] of this encounter (statuses as of 07/15/2021) [facility] History of Past illness Narrative* Problem [...] of this encounter (statuses as of 07/15/2021) [facility] of Past illness Narrative* Problem [...] of this encounter (statuses as of 07/18/2021) [facility] of Past illness Narrative* Problem [...] of this encounter (statuses as of 07/18/2021) [facility] of Past illness Narrative* Problem [...] of this encounter (statuses as of 07/18/2021) [facility] Past illness Narrative* Problem [...] of this encounter (statuses as of 07/19/2021) [facility] Past illness Narrative* Problem [...] of this encounter (statuses as of 07/20/2021) [facility] of Past illness Narrative* Problem [...] of this encounter (statuses as of 07/21/2021) [facility] of Past illness Narrative* Problem [...] of this encounter (statuses as of 07/25/2021) [facility] of Past illness Narrative* Problem [...] of this encounter (statuses as of 08/02/2021) [facility] Past illness Narrative* Problem [...] of this encounter (statuses as of 08/18/2021) [facility] Past illness Narrative* Problem [...] of this encounter (statuses as of 08/18/2021) [facility] illness Narrative* Problem [...] of this encounter (statuses as of 10/12/2021) [facility] Past illness Narrative* Problem [...] of this encounter (statuses as of 10/18/2021) [facility] Past illness Narrative* Problem [...] of this encounter (statuses as of 11/15/2021) [facility] Past illness Narrative* Problem [...] of this encounter (statuses as of 11/25/2021) [facility] of Past illness Narrative* Problem [...] of this encounter (statuses as of 12/13/2021) [facility] of Past illness Narrative* Problem [...] of this encounter (statuses as of 12/14/2021) [facility] illness Narrative* Problem [...] of this encounter (statuses as of 01/06/2022) [facility] Narrative* Problem [...] of this encounter (statuses as of 01/18/2022) [facility] illness Narrative* Problem [...] of this encounter (statuses as of 01/19/2022) [facility] illness Narrative* Problem [...] of this encounter (statuses as of 02/07/2022) [facility] illness Narrative* Problem [...] of this encounter (statuses as of 02/24/2022) [facility] illness Narrative* Problem [...] of this encounter (statuses as of 03/13/2022) [facility] illness Narrative* Problem [...] of this encounter (statuses as of 03/27/2022) [facility] Narrative* Problem [...] of this encounter (statuses as of 03/29/2022) [facility] Narrative* Problem [...] of this encounter (statuses as of 04/04/2022) [facility] Narrative* Problem [...] of this encounter (statuses as of 05/05/2022) [facility] Narrative* Problem [...] of this encounter (statuses as of 06/29/2022) [facility] Narrative* Problem [...] of this encounter (statuses as of 07/13/2022) [facility] Narrative* Problem [...] of this encounter (statuses as of 07/13/2022) [facility] Narrative* Problem [...] of this encounter (statuses as of 07/14/2022) [facility] Narrative* Problem [...] of this encounter (statuses as of 08/22/2022) [facility] Narrative* Problem [...] of this encounter (statuses as of 09/12/2022) [facility] Narrative* Problem [...] of this encounter (statuses as of 09/13/2022) [facility] Narrative* Problem [...] of this encounter (statuses as of 10/03/2022) [facility] Narrative* Problem [...] of this encounter (statuses as of 10/11/2022) [facility] illness Narrative* Problem Noted Date Diagnosed Date Resolved Date Prediabetes 01/13/2020 07/11/2021 Last Assessment & Plan: Assessment: no rx, A1c 6.9 01/07/2020 Class 1 obesity due to exces s calories with body mass index (BMI) of 33.0 to 33.9 in adult 01/13/2020 07/11/2021 Last Assessment & Plan: Assessment: Body mass index is 33.95 kg/m . Post-operative state 10/22/2019 10/04/2 021 Overview: H/A: asymptomatic carotid lesion s/p [...] of this encounter (statuses as of 11/09/2022) [facility] History of Past illness Narrative* Problem [...] of this encounter (statuses as of 11/21/2022) [facility] illness Narrative* Problem [...] of this encounter (statuses as of 12/06/2022) [facility] illness Narrative* Problem [...] of this encounter (statuses as of 01/02/2023) [facility] illness Narrative* Problem [...] of this encounter (statuses as of 01/04/2023) [facility] illness Narrative* Problem [...] of this encounter (statuses as of 01/08/2023) [facility] illness Narrative* Problem [...] of this encounter (statuses as of 01/09/2023) [facility] illness Narrative* Problem [...] of this encounter (statuses as of 01/15/2023) [facility] illness Narrative* Problem [...] of this encounter (statuses as of 01/28/2023) [facility] illness Narrative* Problem [...] of this encounter (statuses as of 02/01/2023) [facility] Narrative* Problem [...] of this encounter (statuses as of 02/02/2023) [facility] Narrative* Problem [...] of this encounter (statuses as of 02/06/2023) [facility] Narrative* Problem [...] of this encounter (statuses as of 02/21/2023) [facility] Narrative* Problem [...] of this encounter (statuses as of 02/28/2023) [facility] illness Narrative* Problem [...] of this encounter (statuses as of 03/01/2023) [facility] illness Narrative* Problem [...] of this encounter (statuses as of 03/07/2023) [facility] illness Narrative* Problem [...] of this encounter (statuses as of 03/12/2023) [facility] illness Narrative* Problem [...] of this encounter (statuses as of 04/27/2023) [facility] Past illness Narrative* Problem [...] as of this encounter (statuses as of 05/03/2023) [facility] Narrative* Problem [...] as of this encounter (statuses as of 05/04/2023) [facility] illness Narrative* Problem [...] as of this encounter (statuses as of 05/04/2023) [facility] Overactive bladder Hypertonicity of [...] Preoperative examination, unspecified [facility] Carotid stenosis, asymptomatic, bilateral- Primary Examination of participant in clinical trial Stenosis of left carotid artery Occlusion and stenosis of carotid artery without mention of cerebral infarction Preop testing Preoperative examination, unspecified [facility] Research study patient- Primary Stenosis [...] of insulin (HCC) Coronary artery disease involving sun'aq coronary artery of sun'aq heart, unspecified whether angina present Essential hypertension, [...] study patient- Primary [facility] Diagnosis Bilateral carotid artery stenosis- Primary Occlusion and stenosis of carotid artery without mention of cerebral infarction [facility] Diagnosis Carotid stenosis, asymptomatic, bilateral- Primary Examination of participant in clinical trial [facility] Diagnosis Research study patient- Primary [facility] Diagnosis Bilateral carotid artery stenosis- Primary Occlusion and stenosis of carotid artery without mention of cerebral infarction [facility] Diagnosis 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 Rash Rash and other nonspecific skin eruption [facility] Diagnosis Rash- Primary Rash and other nonspecific skin eruption [facility] Diagnosis Essential hypertension, benign [facility] Diagnosis Arthritis of hip- Primary Unspecified arthropathy, pelvic region and thigh [facility] Diagnosis Pain in left hip Pain in joint, pelvic region and thigh [facility] Diagnosis Essential hypertension, benign- Primary Hyperlipidemia, mixed Mixed hyperlipidemia Type 2 diabetes mellitus with stage 3a chronic kidney disease, without long-term current use of insulin (HCC) Acquired hypothyroidism Unspecified hypothyroidism Overactive bladder Hypertonicity of bladder Nerve pain Neuralgia, neuritis, and radiculitis, unspecified Coronary artery disease involving sun'aq coronary artery of sun'aq heart, unspecified whether angina present Benign neoplasm of cerebral meninges (HCC) Benign neoplasm of cerebral meninges [facility] Diagnosis Primary osteoarthritis of left hip- Primary Primary localized osteoarthrosis, pelvic region and thigh [facility]* Visit Details Visit Type -OT EVAL Discipline -Occupational Therapy Problems Problem Description Start Date Status Goals Interve ntions Sepsis Disciplines: Skilled Services 05/03/2023 Active 1 goal linked to scheduled/document ed intervention 1 goal intervention scheduled/document ed in this visit OT Referral Disciplines: Skilled Services 05/03/2023 Resolved on 05/03/2023 1 goal linked to scheduled/document ed intervention 1 goal intervention scheduled/document ed in this visit Physician Specific Parameters Disciplines: Skilled Services 05/03/2023 Active 1 goal linked to scheduled/document ed intervention 1 goal intervention scheduled/document ed in this visit Risk for Falls Disciplines: Skilled Services 05/03/2023 Active 1 goal linked to scheduled/document ed intervention 1 goal intervention scheduled/document ed in this visit Pain Disciplines: Skilled Services 05/03/2023 Active 1 goal linked to scheduled/document ed intervention 1 goal intervention scheduled/document ed in this visit Discharge Disciplines: Skilled Services 05/03/2023 Active 1 goal linked to scheduled/document ed intervention 2 goal interventions scheduled/document ed in this visit OT Learning Assessment Disciplines: OT 05/03/2023 Active 1 goal linked to scheduled/document ed intervention 1 goal intervention scheduled/document ed in this visit OT ADLs/IADLs Disciplines: OT 05/03/2023 Active 1 goal linked to scheduled/document ed intervention 1 goal intervention scheduled/document ed in this visit Goals Goal Associated Problem Outcome Goal Met? Visit Notes Patient/caregiver will be able to identify and report symptoms of sepsis Description: Patient/caregiver will be able to identify signs/symptoms of sepsis infection and will verbalize actions to take if suspected by 07/01/23. . Sepsis No Patient will be referred to additional discipline as needed OT Referral Completed Yes Patient to maintain parameters within physician-specified ranges throughout certification period Physician Specific Parameters No Manage Risk for falls Description: Patient/caregiver will verbalize knowledge of individualized fall prevention strategies by 07/01/23. . Risk for Falls No Manage Pain Description: Patient/caregiver will verbalize knowledge and understanding of appropriate techniques to control pain, including pain medication and non-pharmacological techniques. Patient will verbalize or demonstrate an acceptable level of pain as evidenced by a pain score of <5/10 and improvement in ability to perform activities of daily living to be achieved by 07/01/23. . Pain No Manage discharge planning Description: Patient/caregiver will verbalize understanding of ongoing discharge plan provided related to disease management, arrangements for outpatient and/or community services, obtaining medications, supplies, and DME, as needed throughout certification period. Discharge No Demonstrate understanding of education Description: Patient and/or caregiver will understand educational instruction to be achieved by 05/19/23. OT Learning Assessment No Improved ADLs/IADLs performance Description: patient will verbalize understanding of instructions and demonstrate improved performance of lower body dressing, bathing and toileting to minimum assistance as evidenced by improved Marlene ADL Index score to at least 80/100 to be achieved by 05/19/23. OT ADLs/IADLs No Interventions Intervention Associated Problem/Goal Status Variance Visit Notes Risk of Sepsis Description: Patient is at risk for sepsis. Monitor closely for s/s of sepsis. Problem:Sepsis Goal:Patient/caregive r will be able to identify and report symptoms of sepsis Completed OT evaluation and treatment Description: Evaluate and treat for the assessment of functional deficits and establishment of appropriate interventions and education to address: I/ADL training, functional transfers, DME/adaptive equipment recommendations, safety awareness, energy conservation and home safety and falls prevention recommendations. Problem:OT Referral Goal:Patient will be referred to additional discipline as needed Completed SPO2 Description: Notify Dr. Shin if pulse ox is <92% at rest. Problem:Physician Specific Parameters Goal:Patient to maintain parameters within physician-specified ranges throughout certification period Completed Instruct on individual fall risk factors and strategies to prevent falls and injuries caused by falls. Problem:Risk for Falls Goal:Manage Risk for falls Completed OT: Patient instructed on Eliminating Environmental Hazards: Keep pathways clear and Keep pets out of pathways Instruct on pain and instruct on strategies to control pain Problem:Pain Goal:Manage Pain Completed patient instructed on techniques to control pain including Non-Pharmacological measures; rest. Instruct on ongoing discharge plan Problem:Discharge Goal:Manage discharge planning Completed Ongoing Discharge plan: Discharge plan discussed with patient including frequency and duration for home OT and plan for transition to: caregiver assistance. Instruct on importance of follow-up appts and continued monitoring with medical provider &/or chronic care clinic Problem:Discharge Goal:Manage discharge planning Completed Education provided on importance of compliance with follow-up appointment(s). Instruct and educate on knowledge deficits Problem:OT Learning Assessment Goal:Demonstrate understanding of education Completed Education methods include: verbal cues. Patient/Caregiver require further education to improve knowledge and compliance with fall prevention strategies. ADL/IADLs Training Problem:OT ADLs/IADLs Goal:Improved ADLs/IADLs performance Completed Pt instructed in use of LB dressing equipment for LB dressing [facility]* Visit Details Visit Type -PT SOC Discipline -Physical Therapy Problems Problem Description Start Date Status Goals Interve ntions Medication Education Disciplines: Skilled Services 05/03/2023 Active 1 goal linked to scheduled/documen jennifer intervention 1 goal intervention scheduled/document ed in this visit Sepsis Disciplines: Skilled Services 05/03/2023 Active 1 goal linked to scheduled/documen jennifer intervention 1 goal intervention scheduled/document ed in this visit Physician Specific Parameters Disciplines: Skilled Services 05/03/2023 Active 1 goal linked to scheduled/documen jennifer intervention 1 goal intervention scheduled/document ed in this visit Risk for Falls Disciplines: Skilled Services 05/03/2023 Active 1 goal linked to scheduled/documen jennifer intervention 1 goal intervention scheduled/document ed in this visit Pain Disciplines: Skilled Services 05/03/2023 Active 1 goal linked to scheduled/documen jennifer intervention 1 goal intervention scheduled/document ed in this visit High Risk Medications Disciplines: Skilled Services 05/03/2023 Resolved on 05/03/2023 1 goal linked to scheduled/documen jennifer intervention 2 goal interventions scheduled/document ed in this visit Advance Directives Disciplines: Skilled Services 05/03/2023 Resolved on 05/03/2023 1 goal linked to scheduled/documen jennifer intervention 1 goal intervention scheduled/document ed in this visit PT Orthopedic Condition Disciplines: PT 05/03/2023 Active 1 goal linked to scheduled/documen jennifer intervention 4 goal interventions scheduled/document ed in this visit PT Learning Assessment Disciplines: PT 05/03/2023 Active 1 goal linked to scheduled/documen jennifer intervention 1 goal intervention scheduled/document ed in this visit Goals Goal Associated Problem Outcome Goal Met? Visit Notes Patient/caregiver will demonstrate ability to obtain, store, identify and administer ordered medications, keep accurate medication list in home, and adhere to medication schedule Description: Patient/caregiver will demonstrate ability to obtain, store, identify and administer ordered medications, keep accurate medication list in home, and adhere to medication schedule by 07/01/23. Medication Education No Patient/caregiver will be able to identify and report symptoms of sepsis Description: Patient/caregiver will be able to identify signs/symptoms of sepsis infection and will verbalize actions to take if suspected by 07/01/23. . Sepsis No Patient to maintain parameters within physician-specified ranges throughout certification period Physician Specific Parameters No Manage Risk for falls Description: Patient/caregiver will verbalize knowledge of individualized fall prevention strategies by 07/01/23. . Risk for Falls No Manage Pain Description: Patient/caregiver will verbalize knowledge and understanding of appropriate techniques to control pain, including pain medication and non-pharmacological techniques. Patient will verbalize or demonstrate an acceptable level of pain as evidenced by a pain score of <5/10 and improvement in ability to perform activities of daily living to be achieved by 07/01/23. . Pain No Patient/caregiver will teach back high risk medication side effect and precaution education High Risk Medications Completed Yes Patient/caregiver will make healthcare providers aware of and any changes to Advance Directives throughout certification period Advance Directives Completed Yes Manage Orthopedic Condition Description: Improve patient and/or caregiver understanding of post surgical and/or non-surgical orthopedic intervention management as evidenced by patient and/or caregiver able to verbalize, demonstrate, and teach back instruction, to be achieved by 05/19/23.. PT Orthopedic Condition No Demonstrate understanding of education Description: Patient and/or caregiver will understand educational instruction to be achieved by 05/19/23.. PT Learning Assessment No Interventions Intervention Associated Problem/Goal Status Variance Visit Notes Medication Education Description: Evaluate/instruct patient/caregiver on obtaining, storing, identifying and administering ordered medications as well as keeping accurate medication list in the home and adhereing to medication schedule Problem:Medication Education Goal:Patient/caregive r will demonstrate ability to obtain, store, identify and administer ordered medications, keep accurate medication list in home, and adhere to medication schedule Completed Patient instructed on importance of keeping accurate medication list in home, need to take up-to-date medication list to all medical provider appointments and adhering to medication schedule. Risk of Sepsis Description: Patient is at risk for sepsis. Monitor closely for s/s of sepsis. Problem:Sepsis Goal:Patient/caregive r will be able to identify and report symptoms of sepsis Completed SPO2 Description: Notify Dr. Shin if pulse ox is <92% at rest. Problem:Physician Specific Parameters Goal:Patient to maintain parameters within physician-specified ranges throughout certification period Completed Instruct on individual fall risk factors and strategies to prevent falls and injuries caused by falls. Problem:Risk for Falls Goal:Manage Risk for falls Completed PT: Patient instructed on Eliminating Environmental Hazards: Keep pathways clear, Keep pets out of pathways, Remove unsafe rugs, Move furniture from pathways, Keep rooms and walkways well lit, Install hand rails/grab bars and Wear supportive shoes or non-skid socks Managing Impaired Functional Mobility: Use assistive device(s): front wheeled walker Managing Pain Instruct on pain and instruct on strategies to control pain Problem:Pain Goal:Manage Pain Completed patient instructed on techniques to control pain including Pharmacological measures and Non-Pharmacological measures; rest, positioning/elevation and use of thermal modalities, apply ice to affected area . Opioids- educated on high risk medication Problem:High Risk Medications Goal:Patient/caregive r will teach back high risk medication side effect and precaution education Completed patient educated on taking medication(s) as prescribed by provider. Do not stop medication or alter doses without speaking with your provider. Discuss medication effectiveness or side effect concerns with your provider and home care team. Only take opioids as prescribed, do not share your medications, and take proper precautions in storing and properly disposing of opioids once no longer needed. Possible side effects of opioid medication including sedation, decreased rate of breathing, and constipation. Report over sedation to prescribing provider and practice deep breathing techniques every hour while awake. Prevent constipation by increasing water and fiber intake, increasing activity as tolerated, and use stool softener(s) as prescribed. Antiplatelet- educated on high risk medication Problem:High Risk Medications Goal:Patient/caregive r will teach back high risk medication side effect and precaution education Completed patient educated on taking medication(s) as prescribed by provider. Do not stop medication or alter doses without speaking with your provider. Discuss medication effectiveness or side effect concerns with your provider and home care team. Discuss all medications you are taking, even qmnr-kaf-mvqzcic medicines, with your provider and pharmacist since many drugs can interact with antiplatelet medications. If you forget to take a dose, DO NOT take a double dose. Take the missed dose as soon as possible on the same day. DO NOT take a double dose the next day to make up for the missed dose. Watch for signs of abnormal or excessive bleeding and bruising (refer to Bleeding Precautions education). Call your health care provider right away if you suspect something is wrong. Determine patient's Advance Directive Status Description: Patient does have advance directives. Patient's Advance Directives determined to be available in Home and EMR Healthcare DPOA and Living Will. Problem:Advance Directives Goal:Patient/caregive r will make healthcare providers aware of and any changes to Advance Directives throughout certification period Completed Discussed Advance Directives with Patient and/or Caregiver. Referred patient to Home Care handbook for further information on Healthcare DPOA & Living Will. Instruct on orthopedic precautions and weight bearing restrictions Description: Orthopedic precautions including left posterior hip: no hip flexion > 90 degrees, no adduction, no IR/ER rotation of involved extermity and immobilzer. Weight bearing restrictions include: WBAT of involved extremity. Problem:PT Orthopedic Condition Goal:Manage Orthopedic Condition Completed patient instructed on orthopedic precautions and weight bearing restrictions. Instruct on management of edema Problem:PT Orthopedic Condition Goal:Manage Orthopedic Condition Completed Instruct patient on management of edema including elevation of LLE above the level of the heart and ice. Physical therapy to perform surgical incision/wound management Description: Removal of post-op dressing on POD 7 ( 05/03/23). If no drainage is present, leave open to air; if drainage is present, cover with clean dressing and contact provider. Problem:PT Orthopedic Condition Goal:Manage Orthopedic Condition Completed Intervention completed this date. Instruct on self-management of post surgical and/or non-surgical orthopedic intervention Problem:PT Orthopedic Condition Goal:Manage Orthopedic Condition Completed patient instructed on managagement of orthopedic condition, staying well hydrated, eating foods with high protein, signs and symptoms of infection, signs and symptoms of DVT/PE, follow provider guidance for showering and instructed on when to call provider. Instruct and educate on knowledge deficits Problem:PT Learning Assessment Goal:Demonstrate understanding of education Completed patient verbalize and/or demonstrate understanding of physical therapy education including orthopedic condition management, weight bearing precautions, surgical precautions, pain management, fall prevention strategies, home safety, functional activity and home exercise program. Education methods include: verbal cues and written instructions. Further education required to improve knowledge and compliance with orthopedic condition management, weight bearing precautions, surgical precautions, pain management, fall prevention strategies, home safety, functional activity and home exercise program. documented in this encounter [facility] for referral (narrative)* Diagnostic Procedure Only (Routine) - Authorized Specialty Diagnoses / Procedures Referred By Wanda Referred To Contact [facility] Diagnoses Encounter for screening mammogram for malignant neoplasm of breast Procedures KIM SCREENING SCREENING MAMMOGRAPHY BI 2-VIEW BREAST INC CAD Leonard, Alejandra Johnson MD [address] [place] [address] [facility] [address] [place] [address] Referral ID Status Reason Start Date Expiration Date Visits Requested Visits Authorized [id number] Authorized Auto-Generat ed Referral 07/13/2021 08/12/2022 1 1 [facility] for referral (narrative)* Outpatient Procedure (Routine) - Pending Review Specialty Diagnoses / Procedures Referred By Wanda leos Referred To Contact [facility] Diagnoses Carotid stenosis, asymptomatic, bilateral Examination of participant in clinical trial Procedures US CAROTID ARTERIES [facility] LAB DUPLEX SCAN EXTRACRANIAL ART COMPL BI STUDY Diomedes Riddle MD [address] [place] [address] [facility] [place] [address] [place] [address] Referral ID Status Reason Start Date Expiration Date Visits Requested Visits Authorized [id number] Pending Review Auto-Generat ed Referral 07/12/2022 02/22/2023 1 1 [facility] for referral (narrative)* Diagnostic Procedure Only (Routine) - Closed Specialty Diagnoses / Procedures Referred By Wanda leos Referred To Contact XR IMAGING Diagnoses Pain in left hip Procedures XR HIP GENERAL 3V PELV/AP/LAT LEFT RADEX HIP UNILATERAL WITH PELVIS 2-3 VIEWS Eros Jay PA-C [address] [place] [address] [place] [id number] Referral ID Status Reason Start Date Expiration Date V isits Requested Visits Authorized [id number] Closed Auto-Generate d Referral 12/22/2022 01/21/2024 1 1 [facility] Procedure Only (Routine) - Closed Specialty Diagnoses / Procedures Referred By Wanda leos Referred To Contact [facility] Diagnoses Visit for screening mammogram Procedures KIM SCREENING SCREENING MAMMOGRAPHY BI 2-VIEW BREAST INC Alejandra Cordon MD [address] [place] [address] [facility] [address] [place] [address] Referral ID Status Reason Start Date Expiration Date V isits Requested Visits Authorized [id number] Closed Auto-Generate d Referral 07/27/2022 08/24/2023 1 1 [facility] Advance Directives Documents on File Type Date Recorded Patient Inpatient Pharmacist Expl anation Advance Directive(s) 04/16/2017 11:17 AM Latest Code Status on File Code Status Date Activated Date Inactivated Comments Full Code 01/19/2020 5:04 PM 07/19/2021 5:23 AM Full Code 01/15/2020 2:00 PM 01/17/2020 8:35 PM Full Code Order Discussed With: Discussion Not M edically Appropriate Documents on File Type Date Recorded Patient Inpatient Pharmacist Expl anation Advance Directive(s) Advance Directive(s) 01/08/2020 11:12 AM Advance Directive(s) 10/21/2019 7:32 AM Advance Directive(s) 10/08/2019 1:16 PM Advance Directive(s) 04/16/2017 11:17 AM Latest Code Status on File Code Status Date Activated Date Inactivated Comments Full Code 01/19/2020 5:04 PM Full Code 01/15/2020 2:00 PM 01/17/2020 8:35 PM Documents on File Type Date Recorded Patient Inpatient Pharmacist Expl anation Advance Directive(s) Advance Directive(s) 01/08/2020 11:12 AM Advance Directive(s) 10/21/2019 7:32 AM Advance Directive(s) 10/08/2019 1:16 PM Advance Directive(s) 04/16/2017 11:17 AM Latest Code Status on File Code Status Date Activated Date Inactivated Comments Full Code 01/19/2020 5:04 PM Documents on File Type Date Recorded Patient Inpatient Pharmacist Expl anation Advance Directive(s) Advance Directive(s) 07/18/2021 1:59 PM Advance Directive(s) 01/08/2020 11:12 AM Advance Directive(s) 10/21/2019 7:32 AM Advance Directive(s) 10/08/2019 1:16 PM Advance Directive(s) 04/16/2017 11:17 AM Documents on File Type Date Recorded Patient Inpatient Pharmacist Expl anation Advance Directive(s) 04/16/2017 11:17 AM [...] Order Discussed With: Discussion Not Medically Appropriate Documents on File Type Date Recorded Patient Inpatient Pharmacist Expl anation Advance Directive(s) 04/26/2023 5:37 AM Advance Directive(s) 04/26/2023 5:36 AM Latest Code Status on File Code Status Date Activated Date Inactivated Comments Full Code 04/29/2023 8:46 PM 05/01/2023 4:29 PM Question Answer Comments Full Code Order Discussed With: Patient Code Status History Code Status Date Activated Date Inactivated Comments Full Code 01/19/2020 5:04 PM 07/19/2021 5:23 AM Full Code 01/15/2020 2:00 PM 01/17/2020 8:35 PM Question Answer Comments Full Code Order Discussed With: Discussion Not Medically Appropriate Latest Code Status on File Code Status Date Activated Date Inactivated Comments Full Code 05/03/2023 4:35 PM Code Status History Code Status Date Activated Date Inactivated Comments Full Code 04/29/2023 8:46 PM 05/01/2023 4:29 PM Question Answer Comments Full Code Order Discussed With: Patient Full Code 01/19/2020 5:04 PM 07/19/2021 5:23 AM Full Code 01/15/2020 2:00 PM 01/17/2020 8:35 PM Question Answer Comments Full Code Order Discussed With: Discussion Not Medically Appropriate Health Concerns Infection Onset Date Last Indicated Resolved Time COVID-19 Rule-Out 07/18/2021 07/18/2021 Reason for Referral Specialty Diagnoses / Procedures Referred By Contac t Referred To Contact Alejandra Valle MD [address] [place] [address] Referral ID Status Reason Start Date Expiration Date V isits Requested Visits Authorized [id number] Authorized 02/20/2022 03/22/2023 1 1 Specialty Diagnoses / Procedures Referred By Contac t Referred To Contact [facility] Diagnoses Primary osteoarthritis of left hip Procedures CONSULT TO PHYSICAL THERAPY PHYSICAL THERAPY EVALUATION HIGH COMPLEX 45 MINS Eros Jay PA-C [address] [place] [address] [facility] [place] [address] [place] [address] Referral ID Status Reason Start Date Expiration Date Visits Requested Visits Authorized [id number] Pending Review Auto-Generat ed Referral 05/09/2023 03/05/2024 1 1 Specialty Diagnoses / Procedures Referred By Contac t Referred To Contact XR IMAGING Diagnoses Primary osteoarthritis of left hip Procedures XR HIP GENERAL 3V PELV/AP/LAT LEFT RADEX HIP UNILATERAL WITH PELVIS 2-3 VIEWS Eros Jay PA-C [address] [place] [address] [place] [id number] Referral ID Status Reason Start Date Expiration Date Visits Requested Visits Authorized [id number] Pending Review Auto-Generat ed Referral 3 04/04/2024 1 1 Specialty Diagnoses / Procedures Referred By Contac t Referred To Contact Anesthesiology Diagnoses Primary osteoarthritis of left hip Procedures CONSULT TO ANESTHESIOLOGY OFFICE/OUTPATIENT NEW HIGH MDM 60-74 MINUTES Eros Jay PA-C [address] [place] [id number] Referral ID Status Reason Start Date Expiration Date Visits Requested Visits Authorized [id number] Pending Review PCP Requested Referral 3 03/05/2024 1 1 Specialty Diagnoses / Procedures Referred By Contac t Referred To Contact [facility] Diagnoses Primary osteoarthritis of left hip Procedures ECG COMPLETE ECG ROUTINE ECG W/LEAST 12 LDS W/I&R Eros Jay PA-C [address] [place] [id number] [facility] [place] [address] [place] [id number] Referral ID Status Reason Start Date Expiration Date Visits Requested Visits Authorized [id number] Pending Review Auto-Generat ed Referral 3 03/05/2024 [...] or prosecute any alcohol or drug abuse patient.[facility] the event this information is protected by the Federal Confidentiality of Alcohol and Drug Abuse Patient Records regulations: The Federal rules restrict any use of the information to criminally investigate or prosecute any alcohol or drug abuse patient.[facility] the event this information is protected by the Federal Confidentiality of Alcohol and Drug Abuse Patient Records regulations: The Federal rules restrict any use of the information to criminally investigate or prosecute any alcohol or drug abuse patient.[facility] the event this information is protected by the Federal Confidentiality of Alcohol and Drug Abuse Patient Records regulations: The Federal rules restrict any use of the information to criminally investigate or prosecute any alcohol or drug abuse patient.[facility] the event this information is protected by the Federal Confidentiality of Alcohol and Drug Abuse Patient Records regulations: The Federal rules restrict any use of the information to criminally investigate or prosecute any alcohol or drug abuse patient.[facility] the event this information is protected by the Federal Confidentiality of Alcohol and Drug Abuse Patient Records regulations: The Federal rules restrict any use of the information to criminally investigate or prosecute any alcohol or drug abuse patient.[facility] the event this information is protected by the Federal Confidentiality of Alcohol and Drug Abuse Patient Records regulations: The Federal rules restrict any use of the information to criminally investigate or prosecute any alcohol or drug abuse patient.[facility] Hospital[facility] the event this information is protected by the Federal Confidentiality of Alcohol and Drug Abuse Patient Records regulations: The Federal rules restrict any use of the information to criminally investigate or prosecute any alcohol or drug abuse patient.[facility] Hospital[facility] the event this information is protected by the Federal Confidentiality of Alcohol and Drug Abuse Patient Records regulations: The Federal rules restrict any use of the information to criminally investigate or prosecute any alcohol or drug abuse patient.[facility] HospitalIn the event this information is protected by the Federal Confidentiality of Alcohol and Drug Abuse Patient Records regulations: The Federal rules restrict any use of the information to criminally investigate or prosecute any alcohol or drug abuse patient.[facility] HospitalIn the event this information is protected by the Federal Confidentiality of Alcohol and Drug Abuse Patient Records regulations: The Federal rules restrict any use of the information to criminally investigate or prosecute any alcohol or drug abuse patient.[facility] HospitalIn the event this information is protected by the Federal Confidentiality of Alcohol and Drug Abuse Patient Records regulations: The Federal rules restrict any use of the information to criminally investigate or prosecute any alcohol or drug abuse patient.[facility] HospitalIn the event this information is protected by the Federal Confidentiality of Alcohol and Drug Abuse Patient Records regulations: The Federal rules restrict any use of the information to criminally investigate or prosecute any alcohol or drug abuse patient.[facility] Hospital[facility] the event this information is protected by the Federal Confidentiality of Alcohol and Drug Abuse Patient Records regulations: The Federal rules restrict any use of the information to criminally investigate or prosecute any alcohol or drug abuse patient.[facility] HospitalIn the event this information is protected by the Federal Confidentiality of Alcohol and Drug Abuse Patient Records regulations: The Federal rules restrict any use of the information to criminally investigate or prosecute any alcohol or drug abuse patient.[facility] HospitalIn the event this information is protected by the Federal Confidentiality of Alcohol and Drug Abuse Patient Records regulations: The Federal rules restrict any use of the information to criminally investigate or prosecute any alcohol or drug abuse patient.[facility] HospitalIn the event this information is protected by the Federal Confidentiality of Alcohol and Drug Abuse Patient Records regulations: The Federal rules restrict any use of the information to criminally investigate or prosecute any alcohol or drug abuse patient.[facility] HospitalIn the event this information is protected by the Federal Confidentiality of Alcohol and Drug Abuse Patient Records regulations: The Federal rules restrict any use of the information to criminally investigate or prosecute any alcohol or drug abuse patient.[facility] HospitalIn the event this information is protected by the Federal Confidentiality of Alcohol and Drug Abuse Patient Records regulations: The Federal rules restrict any use of the information to criminally investigate or prosecute any alcohol or drug abuse patient.[facility] HospitalIn the event this information is protected by the Federal Confidentiality of Alcohol and Drug Abuse Patient Records regulations: The Federal rules restrict any use of the information to criminally investigate or prosecute any alcohol or drug abuse patient.[facility] HospitalIn the event this information is protected by the Federal Confidentiality of Alcohol and Drug Abuse Patient Records regulations: The Federal rules restrict any use of the information to criminally investigate or prosecute any alcohol or drug abuse patient.[facility] HospitalIn the event this information is protected by the Federal Confidentiality of Alcohol and Drug Abuse Patient Records regulations: The Federal rules restrict any use of the information to criminally investigate or prosecute any alcohol or drug abuse patient.[facility] HospitalIn the event this information is protected by the Federal Confidentiality of Alcohol and Drug Abuse Patient Records regulations: The Federal rules restrict any use of the information to criminally investigate or prosecute any alcohol or drug abuse patient.[facility] HospitalIn the event this information is protected by the Federal Confidentiality of Alcohol and Drug Abuse Patient Records regulations: The Federal rules restrict any use of the information to criminally investigate or prosecute any alcohol or drug abuse patient.[facility] HospitalIn the event this information is protected by the Federal Confidentiality of Alcohol and Drug Abuse Patient Records regulations: The Federal rules restrict any use of the information to criminally investigate or prosecute any alcohol or drug abuse patient.[facility] HospitalIn the event this information is protected by the Federal Confidentiality of Alcohol and Drug Abuse Patient Records regulations: The Federal rules restrict any use of the information to criminally investigate or prosecute any alcohol or drug abuse patient.[facility] HospitalIn the event this information is protected by the Federal Confidentiality of Alcohol and Drug Abuse Patient Records regulations: The Federal rules restrict any use of the information to criminally investigate or prosecute any alcohol or drug abuse patient.[facility] HospitalIn the event this information is protected by the Federal Confidentiality of Alcohol and Drug Abuse Patient Records regulations: The Federal rules restrict any use of the information to criminally investigate or prosecute any alcohol or drug abuse patient.[facility] HospitalIn the event this information is protected by the Federal Confidentiality of Alcohol and Drug Abuse Patient Records regulations: The Federal rules restrict any use of the information to criminally investigate or prosecute any alcohol or drug abuse patient.[facility] HospitalIn the event this information is protected by the Federal Confidentiality of Alcohol and Drug Abuse Patient Records regulations: The Federal rules restrict any use of the information to criminally investigate or prosecute any alcohol or drug abuse patient.[facility] HospitalIn the event this information is protected by the Federal Confidentiality of Alcohol and Drug Abuse Patient Records regulations: The Federal rules restrict any use of the information to criminally investigate or prosecute any alcohol or drug abuse patient.[facility] HospitalIn the event this information is protected by the Federal Confidentiality of Alcohol and Drug Abuse Patient Records regulations: The Federal rules restrict any use of the information to criminally investigate or prosecute any alcohol or drug abuse patient.[facility] HospitalIn the event this information is protected by the Federal Confidentiality of Alcohol and Drug Abuse Patient Records regulations: The Federal rules restrict any use of the information to criminally investigate or prosecute any alcohol or drug abuse patient.[facility] HospitalIn the event this information is protected by the Federal Confidentiality of Alcohol and Drug Abuse Patient Records regulations: The Federal rules restrict any use of the information to criminally investigate or prosecute any alcohol or drug abuse patient.[facility] HospitalIn the event this information is protected by the Federal Confidentiality of Alcohol and Drug Abuse Patient Records regulations: The Federal rules restrict any use of the information to criminally investigate or prosecute any alcohol or drug abuse patient.[facility] HospitalIn the event this information is protected by the Federal Confidentiality of Alcohol and Drug Abuse Patient Records regulations: The Federal rules restrict any use of the information to criminally investigate or prosecute any alcohol or drug abuse patient.[facility] HospitalIn the event this information is protected by the Federal Confidentiality of Alcohol and Drug Abuse Patient Records regulations: The Federal rules restrict any use of the information to criminally investigate or prosecute any alcohol or drug abuse patient.[facility] HospitalIn the event this information is protected by the Federal Confidentiality of Alcohol and Drug Abuse Patient Records regulations: The Federal rules restrict any use of the information to criminally investigate or prosecute any alcohol or drug abuse patient.[facility] HospitalIn the event this information is protected by the Federal Confidentiality of Alcohol and Drug Abuse Patient Records regulations: The Federal rules restrict any use of the information to criminally investigate or prosecute any alcohol or drug abuse patient.[facility] HospitalIn the event this information is protected by the Federal Confidentiality of Alcohol and Drug Abuse Patient Records regulations: The Federal rules restrict any use of the information to criminally investigate or prosecute any alcohol or drug abuse patient.[facility] HospitalIn the event this information is protected by the Federal Confidentiality of Alcohol and Drug Abuse Patient Records regulations: The Federal rules restrict any use of the information to criminally investigate or prosecute any alcohol or drug abuse patient.[facility] HospitalIn the event this information is protected by the Federal Confidentiality of Alcohol and Drug Abuse Patient Records regulations: The Federal rules restrict any use of the information to criminally investigate or prosecute any alcohol or drug abuse patient.[facility] HospitalIn the event this information is protected by the Federal Confidentiality of Alcohol and Drug Abuse Patient Records regulations: The Federal rules restrict any use of the information to criminally investigate or prosecute any alcohol or drug abuse patient.[facility] HospitalIn the event this information is protected by the Federal Confidentiality of Alcohol and Drug Abuse Patient Records regulations: The Federal rules restrict any use of the information to criminally investigate or prosecute any alcohol or drug abuse patient.[facility] HospitalIn the event this information is protected by the Federal Confidentiality of Alcohol and Drug Abuse Patient Records regulations: The Federal rules restrict any use of the information to criminally investigate or prosecute any alcohol or drug abuse patient.[facility] HospitalIn the event this information is protected by the Federal Confidentiality of Alcohol and Drug Abuse Patient Records regulations: The Federal rules restrict any use of the information to criminally investigate or prosecute any alcohol or drug abuse patient.[facility] HospitalIn the event this information is protected by the Federal Confidentiality of Alcohol and Drug Abuse Patient Records regulations: The Federal rules restrict any use of the information to criminally investigate or prosecute any alcohol or drug abuse patient.[facility] HospitalIn the event this information is protected by the Federal Confidentiality of Alcohol and Drug Abuse Patient Records regulations: The Federal rules restrict any use of the information to criminally investigate or prosecute any alcohol or drug abuse patient.[facility] HospitalIn the event this information is protected by the Federal Confidentiality of Alcohol and Drug Abuse Patient Records regulations: The Federal rules restrict any use of the information to criminally investigate or prosecute any alcohol or drug abuse patient.[facility] HospitalIn the event this information is protected by the Federal Confidentiality of Alcohol and Drug Abuse Patient Records regulations: The Federal rules restrict any use of the information to criminally investigate or prosecute any alcohol or drug abuse patient.[facility] HospitalIn the event this information is protected by the Federal Confidentiality of Alcohol and Drug Abuse Patient Records regulations: The Federal rules restrict any use of the information to criminally investigate or prosecute any alcohol or drug abuse patient.[facility] HospitalIn the event this information is protected by the Federal Confidentiality of Alcohol and Drug Abuse Patient Records regulations: The Federal rules restrict any use of the information to criminally investigate or prosecute any alcohol or drug abuse patient.[facility] HospitalIn the event this information is protected by the Federal Confidentiality of Alcohol and Drug Abuse Patient Records regulations: The Federal rules restrict any use of the information to criminally investigate or prosecute any alcohol or drug abuse patient.[facility] HospitalIn the event this information is protected by the Federal Confidentiality of Alcohol and Drug Abuse Patient Records regulations: The Federal rules restrict any use of the information to criminally investigate or prosecute any alcohol or drug abuse patient.[facility] HospitalIn the event this information is protected by the Federal Confidentiality of Alcohol and Drug Abuse Patient Records regulations: The Federal rules restrict any use of the information to criminally investigate or prosecute any alcohol or drug abuse patient.[facility] HospitalIn the event this information is protected by the Federal Confidentiality of Alcohol and Drug Abuse Patient Records regulations: The Federal rules restrict any use of the information to criminally investigate or prosecute any alcohol or drug abuse patient.[facility] HospitalIn the event this information is protected by the Federal Confidentiality of Alcohol and Drug Abuse Patient Records regulations: The Federal rules restrict any use of the information to criminally investigate or prosecute any alcohol or drug abuse patient.[facility] HospitalIn the event this information is protected by the Federal Confidentiality of Alcohol and Drug Abuse Patient Records regulations: The Federal rules restrict any use of the information to criminally investigate or prosecute any alcohol or drug abuse patient.[facility] HospitalIn the event this information is protected by the Federal Confidentiality of Alcohol and Drug Abuse Patient Records regulations: The Federal rules restrict any use of the information to criminally investigate or prosecute any alcohol or drug abuse patient.[facility] HospitalIn the event this information is protected by the Federal Confidentiality of Alcohol and Drug Abuse Patient Records regulations: The Federal rules restrict any use of the information to criminally investigate or prosecute any alcohol or drug abuse patient.[facility] HospitalIn the event this information is protected by the Federal Confidentiality of Alcohol and Drug Abuse Patient Records regulations: The Federal rules restrict any use of the information to criminally investigate or prosecute any alcohol or drug abuse patient.[facility] HospitalIn the event this information is protected by the Federal Confidentiality of Alcohol and Drug Abuse Patient Records regulations: The Federal rules restrict any use of the information to criminally investigate or prosecute any alcohol or drug abuse patient.[facility] HospitalIn the event this information is protected by the Federal Confidentiality of Alcohol and Drug Abuse Patient Records regulations: The Federal rules restrict any use of the information to criminally investigate or prosecute any alcohol or drug abuse patient.[facility] Reason for Visit (unrecogniz ed section and content) Specialty Diagnoses / Procedures Referred By Wanda leos Referred To Contact ADMITTING Diagnoses Stenosis of left carotid artery Preop testing Procedures TCAT IV STENT CRV CRTD ART EMBOLIC PROTECJ PERC TRANSCATH PLACEMENT INTRAVASCULAR STENT(S) CERV CAROTID ARTERY INCLUDING ANGIOPLASTY WHEN PERFORMED AND RAD S&I W/DISTAL EMBOLIC PROTECTION [facility] [address] [place] [id number] Referral ID Status Reason Start Date Expiration Date Visits Re quested Visits Authorized [id number] 1 1 Reason Comments 6 Month Exam [...] UNILATERAL WITH PELVIS 2-3 VIEWS Eros Jay, DORITAC [address] [place] [id number] Xr Imaging [place] [address] Referral ID Status Reason Start Date Expiration Date V isits Requested Visits Authorized [id number] Closed Auto-Generate d Referral 12/22/2022 01/21/2024 1 [...] 03/10/2023 Reason Comments Home Care Confirmation call Reason Comments Patient Question Care Teams (unrecognized sec tion and content) Closing Machine Operator Relationship Specialty Start Date End Date Alejandra Valle MD [address] [place] [address] PCP - General 08/26/08 Dixie Shin MD [address] [place] [address] Home Care Physician Orthopedics 01/16/20 Dixie Shin MD [address] [place] [address] Referring Orthopedics 01/16/20 Cecelia Pavon, PT [address] [place] [address] Material Planning Analyst Post Acute Care 01/18/20 Closing Machine Operator Relationship Specialty Start Date End Date Alejandra Valle MD [address] [place] [address] PCP - General 08/26/08 Dixie Shin MD [address] [place] [address] Home Care Physician Orthopedics 01/16/20 Dixie Shin MD [address] [place] [address] Referring Orthopedics 01/16/20 Cecelia Pavon, PT [address] [place] [address] Material Planning Analyst Post Acute Care 01/18/20 Closing Machine Operator Relationship Specialty Start Date End Date Alejandra Valle MD [address] [place] [address] PCP - General 08/26/08 Dixie Shin MD [address] [place] [address] Home Care Physician Orthopedics 01/16/20 Dixie Shin MD [address] [place] [address] Referring Orthopedics 01/16/20 Cecelia Pavon, PT [address] [place] [address] Material Planning Analyst Post Acute Care 01/18/20 Closing Machine Operator Relationship Specialty Start Date End Date Alejandra Valle MD [address] [facility] [place] [address] PCP - General 08/26/08 Dixie Shin MD [address] [place] [address] Home Care Physician Orthopedics 01/16/20 Dixie Shin MD [address] [facility] [place] [address] Referring Orthopedics 01/16/20 Cecelia Pavon, PT [address] [place] [address] Material Planning Analyst Post Acute Care 01/18/20 Closing Machine Operator Relationship Specialty Start Date End Date Alejandra Valle MD [address] [place] [address] PCP - General 08/26/08 Dixie Shin MD [address] [place] [address] Home Care Physician Orthopedics 01/16/20 Dixie Shin MD [address] [place] [address] Referring Orthopedics 01/16/20 Cecelia Pavon, PT [address] [place] [address] Material Planning Analyst Post Acute Care 01/18/20 Closing Machine Operator Relationship Specialty Start Date End Date Alejandra Valle MD [address] [place] [address] PCP - General 08/26/08 Dixie Shin MD [address] [place] [address] Home Care Physician Orthopedics 01/16/20 Dixie Shin MD [address] [place] [address] Referring Orthopedics 01/16/20 Cecelia Pavon, PT [address] [place] [address] Material Planning Analyst Post Acute Care 01/18/20 Closing Machine Operator Relationship Specialty Start Date End Date Alejandra Valle MD [address] [facility] [place] [address] PCP - General 08/26/08 Dixie Shin MD [address] [place] [address] Home Care Physician Orthopedics 01/16/20 Dixie Shin MD [address] [place] [address] Referring Orthopedics 01/16/20 Cecelia Pavon, PT [address] [place] [address] Material Planning Analyst Post Acute Care 01/18/20 Closing Machine Operator Relationship Specialty Start Date End Date Alejandra Valle MD [address] [place] [address] PCP - General 08/26/08 Dixie Shin MD [address] [place] [address] Home Care Physician Orthopedics 01/16/20 Dixie Shin MD [address] [place] [address] Referring Orthopedics 01/16/20 Cecelia Pavon, PT [address] [place] [address] Material Planning Analyst Post Acute Care 01/18/20 Closing Machine Operator Relationship Specialty Start Date End Date Alejandra Valle MD [address] [place] [address] PCP - General 08/26/08 Dixie Shin MD [address] [place] [address] Home Care Physician Orthopedics 01/16/20 Dixie Shin MD [address] [place] [address] Referring Orthopedics 01/16/20 Cecelia Pavon, PT [address] [place] [address] Material Planning Analyst Post Acute Care 01/18/20 Closing Machine Operator Relationship Specialty Start Date End Date Alejandra Valle MD [address] [place] [address] PCP - General 08/26/08 Dixie Shin MD [address] [place] [address] Home Care Physician Orthopedics 01/16/20 Dixie Shin MD [address] [place] [address] Referring Orthopedics 01/16/20 Cecelia Pavon, PT [address] [place] [address] Material Planning Analyst Post Acute Care 01/18/20 Closing Machine Operator Relationship Specialty Start Date End Date Alejandra Valle MD [address] [place] [address] PCP - General 08/26/08 Dixie Shin MD [address] [place] [address] Home Care Physician Orthopedics 01/16/20 Dixie Shin MD [address] [facility] [place] [address] Referring Orthopedics 01/16/20 Cecelia Pavon, PT [address] [place] [address] Material Planning Analyst Post Acute Care 01/18/20 Radha Carrizales RN [address] [place] [address] Asphalt Mixer 10/18/21 Closing Machine Operator Relationship Specialty Start Date End Date Alejandra Valle MD [address] [place] [address] PCP - General 08/26/08 Dixie Shin MD [address] [place] [address] Home Care Physician Orthopedics 01/16/20 Dixie Shin MD [address] [place] [address] Referring Orthopedics 01/16/20 Cecelia Pavon, PT [address] [place] [address] Material Planning Analyst Post Acute Care 01/18/20 Radha Carrizales RN [address] [place] [address] Asphalt Mixer 10/18/21 Closing Machine Operator Relationship Specialty Start Date End Date Alejandra Valle MD [address] [place] [address] PCP - General 08/26/08 Dixie Shin MD [address] [place] [address] Home Care Provider Orthopedics 01/16/20 Dixie Shin MD [address] [place] [address] Referring Orthopedics 01/16/20 Cecelia Pavon, PT [address] [place] [address] Material Planning Analyst Post Acute Care 01/18/20 Radha Carrizales, RN [address] [place] [address] Asphalt Mixer 10/18/21 Closing Machine Operator Relationship Specialty Start Date End Date Alejandra Valle MD [address] [place] [address] PCP - General 08/26/08 Dixie Shin MD [address] [place] [address] Home Care Provider Orthopedics 01/16/20 Dixie Shin MD [address] [place] [address] Referring Orthopedics 01/16/20 Cecelia Pavon, PT [address] [place] [address] Material Planning Analyst Post Acute Care 01/18/20 Radha Carrizales, RN [address] [place] [address] Asphalt Mixer 10/18/21 Closing Machine Operator Relationship Specialty Start Date End Date Alejandra Valle MD [address] [place] [address] PCP - General 08/26/08 Dixie Shin MD [address] [place] [address] Home Care Provider Orthopedics 01/16/20 Dixie Shin MD [address] [place] [address] Referring Orthopedics 01/16/20 Cecelia Pavon, PT [address] [place] [address] Material Planning Analyst Post Acute Care 01/18/20 Radha Carrizales RN [address] [place], [place] [id number] Asphalt Mixer 10/18/21 Closing Machine Operator Relationship Specialty Start Date End Date Alejandra Valle MD [address] [place] [address] PCP - General 08/26/08 Dixie Shin MD [address] [place] [address] Home Care Provider Orthopedics 01/16/20 Dixie Shin MD [address] [place] [address] Referring Orthopedics 01/16/20 Cecelia Pavon, PT [address] [place] [address] Material Planning Analyst Post Acute Care 01/18/20 Radha Carrizales RN [address] [place] [address] Asphalt Mixer 10/18/21 Closing Machine Operator Relationship Specialty Start Date End Date Alejandra Valle MD [address] [place] [address] PCP - General 08/26/08 Dixie Shin MD [address] [place] [address] Home Care Provider Orthopedics 01/16/20 Dixie Shin MD [address] [place] [address] Referring Orthopedics 01/16/20 Cecelia Pavon, PT [address] [place] [address] Material Planning Analyst Post Acute Care 01/18/20 Radha Carrizales RN [address] [place] [address] Asphalt Mixer 10/18/21 Closing Machine Operator Relationship Specialty Start Date End Date Alejandra Valle MD [address] [place] [address] PCP - General 08/26/08 Dixie Shin MD [address] [place] [address] Home Care Provider Orthopedics 01/16/20 Dixie Shin MD [address] [place] [address] Referring Orthopedics 01/16/20 Cecelia Pavon, PT [address] [place] [address] Material Planning Analyst Post Acute Care 01/18/20 Radha Carrizales RN [address] [place] [address] Asphalt Mixer 10/18/21 Closing Machine Operator Relationship Specialty Start Date End Date Alejandra Valle MD [address] [place] [address] PCP - General 08/26/08 Dixie Shin MD [address] [place] [address] Home Care Provider Orthopedics 01/16/20 Dixie Shin MD [address] [place] [address] Referring Orthopedics 01/16/20 Cecelia Pavon, PT [address] [place] [address] Material Planning Analyst Post Acute Care 01/18/20 Radha Carrizales RN [address] [place] [address] Asphalt Mixer 10/18/21 Closing Machine Operator Relationship Specialty Start Date End Date Alejandra Valle MD [address] [place] [address] PCP - General 08/26/08 Dixie Shin MD [address] [place] [address] Home Care Provider Orthopedics 01/16/20 Dixie Shin MD [address] [place] [address] Referring Orthopedics 01/16/20 Cecelia Pavon, PT [address] [place] [address] Material Planning Analyst Post Acute Care 01/18/20 Tameka Arriola, rouge presserAsphalt Mixer 04/27/22 Closing Machine Operator Relationship Specialty Start Date End Date Alejandra Valle MD [address] [place] [address] PCP - General 08/26/08 Dixie Shin MD [address] [place] [address] Home Care Provider Orthopedics 01/16/20 Dixie Shin MD [address] [place] [address] Referring Orthopedics 01/16/20 Cecelia Pavon, PT [address] [place] [address] Material Planning Analyst Post Acute Care 01/18/20 Tameka Arriola, rouge presserAsphalt Mixer 04/27/22 Closing Machine Operator Relationship Specialty Start Date End Date Alejandra Valle MD [address] [place] [address] PCP - General 08/26/08 Dixie Shin MD [address] [place] [address] Home Care Provider Orthopedics 01/16/20 Dixie Shin MD [address] [facility] [place] [address] Referring Orthopedics 01/16/20 Cecelia Pavon, PT [address] [place] [address] Material Planning Analyst Post Acute Care 01/18/20 Tameka Arriola, rouge presserAsphalt Mixer 04/27/22 Closing Machine Operator Relationship Specialty Start Date End Date Alejandra Valle MD [address] [place] [address] PCP - General 08/26/08 Dixie Shin MD [address] [place] [address] Home Care Provider Orthopedics 01/16/20 Dixie Shin MD [address] [place] [address] Referring Orthopedics 01/16/20 Cecelia Pavon, PT [address] [place] [address] Material Planning Analyst Post Acute Care 01/18/20 Tameka Arriola, rouge presserAsphalt Mixer 04/27/22 Closing Machine Operator Relationship Specialty Start Date End Date Alejandra Valle MD [address] [place] [address] PCP - General 08/26/08 Dixie Shin MD [address] [place] [address] Home Care Provider Orthopedics 01/16/20 Dixie Shin MD [address] [place] [address] Referring Orthopedics 01/16/20 Cecelia Pavon, PT [address] [place] [address] Material Planning Analyst Post Acute Care 01/18/20 Tameka Arriola, rouge presserAsphalt Mixer 04/27/22 Closing Machine Operator Relationship Specialty Start Date End Date Alejandra Valle MD [address] [place] [address] PCP - General 08/26/08 Dixie Shin MD [address] [place] [address] Home Care Provider Orthopedics 01/16/20 Dixie Shin MD [address] [place] [address] Referring Orthopedics 01/16/20 Cecelia Pavon, PT [address] [place] [address] Material Planning Analyst Post Acute Care 01/18/20 Ashley Garcia RN [address] [place] [address] Asphalt Mixer 08/30/22 Closing Machine Operator Relationship Specialty Start Date End Date Alejandra Valle MD [address] [place] [address] PCP - General 08/26/08 Dixie Shin MD [address] [place] [address] Home Care Provider Orthopedics 01/16/20 Dixie Shin MD [address] [place] [address] Referring Orthopedics 01/16/20 Cecelia Pavon, PT [address] [place] [address] Material Planning Analyst Post Acute Care 01/18/20 Ashley Garcia, DESTINEE [address] [place] [address] Asphalt Mixer 08/30/22 Closing Machine Operator Relationship Specialty Start Date End Date Alejandra Valle MD [address] [place] [address] PCP - General 08/26/08 Dixie Shin MD [address] [place] [address] Home Care Provider Orthopedics 01/16/20 Dixie Shin MD [address] [place] [address] Referring Orthopedics 01/16/20 Cecelia Pavon, PT [address] [place] [address] Material Planning Analyst Post Acute Care 01/18/20 Ashley Garcia RN [address] [place] [address] Asphalt Mixer 08/30/22 Closing Machine Operator Relationship Specialty Start Date End Date Alejandra Valle MD [address] [place] [address] PCP - General 08/26/08 Dixie Shin MD [address] [place] [address] Home Care Provider Orthopedics 01/16/20 Dixie Shin MD [address] [place] [address] Referring Orthopedics 01/16/20 Cecelia Pavon, PT [address] [place] [address] Material Planning Analyst Post Acute Care 01/18/20 Ashley Garcia RN [address] [place], [place] [id number] Asphalt Mixer 08/30/22 Closing Machine Operator Relationship Specialty Start Date End Date Alejandra Valle MD [address] [place] [address] PCP - General 08/26/08 Dixie Shin MD [address] [place] [address] Home Care Provider Orthopedics 01/16/20 Dixie Shin MD [address] [facility] [place] [address] Referring Orthopedics 01/16/20 Cecelia Pavon, PT [address] [place] [address] Material Planning Analyst Post Acute Care 01/18/20 Ashley Garcia RN [address] [place] [address] Asphalt Mixer 08/30/22 Closing Machine Operator Relationship Specialty Start Date End Date Alejandra Valle MD [address] [place] [address] PCP - General 08/26/08 Dixie Shin MD [address] [place] [address] Home Care Provider Orthopedics 01/16/20 Dixie Shin MD [address] [place] [address] Referring Orthopedics 01/16/20 Cecelia Pavon, PT [address] [place] [address] Material Planning Analyst Post Acute Care 01/18/20 Ashley Garcia RN [address] [place] [address] Asphalt Mixer 08/30/22 Closing Machine Operator Relationship Specialty Start Date End Date Alejandra Valle MD [address] [place], [place] [address] PCP - General 08/26/08 Dixie Shin MD [address] [place] [address] Home Care Provider Orthopedics 01/16/20 Dixie Shin MD [address] [place] [address] Referring Orthopedics 01/16/20 Cecelia Pavon, PT [address] [place] [address] Material Planning Analyst Post Acute Care 01/18/20 Ashley Garcia RN [address] [place] [address] Asphalt Mixer 08/30/22 Closing Machine Operator Relationship Specialty Start Date End Date Alejandra Valle MD [address] [place] [address] PCP - General 08/26/08 Dixie Shin MD [address] [place] [address] Home Care Provider Orthopedics 01/16/20 Dixie Shin MD [address] [place] [address] Referring Orthopedics 01/16/20 Cecelia Pavon, PT [address] [place] [address] Material Planning Analyst Post Acute Care 01/18/20 Ashley Garcia RN [address] [place] [address] Asphalt Mixer 08/30/22 Closing Machine Operator Relationship Specialty Start Date End Date Alejandra Valle MD [address] [place] [address] PCP - General 08/26/08 Dixie Shin MD [address] [place] [address] Home Care Provider Orthopedics 01/16/20 Dixie Shin MD [address] [place] [address] Referring Orthopedics 01/16/20 Cecelia Pavon, PT [address] [place] [address] Material Planning Analyst Post Acute Care 01/18/20 Ashley Garcia RN [address] [place] [address] Asphalt Mixer 08/30/22 Closing Machine Operator Relationship Specialty Start Date End Date Alejandra Valle MD [address] [place] [address] PCP - General 08/26/08 Dixie Shin MD [address] [place] [address] Home Care Provider Orthopedics 01/16/20 Dixie Shin MD [address] [place] [address] Referring Orthopedics 01/16/20 Cecelia Pavon, PT [address] [place] [address] Material Planning Analyst Post Acute Care 01/18/20 Ashley Garcia, DESTINEE [address] [place] [address] Asphalt Mixer 08/30/22 Closing Machine Operator Relationship Specialty Start Date End Date Alejandra Valle MD [address] [place], [place] [address] PCP - General 08/26/08 Dixie Shin MD [address] [place], [place] [id number] Home Care Provider Orthopedics 01/16/20 Dixie Shin MD [address] [place] [address] Referring Orthopedics 01/16/20 Cecelia Pavon, PT [address] [place] [address] Material Planning Analyst Post Acute Care 01/18/20 Tameka Arriola, rouge presserAsphalt Mixer 04/27/22 08/29/22 Closing Machine Operator Relationship Specialty Start Date End Date Alejandra Valle MD [address] [place], [place] [address] PCP - General 08/26/08 Dixie Shin MD [address] [place] [address] Home Care Provider Orthopedics 01/16/20 Dixie Shin MD [address] [place], [place] [id number] Referring Orthopedics 01/16/20 Cecelia Pavon, PT [address] [place] [address] Material Planning Analyst Post Acute Care 01/18/20 Ashley Garcia, DESTINEE [address] [place] [address] Asphalt Mixer 08/30/22 Closing Machine Operator Relationship Specialty Start Date End Date Alejandra Valle MD [address] [place] [address] PCP - General 08/26/08 Dixie Shin MD [address] [place] [address] Home Care Provider Orthopedics 01/16/20 Dixie Shin MD [address] [place] [address] Referring Orthopedics 01/16/20 Cecelia Pavon, PT [address] [place] [address] Material Planning Analyst Post Acute Care 01/18/20 Ashley Garcia RN [address] [place] [address] Asphalt Mixer 08/30/22 Closing Machine Operator Relationship Specialty Start Date End Date Alejandra Valle MD [address] [place] [address] PCP - General 08/26/08 Dixie Shin MD [address] [place] [address] Home Care Provider Orthopedics 01/16/20 Dixie Shin MD [address] [place] [address] Referring Orthopedics 01/16/20 Cecelia Pavon, PT [address] [place] [address] Material Planning Analyst Post Acute Care 01/18/20 Ashley Garcia RN [address] [place] [address] Asphalt Mixer 08/30/22 Closing Machine Operator Relationship Specialty Start Date End Date Alejandra Valle MD [address] [place] [address] PCP - General 08/26/08 Dixie Shin MD [address] [place] [address] Home Care Provider Orthopedics 01/16/20 Dixie Shin MD [address] [place] [address] Referring Orthopedics 01/16/20 Cecelia Pavon, PT [address] [place] [address] Material Planning Analyst Post Acute Care 01/18/20 Ashley Garcia RN [address] [place] [address] Asphalt Mixer 08/30/22 Closing Machine Operator Relationship Specialty Start Date End Date Alejandra Valle MD [address] [place] [address] PCP - General 08/26/08 Ashley Garcia RN [address] [place] [address] Asphalt Mixer 08/30/22 Dixie Shin MD [address] [place] [address] Home Care Provider Orthopedics 04/26/23 Closing Machine Operator Relationship Specialty Start Date End Date Alejandra Valle MD [address] [place] [address] PCP - General 08/26/08 Ashley Garcia RN [address] [place] [address] Asphalt Mixer 08/30/22 Dixie Shin MD [address] [place] [address] Home Care Provider Orthopedics 04/26/23 Javier Demarco PA-C [address] [place] [address] Referring Orthopedics 04/27/23 Lisseth Pelletier, PT [address] [place] [address] Material Planning Analyst Post Acute Care 04/27/23 [place] [address] [place] [address] Home Care Provider Orthopedics 04/30/23 Surya Elliott PA-C [address] [place] [address] Referring Orthopedics 04/30/23 Closing Machine Operator Relationship Specialty Start Date End Date Alejandra Valle MD [address] [place], [place] [id number] PCP - General 08/26/08 Ashley Garcia RN [address] [place] [address] Asphalt Mixer 08/30/22 Dixie Shin MD [address] [place] [address] Home Care Provider Orthopedics 04/26/23 Javier Demarco PA-C [address] [place] [address] Referring Orthopedics 04/27/23 Lisseth Pelletier, PT [address] [place] [address] Material Planning Analyst Post Acute Care 04/27/23 [place] [address] [place] [address] Home Care Provider Orthopedics 04/30/23 Surya Elliott PA-C [address] [place] [address] Referring Orthopedics 04/30/23 Closing Machine Operator Relationship Specialty Start Date End Date Alejandra Valle MD [address] [place] [address] PCP - General 08/26/08 Ashley Garcia, RN [address] [place] [address] Asphalt Mixer 08/30/22 Dixie Shin MD [address] [place] [address] Home Care Provider Orthopedics 04/26/23 Javier Demarco PA-C [address] [place] [address] Referring Orthopedics 04/27/23 Lisseth Pelletier, PT [address] [place] [address] Material Planning Analyst Post Acute Care 04/27/23 [place] [address] [place] [address] Home Care Provider Orthopedics 04/30/23 Surya Elliott PA-C [address] [place], [place] [id number] Referring Orthopedics 04/30/23 Closing Machine Operator Relationship Specialty Start Date End Date Alejandra Valle MD [address] [place] [address] PCP - General 08/26/08 Ashley Garcia, DESTINEE [address] [place] [address] Asphalt Mixer 08/30/22 Dixie Shin MD [address] [place], [place] [id number] Home Care Provider Orthopedics 04/26/23 Javier Demarco PA-C [address] [place] [address] Referring Orthopedics 04/27/23 Lisseth Pelletier, PT [address] [place] [address] Material Planning Analyst Post Acute Care 04/27/23 [place] [address] [place] [address] Home Care Provider Orthopedics 04/30/23 Surya Elliott PA-C [address] [place], [place] [id number] Referring Orthopedics 04/30/23 INFORMATION SOURCE (unrecogn ized section and content) [...] BE BASED ON THE PRIMARY CLINICAL RECORDS. [facility]. provides no warranty or guarantee of the accuracy or completeness of information in this document.
--- OUTSIDE RECORDS SUMMARY | 2023-05-04 17:43 | XMS RPT_ITS | CCD ---
Author Name Unknown Address [address] [place] [address] Organization [facility] Care Team Providers Care Product Marketing Coordinator Name Role Phone Alejandra Valle MD Primary [...] D Attending Unavailable Lien WILKES, Javier Unavailable Liyah PT, Lisseth Unavailable Janusz WATTS, Concepcion Unavailable Alea WILKES, Surya Unavailable [phone] Allergies Allergy Classification Reported Allergen(s) Allergy Type Date of Onset Reaction(s) Facility (20 sources) Acetaminophen; Translations: [ACETAMINOPHEN] Drug Allergy 5 Intolerance [facility] Work Phone: (20 sources) Aspirin; Translations: [ASPIRIN] Drug Allergy 5 Intolerance [facility] Work Phone: (20 sources) Codeine; Translations: [CODEINE] Drug Allergy 5 GI Upset [facility] Work Phone: (20 sources) Morphine; Translations: [MORPHINE] Drug Allergy 5 Other: See Comments, GI Upset [facility] Work Phone: (20 sources) bee stings and insect bites [Other] Propensity to adverse reactions 6 Swelling [facility] Work Phone: (9 sources) Bee Sting; Translations: [BEE STING] Allergy to substance 4 Anaphylaxis [facility] Work Phone: (8 sources) Acetaminophen / oxyCODONE; Translations: [OXYCODONE-ACETAM INOPHEN] Drug Allergy 4 Other: See Comments [facility] (1 source) OTHER; Translations: [OTHER] Propensity to adverse reactions (disorder) 6 [facility] Medications Current Medications Medication Drug Class(es) Dates Sig (Normalized) Sig (Original) acetaminophen 500 mg oral tablet (7 sources) Start: 05-01-2023 End: 05-08-2023 take 2 [...] Translations: [Dislocation of prosthetic joint, initial encounter ([facility])] Onset: 04-29-2023 Episodic Coronary atherosclerosis and other heart disease (20 sources) Coronary atherosclerosis; Translations: [Atherosclerotic heart disease of [place] coronary artery without angina pectoris] Onset: 01-09-2019 [...] 12-27-2020 Chronic Joint disorders and dislocations; trauma-related (8 sources) Unspecified dislocation of left hip, subsequent [...] 97.5 [degF] Cynthia Hawkinser OT/L Work Phone: [facility] 05-03-2023 14:58-0500 Diastolic blood pressure 68 mm[Hg] Cynthia Abrahamchler OT/L Work Phone: [facility] 05-03-2023 14:58-0500 Heart rate 81 /min Cynthia Abrahamchler OT/L Work Phone: [facility] 05-03-2023 14:58-0500 Respiratory rate 18 /min Cynthia Hawkinser OT/L Work Phone: [facility] 05-03-2023 14:58-0500 SaO2% (BldA) [Mass fraction] 92 % Cynthia Abrahamchler OT/L Work Phone: [facility] 05-03-2023 14:58-0500 Systolic blood pressure 140 mm[Hg] Cynthia Abrahamchler OT/L Work Phone: [facility] 05-03-2023 10:49-0500 Body temperature 97.39 [degF] Lisseth Halderman-Bowling PT Work Phone: [facility] 05-03-2023 10:49-0500 Diastolic blood pressure 78 mm[Hg] Lisseth Halderman-Bowling PT Work Phone: [facility] 05-03-2023 10:49-0500 Heart rate 80 /min Lisseth Halderman-Bowling PT Work Phone: [facility] 05-03-2023 10:49-0500 Respiratory rate 18 /min Lisseth Halderman-Bowling PT Work Phone: [facility] 05-03-2023 10:49-0500 SaO2% (BldA) [Mass fraction] 96 % Lisseth Halderman-Bowling PT Work Phone: [facility] 05-03-2023 10:49-0500 Systolic blood pressure 160 mm[Hg] Lisseth Halderman-Bowling PT Work Phone: [facility] 01-15-2023 12:47-0400 Body weight 98.43 kg Alejandra Valle MD Work Phone: [facility] 01-15-2023 12:47-0400 Diastolic blood pressure 72 mm[Hg] Alejandra Valle MD Work Phone: [facility] 01-15-2023 12:47-0400 Heart rate 72 /min Alejandra Valle MD Work Phone: [facility] 01-15-2023 12:47-0400 Respiratory rate 16 /min Alejandra Valle MD Work Phone: [facility] 01-15-2023 12:47-0400 Systolic blood pressure 128 mm[Hg] Alejandra Valle MD Work Phone: [facility] 10-02-2022 14:49-0400 Body temperature 97.9 [degF] Rizwana Praisler-Wood ETHICS OFFICER.INSTRUMENTATION CHEMIST Work Phone: [facility] 10-02-2022 14:49-0400 Body weight 100.25 kg Rizwana Praisler-Wood ETHICS OFFICER.INSTRUMENTATION CHEMIST Work Phone: [facility] 10-02-2022 14:49-0400 Diastolic blood pressure 72 mm[Hg] Rizwana Praisler-Wood ETHICS OFFICER.INSTRUMENTATION CHEMIST Work Phone: [facility] 10-02-2022 14:49-0400 Heart rate 76 /min Rizwana Praisler-Wood ETHICS OFFICER.INSTRUMENTATION CHEMIST Work Phone: [facility] 10-02-2022 14:49-0400 Respiratory rate 16 /min Rizwana Praisler-Wood ETHICS OFFICER.INSTRUMENTATION CHEMIST Work Phone: [facility] 10-02-2022 14:49-0400 SaO2% (BldA) [Mass fraction] 96 % Rizwana Praisler-Wood ETHICS OFFICER.INSTRUMENTATION CHEMIST Work Phone: [facility] 10-02-2022 14:49-0400 Systolic blood pressure 118 mm[Hg] Rizwana Praisler-Wood ETHICS OFFICER.INSTRUMENTATION CHEMIST Work Phone: [facility] 09-11-2022 14:43-0400 Body temperature 97.5 [degF] Rizwana Praisler-Wood ETHICS OFFICER.INSTRUMENTATION CHEMIST Work Phone: [facility] 09-11-2022 14:43-0400 Body weight 99.61 kg Rizwana Praisler-Wood ETHICS OFFICER.INSTRUMENTATION CHEMIST Work Phone: [facility] 09-11-2022 14:43-0400 Diastolic blood pressure 62 mm[Hg] Rizwana Praisler-Wood ETHICS OFFICER.INSTRUMENTATION CHEMIST Work Phone: [facility] 09-11-2022 14:43-0400 Heart rate 72 /min Rizwana Praisler-Wood ETHICS OFFICER.INSTRUMENTATION CHEMIST Work Phone: [facility] 09-11-2022 14:43-0400 Respiratory rate 18 /min Rizwana Praisler-Wood ETHICS OFFICER.INSTRUMENTATION CHEMIST Work Phone: [facility] 09-11-2022 14:43-0400 SaO2% (BldA) [Mass fraction] 95 % Rizwana Praisler-Wood ETHICS OFFICER.INSTRUMENTATION CHEMIST Work Phone: [facility] 09-11-2022 14:43-0400 Systolic blood pressure 116 mm[Hg] Rizwana Praisler-Wood ETHICS OFFICER.INSTRUMENTATION CHEMIST Work Phone: [facility] 07-12-2022 14:31-0400 Diastolic blood pressure 62 mm[Hg] Diomedes Riddle MD Work Phone: [facility] 07-12-2022 14:31-0400 Heart rate 71 /min Diomedes Riddle MD Work Phone: [facility] 07-12-2022 14:31-0400 Systolic blood pressure 133 mm[Hg] Diomedes Riddle MD Work Phone: [facility] 01-18-2022 14:36-0400 Diastolic blood pressure 58 mm[Hg] Diomedes Riddle MD Work Phone: [facility] 01-18-2022 14:36-0400 Heart rate 66 /min Diomedes Riddle MD Work Phone: [facility] 01-18-2022 14:36-0400 Systolic blood pressure 124 mm[Hg] Diomedes Riddle MD Work Phone: [facility] 11-25-2021 11:21-0400 Body temperature 97.59 [degF] Pauly Bowman ETHICS OFFICER.INSTRUMENTATION CHEMIST Work Phone: [facility] 11-25-2021 11:21-0400 Body weight 97.07 kg Pauly Bowman ETHICS OFFICER.INSTRUMENTATION CHEMIST Work Phone: [facility] 11-25-2021 11:21-0400 Diastolic blood pressure 76 mm[Hg] Pauly Reedk ETHICS OFFICER.INSTRUMENTATION CHEMIST Work Phone: [facility] 11-25-2021 11:21-0400 Heart rate 69 /min Pauly Colby ETHICS OFFICER.INSTRUMENTATION CHEMIST Work Phone: [facility] 11-25-2021 11:21-0400 Respiratory rate 18 /min Pauly Reedk ETHICS OFFICER.INSTRUMENTATION CHEMIST Work Phone: [facility] 11-25-2021 11:21-0400 SaO2% (BldA) [Mass fraction] 97 % Paulyanjali Reedk ETHICS OFFICER.INSTRUMENTATION CHEMIST Work Phone: [facility] 11-25-2021 11:21-0400 Systolic blood pressure 128 mm[Hg] Pauly Reedk ETHICS OFFICER.INSTRUMENTATION CHEMIST Work Phone: [facility] 08-18-2021 09:42-0400 Body temperature 99.3 [degF] Diomedes Riddle MD Work Phone: [facility] 08-18-2021 09:42-0400 Diastolic blood pressure 61 mm[Hg] Diomedes Riddle MD Work Phone: [facility] 08-18-2021 09:42-0400 Heart rate 68 /min Diomedes Riddle MD Work Phone: [facility] 08-18-2021 09:42-0400 Systolic blood pressure 137 mm[Hg] Diomedes Riddle MD Work Phone: [facility] 07-25-2021 09:55-0400 Body weight 95.71 kg Alejanrda Valle MD Work Phone: [facility] 07-25-2021 09:55-0400 Diastolic blood pressure 72 mm[Hg] Alejandra Valle MD Work Phone: [facility] 07-25-2021 09:55-0400 Heart rate 74 /min Alejandra Valle MD Work Phone: [facility] 07-25-2021 09:55-0400 Respiratory rate 16 /min Alejandra Valle MD Work Phone: [facility] 07-25-2021 09:55-0400 Systolic blood pressure 126 mm[Hg] Alejandra Valle MD Work Phone: [facility] 07-18-2021 12:12-0400 Body height 170.2 cm Ashleigh Marsh ETHICS OFFICER.INSTRUMENTATION CHEMIST Work Phone: [facility] 07-18-2021 12:12-0400 Body temperature 98.4 [degF] Ashleigh Jacober ETHICS OFFICER.INSTRUMENTATION CHEMIST Work Phone: [facility] 07-18-2021 12:12-0400 Body weight 94.85 kg Ashleigh Marsh ETHICS OFFICER.INSTRUMENTATION CHEMIST Work Phone: [facility] 07-18-2021 12:12-0400 Diastolic blood pressure 62 mm[Hg] Ashleigh Jacober ETHICS OFFICER.INSTRUMENTATION CHEMIST Work Phone: [facility] 07-18-2021 12:12-0400 Heart rate 71 /min Ashleigh Marsh ETHICS OFFICER.INSTRUMENTATION CHEMIST Work Phone: [facility] 07-18-2021 12:12-0400 Respiratory rate 18 /min Ashleigh Marsh ETHICS OFFICER.INSTRUMENTATION CHEMIST Work Phone: [facility] 07-18-2021 12:12-0400 SaO2% (BldA) [Mass fraction] 96 % Ashleigh Marsh ETHICS OFFICER.INSTRUMENTATION CHEMIST Work Phone: [facility] 07-18-2021 12:12-0400 Systolic blood pressure 123 mm[Hg] Ashleigh Marsh ETHICS OFFICER.INSTRUMENTATION CHEMIST Work Phone: [facility] 07-13-2021 13:10-0400 Body weight 93.12 kg Alejandra Valle MD Work Phone: [facility] 07-13-2021 13:10-0400 Diastolic blood pressure 74 mm[Hg] Alejandra Valle MD Work Phone: [facility] 07-13-2021 13:10-0400 Heart rate 71 /min Alejandra Valle MD Work Phone: [facility] 07-13-2021 13:10-0400 Respiratory rate 16 /min Alejandra Valle MD Work Phone: [facility] 07-13-2021 13:10-0400 Systolic blood pressure 134 mm[Hg] Alejandra Valle MD Work Phone: [facility] Encounters Encounter Date Encounter Type Care Provider Facility Start: 05-04-2023 End: 05-04-2023 Home visit Phyllis SUÁREZ Work Phone: [facility] Procedures Date Procedure Procedure Detail Performing Clinician Start: 04-13-2023 Antibody screen ALEJANDRA PERKINS Plan of Treatment Date Care Activity Detail Author Start: 10-12-2026 Urine microalbumin profile [facility] Start: 04-29-2024 Creatinine measurement Serum Creatinine [facility] Start: 04-27-2024 Complete blood count Hemoglobin/Hematocrit [facility] Start: 04-27-2024 Creatinine measurement Serum Creatinine [facility] Start: 04-13-2024 BP Controlled (<130/80) BP Controlled (<130/80) [facility] Start: 01-16-2024 Annual PCP Team Chronic Disease Visit Annual PCP Team Chronic Disease Visit [facility] Start: 01-16-2024 BP Controlled (<130/80) BP Controlled (<130/80) [facility] Start: 01-13-2024 Creatinine measurement Serum Creatinine [facility] Start: 01-13-2024 Hepatitis B surface antibody level LDL Cholesterol [facility] Start: 01-13-2024 Serum Creatinine Serum Creatinine [facility] Start: 10-12-2023 Hemoglobin A1c measurement HbA1C [facility] Start: 10-03-2023 BP CONTROLLED (<130/80) BP CONTROLLED (<130/80) [facility] Start: 09-12-2023 BP CONTROLLED (<130/80) BP CONTROLLED (<130/80) [facility] Start: 07-17-2023 End: 10-16-2023 ALBUMIN/CREAT RATIO RND UR ALBUMIN/CREAT RATIO RND UR Lab Routine Type 2 diabetes mellitus with stage 3a chronic kidney disease, without long-term current use of insulin (HCC) Expected: 07/17/2023 (Approximate), Expires: 10/16/2023 [facility] Work Phone: Immunizations Immunization Date Immunization Notes Care Provider Laura pederson 11-04-2021 influenza virus vaccine, unspecified formulation Ashley Garcia RN Work Phone: [facility] 08-10-2021 COVID-19 vaccine, booster dose (MODERNA) Mammography Coordinator [facility] 11-08-2020 influenza, high dose seasonal, preservative-free Alejandra Valle MD Work Phone: [facility] 06-16-2020 COVID-19 vaccine, fu ll dose (MODERNA) Alejandra Valle MD Work Phone: [facility] 05-19-2020 COVID-19 vaccine, fu ll dose (MODERNA) Alejandra Valle MD Work Phone: [facility] 11-10-2019 influenza, high dose seasonal, preservative-free Alejandra Valle MD Work Phone: [facility] 12-08-2018 influenza, high dose seasonal, preservative-free Alejandra Valle MD Work Phone: [facility] 12-01-2017 zoster vaccine recombinant Alejandra Valle MD Work Phone: [facility] 11-23-2017 influenza, high dose seasonal, preservative-free Alejandra Valle MD Work Phone: [facility] 11-13-2017 pneumococcal conjuga te vaccine, 13 valent Alejandra Valle MD Work Phone: [facility] 07-20-2017 zoster vaccine recombinant Alejandra Valle MD Work Phone: [facility] 11-20-2016 influenza, high dose seasonal, preservative-free Alejandra Valle MD Work Phone: [facility] 10-12-2016 tetanus and diphther ia toxoids, adsorbed, preservative free, for adult use (5 Lf of tetanus toxoid and 2 Lf of diphtheria toxoid) Alejandra Valle MD Work Phone: [facility] Work Phone: 12-27-2015 pneumococcal polysaccharide vaccine, 23 valent Alejandra Valle MD Work Phone: [facility] 11-18-2015 influenza, high dose seasonal, preservative-free Alejandra Valle MD Work Phone: [facility] 11-10-2014 influenza, high dose seasonal, preservative-free Alejandra Valle MD Work Phone: [facility] 02-20-2014 pneumococcal conjuga te vaccine, 13 valent Alejandra Valle MD Work Phone: [facility] Work Phone: 12-10-2013 influenza, high dose seasonal, preservative-free Alejandra Valle MD Work Phone: [facility] Work Phone: 12-02-2012 influenza virus vaccine, unspecified formulation Alejandra Vlale MD Work Phone: [facility] 01-12-2012 zoster vaccine, live Alejandra perkins MD Work Phone: [facility] Work Phone: 12-06-2011 influenza, seasonal, injectable Alejandra Valle MD Work Phone: [facility] 11-23-2010 influenza virus vaccine, unspecified formulation Alejandra Valle MD Work Phone: [facility] Work Phone: 10-10-2010 hepatitis A vaccine, unspecified formulation Alejandra Valle MD Work Phone: [facility] Work Phone: 2010 influenza virus vaccine, unspecified formulation Alejandra Valle MD Work Phone: [facility] 01-08-2009 influenza virus vaccine, unspecified formulation Alejandra Valle MD Work Phone: [facility] 03-22-2007 influenza virus vaccine, unspecified formulation Alejandra Valle MD Work Phone: [facility] Work Phone: 03-22-2007 tetanus toxoid, redu nichole diphtheria toxoid, and acellular pertussis vaccine, adsorbed Alejandra Valle MD Work Phone: [facility] Work Phone: 01-18-2006 influenza virus vaccine, whole virus Alejandra Valle MD Work Phone: [facility] Work Phone: 12-26-2005 pneumococcal polysaccharide vaccine, 23 valent Alejandra Valle MD Work Phone: [facility] Work Phone: 03-27-1997 tetanus and diphther ia toxoids, adsorbed, preservative free, for adult use (2 Lf of tetanus toxoid and 2 Lf of diphtheria toxoid) Alejandra Valle MD Work Phone: [facility] Work Phone: Payers Date Payer Category Payer Medicare [employer] MEDICARE A ETNA MEDICARE PPO [id number] 2021-Present [phone] [address] [place] [address] PPO [id number] 2021 Medicare [id number] 2021 Medicare [id number] Social History Date Type Detail Facility Start: 03-08-2011 End: 01-08-2023 Tobacco smoking status NHIS Never smoked tobacco [facility] Start: 07-13-2021 End: 04-18-2023 Alcohol intake Current drinker of alcohol (finding) [facility] Start: 01-22-2020 End: 09-13-2022 History SDOH Alcohol Frequency 2 [facility] Start: 05-01-2019 History SDOH Alcohol Comment very rarely/ twice per year [facility] Start: 10-22-2019 History SDOH Financial 5 [facility] Start: 10-22-2019 End: 09-13-2022 History SDOH Food Worry 1 [facility] Start: 1945 Sex Assigned At Female [facility] Start: 07-03-2021 End: 01-18-2022 Exposure to SARS-CoV-2 (event) Not sure [facility] Start: 07-05-2021 End: 12-13-2021 Exposure to SARS-CoV-2 (event) Unable to assess [facility] Start: 03-08-2011 End: 01-08-2023 Tobacco use and exposure Smokeless tobacco non-user [facility] Work Phone: Start: 08-31-2022 End: 10-02-2022 History of Social function [facility] Work Phone: Start: 08-31-2022 End: 10-02-2022 Tobacco use panel [facility] Work Phone: Adult Depression Screening Assessment 0 [facility] Work Phone: (I/We) worried wheth er (my/our) food would run out before (I/we) got money to buy more. Never true [facility] Work Phone: Start: 12-10-2018 Gender identity Identifies as female gender (finding) [facility] Start: 12-10-2018 Sexual orientation Heterosexual (finding) [facility] How often to you hav e a drink containing alcohol? Monthly or less [facility] History of tobacco use Passive smoker [facility] Has the [employer], or [employer] threatened to shut off services in your home in past 12Mo No [facility] Do you belong to any clubs or organizations such as judaism groups, unions, fraternal or athletic groups, or school groups? Yes [facility] Are you now , , , , never or living with a partner? [facility] How many standard dr inks containing alcohol do you have on a typical day? 1 or 2 [facility] How often do you hav e 6 or more drinks on 1 occasion? Never [facility] Do you feel stress - tense, restless, nervous, or anxious, or unable to sleep at night because your mind is troubled all the time - these days [OSQ] Not at all [facility] Medical Equipment Procedure Code Equipment Code Equipment Origin al Text Equipment Identifier Dates Biolox Delta Mod ular Ceramic Head 36mm W/3mm Neck Type 1 Taper [id number] Start: 01-15-2020 Stem Taperloc 13 3d 7 High Offset Taper Pps 136mm Femoral Type 1 Full - [id number] Start: 01-15-2020 Liner G7 36mm D Neutral Arcomxl Acetabular Hip - [id number] Start: 01-15-2020 Shell G7 50mm D Hemisphere Offset Porous Acetabular Limit Hole Color Coded - [id number] Start: 01-15-2020 Screw G7 6.5mm D ome 20mm Acetabular Low Profile Hip - [id number] Start: 01-15-2020 [id number], [id number] - [id number] Start: 07-19-2021 Biolox Delta Mod ular Ceramic Head 36mm W/3mm Neck Type 1 Taper [id number] Start: 04-26-2023 Shell G7 50mm D Offset Hemisphere [place] Acetabular 3 Hole Limit Hip - [id number] Start: 04-26-2023 Liner Acetabular Size D [id number] Hip Longevity Neutral G7 - [id number] Start: 04-26-2023 Stem Taperloc 13 3d 7 High Offset Full Profile Taper Pps 134mm Femoral Type - [id number] Start: 04-26-2023 Screw G7 6.5mm D ome 20mm Acetabular Low Profile Hip - [id number] Start: 04-26-2023 Goals Date Patient Goal Desired Activity /State Personal health goal Clinical Notes 01-13-2020 to 05-04-2023 HH CARE COORDINATION - Phyllis Vega LSW - 05/04/2023 10:15 AM ESTTelephone Encounter - Lindy Gonzalez RN - 05/03/2023 5:13 PM Ashley Wagner RN - 03/01/2023 10:51 AM ESTPatient Instructions Note Date & Type Note Facility 05-04-2023 Miscellaneous Notes 05/04/23 9:46 AM ART HISTORIAN received a phone call from Lisseth Pelletier PT that she went to visit the pt. and the pt. is planning to go to the ER. She does not feel she is able to manage at home. The pt. informed Lisseth that she had to pay a couple of bills and was going to call 911 and go to [facility] ER. documented in this encounter [facility] 05-03-2023 Miscellaneous Notes Spoke with patient. Given [...] with readmission to hospital. Advised her that [employer] faxed her information per Phyllis URBINA note: 05/03/23 3:44 PM - 3;47 PM ART HISTORIAN called the pt. and informed her that ART HISTORIAN spoke to Jacki in Admissions with [facility] and she stated that [employer] will not admit from home for skilled placement. ART HISTORIAN informed the pt. that ART HISTORIAN spoke to Moon with [facility] in [facility] and she stated that it was hard to get pt. admiited under [employer]. ART HISTORIAN stated that she also spoke to Leann with [facility] and she stated to fax information. ART HISTORIAN informed the pt. she faxed her information and Therapy notes to [facility] in [facility] and to [facility]. The pt. gave the phone to Cynthia Cruz OT to talk with ART HISTORIAN regarding her going for skilled placement. ART HISTORIAN informed Cynthia on phone calls made and information faxed to [facility] in [facility] and [facility]. ART HISTORIAN will continue to follow-up. Patient asks what if I feel unsafe at home as if I'm going to fall ? Advised patient to go to ER to be evaluated. Lindy Gonzalez, RN documented in this encounter [facility] 05-03-2023 Miscellaneous Notes 05/03/23 3:35 PM Email from Cynthia Cruz OT that OT Eval completed. 05/03/23 3:39 PM ART HISTORIAN Emailed [facility] HIM Release - Hello, the pt. Mateo Bedoya is looking to get admitted into [facility] Unit in [facility]. Please fax the pt.'s demographics, history and physical, current med list , PT Eval and OT Eval to attention: Moon in Admissions Fax number [phone]. Thank You, 05/03/23 3:40 PM ART HISTORIAN Emailed [facility] HIM Release - Helmarilia, the pt. Mateo Bedoya is looking to get admitted into [facility] . Please fax the OT Eval to attention: Leann Fax number [phone]. Thank You, 05/03/23 3:44 PM - 3;47 PM ART HISTORIAN called the pt. and informed her that ART HISTORIAN spoke to Jacki in Admissions with the [facility] and she stated that [employer] will not admit from home for skilled placement. ART HISTORIAN informed the pt. that ART HISTORIAN spoke to Moon with [facility] in [facility] and she stated that it was hard to get pt. admiited under [employer]. ART HISTORIAN stated that she also spoke to Leann with [facility] and she stated to fax information. ART HISTORIAN informed the pt. she faxed her information and Therapy notes to [facility] in [facility] and to [facility]. The pt. gave the phone to Cynthia Cruz OT to talk with ART HISTORIAN regarding her going for skilled placement. ART HISTORIAN informed Cynthia on phone calls made and information faxed to [facility] in [facility] and [facility]. ART HISTORIAN will continue to follow-up. documented in this encounter [facility] 05-03-2023 Miscellaneous Notes SITUATION: only patient [...] Past medical history: Benign Neoplasm of Brain ([facility]) Essential Hypertension, Benign Elevated Glucose Hypothyroidism Hyperlipidemia, Mixed Female Stress Incontinence Arthritis of Knee, Right Coronary Artery Disease Involving [place] Coronary Artery of [place] Heart Carotid Stenosis, Asymptomatic, Bilateral Gerd (Gastroesophageal Reflux Disease) Stage 3a Chronic Kidney Disease ([facility]) Primary Osteoarthritis of Right Hip Oa (Osteoarthritis) of Hip Hypertensive Kidney Disease With Stage 3a Chronic Kidney Disease ([facility]) Type 2 Diabetes Mellitus With Stage 3a Chronic Kidney Disease, Without Long-Term Current Use of Insulin ([facility]) Carotid Stenosis, Left Weight Bearing or Precautions: WBAT Strict posterior hip dislocation precautions; brace L LE ASSESSMENT: Patient evaluated by [facility] occupational therapy. Reviewed and explained [...] for intervention/education details. documented in this encounter [facility] 05-03-2023 Miscellaneous Notes 05/03/23 9:51 AM [...] herself .( I have included our social media sr strategy manager on this message to assist with facilitating this if you are in agreement ) 05/03/23 10:05 AM - 10:07 AM ART HISTORIAN called Lisseth Pelletier PT and she was with the pt. The pt. would like to see if she could get admitted to the Transitional Care Unit in [facility]. ART HISTORIAN will call and follow-up. 05/03/23 10:08 AM - 1:11 AM ART HISTORIAN called the Transitional Care Unit in [facility] and spoke to Socorro regarding possible placement for the pt. Socorro informed ART HISTORIAN that she needed to talk with Admissions and was transferred to Moon Bhandari in Admissions and ART HISTORIAN left a message regarding ART HISTORIAN was calling regarding a possible placement for the pt. Moon's message stated you can fax referral to Fax number [phone]. documented in this encounter [facility] 05-03-2023 Miscellaneous Notes SITUATION: only patient [...] fell getting out of bed. Taken to [facility] where they were unsuccessful in reducing the dislocation. She was transferred to [facility] where they were again unsuccessful in reducing it in the ER. Pt was taken to the OR where they were able to do a closed reduction She was a late release on 05/01 so they stayed in the [facility] hotel and se came home 05/02. Since that time it has been a struggle to control her pain and her spouse is not able to manage to assist her physically to get her up and down. She was assisted in the home and up her stairs by a neighbor BACKGROUND: Diagnoses (reason for Home Care): 04/26/2023 to 04/27/2023 , and [facility] from 04/29/23 - 05/01/23 Primary Diagnoses (reason for Home Care): Left hip osteoarthritis S/P ARTHROPLASTY REPLACE JOINT TOTAL HIP (Left) 04/26/23, AND Left hip dislocation S/P CLOSED REDUCTION HIP (Left) 04/29/23 ACTIVE PROBLEM LIST Benign Neoplasm of Brain (Hcc) Essential Hypertension, Benign Elevated Glucose Hypothyroidism Hyperlipidemia, Mixed Female Stress Incontinence Arthritis of Knee, Right Coronary Artery Disease Involving [place] Coronary Artery of [place] Heart Carotid Stenosis, Asymptomatic, Bilateral Gerd (Gastroesophageal [...] Owned: Cane, Walker- Wheeled, 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 Abduction pillow while in bed Wound location: L Hip, Wound care: Aquacel to be left on until postop day 7-10 ASSESSMENT: Patient evaluated by [facility] physical therapy. Reviewed and explained [...] for intervention/education details. documented in this encounter [facility] 05-01-2023 Note HNO ID: [id number] Author: VIKTORIYA ARNETT RN Service: Care Management Author Type: Registered Nurse Type: Care Mgt Progress Note Filed: 05/01/2023 12:07 Note Text: CARE MANAGEMENT DISCHARGE NOTE SERVICE DATE: May 01, 2023 SERVICE TIME: 12:01 PM Admission Date: 04/29/2023 LOS: 0 days Discharge Arrangement Services Arranged Provider Name: [facility] Caregiver Assessment Transportation Arrangements Handoff Communication: Additional Information: Patient aware of home care with [facility] CM discussed with patient yesterday SIGNATURE: Viktoriya Arnett RN PATIENT NAME: Mateo Bedoya DATE: May 01, 2023 TIME: 12:00 PM CONTACT #: N/A [facility] 05-01-2023 Note HNO ID: [id number] Author: SURYA ELLIOTT PA-C Service: Orthopaedic Surgery Author Type: Physician Behavioral Psychologist Type: Plan of Care Filed: 05/01/2023 10:45 [...] Principal Problem: Dislocated hip, left, initial encounter ([facility]) Obesity w/ BMI 30.0 - 34.9 (adult) [...] placed Disposition- Discharge home THIS MORNING with [facility]. Patient and spouse staying at [facility] and will need wheelchair transport there. Plan of care was completed with provider, patient and RN. All questions and concerns regarding the plan were addressed to the satisfaction of all participants. Thank you for the opportunity to participate in this patient's care. Surya Elliott PA-C Orthopedic Surgery [facility] [place] [phone] For [place] floor related issues or questions Sunday[place] [phone] At all other times, or if urgent, please page the orthopaedic on-call resident at: [phone] ([phone]) for [place] patients [facility] 05-01-2023 Note HNO ID: [id number] Author: ?, ?, ? Service: Care Management Author Type: ? Type: Care Mgt Progress Note Filed: 05/01/2023 10:28 Note Text: CARE MANAGEMENT PROGRESS NOTE SERVICE DATE: 05/01/2023 SERVICE TIME: 10:28 AM LOS: 0 days IMM Follow Up Copy Given: Yes Copy given to:: Patient Manager Psychology Manager Psychology Name/Relationship: , Jared Method: In Person SIGNATURE: Alexandra Arreola PATIENT NAME: Mateo Bedoya DATE: May 01, 2023 TIME: 10:28 AM PAGER/CONTACT #: [phone] [facility] 05-01-2023 Note HNO ID: [id number] Author: JOHNNY GONZALEZ MD Service: Orthopaedic Surgery Author Type: Resident Type: Progress Notes Filed: 05/01/2023 06:18 Note Text: Inpatient Progress Note Orthopaedic Surgery If Urgent AND unable to reach [phone] OR If 5p-7a/Wknd: p2BONE Assessment 78 year [...] PGY-3 Resident Orthopaedic Surgery Please page 2BONE [phone]) from 5p-6a and on weekends for any issues. [facility] 04-30-2023 Note HNO ID: [id number] Author: VIKTORIYA ARNETT RN Service: Care Management Author Type: Registered Nurse Type: Care Mgt Initial Assessment Filed: 04/30/2023 13:56 Note Text: CARE MANAGEMENT: ASSESSMENT AND DISCHARGE PLAN SERVICE DATE: April 30, 2023 SERVICE TIME: 12:15 PM PCP: Alejandra Valle MD Primary Contact: Extended Emergency Contact Information Primary Emergency Contact: Jared Bedoya Address: [address] [facility] [address] [place] [address] [facility] Mobile Relation: Spouse Secondary Emergency Contact: Jared Bedoya III Address: [facility] [place] [address] [facility] Mobile Relation: Son Admission Status: Observation Insurance Provider: [employer] PPO Discharge Planning requested by: Potential Transition Plans Advance Directives Current Living Arrangements and Support Lives with: Type of Residence: Support: Current Services/Equipment Discharge Planning Patient Goal(s): [place] of Choice Explained: Are you interested in bedside delivery of your medications? No Discharge Planning Participant(s): Patient/Family Comments: Caregiver Assessment: Transport at Discharge: Spouse will provide transportation. Needs Prior to Discharge: Post-Acute Discharge Plan: Home PT with [facility] CM met patient discussed that she does not meet criteria for AR, received denial by Nava MEEHAN. SIGNATURE: Viktoriya Arnett RN PATIENT NAME: Mateo Bedoya DATE: April 30, 2023 TIME: 1:53 PM CONTACT #: N/A [facility] 04-30-2023 Note HNO ID: [id number] Author: SURYA ELLIOTT PA-C Service: Orthopaedic Surgery Author Type: Physician Behavioral Psychologist Type: Plan of Care Filed: 04/30/2023 14:44 Note Text: Orthopedic Plan of Care Visit SERVICE DATE: April 30, 2023 SERVICE TIME: 0919 Type of Surgery/Reason for Admission: s/p * [...] anticipation that she will discharge home with [facility]. AR was not recommended nor approved. Patient immediately fell back asleep. Patient has many steps to navigate at home and was able to stay on second floor for 2 weeks after her original Right JOE. Patient without additional concerns at this time. Most recent labs, I/Os, VS, and notes reviewed for this visit. Principal Problem: Dislocated hip, left, initial encounter ([facility]) Obesity w/ BMI 30.0 - 34.9 (adult) [...] pending Disposition- Anticipated discharge home TOMORROW with [facility] pending final therapy Plan of care was completed with provider, patient and RN. All questions and concerns regarding the plan were addressed to the satisfaction of all participants. Thank you for the opportunity to participate in this patient's care. Surya Elliott PA-C I Orthopedic Surgery [facility] [place] [phone] For [place] floor related issues or questions Sunday[place] [phone] At all other times, or if urgent, please page the orthopaedic on-call resident at: [phone]) for [place] patients [facility] 04-30-2023 Note HNO ID: [id number] Author: JOHNNY GONZALEZ MD Service: Orthopaedic Surgery Author Type: Resident Type: Progress Notes Filed: 04/30/2023 06:27 Note Text: Inpatient Progress Note Orthopaedic Surgery If Urgent AND unable to reach [phone] OR If 5p-7a/Wknd: p2BONE Assessment 78 year [...] PGY-3 Resident Orthopaedic Surgery Please page 2BONE [phone]) from 5p-6a and on weekends for any issues. [facility] 04-29-2023 Note HNO ID: [id number] Author: JORGE ALBERTO SUTHERLAND MD Service: ? Author Type: Anesthesiologist Type: Anesthesia Procedure Notes Filed: 04/29/2023 17:42 Note Text: ANESTHESIOLOGY PROCEDURE NOTE Airway General Information Procedure Start Time/Medication Administration: 04/29/2023 5:36 PM Patient location during procedure: OR Patient identity confirmed: arm band Staffing FEEDER OPERATOR: Ara Byrne APRN.FEEDER OPERATOR Performed by: FEEDER OPERATOR Indications and Patient Condition Indications for airway management: anesthesia Preoxygenated: yes anesthesia circuit Patient position: sniffing Method: sleep Difficult Mask: No Final Airway Details Final airway type: endotracheal airway Final Endotracheal Airway: ETT Cuffed: yes Successful intubation technique: video laryngoscopy Devices used: Mas Endotracheal tube insertion site: oral Blade: Jenni Blade size: #3 ETT size (mm): 7.0 Measured from: lips Measurement (cm): 22 Placement verified by: capnometry Cormack-Lehane Classification: grade I - full view of glottis Number of attempts at approach: 1 Airway not difficult SIGNATURE: Jorge Alberto Sutherland MD PATIENT NAME: Mateo Bedoya DATE: April 29, 2023 TIME: 5:41 PM CSN: [id number] [facility] 04-29-2023 Note HNO ID: [id number] Author: ULISSES RODRIGUEZ RT(R) Service: ? Author Type: Technologist Type: Progress Notes Filed: 04/29/2023 16:11 Note Text: xray: chest [facility] 04-27-2023 Note HNO ID: [id number] Author: JAVIER DEMARCO PA-C Service: Orthopaedic Surgery Author Type: Physician Behavioral Psychologist Type: Plan of Care Filed: 04/27/2023 14:12 [...] 30 days) POA: Yes Javier Demarco PA-C [facility] 04-27-2023 Note HNO ID: [id number] Author: JOHNNY GONZALEZ MD Service: Orthopaedic Surgery Author Type: Resident Type: Progress Notes Filed: 04/27/2023 06:10 Note Text: Inpatient Progress Note Orthopaedic Surgery If Urgent AND unable to reach [phone] OR If 5p-7a/Wknd: p2BONE Assessment 78 year [...] PGY-3 Resident Orthopaedic Surgery Please page 2BONE [phone]) from 5p-6a and on weekends for any issues. [facility] 04-26-2023 Note HNO ID: [id number] Author: GRICEL LOO RN Service: ? Author Type: Registered Nurse Type: Progress Notes Filed: 04/26/2023 20:21 Note Text: At 14:10 PM, Called DESTINEE Lozoya, @ #[phone], in PACU, and received report. At 14:43 PM, Patient admitted to the nursing division. [facility] 04-26-2023 Miscellaneous Notes Hello there! (Spoke with: Jared, spouse ) My name is LAVON Agudelo and I'm calling from [facility]. Your doctor wants to [...] address will we be seeing you at? [address] [facility] [address] Do you have any upcoming appointments or [...] 04/26/2023 3:31 PM documented in this encounter [facility] 04-26-2023 Note HNO ID: [id number] Author: RISSA ALMEIDA SRNA Service: ? Author Type: Student Type: Anesthesia Procedure Notes Filed: 04/26/2023 08:06 Note Text: ANESTHESIOLOGY PROCEDURE NOTE PIV General Information Procedure Start Time/Medication Administration: 04/26/2023 7:55 AM Patient Location: OR Staffing SRNA: Rissa Almeida SRNA Performed by: SRNA Preparation Sterility Preparation: hand hygiene performed prior [...] April 26, 2023 TIME: 8:05 AM CSN: [id number] [facility] 04-26-2023 Note HNO ID: [id number] Author: RISSA ALMEIDA SRNA Service: ? 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, patient and care child care team lead Staffing Anesthesiologist: Kami Anna MD SRNA: Rissa [...] April 26, 2023 TIME: 8:02 AM CSN: [id number] [facility] 04-05-2023 Note HNO ID: [id number] Author: ASHLEY GARCIA RN Service: ? Author Type: Registered Nurse Type: Progress Notes Filed: 04/05/2023 15:19 Note Text: CDM Telephonic Outreach Provider Action/FYI [...] daily weight at home? No Based on diaper machine tender, the following disposition is advised: No symptoms or symptoms present, not severe. Routed to: No Action Needed RUTHIE Education Provided this Outreach: No Mrs. Bedoya is preparing for her left hip replacement on 04/26/23. Prepping and freezing meals, getting paperwork in order. No questions or concerns at this time. Ashley Garcia RN April 05, 2023 3:18 PM [facility] 04-05-2023 Note Patient Outreach [place] MATEO BEDOYA V ([id number]) 1945 F Date Time Provider Department 04/05/23 ASHLEY GARCIAMercy During your visit today, we recorded the following information about you: Ashley Garcia RN 04/05/2023 3:19 PM Signed CDM Telephonic Outreach Provider Action/TAYA N/A Contacted for: [...] daily weight at home? No Based on diaper machine tender, the following disposition is advised: No symptoms [...] as of 01/12/2022: Changed all Rx's to [facility]. 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] 05/10/2004 Essential hypertension, benign [I10] 12/16/2005 Elevated glucose [R73.09] 05/24/2012 Hypothyroidism [E03.9] 05/24/2012 Hyperlipidemia, mixed [E78.2] 05/24/2012 Female stress incontinence [N39.3] 08/23/2012 Acute medial meniscus tear of right knee [S83.2*10/23/2013 12/27/2020 Arthritis of knee, right [M17.11] 07/09/2014 Coronary artery disease involving [place] clay*01/09/2019 Carotid stenosis, asymptomatic, bilateral [I65.*10/02/2019 Carotid [...] Encounter Status:Closed by ASHLEY GARCIA on 04/05/23 [facility] 04-04-2023 Note HNO ID: [id number] Author: ASHLEY GARCIA, RN Service: ? Author Type: Registered Nurse Type: Progress Notes Filed: 04/04/2023 15:10 Note Text: [facility] Telephonic Outreach Provider Action/FYI N/A Contacted for: Routine Telephonic Outreach Contact made with patient: Yes Patient identified by name and date of . Discussed care with patient-she is unable to talk right now. Requests call back tomorrow. [facility] 04-04-2023 Note Patient Outreach ([facility] MATEO BEDOYA V ([id number]) 1945 F Date Time Provider Department 04/04/23 ASHLEY GARCIA During your visit today, we recorded the following information about you: Ashley Garcia RN 04/04/2023 3:10 PM Signed CDM Telephonic Outreach Provider Sapna/TAYA [...] as of 01/12/2022: Changed all Rx's to [facility]. 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] 05/10/2004 Essential hypertension, benign [I10] 12/16/2005 Elevated glucose [R73.09] 05/24/2012 Hypothyroidism [E03.9] 05/24/2012 Hyperlipidemia, mixed [E78.2] 05/24/2012 Female stress incontinence [N39.3] 08/23/2012 Acute medial meniscus tear of right knee [S83.2*10/23/2013 12/27/2020 Arthritis of knee, right [M17.11] 07/09/2014 Coronary artery disease involving [place] clay*01/09/2019 Carotid stenosis, asymptomatic, bilateral [I65.*10/02/2019 Carotid [...] Encounter Status:Closed by ASHLEY GARCIA on 04/04/23 [facility] 03-12-2023 Miscellaneous Notes The following approved medication requests have been transmitted electronically. Requested Prescriptions Pending Prescriptions Disp Refills atorvastatin (LIPITOR) 80 mg tablet 90 tablet 3 Sig: Take 1 tablet by mouth once daily. Umesh Liz APRN.INSTRUMENTATION CHEMIST Patient has been identified by name and [...] Betty Onofre LPN. documented in this encounter [facility] 03-01-2023 Note Patient Outreach (AM [facility]) MATEO BEDOYA V ([id number]) 1945 F Date Time Provider Department 03/01/23 ASHLEY GARCIA During your visit today, we recorded the following information about you: Ashley Garcia RN 03/01/2023 11:34 AM Signed CDM Telephonic Outreach Provider Action/FYI [...] but is friends with the head of [facility] and also with the head of [facility]. She states can reach out to them if she feels grief counseling is needed. States she is having a left hip replacement with Dr. Shin on 04/26/23. Based on diaper machine tender, the following disposition is advised: No symptoms [...] as of 01/12/2022: Changed all Rx's to [facility]. 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] 05/10/2004 Essential hypertension, benign [I10] 12/16/2005 Elevated glucose [R73.09] 05/24/2012 Hypothyroidism [E03.9] 05/24/2012 Hyperlipidemia, mixed [E78.2] 05/24/2012 Female stress incontinence [N39.3] 08/23/2012 Acute medial meniscus tear of right knee [S83.2*10/23/2013 12/27/2020 Arthritis of knee, right [M17.11] 07/09/2014 Coronary artery disease involving [place] clay*01/09/2019 Carotid stenosis, asymptomatic, bilateral [I65.*10/02/2019 Carotid artery stenosis [I65.29] 10/21/2019 07/11/2021 Post-operative state [Z98.890] 10/22/2019 12/27/2020 GERD (gastroesophageal reflux disease) [K21.9] 01/13/2020 Prediabetes [R73.03] 01/13/2020 07/11/2021 Class 1 obesity due to excess calories with bod*01/13/2020 07/11/2021 Stage 3a chronic kidney disease [N18.31] 01/13/2020 Primary osteoarthritis of right h (more content not included)... [facility] 03-01-2023 Note HNO ID: [id number] Author: Ashley Garcia RN Service: ? Author [...] but is friends with the head of [facility] and also with the head of [facility]. She states can reach out to them if she feels grief counseling is needed. States she is having a left hip replacement with Dr. Shin on 04/26/23. Based on diaper machine tender, the following disposition is advised: No symptoms or symptoms present, not severe. Routed to: No Action Needed RUTHIE Education Provided this Outreach: No Ashley Garcia RN March 01, 2023 11:25 AM [facility] 03-01-2023 History of Present illness Narrative [facility] Telephonic Outreach Provider Action/FYI N/A Contacted for: [...] but is friends with the head of [facility] and also with the head of [facility]. She states can reach out to them if she feels grief counseling is needed. States she is having a left hip replacement with Dr. Shin on 04/26/23. Based on diaper machine tender, the following disposition is advised: No symptoms or symptoms present, not severe. Routed to: No Action Needed RUTHIE Education Provided this Outreach: No Ashley Garcia RN March 01, 2023 11:25 AM documented in this encounter [facility] 02-28-2023 Miscellaneous Notes The following approved medication requests have been transmitted electronically. Requested Prescriptions Pending Prescriptions Disp Refills clopidogrel (PLAVIX) 75 mg tablet 30 tablet 11 Sig: Take 1 tablet by mouth once daily. SYNTHROID 137 mcg tablet 90 tablet 3 Sig: Take 1 tablet by mouth once daily. Take on empty stomach. For thyroid. Umesh Liz APRN.INSTRUMENTATION CHEMIST Patient has been identified by name and date of : Lindsay Early RN Date 02/28/2023 Time 11:07 am Patient [...] Lindsay Irwin RN. documented in this encounter [facility] 02-21-2023 Miscellaneous Notes Patient notified to call [facility] since they manage medication [facility] verified in [facility] Patient has been identified by name and [...] advise. Jamee Okeefe documented in this encounter [facility] 02-05-2023 Miscellaneous Notes Call to pt and notified her of message below from Provider. Pt's son was in [place] in [employer] meetings. Spoke with his brother and the [...] son are still being planned currently. Uses [facility]. Please call patient with update. Thank you. documented in this encounter [facility] 02-01-2023 Note HNO ID: [id number] Author: Ashley Gracia RN Service: ? Author Type: Registered Nurse Type: Progress Notes Filed: 02/01/2023 2:52 PM Note Text: CD Telephonic Outreach Provider Action/FYI [...] out again to patient in 3-4 weeks. [facility] 02-01-2023 History of Present illness Narrative CD Telephonic [...] in 3-4 weeks. documented in this encounter [facility] 02-01-2023 Note Patient Outreach ([facility] MATEO BEDOYA V ([id number]) 1945 F Date Time Provider Department 02/01/23 ASHLEY GARCIAMercy During your visit today, we recorded the [...] a collogue during a work conference in [place] yesterday. Deepest sympathy offered. Pt appreciative. States [...] as of 01/12/2022: Changed all Rx's to [facility]. 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] 05/10/2004 Essential hypertension, benign [I10] 12/16/2005 Elevated glucose [R73.09] 05/24/2012 Hypothyroidism [E03.9] 05/24/2012 Hyperlipidemia, mixed [E78.2] 05/24/2012 Female stress incontinence [N39.3] 08/23/2012 Acute medial meniscus tear of right knee [S83.2*10/23/2013 12/27/2020 Arthritis of knee, right [M17.11] 07/09/2014 Coronary artery disease involving [place] clay*01/09/2019 Carotid stenosis, asymptomatic, bilateral [I65.*10/02/2019 Carotid [...] Encounter Status:Closed by ASHLEY GARCIA on 02/01/23 [facility] 01-31-2023 Note Patient Outreach ([facility]) MATEO BEDOYA V ([id number]) 1945 F Date Time Provider Department 01/31/23 [facility] visit today, we recorded the following information about you: Ashley Garcia RN 01/31/2023 12:04 PM Signed [facility] Telephonic Outreach Provider Action/FYI N/A Contacted for: [...] as of 01/12/2022: Changed all Rx's to [facility]. 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] 05/10/2004 Essential hypertension, benign [I10] 12/16/2005 Elevated glucose [R73.09] 05/24/2012 Hypothyroidism [E03.9] 05/24/2012 Hyperlipidemia, mixed [E78.2] 05/24/2012 Female stress incontinence [N39.3] 08/23/2012 Acute medial meniscus tear of right knee [S83.2*10/23/2013 12/27/2020 Arthritis of knee, right [M17.11] 07/09/2014 Coronary artery disease involving [place] clay*01/09/2019 Carotid stenosis, asymptomatic, bilateral [I65.*10/02/2019 Carotid [...] Encounter Status:Closed by ASHLEY GARCIA on 01/31/23 [facility] 01-31-2023 Note HNO ID: [id number] Author: Ashley Garcia RN Service: ? Author Type: Registered Nurse Type: Progress Notes Filed: 01/31/2023 12:04 PM Note Text: [facility] Telephonic Outreach Provider Action/TAYA N/A Contacted for: Routine Telephonic Outreach Pt requests q 2 month outreach calls. Contact made with patient: No, left message. Ashley Garcia RN January 31, 2023 12:03 PM [facility] 01-31-2023 History of Present illness Narrative [facility] Telephonic Outreach Provider Action/FYI N/A Contacted for: Routine Telephonic Outreach Pt requests q 2 month outreach calls. Contact made with patient: No, left message. Ashley Garcia RN January 31, 2023 12:03 PM documented in this encounter [facility] 01-15-2023 Note HNO ID: [id number] Author: Alejandra Valle MD Service: ? Author [...] with Ditropan xl 10 mg daily by [employer] Dr. Kent. Thyroid: Stable on current regimen of Synthroid 137 mcg daily. No missed dosages. DM: Does not check BS at home, no hypoglycemic episodes or neuropathy sx. Not taking any diabetic medications, tries to control with lifestyle. Does watch sugar, but does plan on cutting chocolate out of her diet more. Following with [facility] for DM eye exams. CAD/Lipid: Follows with Cardio at [facility] Dr. Riddle. Is [...] has nitro Benign neoplasm of brain (HCC) 2005 meningioma Carotid stenosis, asymptomatic, bilateral 10/02/2019 Dysthymic disorder Essential hypertension, benign Herpes zoster 10/26 Impaired fasting glucose 03/31 Obesity, unspecified Other and unspecified hyperlipidemia Pessary maintenance Urinary incontinence Previous Surgical History PAST SURGICAL HISTORY Procedure Laterality Date EXTRACTION, ERUPTED TOOTH OR EXPOSED ROOT (ELEVATION AND/OR FORCEPS REMOVAL) [place] teeth LAPAROSCOPY SURG CHOLECYSTECTOMY 90s Cholecystectomy, lap OOPHORECTOMY PARTIAL/TOTAL UNI/BI 80s Oophorectomy PAST SURGICAL HISTORY OF 80s 10 surgeries 14 abd tumors, all benign PAST SURGICAL HISTORY OF 12/16/2015 Dr. Reinoso, skin lesion removed PAST SURGICAL HISTORY OF Right 07/04/2016 right breast needle biopsy, benign - Dr. Reinoso PAST SURGICAL HISTORY OF N/A 05/23/2018 4 stents placed by [facility] PAST SURGICAL HISTORY OF N/A 08/14/2018 5th stent placed by [facility] PAST SURGICAL HISTORY OF Right right upper [...] mouth once daily (more content not included)... [facility] 01-15-2023 History of Present illness Narrative [...] with Ditropan xl 10 mg daily by [employer] Dr. Kent. Thyroid: Stable on current regimen of Synthroid 137 mcg daily. No missed dosages. DM: Does not check BS at home, no hypoglycemic episodes or neuropathy sx. Not taking any diabetic medications, tries to control with lifestyle. Does watch sugar, but does plan on cutting chocolate out of her diet more. Following with [facility] for DM eye exams. CAD/Lipid: Follows with Cardio at [facility] Dr. Riddle. Is [...] OR EXPOSED ROOT (ELEVATION AND/OR FORCEPS REMOVAL) [place] teeth LAPAROSCOPY SURG CHOLECYSTECTOMY 90s Cholecystectomy, lap OOPHORECTOMY PARTIAL/TOTAL UNI/BI 80s Oophorectomy PAST SURGICAL HISTORY OF 80s 10 surgeries 14 abd tumors, all benign PAST SURGICAL HISTORY OF 12/16/2015 Dr. Reinoso, skin lesion removed PAST SURGICAL HISTORY OF Right 07/04/2016 right breast needle biopsy, benign - Dr. Reinoso PAST SURGICAL HISTORY OF N/A 05/23/2018 4 stents placed by [facility] PAST SURGICAL HISTORY OF N/A 08/14/2018 5th stent placed by [facility] PAST SURGICAL HISTORY OF Right right upper [...] medication regimen. 7. Coronary artery disease involving nuiqsut coronary artery of nuiqsut heart, unspecified whether angina present - ICD9: [...] Past Histories independently gathered by the clinical it support specialist and the remaining scribed note accurately describes [...] Lindsey Martinez Ma documented in this encounter [facility] 01-08-2023 Note HNO ID: [id number] Author: Dixie Shin MD Service: ? Author [...] of Knee, Right Coronary Artery Disease Involving [place] Coronary Artery of [place] Heart Carotid Stenosis, Asymptomatic, Bilateral Gerd (Gastroesophageal [...] 08/31/22 : 3 (more content not included)... [facility] 01-08-2023 Note HNO ID: [id number] Author: Lucrecia Chandler RT(R) Service: ? Author Type: Technologist Type: Progress Notes Filed: 01/08/2023 8:36 AM Note Text: Radiology Service Progress Note PATIENT NAME: aMteo Bedoya DATE OF SERVICE: January 08, 2023 [...] RT Jonathan(R) January 08, 2023 8:35 AM [facility] 01-08-2023 History of Present illness [...] of Knee, Right Coronary Artery Disease Involving [place] Coronary Artery of [place] Heart Carotid Stenosis, Asymptomatic, Bilateral Gerd (Gastroesophageal [...] SIGNATURE: Dixie Shin MD PATIENT NAME: Mateo Syed Theil DATE: January 08, 2023 TIME: 9:34 AM I personally evaluated this patient and agree with the note from the nurse/resident/fellow including PMH, PSH, SH, meds, allergies, and review of systems. I completed the HPI and performed the physical exam. Additionally I reviewed available imaging and wrote my interpretation. I wrote the Assessment and Plan. documented in this encounter [facility] 01-08-2023 History of Present illness Narrative [...] 2023 8:35 AM documented in this encounter [facility] 01-04-2023 Note HNO ID: [id number] Author: Ashley Garcia RN Service: ? Author [...] Garcia RN January 04, 2023 1:59 PM [facility] 01-04-2023 Note [place] Out[place] [facility] MATEO BEDOYA V ([id number]) 1945 F Date Time Provider Department 01/04/23 [...] as of 01/12/2022: Changed all Rx's to [facility]. 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] 05/10/2004 Essential hypertension, benign [I10] 12/16/2005 Elevated glucose [R73.09] 05/24/2012 Hypothyroidism [E03.9] 05/24/2012 Hyperlipidemia, mixed [E78.2] 05/24/2012 Female stress incontinence [N39.3] 08/23/2012 Acute medial meniscus tear of right knee [S83.2*10/23/2013 12/27/2020 Arthritis of knee, right [M17.11] 07/09/2014 Coronary artery disease involving nuiqs[place] clay*01/09/2019 Carotid stenosis, asymptomatic, bilateral [I65.*10/02/2019 Carotid [...] Encounter Status:Closed by ASHLEY GARCIA on 01/04/23 [facility] 01-04-2023 History of Present illness Narrative Care Coordination Deferred Outreach Provider Action / FYI: N/A Deferred outreach to patient at this time due to: Chart Review Only Last outreach 12/06/22. Pt now requesting q 2 month outreaches. Did not contact patient today. Next Outreach date: 02/01/23 Ashley Garcia RN January 04, 2023 1:59 PM documented in this encounter [facility] 01-01-2023 Miscellaneous Notes The following approved medication requests have been transmitted electronically. Requested Prescriptions Pending Prescriptions Disp Refills gabapentin (NEURONTIN) 300 mg capsule 360 capsule 1 Sig: Take 2 capsules by mouth two times a day for 180 days. Umesh Liz APRN.MARTIN CELINA 07/14/22 NOV 01/15/23 Please review and advise. Thank you. MARA Escobar Patient has been identified by name and date of : Yes Requested Prescriptions Pending Prescriptions Disp Refills gabapentin (NEURONTIN) 300 mg capsule 360 capsule 1 Sig: Take 2 capsules by mouth two times a day for 180 days. RX INSTRUCTIONS: Patient aware RX will be sent to [facility] pharmacy. No need to notify patient. Grace Ordoñez documented in this encounter [facility] 12-06-2022 Note Patient Outreach (AM [facility]) MATEO BEDOYA V ([id number]) 1945 F Date Time Provider Department 12/06/22 ASHLEY GARCIA During your visit today, we recorded the following information about you: Ashley Garcia RN 12/06/2022 10:11 AM Signed [facility] Telephonic Outreach Provider Action/TAYA N/A Contacted for: Routine Telephonic Outreach Contact made with patient: No, left message on mobile number. Ashley Garcia RN December 06, 2022 10:10 AM Ashley Garcia RN 12/06/2022 10:19 AM Signed [facility] Telephonic Outreach Provider Sapna/TAYA N/A Contacted for: [...] daily weight at home? No Based on diaper machine tender, the following disposition is advised: No symptoms or symptoms present, not severe. Routed to: No Action Needed RUTHIE Education Provided this Outreach: No Upcoming appointments reviewed: Appointments for Next 60 Days Date Time Provider Location Dept Phone 01/08/2023 9:30 AM DIXIE SHIN [facility] [phone] 01/15/2023 1:00 PM ALEJANDRA VALLE [facility] [phone] Ashley Garcia RN December 06, 2022 10:16 [...] as of 01/12/2022: Changed all Rx's to [facility] Pharmacy. 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] 05/10/2004 Essential hypertension, benign [I10] 12/16/2005 Elevated glucose [R73.09] 05/24/2012 Hypothyroidism [E03.9] 05/24/2012 Hyperlipidemia, mixed [E78.2] 05/24/2012 Female stress incontinence [N39.3] 08/23/2012 Acute medial meniscus tear of right knee [S83.2*10/23/2013 12/27/2020 Arthritis of knee, right [M17.11] 07/09/2014 Coronary artery disease involving n[place] clay*01/09/2019 Carotid stenosis, asymptomatic, bilateral [I65.*10/02/2019 Carotid [...] Encounter Status:Closed by ASHLEY GARCIA on 12/06/22 [facility] 12-06-2022 Note HNO ID: [id number] Author: Ashley Garcia RN Service: ? Author [...] daily weight at home? No Based on diaper machine tender, the following disposition is advised: No symptoms or symptoms present, not severe. Routed to: No Action Needed RUTHIE Education Provided this Outreach: No Upcoming appointments reviewed: Appointments for Next 60 Days Date Time Provider Location Dept Phone 01/08/2023 9:30 AM DIXIE SHIN [facility] [phone] 01/15/2023 1:00 PM ALEJANDRA VALLE [facility] [phone] Ashley Garcia RN December 06, 2022 10:16 AM [facility] 12-06-2022 Note HNO ID: [id number] Author: Ahsley Garcia RN Service: ? Author Type: Registered Nurse Type: Progress Notes Filed: 12/06/2022 10:11 AM Note Text: [facility] Telephonic Outreach Provider Action/FYI N/A Contacted for: Routine Telephonic Outreach Contact made with patient: No, left message on mobile number. Ashley Garcia RN December 06, 2022 10:10 AM [facility] 12-06-2022 History of Present illness Narrative [facility] Telephonic Outreach Provider Action/FYChris N/A Contacted for: Routine Telephonic Outreach Contact [...] daily weight at home? No Based on diaper machine tender, the following disposition is advised: No symptoms or symptoms present, not severe. Routed to: No Action Needed RUTHIE Education Provided this Outreach: No Upcoming appointments reviewed: Appointments for Next 60 Days Date Time Provider Location Dept Phone 01/08/2023 9:30 AM DIXIE SHIN [facility] [phone] 01/15/2023 1:00 PM ALEJANDRA VALLE [facility] [phone] Ashley Garcia RN December 06, 2022 10:16 AM [facility] Telephonic Outreach Provider Sapna/TAYA N/A Contacted for: Routine Telephonic Outreach Contact made with patient: No, left message on mobile number. Ashley Garcia RN December 06, 2022 10:10 AM documented in this encounter [facility] 11-20-2022 Miscellaneous Notes OK to refill as ordered Alejandra Valle MD Pharmacy verified in [facility] Patient has been identified by name and [...] Jamee Rivera Pss documented in this encounter [facility] 11-08-2022 Note HNO ID: [id number] Author: Ashley Garcia RN Service: ? Author Type: Registered Nurse Type: Progress Notes Filed: 11/08/2022 1:18 PM Note Text: [facility] Telephonic Outreach Provider Sapna/TAYA Left hip pain [...] daily weight at home? No Based on diaper machine tender, the following disposition is advised: No symptoms or symptoms present, not severe. SEE FYI BOX ABOVE Routed to: No Action Needed RUTHIE Education Provided this Outreach: No Ashley Garcia RN November 08, 2022 1:17 PM [facility] 11-08-2022 Note Patient Outreach [place] [facility] MATEO EBDOYA V ([id number]) 1945 F Date Time Provider Department 11/08/22 ASHLEY GARCIA [facility] During your visit today, we recorded the following information about you: Ashley Garcia RN 11/08/2022 1:18 PM Signed [facility] Telephonic Outreach Provider Sapna/TAYA Left hip [...] daily weight at home? No Based on diaper machine tender, the following disposition is advised: No symptoms or symptoms present, not severe. SEE FYI BOX ABOVE Routed to: No Action Needed RUTHIE Education Provided this Outreach: Eugenia Garcia RN November 08, 2022 1:17 PM [...] as of 01/12/2022: Changed all Rx's to [facility] Pharmacy. 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] 05/10/2004 Essential hypertension, benign [I10] 12/16/2005 Elevated glucose [R73.09] 05/24/2012 Hypothyroidism [E03.9] 05/24/2012 Hyperlipidemia, mixed [E78.2] 05/24/2012 Female stress incontinence [N39.3] 08/23/2012 Acute medial meniscus tear of right knee [S83.2*10/23/2013 12/27/2020 Arthritis of knee, right [M17.11] 07/09/2014 Coronary artery disease involving [place] clay*01/09/2019 Carotid stenosis, asymptomatic, bilateral [I65.*10/02/2019 Carotid [...] Encounter Status:Closed by ASHLEY GARCIA on 11/08/22 [facility] 11-08-2022 History of Present illness Narrative [...] daily weight at home? No Based on diaper machine tender, the following disposition is advised: No symptoms or symptoms present, not severe. SEE FYI BOX ABOVE Routed to: No Action Needed RUTHIE Education Provided this Outreach: No Ashley Garcia RN November 08, 2022 1:17 PM documented in this encounter [facility] 10-11-2022 Note HNO ID: [id number] Author: Ashley Garcia RN Service: ? Author Type: Registered Nurse Type: Progress Notes Filed: 10/11/2022 1:20 PM Note Text: [facility] Telephonic Outreach Provider Sapna/TAYA Left VM on mobile number (preferred contact number) and on home phone number. Contacted for: Routine Telephonic Outreach Contact made with patient: No, left message. Ashley Garcia RN October 11, 2022 1:20 PM [facility] 10-11-2022 Note Patient Outreach (AM [facility]) MATEO BEDOYA V ([id number]) 1945 F Date Time Provider Department 10/11/22 ASHLEY GARCIA During your visit today, we recorded the following information about you: Ashley Garcia RN 10/11/2022 1:20 PM Signed [facility] Telephonic Outreach Provider Malik Left VM on mobile number (preferred contact [...] as of 01/12/2022: Changed all Rx's to [facility] Pharmacy. 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] 05/10/2004 Essential hypertension, benign [I10] 12/16/2005 Elevated glucose [R73.09] 05/24/2012 Hypothyroidism [E03.9] 05/24/2012 Hyperlipidemia, mixed [E78.2] 05/24/2012 Female stress incontinence [N39.3] 08/23/2012 Acute medial meniscus tear of right knee [S83.2*10/23/2013 12/27/2020 Arthritis of knee, right [M17.11] 07/09/2014 Coronary artery disease involving [place] clay*01/09/2019 Carotid stenosis, asymptomatic, bilateral [I65.*10/02/2019 Carotid [...] Encounter Status:Closed by ASHLEY GARCIA on 10/11/22 [facility] 10-11-2022 History of Present illness Narrative [facility] Telephonic Outreach Provider Action/FYI Left VM on mobile number (preferred contact number) and on home phone number. Contacted for: Routine Telephonic Outreach Contact made with patient: No, left message. Ashley Garcia RN October 11, 2022 1:20 PM documented in this encounter [facility] 10-02-2022 Note HNO ID: [id number] Author: Rizwana Hoyt APRN.INSTRUMENTATION CHEMIST Service: ? Author Type: Nurse Practitioner Type: [...] OR EXPOSED ROOT (ELEVATION AND/OR FORCEPS REMOVAL) [place] teeth LAPAROSCOPY SURG CHOLECYSTECTOMY 90s Cholecystectomy, lap OOPHORECTOMY PARTIAL/TOTAL UNI/BI 80s Oophorectomy PAST SURGICAL HISTORY OF 80s 10 surgeries 14 abd tumors, all benign PAST SURGICAL HISTORY OF 12/16/2015 Dr. Reinoso, skin lesion removed PAST SURGICAL HISTORY OF Right 07/04/2016 right breast needle biopsy, benign - Dr. Reinoso PAST SURGICAL HISTORY OF N/A 05/23/2018 4 stents placed by [facility] PAST SURGICAL HISTORY OF N/A 08/14/2018 5th stent placed by [facility] PAST SURGICAL HISTORY OF Right right upper [...] immediate medical evaluati (more content not included)... [facility] 10-02-2022 History of Present illness Narrative [...] OR EXPOSED ROOT (ELEVATION AND/OR FORCEPS REMOVAL) [place] teeth LAPAROSCOPY SURG CHOLECYSTECTOMY 90s Cholecystectomy, lap OOPHORECTOMY PARTIAL/TOTAL UNI/BI 80s Oophorectomy PAST SURGICAL HISTORY OF 80s 10 surgeries 14 abd tumors, all benign PAST SURGICAL HISTORY OF 12/16/2015 Dr. Reinoso, skin lesion removed PAST SURGICAL HISTORY OF Right 07/04/2016 right breast needle biopsy, benign - Dr. Reinoso PAST SURGICAL HISTORY OF N/A 05/23/2018 4 stents placed by [facility] PAST SURGICAL HISTORY OF N/A 08/14/2018 5th stent placed by [facility] PAST SURGICAL HISTORY OF Right right upper [...] Rizwana Hoyt APRN.CNP documented in this encounter [facility] 10-02-2022 Instructions Rizwana Hoyt APRN.CNP - [...] expected course of illness Rizwana Hoyt APRN.CNP [facility] PATIENT INFO POISON ELLIE INTRODUCTION [...] plants grow in many areas across the [facility] and throughout the world. [place] of the [place], poison ellie commonly grows as a climbing vine. In the [place] area and west, poison ellie tends to grow low to the ground as a shrub. Poison oak most often grows west of the [facility], and poison sumac inhabits boggy areas in the southeastern part of the [place]. The plants are not usually found in [...] poison ellie dermatitis. documented in this encounter [facility] 09-13-2022 Note Patient Outreach (AM [facility]) MATEO BEDOYA V ([id number]) 1945 F Date Time Provider Department 09/13/22 [...] daily weight at home? No Based on diaper machine tender, the following disposition is advised: No symptoms [...] goal align with programs offered at the [facility]? Yes Chronic Disease Management patient goals yes: Weight loss Most people know what to do to become healthier, yet struggle to put it into action on their own, It can be hard to maintain a healthy lifestyle, especially when life is so stressful. Can we connect you with a [facility] Health Front Office Supervisor to find a program that could help you meet your goals? No Falls completed:Yes ADL's updated: Yes Are you experiencing any new or worsening symptoms you need to talk about today? No Based on diaper machine tender, the following disposition is advised: No symptoms [...] as of 01/12/2022: Changed all Rx's to [facility] Pharmacy. 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 [facility] 09-13-2022 Note HNO ID: [id number] Author: Ashley Garcia RN Service: ? Author [...] daily weight at home? No Based on diaper machine tender, the following disposition is advised: No symptoms [...] goal align with programs offered at the [facility]? Yes Chronic Disease Management patient goals yes: Weight loss Most people know what to do to become healthier, yet struggle to put it into action on their own, It can be hard to maintain a healthy lifestyle, especially when life is so stressful. Can we connect you with a [facility] Front Office Supervisor to find a program that could help you meet your goals? No Falls completed:Yes ADL's updated: Yes Are you experiencing any new or worsening symptoms you need to talk about today? No Based on diaper machine tender, the following disposition is advised: No symptoms or symptoms present, not severe. Ashley Garcia RN September 13, 2022 11:37 AM [facility] 09-13-2022 History of Present illness Narrative [...] daily weight at home? No Based on diaper machine tender, the following disposition is advised: No symptoms [...] goal align with programs offered at the [facility]? Yes Chronic Disease Management patient goals yes: Weight loss Most people know what to do to become healthier, yet struggle to put it into action on their own, It can be hard to maintain a healthy lifestyle, especially when life is so stressful. Can we connect you with a [facility] Health Front Office Supervisor to find a program that could help you meet your goals? No Falls completed:Yes ADL's updated: Yes Are you experiencing any new or worsening symptoms you need to talk about today? No Based on diaper machine tender, the following disposition is advised: No symptoms or symptoms present, not severe. Ashley Garcia RN September 13, 2022 11:37 AM documented in this encounter [facility] 09-11-2022 Note HNO ID: [id number] Author: Rizwana Hoyt APRN.INSTRUMENTATION CHEMIST Service: ? Author Type: Nurse Practitioner Type: [...] OR EXPOSED ROOT (ELEVATION AND/OR FORCEPS REMOVAL) [place] teeth LAPAROSCOPY SURG CHOLECYSTECTOMY 90s Cholecystectomy, lap OOPHORECTOMY PARTIAL/TOTAL UNI/BI 80s Oophorectomy PAST SURGICAL HISTORY OF 80s 10 surgeries 14 abd tumors, all benign PAST SURGICAL HISTORY OF 12/16/2015 Dr. Reinoso, skin lesion removed PAST SURGICAL HISTORY OF Right 07/04/2016 right breast needle biopsy, benign - Dr. Reinoso PAST SURGICAL HISTORY OF N/A 05/23/2018 4 stents placed by [facility] PAST SURGICAL HISTORY OF N/A 08/14/2018 5th stent placed by [facility] PAST SURGICAL HISTORY OF Right right upper [...] HENT: Head: Cardio (more content not included)... [facility] 09-11-2022 History of Present illness Narrative [...] OR EXPOSED ROOT (ELEVATION AND/OR FORCEPS REMOVAL) [place] teeth LAPAROSCOPY SURG CHOLECYSTECTOMY 90s Cholecystectomy, lap OOPHORECTOMY PARTIAL/TOTAL UNI/BI 80s Oophorectomy PAST SURGICAL HISTORY OF 80s 10 surgeries 14 abd tumors, all benign PAST SURGICAL HISTORY OF 12/16/2015 Dr. Reinoso, skin lesion removed PAST SURGICAL HISTORY OF Right 07/04/2016 right breast needle biopsy, benign - Dr. Reinoso PAST SURGICAL HISTORY OF N/A 05/23/2018 4 stents placed by [facility] PAST SURGICAL HISTORY OF N/A 08/14/2018 5th stent placed by [facility] PAST SURGICAL HISTORY OF Right right upper [...] Rizwana Hoyt APRN.CNP documented in this encounter [facility] 09-11-2022 Instructions Rizwana Hoyt APRN.CNP - [...] expected course of illness Rizwana Hoyt APRN.CNP NONSPECIFIC RASH: Our exam shows you have [...] stress under control documented in this encounter [facility] 08-31-2022 Note HNO ID: [id number] Author: Luanne Kent MD Service: ? Author Type: Physician Type: Progress Notes Filed: 08/31/2022 1:42 PM Note Text: Safety And Security Officer offered: Patient declines. Mateo is a 77 year old who presents for an annual gynecologic exam without complaints. Postmenopausal: Yes HRT use: No. Last Pap: prior to hysterectomy History of abnormal pap: No Last mammogram: 2022 normal Patient concerns for STD exposure: No. OB History T2 L2 SAB1 IAB0 Ectopic0 Multiple0 Live Births0 Education And Training Manager History LMP: LMP Unknown, Hysterectomy Age at Menarche: Age at First : Age at Menopause: Education And Training Manager History Comments: Sexual Activity: Not Currently; Male [...] OR EXPOSED ROOT (ELEVATION AND/OR FORCEPS REMOVAL) [place] teeth LAPAROSCOPY SURG CHOLECYSTECTOMY 90s Cholecystectomy, lap OOPHORECTOMY PARTIAL/TOTAL UNI/BI 80s Oophorectomy PAST SURGICAL HISTORY OF 80s 10 surgeries 14 abd tumors, all benign PAST SURGICAL HISTORY OF 12/16/2015 Dr. Reinoso, skin lesion removed PAST SURGICAL HISTORY OF Right 07/04/2016 right breast needle biopsy, benign - Dr. Reinoso PAST SURGICAL HISTORY OF N/A 05/23/2018 4 stents placed by [facility] PAST SURGICAL HISTORY OF N/A 08/14/2018 5th stent placed by [facility] PAST SURGICAL HISTORY OF Right right upper [...] external genitalia atrophic, normal Bartholin's glands, urethra, Frazer's glands, no vulvar lesions, good vaginal support, [...] or sooner as needed Luanne Kent DO [facility] 08-20-2022 Miscellaneous Notes August 21, 2022 PID: [id number] Mateo Bedoya [address] [place] [address] Dear Ms. Bedoya, We are pleased to [...] report will be kept on file at [facility] as part of your permanent medical record and are available for your continuing care. Thank you for allowing us to help in meeting your health care needs. Sincerely, Dr. Mayers Interpreting Radiologist [facility] (Normal over 40) documented in this encounter [facility] 08-18-2022 Note HNO ID: [id number] Author: RT Shara(José Miguel) Service: ? Author Type: Technologist Type: Progress [...] Shara(José Miguel) August 18, 2022 1:00 PM [facility] 08-18-2022 History of Present illness Narrative [...] PERIPHERAL IV DATA: Not applicable SIGNED BY: TOYIN Olmedo) August 18, 2022 1:00 PM documented in this encounter [facility] 08-15-2022 Note Patient Outreach [place] [facility] MATEO BEDOYA V ([id number]) 1945 F Date Time Provider Department 08/15/22 [...] daily weight at home? No Based on diaper machine tender, the following disposition is advised: No symptoms [...] as of 01/12/2022: Changed all Rx's to [facility]. 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] 05/10/2004 Essential hypertension, benign [I10] 12/16/2005 Elevated glucose [R73.09] 05/24/2012 Hypothyroidism [E03.9] 05/24/2012 Hyperlipidemia, mixed [E78.2] 05/24/2012 Female stress incontinence [N39.3] 08/23/2012 Acute medial meniscus tear of right knee [S83.2*10/23/2013 12/27/2020 Arthritis of knee, right [M17.11] 07/09/2014 Coronary artery disease involving [place] clay*01/09/2019 Carotid stenosis, asymptomatic, bilateral [I65.*10/02/2019 Carotid [...] Encounter Status:Closed by TAMEKA ARRIOLA on 08/15/22 [facility] 08-15-2022 Note HNO ID: [id number] Author: Tameka Arriola RN Service: ? Author [...] daily weight at home? No Based on diaper machine tender, the following disposition is advised: No symptoms or symptoms present, not severe. Routed to: No Action Needed RUTHIE Education Provided this Outreach: No Tameka Arriola RN August 15, 2022 11:39 AM [facility] 08-14-2022 Note Patient Outreach (AM [facility]) MATEO BEDOYA V ([id number]) 1945 F Date Time Provider Department 08/14/22 TAMEKA ARRIOLA During your visit today, we recorded the following information about you: Tameka Arriola RN 08/14/2022 11:29 AM Signed [facility] Telephonic Outreach Provider Action/FYI Made call #1. [...] as of 01/12/2022: Changed all Rx's to [facility]. 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] 05/10/2004 Essential hypertension, benign [I10] 12/16/2005 Elevated glucose [R73.09] 05/24/2012 Hypothyroidism [E03.9] 05/24/2012 Hyperlipidemia, mixed [E78.2] 05/24/2012 Female stress incontinence [N39.3] 08/23/2012 Acute medial meniscus tear of right knee [S83.2*10/23/2013 12/27/2020 Arthritis of knee, right [M17.11] 07/09/2014 Coronary artery disease involving [place]qs[place] clay*01/09/2019 Carotid stenosis, asymptomatic, bilateral [I65.*10/02/2019 Carotid [...] Encounter Status:Closed by TAMEKA ARRIOLA on 08/14/22 [facility] 08-14-2022 Note HNO ID: [id number] Author: Tameka Arriola RN Service: ? Author Type: Registered Nurse Type: Progress Notes Filed: 08/14/2022 11:29 AM Note Text: [facility] Telephonic Outreach Provider Action/FYI Made call #1. NA/left vm. Contacted for: Routine Telephonic Outreach Contact made with patient: No, left message. Tameka Arriola RN August 14, 2022 11:29 AM [facility] 07-14-2022 Note HNO ID: [id number] Author: Alejandra Valle MD Service: ? Author Type: Physician Type: Progress Notes Filed: 07/14/2022 5:27 PM Note Text: Chief Complaint Patient presents with: F/U 6 Month HPI Mateo Bedoya is a 77 year old female who presents here today for 6 month follow up. Here with her . No bowel, Gi, or urinary issues. Declines wanting to complete colon cancer screening. Follows with [facility] [employer] [facility] Dr. Kent who prescribes Ditropan xl 10 mg daily for OAB. Pain: Controlled on Gabapentin 300 mg 2 pills BID. Stable with use of medication. CAD/Lipid: Follows with [facility] Dr. Man. Follows with Vascular [...] wanted to control with lifestyle. Follows with [facility], scheduled to see them in August. HTN: Denies checking BP at home, no chest pains, dizziness, or SOB. Taking HCTZ 12.5 mg daily, Losartan 50 mg 2 pills once daily and Atenolol 100 mg BID. Still following with [facility], last seen 06/06/22. Follow up annually. Thyroid: [...] OR EXPOSED ROOT (ELEVATION AND/OR FORCEPS REMOVAL) [place] teeth LAPAROSCOPY SURG CHOLECYSTECTOMY 90s Cholecystectomy, lap OOPHORECTOMY PARTIAL/TOTAL UNI/BI 80s Oophorectomy PAST SURGICAL HISTORY OF 80s 10 surgeries 14 abd tumors, all benign PAST SURGICAL HISTORY OF 12/16/2015 Dr. Reinoso, skin lesion removed PAST SURGICAL HISTORY OF Right 07/04/2016 right breast needle biopsy, benign - Dr. Reinoso PAST SURGICAL HISTORY OF N/A 05/23/2018 4 stents placed by [facility] PAST SURGICAL HISTORY OF N/A 08/14/2018 5th stent placed by [facility] PAST SURGICAL HISTORY OF Right right upper [...] mL (BD POSIFLUSH (more content not included)... [facility] 07-13-2022 Note HNO ID: [id number] Author: Tameka Arriola RN Service: ? Author [...] daily weight at home? No Based on diaper machine tender, the following disposition is advised: Symptoms present, not severe. Routed to: No Action Needed RUTHIE Education Provided this Outreach: No Tameka Arriola RN July 13, 2022 3:54 PM [facility] 07-13-2022 History of Present illness Narrative CDM Telephonic Outreach Provider Action/FYI Pt denies new or worsening CDM symptoms. Pt states rogelio has seen all her doctors recently and [...] daily weight at home? No Based on diaper machine tender, the following disposition is advised: Symptoms present, not severe. Routed to: No Action Needed RUTHIE Education Provided this Outreach: No Tameka Arriola RN July 13, 2022 3:54 PM documented in this encounter [facility] 07-13-2022 Note Patient Outreach ([place] [facility] MATEO BEDOYA V ([id number]) 1945 F Date Time Provider Department 07/13/22 [...] daily weight at home? No Based on diaper machine tender, the following disposition is advised: Symptoms present, [...] as of 01/12/2022: Changed all Rx's to [facility]. 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] 05/10/2004 Essential hypertension, benign [I10] 12/16/2005 Elevated glucose [R73.09] 05/24/2012 Hypothyroidism [E03.9] 05/24/2012 Hyperlipidemia, mixed [E78.2] 05/24/2012 Female stress incontinence [N39.3] 08/23/2012 Acute medial meniscus tear of right knee [S83.2*10/23/2013 12/27/2020 Arthritis of knee, right [M17.11] 07/09/2014 Coronary artery disease involving nuiqs[place] clay*01/09/2019 Carotid stenosis, asymptomatic, bilateral [I65.*10/02/2019 Carotid [...] Encounter Status:Closed by TAMEKA ARRIOLA on 07/13/22 [facility] 07-12-2022 Note HNO ID: [id number] Author: Jen Mary Service: ? Author Type: ? Type: Progress Notes Filed: 07/12/2022 6:12 PM Note Text: Summary: I year follow up C Lisa # [id number] Study Name: Mesfin Knott PI: RosJose Dobbins Study Visit: Follow- up Visit I met [...] assessment completed per protocol: Yes: Normal Modified [place] completed per protocol: Yes: 0 = No symptoms Discussed with the patient the importance of follow up in the study. Patient verbalized understanding. Next study visit will be in 1 year in clinic for her 2 year follow up Patient contact information reaffirmed and updated. Coordinator contact information provided to the patient. Education provided: Follow up requirements/schedule Materials dispensed: None Batterboard Setter: Jen Mary RN Pager #: [phone] [facility] 07-12-2022 History of Present illness Narrative Summary: I year follow up Mickey Gonzalez # [id number] Study Name: Mesfin Knott PI: Claudia Wilson [...] assessment completed per protocol: Yes: Normal Modified [place] completed per protocol: Yes: 0 = No symptoms Discussed with the patient the importance of follow up in the study. Patient verbalized understanding. Next study visit will be in 1 year in clinic for her 2 year follow up Patient contact information reaffirmed and updated. Coordinator contact information provided to the patient. Education provided: Follow up requirements/schedule Materials dispensed: None Batterboard Setter: Jen Mary RN Pager #: [phone] documented in this encounter [facility] 07-12-2022 Note HNO ID: [id number] Author: Diomedes Riddle MD Service: ? Author Type: Physician Type: Progress Notes Filed: 07/13/2022 10:20 AM Note Text: [facility] [place] DEPARTMENT OF VASCULAR SURGERY OUTPATIENT VISIT DATE [...] OR EXPOSED ROOT (ELEVATION AND/OR FORCEPS REMOVAL) [place] teeth LAPAROSCOPY SURG CHOLECYSTECTOMY 90s Cholecystectomy, lap OOPHORECTOMY PARTIAL/TOTAL UNI/BI 80s Oophorectomy PAST SURGICAL HISTORY OF 80s 10 surgeries 14 abd tumors, all benign PAST SURGICAL HISTORY OF 12/16/2015 Dr. Reinoso, skin lesion removed PAST SURGICAL HISTORY OF Right 07/04/2016 right breast needle biopsy, benign - Dr. Reinoso PAST SURGICAL HISTORY OF N/A 05/23/2018 4 stents placed by [facility] PAST SURGICAL HISTORY OF N/A 08/14/2018 5th stent placed by [facility] PAST SURGICAL HISTORY OF Right right upper [...] Mid: PSV: 14 (more content not included)... [facility] 07-12-2022 History of Present illness Narrative Images from the original note were not included. [facility] [place] DEPARTMENT OF VASCULAR SURGERY OUTPATIENT VISIT DATE [...] OR EXPOSED ROOT (ELEVATION AND/OR FORCEPS REMOVAL) [place] teeth LAPAROSCOPY SURG CHOLECYSTECTOMY 90s Cholecystectomy, lap OOPHORECTOMY PARTIAL/TOTAL UNI/BI 80s Oophorectomy PAST SURGICAL HISTORY OF 80s 10 surgeries 14 abd tumors, all benign PAST SURGICAL HISTORY OF 12/16/2015 Dr. Reinoso, skin lesion removed PAST SURGICAL HISTORY OF Right 07/04/2016 right breast needle biopsy, benign - Dr. Reinoos PAST SURGICAL HISTORY OF N/A 05/23/2018 4 stents placed by [facility] PAST SURGICAL HISTORY OF N/A 08/14/2018 5th stent placed by [facility] PAST SURGICAL HISTORY OF Right right upper tooth implant THYROIDECTOMY TOTAL/COMPLETE 2004 large nodule. Complete TOTAL ABDOMINAL HYSTERECT W/WO RMVL TUBE OVARY 80s Hysterectomy, IBNG TOTAL HIP JOINT REPLACEMENT Right 01/15/2020 [facility] [...] DATE: July 12, 2022 TIME: 3:36 PM [facility] STAFF PHYSICIAN NOTE OF PERSONAL [...] Diomedes Riddle MD documented in this encounter [facility] 06-29-2022 Miscellaneous Notes The following approved [...] Last Labs: 01/06/2022 documented in this encounter [facility] 06-08-2022 Note HNO ID: [id number] Author: Cayetano Funes RN Service: ? Author Type: Registered Nurse Type: Progress Notes Filed: 06/08/2022 3:38 PM Note Text: INSIGHT [facility] TELEPHONIC OUTREACH Provider Action/FYI: - ckd, htn, dm - per pt, she was with her licensing registration examiner yesterday and was told she is doing [...] like to speak with a social work child care team lead to help give you support for any [...] you up for automated weekly questionnaires through [employer]. This is an easy way for us [...] the Track Pt Outreach and End outreach. [facility] 06-08-2022 Note Patient Outreach ([facility] MATEO BEDOYA V ([id number]) 1945 F Date Time Provider Department 06/08/22 CAYETANO FUNES During your visit today, we recorded the following information about you: Cayetano Funes RN 06/08/2022 3:38 PM Signed [facility] TELEPHONIC OUTREACH Provider Action/I: - ckd, htn, dm - per pt, she was with her licensing registration examiner yesterday and was told she is doing [...] like to speak with a social work child care team lead to help give you support for any [...] you up for automated weekly questionnaires through [employer]. This is an easy way for us [...] mL (BD PO (more content not included)... [facility] 05-05-2022 Note Patient Outreach (AM [facility] MATEO BEDOYA V ([id number]) 1945 F Date Time Provider Department 05/05/22 TAMEKA ARRIOLA During your visit today, we recorded the following information about you: Tameka Arriola RN 05/05/2022 11:22 AM Signed [facility] TELEPHONIC OUTREACH FYI: Made call to patient. [...] like to speak with a social work child care team lead to help give you support for any [...] you up for automated weekly questionnaires through [employer]. This is an easy way for us [...] daily. Facility-Administered Medications as of 05/05/2022 - perfparris magdaleno (more content not included)... [facility] 05-05-2022 Note HNO ID: [id number] Author: Tameka Arriola RN Service: ? Author [...] like to speak with a social work child care team lead to help give you support for any [...] you up for automated weekly questionnaires through [employer]. This is an easy way for us [...] the Track Pt Outreach and End outreach. [facility] 05-05-2022 History of Present illness Narrative [...] like to speak with a social work child care team lead to help give you support for any [...] you up for automated weekly questionnaires through [employer]. This is an easy way for us [...] and End outreach. documented in this encounter [facility] 04-04-2022 History of Present illness Narrative [...] like to speak with a social work child care team lead to help give you support for any [...] you up for automated weekly questionnaires through [employer]. This is an easy way for us [...] Outreach. End outreach documented in this encounter [facility] 03-22-2022 Miscellaneous Notes Authorized from February [...] Provider: Dr Marianela Valle Insurance Company Name: [facility] Medicaid [employer] Phone number: [phone] Patient ID number: [id number] Pharmacy Name: [facility] Telephone number: [phone] Moon Bennett LPN documented in this encounter [facility] 03-21-2022 Miscellaneous Notes OK to refill [...] patient. Corie Watson documented in this encounter [facility] 03-13-2022 Miscellaneous Notes The following approved [...] Dang Huitron Pss documented in this encounter [facility] 02-07-2022 History of Present illness Narrative [...] like to speak with a social work child care team lead to help give you support for any [...] you up for automated weekly questionnaires through [employer]. This is an easy way for us [...] and End outreach. documented in this encounter [facility] 01-19-2022 History of Present illness Narrative Images from the original note were not included. Heart [facility] [place] DEPARTMENT OF VASCULAR SURGERY OUTPATIENT VISIT DATE [...] OR EXPOSED ROOT (ELEVATION AND/OR FORCEPS REMOVAL) [place] teeth LAPAROSCOPY SURG CHOLECYSTECTOMY 90s Cholecystectomy, lap OOPHORECTOMY PARTIAL/TOTAL UNI/BI 80s Oophorectomy PAST SURGICAL HISTORY OF 80s 10 surgeries 14 abd tumors, all benign PAST SURGICAL HISTORY OF 12/16/2015 Dr. Reinoso, skin lesion removed PAST SURGICAL HISTORY OF Right 07/04/2016 right breast needle biopsy, benign - Dr. Reinoso PAST SURGICAL HISTORY OF N/A 05/23/2018 4 stents placed by [facility] PAST SURGICAL HISTORY OF N/A 08/14/2018 5th stent placed by [facility] PAST SURGICAL HISTORY OF Right right upper [...] TIME: 10:14 AM documented in this encounter [facility] 01-18-2022 History of Present illness Narrative Summary: Follow up Visit [facility] # [id number] Study Name: [facility] PI: Claudia Wilson Study Visit: Follow- up Visit I met with the patient for the 180 day follow up for the [facility] Study. Reaffirmed that the [...] assessment completed per protocol: Yes: Normal Modified [place] completed per protocol: Yes: 0 = No symptoms Discussed with the patient the importance of follow up in the study. Patient verbalized understanding. Next study visit will be in 180 days in clinic for her 1 yr followup. Patient contact information reaffirmed and updated. Coordinator contact information provided to the patient. Education provided: Follow up requirements/schedule Materials dispensed: Coordinator Contact Card Batterboard Setter: Jen Mary RN Pager #: [phone] documented in this encounter [facility] 01-06-2022 History of Present illness Narrative POPULATION HEALTH NAVIGATION OUTREACH Action/FYI Patient due for JESSICA Patient states she sees outside provider. Saw Dr. Moon at [facility] on 08/26/2021. States she does [...] 2022 3:16 PM documented in this encounter [facility] 12-14-2021 History of Present illness Narrative [...] like to speak with a social work child care team lead to help give you support for any [...] you up for automated weekly questionnaires through [employer]. This is an easy way for us [...] and End outreach. documented in this encounter [facility] 12-13-2021 Miscellaneous Notes Left message on patient's cell number (preferred number) regarding 12/28/21 appointments rescheduling for 01/18/22. Provided [phone] as call back number. Vicky Palma Research Coordinator- Cardiothoracic and Vascular Surgery documented in this encounter [facility] 12-13-2021 History of Present illness Narrative INSIGHT CDM TELEPHONIC OUTREACH Provider Action/FYI: Contact made with patient: No - Left message Marcos my name is Radha Carrizales RN your Descriptive Catalog Librarian from the [facility] I am calling today for your bi-weekly check in. I am sorry I missed your call. I will reach out to you again tomorrow. (if the third call I will reach out to you again next week) Enter next patient outreach date for the following day using the Track Pt Outreach. End outreach. documented in this encounter [facility] 11-25-2021 Instructions Pauly Bowman APRN.MARTIN - [...] get into PMD documented in this encounter [facility] 11-25-2021 History of Present illness Narrative Images from the original note were not included. Subjective The history is provided by the patient. No language translator was used. HPI Mateo Bedoya is a 76 year [...] have confirmed and edited as necessary, the [facility] Review of Systems Constitutional: Negative for [...] Pauly Bowman APRN.CNP documented in this encounter [facility] 11-15-2021 History of Present illness Narrative [...] like to speak with a social work child care team lead to help give you support for any [...] you up for automated weekly questionnaires through [employer]. This is an easy way for us [...] and End outreach. documented in this encounter [facility] 10-18-2021 History of Present illness Narrative [facility] CDM Enrollment Provider Action/FYI: Patient referred by: [facility] Priti Contact made with patient: Yes - Patient identified by name and . Discussed care with patient Marcos this is Radha Carrizales, DESTINEE and I am calling from Alejandra Valle MD office at the [facility]. I am a RN Descriptive Catalog Librarian with our [facility] Chronic Disease Management program. [...] few questions once a week through your [employer] account. It will automatically show up for [...] goal align with programs offered at the [facility]? Yes Chronic Disease Management patient goals yes: Weight loss Most people know what to do to become healthier, yet struggle to put it into action on their own.It can be hard to maintain a healthy lifestyle, especially when life is so stressful. Can we connect you with a [facility] Health Front Office Supervisor to find a program that could help [...] today s date) documented in this encounter [facility] 10-11-2021 History of Present illness Narrative PRIMARY CARE COORDINATION QUICK NOTE Provider Action/FYI Enrollment intro sent to patient via my chart. Will follow up with a phone call within the next few days. Patient identified by name and date . Radha Carrizales RN Medical Claims Manager documented in this encounter [facility] 08-18-2021 History of Present illness Narrative Images from the original note were not included. Heart , Vascular and Thoracic [place] DEPARTMENT OF VASCULAR SURGERY OUTPATIENT VISIT DATE [...] OR EXPOSED ROOT (ELEVATION AND/OR FORCEPS REMOVAL) [place] teeth LAPAROSCOPY SURG CHOLECYSTECTOMY 90s Cholecystectomy, lap OOPHORECTOMY PARTIAL/TOTAL UNI/BI 80s Oophorectomy PAST SURGICAL HISTORY OF 80s 10 surgeries 14 abd tumors, all benign PAST SURGICAL HISTORY OF 12/16/2015 Dr. Reinoso, skin lesion removed PAST SURGICAL HISTORY OF Right 07/04/2016 right breast needle biopsy, benign - Dr. Reinoso PAST SURGICAL HISTORY OF N/A 05/23/2018 4 stents placed by [facility] PAST SURGICAL HISTORY OF N/A 08/14/2018 5th stent placed by [facility] PAST SURGICAL HISTORY OF Right right upper [...] DATE: August 18, 2021 TIME: 9:58 AM [facility] STAFF PHYSICIAN NOTE OF PERSONAL [...] SERVICE: 2:07 PM documented in this encounter [facility] 08-16-2021 Miscellaneous Notes August 16, 2021 PID: [id number] [address] [place] [address] Dear Ms. Bedoya, We are pleased to [...] report will be kept on file at [facility] as part of your permanent medical record and are available for your continuing care. Thank you for allowing us to help in meeting your health care needs. Sincerely, Dr. Amaya Interpreting Radiologist [facility] (Normal over 40) documented in this encounter [facility] 08-02-2021 History of Present illness Narrative [...] 2021 11:33 AM documented in this encounter [facility] 07-25-2021 History of Present illness Narrative [...] Radha Stein Ma documented in this encounter [facility] 07-21-2021 History of Present illness Narrative [...] TCM Home Visit Referral Source of Stratification: TCM [facility] Hospital Admission Status: Discharged Readmission Risk Score: 9 LIDIA Score: 2 Program referral criteria met: Does not meet referral criteria Patient does not qualify for High Risk TCM Home Visit program due to: Does not meet referral criteria Patient does not quality for High Risk TCM Home Visit Program due to: Does not meet referral criteria Preferred contact number: [phone] Is patient staying somewhere other than the [...] Valle within a wk will forward to online marketing director SUMMARY: Pt discharged from [facility] on 07/20. Admitted for: S/P Left carotid artery stent Contact made with patient: Yes Hi my name is Bri Bhardwaj RN and I am calling from the [facility] on behalf of your PCP, Alejandra [...] like to speak with a social work child care team lead to help give you support for any [...] I will send your request to a online marketing director who will contact and assist you with that appointment. This will give you an opportunity to ask any questions or address any concerns you may have with your PCP. Inform the patient that if they have any questions or concerns prior to that appointment, to call their PCP's office right away. ACTION TAKEN: Patient desires an appointment - Routed to [facility] [[id number]] for scheduling telehealth visit (telephonic, virtual visit, [...] way if possible). documented in this encounter [facility] 07-20-2021 Nurse Note Study Name: Mesfin Knott PI: Claudia Wilson Study Visit: Prior to Discharge I met with the patient for the prior to discharge for the C-Guardisandra Study. Reaffirmed that the [...] up requirements/schedule Materials dispensed: Coordinator Contact Card Batterboard Setter: Gricelda Ruiz [facility] Pager #: [phone] documented in this encounter [facility] 07-19-2021 Nurse Note Study Name: Mesfin Knott PI: Claudia Wilson Study Visit: Baseline/Screening I met with the patient for the index procedure visit for the [place] Study. Reaffirmed that the patient still wishes to participate in the study and continues to consent to the study. Index procedure successfully complete Batterboard Setter: Gricelda Ruiz [facility] Pager #: [phone] documented in this encounter [facility] 07-18-2021 Nurse Note Study Name: Mesfin [...] assessment completed per protocol: Yes: Normal Modified [place] completed per protocol: Yes: 0 = No symptoms Patient contact information reaffirmed and updated. Coordinator contact information provided to the patient. Education provided: Protocol required tests/procedures and Follow up requirements/schedule Materials dispensed: Coordinator Contact Card Batterboard Setter: Gricelda Ruiz [facility] Pager #: [phone] documented in this encounter [facility] 07-18-2021 History and physical note VASCULAR SURGERY PREOPERATIVE H&P SERVICE DATE: 07/18/21 SERVICE TIME: 1200 PRIMARY CARE PHYSICIAN: Alejandra Valle MD REFERRING PROVIDER: Diomedes Riddle [address] [facility] [id number] Consult requested for an opinion regarding the [...] OR EXPOSED ROOT (ELEVATION AND/OR FORCEPS REMOVAL) [place] teeth LAPAROSCOPIC CHOLEYCYSTECTOMY 90s Cholecystectomy, lap PAST SURGICAL HISTORY OF 80s 10 surgeries 14 abd tumors, all benign PAST SURGICAL HISTORY OF 12/16/2015 Dr. Reinoso, skin lesion removed PAST SURGICAL HISTORY OF Right 07/04/2016 right breast needle biopsy, benign - Dr. Reinoso PAST SURGICAL HISTORY OF N/A 05/23/2018 4 stents placed by [facility] PAST SURGICAL HISTORY OF N/A 08/14/2018 5th stent placed by [facility] PAST SURGICAL HISTORY OF Right right upper [...] injection (DEFINITY) INTRAVENOUS DIRECTED PRN Ashleigh Marsh, ETHICS OFFICER.INSTRUMENTATION CHEMIST sodium chloride 0.9 % (flush) 10 mL (BD POSIFLUSH) 10 mL INTRAVENOUS DIRECTED PRN Ashleigh Marsh, ETHICS OFFICER.INSTRUMENTATION CHEMIST ALLERGIES Allergen Reactions Bee Stings And Inse* [...] her neck, multiple episodes dating back to 2018. Follows with Cardiology regularly- last visit 05/2021. [...] 07/18/21 TIME: 1319 documented in this encounter [facility] 07-18-2021 History of Present illness Narrative [...] VASCULAR SURG DEPT documented in this encounter [facility] 07-18-2021 Instructions Ashleigh Marsh APRN.CNP - [...] Ashleigh Marsh APRN.MARTIN documented in this encounter [facility] 07-15-2021 Miscellaneous Notes Filed Refill request received from pharmacy. Patient last seen in office on 10/14/20. Lucy Lozoya RN documented in this encounter [facility] 07-15-2021 Miscellaneous Notes Phoned [facility], pharmacist states rx was received and will be ready for pt crop picker in a few hours. TC to pt, left detailed message on secure identified voicemail. Miguel Kendrick LPN Patient stated [facility] told her they did not get a script for her Epipen. [facility] says it was received. Please resend. documented in this encounter [facility] 07-13-2021 History of Present illness Narrative [...] OR EXPOSED ROOT (ELEVATION AND/OR FORCEPS REMOVAL) [place] teeth LAPAROSCOPIC CHOLEYCYSTECTOMY 90s Cholecystectomy, lap PAST SURGICAL HISTORY OF 80s 10 surgeries 14 abd tumors, all benign PAST SURGICAL HISTORY OF 12/16/2015 Dr. Reinoso, skin lesion removed PAST SURGICAL HISTORY OF Right 07/04/2016 right breast needle biopsy, benign - Dr. Reinoso PAST SURGICAL HISTORY OF N/A 05/23/2018 4 stents placed by [facility] PAST SURGICAL HISTORY OF N/A 08/14/2018 5th stent placed by [facility] PAST SURGICAL HISTORY OF Right right upper [...] weight loss. 6. Coronary artery disease involving nuiqsut coronary artery of nuiqsut heart, unspecified whether angina present - ICD9: [...] Past Histories independently gathered by the clinical it support specialist and the remaining scribed note accurately describes my personal service to the patient. Medical Decision Making: Problems: Moderate: 2+ stable chronic illnesses Data: Unique test result(s) reviewed: 3+ Unique test(s) ordered: 3+ Risk: Moderate: Drug management Medical Decision Making Level: 4 - Moderate Alejandra Valle MD The documentation for this note was completed by Radha Stein Ma acting as scribe for Alejnadra Valle MD. July 13, 2021 1:09 PM. Radha Stein Ma documented in this encounter [facility] documented in this encounter [facility] History of Past illness Narrative* Problem [...] of this encounter (statuses as of 07/13/2021) [facility] History of Past illness Narrative* Problem [...] of this encounter (statuses as of 07/15/2021) [facility] History of Past illness Narrative* Problem [...] Acute medial meniscus tear of right knee 10/23/ 014 12/27/2020 documented as of this encounter (statuses as of 07/15/2021) [facility] History of Past illness Narrative* Problem [...] of this encounter (statuses as of 07/18/2021) [facility] of Past [facility] Narrative* Problem [...] of this encounter (statuses as of 07/18/2021) [facility] of Past illness Narrative* Problem [...] of this encounter (statuses as of 07/18/2021) [facility] History of Past illness Narrative* Problem [...] of this encounter (statuses as of 07/19/2021) [facility] of Past illness Narrative* Problem [...] of this encounter (statuses as of 07/20/2021) [facility] History of Past illness Narrative* Problem [...] of this encounter (statuses as of 07/21/2021) [facility] of Past [facility] Narrative* Problem [...] Ppx: [facility] Dispo: d/c home today once AGNY removed after staff approval, tolerating diet, ambulating w/o difficulties, voiding spontaneously Carotid artery stenosis 10/21/2019 07/12/19 Last Assessment & Plan: Assessment: s/p left endarterectomy 09/2019, following [facility], pending f/u US in 5 mos Acute medial meniscus tear of right knee 014 12/27/2020 documented as of this encounter (statuses as of 07/25/2021) [facility] History of Past illness Narrative* Problem [...] of this encounter (statuses as of 08/02/2021) [facility] of Past illness Narrative* Problem [...] of this encounter (statuses as of 08/18/2021) [facility] of Past illness Narrative* Problem [...] of this encounter (statuses as of 08/18/2021) [facility] of Past illness Narrative* Problem [...] of this encounter (statuses as of 10/12/2021) [facility] of Past [facility] Narrative* Problem [...] of this encounter (statuses as of 10/18/2021) [facility] History of Past illness Narrative* Problem [...] of this encounter (statuses as of 11/15/2021) [facility] of Past illness Narrative* Problem [...] of this encounter (statuses as of 11/25/2021) [facility] Past [facility] Narrative* Problem [...] of this encounter (statuses as of 12/13/2021) [facility] of Past illness Narrative* Problem [...] of this encounter (statuses as of 12/14/2021) [facility] Narrative* Problem [...] of this encounter (statuses as of 01/06/2022) [facility] Narrative* Problem [...] of this encounter (statuses as of 01/18/2022) [facility] Narrative* Problem [...] of this encounter (statuses as of 01/19/2022) [facility] Narrative* Problem [...] of this encounter (statuses as of 02/07/2022) [facility] Narrative* Problem [...] of this encounter (statuses as of 02/24/2022) [facility] Narrative* Problem [...] of this encounter (statuses as of 03/13/2022) [facility] Narrative* Problem [...] of this encounter (statuses as of 03/27/2022) [facility] Narrative* Problem [...] of this encounter (statuses as of 03/29/2022) [facility] Narrative* Problem [...] of this encounter (statuses as of 04/04/2022) [facility] Narrative* Problem [...] of this encounter (statuses as of 05/05/2022) [facility] Past [facility] Narrative* Problem [...] of this encounter (statuses as of 06/29/2022) [facility] Narrative* Problem [...] of this encounter (statuses as of 07/13/2022) [facility] Narrative* Problem [...] of this encounter (statuses as of 07/13/2022) [facility] Narrative* Problem [...] of this encounter (statuses as of 07/14/2022) [facility] Narrative* Problem [...] of this encounter (statuses as of 08/22/2022) [facility] Narrative* Problem [...] of this encounter (statuses as of 09/12/2022) [facility] Narrative* Problem [...] of this encounter (statuses as of 09/13/2022) [facility] Narrative* Problem [...] of this encounter (statuses as of 10/03/2022) [facility] Narrative* Problem [...] of this encounter (statuses as of 10/11/2022) [facility] Narrative* Problem [...] of this encounter (statuses as of 11/09/2022) [facility] N[facility]ative* Problem [...] of this encounter (statuses as of 11/21/2022) [facility] Narrative* Problem [...] of this encounter (statuses as of 12/06/2022) [facility] Narrative* Problem [...] of this encounter (statuses as of 01/02/2023) [facility]* Problem [...] of this encounter (statuses as of 01/04/2023) [facility] Narrative* Problem [...] of this encounter (statuses as of 01/08/2023) [facility] Narrative* Problem [...] of this encounter (statuses as of 01/09/2023) [facility] Narrative* Problem [...] of this encounter (statuses as of 01/15/2023) [facility] Narrative* Problem [...] of this encounter (statuses as of 01/28/2023) [facility] Narrative* Problem [...] ID: no further need for abx Ppx: [facility] Dispo: d/c home today once ANGY removed after staff approval, tolerating diet, ambulating w/o difficulties, voiding spontaneously Carotid artery stenosis 10/21/201906/24 Last Assessment & Plan: Assessment: s/p left endarterectomy 09/2019, following [facility], pending f/u US in 5 mos Acute medial meniscus tear of right knee 10/23/2013 12/27/2020 documented as of this encounter (statuses as of 02/01/2023) [facility] Narrative* Problem [...] of this encounter (statuses as of 02/02/2023) [facility] Narrative* Problem [...] of this encounter (statuses as of 02/06/2023) [facility] Narrative* Problem [...] of this encounter (statuses as of 02/21/2023) [facility] Narrative* Problem [...] of this encounter (statuses as of 02/28/2023) [facility] N[facility]* Problem [...] of this encounter (statuses as of 03/01/2023) [facility] Narrative* Problem [...] of this encounter (statuses as of 03/07/2023) [facility] N[facility]* Problem [...] of this encounter (statuses as of 03/12/2023) [facility] Narrative* Problem [...] of this encounter (statuses as of 04/27/2023) [facility] Narrative* Problem [...] of this encounter (statuses as of 05/03/2023) [facility] Narrative* Problem [...] of this encounter (statuses as of 05/04/2023) [facility] Narrative* Problem [...] of this encounter (statuses as of 05/04/2023) [facility] Narrative* Problem [...] of this encounter (statuses as of 05/04/2023) [facility] Diagnosis Overactive bladder Hypertonicity of bladder [...] Preoperative examination, unspecified [facility]* Diagnosis Carotid stenosis, asymptomatic, bilateral- Primary [...] study patient- [facility]- Primary [facility] Hospital discharge follow-up- Primary Other follow-up examination Thickening of tendon Other disorders of synovium, tendon, and bursa Carotid stenosis, left Occlusion and stenosis of carotid artery without mention of cerebral infarction Type 2 diabetes mellitus with stage 3a chronic kidney disease, without long-term current use of insulin (HCC) Coronary artery disease involving nuiqs[place] coronary artery of nuiqs[place] heart, unspecified whether angina present Essential hypertension, [...] nonspecific skin eruption [facility] Diagnosis Rash- Primary Rash and other nonspecific skin eruption [facility] Diagnosis Essential hypertension, benign [facility] Diagnosis Arthritis of hip- Primary Unspecified arthropathy, pelvic region and thigh [facility] Diagnosis Pain in left hip Pain in joint, pelvic region and thigh [facility] Diagnosis Essential hypertension, benign- Primary Hyperlipidemia, mixed Mixed hyperlipidemia Type 2 diabetes mellitus with stage 3a chronic kidney disease, without long-term current use of insulin (HCC) Acquired hypothyroidism Unspecified hypothyroidism Overactive bladder Hypertonicity of bladder Nerve pain Neuralgia, neuritis, and radiculitis, unspecified Coronary artery disease involving nuiqs[place] coronary artery of nuiqs[place] heart, unspecified whether angina present Benign neoplasm of cerebral meninges (HCC) Benign neoplasm of cerebral meninges [facility] Diagnosis Primary osteoarthritis of left hip- Primary Primary localized osteoarthrosis, pelvic region and thigh documented in this encounter [facility] Plan of care note* Visit Details [...] for LB dressing documented in this encounter [facility] Plan of care note* Visit Details [...] Discuss all medications you are taking, even wckj-wjx-nytolet medicines, with your provider and pharmacist since [...] home exercise program. documented in this encounter [facility] for referral (narrative)* Diagnostic Procedure Only (Routine) - Authorized Specialty Diagnoses / Procedures Referred By Wanda leos Referred To Contact [facility] Diagnoses Encounter for screening mammogram for malignant neoplasm of breast Procedures KIM SCREENING SCREENING MAMMOGRAPHY BI 2-VIEW BREAST INC CAD Alejandra Valle MD [address] [place] [address] [facility] [address] [place] [address] Referral ID Status Reason Start Date Expiration Date Visits Requested Visits Authorized [id number] Authorized Auto-Generat ed Referral 07/13/2021 08/12/2022 1 1 [facility] for referral (narrative)* Outpatient Procedure (Routine) - Pending Review Specialty Diagnoses / Procedures Referred By Wanda leos Referred To Contact [facility] Diagnoses Carotid stenosis, asymptomatic, bilateral Examination of participant in clinical trial Procedures US CAROTID ARTERIES [facility] DUPLEX SCAN EXTRACRANIAL ART COMPL BI STUDY Diomedes Riddle MD [address] [place] [address] [facility] [place] [address] [place] [address] Referral ID Status Reason Start Date Expiration Date Visits Requested Visits Authorized [id number] Pending Review Auto-Generat ed Referral 07/12/2022 02/22/2023 1 1 [facility] for referral (narrative)* Diagnostic Procedure Only (Routine) - Closed Specialty Diagnoses / Procedures Referred By Wanda leos Referred To Contact XR IMAGING Diagnoses Pain in left hip Procedures XR HIP GENERAL 3V PELV/AP/LAT LEFT RADEX HIP UNILATERAL WITH PELVIS 2-3 VIEWS Eros Jay PA-C [address] [place] [address] [place] [address] Referral ID Status Reason Start Date Expiration Date V isits Requested Visits Authorized [id number] Closed Auto-Generate d Referral 12/22/2022 01/21/2024 1 1 [facility] for visit Narrative* Diagnostic Procedure Only (Routine) - Closed Specialty Diagnoses / Procedures Referred By Wanda leos Referred To Contact [facility] Diagnoses Visit for screening mammogram Procedures KIM SCREENING SCREENING MAMMOGRAPHY BI 2-VIEW BREAST INC Alejandra Cordon MD [address] [place] [address] [facility] [address] [place] [address] Referral ID Status Reason Start Date Expiration Date V isits Requested Visits Authorized [id number] Closed Auto-Generate d Referral 07/27/2022 08/24/2023 1 1 [facility] Advance Directives Documents on File Type Date Recorded Patient Manager Psychology Expl anation Advance Directive(s) 04/16/2017 11:17 AM Latest Code Status on File Code Status Date Activated Date Inactivated Comments Full Code 01/19/2020 5:04 PM 07/19/2021 5:23 AM Full Code 01/15/2020 2:00 PM 01/17/2020 8:35 PM Full Code Order Discussed With: Discussion Not M edically Appropriate Documents on File Type Date Recorded Patient Manager Psychology Expl anation Advance Directive(s) Advance Directive(s) 01/08/2020 11:12 AM Advance Directive(s) 10/21/2019 7:32 AM Advance Directive(s) 10/08/2019 1:16 PM Advance Directive(s) 04/16/2017 11:17 AM Latest Code Status on File Code Status Date Activated Date Inactivated Comments Full Code 01/19/2020 5:04 PM Full Code 01/15/2020 2:00 PM 01/17/2020 8:35 PM Documents on File Type Date Recorded Patient Manager Psychology Expl anation Advance Directive(s) Advance Directive(s) 01/08/2020 11:12 AM Advance Directive(s) 10/21/2019 7:32 AM Advance Directive(s) 10/08/2019 1:16 PM Advance Directive(s) 04/16/2017 11:17 AM Latest Code Status on File Code Status Date Activated Date Inactivated Comments Full Code 01/19/2020 5:04 PM Documents on File Type Date Recorded Patient Manager Psychology Expl anation Advance Directive(s) Advance Directive(s) 07/18/2021 1:59 PM Advance Directive(s) 01/08/2020 11:12 AM Advance Directive(s) 10/21/2019 7:32 AM Advance Directive(s) 10/08/2019 1:16 PM Advance Directive(s) 04/16/2017 11:17 AM Documents on File Type Date Recorded Patient Manager Psychology Expl anation Advance Directive(s) 04/16/2017 11:17 AM [...] Documents on File Type Date Recorded Patient Manager Psychology Expl anation Advance Directive(s) 04/26/2023 5:37 AM [...] Documents on File Type Date Recorded Patient Manager Psychology Expl anation Advance Directive(s) 04/26/2023 5:37 AM [...] Referral Specialty Diagnoses / Procedures Referred By Wanda leos [place] [address] [place] [address] Referral ID Status Reason Start Date Expiration Date V isits Requested Visits Authorized [id number] Authorized 02/20/2022 03/22/2023 1 1 Specialty Diagnoses / Procedures Referred By Contac t Referred To Contact [facility] Diagnoses Primary osteoarthritis of left hip Procedures CONSULT TO PHYSICAL THERAPY PHYSICAL THERAPY EVALUATION HIGH COMPLEX 45 MINS Eros Jay PA-C [address] [address] [facility] [place] [address] [place] [address] Referral ID Status Reason Start Date Expiration Date Visits Requested Visits Authorized [id number] Pending Review Auto-Generat ed Referral 05/09/2023 03/05/2024 1 1 Specialty Diagnoses / Procedures Referred By Contac t Referred To Contact XR IMAGING Diagnoses Primary osteoarthritis of left hip Procedures XR HIP GENERAL 3V PELV/AP/LAT LEFT RADEX HIP UNILATERAL WITH PELVIS 2-3 VIEWS Eros Jay PA-C [address] [address] [facility] [place] [address] Referral ID Status Reason Start Date Expiration Date Visits Requested Visits Authorized [id number] Pending Review Auto-Generat ed Referral 3 04/04/2024 1 1 Specialty Diagnoses / Procedures Referred By Contac t Referred To Contact Anesthesiology Diagnoses Primary osteoarthritis of left hip Procedures CONSULT TO ANESTHESIOLOGY OFFICE/OUTPATIENT NEW HIGH MDM 60-74 MINUTES Eros Jay PA-C [address] [address] Referral ID Status Reason Start Date Expiration Date Visits Requested Visits Authorized [id number] Pending Review PCP Requested Referral 3 03/05/2024 1 1 Specialty Diagnoses / Procedures Referred By Contac t Referred To Contact [facility] Diagnoses Primary osteoarthritis of left hip Procedures ECG COMPLETE ECG ROUTINE ECG W/LEAST 12 LDS W/I&R Eros Jay PA-C [address] [address] [facility] [place] [address] [place] [address] Referral ID Status Reason Start Date Expiration Date Visits Requested Visits Authorized [id number] Pending Review Auto-Generat ed Referral 3 03/05/2024 [...] or prosecute any alcohol or drug abuse patient.[facility] the event this information is protected by the Federal Confidentiality of Alcohol and Drug Abuse Patient Records regulations: The Federal rules restrict any use of the information to criminally investigate or prosecute any alcohol or drug abuse patient.[facility] the event this information is protected by the Federal Confidentiality of Alcohol and Drug Abuse Patient Records regulations: The Federal rules restrict any use of the information to criminally investigate or prosecute any alcohol or drug abuse patient.[facility] the event this information is protected by the Federal Confidentiality of Alcohol and Drug Abuse Patient Records regulations: The Federal rules restrict any use of the information to criminally investigate or prosecute any alcohol or drug abuse patient.[facility] the event this information is protected by the Federal Confidentiality of Alcohol and Drug Abuse Patient Records regulations: The Federal rules restrict any use of the information to criminally investigate or prosecute any alcohol or drug abuse patient.[facility] event this information is protected by the Federal Confidentiality of Alcohol and Drug Abuse Patient Records regulations: The Federal rules restrict any use of the information to criminally investigate or prosecute any alcohol or drug abuse patient.[facility]In the event this information is protected by the Federal Confidentiality of Alcohol and Drug Abuse Patient Records regulations: The Federal rules restrict any use of the information to criminally investigate or prosecute any alcohol or drug abuse patient.[facility] HospitalIn the event this information is protected by the Federal Confidentiality of Alcohol and Drug Abuse Patient Records regulations: The Federal rules restrict any use of the information to criminally investigate or prosecute any alcohol or drug abuse patient.[facility] HospitalIn the event this information is protected by the Federal Confidentiality of Alcohol and Drug Abuse Patient Records regulations: The Federal rules restrict any use of the information to criminally investigate or prosecute any alcohol or drug abuse patient.[facility] HospitalIn the event this information is protected by the Federal Confidentiality of Alcohol and Drug Abuse Patient Records regulations: The Federal rules restrict any use of the information to criminally investigate or prosecute any alcohol or drug abuse patient.[facility] HospitalIn the event this information is protected by the Federal Confidentiality of Alcohol and Drug Abuse Patient Records regulations: The Federal rules restrict any use of the information to criminally investigate or prosecute any alcohol or drug abuse patient.[facility] HospitalIn the event this information is protected by the Federal Confidentiality of Alcohol and Drug Abuse Patient Records regulations: The Federal rules restrict any use of the information to criminally investigate or prosecute any alcohol or drug abuse patient.[facility] HospitalIn the event this information is protected by the Federal Confidentiality of Alcohol and Drug Abuse Patient Records regulations: The Federal rules restrict any use of the information to criminally investigate or prosecute any alcohol or drug abuse patient.[facility] HospitalIn the event this information is protected by the Federal Confidentiality of Alcohol and Drug Abuse Patient Records regulations: The Federal rules restrict any use of the information to criminally investigate or prosecute any alcohol or drug abuse patient.[facility] HospitalIn the event this information is protected by the Federal Confidentiality of Alcohol and Drug Abuse Patient Records regulations: The Federal rules restrict any use of the information to criminally investigate or prosecute any alcohol or drug abuse patient.[facility] HospitalIn the event this information is protected by the Federal Confidentiality of Alcohol and Drug Abuse Patient Records regulations: The Federal rules restrict any use of the information to criminally investigate or prosecute any alcohol or drug abuse patient.[facility] HospitalIn the event this information is protected by the Federal Confidentiality of Alcohol and Drug Abuse Patient Records regulations: The Federal rules restrict any use of the information to criminally investigate or prosecute any alcohol or drug abuse patient.[facility] HospitalIn the event this information is protected by the Federal Confidentiality of Alcohol and Drug Abuse Patient Records regulations: The Federal rules restrict any use of the information to criminally investigate or prosecute any alcohol or drug abuse patient.[facility] HospitalIn the event this information is protected by the Federal Confidentiality of Alcohol and Drug Abuse Patient Records regulations: The Federal rules restrict any use of the information to criminally investigate or prosecute any alcohol or drug abuse patient.[facility] HospitalIn the event this information is protected by the Federal Confidentiality of Alcohol and Drug Abuse Patient Records regulations: The Federal rules restrict any use of the information to criminally investigate or prosecute any alcohol or drug abuse patient.[facility] HospitalIn the event this information is protected by the Federal Confidentiality of Alcohol and Drug Abuse Patient Records regulations: The Federal rules restrict any use of the information to criminally investigate or prosecute any alcohol or drug abuse patient.[facility] HospitalIn the event this information is protected by the Federal Confidentiality of Alcohol and Drug Abuse Patient Records regulations: The Federal rules restrict any use of the information to criminally investigate or prosecute any alcohol or drug abuse patient.[facility] HospitalIn the event this information is protected by the Federal Confidentiality of Alcohol and Drug Abuse Patient Records regulations: The Federal rules restrict any use of the information to criminally investigate or prosecute any alcohol or drug abuse patient.[facility] HospitalIn the event this information is protected by the Federal Confidentiality of Alcohol and Drug Abuse Patient Records regulations: The Federal rules restrict any use of the information to criminally investigate or prosecute any alcohol or drug abuse patient.[facility] HospitalIn the event this information is protected by the Federal Confidentiality of Alcohol and Drug Abuse Patient Records regulations: The Federal rules restrict any use of the information to criminally investigate or prosecute any alcohol or drug abuse patient.[facility] HospitalIn the event this information is protected by the Federal Confidentiality of Alcohol and Drug Abuse Patient Records regulations: The Federal rules restrict any use of the information to criminally investigate or prosecute any alcohol or drug abuse patient.[facility] HospitalIn the event this information is protected by the Federal Confidentiality of Alcohol and Drug Abuse Patient Records regulations: The Federal rules restrict any use of the information to criminally investigate or prosecute any alcohol or drug abuse patient.[facility] HospitalIn the event this information is protected by the Federal Confidentiality of Alcohol and Drug Abuse Patient Records regulations: The Federal rules restrict any use of the information to criminally investigate or prosecute any alcohol or drug abuse patient.[facility] HospitalIn the event this information is protected by the Federal Confidentiality of Alcohol and Drug Abuse Patient Records regulations: The Federal rules restrict any use of the information to criminally investigate or prosecute any alcohol or drug abuse patient.[facility] HospitalIn the event this information is protected by the Federal Confidentiality of Alcohol and Drug Abuse Patient Records regulations: The Federal rules restrict any use of the information to criminally investigate or prosecute any alcohol or drug abuse patient.[facility] HospitalIn the event this information is protected by the Federal Confidentiality of Alcohol and Drug Abuse Patient Records regulations: The Federal rules restrict any use of the information to criminally investigate or prosecute any alcohol or drug abuse patient.[facility] HospitalIn the event this information is protected by the Federal Confidentiality of Alcohol and Drug Abuse Patient Records regulations: The Federal rules restrict any use of the information to criminally investigate or prosecute any alcohol or drug abuse patient.[facility] HospitalIn the event this information is protected by the Federal Confidentiality of Alcohol and Drug Abuse Patient Records regulations: The Federal rules restrict any use of the information to criminally investigate or prosecute any alcohol or drug abuse patient.[facility] HospitalIn the event this information is protected by the Federal Confidentiality of Alcohol and Drug Abuse Patient Records regulations: The Federal rules restrict any use of the information to criminally investigate or prosecute any alcohol or drug abuse patient.[facility] HospitalIn the event this information is protected by the Federal Confidentiality of Alcohol and Drug Abuse Patient Records regulations: The Federal rules restrict any use of the information to criminally investigate or prosecute any alcohol or drug abuse patient.[facility] HospitalIn the event this information is protected by the Federal Confidentiality of Alcohol and Drug Abuse Patient Records regulations: The Federal rules restrict any use of the information to criminally investigate or prosecute any alcohol or drug abuse patient.[facility] HospitalIn the event this information is protected by the Federal Confidentiality of Alcohol and Drug Abuse Patient Records regulations: The Federal rules restrict any use of the information to criminally investigate or prosecute any alcohol or drug abuse patient.[facility] HospitalIn the event this information is protected by the Federal Confidentiality of Alcohol and Drug Abuse Patient Records regulations: The Federal rules restrict any use of the information to criminally investigate or prosecute any alcohol or drug abuse patient.[facility] HospitalIn the event this information is protected by the Federal Confidentiality of Alcohol and Drug Abuse Patient Records regulations: The Federal rules restrict any use of the information to criminally investigate or prosecute any alcohol or drug abuse patient.[facility] HospitalIn the event this information is protected by the Federal Confidentiality of Alcohol and Drug Abuse Patient Records regulations: The Federal rules restrict any use of the information to criminally investigate or prosecute any alcohol or drug abuse patient.[facility] HospitalIn the event this information is protected by the Federal Confidentiality of Alcohol and Drug Abuse Patient Records regulations: The Federal rules restrict any use of the information to criminally investigate or prosecute any alcohol or drug abuse patient.[facility] HospitalIn the event this information is protected by the Federal Confidentiality of Alcohol and Drug Abuse Patient Records regulations: The Federal rules restrict any use of the information to criminally investigate or prosecute any alcohol or drug abuse patient.[facility] HospitalIn the event this information is protected by the Federal Confidentiality of Alcohol and Drug Abuse Patient Records regulations: The Federal rules restrict any use of the information to criminally investigate or prosecute any alcohol or drug abuse patient.[facility] HospitalIn the event this information is protected by the Federal Confidentiality of Alcohol and Drug Abuse Patient Records regulations: The Federal rules restrict any use of the information to criminally investigate or prosecute any alcohol or drug abuse patient.[facility] HospitalIn the event this information is protected by the Federal Confidentiality of Alcohol and Drug Abuse Patient Records regulations: The Federal rules restrict any use of the information to criminally investigate or prosecute any alcohol or drug abuse patient.[facility] HospitalIn the event this information is protected by the Federal Confidentiality of Alcohol and Drug Abuse Patient Records regulations: The Federal rules restrict any use of the information to criminally investigate or prosecute any alcohol or drug abuse patient.[facility] HospitalIn the event this information is protected by the Federal Confidentiality of Alcohol and Drug Abuse Patient Records regulations: The Federal rules restrict any use of the information to criminally investigate or prosecute any alcohol or drug abuse patient.[facility] HospitalIn the event this information is protected by the Federal Confidentiality of Alcohol and Drug Abuse Patient Records regulations: The Federal rules restrict any use of the information to criminally investigate or prosecute any alcohol or drug abuse patient.[facility] HospitalIn the event this information is protected by the Federal Confidentiality of Alcohol and Drug Abuse Patient Records regulations: The Federal rules restrict any use of the information to criminally investigate or prosecute any alcohol or drug abuse patient.[facility] HospitalIn the event this information is protected by the Federal Confidentiality of Alcohol and Drug Abuse Patient Records regulations: The Federal rules restrict any use of the information to criminally investigate or prosecute any alcohol or drug abuse patient.[facility] HospitalIn the event this information is protected by the Federal Confidentiality of Alcohol and Drug Abuse Patient Records regulations: The Federal rules restrict any use of the information to criminally investigate or prosecute any alcohol or drug abuse patient.[facility] HospitalIn the event this information is protected by the Federal Confidentiality of Alcohol and Drug Abuse Patient Records regulations: The Federal rules restrict any use of the information to criminally investigate or prosecute any alcohol or drug abuse patient.[facility] HospitalIn the event this information is protected by the Federal Confidentiality of Alcohol and Drug Abuse Patient Records regulations: The Federal rules restrict any use of the information to criminally investigate or prosecute any alcohol or drug abuse patient.[facility] HospitalIn the event this information is protected by the Federal Confidentiality of Alcohol and Drug Abuse Patient Records regulations: The Federal rules restrict any use of the information to criminally investigate or prosecute any alcohol or drug abuse patient.[facility] HospitalIn the event this information is protected by the Federal Confidentiality of Alcohol and Drug Abuse Patient Records regulations: The Federal rules restrict any use of the information to criminally investigate or prosecute any alcohol or drug abuse patient.[facility] HospitalIn the event this information is protected by the Federal Confidentiality of Alcohol and Drug Abuse Patient Records regulations: The Federal rules restrict any use of the information to criminally investigate or prosecute any alcohol or drug abuse patient.[facility] HospitalIn the event this information is protected by the Federal Confidentiality of Alcohol and Drug Abuse Patient Records regulations: The Federal rules restrict any use of the information to criminally investigate or prosecute any alcohol or drug abuse patient.[facility] HospitalIn the event this information is protected by the Federal Confidentiality of Alcohol and Drug Abuse Patient Records regulations: The Federal rules restrict any use of the information to criminally investigate or prosecute any alcohol or drug abuse patient.[facility] HospitalIn the event this information is protected by the Federal Confidentiality of Alcohol and Drug Abuse Patient Records regulations: The Federal rules restrict any use of the information to criminally investigate or prosecute any alcohol or drug abuse patient.[facility] HospitalIn the event this information is protected by the Federal Confidentiality of Alcohol and Drug Abuse Patient Records regulations: The Federal rules restrict any use of the information to criminally investigate or prosecute any alcohol or drug abuse patient.[facility] HospitalIn the event this information is protected by the Federal Confidentiality of Alcohol and Drug Abuse Patient Records regulations: The Federal rules restrict any use of the information to criminally investigate or prosecute any alcohol or drug abuse patient.[facility] HospitalIn the event this information is protected by the Federal Confidentiality of Alcohol and Drug Abuse Patient Records regulations: The Federal rules restrict any use of the information to criminally investigate or prosecute any alcohol or drug abuse patient.[facility] HospitalIn the event this information is protected by the Federal Confidentiality of Alcohol and Drug Abuse Patient Records regulations: The Federal rules restrict any use of the information to criminally investigate or prosecute any alcohol or drug abuse patient.[facility] HospitalIn the event this information is protected by the Federal Confidentiality of Alcohol and Drug Abuse Patient Records regulations: The Federal rules restrict any use of the information to criminally investigate or prosecute any alcohol or drug abuse patient.[facility] Reason for Visit (unrecogniz ed section and content) Specialty Diagnoses / Procedures Referred By Contac t Referred To Contact ADMITTING Diagnoses Stenosis of left carotid artery Preop testing Procedures TCAT IV STENT CRV CRTD ART EMBOLIC PROTECJ PERC TRANSCATH PLACEMENT INTRAVASCULAR STENT(S) CERV CAROTID ARTERY INCLUDING ANGIOPLASTY WHEN PERFORMED AND RAD S&I W/DISTAL EMBOLIC PROTECTION [facility] [address] [place] [address] Referral ID Status Reason Start Date Expiration Date Visits Re quested Visits Authorized [id number] 1 1 Reason Comments 6 Month Exam [...] PELVIS 2-3 VIEWS Eros Jay PA-C [address] [place] [address] [facility] [place] [address] Referral ID Status Reason Start Date Expiration Date V isits Requested Visits Authorized [id number] Closed Auto-Generate d Referral 12/22/2022 01/21/2024 1 [...] Care Confirmation call Reason Comments Patient Question Specialty Diagnoses / Procedures Referred By Contac t Referred To Contact [facility] [address] [place] [address] Referral ID Status Reason Start Date Expiration Date Visits Re quested Visits Authorized [id number] 1 1 Care Teams (unrecognized sec tion and content) Product Marketing Coordinator Relationship Specialty Start Date End Date Alejandra Valle MD [address] [place], [place] [id number] PCP - General 08/26/08 Dixie Shin MD [address], [place] [id number] Home Care Physician Orthopedics 01/16/20 Dixie Shin MD [address] [place] [address] Referring Orthopedics 01/16/20 Cecelia Pavon, PT [address] [place] [address] [employer] Counterperson Post Acute Care 01/18/20 Product Marketing Coordinator Relationship Specialty Start Date End Date Alejandra Valle MD [address] [place] [address] PCP - General 08/26/08 Dixie Shin MD [address] [place] [address] Home Care Physician Orthopedics 01/16/20 Dixie Shin MD [address] [place] [address] Referring Orthopedics 01/16/20 Cecelia Pavon, PT [address] [place] [address] [employer] Counterperson Post Acute Care 01/18/20 Product Marketing Coordinator Relationship Specialty Start Date End Date Alejandra Valle MD [address] [place] [address] PCP - General 08/26/08 Dixie Shin MD [address] [place] [address] Home Care Physician Orthopedics 01/16/20 Dixie Shin MD [address] [place] [address] Referring Orthopedics 01/16/20 Cecelia Pavon, PT [address] [place] [address] [employer] Counterperson Post Acute Care 01/18/20 Product Marketing Coordinator Relationship Specialty Start Date End Date Alejandra Valle MD [address] [place] [address] PCP - General 08/26/08 Dixie Shin MD [address] [place] [address] Home Care Physician Orthopedics 01/16/20 Dixie Shin MD [address] [place] [address] Referring Orthopedics 01/16/20 Cecelia Pavon, PT [address] [place] [address] [employer] Counterperson Post Acute Care 01/18/20 Product Marketing Coordinator Relationship Specialty Start Date End Date Alejandra Valle MD [address] [place] [address] PCP - General 08/26/08 Dixie Shin MD [address] [place] [address] Home Care Physician Orthopedics 01/16/20 Dixie Shin MD [address] [place] [address] Referring Orthopedics 01/16/20 Cecelia Pavon, PT [address] [place] [address] [employer] Counterperson Post Acute Care 01/18/20 Product Marketing Coordinator Relationship Specialty Start Date End Date Alejandra Valle MD [address] [place] [address] PCP - General 08/26/08 Dixie Shin MD [address] [place] [address] Home Care Physician Orthopedics 01/16/20 Dixie Shin MD [address] [place] [address] Referring Orthopedics 01/16/20 Cecelia Pavon, PT [address] [place] [address] [employer] Counterperson Post Acute Care 01/18/20 Product Marketing Coordinator Relationship Specialty Start Date End Date Alejandra Valle MD [address] [place] [address] PCP - General 08/26/08 Dixie Shin MD [address] [place] [address] Home Care Physician Orthopedics 01/16/20 Dixie Shin MD [address] [place] [address] Referring Orthopedics 01/16/20 Cecelia Pavon, PT [address] [place] [address] [employer] Counterperson Post Acute Care 01/18/20 Product Marketing Coordinator Relationship Specialty Start Date End Date Alejandra Valle MD [address] [place] [address] PCP - General 08/26/08 Dixie Shin MD [address] [place] [address] Home Care Physician Orthopedics 01/16/20 Dixie Shin MD [address] [place] [address] Referring Orthopedics 01/16/20 Cecelia Pavon, PT [address] [place] [address] [employer] Counterperson Post Acute Care 01/18/20 Product Marketing Coordinator Relationship Specialty Start Date End Date Alejandra Valle MD [address] [place] [address] PCP - General 08/26/08 Dixie Shin MD [address] [place] [address] Home Care Physician Orthopedics 01/16/20 Dixie Shin MD [address] [place] [address] Referring Orthopedics 01/16/20 Cecelia Pavon, PT [address] [place] [address] [employer] Counterperson Post Acute Care 01/18/20 Product Marketing Coordinator Relationship Specialty Start Date End Date Alejandra Valle MD [address] [place] [address] PCP - General 08/26/08 Dixie Shin MD [address] [place] [address] Home Care Physician Orthopedics 01/16/20 Dixie Shin MD [address] [place] [address] Referring Orthopedics 01/16/20 Cecelia Pavon, PT [address] [place] [address] [employer] Counterperson Post Acute Care 01/18/20 Product Marketing Coordinator Relationship Specialty Start Date End Date Alejandra Valle MD [address] [place] [address] PCP - General 08/26/08 Dixie Shin MD [address] [place] [address] Home Care Physician Orthopedics 01/16/20 Dixie Shin MD [address] [place] [address] Referring Orthopedics 01/16/20 Cecelia Pavon, PT [address] [place] [address] [employer] Counterperson Post Acute Care 01/18/20 Radha Carrizales RN [address] [place] [address] Medical Claims Manager 10/18/21 Product Marketing Coordinator Relationship Specialty Start Date End Date Alejandra Valle MD [address] [place] [address] PCP - General 08/26/08 Dixie Shin MD [address] [place] [address] Home Care Physician Orthopedics 01/16/20 Dixie Shin MD [address] [place] [address] Referring Orthopedics 01/16/20 Cecelia Pavon, PT [address] [place] [address] [employer] Counterperson Post Acute Care 01/18/20 Radha Carrizales RN [address] [place] [address] Medical Claims Manager 10/18/21 Product Marketing Coordinator Relationship Specialty Start Date End Date Alejandra Valle MD [address] [place] [address] PCP - General 08/26/08 Dixie Shin MD [address] [place] [address] Home Care Provider Orthopedics 01/16/20 Dixie Shin MD [address] [place] [address] Referring Orthopedics 01/16/20 Cecelia Pavon, PT [address] [place] [address] [employer] Counterperson Post Acute Care 01/18/20 Radha Carrizales RN [address] [place] [address] Medical Claims Manager 10/18/21 Product Marketing Coordinator Relationship Specialty Start Date End Date Alejandra Valle MD [address] [place] [address] PCP - General 08/26/08 Dixie Shin MD [address] [place] [address] Home Care Provider Orthopedics 01/16/20 Dixie Shin MD [address] [place] [address] Referring Orthopedics 01/16/20 Cecelia Pavon, PT [address] [place] [address] [employer] Counterperson Post Acute Care 01/18/20 Radha Carrizales RN [address] [place] [address] Medical Claims Manager 10/18/21 Product Marketing Coordinator Relationship Specialty Start Date End Date Alejandra Valle MD [address] [place] [address] PCP - General 08/26/08 Dixie Shin MD [address] [place] [address] Home Care Provider Orthopedics 01/16/20 Dixie Shin MD [address] [place] [address] Referring Orthopedics 01/16/20 Cecelia Pavon, PT [address] [place] [address] [employer] Counterperson Post Acute Care 01/18/20 Radha Carrizales, RN [address] [place] [address] Medical Claims Manager 10/18/21 Product Marketing Coordinator Relationship Specialty Start Date End Date Alejandra Valle MD [address] [place] [address] PCP - General 08/26/08 Dixie Shin MD [address] [place] [address] Home Care Provider Orthopedics 01/16/20 Dixie Shin MD [address] [place] [address] Referring Orthopedics 01/16/20 Cecelia Pavon, PT [address] [place] [address] [employer] Counterperson Post Acute Care 01/18/20 Radha Carrizales, RN [address] [place] [address] Medical Claims Manager 10/18/21 Product Marketing Coordinator Relationship Specialty Start Date End Date Alejandra Valle MD [address] [place] [address] PCP - General 08/26/08 Dixie Shin MD [address] [place] [address] Home Care Provider Orthopedics 01/16/20 Dixie Shin MD [address] [place] [address] Referring Orthopedics 01/16/20 Cecelia Pavon, PT [address] [place] [address] [employer] Counterperson Post Acute Care 01/18/20 Radha Carrizales RN [address] [place] [address] Medical Claims Manager 10/18/21 Product Marketing Coordinator Relationship Specialty Start Date End Date Alejandra Valle MD [address] [place] [address] PCP - General 08/26/08 Dixie Shin MD [address] [place] [address] Home Care Provider Orthopedics 01/16/20 Dixie Shin MD [address] [place] [address] Referring Orthopedics 01/16/20 Cecelia Pavon, PT [address] [place] [address] [employer] Counterperson Post Acute Care 01/18/20 Radha Carrizales, RN [address] [place] [address] Medical Claims Manager 10/18/21 Product Marketing Coordinator Relationship Specialty Start Date End Date Alejandra Valle MD [address] [place] [address] PCP - General 08/26/08 Dixie Shin MD [address] [place] [address] Home Care Provider Orthopedics 01/16/20 Dixie Shin MD [address] [place] [address] Referring Orthopedics 01/16/20 Cecelia Pavon, PT [address] [place] [address] [employer] Counterperson Post Acute Care 01/18/20 Radha Carrizales, DESTINEE [address] [place] [address] Medical Claims Manager 10/18/21 Product Marketing Coordinator Relationship Specialty Start Date End Date Alejandra Valle MD [address] [place] [address] PCP - General 08/26/08 Dixie Shin MD [address] [place] [address] Home Care Provider Orthopedics 01/16/20 Dixie Shin MD [address] [place] [address] Referring Orthopedics 01/16/20 Cecelia Pavon, PT [address] [place] [address] [employer] Counterperson Post Acute Care 01/18/20 Tameka Arriola, citrus fruit colorerMedical Claims Manager 04/27/22 Product Marketing Coordinator Relationship Specialty Start Date End Date Alejandra Valle MD [address] [place] [address] PCP - General 08/26/08 Dixie Shin MD [address] [place] [address] Home Care Provider Orthopedics 01/16/20 Dixie Shin MD [address] [place] [address] Referring Orthopedics 01/16/20 Cecelia Pavon, PT [address] [place] [address] [employer] Counterperson Post Acute Care 01/18/20 Tameka Arriola, citrus fruit colorerMedical Claims Manager 04/27/22 Product Marketing Coordinator Relationship Specialty Start Date End Date Alejandra Valle MD [address] [place] [address] PCP - General 08/26/08 Dixie Shin MD [address] [place] [address] Home Care Provider Orthopedics 01/16/20 Dixie Shin MD [address] [place] [address] Referring Orthopedics 01/16/20 Cecelia Pavon, PT [address] [place] [address] [employer] Counterperson Post Acute Care 01/18/20 Tameka Arriola, citrus fruit colorerMedical Claims Manager 04/27/22 Product Marketing Coordinator Relationship Specialty Start Date End Date Alejandra Valle MD [address] [place] [address] PCP - General 08/26/08 Dixie Shin MD [address] [place] [address] Home Care Provider Orthopedics 01/16/20 Dixie Shin MD [address] [place] [address] Referring Orthopedics 01/16/20 Cecelia Pavon, PT [address] [place] [address] [employer] Counterperson Post Acute Care 01/18/20 Tameka Arriola, citrus fruit colorerMedical Claims Manager 04/27/22 Product Marketing Coordinator Relationship Specialty Start Date End Date Alejandra Valle MD [address] [place] [address] PCP - General 08/26/08 Dixie Shin MD [address] [place] [address] Home Care Provider Orthopedics 01/16/20 Dixie Shin MD [address] [place] [address] Referring Orthopedics 01/16/20 Cecelia Pavon, PT [address] [place] [address] [employer] Counterperson Post Acute Care 01/18/20 Tameka Arriola, citrus fruit colorerMedical Claims Manager 04/27/22 Product Marketing Coordinator Relationship Specialty Start Date End Date Alejandra Valle MD [address] [place] [address] PCP - General 08/26/08 Dixie Shin MD [address] [place] [address] Home Care Provider Orthopedics 01/16/20 Dixie Shin MD [address] [place] [address] Referring Orthopedics 01/16/20 Cecelia Pavon, PT [address] [place] [address] [employer] Counterperson Post Acute Care 01/18/20 Ashley Garcia RN [address] [place] [address] Medical Claims Manager 08/30/22 Product Marketing Coordinator Relationship Specialty Start Date End Date Alejandra Valle MD [address] [place] [address] PCP - General 08/26/08 Dixie Shin MD [address] [place] [address] Home Care Provider Orthopedics 01/16/20 Dixie Shin MD [address] [place] [address] Referring Orthopedics 01/16/20 Cecelia Pavon, PT [address] [place] [address] [employer] Counterperson Post Acute Care 01/18/20 Ashley Garcia RN [address] [place] [address] Medical Claims Manager 08/30/22 Product Marketing Coordinator Relationship Specialty Start Date End Date Alejandra Valle MD [address] [place] [address] PCP - General 08/26/08 Dixie Shin MD [address] [place] [address] Home Care Provider Orthopedics 01/16/20 Dixie Shin MD [address] [place] [address] Referring Orthopedics 01/16/20 Cecelia Pavon, PT [address] [place] [address] [employer] Counterperson Post Acute Care 01/18/20 Ashley Garcia RN [address] [place] [address] Medical Claims Manager 08/30/22 Product Marketing Coordinator Relationship Specialty Start Date End Date Alejandra Valle MD [address] [place], [place] [id number] PCP - General 08/26/08 Dixie Shin MD [address] [place] [address] Home Care Provider Orthopedics 01/16/20 Dixie Shin MD [address] [place] [address] Referring Orthopedics 01/16/20 Cecelia Pavon, PT [address] [place] [address] [employer] Counterperson Post Acute Care 01/18/20 Ashley Garcia RN [address] [place] [address] Medical Claims Manager 08/30/22 Product Marketing Coordinator Relationship Specialty Start Date End Date Alejandra Valle MD [address] [place], [place] [id number] PCP - General 08/26/08 Dixie Shin MD [address] [place] [address] Home Care Provider Orthopedics 01/16/20 Dixie Shin MD [address] [place] [address] Referring Orthopedics 01/16/20 Cecelia Pavon, PT [address] [place] [address] [employer] Counterperson Post Acute Care 01/18/20 Ashley Garcia RN [address] [place] [address] Medical Claims Manager 08/30/22 Product Marketing Coordinator Relationship Specialty Start Date End Date Alejandra Valle MD [address] [place], [place] [id number] PCP - General 08/26/08 Dixie Shin MD [address] [place] [address] Home Care Provider Orthopedics 01/16/20 Dixie Shin MD [address] [place] [address] Referring Orthopedics 01/16/20 Cecelia Pavon, PT [address] [place] [address] [employer] Counterperson Post Acute Care 01/18/20 Ashley Garcia RN [address] [place], [place] [id number] Medical Claims Manager 08/30/22 Product Marketing Coordinator Relationship Specialty Start Date End Date Alejandra Valle MD [address] [place], [place] [id number] PCP - General 08/26/08 Dixie Shin MD [address] [place] [address] Home Care Provider Orthopedics 01/16/20 Dixie Shin MD [address] [place] [address] Referring Orthopedics 01/16/20 Cecelia Pavon, PT [address] [place] [address] [employer] Counterperson Post Acute Care 01/18/20 Ashley Garcia, RN [address] [place] [address] Medical Claims Manager 08/30/22 Product Marketing Coordinator Relationship Specialty Start Date End Date Alejandra Valle MD [address] [place] [address] PCP - General 08/26/08 Dixie Shin MD [address] [place] [address] Home Care Provider Orthopedics 01/16/20 Dixie Shin MD [address] [place] [address] Referring Orthopedics 01/16/20 Cecelia Pavon, PT [address] [place] [address] [employer] Counterperson Post Acute Care 01/18/20 Ashley Garcia, RN [address] [place] [address] Medical Claims Manager 08/30/22 Product Marketing Coordinator Relationship Specialty Start Date End Date Alejandra Valle MD [address] [place] [address] PCP - General 08/26/08 Dixie Shin MD [address] [place] [address] Home Care Provider Orthopedics 01/16/20 Dixie Shin MD [address] [place] [address] Referring Orthopedics 01/16/20 Cecelia Pavon, PT [address] [place] [address] [employer] Counterperson Post Acute Care 01/18/20 Ashley Garcia RN [address] [place] [address] Medical Claims Manager 08/30/22 Product Marketing Coordinator Relationship Specialty Start Date End Date Alejandra Valle MD [address] [place] [address] PCP - General 08/26/08 Dixie Shin MD [address] [place] [address] Home Care Provider Orthopedics 01/16/20 Dixie Shin MD [address] [place] [address] Referring Orthopedics 01/16/20 Cecelia Pavon, PT [address] [place] [address] [employer] Counterperson Post Acute Care 01/18/20 Ashley Garcia RN [address] [place] [address] Medical Claims Manager 08/30/22 Product Marketing Coordinator Relationship Specialty Start Date End Date Alejandra Valle MD [address] [place] [address] PCP - General 08/26/08 Dixie Shin MD [address] [place] [address] Home Care Provider Orthopedics 01/16/20 Dixie Shin MD [address] [place] [address] Referring Orthopedics 01/16/20 Cecelia Pavon, PT [address] [place], [place] [address] [employer] Counterperson Post Acute Care 01/18/20 Tameka Arriola, citrus fruit colorerMedical Claims Manager 04/27/22 08/29/22 Product Marketing Coordinator Relationship Specialty Start Date End Date Alejandra Valle MD [address] [place] [address] PCP - General 08/26/08 Dixie Shin MD [address] [place] [address] Home Care Provider Orthopedics 01/16/20 Dixie Shin MD [address] [place] [address] Referring Orthopedics 01/16/20 Cecelia Pavon, PT [address] [place], [place] [address] [employer] Counterperson Post Acute Care 01/18/20 Ashley Garcia, RN [address] [place] [address] Medical Claims Manager 08/30/22 Product Marketing Coordinator Relationship Specialty Start Date End Date Alejandra Valle MD [address] [place] [address] PCP - General 08/26/08 Dixie Shin MD [address] [place] [address] Home Care Provider Orthopedics 01/16/20 Dixie Shin MD [address] [place] [address] Referring Orthopedics 01/16/20 Cecelia Pavon, PT [address] [place] [address] [employer] Counterperson Post Acute Care 01/18/20 Ashley Garcia RN [address] [place] [address] Medical Claims Manager 08/30/22 Product Marketing Coordinator Relationship Specialty Start Date End Date Alejandra Valle MD [address] [place] [address] PCP - General 08/26/08 Dixie Shin MD [address] [place] [address] Home Care Provider Orthopedics 01/16/20 Dixie Shin MD [address] [place] [address] Referring Orthopedics 01/16/20 Cecelia Pavon, PT [address] [place] [address] [employer] Counterperson Post Acute Care 01/18/20 Ashley Garcia RN [address] [place] [address] Medical Claims Manager 08/30/22 Product Marketing Coordinator Relationship Specialty Start Date End Date Alejandra Valle MD [address] [place] [address] PCP - General 08/26/08 Dixie Shin MD [address] [place] [address] Home Care Provider Orthopedics 01/16/20 Dixie Shin MD [address] [place] [address] Referring Orthopedics 01/16/20 Cecelia Pavon, PT [address] [place] [address] [employer] Counterperson Post Acute Care 01/18/20 Ashley Garcia RN [address] [place] [address] Medical Claims Manager 08/30/22 Product Marketing Coordinator Relationship Specialty Start Date End Date Alejandra Valle MD [address] [place] [address] PCP - General 08/26/08 Ashley Garcia RN [address] [place] [address] Medical Claims Manager 08/30/22 Dixie Shin MD [address] [place] [address] Home Care Provider Orthopedics 04/26/23 Product Marketing Coordinator Relationship Specialty Start Date End Date Alejandra Valle MD [address] [place] [address] PCP - General 08/26/08 Ashley Garcia RN [address] [place] [address] Medical Claims Manager 08/30/22 Dixie Shin MD [address] [place] [address] Home Care Provider Orthopedics 04/26/23 Javier Demarco PA-C [address] [place] [address] Referring Orthopedics 04/27/23 Lisseth Pelletier, PT [address] [place] [address] [employer] Counterperson Post Acute Care 04/27/23 [place] [address] [place] [address] Home Care Provider Orthopedics 04/30/23 Surya Elliott PA-C [address] [place] [address] Referring Orthopedics 04/30/23 Product Marketing Coordinator Relationship Specialty Start Date End Date Alejandra Valle MD [address] [place] [address] PCP - General 08/26/08 Ashley Garcia, DESTINEE [address] [place] [address] Medical Claims Manager 08/30/22 Dixie Shin MD [address] [place] [address] Home Care Provider Orthopedics 04/26/23 Javier Demarco PA-C [address] [place] [address] Referring Orthopedics 04/27/23 Lisseth Pelletier, PT [address] [place] [address] [employer] Counterperson Post Acute Care 04/27/23 [place] [address] [place] [address] Home Care Provider Orthopedics 04/30/23 Surya Elliott PA-C [address] [place] [address] Referring Orthopedics 04/30/23 Product Marketing Coordinator Relationship Specialty Start Date End Date Alejandra Valle MD [facility] [place] [address] PCP - General 08/26/08 Ashley Garcia, DESTINEE [address] [place] [address] Medical Claims Manager 08/30/22 Dixie Shin MD [address] [place], [place] [address] Home Care Provider Orthopedics 04/26/23 Javier Demarco PA-C [address] [place] [address] Referring Orthopedics 04/27/23 Lisseth Pelletier, PT [address] [place] [address] [employer] Counterperson Post Acute Care 04/27/23 [place] [address] [place] [address] Home Care Provider Orthopedics 04/30/23 Surya Elliott PA-C [address] [place] [address] Referring Orthopedics 04/30/23 Product Marketing Coordinator Relationship Specialty Start Date End Date Alejandra Valle MD [address] [place] [address] PCP - General 08/26/08 Ashley Garcia RN [address] [place] [address] Medical Claims Manager 08/30/22 Dixie Shin MD [address] [place] [address] Home Care Provider Orthopedics 04/26/23 Javier Demarco PA-C [address] [place] [address] Referring Orthopedics 04/27/23 Lisseth Pelletier, PT [address] [place] [address] [employer] Counterperson Post Acute Care 04/27/23 [place] [address] [place] [address] Home Care Provider Orthopedics 04/30/23 Surya Elliott PA-C [address] [place] [address] Referring Orthopedics 04/30/23 Product Marketing Coordinator Relationship Specialty Start Date End Date Alejandra Valle MD [address] [place] [address] PCP - General 08/26/08 Ashley Garcia RN [address] [place] [address] Medical Claims Manager 08/30/22 Dixie Shin MD [address] [place] [address] Home Care Provider Orthopedics 04/26/23 Javier Demarco PA-C [address] [place] [address] Referring Orthopedics 04/27/23 Lisseth Pelletier, PT [address] [place] [address] [employer] Counterperson Post Acute Care 04/27/23 [place] [address] [place] [address] Home Care Provider Orthopedics 04/30/23 Surya Elliott PA-C [address] [place], [place] [address] Referring Orthopedics 04/30/23 INFORMATION SOURCE (unrecogn ized [...] BE BASED ON THE PRIMARY CLINICAL RECORDS. [employer] provides no warranty or guarantee of the accuracy or completeness of information in this document.
--- NOTE | 2023-05-04 17:44 | PCM.HP.STD ---
HPI - General General Date of Admission: 05/04/23 Date of Service: 05/04/23 Chief Complaint: Difficulty with mobility HPI Narrative MATEO BEDOYA, is a 78-year-old female with history of hypothyroidism, hypertension, coronary artery disease status post stents, carotid stenosis on the left status post stenting arthritis of the hip status post hip replacement April 26 at [facility] who presented to [facility] 05/04/2023 due to inability to ambulate and care for herself at home. She had hip replacement April 26 at [facility] and was discharged home on the second, return to [place] on April 28 and fell trying to get out of bed and dislocated her hip. She was ultimately transferred back to [facility] due to attempts to reduce the hip. Being unsuccessful. They were able to reduce her hip in the OR [place] in clinic without requiring repeat surgery however since the dislocation she has not been able to adequately get up and ambulate or care for self at home and home physical and occupational therapy both do not feel she is safe at home so patient presents for rehab placement. Discussed with patient, she reports history as above says one of her main problems is getting from laying to sitting, she is concerned for her mobility and her safety. Reports urinating well but has been constipated and has not had a bowel movement since her surgery, denies any other acute complaints. No nausea or vomiting, no swelling in extremities, no abdominal pain. [facility] Medical History Atherosclerosis of coronary artery of nome heart without angina pectoris Benign neoplasm of brain Bicipital tendinitis of left shoulder Bilateral headaches Cerebral meningioma Degenerative joint disease (DJD) of hip Dyslipidemia (high LDL; low HDL) Environmental allergies Essential (primary) hypertension Facet arthropathy, lumbar Herpes zoster Hip dislocation, left Hyperthyroidism Left shoulder pain Obesity Recurrent stenosis of left carotid artery Rotator cuff tendonitis Segmental and somatic dysfunction of lumbar region Segmental and somatic dysfunction of pelvic region Home Medications levothyroxine 137 mcg tablet (Synthroid) 137 mcg PO DAILY thyroid 12/24/17 [History Last Taken 05/04/23] gabapentin 300 mg capsule 600 mg PO BID nerve damage 10/28/19 [History Last Taken Unknown] aspirin 81 mg chewable tablet 325 mg PO DAILY@0800 06/16/21 [History Last Taken Unknown] atorvastatin 80 mg tablet 80 mg PO QHS #90 tabs 06/16/21 [Rx Last Taken Unknown] clopidogrel 75 mg tablet 75 mg PO DAILY #90 tabs 06/16/21 [Rx Last Taken Unknown] hydrochlorothiazide 12.5 mg capsule 12.5 mg PO DAILY #90 caps 06/16/21 [Rx Last Taken Unknown] nitroglycerin 0.4 mg sublingual tablet 0.4 mg sublingual Q5-15M PRN Cardiac/Chest Pain #25 tabs 12/12/21 [Rx Last Taken Unknown] atenolol 100 mg tablet See Rx Instructions .Route .COMPLEX #180 tabs 12/23/21 [Rx Last Taken Unknown] calcium carbonate 200 mg calcium (500 mg) chewable tablet (Tums) 200 mg PO BID 06/06/22 [History Last Taken Unknown] losartan 100 mg tablet 100 mg PO DAILY #90 tabs 02/21/23 [Rx Last Taken Unknown] L.acidophilus-bif.longum 15 mg (1 billion cell)capsule,delayed release (Probiotic Pearls) 1 cap PO DAILY probiotic 05/04/23 [History Last Taken 05/04/23] docusate sodium 100 mg capsule 100 mg PO DAILY stool softener 05/04/23 [History Last Taken 05/04/23] methocarbamol 500 mg tablet 500 mg PO TID muscle pain 05/04/23 [History Last Taken Unknown] oxybutynin chloride 15 mg tablet,extended release 24 hr 15 mg PO DAILY bladder 05/04/23 [History Last Taken Unknown] pantoprazole 20 mg tablet,delayed release 20 mg PO DAILY 05/04/23 [History Last Taken Unknown] Allergy/AdvReac Type Severity Reaction Status Date / Time bee venom protein (honey bee) Allergy Anaphylaxis Verified 05/04/23 14:48 codeine AdvReac Unknown Verified 05/04/23 14:48 icosapent ethyl AdvReac Joint Verified 05/04/23 14:48 [From Vascepa] swelling and pain morphine AdvReac Unknown Verified 05/04/23 14:48 oxycodone [From Percodan] AdvReac Unknown Verified 05/04/23 14:48 Family History Father Heart disease Diabetes Brother Diabetes Mother Cancer Thyroid Arthritis Aunt Arthritis Grandmother Cancer uterine/cervical Other Hypertension Surgical History History of abdominal surgery History of coronary artery stent placement (08/14/18) History of hysterectomy History of left common carotid artery stent placement (07/19/21) History of left-sided carotid endarterectomy (10/21/19) History of partial thyroidectomy History of total hip arthroplasty (12/2019) Hx of cholecystectomy Social History Smoking Status: Never smoker alcohol intake: never substance use type: does not use what type of physical activity do you participate in: none ROS ROS Narrative General: Denies fever/chills HENT: Denies headache, denies stuffy nose, denies sore throat EYES: Denies changes in vision Resp: Denies cough, denies shortness of breath Cardiac: Denies chest pain GI: Denies abdominal pain, has been constipated, denies nausea/vomiting : Denies changes in urination Extremity: Denies swelling MSK: Difficulty going from laying to sitting Neuro: Denies any numbness/tingling Heme: Scattered bruising Skin: Denies rashes Psychiatric: No complaints voiced Vital Signs Vital Signs Vital Signs: 05/04/23 14:48 05/04/23 16:22 Temperature 97.8 F Temperature Source Temporal Pulse Rate 76 Respiratory Rate 18 Respiratory Effort Normal Non-Labored Respiratory Pattern Normal Blood Pressure 134/37 H Blood Pressure Mean 69 Pulse Ox 95 Oxygen Delivery Method Room Air Physical Exam Narrative General: Alert, oriented, no apparent distress HEENT: Atraumatic, normocephalic Eyes: Anicteric, normal conjunctiva, extraocular movements grossly intact Neck: Supple Respiratory: Clear to auscultation bilaterally, normal respiratory effort Cardiovascular: Regular rate and rhythm GI: Soft, nontender, nondistended Extremities: No edema Musculoskeletal: Moving all extremities Neuro: No overt focal neurological deficits Skin: Some scattered bruising Psych: Cooperative Results Lab / Micro Data 05/04/23 16:35 05/04/23 16:35 Labs: Laboratory Results - last 24 hr 05/04/23 16:35: WBC 15.1 H, RBC 3.21 L, Hgb 8.7 L, Hct 28.7 L, MCV 89.4, MCH 27.1, MCHC 30.3 L, RDW Std Deviation 47.4 H, RDW Coeff of Rachel 14.7 H, Plt Count 479 H, MPV 9.5, Neut % (Auto) Not Reportable, Absolute Neuts (auto) 9.2 H, Absolute Lymphs (auto) 4.09, Total Counted 100, Neutrophils % (Manual) 57, Band Neutrophils % 4, Lymphocytes % (Manual) 27, Monocytes % (Manual) 4, Eosinophils % (Manual) 8 H, Diff Path Review July foll, Hypochromasia 2+, Sodium 138, Potassium 4.1, Chloride 102, Carbon Dioxide 33.0 H, Anion Gap 3 L, BUN 18, Creatinine 1.16 H, Est GFR (MDRD) Af Amer 58 L, Est GFR (MDRD) Non-Af 48 L, BUN/Creatinine Ratio 15.5, Glucose 211 H, Calcium 9.0 Assessment & Plan Assessment/Plan (1) Difficulty in walking: (2) Essential (primary) hypertension: (3) History of coronary artery stent placement: (4) Recurrent stenosis of left carotid artery: PLAN: Plan #Weakness/pain and inability to ambulate safely -After hip replacement April 26 and subsequent dislocation with reduction in OR on April 28 -Has been seen by home health PT and OT and has not felt to be safe at home -Patient reports she especially has difficulty going from laying to sitting and with these transitions states, does better when she is up with walker but has high concern for fall and injury given her significant limitations and transitions -Admit with PT/OT consults -Case management and social work consults -Pain control, supportive care #Constipation -Postoperatively -Will check TSH -Will schedule bowel regimen #VAHE vs CKD -Here creatinine 1.16, last in our system however was 2018 and was 0.83 -BUN within normal limits and patient reports she is drinking fairly well -Suspect there may be component of CKD -Will monitor with daily BMP -Hold losartan today, if kidney function stable can likely resume tomorrow #Anemia, unclear chronicity -Hemoglobin 8.7 with previous in our system 11.9 -Unclear what she was postoperatively -Has not complained of any bleeding noted -Will check iron panel, reticulocyte count, B12- -continue patient's antiplatelets and DVT prophylaxis, if further drops can consider further workup and holding 1 or multiple of these medications #Hyperglycemia -Glucose 211 in the ED -Will check A1c -If elevated consider glucose checks and sliding scale insulin #Hypothyroidism -Continue Synthroid # Hypertension -Continue home medications #CAD s/p stents/Carotid stenosis s/p stents -Status post several heart stents, most recent 2017 -Multiple carotid stents as she is in a clinical trial, most recent left carotid stent June 2021 -Heart healthy diet -Continue statin and Plavix and aspirin #GERD -Continue PPI #Overactive bladder -On oxybutynin #DVT ppx: Lovenox subcu Krystle Serrano MD Time spent in the patient's overall evaluation,decision-making process, review of diagnostic data, adjustment of management, discussion with other providers, nursing nursing and ancillary staff involved in patient's care documentation, 57 minutes Charges/Coding Visit Charges Inpatient E&M: 13671 Init Hosp L2
--- OUTSIDE RECORDS SUMMARY | 2023-05-04 18:13 | XMS RPT_ITS | CCD ---
Author Name Unknown Address [address] [place] [address] Organization [facility] Care Team Providers Care Books Salesperson Name Role Phone Alejandra Valle MD Primary Care Provider [phone] Dixie Shin MD Unavailable Dixie Shin MD Unavailable Savanah PT, Laurayalang Unavailable All FELIPE, Radha Andrew Unavailable [phone] Alejandra Valle MD Primary Care Provider Dixie [...] D Attending Unavailable Lien WILKES, Javier Unavailable [phone] Liyah PT, Lisseth Unavailable [phone] Janusz WATTS, Concepcion Unavailable Alea WILKES, Surya Unavailable Allergies Allergy Classification Reported Allergen(s) Allergy Type Date of Onset Reaction(s) Facility (20 sources) Acetaminophen; Translations: [ACETAMINOPHEN] Drug Allergy 5 Intolerance [facility] Work Phone: (20 sources) Aspirin; Translations: [ASPIRIN] Drug Allergy 5 Intolerance [facility] Work Phone: (20 sources) Codeine; Translations: [CODEINE] Drug Allergy 5 GI Upset [facility] Work Phone: (20 sources) Morphine; Translations: [MORPHINE] Drug Allergy 5 Other: See Comments, GI Upset [facility] Work Phone: (20 sources) bee stings and insect bites [Other] Propensity to adverse reactions 6 Swelling [facility] Work Phone: (10 sources) Bee Sting; Translations: [BEE STING] Allergy to substance 4 Anaphylaxis [facility] Work Phone: (9 sources) Acetaminophen / oxyCODONE; Translations: [OXYCODONE-ACETAM INOPHEN] Drug Allergy 4 Other: See Comments [facility] (1 source) OTHER; Translations: [OTHER] Propensity to adverse reactions (disorder) 6 [facility] Medications Current Medications Medication Drug Class(es) Dates Sig (Normalized) Sig (Original) acetaminophen 500 mg oral tablet (8 sources) Start: 05-01-2023 End: 05-08-2023 take 2 [...] Translations: [Dislocation of prosthetic joint, initial encounter ([facility])] Onset: 04-29-2023 Episodic Coronary atherosclerosis and other heart disease (20 sources) Coronary atherosclerosis; Translations: [Atherosclerotic heart disease of [place] coronary artery without angina pectoris] Onset: 01-09-2019 [...] 12-27-2020 Chronic Joint disorders and dislocations; trauma-related (9 sources) Unspecified dislocation of left hip, subsequent [...] 97.5 [degF] Cynthia Hawkinser OT/L Work Phone: [facility] 05-03-2023 14:58-0500 Diastolic blood pressure 68 mm[Hg] Cynthia Abrahamchler OT/L Work Phone: [facility] 05-03-2023 14:58-0500 Heart rate 81 /min Cynthia Abrahamchler OT/L Work Phone: [facility] 05-03-2023 14:58-0500 Respiratory rate 18 /min Cynthia Hawkinser OT/L Work Phone: [facility] 05-03-2023 14:58-0500 SaO2% (BldA) [Mass fraction] 92 % Cynthia Abrahamchler OT/L Work Phone: [facility] 05-03-2023 14:58-0500 Systolic blood pressure 140 mm[Hg] Cynthia Abrahamchler OT/L Work Phone: [facility] 05-03-2023 10:49-0500 Body temperature 97.39 [degF] Lisseth Halderman-Bowling PT Work Phone: [facility] 05-03-2023 10:49-0500 Diastolic blood pressure 78 mm[Hg] Lisseth Halderman-Bowling PT Work Phone: [facility] 05-03-2023 10:49-0500 Heart rate 80 /min Lisseth Halderman-Bowling PT Work Phone: [facility] 05-03-2023 10:49-0500 Respiratory rate 18 /min Lisseth Halderman-Bowling PT Work Phone: [facility] 05-03-2023 10:49-0500 SaO2% (BldA) [Mass fraction] 96 % Lisseth Halderman-Bowling PT Work Phone: [facility] 05-03-2023 10:49-0500 Systolic blood pressure 160 mm[Hg] Lisseth Halderman-Bowling PT Work Phone: [facility] 01-15-2023 12:47-0400 Body weight 98.43 kg Alejandra Valle MD Work Phone: [facility] 01-15-2023 12:47-0400 Diastolic blood pressure 72 mm[Hg] Alejandra Valle MD Work Phone: [facility] 01-15-2023 12:47-0400 Heart rate 72 /min Alejandra Valle MD Work Phone: [facility] 01-15-2023 12:47-0400 Respiratory rate 16 /min Alejandra Valle MD Work Phone: [facility] 01-15-2023 12:47-0400 Systolic blood pressure 128 mm[Hg] Alejandra Valle MD Work Phone: [facility] 10-02-2022 14:49-0400 Body temperature 97.9 [degF] Rizwana Praisler-Wood MAKING MACHINE CATCHER.RADIOPHARMACIST Work Phone: [facility] 10-02-2022 14:49-0400 Body weight 100.25 kg Rizwana Praisler-Wood MAKING MACHINE CATCHER.RADIOPHARMACIST Work Phone: [facility] 10-02-2022 14:49-0400 Diastolic blood pressure 72 mm[Hg] Rizwana Praisler-Wood MAKING MACHINE CATCHER.RADIOPHARMACIST Work Phone: [facility] 10-02-2022 14:49-0400 Heart rate 76 /min Rizwana Praisler-Wood MAKING MACHINE CATCHER.RADIOPHARMACIST Work Phone: [facility] 10-02-2022 14:49-0400 Respiratory rate 16 /min Rizwana Praisler-Wood MAKING MACHINE CATCHER.RADIOPHARMACIST Work Phone: [facility] 10-02-2022 14:49-0400 SaO2% (BldA) [Mass fraction] 96 % Rizwana Praisler-Wood MAKING MACHINE CATCHER.RADIOPHARMACIST Work Phone: [facility] 10-02-2022 14:49-0400 Systolic blood pressure 118 mm[Hg] Rizwana Praisler-Wood MAKING MACHINE CATCHER.RADIOPHARMACIST Work Phone: [facility] 09-11-2022 14:43-0400 Body temperature 97.5 [degF] Rizwana Praisler-Wood MAKING MACHINE CATCHER.RADIOPHARMACIST Work Phone: [facility] 09-11-2022 14:43-0400 Body weight 99.61 kg Rizwana Praisler-Wood MAKING MACHINE CATCHER.RADIOPHARMACIST Work Phone: [facility] 09-11-2022 14:43-0400 Diastolic blood pressure 62 mm[Hg] Rizwana Praisler-Wood MAKING MACHINE CATCHER.RADIOPHARMACIST Work Phone: [facility] 09-11-2022 14:43-0400 Heart rate 72 /min Rizwana Praisler-Wood MAKING MACHINE CATCHER.RADIOPHARMACIST Work Phone: [facility] 09-11-2022 14:43-0400 Respiratory rate 18 /min Rizwana Praisler-Wood MAKING MACHINE CATCHER.RADIOPHARMACIST Work Phone: [facility] 09-11-2022 14:43-0400 SaO2% (BldA) [Mass fraction] 95 % Rizwana Praisler-Wood MAKING MACHINE CATCHER.RADIOPHARMACIST Work Phone: [facility] 09-11-2022 14:43-0400 Systolic blood pressure 116 mm[Hg] Rizwana Praisler-Wood MAKING MACHINE CATCHER.RADIOPHARMACIST Work Phone: [facility] 07-12-2022 14:31-0400 Diastolic blood pressure 62 mm[Hg] Diomedes Riddle MD Work Phone: [facility] 07-12-2022 14:31-0400 Heart rate 71 /min Diomedes Riddle MD Work Phone: [facility] 07-12-2022 14:31-0400 Systolic blood pressure 133 mm[Hg] Diomedes Riddle MD Work Phone: [facility] 01-18-2022 14:36-0400 Diastolic blood pressure 58 mm[Hg] Diomedes Riddle MD Work Phone: [facility] 01-18-2022 14:36-0400 Heart rate 66 /min Diomedes Riddle MD Work Phone: [facility] 01-18-2022 14:36-0400 Systolic blood pressure 124 mm[Hg] Diomedes Riddle MD Work Phone: [facility] 11-25-2021 11:21-0400 Body temperature 97.59 [degF] Pauly Bowman MAKING MACHINE CATCHER.RADIOPHARMACIST Work Phone: [facility] 11-25-2021 11:21-0400 Body weight 97.07 kg Pauly Bowman MAKING MACHINE CATCHER.RADIOPHARMACIST Work Phone: [facility] 11-25-2021 11:21-0400 Diastolic blood pressure 76 mm[Hg] Pauly Reedk MAKING MACHINE CATCHER.RADIOPHARMACIST Work Phone: [facility] 11-25-2021 11:21-0400 Heart rate 69 /min Pauly Colby MAKING MACHINE CATCHER.RADIOPHARMACIST Work Phone: [facility] 11-25-2021 11:21-0400 Respiratory rate 18 /min Pauly Reedk MAKING MACHINE CATCHER.RADIOPHARMACIST Work Phone: [facility] 11-25-2021 11:21-0400 SaO2% (BldA) [Mass fraction] 97 % Paulyanjali Reedk MAKING MACHINE CATCHER.RADIOPHARMACIST Work Phone: [facility] 11-25-2021 11:21-0400 Systolic blood pressure 128 mm[Hg] Pauly Reedk MAKING MACHINE CATCHER.RADIOPHARMACIST Work Phone: [facility] 08-18-2021 09:42-0400 Body temperature 99.3 [degF] Diomedes Riddle MD Work Phone: [facility] 08-18-2021 09:42-0400 Diastolic blood pressure 61 mm[Hg] Diomedes Riddle MD Work Phone: [facility] 08-18-2021 09:42-0400 Heart rate 68 /min Diomedes Riddle MD Work Phone: [facility] 08-18-2021 09:42-0400 Systolic blood pressure 137 mm[Hg] Diomedes Riddle MD Work Phone: [facility] 07-25-2021 09:55-0400 Body weight 95.71 kg Alejandra Valle MD Work Phone: [facility] 07-25-2021 09:55-0400 Diastolic blood pressure 72 mm[Hg] Alejandra Valle MD Work Phone: [facility] 07-25-2021 09:55-0400 Heart rate 74 /min Alejandra Valle MD Work Phone: [facility] 07-25-2021 09:55-0400 Respiratory rate 16 /min Alejandra Valle MD Work Phone: [facility] 07-25-2021 09:55-0400 Systolic blood pressure 126 mm[Hg] Alejandra Valle MD Work Phone: [facility] 07-18-2021 12:12-0400 Body height 170.2 cm Ashleigh Marsh MAKING MACHINE CATCHER.RADIOPHARMACIST Work Phone: [facility] 07-18-2021 12:12-0400 Body temperature 98.4 [degF] Ashleigh Jacober MAKING MACHINE CATCHER.RADIOPHARMACIST Work Phone: [facility] 07-18-2021 12:12-0400 Body weight 94.85 kg Ashleigh Marsh MAKING MACHINE CATCHER.RADIOPHARMACIST Work Phone: [facility] 07-18-2021 12:12-0400 Diastolic blood pressure 62 mm[Hg] Ashleigh Jacober MAKING MACHINE CATCHER.RADIOPHARMACIST Work Phone: [facility] 07-18-2021 12:12-0400 Heart rate 71 /min Ashleigh Marsh MAKING MACHINE CATCHER.RADIOPHARMACIST Work Phone: [facility] 07-18-2021 12:12-0400 Respiratory rate 18 /min Ashleigh Marsh MAKING MACHINE CATCHER.RADIOPHARMACIST Work Phone: [facility] 07-18-2021 12:12-0400 SaO2% (BldA) [Mass fraction] 96 % Ashleigh Marsh MAKING MACHINE CATCHER.RADIOPHARMACIST Work Phone: [facility] 07-18-2021 12:12-0400 Systolic blood pressure 123 mm[Hg] Ashleigh Marsh MAKING MACHINE CATCHER.RADIOPHARMACIST Work Phone: [facility] 07-13-2021 13:10-0400 Body weight 93.12 kg Alejandra Valle MD Work Phone: [facility] 07-13-2021 13:10-0400 Diastolic blood pressure 74 mm[Hg] Alejandra Valle MD Work Phone: [facility] 07-13-2021 13:10-0400 Heart rate 71 /min Alejandra Valle MD Work Phone: [facility] 07-13-2021 13:10-0400 Respiratory rate 16 /min Alejandra Valle MD Work Phone: [facility] 07-13-2021 13:10-0400 Systolic blood pressure 134 mm[Hg] Alejandra Valle MD Work Phone: [facility] Encounters Encounter Date Encounter Type Care Provider Facility Start: 05-04-2023 End: 05-04-2023 Home visit Phyllis SUÁREZ Work Phone: [facility] Procedures Date Procedure Procedure Detail Performing Clinician Start: 04-13-2023 Antibody screen ALEJANDRA PERKINS Plan of Treatment Date Care Activity Detail Author Start: 10-12-2026 Urine microalbumin profile [facility] Start: 04-29-2024 Creatinine measurement Serum Creatinine [facility] Start: 04-27-2024 Complete blood count Hemoglobin/Hematocrit [facility] Start: 04-27-2024 Creatinine measurement Serum Creatinine [facility] Start: 04-13-2024 BP Controlled (<130/80) BP Controlled (<130/80) [facility] Start: 01-16-2024 Annual PCP Team Chronic Disease Visit Annual PCP Team Chronic Disease Visit [facility] Start: 01-16-2024 BP Controlled (<130/80) BP Controlled (<130/80) [facility] Start: 01-13-2024 Creatinine measurement Serum Creatinine [facility] Start: 01-13-2024 Hepatitis B surface antibody level LDL Cholesterol [facility] Start: 01-13-2024 Serum Creatinine Serum Creatinine [facility] Start: 10-12-2023 Hemoglobin A1c measurement HbA1C [facility] Start: 10-03-2023 BP CONTROLLED (<130/80) BP CONTROLLED (<130/80) [facility] Start: 09-12-2023 BP CONTROLLED (<130/80) BP CONTROLLED (<130/80) [facility] Start: 07-17-2023 End: 10-16-2023 ALBUMIN/CREAT RATIO RND UR ALBUMIN/CREAT RATIO RND UR Lab Routine Type 2 diabetes mellitus with stage 3a chronic kidney disease, without long-term current use of insulin (HCC) Expected: 07/17/2023 (Approximate), Expires: 10/16/2023 [facility] Work Phone: Immunizations Immunization Date Immunization Notes Care Provider Laura pederson 11-04-2021 influenza virus vaccine, unspecified formulation Ashley Garcia RN Work Phone: [facility] 08-10-2021 COVID-19 vaccine, booster dose (MODERNA) Mammography Coordinator [facility] 11-08-2020 influenza, high dose seasonal, preservative-free Alejandra Valle MD Work Phone: [facility] 06-16-2020 COVID-19 vaccine, fu ll dose (MODERNA) Alejandra Valle MD Work Phone: [facility] 05-19-2020 COVID-19 vaccine, fu ll dose (MODERNA) Alejandra Valle MD Work Phone: [facility] 11-10-2019 influenza, high dose seasonal, preservative-free Alejandra Valle MD Work Phone: [facility] 12-08-2018 influenza, high dose seasonal, preservative-free Alejandra Valle MD Work Phone: [facility] 12-01-2017 zoster vaccine recombinant Alejandra Valle MD Work Phone: [facility] 11-23-2017 influenza, high dose seasonal, preservative-free Alejandra Valle MD Work Phone: [facility] 11-13-2017 pneumococcal conjuga te vaccine, 13 valent Alejandra Valle MD Work Phone: [facility] 07-20-2017 zoster vaccine recombinant Alejandra Valle MD Work Phone: [facility] 11-20-2016 influenza, high dose seasonal, preservative-free Alejandra Valle MD Work Phone: [facility] 10-12-2016 tetanus and diphther ia toxoids, adsorbed, preservative free, for adult use (5 Lf of tetanus toxoid and 2 Lf of diphtheria toxoid) Alejandra Valle MD Work Phone: [facility] Work Phone: 12-27-2015 pneumococcal polysaccharide vaccine, 23 valent Alejandra Valle MD Work Phone: [facility] 11-18-2015 influenza, high dose seasonal, preservative-free Alejandra Valle MD Work Phone: [facility] 11-10-2014 influenza, high dose seasonal, preservative-free Alejandra Valle MD Work Phone: [facility] 02-20-2014 pneumococcal conjuga te vaccine, 13 valent Alejandra Valle MD Work Phone: [facility] Work Phone: 12-10-2013 influenza, high dose seasonal, preservative-free Alejandra Valle MD Work Phone: [facility] Work Phone: 12-02-2012 influenza virus vaccine, unspecified formulation Alejandra Valle MD Work Phone: [facility] 01-12-2012 zoster vaccine, live Alejandra perkins MD Work Phone: [facility] Work Phone: 12-06-2011 influenza, seasonal, injectable Alejandra Valle MD Work Phone: [facility] 11-23-2010 influenza virus vaccine, unspecified formulation Alejandra Valle MD Work Phone: [facility] Work Phone: 10-10-2010 hepatitis A vaccine, unspecified formulation Alejandra Valle MD Work Phone: [facility] Work Phone: 2010 influenza virus vaccine, unspecified formulation Alejandra Valle MD Work Phone: [facility] 01-08-2009 influenza virus vaccine, unspecified formulation Alejandra Valle MD Work Phone: [facility] 03-22-2007 influenza virus vaccine, unspecified formulation Alejandra Valle MD Work Phone: [facility] Work Phone: 03-22-2007 tetanus toxoid, redu nichole diphtheria toxoid, and acellular pertussis vaccine, adsorbed Alejandra Valle MD Work Phone: [facility] Work Phone: 01-18-2006 influenza virus vaccine, whole virus Alejandra Valle MD Work Phone: [facility] Work Phone: 12-26-2005 pneumococcal polysaccharide vaccine, 23 valent Alejandra Valle MD Work Phone: [facility] Work Phone: 03-27-1997 tetanus and diphther ia toxoids, adsorbed, preservative free, for adult use (2 Lf of tetanus toxoid and 2 Lf of diphtheria toxoid) Alejandra Valle MD Work Phone: [facility] Work Phone: Payers Date Payer Category Payer Medicare [employer] MEDICARE A ETNA MEDICARE PPO [id number] 2021-Present [phone] [address] [place] [address] PPO [id number] 2021 Medicare [id number] 2021 Medicare [id number] Social History Date Type Detail Facility Start: 03-08-2011 End: 01-08-2023 Tobacco smoking status NHIS Never smoked tobacco [facility] Start: 07-13-2021 End: 04-18-2023 Alcohol intake Current drinker of alcohol (finding) [facility] Start: 01-22-2020 End: 09-13-2022 History SDOH Alcohol Frequency 2 [facility] Start: 05-01-2019 History SDOH Alcohol Comment very rarely/ twice per year [facility] Start: 10-22-2019 History SDOH Financial 5 [facility] Start: 10-22-2019 End: 09-13-2022 History SDOH Food Worry 1 [facility] Start: 1945 Sex Assigned At Female [facility] Start: 07-03-2021 End: 01-18-2022 Exposure to SARS-CoV-2 (event) Not sure [facility] Start: 07-05-2021 End: 12-13-2021 Exposure to SARS-CoV-2 (event) Unable to assess [facility] Start: 03-08-2011 End: 01-08-2023 Tobacco use and exposure Smokeless tobacco non-user [facility] Work Phone: Start: 08-31-2022 End: 10-02-2022 History of Social function [facility] Work Phone: Start: 08-31-2022 End: 10-02-2022 Tobacco use panel [facility] Work Phone: Adult Depression Screening Assessment 0 [facility] Work Phone: (I/We) worried wheth er (my/our) food would run out before (I/we) got money to buy more. Never true [facility] Work Phone: Start: 12-10-2018 Gender identity Identifies as female gender (finding) [facility] Start: 12-10-2018 Sexual orientation Heterosexual (finding) [facility] How often to you hav e a drink containing alcohol? Monthly or less [facility] History of tobacco use Passive smoker [facility] Has the [employer], or [employer] threatened to shut off services in your home in past 12Mo No [facility] Do you belong to any clubs or organizations such as temple groups, unions, fraternal or athletic groups, or school groups? Yes [facility] Are you now , , , , never or living with a partner? [facility] How many standard dr inks containing alcohol do you have on a typical day? 1 or 2 [facility] How often do you hav e 6 or more drinks on 1 occasion? Never [facility] Do you feel stress - tense, restless, nervous, or anxious, or unable to sleep at night because your mind is troubled all the time - these days [OSQ] Not at all [facility] Medical Equipment Procedure Code Equipment Code Equipment Origin al Text Equipment Identifier Dates Biolox Delta Mod ular Ceramic Head 36mm W/3mm Neck Type 1 Taper [id number] Start: 01-15-2020 Stem Taperloc 13 3d 7 High Offset Taper Pps 136mm Femoral Type 1 Full - [id number] Start: 01-15-2020 Liner G7 36mm D Neutral Arcomxl Acetabular Hip - [id number] Start: 01-15-2020 Shell G7 50mm D Hemisphere Offset Porous Acetabular Limit Hole Color Coded - [id number] Start: 01-15-2020 Screw G7 6.5mm D ome 20mm Acetabular Low Profile Hip - [id number] Start: 01-15-2020 [id number], [id number] - [id number] Start: 07-19-2021 Biolox Delta Mod ular Ceramic Head 36mm W/3mm Neck Type 1 Taper [id number] Start: 04-26-2023 Shell G7 50mm D Offset Hemisphere [place]seoti Acetabular 3 Hole Limit Hip - [id number] Start: 04-26-2023 Liner Acetabular Size D [id number] Hip Longevity Neutral G7 - [id number] Start: 04-26-2023 Stem Taperloc 13 3d 7 High Offset Full Profile Taper Pps 134mm Femoral Type - [id number] Start: 04-26-2023 Screw G7 6.5mm D ome 20mm Acetabular Low Profile Hip - [id number] Start: 04-26-2023 Goals Date Patient Goal Desired Activity /State Personal health goal Clinical Notes 01-13-2020 to 05-04-2023 CARE COORDINATION - Rae VelezRn), RN - 05/04/2023 10:50 AM [facility] CARE COORDINATION - Phyllis Vega LSW - 05/04/2023 10:15 AM Ashley Wagner RN - 03/01/2023 10:51 AM EST Note Date & Type Note Facility 05-04-2023 Miscellaneous Notes Clarification requested from PT on multivitamin and hydrochlorithiazide documented in this encounter [facility] 05-04-2023 Miscellaneous Notes 05/04/23 9:46 AM UTILITY SALES AND SERVICE MANAGER received a phone call from Lisseth Liyah PT that she went to visit the pt. and the pt. is planning to go to the ER. She does not feel she is able to manage at home. The pt. informed Lisseth that she had to pay a couple of bills and was going to call 911 and go to [facility] ER. documented in this encounter [facility] 05-03-2023 Miscellaneous Notes Spoke with patient. [...] with readmission to hospital. Advised her that INTERVENTIONAL NEURORADIOLOGIST faxed her information per Phyllis URBINA note: 05/03/23 3:44 PM - 3;47 PM UTILITY SALES AND SERVICE MANAGER called the pt. and informed her that UTILITY SALES AND SERVICE MANAGER spoke to Jacki in Admissions with the [facility] [place] and she stated that [employer] will not admit from home for skilled placement. UTILITY SALES AND SERVICE MANAGER informed the pt. that UTILITY SALES AND SERVICE MANAGER spoke to Moon with Trans[facility] Unit in [facility] and she stated that it was hard to get pt. admiited under [employer]. UTILITY SALES AND SERVICE MANAGER stated that she also spoke to Leann with [facility] and she stated to fax information. UTILITY SALES AND SERVICE MANAGER informed the pt. she faxed her information and Therapy notes to [facility] Care Unit in [facility] and to [facility]. The pt. gave the phone to Cynthia Cruz OT to talk with UTILITY SALES AND SERVICE MANAGER regarding her going for skilled placement. UTILITY SALES AND SERVICE MANAGER informed Cynthia on phone calls made and information faxed to Trans[facility] Care Unit in [facility] and [facility]. UTILITY SALES AND SERVICE MANAGER will continue to follow-up. Patient asks what if I feel unsafe at home as if I'm going to fall ? Advised patient to go to ER to be evaluated. Lindy Gonzalez, RN documented in this encounter [facility] 05-03-2023 Miscellaneous Notes 05/03/23 3:35 PM Email from Cynthia Cruz OT that OT Eval completed. 05/03/23 3:39 PM UTILITY SALES AND SERVICE MANAGER Emailed [facility] HIM Release - Helmarilia, the pt. Mateo Bedoya is looking to get admitted into Transitional Care Unit in [facility]. Please fax the pt.'s demographics, history and physical, current med list , PT Eval and OT Eval to attention: Moon in Admissions Fax number [phone]. Thank You, 05/03/23 3:40 PM UTILITY SALES AND SERVICE MANAGER Emailed [facility] HIM Release - Helmarilia, the pt. Mateo Bedoya is looking to get admitted into [facility] . Please fax the OT Eval to attention: [place] Fax number [phone]. Thank You, 05/03/23 3:44 PM - 3;47 PM UTILITY SALES AND SERVICE MANAGER called the pt. and informed her that UTILITY SALES AND SERVICE MANAGER spoke to Jacki in Admissions with the [facility] [place] and she stated that [employer] will not admit from home for skilled placement. UTILITY SALES AND SERVICE MANAGER informed the pt. that UTILITY SALES AND SERVICE MANAGER spoke to Moon with Trans[facility] Care Unit in [facility] and she stated that it was hard to get pt. admiited under [employer]. UTILITY SALES AND SERVICE MANAGER stated that she also spoke to Leann with [facility] and she stated to fax information. UTILITY SALES AND SERVICE MANAGER informed the pt. she faxed her information and Therapy notes to Transitional Care Unit in [facility] and to [facility]. The pt. gave the phone to Cynthia Horschler OT to talk with UTILITY SALES AND SERVICE MANAGER regarding her going for skilled placement. UTILITY SALES AND SERVICE MANAGER informed Cynthia on phone calls made and information faxed to Transitional Care Unit in [facility] and [facility]. UTILITY SALES AND SERVICE MANAGER will continue to follow-up. documented in this encounter [facility] 05-03-2023 Miscellaneous Notes SITUATION: only patient [...] of Knee, Right Coronary Artery Disease Involving [place] Coronary Artery of [place] Heart Carotid Stenosis, Asymptomatic, Bilateral Gerd (Gastroesophageal Reflux Disease) Stage 3a Chronic Kidney Disease ([facility]) Primary Osteoarthritis of Right Hip Oa (Osteoarthritis) of Hip Hypertensive Kidney Disease With Stage 3a Chronic Kidney Disease (Hcc) Type 2 Diabetes Mellitus With Stage 3a Chronic Kidney Disease, Without Long-Term Current Use of Insulin (Hcc) Carotid Stenosis, Left Weight Bearing or Precautions: WBAT Strict posterior hip dislocation precautions; brace L LE ASSESSMENT: Patient evaluated by [facility] occupational therapy. Reviewed and explained [...] for intervention/education details. documented in this encounter [facility] 05-03-2023 Miscellaneous Notes 05/03/23 9:51 AM [...] herself .( I have included our social professionals on this message to assist with facilitating this if you are in agreement ) 05/03/23 10:05 AM - 10:07 AM UTILITY SALES AND SERVICE MANAGER called Lisseth Pelletier PT and she was with the pt. The pt. would like to see if she could get admitted to the Transitional Care Unit in [facility]. UTILITY SALES AND SERVICE MANAGER will call and follow-up. 05/03/23 10:08 AM - 1:11 AM UTILITY SALES AND SERVICE MANAGER called the Transitional Care Unit in [facility] and spoke to Socorro regarding possible placement for the pt. Socorro informed UTILITY SALES AND SERVICE MANAGER that she needed to talk with Admissions and was transferred to Moon Bhandari in Admissions and UTILITY SALES AND SERVICE MANAGER left a message regarding UTILITY SALES AND SERVICE MANAGER was calling regarding a possible placement for the pt. Moon's message stated you can fax referral to Fax number [phone]. documented in this encounter [facility] 05-03-2023 Miscellaneous Notes SITUATION: only patient [...] fell getting out of bed. Taken to [place] [facility] where they were unsuccessful in reducing the dislocation. She was transferred to [facility] where they were again unsuccessful in reducing it in the ER. Pt was taken to the OR where they were able to do a closed reduction She was a late release on 05/01 so they stayed in the [facility] and [facility] came home 05/02. Since that time it [...] of Knee, Right Coronary Artery Disease Involving Marshall Coronary Artery of Marshall Heart Carotid Stenosis, Asymptomatic, Bilateral Gerd (Gastroesophageal [...] Owned: Cane, Walker- Wheeled, Elevated Toilet Seat, Regulatory Product Manager, 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 Abduction pillow while in bed Wound location: L Hip, Wound care: Aquacel to be left on until postop day 7-10 ASSESSMENT: Patient evaluated by [facility] physical therapy. Reviewed and explained [...] for intervention/education details. documented in this encounter [facility] 05-01-2023 Note HNO ID: [id number] Author: VIKTORIYA ARNETT RN Service: Care Management Author Type: Registered Nurse Type: Care Mgt Progress Note Filed: 05/01/2023 12:07 Note Text: CARE MANAGEMENT DISCHARGE NOTE SERVICE DATE: May 01, 2023 SERVICE TIME: 12:01 PM Admission Date: 04/29/2023 LOS: 0 days Discharge Arrangement Services Arranged Provider Name: [facility] Caregiver Assessment Transportation Arrangements Handoff Communication: Additional Information: Patient aware of home care with [facility] CM discussed with patient yesterday SIGNATURE: Viktoriya Arnett RN PATIENT NAME: Mateo Bedoya DATE: May 01, 2023 TIME: 12:00 PM CONTACT #: N/A [facility] 05-01-2023 Note HNO ID: [id number] Author: SURYA ELLIOTT PA-C Service: Orthopaedic Surgery Author Type: Physician Residential Substance Abuse Counselor Type: Plan of Care Filed: 05/01/2023 10:45 [...] Principal Problem: Dislocated hip, left, initial encounter ([facility]) Obesity w/ BMI 30.0 - 34.9 (adult) [...] placed Disposition- Discharge home THIS MORNING with [facility]. Patient and spouse staying at [facility] and will need wheelchair transport there. Plan of care was completed with provider, patient and RN. All questions and concerns regarding the plan were addressed to the satisfaction of all participants. Thank you for the opportunity to participate in this patient's care. Surya Elliott PA-C I Orthopedic Surgery [facility] [place] [phone] For [facility] [place] floor related issues or questions Sunday[place] [phone] At all other times, or if urgent, please page the orthopaedic on-call resident at: [phone] ([phone]) for [facility] [place] patients [facility] 05-01-2023 Note HNO ID: [id number] Author: ?, ?, ? Service: Care Management Author Type: ? Type: Care Mgt Progress Note Filed: 05/01/2023 10:28 Note Text: CARE MANAGEMENT PROGRESS NOTE SERVICE DATE: 05/01/2023 SERVICE TIME: 10:28 AM LOS: 0 days IMM Follow Up Copy Given: Yes Copy given to:: Patient Health Officer Health Officer Name/Relationship: , Jared Method: In Person SIGNATURE: Alexandra Arreola PATIENT NAME: Mateo Bedoya DATE: May 01, 2023 TIME: 10:28 AM PAGER/CONTACT #: [phone] [facility] 05-01-2023 Note HNO ID: [id number] Author: JOHNNY GONZALEZ MD Service: Orthopaedic Surgery Author Type: Resident Type: Progress Notes Filed: 05/01/2023 06:18 Note Text: Inpatient Progress Note Orthopaedic Surgery If Urgent AND unable to reach [id number] OR If 5p-7a/Wknd: p2BONE Assessment 78 year [...] PGY-3 Resident Orthopaedic Surgery Please page 2BONE ([phone]) from 5p-6a and on weekends for any issues. [facility] 04-30-2023 Note HNO ID: [id number] Author: VIKTORIYA ARNETT RN Service: Care Management Author Type: Registered Nurse Type: Care Mgt Initial Assessment Filed: 04/30/2023 13:56 Note Text: CARE MANAGEMENT: ASSESSMENT AND DISCHARGE PLAN SERVICE DATE: April 30, 2023 SERVICE TIME: 12:15 PM PCP: Alejandra Valle MD Primary Contact: Extended Emergency Contact Information Primary Emergency Contact: Jared Bedoya Address: [address] [place] [address] [facility] Mobile Relation: Spouse Secondary Emergency Contact: Jared Bedoya III Address: [address] [place] [address] [address] [place], [place] [id number] [place] [address] Mobile Relation: Son Admission Status: Observation Insurance Provider: [employer] P[employer] Discharge Planning requested by: Potential Transition Plans Advance Directives Current Living Arrangements and Support Lives with: Type of Residence: Support: Current Services/Equipment Discharge Planning Patient Goal(s): [place] [facility] Explained: Are you interested in bedside delivery of your medications? No Discharge Planning Participant(s): Patient/Family Comments: Caregiver Assessment: Transport at Discharge: Spouse will provide transportation. Needs Prior to Discharge: Post-Acute Discharge Plan: Home PT with [facility] CM met patient discussed that she does not meet criteria for AR, received denial by Nava MEEHAN. SIGNATURE: Viktoriya Arnett RN PATIENT NAME: Mateo Bedoya DATE: April 30, 2023 TIME: 1:53 PM CONTACT #: N/A [facility] 04-30-2023 Note HNO ID: [id number] Author: SURYA ELLIOTT PA-C Service: Orthopaedic Surgery Author Type: Physician Residential Substance Abuse Counselor Type: Plan of Care Filed: 04/30/2023 14:44 [...] anticipation that she will discharge home with [facility]. AR was not recommended nor approved. Patient immediately fell back asleep. Patient has many steps to navigate at home and was able to stay on second floor for 2 weeks after her original Right JOE. Patient without additional concerns at this time. Most recent labs, I/Os, VS, and notes reviewed for this visit. Principal Problem: Dislocated hip, left, initial encounter ([facility]) Obesity w/ BMI 30.0 - 34.9 (adult) [...] pending Disposition- Anticipated discharge home TOMORROW with [facility] pending final therapy Plan of care was completed with provider, patient and RN. All questions and concerns regarding the plan were addressed to the satisfaction of all participants. Thank you for the opportunity to participate in this patient's care. Surya Elliott PA-C I Orthopedic Surgery [facility] [place] [phone] For [facility] [place] floor related issues or questions Sunday[place] [phone] At all other times, or if urgent, please page the orthopaedic on-call resident at: [phone]) for Main [place] patients [facility] 04-30-2023 Note HNO ID: [id number] Author: JOHNNY GONZALEZ MD Service: Orthopaedic Surgery Author Type: Resident Type: Progress Notes Filed: 04/30/2023 06:27 Note Text: Inpatient Progress Note Orthopaedic Surgery If Urgent AND unable to reach [phone] OR If 5p-7a/Wknd: p2BONE Assessment 78 year [...] PGY-3 Resident Orthopaedic Surgery Please page 2BONE [phone]) from 5p-6a and on weekends for any issues. [facility] 04-29-2023 Note HNO ID: [id number] Author: JORGE ALBERTO SUTHERLAND MD Service: ? Author Type: Anesthesiologist Type: Anesthesia Procedure Notes Filed: 04/29/2023 17:42 Note Text: ANESTHESIOLOGY PROCEDURE NOTE Airway General Information Procedure Start Time/Medication Administration: 04/29/2023 5:36 PM Patient location during procedure: OR Patient identity confirmed: arm band Staffing RESPIRATORY DIRECTOR: Ara Byrne APRN.RESPIRATORY DIRECTOR Performed by: RESPIRATORY DIRECTOR Indications and Patient Condition Indications for airway [...] April 29, 2023 TIME: 5:41 PM CSN: [id number] [facility] 04-29-2023 Note HNO ID: [id number] Author: ULISSES RODRIGUEZ RT(R) Service: ? Author Type: Technologist Type: Progress Notes Filed: 04/29/2023 16:11 Note Text: xray: chest [facility] 04-27-2023 Note HNO ID: [id number] Author: JAVIER DEMARCO PA-C Service: Orthopaedic Surgery Author Type: Physician Residential Substance Abuse Counselor Type: Plan of Care Filed: 04/27/2023 14:12 [...] 30 days) POA: Yes Javier Demarco PA-C [facility] 04-27-2023 Note HNO ID: [id number] Author: JOHNNY GONZALEZ MD Service: Orthopaedic Surgery Author Type: Resident Type: Progress Notes Filed: 04/27/2023 06:10 Note Text: Inpatient Progress Note Orthopaedic Surgery If Urgent AND unable to reach [phone] OR If 5p-7a/Wknd: p2BONE Assessment 78 year [...] PGY-3 Resident Orthopaedic Surgery Please page 2BONE [phone]) from 5p-6a and on weekends for any issues. [facility] 04-26-2023 Note HNO ID: [id number] Author: GRICEL LOO RN Service: ? Author Type: Registered Nurse Type: Progress Notes Filed: 04/26/2023 20:21 Note Text: At 14:10 PM, Called DESTINEE Lozoya, @ #[phone], in PACU, and received report. At 14:43 PM, Patient admitted to the nursing division. [facility] 04-26-2023 Miscellaneous Notes Hello there! (Spoke with: Jared, spouse ) My name is LAVON Agudelo and I'm calling from [facility]. Your doctor wants to [...] your transition home smooth. A therapist (marcos one- nurse or therapist ) will visit [...] address will we be seeing you at? [address] [place] [id number] Do you have any upcoming appointments or things we need to schedule around? Unsure When they call or text, the number might be unfamiliar or blocked. If they leave a message, please reply so we can plan your visit. Homecare helps with your recovery. During the first visit, the therapist (marcos one- nurse or therapist) will talk with [...] 04/26/2023 3:31 PM documented in this encounter [facility] 04-26-2023 Note HNO ID: [id number] Author: RISSA ALMEIDA SRNA Service: ? Author [...] April 26, 2023 TIME: 8:05 AM CSN: [id number] [facility] 04-26-2023 Note HNO ID: [id number] Author: RISSA ALMEIDA SRNA Service: ? 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, patient and care promotions team leader Staffing Anesthesiologist: Kami Anna MD SRNA: Rissa Almeida SRNA Performed by: NICKO Indications and Patient Condition Indications for airway management: anesthesia Preoxygenated: yes anesthesia circuit Patient position: sniffing Method: asleep Final Airway Details Final airway type: endotracheal airway Final Endotracheal Airway: ETT Cuffed: yes Successful intubation technique: video laryngoscopy Devices used: Vidmaker Endotracheal tube insertion site: oral Blade size: #3 ETT size (mm): 7.0 Measured from: lips Measurement (cm): 21 Placement verified by: capnometry Cormack-Lehane Classification: grade I - full view of glottis Number of attempts at approach: 1 Failed airway: no Unrecognized esophageal intubation: no Airway not difficult SIGNATURE: NICKO Grewal PATIENT NAME: Mateo Bedoya DATE: April 26, 2023 TIME: 8:02 AM CSN: [id number] [facility] 04-05-2023 Note HNO ID: [id number] Author: ASHLEY GARCIA RN Service: ? Author [...] daily weight at home? No Based on medical coordinator pesticide use, the following disposition is advised: No symptoms or symptoms present, not severe. Routed to: No Action Needed RUTHIE Education Provided this Outreach: No Mrs. Bedoya is preparing for her left hip replacement on 04/26/23. Prepping and freezing meals, getting paperwork in order. No questions or concerns at this time. Ashley Garcia RN April 05, 2023 3:18 PM [facility] 04-05-2023 Note Patient Outreach ([facility]) MATEO BEDOYA V ([id number]) 1945 F Date Time Provider Department 04/05/23 ASHLEY GARCIA During your visit today, we recorded the following information about you: Ashley Garcia RN 04/05/2023 3:19 PM Signed CD Telephonic Outreach Provider Action/FYI N/A [...] daily weight at home? No Based on medical coordinator pesticide use, the following disposition is advised: No symptoms [...] as of 01/12/2022: Changed all Rx's to [facility]. 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] 05/10/2004 Essential hypertension, benign [I10] 12/16/2005 Elevated glucose [R73.09] 05/24/2012 Hypothyroidism [E03.9] 05/24/2012 Hyperlipidemia, mixed [E78.2] 05/24/2012 Female stress incontinence [N39.3] 08/23/2012 Acute medial meniscus tear of right knee [S83.2*10/23/2013 12/27/2020 Arthritis of knee, right [M17.11] 07/09/2014 Coronary artery disease involving coe[place]'alene clay*01/09/2019 Carotid stenosis, asymptomatic, bilateral [I65.*10/02/2019 Carotid [...] Encounter Status:Closed by ASHLEY GARCIA on 04/05/23 [facility] 04-04-2023 Note HNO ID: [id number] Author: ASHLEY GARCIA, RN Service: ? Author Type: Registered Nurse Type: Progress Notes Filed: 04/04/2023 15:10 Note Text: CDM Telephonic Outreach Provider Action/FYI N/A Contacted for: Routine Telephonic Outreach Contact made with patient: Yes Patient identified by name and date of . Discussed care with patient-she is unable to talk right now. Requests call back tomorrow. [facility] 04-04-2023 Note Patient Outreach (AM [facility]) MATEO BEDOYA V ([id number]) 1945 F Date Time Provider Department 04/04/23 ASHLEY GARCIA During your visit today, we recorded the following information about you: Ashley Garcia, DESTINEE 04/04/2023 3:10 PM Signed CDM Telephonic Outreach [...] as of 01/12/2022: Changed all Rx's to [facility]. 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] 05/10/2004 Essential hypertension, benign [I10] 12/16/2005 Elevated glucose [R73.09] 05/24/2012 Hypothyroidism [E03.9] 05/24/2012 Hyperlipidemia, mixed [E78.2] 05/24/2012 Female stress incontinence [N39.3] 08/23/2012 Acute medial meniscus tear of right knee [S83.2*10/23/2013 12/27/2020 Arthritis of knee, right [M17.11] 07/09/2014 Coronary artery disease involving coe[place] d'alene clay*01/09/2019 Carotid stenosis, asymptomatic, bilateral [I65.*10/02/2019 Carotid [...] Encounter Status:Closed by ASHLEY GARCIA on 04/04/23 [facility] 03-12-2023 Miscellaneous Notes The following approved medication requests have been transmitted electronically. Requested Prescriptions Pending Prescriptions Disp Refills atorvastatin (LIPITOR) 80 mg tablet 90 tablet 3 Sig: Take 1 tablet by mouth once daily. Umesh Liz APRN.RADIOPHARMACIST Patient has been identified by name and [...] Betty Onofre LPN. documented in this encounter [facility] 03-01-2023 Note Patient Outreach (AM [facility]) MATEO BEDOYA V ([id number]) 1945 F Date Time Provider Department 03/01/23 ASHLEY GARCIA AM[facility] During your visit today, [...] but is friends with the head of [facility] counseling and also with the head of [facility]. She states can reach out to them if she feels grief counseling is needed. States she is having a left hip replacement with Dr. Shin on 04/26/23. Based on medical coordinator pesticide use, the following disposition is advised: No symptoms [...] as of 01/12/2022: Changed all Rx's to [facility]. 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] 05/10/2004 Essential hypertension, benign [I10] 12/16/2005 Elevated glucose [R73.09] 05/24/2012 Hypothyroidism [E03.9] 05/24/2012 Hyperlipidemia, mixed [E78.2] 05/24/2012 Female stress incontinence [N39.3] 08/23/2012 Acute medial meniscus tear of right knee [S83.2*10/23/2013 12/27/2020 Arthritis of knee, right [M17.11] 07/09/2014 Coronary artery disease involving coe[place] d'alene clay*01/09/2019 Carotid stenosis, asymptomatic, bilateral [I65.*10/02/2019 Carotid artery stenosis [I65.29] 10/21/2019 07/11/2021 Post-operative state [Z98.890] 10/22/2019 12/27/2020 GERD (gastroesophageal reflux disease) [K21.9] 01/13/2020 Prediabetes [R73.03] 01/13/2020 07/11/2021 Class 1 obesity due to excess calories with bod*01/13/2020 07/11/2021 Stage 3a chronic kidney disease [N18.31] 01/13/2020 Primary osteoarthritis of right h (more content not included)... [facility] 03-01-2023 Note HNO ID: [id number] Author: Ashley Garcia RN Service: ? Author [...] but is friends with the head of [facility] and also with the head of [facility]. She states can reach out to them if she feels grief counseling is needed. States she is having a left hip replacement with Dr. Shin on 04/26/23. Based on medical coordinator pesticide use, the following disposition is advised: No symptoms or symptoms present, not severe. Routed to: No Action Needed RUTHIE Education Provided this Outreach: No Ashley Garcia RN March 01, 2023 11:25 AM [facility] 03-01-2023 History of Present illness Narrative [facility] Telephonic Outreach Provider Action/FYI N/A [...] but is friends with the head of [facility] and also with the head of [facility]. She states can reach out to them if she feels grief counseling is needed. States she is having a left hip replacement with Dr. Shin on 04/26/23. Based on medical coordinator pesticide use, the following disposition is advised: No symptoms or symptoms present, not severe. Routed to: No Action Needed RUTHIE Education Provided this Outreach: Eugenia Garcia RN March 01, 2023 11:25 AM documented in this encounter [facility] 02-28-2023 Miscellaneous Notes The following approved [...] Lindsay Irwin RN. documented in this encounter [facility] 02-21-2023 Miscellaneous Notes Patient notified to call [facility] heart group since they manage medication [facility] verified in [facility] Patient has been identified by name and [...] advise. Jamee Okeefe documented in this encounter [facility] 02-05-2023 Miscellaneous Notes Call to pt and notified her of message below from Provider. Pt's son was in [place] in [employer] meetings. Spoke with his brother and the night prior. 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 Uses [facility]. Please call patient with update. Thank you. documented in this encounter [facility] 02-01-2023 Note HNO ID: [id number] Author: Ashley Garcia RN Service: ? Author [...] out again to patient in 3-4 weeks. [facility] 02-01-2023 History of Present illness Narrative CDM Telephonic [...] in 3-4 weeks. documented in this encounter [facility] 02-01-2023 Note Patient Outreach (AM [facility]) MATEO BEDOYA V ([id number]) 1945 F Date Time Provider Department 02/01/23 ASHLEY GARCIA [facility] During your visit today, we recorded the following information about you: Ashley Garcia RN 02/01/2023 2:52 PM Signed CDM Telephonic Outreach Provider Action/TAAY N/A Contacted for: Routine Telephonic Outreach Contact [...] as of 01/12/2022: Changed all Rx's to [facility]. 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] 05/10/2004 Essential hypertension, benign [I10] 12/16/2005 Elevated glucose [R73.09] 05/24/2012 Hypothyroidism [E03.9] 05/24/2012 Hyperlipidemia, mixed [E78.2] 05/24/2012 Female stress incontinence [N39.3] 08/23/2012 Acute medial meniscus tear of right knee [S83.2*10/23/2013 12/27/2020 Arthritis of knee, right [M17.11] 07/09/2014 Coronary artery disease involving coe[place] d'alene clay*01/09/2019 Carotid stenosis, asymptomatic, bilateral [I65.*10/02/2019 Carotid [...] Encounter Status:Closed by ASHLEY GARCIA on 02/01/23 [facility] 01-31-2023 Note Patient Outreach (AM [facility]) MATEO BEDOYA V ([id number]) 1945 F Date Time Provider Department 01/31/23 ASHLEY GARCIA [facility] During your visit today, we recorded the following information about you: Ashley Garcia RN 01/31/2023 12:04 PM Signed [facility] Telephonic Outreach Provider Action/FYI N/A [...] as of 01/12/2022: Changed all Rx's to [facility]. 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] 05/10/2004 Essential hypertension, benign [I10] 12/16/2005 Elevated glucose [R73.09] 05/24/2012 Hypothyroidism [E03.9] 05/24/2012 Hyperlipidemia, mixed [E78.2] 05/24/2012 Female stress incontinence [N39.3] 08/23/2012 Acute medial meniscus tear of right knee [S83.2*10/23/2013 12/27/2020 Arthritis of knee, right [M17.11] 07/09/2014 Coronary artery disease involving coeur d'alene clay*01/09/2019 Carotid stenosis, asymptomatic, bilateral [I65.*10/02/2019 Carotid [...] Encounter Status:Closed by ASHLEY GARCIA on 01/31/23 [facility] 01-31-2023 Note HNO ID: [id number] Author: Ashley Garcia RN Service: ? Author Type: Registered Nurse Type: Progress Notes Filed: 01/31/2023 12:04 PM Note Text: [facility] Telephonic Outreach Provider Action/FYI N/A Contacted for: Routine Telephonic Outreach Pt requests q 2 month outreach calls. Contact made with patient: No, left message. Ashley Garcia RN January 31, 2023 12:03 PM [facility] 01-31-2023 History of Present illness Narrative [facility] Telephonic Outreach Provider Action/FYI N/A Contacted for: Routine Telephonic Outreach Pt requests q 2 month outreach calls. Contact made with patient: No, left message. Ashley Garcia RN January 31, 2023 12:03 PM documented in this encounter [facility] 01-15-2023 Note HNO ID: [id number] Author: Alejandra Valle MD Service: ? Author [...] with Ditropan xl 10 mg daily by [employer] Dr. Kent. Thyroid: Stable on current regimen of Synthroid 137 mcg daily. No missed dosages. DM: Does not check BS at home, no hypoglycemic episodes or neuropathy sx. Not taking any diabetic medications, tries to control with lifestyle. Does watch sugar, but does plan on cutting chocolate out of her diet more. Following with [facility] [place] [facility]. CAD/Lipid: Follows with Cardio at [facility] Dr. Riddle. Is [...] OR EXPOSED ROOT (ELEVATION AND/OR FORCEPS REMOVAL) [place] teeth LAPAROSCOPY SURG CHOLECYSTECTOMY 90s Cholecystectomy, lap OOPHORECTOMY PARTIAL/TOTAL UNI/BI 80s Oophorectomy PAST SURGICAL HISTORY OF 80s 10 surgeries 14 abd tumors, all benign PAST SURGICAL HISTORY OF 12/16/2015 Dr. Reinoso, skin lesion removed PAST SURGICAL HISTORY OF Right 07/04/2016 right breast needle biopsy, benign - Dr. Reinoso PAST SURGICAL HISTORY OF N/A 05/23/2018 4 stents placed by [facility] PAST SURGICAL HISTORY OF N/A 08/14/2018 5th stent placed by [facility] PAST SURGICAL HISTORY OF Right [...] mouth once daily (more content not included)... [facility] 01-15-2023 History of Present illness Narrative [...] with Ditropan xl 10 mg daily by [employer] Dr. Kent. Thyroid: Stable on current regimen of Synthroid 137 mcg daily. No missed dosages. DM: Does not check BS at home, no hypoglycemic episodes or neuropathy sx. Not taking any diabetic medications, tries to control with lifestyle. Does watch sugar, but does plan on cutting chocolate out of her diet more. Following with [facility] for DM eye exams. CAD/Lipid: Follows with Cardio at [facility] Dr. Riddle. Is [...] OR EXPOSED ROOT (ELEVATION AND/OR FORCEPS REMOVAL) [place] teeth LAPAROSCOPY SURG CHOLECYSTECTOMY 90s Cholecystectomy, lap OOPHORECTOMY PARTIAL/TOTAL UNI/BI 80s Oophorectomy PAST SURGICAL HISTORY OF 80s 10 surgeries 14 abd tumors, all benign PAST SURGICAL HISTORY OF 12/16/2015 Dr. Reinoso, skin lesion removed PAST SURGICAL HISTORY OF Right 07/04/2016 right breast needle biopsy, benign - Dr. eRinoso PAST SURGICAL HISTORY OF N/A 05/23/2018 4 stents placed by [facility] PAST SURGICAL HISTORY OF N/A 08/14/2018 5th stent placed by [facility] PAST SURGICAL HISTORY OF Right [...] medication regimen. 7. Coronary artery disease involving coe[place]'alene coronary artery of coe[place] heart, unspecified whether angina present - ICD9: [...] Past Histories independently gathered by the clinical administrative support specialist and the remaining scribed note [...] Lindsey Martinez Ma documented in this encounter [facility] 01-08-2023 Note HNO ID: [id number] Author: Dixie Shin MD Service: ? Author [...] of Knee, Right Coronary Artery Disease Involving Marshall Coronary Artery of Marshall Heart Carotid Stenosis, Asymptomatic, Bilateral Gerd (Gastroesophageal [...] 08/31/22 : 3 (more content not included)... [facility] 01-08-2023 Note HNO ID: [id number] Author: Lucrecia Chandler RT(José Miguel) Service: ? Author Type: Technologist Type: [...] RT Jonathan(R) January 08, 2023 8:35 AM [facility] 01-08-2023 History of Present illness Narrative [...] of Knee, Right Coronary Artery Disease Involving Marshall Coronary Artery of Marshall Heart Carotid Stenosis, Asymptomatic, Bilateral Gerd (Gastroesophageal [...] Assessment and Plan. documented in this encounter [facility] 01-08-2023 History of Present illness [...] 2023 8:35 AM documented in this encounter [facility] 01-04-2023 Note HNO ID: [id number] Author: Ashley Garcia RN Service: ? Author [...] Garcia RN January 04, 2023 1:59 PM [facility] 01-04-2023 Note Patient Outreach (AM [facility]) MATEO BEDOYA V ([id number]) 1945 F Date Time Provider Department 01/04/23 ASHLEY GARCIA [facility] During your visit today, [...] as of 01/12/2022: Changed all Rx's to [facility] Pharm[facility]. 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] 05/10/2004 Essential hypertension, benign [I10] 12/16/2005 Elevated glucose [R73.09] 05/24/2012 Hypothyroidism [E03.9] 05/24/2012 Hyperlipidemia, mixed [E78.2] 05/24/2012 Female stress incontinence [N39.3] 08/23/2012 Acute medial meniscus tear of right knee [S83.2*10/23/2013 12/27/2020 Arthritis of knee, right [M17.11] 07/09/2014 Coronary artery disease involving coe[place]'alene clay*01/09/2019 Carotid stenosis, asymptomatic, bilateral [I65.*10/02/2019 Carotid [...] Encounter Status:Closed by ASHLEY GARCIA on 01/04/23 [facility] 01-04-2023 History of Present illness Narrative Care Coordination Deferred Outreach Provider Action / FYI: N/A Deferred outreach to patient at this time due to: Chart Review Only Last outreach 12/06/22. Pt now requesting q 2 month outreaches. Did not contact patient today. Next Outreach date: 02/01/23 Ashley Garcia RN January 04, 2023 1:59 PM documented in this encounter [facility] 01-01-2023 Miscellaneous Notes The following approved medication requests have been transmitted electronically. Requested Prescriptions Pending Prescriptions Disp Refills gabapentin (NEURONTIN) 300 mg capsule 360 capsule 1 Sig: Take 2 capsules by mouth two times a day for 180 days. Umesh Liz APRN.RADIOPHARMACIST CELINA 07/14/22 NOV 01/15/23 Please review and advise. Thank you. MARA Escobar Patient has been identified by name and date of : Yes Requested Prescriptions Pending Prescriptions Disp Refills gabapentin (NEURONTIN) 300 mg capsule 360 capsule 1 Sig: Take 2 capsules by mouth two times a day for 180 days. RX INSTRUCTIONS: Patient aware RX will be sent to [facility] pharmacy. No need to notify patient. Grace Ordoñez documented in this encounter [facility] 12-06-2022 Note Patient Outreach (AM [facility]) MATEO BEDOYA V ([id number]) 1945 F Date Time Provider Department 12/06/22 ASHLEY GARCIA During your visit today, we recorded the following information about you: Ashley Garcia RN 12/06/2022 10:11 AM Signed [facility] Telephonic Outreach Provider Action/TAYA N/A Contacted for: Routine Telephonic Outreach Contact made with patient: No, left message on mobile number. Ashley Garcia RN December 06, 2022 10:10 AM Ashley Garcia RN 12/06/2022 10:19 AM Signed [facility] Telephonic Outreach Provider Sapna/TAYA N/A [...] daily weight at home? No Based on medical coordinator pesticide use, the following disposition is advised: No symptoms or symptoms present, not severe. Routed to: No Action Needed RUTHIE Education Provided this Outreach: No Upcoming appointments reviewed: Appointments for Next 60 Days Date Time Provider Location Dept Phone 01/08/2023 9:30 AM DIXIE SHIN [facility] [phone] 01/15/2023 1:00 PM ALEJANDRA VALLE [facility] [phone] Ashley Gacria RN December 06, 2022 10:16 AM Allergies [...] as of 01/12/2022: Changed all Rx's to [facility] Pharmacy. 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] 05/10/2004 Essential hypertension, benign [I10] 12/16/2005 Elevated glucose [R73.09] 05/24/2012 Hypothyroidism [E03.9] 05/24/2012 Hyperlipidemia, mixed [E78.2] 05/24/2012 Female stress incontinence [N39.3] 08/23/2012 Acute medial meniscus tear of right knee [S83.2*10/23/2013 12/27/2020 Arthritis of knee, right [M17.11] 07/09/2014 Coronary artery disease involving [place] clay*01/09/2019 Carotid stenosis, asymptomatic, bilateral [I65.*10/02/2019 Carotid [...] Encounter Status:Closed by ASHLEY GARCIA on 12/06/22 [facility] 12-06-2022 Note HNO ID: [id number] Author: Ashley Garcia RN Service: ? Author [...] daily weight at home? No Based on medical coordinator pesticide use, the following disposition is advised: No symptoms or symptoms present, not severe. Routed to: No Action Needed RUTHIE Education Provided this Outreach: No Upcoming appointments reviewed: Appointments for Next 60 Days Date Time Provider Location Dept Phone 01/08/2023 9:30 AM DIXIE SHIN [facility] [phone] 01/15/2023 1:00 PM ALEJANDRA VALLE [facility] [phone] Ashley Garcia RN December 06, 2022 10:16 AM [facility] 12-06-2022 Note HNO ID: [id number] Author: Ashley Garcia RN Service: ? Author Type: Registered Nurse Type: Progress Notes Filed: 12/06/2022 10:11 AM Note Text: [facility] Telephonic Outreach Provider Action/FYI N/A Contacted for: Routine Telephonic Outreach Contact made with patient: No, left message on mobile number. Ashley Garcia RN December 06, 2022 10:10 AM [facility] 12-06-2022 History of Present illness Narrative [facility] Telephonic Outreach Provider Action/FYI N/A [...] daily weight at home? No Based on medical coordinator pesticide use, the following disposition is advised: No symptoms or symptoms present, not severe. Routed to: No Action Needed RUTHIE Education Provided this Outreach: No Upcoming appointments reviewed: Appointments for Next 60 Days Date Time Provider Location Dept Phone 01/08/2023 9:30 AM DIXIE SHIN [facility] [phone] 01/15/2023 1:00 PM ALEJANDRA VALLE [facility] [phone] Ashley Garcia RN December 06, 2022 10:16 AM [facility] Telephonic Outreach Provider Action/TAYA N/A Contacted for: Routine Telephonic Outreach Contact made with patient: No, left message on mobile number. Ashley Garcia RN December 06, 2022 10:10 AM documented in this encounter [facility] 11-20-2022 Miscellaneous Notes OK to refill as ordered Alejandra Valle MD Pharmacy verified in [facility] Patient has been identified by name and [...] advise. Jamee Okeefe documented in this encounter [facility] 11-08-2022 Note HNO ID: [id number] Author: Ashley Garcia RN Service: ? Author Type: Registered Nurse Type: Progress Notes Filed: 11/08/2022 1:18 PM Note Text: [facility] Telephonic Outreach Provider Action/TAYA Left hip pain x 3 weeks-thinks she will have to have it replaced. Dr.Trevor Shin replaced right hip in 2020. Otherwise no new or worsening sx. Contacted [...] daily weight at home? No Based on medical coordinator pesticide use, the following disposition is advised: No symptoms or symptoms present, not severe. SEE FYI BOX ABOVE Routed to: No Action Needed RUTHIE Education Provided this Outreach: No Ashley Garcia RN November 08, 2022 1:17 PM [facility] 11-08-2022 Note Patient Outreach (AM [facility]) MATEO BEDOYA V ([id number]) 1945 F Date Time Provider Department 11/08/22 ASHLEY GARCIA [facility] During your visit today, we recorded the following information about you: Ashley Garcia RN 11/08/2022 1:18 PM Signed [facility] Telephonic Outreach Provider Malik Left hip pain x 3 weeks-thinks she [...] daily weight at home? No Based on medical coordinator pesticide use, the following disposition is advised: No symptoms [...] as of 01/12/2022: Changed all Rx's to [facility] Pharm[facility]. 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] 05/10/2004 Essential hypertension, benign [I10] 12/16/2005 Elevated glucose [R73.09] 05/24/2012 Hypothyroidism [E03.9] 05/24/2012 Hyperlipidemia, mixed [E78.2] 05/24/2012 Female stress incontinence [N39.3] 08/23/2012 Acute medial meniscus tear of right knee [S83.2*10/23/2013 12/27/2020 Arthritis of knee, right [M17.11] 07/09/2014 Coronary artery disease involving coe[place]'alene clay*01/09/2019 Carotid stenosis, asymptomatic, bilateral [I65.*10/02/2019 Carotid [...] Encounter Status:Closed by ASHLEY GARCIA on 11/08/22 [facility] 11-08-2022 History of Present illness Narrative [facility] Telephonic Outreach Provider Sapna/TAYA Left hip pain [...] daily weight at home? No Based on medical coordinator pesticide use, the following disposition is advised: No symptoms or symptoms present, not severe. SEE FYI BOX ABOVE Routed to: No Action Needed RUTHIE Education Provided this Outreach: No Ashley Garcia RN November 08, 2022 1:17 PM documented in this encounter [facility] 10-11-2022 Note HNO ID: [id number] Author: Ashley Garcia RN Service: ? Author Type: Registered Nurse Type: Progress Notes Filed: 10/11/2022 1:20 PM Note Text: [facility] Telephonic Outreach Provider Malik Left VM on mobile number (preferred contact number) and on home phone number. Contacted for: Routine Telephonic Outreach Contact made with patient: No, left message. Ashley Garcia RN October 11, 2022 1:20 PM [facility] 10-11-2022 Note Patient Outreach (AM [facility]) MATEO BEDOYA V ([id number]) 1945 F Date Time Provider Department 10/11/22 ASHLEY GARCIA [facility] [place] [facility] During your visit today, [...] as of 01/12/2022: Changed all Rx's to [facility] Pharmacy. 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] 05/10/2004 Essential hypertension, benign [I10] 12/16/2005 Elevated glucose [R73.09] 05/24/2012 Hypothyroidism [E03.9] 05/24/2012 Hyperlipidemia, mixed [E78.2] 05/24/2012 Female stress incontinence [N39.3] 08/23/2012 Acute medial meniscus tear of right knee [S83.2*10/23/2013 12/27/2020 Arthritis of knee, right [M17.11] 07/09/2014 Coronary artery disease involving [place]'alene clay*01/09/2019 Carotid stenosis, asymptomatic, bilateral [I65.*10/02/2019 Carotid [...] Encounter Status:Closed by ASHLEY GARCIA on 10/11/22 [facility] 10-11-2022 History of Present illness Narrative [facility] Telephonic Outreach Provider Sapna/TAYA Left VM on mobile number (preferred contact number) and on home phone number. Contacted for: Routine Telephonic Outreach Contact made with patient: No, left message. Ashley Garcia RN October 11, 2022 1:20 PM documented in this encounter [facility] 10-02-2022 Note HNO ID: [id number] Author: Rizwana Hoyt APRN.RADIOPHARMACIST Service: ? Author Type: Nurse Practitioner Type: [...] OR EXPOSED ROOT (ELEVATION AND/OR FORCEPS REMOVAL) [place] teeth LAPAROSCOPY SURG CHOLECYSTECTOMY Cholecystectomy, lap OOPHORECTOMY PARTIAL/TOTAL UNI/BI 80s Oophorectomy PAST SURGICAL HISTORY OF 80s 10 surgeries 14 abd tumors, all benign PAST SURGICAL HISTORY OF 12/16/2015 Dr. Reinoso, skin lesion removed PAST SURGICAL HISTORY OF Right 07/04/2016 right breast needle biopsy, benign - Dr. Reinoso PAST SURGICAL HISTORY OF N/A 05/23/2018 4 stents placed by [facility] PAST SURGICAL HISTORY OF N/A 08/14/2018 5th stent placed by [facility] PAST SURGICAL HISTORY OF Right [...] immediate medical evaluati (more content not included)... [facility] 10-02-2022 History of Present illness Narrative [...] OR EXPOSED ROOT (ELEVATION AND/OR FORCEPS REMOVAL) [place] teeth LAPAROSCOPY SURG CHOLECYSTECTOMY 90s Cholecystectomy, lap OOPHORECTOMY PARTIAL/TOTAL UNI/BI 80s Oophorectomy PAST SURGICAL HISTORY OF 80s 10 surgeries 14 abd tumors, all benign PAST SURGICAL HISTORY OF 12/16/2015 Dr. Reinoso, skin lesion removed PAST SURGICAL HISTORY OF Right 07/04/2016 right breast needle biopsy, benign - Dr. Reinoso PAST SURGICAL HISTORY OF N/A 05/23/2018 4 stents placed by [facility] PAST SURGICAL HISTORY OF N/A 08/14/2018 5th stent placed by [facility] PAST SURGICAL HISTORY OF Right [...] Rizwana Hoyt APRN.MARTIN documented in this encounter [facility] 10-02-2022 Instructions Rizwana Hoyt APRN.CNP - [...] Discussed expected course of illness Rizwana Hoyt APRN.[facility] CARE PATIENT INFO POISON ELLIE INTRODUCTION When [...] plants grow in many areas across the [facility] and throughout the world. [place] of the [facility], poison ellie commonly grows as a climbing vine. In the [place] area and west, poison ellie tends to grow low to the ground as a shrub. Poison oak most often grows west of the [facility], and poison sumac inhabits boggy areas in the southeastern part of the [place]. The plants are not usually found [...] poison ellie dermatitis. documented in this encounter [facility] 09-13-2022 Note Patient Outreach (AM [facility]) MATEO BEDOYA V ([id number]) 1945 F Date Time Provider Department 09/13/22 [...] daily weight at home? No Based on medical coordinator pesticide use, the following disposition is advised: No symptoms [...] goal align with programs offered at the [facility]? Yes Chronic Disease Management patient goals yes: Weight loss Most people know what to do to become healthier, yet struggle to put it into action on their own, It can be hard to maintain a healthy lifestyle, especially when life is so stressful. Can we connect you with a [facility] Health Search Coordinator to find a program that could help you meet your goals? No Falls completed:Yes ADL's updated: Yes Are you experiencing any new or worsening symptoms you need to talk about today? No Based on medical coordinator pesticide use, the following disposition is advised: No symptoms [...] as of 01/12/2022: Changed all Rx's to [facility] Pharmacy. 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 [facility] 09-13-2022 Note HNO ID: [id number] Author: Ashley Garcia RN Service: ? Author [...] daily weight at home? No Based on medical coordinator pesticide use, the following disposition is advised: No symptoms [...] goal align with programs offered at the [facility]? Yes Chronic Disease Management patient goals yes: Weight loss Most people know what to do to become healthier, yet struggle to put it into action on their own, It can be hard to maintain a healthy lifestyle, especially when life is so stressful. Can we connect you with a [facility] Health Search Coordinator to find a program that could help you meet your goals? No Falls completed:Yes ADL's updated: Yes Are you experiencing any new or worsening symptoms you need to talk about today? No Based on medical coordinator pesticide use, the following disposition is advised: No symptoms or symptoms present, not severe. Ashley Garcia RN September 13, 2022 11:37 AM [facility] 09-13-2022 History of Present illness Narrative [...] daily weight at home? No Based on medical coordinator pesticide use, the following disposition is advised: No symptoms [...] goal align with programs offered at the [facility]? Yes Chronic Disease Management patient goals yes: Weight loss Most people know what to do to become healthier, yet struggle to put it into action on their own, It can be hard to maintain a healthy lifestyle, especially when life is so stressful. Can we connect you with a [facility] Health Search Coordinator to find a program that could help you meet your goals? No Falls completed:Yes ADL's updated: Yes Are you experiencing any new or worsening symptoms you need to talk about today? No Based on medical coordinator pesticide use, the following disposition is advised: No symptoms or symptoms present, not severe. Ashley Garcia RN September 13, 2022 11:37 AM documented in this encounter [facility] 09-11-2022 Note HNO ID: [id number] Author: Rizwana Hoyt APRN.RADIOPHARMACIST Service: ? Author Type: Nurse Practitioner Type: [...] OR EXPOSED ROOT (ELEVATION AND/OR FORCEPS REMOVAL) [place] teeth LAPAROSCOPY SURG CHOLECYSTECTOMY 90s Cholecystectomy, lap OOPHORECTOMY PARTIAL/TOTAL UNI/BI 80s Oophorectomy PAST SURGICAL HISTORY OF 80s 10 surgeries 14 abd tumors, all benign PAST SURGICAL HISTORY OF 12/16/2015 Dr. Reinoso, skin lesion removed PAST SURGICAL HISTORY OF Right 07/04/2016 right breast needle biopsy, benign - Dr. Reinoso PAST SURGICAL HISTORY OF N/A 05/23/2018 4 stents placed by [facility] PAST SURGICAL HISTORY OF N/A 08/14/2018 5th stent placed by [facility] PAST SURGICAL HISTORY OF Right [...] HENT: Head: Cardio (more content not included)... [facility] 09-11-2022 History of Present illness Narrative [...] OR EXPOSED ROOT (ELEVATION AND/OR FORCEPS REMOVAL) [place] teeth LAPAROSCOPY SURG CHOLECYSTECTOMY 90s Cholecystectomy, lap OOPHORECTOMY PARTIAL/TOTAL UNI/BI 80s Oophorectomy PAST SURGICAL HISTORY OF 80s 10 surgeries 14 abd tumors, all benign PAST SURGICAL HISTORY OF 12/16/2015 Dr. Reinoso, skin lesion removed PAST SURGICAL HISTORY OF Right 07/04/2016 right breast needle biopsy, benign - Dr. Reinoso PAST SURGICAL HISTORY OF N/A 05/23/2018 4 stents placed by [facility] PAST SURGICAL HISTORY OF N/A 08/14/2018 5th stent placed by [facility] PAST SURGICAL HISTORY OF Right right upper [...] Rizwana Hoyt APRN.CNP documented in this encounter [facility] 09-11-2022 Instructions Rizwana Hoyt APRN.CNP - [...] stress under control documented in this encounter [facility] 08-31-2022 Note HNO ID: [id number] Author: Luanne Kent MD Service: ? Author Type: Physician Type: Progress Notes Filed: 08/31/2022 1:42 PM Note Text: Air Conditioning Engineer offered: Patient declinesJose Dumont is a 77 year old who presents for an annual gynecologic exam without complaints. Postmenopausal: Yes HRT use: No. Last Pap: prior to hysterectomy History of abnormal pap: No Last mammogram: 2022 normal Patient concerns for STD exposure: No. OB History T2 L2 SAB1 IAB0 Ectopic0 Multiple0 Live Births0 Conflicts Analyst History LMP: LMP Unknown, Hysterectomy Age at Menarche: Age at First : Age at Menopause: Conflicts Analyst History Comments: Sexual Activity: Not Currently; Male [...] OR EXPOSED ROOT (ELEVATION AND/OR FORCEPS REMOVAL) [place] teeth LAPAROSCOPY SURG CHOLECYSTECTOMY 90s Cholecystectomy, lap OOPHORECTOMY PARTIAL/TOTAL UNI/BI 80s Oophorectomy PAST SURGICAL HISTORY OF 80s 10 surgeries 14 abd tumors, all benign PAST SURGICAL HISTORY OF 12/16/2015 Dr. Reinoso, skin lesion removed PAST SURGICAL HISTORY OF Right 07/04/2016 right breast needle biopsy, benign - Dr. Reinoso PAST SURGICAL HISTORY OF N/A 05/23/2018 4 stents placed by [facility] PAST SURGICAL HISTORY OF N/A 08/14/2018 5th stent placed by [facility] PAST SURGICAL HISTORY OF Right [...] external genitalia atrophic, normal Bartholin's glands, urethra, [place]'s glands, no vulvar lesions, good vaginal support, [...] or sooner as needed Luanne Kent DO [facility] 08-20-2022 Miscellaneous Notes August 21, 2022 PID: [id number] Mateo Bedoya [address] [place] [address] Dear Ms. Bedoya, We are pleased to [...] report will be kept on file at [facility] as part of your permanent medical record and are available for your continuing care. Thank you for allowing us to help in meeting your health care needs. Sincerely, Dr. Mayers Interpreting Radiologist [facility] (Normal over 40) documented in this encounter [facility] 08-18-2022 Note HNO ID: [id number] Author: TOYIN Olmedo) Service: ? Author Type: Technologist Type: Progress [...] TOYIN Olmedo) August 18, 2022 1:00 PM [facility] 08-18-2022 History of Present illness Narrative [...] IV DATA: Not applicable SIGNED BY: RT Shara(R) August 18, 2022 1:00 PM documented in this encounter [facility] 08-15-2022 Note Patient Outreach (AM [facility]) MATEO BEDOYA V ([id number]) 1945 F Date Time Provider Department 08/15/22 [...] daily weight at home? No Based on medical coordinator pesticide use, the following disposition is advised: No symptoms [...] as of 01/12/2022: Changed all Rx's to [facility] Pharmacy. 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] 05/10/2004 Essential hypertension, benign [I10] 12/16/2005 Elevated glucose [R73.09] 05/24/2012 Hypothyroidism [E03.9] 05/24/2012 Hyperlipidemia, mixed [E78.2] 05/24/2012 Female stress incontinence [N39.3] 08/23/2012 Acute medial meniscus tear of right knee [S83.2*10/23/2013 12/27/2020 Arthritis of knee, right [M17.11] 07/09/2014 Coronary artery disease involving coe[place] d'alene clay*01/09/2019 Carotid stenosis, asymptomatic, bilateral [I65.*10/02/2019 Carotid [...] Encounter Status:Closed by TAMEKA ARRIOLA on 08/15/22 [facility] 08-15-2022 Note HNO ID: [id number] Author: Tameka Arriola RN Service: ? Author [...] daily weight at home? No Based on medical coordinator pesticide use, the following disposition is advised: No symptoms or symptoms present, not severe. Routed to: No Action Needed RTUHIE Education Provided this Outreach: No Tameka Arriola RN August 15, 2022 11:39 AM [facility] 08-14-2022 Note Patient Outreach (AM BC) MATEO BEDOYA V ([id number]) 1945 F Date Time Provider Department 08/14/22 TAMEKA ARRIOLAG During your visit today, we recorded the following information about you: Tameka Arriola RN 08/14/2022 11:29 AM Signed [facility] Telephonic Outreach Provider Action/FYI Made call #1. [...] as of 01/12/2022: Changed all Rx's to [facility]. 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] 05/10/2004 Essential hypertension, benign [I10] 12/16/2005 Elevated glucose [R73.09] 05/24/2012 Hypothyroidism [E03.9] 05/24/2012 Hyperlipidemia, mixed [E78.2] 05/24/2012 Female stress incontinence [N39.3] 08/23/2012 Acute medial meniscus tear of right knee [S83.2*10/23/2013 12/27/2020 Arthritis of knee, right [M17.11] 07/09/2014 Coronary artery disease involving [place] clay*01/09/2019 Carotid stenosis, asymptomatic, bilateral [I65.*10/02/2019 Carotid [...] Encounter Status:Closed by TAMEKA ARRIOLA on 08/14/22 [facility] 08-14-2022 Note HNO ID: [id number] Author: Tameka Arriola RN Service: ? Author Type: Registered Nurse Type: Progress Notes Filed: 08/14/2022 11:29 AM Note Text: CDM Telephonic Outreach Provider Action/FYI Made call #1. NA/left vm. Contacted for: Routine Telephonic Outreach Contact made with patient: No, left message. Tameka Arriola RN August 14, 2022 11:29 AM [facility] 07-14-2022 Note HNO ID: [id number] Author: Alejandra Valle MD Service: ? Author Type: Physician Type: Progress Notes Filed: 07/14/2022 5:27 PM Note Text: Chief Complaint Patient presents with: F/U 6 Month HPI Mateo Bedoya is a 77 year old female who presents here today for 6 month follow up. Here with her . No bowel, Gi, or urinary issues. Declines wanting to complete colon cancer screening. Follows with [facility] Dr. Kent who prescribes Ditropan xl 10 mg daily for OAB. Pain: Controlled on Gabapentin 300 mg 2 pills BID. Stable with use of medication. CAD/Lipid: Follows with [facility] Dr. Man. Follows with Vascular [...] wanted to control with lifestyle. Follows with [facility], scheduled to see them in August. HTN: Denies checking BP at home, no chest pains, dizziness, or SOB. Taking HCTZ 12.5 mg daily, Losartan 50 mg 2 pills once daily and Atenolol 100 mg BID. Still following with [facility], last seen 06/06/22. Follow up annually. Thyroid: [...] OR EXPOSED ROOT (ELEVATION AND/OR FORCEPS REMOVAL) [place] teeth LAPAROSCOPY SURG CHOLECYSTECTOMY 90s Cholecystectomy, lap OOPHORECTOMY PARTIAL/TOTAL UNI/BI 80s Oophorectomy PAST SURGICAL HISTORY OF 80s 10 surgeries 14 abd tumors, all benign PAST SURGICAL HISTORY OF 12/16/2015 Dr. Reinoso, skin lesion removed PAST SURGICAL HISTORY OF Right 07/04/2016 right breast needle biopsy, benign - Dr. Reinoso PAST SURGICAL HISTORY OF N/A 05/23/2018 4 stents placed by [facility] PAST SURGICAL HISTORY OF N/A 08/14/2018 5th stent placed by [facility] PAST SURGICAL HISTORY OF Right [...] mL (BD POSIFLUSH (more content not included)... [facility] 07-13-2022 Note HNO ID: [id number] Author: Tameka Arriola RN Service: ? Author [...] daily weight at home? No Based on medical coordinator pesticide use, the following disposition is advised: Symptoms present, not severe. Routed to: No Action Needed RUTHIE Education Provided this Outreach: No Tameka Arriola RN July 13, 2022 3:54 PM [facility] 07-13-2022 History of Present illness Narrative [...] daily weight at home? No Based on medical coordinator pesticide use, the following disposition is advised: Symptoms present, not severe. Routed to: No Action Needed RUTHIE Education Provided this Outreach: No Tameka Arriola RN July 13, 2022 3:54 PM documented in this encounter [facility] 07-13-2022 Note Patient Outreach (AM [facility]) MATEO BEDOYA V ([id number]) 1945 F Date Time Provider Department 07/13/22 [...] daily weight at home? 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] 05/10/2004 Essential hypertension, benign [I10] 12/16/2005 Elevated glucose [R73.09] 05/24/2012 Hypothyroidism [E03.9] 05/24/2012 Hyperlipidemia, mixed [E78.2] 05/24/2012 Female stress incontinence [N39.3] 08/23/2012 Acute medial meniscus tear of right knee [S83.2*10/23/2013 12/27/2020 Arthritis of knee, right [M17.11] 07/09/2014 Coronary artery disease involving coe[place] d'alene clay*01/09/2019 Carotid stenosis, asymptomatic, bilateral [I65.*10/02/2019 Carotid [...] Encounter Status:Closed by TAMEKA ARRIOLA on 07/13/22 [facility] 07-12-2022 Note HNO ID: [id number] Author: Jen Mary Service: ? Author Type: ? Type: Progress Notes Filed: 07/12/2022 6:12 PM Note Text: Summary: I year follow up Mickey Gonzalez # [id number] Study Name: Mesfin Sophiasandra PI: Claudia Wilson [...] assessment completed per protocol: Yes: Normal Modified [place] completed per protocol: Yes: 0 = No symptoms Discussed with the patient the importance of follow up in the study. Patient verbalized understanding. Next study visit will be in 1 year in clinic for her 2 year follow up Patient contact information reaffirmed and updated. Coordinator contact information provided to the patient. Education provided: Follow up requirements/schedule Materials dispensed: None [employer] Pulper: Jen Mary RN Pager #: [phone] [facility] 07-12-2022 History of Present illness Narrative Summary: I year follow up Mickey Gonzalez # [id number] Study Name: Mesfin Knott PI: Claudia Wilson [...] assessment completed per protocol: Yes: Normal Modified [place] completed per protocol: Yes: 0 = No symptoms Discussed with the patient the importance of follow up in the study. Patient verbalized understanding. Next study visit will be in 1 year in clinic for her 2 year follow up Patient contact information reaffirmed and updated. Coordinator contact information provided to the patient. Education provided: Follow up requirements/schedule Materials dispensed: None [employer] Pulper: Jen Mary RN Pager #: [phone] documented in this encounter [facility] 07-12-2022 Note HNO ID: [id number] Author: Diomedes Riddle MD Service: ? Author Type: Physician Type: Progress Notes Filed: 07/13/2022 10:20 AM Note Text: [facility] [place] DEPARTMENT OF VASCULAR SURGERY OUTPATIENT VISIT DATE [...] OR EXPOSED ROOT (ELEVATION AND/OR FORCEPS REMOVAL) [place] teeth LAPAROSCOPY SURG CHOLECYSTECTOMY 90s Cholecystectomy, lap OOPHORECTOMY PARTIAL/TOTAL UNI/BI 80s Oophorectomy PAST SURGICAL HISTORY OF 80s 10 surgeries 14 abd tumors, all benign PAST SURGICAL HISTORY OF 12/16/2015 Dr. Reinoso, skin lesion removed PAST SURGICAL HISTORY OF Right 07/04/2016 right breast needle biopsy, benign - Dr. Reinoso PAST SURGICAL HISTORY OF N/A 05/23/2018 4 stents placed by [facility] PAST SURGICAL HISTORY OF N/A 08/14/2018 5th stent placed by [facility] PAST SURGICAL HISTORY OF Right [...] Mid: PSV: 14 (more content not included)... [facility] 07-12-2022 History of Present illness Narrative Images from the original note were not included. [facility] [place] DEPARTMENT OF VASCULAR SURGERY OUTPATIENT VISIT DATE [...] OR EXPOSED ROOT (ELEVATION AND/OR FORCEPS REMOVAL) [place] teeth LAPAROSCOPY SURG CHOLECYSTECTOMY 90s Cholecystectomy, lap OOPHORECTOMY PARTIAL/TOTAL UNI/BI 80s Oophorectomy PAST SURGICAL HISTORY OF 80s 10 surgeries 14 abd tumors, all benign PAST SURGICAL HISTORY OF 12/16/2015 Dr. Reinoso, skin lesion removed PAST SURGICAL HISTORY OF Right 07/04/2016 right breast needle biopsy, benign - Dr. Reinoso PAST SURGICAL HISTORY OF N/A 05/23/2018 4 stents placed by [facility] PAST SURGICAL HISTORY OF N/A 08/14/2018 5th stent placed by [facility] PAST SURGICAL HISTORY OF Right [...] DATE: July 12, 2022 TIME: 3:36 PM [facility] STAFF PHYSICIAN NOTE OF PERSONAL INVOLVEMENT IN [...] Diomedes Riddle MD documented in this encounter [facility] 06-29-2022 Miscellaneous Notes The following approved [...] Last Labs: 01/06/2022 documented in this encounter [facility] 06-08-2022 Note HNO ID: [id number] Author: Cayetano Funes RN Service: ? Author Type: Registered Nurse Type: Progress Notes Filed: 06/08/2022 3:38 PM Note Text: INSIGHT CDM TELEPHONIC OUTREACH Provider Action/FYI: - ckd, htn, dm - per pt, she was with her auto body customizer yesterday and was told she is doing [...] like to speak with a social work promotions team leader to help give you support for any [...] you up for automated weekly questionnaires through slinkset. This is an easy way for us [...] the Track Pt Outreach and End outreach. [facility] 06-08-2022 Note Patient Outreach (AM [facility]) NAYANMANOLOMATEO Yahaira ([id number]) 1945 F Date Time Provider Department 06/08/22 CAYETANO FUNES During your visit today, we recorded the following information about you: Cayetano Funes RN 06/08/2022 3:38 PM Signed [facility] TELEPHONIC OUTREACH Provider Action/I: - ckd, htn, dm - per pt, she was with her auto body customizer yesterday and was told she is doing [...] like to speak with a social work promotions team leader to help give you support for any [...] you up for automated weekly questionnaires through slinkset. This is an easy way for us [...] mL (BD PO (more content not included)... [facility] 05-05-2022 Note Patient Outreach (AM [facility]) MATEO BEDOYA V ([id number]) 1945 F Date Time Provider Department 05/05/22 TAMEKA ARRIOLA During your visit today, we recorded the following information about you: Tameka Arriola RN 05/05/2022 11:22 AM Signed INSIGHT CDM [...] like to speak with a social work promotions team leader to help give you support for any [...] you up for automated weekly questionnaires through slinkset. This is an easy way for us [...] - perflutren l (more content not included)... [facility] 05-05-2022 Note HNO ID: [id number] Author: Tameka Arriola RN Service: ? Author [...] like to speak with a social work promotions team leader to help give you support for any [...] you up for automated weekly questionnaires through slinkset. This is an easy way for us [...] the Track Pt Outreach and End outreach. [facility] 05-05-2022 History of Present illness Narrative [...] like to speak with a social work promotions team leader to help give you support for any [...] you up for automated weekly questionnaires through slinkset. This is an easy way for us [...] and End outreach. documented in this encounter [facility] 04-04-2022 History of Present illness Narrative [...] like to speak with a social work promotions team leader to help give you support for any [...] you up for automated weekly questionnaires through slinkset. This is an easy way for us [...] Outreach. End outreach documented in this encounter [facility] 03-22-2022 Miscellaneous Notes Authorized from February [...] Provider: Dr Marianela Valle Insurance Company Name: [employer] Phone number: [phone] Patient ID number: [id number] Pharmacy Name: [facility] Telephone number: [phone] Moon Bennett LPN documented in this encounter [facility] 03-21-2022 Miscellaneous Notes OK to refill [...] patient. Corie Watson documented in this encounter [facility] 03-13-2022 Miscellaneous Notes The following approved medication requests have been transmitted electronically. Requested Prescriptions Pending Prescriptions Disp Refills atorvastatin (LIPITOR) 80 mg tablet 30 tablet 11 Sig: Take 1 tablet by mouth once daily. clopidogrel (PLAVIX) 75 mg tablet 30 tablet 11 Sig: Take 1 tablet by mouth once daily. Umesh Liz APRN.RADIOPHARMACIST Patient has been identified by name and [...] Dang Huitron Pss documented in this encounter [facility] 02-07-2022 History of Present illness Narrative [...] like to speak with a social work promotions team leader to help give you support for any [...] you up for automated weekly questionnaires through slinkset. This is an easy way for us [...] and End outreach. documented in this encounter [facility] 01-19-2022 History of Present illness Narrative Images from the original note were not included. [facility] [place] DEPARTMENT OF VASCULAR SURGERY OUTPATIENT VISIT DATE [...] OR EXPOSED ROOT (ELEVATION AND/OR FORCEPS REMOVAL) [place] teeth LAPAROSCOPY SURG CHOLECYSTECTOMY 90s Cholecystectomy, lap OOPHORECTOMY PARTIAL/TOTAL UNI/BI 80s Oophorectomy PAST SURGICAL HISTORY OF 80s 10 surgeries 14 abd tumors, all benign PAST SURGICAL HISTORY OF 12/16/2015 Dr. Reinoso, skin lesion removed PAST SURGICAL HISTORY OF Right 07/04/2016 right breast needle biopsy, benign - Dr. Reinoso PAST SURGICAL HISTORY OF N/A 05/23/2018 4 stents placed by [facility] PAST SURGICAL HISTORY OF N/A 08/14/2018 5th stent placed by [facility] PAST SURGICAL HISTORY OF Right [...] TIME: 10:14 AM documented in this encounter [facility] 01-18-2022 History of Present illness Narrative Summary: Follow up Visit [facility] # [id number] Study Name: Mesfin Knott PI: Claudia Wilson Study Visit: Follow- up Visit I met with the patient for the 180 day follow up for the Uzair Study. Reaffirmed [...] up requirements/schedule Materials dispensed: Coordinator Contact Card [employer] Pulper: Jen Mary RN Pager #: [phone] documented in this encounter [facility] 01-06-2022 History of Present illness Narrative POPULATION HEALTH NAVIGATION OUTREACH Action/FYI Patient due for JESSICA Patient states she sees outside provider. Saw Dr. Moon at [facility] on 08/26/2021. States she does not [...] visits Payer: Payor: AET MEDICARE / Plan: [employer] MEDICARE PPO / [...] 2022 3:16 PM documented in this encounter [facility] 12-14-2021 History of Present illness Narrative [...] like to speak with a social work promotions team leader to help give you support for any [...] you up for automated weekly questionnaires through slinkset. This is an easy way for us [...] and End outreach. documented in this encounter [facility] 12-13-2021 Miscellaneous Notes Left message on patient's cell number (preferred number) regarding 12/28/21 appointments rescheduling for 01/18/22. Provided [phone] as call back number. Vicky Palma Research Coordinator- Cardiothoracic and Vascular Surgery documented in this encounter [facility] 12-13-2021 History of Present illness Narrative INSIGHT CDM TELEPHONIC OUTREACH Provider Action/FYI: Contact made with patient: No - Left message Marcos my name is Radha Carrizales RN your Chip Mucker from the [facility] I am calling today for your bi-weekly check in. I am sorry I missed your call. I will reach out to you again tomorrow. (if the third call I will reach out to you again next week) Enter next patient outreach date for the following using the Track Pt Outreach. End outreach. documented in this encounter [facility] 11-25-2021 Instructions Pauly Bowman APRN.MARTIN - [...] get into PMD documented in this encounter [facility] 11-25-2021 History of Present illness Narrative Images from the original note were not included. Subjective The history is provided by the patient. No speech language pathology assistant was used. HPI Mateo Bedoya is a [...] have confirmed and edited as necessary, the [facility] Review of Systems Constitutional: Negative for [...] Pauly Bowman APRN.CNP documented in this encounter [facility] 11-15-2021 History of Present illness Narrative [...] like to speak with a social work promotions team leader to help give you support for any [...] you up for automated weekly questionnaires through slinkset. This is an easy way for us [...] and End outreach. documented in this encounter [facility] 10-18-2021 History of Present illness Narrative [facility] CDM Enrollment Provider Action/FYI: Patient referred by: [facility] Priti Contact made with patient: Yes - Patient identified by name and . Discussed care with patient Marcos this is Radha Carrizales RN and I am calling from Alejandra Valle MD office at the [facility]. I am a RN Chip Mucker with our [facility] Chronic Disease Management program. [...] few questions once a week through your slinkset account. It will automatically show up for [...] goal align with programs offered at the [facility]? Yes Chronic Disease Management patient goals yes: Weight loss Most people know what to do to become healthier, yet struggle to put it into action on their own.It can be hard to maintain a healthy lifestyle, especially when life is so stressful. Can we connect you with a [facility] Health Search Coordinator to find a program that could help [...] today s date) documented in this encounter [facility] 10-11-2021 History of Present illness Narrative PRIMARY CARE COORDINATION QUICK NOTE Provider Action/FYI Enrollment intro sent to patient via my chart. Will follow up with a phone call within the next few days. Patient identified by name and date . Radha Carrizales RN Testing Specialist documented in this encounter [facility] 08-18-2021 History of Present illness Narrative Images from the original note were not included. Heart [facility] [place] DEPARTMENT OF VASCULAR SURGERY OUTPATIENT VISIT DATE [...] OR EXPOSED ROOT (ELEVATION AND/OR FORCEPS REMOVAL) [place] teeth LAPAROSCOPY SURG CHOLECYSTECTOMY 90s Cholecystectomy, lap OOPHORECTOMY PARTIAL/TOTAL UNI/BI 80s Oophorectomy PAST SURGICAL HISTORY OF 80s 10 surgeries 14 abd tumors, all benign PAST SURGICAL HISTORY OF 12/16/2015 Dr. Reinoso, skin lesion removed PAST SURGICAL HISTORY OF Right 07/04/2016 right breast needle biopsy, benign - Dr. Reinoso PAST SURGICAL HISTORY OF N/A 05/23/2018 4 stents placed by [facility] PAST SURGICAL HISTORY OF N/A 08/14/2018 5th stent placed by [facility] PAST SURGICAL HISTORY OF Right [...] DATE: August 18, 2021 TIME: 9:58 AM [facility] STAFF PHYSICIAN NOTE OF PERSONAL INVOLVEMENT IN [...] SERVICE: 2:07 PM documented in this encounter [facility] 08-16-2021 Miscellaneous Notes August 16, 2021 PID: [id number] Mateo Bedoya [address] [place] [address] Dear Ms. Bedoya, We are pleased to [...] report will be kept on file at [facility] as part of your permanent medical record and are available for your continuing care. Thank you for allowing us to help in meeting your health care needs. Sincerely, Dr. Amaya Interpreting Radiologist [facility] (Normal over 40) documented in this encounter [facility] 08-02-2021 History of Present illness Narrative [...] 2021 11:33 AM documented in this encounter [facility] 07-25-2021 History of Present illness Narrative [...] Radha Stein Ma documented in this encounter [facility] 07-21-2021 History of Present illness Narrative [...] TCM Home Visit Referral Source of Stratification: [facility] Admission Status: Discharged Readmission Risk Score: 9 LIDIA Score: 2 Program referral criteria met: Does not meet referral criteria Patient does not qualify for High Risk TCM Home Visit program due to: Does not meet referral criteria Patient does not quality for High Risk TCM Home Visit Program due to: Does not meet referral criteria Preferred contact number: [phone] Is patient staying somewhere other than the [...] Valle within a wk will forward to receptionist scheduler SUMMARY: Pt discharged from [facility] on 07/20. Admitted for: S/P Left carotid artery stent Contact made with patient: Yes Hi my name is Bri Bhardwaj RN and I am calling from the [facility] on behalf of your PCP, Alejandra [...] like to speak with a social work promotions team leader to help give you support for any [...] I will send your request to a receptionist scheduler who will contact and assist you with that appointment. This will give you an opportunity to ask any questions or address any concerns you may have with your PCP. Inform the patient that if they have any questions or concerns prior to that appointment, to call their PCP's office right away. ACTION TAKEN: Patient desires an appointment - Routed to [facility] [[id number]] for scheduling telehealth visit (telephonic, virtual visit, [...] way if possible). documented in this encounter [facility] 07-20-2021 Nurse Note Study Name: Mesfin [...] assessment completed per protocol: Yes: Normal Modified [place] completed per protocol: Yes: 0 = No symptoms Discussed with the patient the importance of follow up in the study. Patient verbalized understanding. Next study visit will be in 30 days in clinic Patient contact information reaffirmed and updated. Coordinator contact information provided to the patient. Education provided: Protocol required tests/procedures and Follow up requirements/schedule Materials dispensed: Coordinator Contact Card [employer] Pulper: Gricelda Ruiz [facility] Pager #: [phone] documented in this encounter [facility] 07-19-2021 Nurse Note Study Name: Mesfin Knott PI: Claudia Wilson Study Visit: Baseline/Screening I met with the patient for the index procedure visit for the Uzair Study. Reaffirmed that the patient still wishes to participate in the study and continues to consent to the study. Index procedure successfully complete [employer] Pulper: Gricelda Ruiz [facility] Pager #: [phone] documented in this encounter [facility] 07-18-2021 Nurse Note Study Name: Mesfin Knott PI: Claudia Wilson Study Visit: Baseline/Screening I met with the patient for the Baseline visit for the Uzair Study. Medications and allergy lists updated and [...] assessment completed per protocol: Yes: Normal Modified [place] completed per protocol: Yes: 0 = No symptoms Patient contact information reaffirmed and updated. Coordinator contact information provided to the patient. Education provided: Protocol required tests/procedures and Follow up requirements/schedule Materials dispensed: Coordinator Contact Card [employer] Pulper: Gricelda Ruiz [facility] Pager #: [phone] documented in this encounter [facility] 07-18-2021 History and physical note VASCULAR SURGERY PREOPERATIVE H&P SERVICE DATE: 07/18/21 SERVICE TIME: 1200 PRIMARY CARE PHYSICIAN: Alejandra Valle MD REFERRING PROVIDER: Diomedes Riddle [address] [facility] [address] Consult requested for an opinion regarding the [...] OR EXPOSED ROOT (ELEVATION AND/OR FORCEPS REMOVAL) [place] teeth LAPAROSCOPIC CHOLEYCYSTECTOMY 90s Cholecystectomy, lap PAST SURGICAL HISTORY OF 80s 10 surgeries 14 abd tumors, all benign PAST SURGICAL HISTORY OF 12/16/2015 Dr. Reinoso, skin lesion removed PAST SURGICAL HISTORY OF Right 07/04/2016 right breast needle biopsy, benign - Dr. Reinoso PAST SURGICAL HISTORY OF N/A 05/23/2018 4 stents placed by [facility] PAST SURGICAL HISTORY OF N/A 08/14/2018 5th stent placed by [facility] PAST SURGICAL HISTORY OF Right [...] injection (DEFINITY) INTRAVENOUS DIRECTED PRN Ashleigh Marsh, MAKING MACHINE CATCHER.RADIOPHARMACIST sodium chloride 0.9 % (flush) 10 mL (BD POSIFLUSH) 10 mL INTRAVENOUS DIRECTED PRN Ashleigh Marsh, MAKING MACHINE CATCHER.RADIOPHARMACIST ALLERGIES Allergen Reactions Bee Stings And Inse* [...] 07/18/21 TIME: 1319 documented in this encounter [facility] 07-18-2021 History of Present illness Narrative [...] VASCULAR SURG DEPT documented in this encounter [facility] 07-18-2021 Instructions Ashleigh Marsh APRN.CNP - [...] Ashleigh Marsh APRN.MARTIN documented in this encounter [facility] 07-15-2021 Miscellaneous Notes Filed Refill request received from pharmacy. Patient last seen in office on 10/14/20. 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 TC to pt, left detailed message on secure identified voicemail. Miguel Kendrick LPN Patient stated [facility] told her they did not get a script for her Epipen. [facility] says it was received. Please resend. documented in this encounter [facility] 07-13-2021 History of Present illness Narrative [...] OR EXPOSED ROOT (ELEVATION AND/OR FORCEPS REMOVAL) [place] teeth LAPAROSCOPIC CHOLEYCYSTECTOMY 90s Cholecystectomy, lap PAST SURGICAL HISTORY OF 80s 10 surgeries 14 abd tumors, all benign PAST SURGICAL HISTORY OF 12/16/2015 Dr. Reinoso, skin lesion removed PAST SURGICAL HISTORY OF Right 07/04/2016 right breast needle biopsy, benign - Dr. Reinoso PAST SURGICAL HISTORY OF N/A 05/23/2018 4 stents placed by [facility] PAST SURGICAL HISTORY OF N/A 08/14/2018 5th stent placed by [facility] PAST SURGICAL HISTORY OF Right [...] weight loss. 6. Coronary artery disease involving [place] coronary artery of [place] heart, unspecified whether angina present - ICD9: [...] Past Histories independently gathered by the clinical administrative support specialist and the remaining scribed note [...] Radha Stein Ma documented in this encounter [facility] History of Past [facility] Narrative* Problem [...] of this encounter (statuses as of 07/13/2021) [facility] Narrative* Problem [...] of this encounter (statuses as of 07/15/2021) [facility] N[facility]ative* Problem [...] of this encounter (statuses as of 07/15/2021) [facility] Narrative* Problem [...] of this encounter (statuses as of 07/18/2021) [facility] Narrative* Problem [...] of this encounter (statuses as of 07/18/2021) [facility] Narrative* Problem [...] of this encounter (statuses as of 07/18/2021) [facility]* Problem [...] of this encounter (statuses as of 07/19/2021) [facility]ative* Problem [...] of this encounter (statuses as of 07/20/2021) [facility] N[facility]ative* Problem [...] of this encounter (statuses as of 07/21/2021) [facility] Narrative* Problem [...] of this encounter (statuses as of 07/25/2021) [facility]ative* Problem [...] of this encounter (statuses as of 08/02/2021) [facility]* Problem [...] of this encounter (statuses as of 08/18/2021) [facility]ative* Problem [...] of this encounter (statuses as of 08/18/2021) [facility]* Problem [...] of this encounter (statuses as of 10/12/2021) [facility]* Problem [...] of this encounter (statuses as of 10/18/2021) [facility]* Problem [...] of this encounter (statuses as of 11/15/2021) [facility]* Problem [...] of this encounter (statuses as of 11/25/2021) [facility]* Problem [...] of this encounter (statuses as of 12/13/2021) [facility]* Problem [...] of this encounter (statuses as of 12/14/2021) [facility]* Problem [...] of this encounter (statuses as of 01/06/2022) [facility]* Problem [...] of this encounter (statuses as of 01/18/2022) [facility]* Problem [...] of this encounter (statuses as of 01/19/2022) [facility]* Problem [...] of this encounter (statuses as of 02/07/2022) [facility]* Problem [...] of this encounter (statuses as of 02/24/2022) [facility]* Problem [...] of this encounter (statuses as of 03/13/2022) [facility]* Problem [...] of this encounter (statuses as of 03/27/2022) [facility]* Problem [...] of this encounter (statuses as of 03/29/2022) [facility]* Problem [...] of this encounter (statuses as of 04/04/2022) [facility]* Problem [...] of this encounter (statuses as of 05/05/2022) [facility]* Problem [...] of this encounter (statuses as of 06/29/2022) [facility]* Problem [...] of this encounter (statuses as of 07/13/2022) [facility]* Problem [...] of this encounter (statuses as of 07/13/2022) [facility]* Problem [...] of this encounter (statuses as of 07/14/2022) [facility]* Problem [...] of this encounter (statuses as of 08/22/2022) [facility]* Problem [...] of this encounter (statuses as of 09/12/2022) [facility]* Problem [...] of this encounter (statuses as of 09/13/2022) [facility]* Problem [...] of this encounter (statuses as of 10/03/2022) [facility]* Problem [...] of this encounter (statuses as of 10/11/2022) [facility]* Problem [...] of this encounter (statuses as of 11/09/2022) [facility]* Problem [...] of this encounter (statuses as of 11/21/2022) [facility] N[facility]* Problem [...] Ppx: [facility] Dispo: d/c home today once NAGY removed after staff approval, tolerating diet, ambulating w/o difficulties, voiding spontaneously Carotid artery stenosis 10/21/201906/24 Last Assessment & Plan: Assessment: s/p left endarterectomy 09/2019, following [facility], pending f/u US in 5 mos Acute medial meniscus tear of right knee 10/23/2013 12/27/2020 documented as of this encounter (statuses as of 12/06/2022) [facility] N[facility]ative* Problem [...] of this encounter (statuses as of 01/02/2023) [facility]* Problem [...] of this encounter (statuses as of 01/04/2023) [facility]* Problem [...] of this encounter (statuses as of 01/08/2023) [facility]* Problem [...] of this encounter (statuses as of 01/09/2023) [facility]* Problem [...] of this encounter (statuses as of 01/15/2023) [facility]* Problem [...] of this encounter (statuses as of 01/28/2023) [facility]* Problem [...] of this encounter (statuses as of 02/01/2023) [facility]* Problem [...] of this encounter (statuses as of 02/02/2023) [facility]* Problem [...] of this encounter (statuses as of 02/06/2023) [facility]* Problem [...] of this encounter (statuses as of 02/21/2023) [facility]* Problem [...] of this encounter (statuses as of 02/28/2023) [facility]* Problem [...] of this encounter (statuses as of 03/01/2023) [facility]* Problem [...] of this encounter (statuses as of 03/07/2023) [facility]* Problem [...] of this encounter (statuses as of 03/12/2023) [facility]* Problem [...] of this encounter (statuses as of 04/27/2023) [facility]* Problem [...] of this encounter (statuses as of 05/03/2023) [facility]* Problem [...] of this encounter (statuses as of 05/04/2023) [facility]* Problem [...] of this encounter (statuses as of 05/04/2023) [facility] N[facility]ative* Problem [...] available : Voiding spontaneously without difficulties; home AEBL and ARB resumed Heme: F/u AM labs [...] of this encounter (statuses as of [facility]/04/2023) [facility] Overactive bladder Hypertonicity of [...] examination, unspecified [facility] Diagnosis Research study patient- Primary Stenosis [...] study patient- Primary [facility] Research study patient- Primary [...] of insulin (HCC) Coronary artery disease involving [place] coronary artery of [place] heart, unspecified whether angina present Essential hypertension, [...] in clinical trial [facility] Research study patient- Primary [facility] Diagnosis Bilateral carotid artery stenosis- Primary Occlusion and stenosis of carotid artery without mention of cerebral infarction [facility] Diagnosis 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 Rash Rash and other nonspecific skin eruption [facility] Diagnosis Rash- Primary Rash and other nonspecific skin eruption [facility] Diagnosis Essential hypertension, benign [facility] Diagnosis Arthritis of hip- Primary Unspecified arthropathy, pelvic region and thigh [facility] Diagnosis Pain in left hip Pain in joint, pelvic region and thigh [facility] Diagnosis Essential hypertension, benign- Primary Hyperlipidemia, mixed Mixed hyperlipidemia Type 2 diabetes mellitus with stage 3a chronic kidney disease, without long-term current use of insulin (HCC) Acquired hypothyroidism Unspecified hypothyroidism Overactive bladder Hypertonicity of bladder Nerve pain Neuralgia, neuritis, and radiculitis, unspecified Coronary artery disease involving [place] coronary artery of [place] heart, unspecified whether angina present Benign neoplasm of cerebral meninges (HCC) Benign neoplasm of cerebral meninges [facility] Diagnosis Primary osteoarthritis of left hip- Primary Primary localized osteoarthrosis, pelvic region and thigh [facility] Visit Details [...] for LB dressing [facility] Visit [...] Discuss all medications you are taking, even [id number] medicines, with your provider and pharmacist since [...] home exercise program. documented in this encounter [facility] for referral (narrative)* Diagnostic Procedure Only (Routine) - Authorized Specialty Diagnoses / Procedures Referred By Wanda leos Referred To Contact [facility] Diagnoses Encounter for screening mammogram for malignant neoplasm of breast Procedures KIM SCREENING SCREENING MAMMOGRAPHY BI 2-VIEW BREAST INC CAD Alejandra Valle MD [address] [place] [address] [facility] [address] [place] [address] Referral ID Status Reason Start Date Expiration Date Visits Requested Visits Authorized [id number] Authorized Auto-Generat ed Referral 07/13/2021 08/12/2022 1 1 [facility] for referral (narrative)* Outpatient Procedure (Routine) - Pending Review Specialty Diagnoses / Procedures Referred By Wanda leos Referred To Contact [facility] Diagnoses Carotid stenosis, asymptomatic, bilateral Examination of participant in clinical trial Procedures US CAROTID ARTERIES [facility] DUPLEX SCAN EXTRACRANIAL ART COMPL BI STUDY Diomedes Riddle MD [address] [place] [address] [facility] [place] [address] [facility] [place] [address] Referral ID Status Reason Start Date Expiration Date Visits Requested Visits Authorized [id number] Pending Review Auto-Generat ed Referral 07/12/2022 02/22/2023 1 1 [facility] for referral (narrative)* Diagnostic Procedure Only (Routine) - Closed Specialty Diagnoses / Procedures Referred By Wanda leos Referred To Contact XR IMAGING Diagnoses Pain in left hip Procedures XR HIP GENERAL 3V PELV/AP/LAT LEFT RADEX HIP UNILATERAL WITH PELVIS 2-3 VIEWS Eros Jay PA-C [address] [place] [address] [place] [address] Referral ID Status Reason Start Date Expiration Date V isits Requested Visits Authorized [id number] Closed Auto-Generate d Referral 12/22/2022 01/21/2024 1 1 [facility] for visit Narrative* Diagnostic Procedure Only (Routine) - Closed Specialty Diagnoses / Procedures Referred By Wanda leos Referred To Contact [facility] Diagnoses Visit for screening mammogram Procedures KIM SCREENING SCREENING MAMMOGRAPHY BI 2-VIEW BREAST INC Alejandra Cordon MD [address] [place] [address] [facility] [address] [place] [address] Referral ID Status Reason Start Date Expiration Date V isits Requested Visits Authorized [id number] Closed Auto-Generate d Referral 07/27/2022 08/24/2023 1 1 [facility] Advance Directives Documents on File Type Date Recorded Patient Health Officer Expl anation Advance Directive(s) 04/16/2017 11:17 AM Latest Code Status on File Code Status Date Activated Date Inactivated Comments Full Code 01/19/2020 5:04 PM 07/19/2021 5:23 AM Full Code 01/15/2020 2:00 PM 01/17/2020 8:35 PM Full Code Order Discussed With: Discussion Not M edically Appropriate Documents on File Type Date Recorded Patient Health Officer Expl anation Advance Directive(s) Advance Directive(s) 01/08/2020 11:12 AM Advance Directive(s) 10/21/2019 7:32 AM Advance Directive(s) 10/08/2019 1:16 PM Advance Directive(s) 04/16/2017 11:17 AM Latest Code Status on File Code Status Date Activated Date Inactivated Comments Full Code 01/19/2020 5:04 PM Full Code 01/15/2020 2:00 PM 01/17/2020 8:35 PM Documents on File Type Date Recorded Patient Health Officer Expl anation Advance Directive(s) Advance Directive(s) 01/08/2020 11:12 AM Advance Directive(s) 10/21/2019 7:32 AM Advance Directive(s) 10/08/2019 1:16 PM Advance Directive(s) 04/16/2017 11:17 AM Latest Code Status on File Code Status Date Activated Date Inactivated Comments Full Code 01/19/2020 5:04 PM Documents on File Type Date Recorded Patient Health Officer Expl anation Advance Directive(s) Advance Directive(s) 07/18/2021 1:59 PM Advance Directive(s) 01/08/2020 11:12 AM Advance Directive(s) 10/21/2019 7:32 AM Advance Directive(s) 10/08/2019 1:16 PM Advance Directive(s) 04/16/2017 11:17 AM Documents on File Type Date Recorded Patient Health Officer Expl anation Advance Directive(s) 04/16/2017 11:17 AM [...] Documents on File Type Date Recorded Patient Health Officer Expl anation Advance Directive(s) 04/26/2023 5:37 AM [...] Documents on File Type Date Recorded Patient Health Officer Expl anation Advance Directive(s) 04/26/2023 5:37 AM [...] leos Referred To Contact Alejandra Valle MD [address] [place] [address] Referral ID Status Reason Start Date Expiration Date V isits Requested Visits Authorized [id number] Authorized 02/20/2022 03/22/2023 1 1 Specialty Diagnoses / Procedures Referred By Contac t Referred To Contact [facility] Diagnoses Primary osteoarthritis of left hip Procedures CONSULT TO PHYSICAL THERAPY PHYSICAL THERAPY EVALUATION HIGH COMPLEX 45 MINS Eros Jay PA-C [address] [place] [id number] [facility] [place] [address] [place] [address] Referral ID Status Reason Start Date Expiration Date Visits Requested Visits Authorized [id number] Pending Review Auto-Generat ed Referral 05/09/2023 03/05/2024 1 1 Specialty Diagnoses / Procedures Referred By Contac t Referred To Contact XR IMAGING Diagnoses Primary osteoarthritis of left hip Procedures XR HIP GENERAL 3V PELV/AP/LAT LEFT RADEX HIP UNILATERAL WITH PELVIS 2-3 VIEWS Eros Jay PA-C [address] [place] [address] [facility] [place] [address] Referral ID Status Reason Start Date Expiration Date Visits Requested Visits Authorized [id number] Pending Review Auto-Generat ed Referral 3 04/04/2024 1 1 Specialty Diagnoses / Procedures Referred By Contac t Referred To Contact Anesthesiology Diagnoses Primary osteoarthritis of left hip Procedures CONSULT TO ANESTHESIOLOGY OFFICE/OUTPATIENT NEW HIGH MDM 60-74 MINUTES Eros Jay PA-C [address] [place] [address] Referral ID Status Reason Start Date Expiration Date Visits Requested Visits Authorized [id number] Pending Review PCP Requested Referral 3 03/05/2024 1 1 Specialty Diagnoses / Procedures Referred By Contac t Referred To Contact [facility] Diagnoses Primary osteoarthritis of left hip Procedures ECG COMPLETE ECG ROUTINE ECG W/LEAST 12 LDS W/I&R Eros Jay PA-C [address] [place] [address] [facility] [place] [address] [place] [address] Referral ID Status Reason Start Date Expiration Date Visits Requested Visits Authorized [id number] Pending Review Auto-Generat ed Referral 3 03/05/2024 [...] or prosecute any alcohol or drug abuse patient.[facility] the event this information is protected by the Federal Confidentiality of Alcohol and Drug Abuse Patient Records regulations: The Federal rules restrict any use of the information to criminally investigate or prosecute any alcohol or drug abuse patient.[facility] the event this information is protected by the Federal Confidentiality of Alcohol and Drug Abuse Patient Records regulations: The Federal rules restrict any use of the information to criminally investigate or prosecute any alcohol or drug abuse patient.[facility] the event this information is protected by the Federal Confidentiality of Alcohol and Drug Abuse Patient Records regulations: The Federal rules restrict any use of the information to criminally investigate or prosecute any alcohol or drug abuse patient.[facility] the event this information is protected by the Federal Confidentiality of Alcohol and Drug Abuse Patient Records regulations: The Federal rules restrict any use of the information to criminally investigate or prosecute any alcohol or drug abuse patient.[facility] the event this information is protected by the Federal Confidentiality of Alcohol and Drug Abuse Patient Records regulations: The Federal rules restrict any use of the information to criminally investigate or prosecute any alcohol or drug abuse patient.[facility] the event this information is protected by the Federal Confidentiality of Alcohol and Drug Abuse Patient Records regulations: The Federal rules restrict any use of the information to criminally investigate or prosecute any alcohol or drug abuse patient.[facility] the event this information is protected by the Federal Confidentiality of Alcohol and Drug Abuse Patient Records regulations: The Federal rules restrict any use of the information to criminally investigate or prosecute any alcohol or drug abuse patient.[facility] the event this information is protected by the Federal Confidentiality of Alcohol and Drug Abuse Patient Records regulations: The Federal rules restrict any use of the information to criminally investigate or prosecute any alcohol or drug abuse patient.[facility] the event this information is protected by the Federal Confidentiality of Alcohol and Drug Abuse Patient Records regulations: The Federal rules restrict any use of the information to criminally investigate or prosecute any alcohol or drug abuse patient.[facility] the event this information is protected by the Federal Confidentiality of Alcohol and Drug Abuse Patient Records regulations: The Federal rules restrict any use of the information to criminally investigate or prosecute any alcohol or drug abuse patient.[facility] the event this information is protected by the Federal Confidentiality of Alcohol and Drug Abuse Patient Records regulations: The Federal rules restrict any use of the information to criminally investigate or prosecute any alcohol or drug abuse patient.[facility]In the event this information is protected by the Federal Confidentiality of Alcohol and Drug Abuse Patient Records regulations: The Federal rules restrict any use of the information to criminally investigate or prosecute any alcohol or drug abuse patient.[facility] the event this information is protected by the Federal Confidentiality of Alcohol and Drug Abuse Patient Records regulations: The Federal rules restrict any use of the information to criminally investigate or prosecute any alcohol or drug abuse patient.[facility] the event this information is protected by the Federal Confidentiality of Alcohol and Drug Abuse Patient Records regulations: The Federal rules restrict any use of the information to criminally investigate or prosecute any alcohol or drug abuse patient.[facility]In the event this information is protected by the Federal Confidentiality of Alcohol and Drug Abuse Patient Records regulations: The Federal rules restrict any use of the information to criminally investigate or prosecute any alcohol or drug abuse patient.[facility]In the event this information is protected by the Federal Confidentiality of Alcohol and Drug Abuse Patient Records regulations: The Federal rules restrict any use of the information to criminally investigate or prosecute any alcohol or drug abuse patient.[facility] the event this information is protected by the Federal Confidentiality of Alcohol and Drug Abuse Patient Records regulations: The Federal rules restrict any use of the information to criminally investigate or prosecute any alcohol or drug abuse patient.[facility] HospitalIn the event this information is protected by the Federal Confidentiality of Alcohol and Drug Abuse Patient Records regulations: The Federal rules restrict any use of the information to criminally investigate or prosecute any alcohol or drug abuse patient.[facility] HospitalIn the event this information is protected by the Federal Confidentiality of Alcohol and Drug Abuse Patient Records regulations: The Federal rules restrict any use of the information to criminally investigate or prosecute any alcohol or drug abuse patient.[facility] HospitalIn the event this information is protected by the Federal Confidentiality of Alcohol and Drug Abuse Patient Records regulations: The Federal rules restrict any use of the information to criminally investigate or prosecute any alcohol or drug abuse patient.[facility] HospitalIn the event this information is protected by the Federal Confidentiality of Alcohol and Drug Abuse Patient Records regulations: The Federal rules restrict any use of the information to criminally investigate or prosecute any alcohol or drug abuse patient.[facility] HospitalIn the event this information is protected by the Federal Confidentiality of Alcohol and Drug Abuse Patient Records regulations: The Federal rules restrict any use of the information to criminally investigate or prosecute any alcohol or drug abuse patient.[facility] HospitalIn the event this information is protected by the Federal Confidentiality of Alcohol and Drug Abuse Patient Records regulations: The Federal rules restrict any use of the information to criminally investigate or prosecute any alcohol or drug abuse patient.[facility] HospitalIn the event this information is protected by the Federal Confidentiality of Alcohol and Drug Abuse Patient Records regulations: The Federal rules restrict any use of the information to criminally investigate or prosecute any alcohol or drug abuse patient.[facility] HospitalIn the event this information is protected by the Federal Confidentiality of Alcohol and Drug Abuse Patient Records regulations: The Federal rules restrict any use of the information to criminally investigate or prosecute any alcohol or drug abuse patient.[facility] HospitalIn the event this information is protected by the Federal Confidentiality of Alcohol and Drug Abuse Patient Records regulations: The Federal rules restrict any use of the information to criminally investigate or prosecute any alcohol or drug abuse patient.[facility] HospitalIn the event this information is protected by the Federal Confidentiality of Alcohol and Drug Abuse Patient Records regulations: The Federal rules restrict any use of the information to criminally investigate or prosecute any alcohol or drug abuse patient.[facility] HospitalIn the event this information is protected by the Federal Confidentiality of Alcohol and Drug Abuse Patient Records regulations: The Federal rules restrict any use of the information to criminally investigate or prosecute any alcohol or drug abuse patient.[facility] HospitalIn the event this information is protected by the Federal Confidentiality of Alcohol and Drug Abuse Patient Records regulations: The Federal rules restrict any use of the information to criminally investigate or prosecute any alcohol or drug abuse patient.[facility] HospitalIn the event this information is protected by the Federal Confidentiality of Alcohol and Drug Abuse Patient Records regulations: The Federal rules restrict any use of the information to criminally investigate or prosecute any alcohol or drug abuse patient.[facility] HospitalIn the event this information is protected by the Federal Confidentiality of Alcohol and Drug Abuse Patient Records regulations: The Federal rules restrict any use of the information to criminally investigate or prosecute any alcohol or drug abuse patient.[facility] HospitalIn the event this information is protected by the Federal Confidentiality of Alcohol and Drug Abuse Patient Records regulations: The Federal rules restrict any use of the information to criminally investigate or prosecute any alcohol or drug abuse patient.[facility] HospitalIn the event this information is protected by the Federal Confidentiality of Alcohol and Drug Abuse Patient Records regulations: The Federal rules restrict any use of the information to criminally investigate or prosecute any alcohol or drug abuse patient.[facility] HospitalIn the event this information is protected by the Federal Confidentiality of Alcohol and Drug Abuse Patient Records regulations: The Federal rules restrict any use of the information to criminally investigate or prosecute any alcohol or drug abuse patient.[facility] HospitalIn the event this information is protected by the Federal Confidentiality of Alcohol and Drug Abuse Patient Records regulations: The Federal rules restrict any use of the information to criminally investigate or prosecute any alcohol or drug abuse patient.[facility] HospitalIn the event this information is protected by the Federal Confidentiality of Alcohol and Drug Abuse Patient Records regulations: The Federal rules restrict any use of the information to criminally investigate or prosecute any alcohol or drug abuse patient.[facility] HospitalIn the event this information is protected by the Federal Confidentiality of Alcohol and Drug Abuse Patient Records regulations: The Federal rules restrict any use of the information to criminally investigate or prosecute any alcohol or drug abuse patient.[facility] HospitalIn the event this information is protected by the Federal Confidentiality of Alcohol and Drug Abuse Patient Records regulations: The Federal rules restrict any use of the information to criminally investigate or prosecute any alcohol or drug abuse patient.[facility] HospitalIn the event this information is protected by the Federal Confidentiality of Alcohol and Drug Abuse Patient Records regulations: The Federal rules restrict any use of the information to criminally investigate or prosecute any alcohol or drug abuse patient.[facility] HospitalIn the event this information is protected by the Federal Confidentiality of Alcohol and Drug Abuse Patient Records regulations: The Federal rules restrict any use of the information to criminally investigate or prosecute any alcohol or drug abuse patient.[facility] HospitalIn the event this information is protected by the Federal Confidentiality of Alcohol and Drug Abuse Patient Records regulations: The Federal rules restrict any use of the information to criminally investigate or prosecute any alcohol or drug abuse patient.[facility] HospitalIn the event this information is protected by the Federal Confidentiality of Alcohol and Drug Abuse Patient Records regulations: The Federal rules restrict any use of the information to criminally investigate or prosecute any alcohol or drug abuse patient.[facility] HospitalIn the event this information is protected by the Federal Confidentiality of Alcohol and Drug Abuse Patient Records regulations: The Federal rules restrict any use of the information to criminally investigate or prosecute any alcohol or drug abuse patient.[facility] HospitalIn the event this information is protected by the Federal Confidentiality of Alcohol and Drug Abuse Patient Records regulations: The Federal rules restrict any use of the information to criminally investigate or prosecute any alcohol or drug abuse patient.[facility] HospitalIn the event this information is protected by the Federal Confidentiality of Alcohol and Drug Abuse Patient Records regulations: The Federal rules restrict any use of the information to criminally investigate or prosecute any alcohol or drug abuse patient.[facility] the event this information is protected by the Federal Confidentiality of Alcohol and Drug Abuse Patient Records regulations: The Federal rules restrict any use of the information to criminally investigate or prosecute any alcohol or drug abuse patient.[facility] HospitalIn the event this information is protected by the Federal Confidentiality of Alcohol and Drug Abuse Patient Records regulations: The Federal rules restrict any use of the information to criminally investigate or prosecute any alcohol or drug abuse patient.[facility] HospitalIn the event this information is protected by the Federal Confidentiality of Alcohol and Drug Abuse Patient Records regulations: The Federal rules restrict any use of the information to criminally investigate or prosecute any alcohol or drug abuse patient.[facility] HospitalIn the event this information is protected by the Federal Confidentiality of Alcohol and Drug Abuse Patient Records regulations: The Federal rules restrict any use of the information to criminally investigate or prosecute any alcohol or drug abuse patient.[facility] HospitalIn the event this information is protected by the Federal Confidentiality of Alcohol and Drug Abuse Patient Records regulations: The Federal rules restrict any use of the information to criminally investigate or prosecute any alcohol or drug abuse patient.[facility] HospitalIn the event this information is protected by the Federal Confidentiality of Alcohol and Drug Abuse Patient Records regulations: The Federal rules restrict any use of the information to criminally investigate or prosecute any alcohol or drug abuse patient.[facility] HospitalIn the event this information is protected by the Federal Confidentiality of Alcohol and Drug Abuse Patient Records regulations: The Federal rules restrict any use of the information to criminally investigate or prosecute any alcohol or drug abuse patient.[facility] HospitalIn the event this information is protected by the Federal Confidentiality of Alcohol and Drug Abuse Patient Records regulations: The Federal rules restrict any use of the information to criminally investigate or prosecute any alcohol or drug abuse patient.[facility] HospitalIn the event this information is protected by the Federal Confidentiality of Alcohol and Drug Abuse Patient Records regulations: The Federal rules restrict any use of the information to criminally investigate or prosecute any alcohol or drug abuse patient.[facility] HospitalIn the event this information is protected by the Federal Confidentiality of Alcohol and Drug Abuse Patient Records regulations: The Federal rules restrict any use of the information to criminally investigate or prosecute any alcohol or drug abuse patient.[facility] HospitalIn the event this information is protected by the Federal Confidentiality of Alcohol and Drug Abuse Patient Records regulations: The Federal rules restrict any use of the information to criminally investigate or prosecute any alcohol or drug abuse patient.[facility] HospitalIn the event this information is protected by the Federal Confidentiality of Alcohol and Drug Abuse Patient Records regulations: The Federal rules restrict any use of the information to criminally investigate or prosecute any alcohol or drug abuse patient.[facility] HospitalIn the event this information is protected by the Federal Confidentiality of Alcohol and Drug Abuse Patient Records regulations: The Federal rules restrict any use of the information to criminally investigate or prosecute any alcohol or drug abuse patient.[facility] HospitalIn the event this information is protected by the Federal Confidentiality of Alcohol and Drug Abuse Patient Records regulations: The Federal rules restrict any use of the information to criminally investigate or prosecute any alcohol or drug abuse patient.[facility] HospitalIn the event this information is protected by the Federal Confidentiality of Alcohol and Drug Abuse Patient Records regulations: The Federal rules restrict any use of the information to criminally investigate or prosecute any alcohol or drug abuse patient.[facility] HospitalIn the event this information is protected by the Federal Confidentiality of Alcohol and Drug Abuse Patient Records regulations: The Federal rules restrict any use of the information to criminally investigate or prosecute any alcohol or drug abuse patient.[facility] HospitalIn the event this information is protected by the Federal Confidentiality of Alcohol and Drug Abuse Patient Records regulations: The Federal rules restrict any use of the information to criminally investigate or prosecute any alcohol or drug abuse patient.[facility] HospitalIn the event this information is protected by the Federal Confidentiality of Alcohol and Drug Abuse Patient Records regulations: The Federal rules restrict any use of the information to criminally investigate or prosecute any alcohol or drug abuse patient.[facility] HospitalIn the event this information is protected by the Federal Confidentiality of Alcohol and Drug Abuse Patient Records regulations: The Federal rules restrict any use of the information to criminally investigate or prosecute any alcohol or drug abuse patient.[facility] Reason for Visit (unrecogniz ed section and content) Specialty Diagnoses / Procedures Referred By Contac t Referred To Contact ADMITTING Diagnoses Stenosis of left carotid artery Preop testing Procedures TCAT IV STENT CRV CRTD ART EMBOLIC PROTECJ PERC TRANSCATH PLACEMENT INTRAVASCULAR STENT(S) CERV CAROTID ARTERY INCLUDING ANGIOPLASTY WHEN PERFORMED AND RAD S&I W/DISTAL EMBOLIC PROTECTION [facility] [address] [place] [address] Referral ID Status Reason Start Date Expiration Date Visits Re quested Visits Authorized [id number] 1 Reason Comments 6 Month Exam [...] Reason Comments Rash all over x 09/06 ustristian g kenalog cream, dx with shingles on [...] UNILATERAL WITH PELVIS 2-3 VIEWS Eros Jay, [facility] [address] [place] [address] [place] [address] Referral ID Status Reason Start Date Expiration Date V isits Requested Visits Authorized [id number] Closed Auto-Generate d Referral 12/22/2022 01/21/2024 1 [...] Contact [facility] [address] [place] [id number] Referral ID Status Reason Start Date Expiration Date Visits Re quested Visits Authorized [id number] 1 1 Care Teams (unrecognized sec tion and content) Books Salesperson Relationship Specialty Start Date End Date Alejandra Valle MD [address] [place] [address] PCP - General 08/26/08 Dixie Shin MD [address] [facility] [address] Home Care Physician Orthopedics 01/16/20 Dixie Shin MD [address] [place] [address] Referring Orthopedics 01/16/20 Cecelia Pavon, PT [address] [place] [address] Underwriting Clerk Post Acute Care 01/18/20 Books Salesperson Relationship Specialty Start Date End Date Alejandra Valle MD [address] [place] [address] PCP - General 08/26/08 Dixie Shin MD [address] [facility] [address] Home Care Physician Orthopedics 01/16/20 Dixie Shin MD [address] [facility] [address] Referring Orthopedics 01/16/20 Cecelia Pavon, PT [address] [place] [address] Underwriting Clerk Post Acute Care 01/18/20 Books Salesperson Relationship Specialty Start Date End Date Alejandra Valle MD [address] [place] [address] PCP - General 08/26/08 Dixie Shin MD [address] [facility] [address] Home Care Physician Orthopedics 01/16/20 Dixie Shin MD [address] [place] [address] Referring Orthopedics 01/16/20 Cecelia Pavon, PT [address] [place] [address] Underwriting Clerk Post Acute Care 01/18/20 Books Salesperson Relationship Specialty Start Date End Date Alejandra Valle MD [address] [place] [address] PCP - General 08/26/08 Dixie Shin MD [address] [place] [address] Home Care Physician Orthopedics 01/16/20 Dixie Shin MD [address] [place] [address] Referring Orthopedics 01/16/20 Cecelia Pavon, PT [address] [place] [address] Underwriting Clerk Post Acute Care 01/18/20 Books Salesperson Relationship Specialty Start Date End Date Alejandra Valle MD [address] [place] [address] PCP - General 08/26/08 Dixie Shin MD [address] [place] [address] Home Care Physician Orthopedics 01/16/20 Dixie Shin MD [address] [place] [address] Referring Orthopedics 01/16/20 Cecelia Pavon, PT [address] [place] [address] Underwriting Clerk Post Acute Care 01/18/20 Books Salesperson Relationship Specialty Start Date End Date Alejandra Valle MD [address] [place] [address] PCP - General 08/26/08 Dixie Shin MD [address] [place] [address] Home Care Physician Orthopedics 01/16/20 Dixie Shin MD [address] [place] [address] Referring Orthopedics 01/16/20 Cecelia Pavon, PT [address] [place] [address] Underwriting Clerk Post Acute Care 01/18/20 Books Salesperson Relationship Specialty Start Date End Date Alejandra Valle MD [address] [place] [address] PCP - General 08/26/08 Dixie Shin MD [address] [place] [address] Home Care Physician Orthopedics 01/16/20 Dixie Shin MD [address] [place] [address] Referring Orthopedics 01/16/20 Cecelia Pavon, PT [address] [place] [address] Underwriting Clerk Post Acute Care 01/18/20 Books Salesperson Relationship Specialty Start Date End Date Alejandra Valle MD [address] [place] [address] PCP - General 08/26/08 Dixie Shin MD [address] [place] [address] Home Care Physician Orthopedics 01/16/20 Dixie Shin MD [address] [place] [address] Referring Orthopedics 01/16/20 Cecelia Pavon, PT [address] [facility] [place] [address] Underwriting Clerk Post Acute Care 01/18/20 Books Salesperson Relationship Specialty Start Date End Date Alejandra Valle MD [address] [facility] [place] [address] PCP - General 08/26/08 Dixie Shin MD [address] [place] [address] Home Care Physician Orthopedics 01/16/20 Dixie Shin MD [address] [facility] [address] Referring Orthopedics 01/16/20 Cecelia Pavon, PT [address] [place] [address] Underwriting Clerk Post Acute Care 01/18/20 Books Salesperson Relationship Specialty Start Date End Date Alejandra Valle MD [address] [facility] [place] [address] PCP - General 08/26/08 Dixie Shin MD [address] [facility] [address] Home Care Physician Orthopedics 01/16/20 Dixie Shin MD [address] [place] [address] Referring Orthopedics 01/16/20 Cecelia Pavon, PT [address] [facility] [place] [address] Underwriting Clerk Post Acute Care 01/18/20 Books Salesperson Relationship Specialty Start Date End Date Alejandra Valle MD [address] [place] [address] PCP - General 08/26/08 Dixie Shin MD [address] [place] [address] Home Care Physician Orthopedics 01/16/20 Dixie Shin MD [address] [place] [address] Referring Orthopedics 01/16/20 Cecelia Pavon, PT [address] [place] [address] Underwriting Clerk Post Acute Care 01/18/20 Radha Carrizales RN [address] [place] [address] Testing Specialist 10/18/21 Books Salesperson Relationship Specialty Start Date End Date Alejandra Valle MD [address] [place] [address] PCP - General 08/26/08 Dixie Shin MD [address] [place] [address] Home Care Physician Orthopedics 01/16/20 Dixie Shin MD [address] [place] [address] Referring Orthopedics 01/16/20 Cecelia Pavon, PT [address] [place] [address] Underwriting Clerk Post Acute Care 01/18/20 Radha Carrizales, DESTINEE [address] [place] [address] Testing Specialist 10/18/21 Books Salesperson Relationship Specialty Start Date End Date Alejandra Valle MD [address] [place] [address] PCP - General 08/26/08 Dixie Shin MD [address] [place] [address] Home Care Provider Orthopedics 01/16/20 Dixie Shin MD [address] [place] [address] Referring Orthopedics 01/16/20 Cecelia Pavon, PT [address] [place] [address] Underwriting Clerk Post Acute Care 01/18/20 Radha Carrizales, RN [address] [place] [address] Testing Specialist 10/18/21 Books Salesperson Relationship Specialty Start Date End Date Alejandra Valle MD [address] [place] [address] PCP - General 08/26/08 Dixie Shin MD [address] [place] [address] Home Care Provider Orthopedics 01/16/20 Dixie Shin MD [address] [place] [address] Referring Orthopedics 01/16/20 Cecelia Pavon, PT [address] [place] [address] Underwriting Clerk Post Acute Care 01/18/20 Radha Carrizales, RN [address] [place], [place] [id number] Testing Specialist 10/18/21 Books Salesperson Relationship Specialty Start Date End Date Alejandra Valle MD [address] [place] [address] PCP - General 08/26/08 Dixie Shin MD [address] [place] [address] Home Care Provider Orthopedics 01/16/20 Dixie Shin MD [address] [place] [address] Referring Orthopedics 01/16/20 Cecelia Pavon, PT [address] [place] [address] Underwriting Clerk Post Acute Care 01/18/20 Radha Carrizales, RN [address] [place] [address] Testing Specialist 10/18/21 Books Salesperson Relationship Specialty Start Date End Date Alejandra Valle MD [address] [place] [address] PCP - General 08/26/08 Dixie Shin MD [address] [place] [address] Home Care Provider Orthopedics 01/16/20 Dixie Shin MD [address] [place] [address] Referring Orthopedics 01/16/20 Cecelia Pavon, PT [address] [place] [address] Underwriting Clerk Post Acute Care 01/18/20 Radha Carrizales RN [address] [place] [address] Testing Specialist 10/18/21 Books Salesperson Relationship Specialty Start Date End Date Alejandra Valle MD [address] [place] [address] PCP - General 08/26/08 Dixie Shin MD [address] [place] [address] Home Care Provider Orthopedics 01/16/20 Dixie Shin MD [address] [place] [address] Referring Orthopedics 01/16/20 Cecelia Pavon, PT [address] [place] [address] Underwriting Clerk Post Acute Care 01/18/20 Radha Carrizales RN [address] [place] [address] Testing Specialist 10/18/21 Books Salesperson Relationship Specialty Start Date End Date Alejandra Valle MD [address] [place] [address] PCP - General 08/26/08 Dixie Shin MD [address] [place] [address] Home Care Provider Orthopedics 01/16/20 Dixie Shin MD [address] [place] [address] Referring Orthopedics 01/16/20 Cecelia Pavon, PT [address] [place] [address] Underwriting Clerk Post Acute Care 01/18/20 Radha Carrizales RN [address] [place] [address] Testing Specialist 10/18/21 Books Salesperson Relationship Specialty Start Date End Date Alejandra Valle MD [address] [place] [address] PCP - General 08/26/08 Dixie Shin MD [address] [place] [address] Home Care Provider Orthopedics 01/16/20 Dixie Shin MD [address] [place] [address] Referring Orthopedics 01/16/20 Cecelia Pavon, PT [address] [place] [address] Underwriting Clerk Post Acute Care 01/18/20 Radha Carrizales, RN [address] [place] [address] Testing Specialist 10/18/21 Books Salesperson Relationship Specialty Start Date End Date Alejandra Valle MD [address] [facility] [place] [address] PCP - General 08/26/08 Dixie Shin MD [address] [place] [address] Home Care Provider Orthopedics 01/16/20 Dixie Shin MD [address] [place] [address] Referring Orthopedics 01/16/20 Cecelia Pavon, PT [address] [place] [address] Underwriting Clerk Post Acute Care 01/18/20 Tameka Arriola, floral designerTesting Specialist 04/27/22 Books Salesperson Relationship Specialty Start Date End Date Alejandra Valle MD [address] [place] [address] PCP - General 08/26/08 Dixie Shin MD [address] [place] [address] Home Care Provider Orthopedics 01/16/20 Dixie Shin MD [address] [place] [address] Referring Orthopedics 01/16/20 Cecelia Pavon, PT [address] [place] [address] Underwriting Clerk Post Acute Care 01/18/20 Tameka Arriola, floral designerTesting Specialist 04/27/22 Books Salesperson Relationship Specialty Start Date End Date Alejandra Valle MD [address] [facility] [place] [address] PCP - General 08/26/08 Dixie Shin MD [address] [place] [address] Home Care Provider Orthopedics 01/16/20 Dixie Shin MD [address] [place] [address] Referring Orthopedics 01/16/20 Cecelia Pavon, PT [address] [place] [address] Underwriting Clerk Post Acute Care 01/18/20 Tameka Arriola, floral designerTesting Specialist 04/27/22 Books Salesperson Relationship Specialty Start Date End Date Alejandra Valle MD [address] [facility] [place] [address] PCP - General 08/26/08 Dixie Shin MD [address] [place] [address] Home Care Provider Orthopedics 01/16/20 Dixie Shin MD [address] [facility] [place] [address] Referring Orthopedics 01/16/20 Cecelia Pavon, PT [address] [place] [address] Underwriting Clerk Post Acute Care 01/18/20 Tameka Arriola, floral designerTesting Specialist 04/27/22 Books Salesperson Relationship Specialty Start Date End Date Alejandra Valle MD [address] [facility] [place] [address] PCP - General 08/26/08 Dixie Shin MD [address] [place] [address] Home Care Provider Orthopedics 01/16/20 Dixie Shin MD [address] [place] [address] Referring Orthopedics 01/16/20 Cecelia Pavon, PT [address] [place] [address] Underwriting Clerk Post Acute Care 01/18/20 Tameka Arriola, floral designerTesting Specialist 04/27/22 Books Salesperson Relationship Specialty Start Date End Date Alejandra Valle MD [address] [place] [address] PCP - General 08/26/08 Dixie Shin MD [address] [place] [address] Home Care Provider Orthopedics 01/16/20 Dixie Shin MD [address] [place] [address] Referring Orthopedics 01/16/20 Cecelia Pavon, PT [address] [place] [address] Underwriting Clerk Post Acute Care 01/18/20 Ashley Garcia, RN [address] [place] [address] Testing Specialist 08/30/22 Books Salesperson Relationship Specialty Start Date End Date Alejandra Valle MD [address] [place] [address] PCP - General 08/26/08 Dixie Shin MD [address] [place] [address] Home Care Provider Orthopedics 01/16/20 Dixie Shin MD [address] [place] [address] Referring Orthopedics 01/16/20 Cecelia Pavon, PT [address] [place] [address] Underwriting Clerk Post Acute Care 01/18/20 Ashley Garcia RN [address] [place] [address] Testing Specialist 08/30/22 Books Salesperson Relationship Specialty Start Date End Date Alejandra Valle MD [address] [place], [place] [id number] PCP - General 08/26/08 Dixie Shin MD [address] [place] [address] Home Care Provider Orthopedics 01/16/20 Dixie Shin MD [address] [place] [address] Referring Orthopedics 01/16/20 Cecelia Pavon, PT [address] [place] [address] Underwriting Clerk Post Acute Care 01/18/20 Ashley Garcia RN [address] [place] [address] Testing Specialist 08/30/22 Books Salesperson Relationship Specialty Start Date End Date Alejandra Valle MD [address] [place], [place] [address]281 PCP - General 08/26/08 Dixie Shin MD [address] [place] [address] Home Care Provider Orthopedics 01/16/20 Dixie Shin MD [address] [place] [address] Referring Orthopedics 01/16/20 Cecelia Pavon, PT [address] [place] [address] Underwriting Clerk Post Acute Care 01/18/20 Ashley Garcia RN [address] [place] [address] Testing Specialist 08/30/22 Books Salesperson Relationship Specialty Start Date End Date Alejandra Valle MD [address] [place], [place] [address] PCP - General 08/26/08 Dixie Shin MD [address] [place] [address] Home Care Provider Orthopedics 01/16/20 Dixie Shin MD [address] [place] [address] Referring Orthopedics 01/16/20 Cecelia Pavon, PT [address] [place] [address] Underwriting Clerk Post Acute Care 01/18/20 Ashley Garcia RN [address] [place] [address] Testing Specialist 08/30/22 Books Salesperson Relationship Specialty Start Date End Date Alejandra Valle MD [address] [place] [address] PCP - General 08/26/08 Dixie Shin MD [address] [place] [address] Home Care Provider Orthopedics 01/16/20 Dixie Shin MD [address] [place] [address] Referring Orthopedics 01/16/20 Cecelia Pavon, PT [address] [place] [address] Underwriting Clerk Post Acute Care 01/18/20 Ashley Garcia, DESTINEE [address] [place] [address] Testing Specialist 08/30/22 Books Salesperson Relationship Specialty Start Date End Date Alejandra Valle MD [address] [place] [address] PCP - General 08/26/08 Dixie Shin MD [address] [place] [address] Home Care Provider Orthopedics 01/16/20 Dixie Shin MD [address] [place] [address] Referring Orthopedics 01/16/20 Cecelia Pavon, PT [address] [place] [address] Underwriting Clerk Post Acute Care 01/18/20 Ashley Garcia RN [address] [place] [address] Testing Specialist 08/30/22 Books Salesperson Relationship Specialty Start Date End Date Alejandra Valle MD [address] [place] [address] PCP - General 08/26/08 Dixie Shin MD [address] [place] [address] Home Care Provider Orthopedics 01/16/20 Dixie Shin MD [address] [place] [address] Referring Orthopedics 01/16/20 Cecelia Pavon, PT [address] [place] [address] Underwriting Clerk Post Acute Care 01/18/20 Ashley Garcia RN [address] [place] [address] Testing Specialist 08/30/22 Books Salesperson Relationship Specialty Start Date End Date Alejandra Valle MD [address] [place], [place] [address]31 PCP - General 08/26/08 Dixie Shin MD [address] [place] [address] Home Care Provider Orthopedics 01/16/20 Dixie Shin MD [address] [place] [address] Referring Orthopedics 01/16/20 Cecelia Pavon, PT [address] [place] [address] Underwriting Clerk Post Acute Care 01/18/20 Ashley Garcia RN [address] [place] [address] Testing Specialist 08/30/22 Books Salesperson Relationship Specialty Start Date End Date Alejandra Valle MD [address] [place] [address] PCP - General 08/26/08 Dixie Shin MD [address] [place] [address] Home Care Provider Orthopedics 01/16/20 Dixie Shin MD [address] [place] [address] Referring Orthopedics 01/16/20 Cecelia Pavon, PT [address] [place] [address] Underwriting Clerk Post Acute Care 01/18/20 Ashley Garcia, DESTINEE [address] [place] [address] Testing Specialist 08/30/22 Books Salesperson Relationship Specialty Start Date End Date Alejandra Valle MD [address] [place], [place] [address] PCP - General 08/26/08 Dixie Shin MD [address] [place] [address] Home Care Provider Orthopedics 01/16/20 Dixie Shin MD [address] [place] [address] Referring Orthopedics 01/16/20 Ceeclia Pavon, PT [address] [place] [address] Underwriting Clerk Post Acute Care 01/18/20 Tameka Arriola, floral designerTesting Specialist 04/27/22 08/29/22 Books Salesperson Relationship Specialty Start Date End Date Alejandra Valle MD [address] [place] [address] PCP - General 08/26/08 Dixie Shin MD [address] [place] [address] Home Care Provider Orthopedics 01/16/20 Dixie Shin MD [address] [place] [address] Referring Orthopedics 01/16/20 Cecelia Pavon, PT [address] [place] [address] Underwriting Clerk Post Acute Care 01/18/20 Ashley Garcia, DESTINEE [address] [place] [address] Testing Specialist 08/30/22 Books Salesperson Relationship Specialty Start Date End Date Alejandra Valle MD [address] [place], [place] [id number] PCP - General 08/26/08 Dixie Shin MD [address] [place] [address] Home Care Provider Orthopedics 01/16/20 Dixie Shin MD [address] [place] [address] Referring Orthopedics 01/16/20 Cecelia Pavon, PT [address] [place] [address] Underwriting Clerk Post Acute Care 01/18/20 Ashley Gracia RN [address] [place] [address] Testing Specialist 08/30/22 Books Salesperson Relationship Specialty Start Date End Date Alejandra Valle MD [address] [place], [place] [id number] PCP - General 08/26/08 Dixie Shin MD [address] [place] [address] Home Care Provider Orthopedics 01/16/20 Dixie Shin MD [address] [place] [address] Referring Orthopedics 01/16/20 Cecelia Pavon, PT [address] [place] [address] Underwriting Clerk Post Acute Care 01/18/20 Ashley Garcia RN [address] [place] [address] Testing Specialist 08/30/22 Books Salesperson Relationship Specialty Start Date End Date Alejandra Valle MD [address] [place], [place] [id number] PCP - General 08/26/08 Dixie Shin MD [address] [place] [address] Home Care Provider Orthopedics 01/16/20 Dixie Shin MD [address] [facility] [place] [address] Referring Orthopedics 01/16/20 Cecelia Pavon, PT [address] [place] [address] Underwriting Clerk Post Acute Care 01/18/20 Ashley Garcia RN [address] [place], [place] [id number] Testing Specialist 08/30/22 Books Salesperson Relationship Specialty Start Date End Date Alejandra Valle MD [address] [place], [place] [id number] PCP - General 08/26/08 Ashley Garcia, DESTINEE [address] [place] [address] Testing Specialist 08/30/22 Dixie Shin MD [address] [place] [address] Home Care Provider Orthopedics 04/26/23 Books Salesperson Relationship Specialty Start Date End Date Alejandra Valle MD [address] [place] [address] PCP - General 08/26/08 Ashley Garcia RN [address] [place] [address] Testing Specialist 08/30/22 Dixie Shin MD [address] [place] [address] Home Care Provider Orthopedics 04/26/23 Javier Demarco PA-C [address] [place] [address] Referring Orthopedics 04/27/23 Lisseth Pelletier, PT [address] [place] [address] Underwriting Clerk Post Acute Care 04/27/23 [place] [address] [place] [address] Home Care Provider Orthopedics 04/30/23 Surya Elliott PA-C [address] [place] [address] Referring Orthopedics 04/30/23 Books Salesperson Relationship Specialty Start Date End Date Alejandra Valle MD [address] [place] [address] PCP - General 08/26/08 Ashley Garcia RN [address] [place] [address] Testing Specialist 08/30/22 Dixie Shin MD [address] [place] [address] Home Care Provider Orthopedics 04/26/23 Javier Demarco PA-C [address] [place] [address] Referring Orthopedics 04/27/23 Lisseth Pelletier, PT [address] [place] [address] Underwriting Clerk Post Acute Care 04/27/23 [place] [address] [place] [address] Home Care Provider Orthopedics 04/30/23 Surya Elliott PA-C [address] [place], [place] [id number] Referring Orthopedics 04/30/23 Books Salesperson Relationship Specialty Start Date End Date Alejandra Valle MD [address] [place] [address] PCP - General 08/26/08 Ashley Garcia RN [address] [place] [address] Testing Specialist 08/30/22 Dixie Shin MD [address] [place] [address] Home Care Provider Orthopedics 04/26/23 Javier Demarco PA-C [address] [place] [address] Referring Orthopedics 04/27/23 Lisseth Pelletier, PT [address] [place] [address] Underwriting Clerk Post Acute Care 04/27/23 [place] [address] [place] [address] Home Care Provider Orthopedics 04/30/23 Surya Elliott PA-C [address] [place] [address] Referring Orthopedics 04/30/23 Books Salesperson Relationship Specialty Start Date End Date Alejandra Valle MD [address] [place], [place] [id number] PCP - General 08/26/08 Ashley Garcia, RN [address] [place] [address] Testing Specialist 08/30/22 Dixie Shin MD [address] [place] [address] Home Care Provider Orthopedics 04/26/23 Javier Demarco PA-C [address] [place] [address] Referring Orthopedics 04/27/23 Lisseth Pelletier, PT [address] [place] [address] Underwriting Clerk Post Acute Care 04/27/23 [place] [address] [place] [address] Home Care Provider Orthopedics 04/30/23 Surya Elliott PA-C [address] [place], [place] [id number] Referring Orthopedics 04/30/23 Books Salesperson Relationship Specialty Start Date End Date Alejandra Valle MD [address] [place] [address] PCP - General 08/26/08 Ashley Garcia, DESTINEE [address] [place] [address] Testing Specialist 08/30/22 Dixie Shin MD [address] [place] [address] Home Care Provider Orthopedics 04/26/23 Javier Demarco PA-C [address] [place] [address] Referring Orthopedics 04/27/23 Lisseth Pelletier, PT [address] [place] [address] Underwriting Clerk Post Acute Care 04/27/23 [place] [address] [place] [address] Home Care Provider Orthopedics 04/30/23 Surya Elliott PA-C [address] [place], [place] [id number] Referring Orthopedics 2/5/24 INFORMATION SOURCE (unrecogn ized section and content) [...] BE BASED ON THE PRIMARY CLINICAL RECORDS. [facility] [employer] [facility]. provides no warranty or guarantee of the accuracy or completeness of information in this document.
[2023-05-04 18:28] VITALS: BMI 34.7
[2023-05-04 18:59] VITALS: BP 154/55; PULSE 75; RESP 18; TEMP 36.6; O2SAT 100
[2023-05-04] MEDS: Methocarbamol 500 MG Tablet PO (21:06)
[2023-05-04] MEDS: Atorvastatin Calcium 80 MG Tablet PO (21:06)
[2023-05-04] MEDS: Psyllium 1 PACKET PO (21:06)
[2023-05-04] MEDS: Gabapentin 600 MG Tablet PO (21:06)
[2023-05-04] MEDS: Atenolol 100 MG Tablet PO (21:07)
[2023-05-04] MEDS: Senna/Docusate Sodium 1 Tablet 2 TABLET PO (21:07)
[2023-05-04 21:21] VITALS: BP 128/51; PULSE 74; RESP 16; TEMP 36.8; O2SAT 94
[2023-05-04 22:42] VITALS: O2SAT 94
[2023-05-04] MEDS: Acetaminophen 325 MG Tablet 650 MG PO (22:54)
[2023-05-05] MEDS: oxyCODONE 5 MG Tablet PO ×4 (02:05→21:31)
[2023-05-05 03:21] VITALS: BP 118/65; PULSE 71; RESP 16; TEMP 36.9; O2SAT 95
[2023-05-05] MEDS: Psyllium 1 PACKET PO ×3 (06:32→21:32)
[2023-05-05] MEDS: Methocarbamol 500 MG Tablet PO ×3 (06:32→21:32)
[2023-05-05] MEDS: Levothyroxine 137 MCG Tablet PO (06:32)
[2023-05-05 06:57] LABS: Absolute Lymphocyte Count 3.15 X10^3/uL (0.83-4.51); Absolute Neutrophil Count 7.5 X10^3/uL (2.0-7.7); Basophil# 0.11 X10^3/uL; Basophil% 0.8 % (0-1); Eosinophil# 0.51 X10^3/uL; Eosinophils% 3.9 % (0-5); Hematocrit 27.6 % (37-47); Hemoglobin 8.4 g/dL (12.0-15.0); Lymphocyte # 3.15 X10^3/ul (0.83-4.51); Lymphocyte % 24.2 % (19-41); Mean Corp Hgb Conc 30.4 g/dL (32-36); Mean Corpuscular Hgb 27.1 pg (27.0-32.0); Mean Platelet Vol. 9.5 fl (6.2-12.0); Monocyte# 1.11 X10^3/uL; Monocyte% 8.5 % (0-10); NRBC Flagged by Analyzer 0 % (0-5); Neutrophil # 7.52 X10^3/uL (2.7-7.7); Neutrophil % 57.7 % (47-70); Platelet Count 439 K/mm3 (150-450); RBC Distribution Width CV 15.1 % (11.6-14.6); RBC Distribution Width SD 47.4 fl (35.1-43.9); RET-HE 25.9 pg (30-35); Reticulocyte Count 4.86 % (0.5-1.5)
[2023-05-05 07:47] LABS: ALB/GLOB Ratio 0.6 RATIO (0.9-2.4); AST(SGOT) 19 U/L (15-37); Alanine Aminotransfer ALT/SGPT 20 U/L (13-56); Albumin, Serum 2.3 g/dL (3.2-5.0); Alkaline Phosphatase 105 U/L (45-117); Anion Gap 3 (5-15); BUN 15 mg/dL (7-18); BUN/Creat Ratio 15.2 RATIO (10-20); Calcium,Total 9.2 mg/dL (8.5-10.1); Chloride 104 mmol/L (98-107); Creatinine, Serum 0.99 mg/dL (0.55-1.02); EST Glomerular Filtration Rate 58 mL/min (>60); Est Glom Filt Rate - Afr Amer 70 mL/min (>60); Estimated Creatinine Clearance 59.36 ml/min; Ferritin 164 ng/mL (8-252); Globulin 3.7 g/dL (2.2-4.2); Glucose 181 mg/dL (74-106); Iron 33 ug/dL (50-170); Iron Binding Capacity,Total 227 ug/dL (250-450); PERCENT IRON SATURATION 14.5 % (15.0-55.0); Potassium 4.1 mmol/L (3.5-5.1); Sodium Level 140 mmol/L (136-145); Thyroid Stim Hormone (TSH) 6.11 uIU/mL (0.358-3.74)
--- NOTE | 2023-05-05 09:17 | CASEMGMT ---
Met with pt to complete HILL form. HILL form explained to pt who voiced understanding and signed form. Original form placed in pt?s chart and copy provided to pt. Pt states that she is wanting SNF placement after DC. Voice message left to BECKY.
[2023-05-05 09:19] LABS: Hemoglobin A1c 7.4 % (3.8-5.6)
[2023-05-05 10:31] VITALS: BP 149/62; PULSE 73; RESP 18; TEMP 37; O2SAT 98
[2023-05-05] MEDS: hydroCHLOROthiazide 12.5mg 12.5 MG PO (10:37)
[2023-05-05] MEDS: Senna/Docusate Sodium 1 Tablet 2 TABLET PO ×2 (10:37→21:32)
[2023-05-05] MEDS: Atenolol 100 MG Tablet PO ×2 (10:38→21:33)
[2023-05-05] MEDS: Aspirin 325 MG Tablet PO (10:39)
[2023-05-05] MEDS: Clopidogrel Bisulfate 75 MG Tablet PO (10:39)
[2023-05-05] MEDS: Enoxaparin 40 MG/0.4 ML Syringe SC (10:39)
[2023-05-05] MEDS: Tolterodine Tartrate 4 MG CAP.SA PO (10:39)
[2023-05-05] MEDS: Pantoprazole Sodium 20 MG Tablet PO (10:40)
[2023-05-05] MEDS: Gabapentin 600 MG Tablet PO ×2 (10:43→21:31)
--- NOTE | 2023-05-05 12:19 | PN.HOSP_ITS ---
Reason for Visit Reason for Visit: Diagnoses Essential (primary) hypertension (05/04/23) Occlusion and stenosis of left carotid artery (05/04/23) Difficulty in walking, not elsewhere classified (05/04/23) Presence of coronary angioplasty implant and graft (05/04/23) Subjective Subjective Patient admitted yesterday evening for generalized weakness and difficulty walking after her recent hip replacement that was complicated by hip dislocation requiring multiple times to place back into the hip socket. No acute events overnight. Patient seen at bedside this morning. Patient was laying comfortably in bed, conversing normally, no acute distress. Patient reported mild left hip pain this morning at rest, similar to previous days. She had not gotten out of bed yet this morning. Was looking forward to working with physical therapy today. Otherwise denies any acute pain or discomfort. No other acute concerns this time. Objective Data Objective Data Vital Signs: Vital Signs Temp Pulse Resp BP Pulse Ox O2 Del Method 98.6 F 73 18 149/62 H 98 Room Air 05/05/23 10:31 05/05/23 10:31 05/05/23 10:31 05/05/23 10:31 05/05/23 10:31 05/05/23 10:31 Oxygen Delivery Method Room Air Weight: 102.058 kg Body Mass Index (BMI) 34.7 Intake & Output: Intake and Output for Last 24 Hours 05/03/23 05/04/23 05/05/23 23:59 23:59 23:59 Intake Total 975 / 975 Output Total 800 / 800 Balance 175 / 175 Lab / Micro Data 05/05/23 06:33 05/05/23 06:33 Labs: Laboratory Results - last 24 hr 05/04/23 16:35: WBC 15.1 H, RBC 3.21 L, Hgb 8.7 L, Hct 28.7 L, MCV 89.4, MCH 27.1, MCHC 30.3 L, RDW Std Deviation 47.4 H, RDW Coeff of Rachel 14.7 H, Plt Count 479 H, MPV 9.5, Neut % (Auto) Not Reportable, Absolute Neuts (auto) 9.2 H, Absolute Lymphs (auto) 4.09, Total Counted 100, Neutrophils % (Manual) 57, Band Neutrophils % 4, Lymphocytes % (Manual) 27, Monocytes % (Manual) 4, Eosinophils % (Manual) 8 H, Diff Path Review July foll, Hypochromasia 2+, Sodium 138, Potassium 4.1, Chloride 102, Carbon Dioxide 33.0 H, Anion Gap 3 L, BUN 18, Creatinine 1.16 H, Est GFR (MDRD) Af Amer 58 L, Est GFR (MDRD) Non-Af 48 L, BUN/Creatinine Ratio 15.5, Glucose 211 H, Calcium 9.0 05/05/23 06:33: WBC 13.0 H, RBC 3.10 L, Hgb 8.4 L, Hct 27.6 L, MCV 89.0, MCH 27.1, MCHC 30.4 L, RDW Std Deviation 47.4 H, RDW Coeff of Rachel 15.1 H, Plt Count 439, MPV 9.5, Immature Gran % (Auto) 4.900 H, Neut % (Auto) 57.7, Lymph % (Auto) 24.2, Newton % (Auto) 8.5, Eos % (Auto) 3.9, Baso % (Auto) 0.8, Absolute Neuts (auto) 7.5, Absolute Lymphs (auto) 3.15, Nucleated RBC % 0, Retic Count 4.86 H, Immature Retic Fraction 39.40 H, Retic Hgb Equivalent 25.9 L, Sodium 140, Pota ssium 4.1, Chloride 104, Carbon Dioxide 33.0 H, Anion Gap 3 L, BUN 15, Creatinine 0.99, Estim Creat Clear Calc 59.36, Est GFR (MDRD) Af Amer 70, Est GFR (MDRD) Non-Af 58 L, BUN/Creatinine Ratio 15.2, Glucose 181 H, Hemoglobin A1c 7.4 H, Calcium 9.2, Iron 33 L, TIBC 227 L, Iron Saturation 14.5 L, Ferritin 164, Total Bilirubin 1.10 H, AST 19, ALT 20, Alkaline Phosphatase 105, Total Protein 6.0 L, Albumin 2.3 L, Globulin 3.7, Albumin/Globulin Ratio 0.6 L, TSH 6.11 H Physical Exam Const alert, oriented x3 and no apparent distress Constitutional Narrative: Pleasant elderly female, obese, laying comfortably in bed, conversing normally, no acute distress. General Appearance: cooperative and comfortable HEENT normocephalic, head/scalp atraumatic, hearing grossly normal bilaterally, nasal mucous membranes and turbinates normal and moist oral mucous membranes Eyes PERRL, EOMs intact bilaterally and conjunctivae normal Neck full ROM, no lymphadenopathy and supple Lymph Lymphatic: no lymphadenopathy noted Chest inspection of chest normal Resp normal respiratory effort, normal air movement, no use of accessory muscles and clear to auscultation bilaterally Cardio regular rate, regular rhythm, no murmurs and peripheral pulses 2+ throughout GI normal to inspection, nondistended, normoactive bowel sounds, soft to palpation, non-tender and non-distended Back/Spine normal ROM Extremity Extremity Narrative: Large left leg brace in place. No gross abnormalities on visual exam. Skin no rashes or lesions noted Neuro no focal motor deficits and no sensory deficits noted Speech: speech normal Psych mental status grossly normal Assessment & Plan Assessment/Plan (1) Difficulty in walking: (2) Unable to ambulate: PLAN: Plan Patient is a 78-year-old female who presented to [facility] ED on 05/04/2023 with worsening weakness after recent left hip replacement. 1. Acute debility secondary to recent left hip replacement complicated by left hip dislocation ? Had left hip replacement done at [facility] on 04/26. Unfortunately had subsequent dislocation with reduction in OR at 2/3 at [facility]. Home health PT/OT did not feel she was safe at home. PT/OT/case management following. Planning for SNF on discharge, medically ready for discharge on 05/05, awaiting placement. Scheduled Tylenol plus oxycodone 5 mg every 4 hours as needed for pain control. 2. Constipation, improving ? TSH mildly elevated at 6.1 on admit. Continue home Synthroid as noted below. Continue bowel regimen. 3. Mild VAHE, improving ? Creatinine 1.16 on admit, improved to creatinine 0.99 on hospital day 2 after IV fluids. Unclear baseline, last creatinine was 0.83 back in 2019. Suspect patient is close to her baseline. Adequate urine output. Monitor daily BMP and urine output. 4. Anemia, unclear chronicity ? Hemoglobin 8.7 on admit, last known hemoglobin 11.9. Unclear what hemoglobin level was postoperatively. Reports no recent bleeding. Iron studies consistent with mild iron deficiency anemia. Reticulocyte count elevated at 4.8%. Repeat hemoglobin 8.4 on hospital day 2. Will start p.o. iron supplement. No need to monitor further CBCs. 5. Type 2 diabetes mellitus ? A1c 7.2% on admit. Not on any home medications. Unclear if patient has previously been diagnosed with diabetes, no previous A1c's in records. Sliding- scale insulin while inpatient. Recommend outpatient follow-up with PCP and to determine possibly starting oral diabetes agents as needed. Chronic medical conditions: ? History of CAD s/p stenting, carotid stenosis s/p stenting, hypertension, hyperlipidemia: Continue home aspirin, Plavix, statin, atenolol, losartan, hydrochlorothiazide. ? Hypothyroidism: Continue home Synthroid. ? GERD: Continue home PPI. ? Overactive bladder: Continue home oxybutynin. ? Neuropathy: Continue gabapentin. DVT prophylaxis: Lovenox CODE STATUS: Full code, verified Expected disposition: SNF, medically ready on 05/05, awaiting placement Total clinical time spent by myself addressing the patient's medical issues, reviewing all the data, and collaborating with patient's care team: 35 minutes. Charges/Coding Visit Charges Inpatient E&M: 09410 Subs Hosp L2
[2023-05-05] MEDS: Acetaminophen 500 MG Tablet 1000 MG PO ×2 (15:27→21:34)
[2023-05-05 15:37] VITALS: BP 130/53; PULSE 76; RESP 18; TEMP 36.9; O2SAT 95
--- NOTE | 2023-05-05 17:44 | CASEMGMT ---
Social Work Patient is requesting SNF placement. SW introduced self and role to patient. Pt requests SNF and prefers [facility] choice and [facility]. Pt also given a SNF list if needed but denies needing a list. SW informed patient that her insurance would need a precert prior to going to SNF. Pt reports desire to be at SNF tomorrow. SW explained that precert would not be started until Sunday and can take a few days. Pt indicates she would contact my flue gas analyst if my insurance takes too long. Pt reports the plan was for her to remain in the home and her son was going to help but her son suddenly in January. Pt reports no one else can help her at this time and she has to get to a SNF [facility]. SW provided support. SW referred patient to [facility] for review. Unique Norton DENTAL INSTRUMENT MAKER, EQUIPMENT MAINTENANCE SUPERINTENDENT
[2023-05-05 21:30] VITALS: BP 125/47; PULSE 76; RESP 18; TEMP 36.7; O2SAT 97
[2023-05-05] MEDS: MELATONIN 3 MG TABLET PO (21:32)
[2023-05-05] MEDS: Atorvastatin Calcium 80 MG Tablet PO (21:33)
[2023-05-05 21:39] VITALS: O2SAT 97
[2023-05-06 03:30] VITALS: BP 130/49; PULSE 70; RESP 18; TEMP 36.5; O2SAT 96
[2023-05-06] MEDS: Methocarbamol 500 MG Tablet PO ×3 (05:56→21:08)
[2023-05-06] MEDS: Psyllium 1 PACKET PO ×3 (05:56→21:07)
[2023-05-06] MEDS: Levothyroxine 137 MCG Tablet PO (05:56)
[2023-05-06] MEDS: Acetaminophen 500 MG Tablet 1000 MG PO ×3 (05:56→21:08)
[2023-05-06 10:00] VITALS: BP 138/48; PULSE 70; RESP 19; TEMP 36.4; O2SAT 100
[2023-05-06] MEDS: Clopidogrel Bisulfate 75 MG Tablet PO (10:09)
[2023-05-06] MEDS: Atenolol 100 MG Tablet PO ×2 (10:09→21:10)
[2023-05-06] MEDS: Pantoprazole Sodium 20 MG Tablet PO (10:09)
[2023-05-06] MEDS: Gabapentin 600 MG Tablet PO ×2 (10:09→21:07)
[2023-05-06] MEDS: Senna/Docusate Sodium 1 Tablet 2 TABLET PO ×2 (10:09→21:09)
[2023-05-06] MEDS: Tolterodine Tartrate 4 MG CAP.SA PO (10:10)
[2023-05-06] MEDS: Enoxaparin 40 MG/0.4 ML Syringe SC (10:10)
[2023-05-06] MEDS: hydroCHLOROthiazide 12.5mg 12.5 MG PO (10:10)
[2023-05-06] MEDS: Aspirin 325 MG Tablet PO (10:11)
[2023-05-06] MEDS: oxyCODONE 5 MG Tablet PO ×2 (10:17→21:07)
--- NOTE | 2023-05-06 13:12 | PN.HOSP_ITS ---
Reason for Visit Reason for Visit: Diagnoses Essential (primary) hypertension (05/04/23) Occlusion and stenosis of left carotid artery (05/04/23) Difficulty in walking, not elsewhere classified (05/04/23) Presence of coronary angioplasty implant and graft (05/04/23) Subjective Subjective No acute events overnight. Patient seen at bedside this morning. Patient states she had just worked with physical therapy for about half an hour and felt tired and had mild to moderate left hip discomfort but otherwise denied any other pain or discomfort. States she felt weak but was encouraged by the amount of work she was able to do with therapy. States she has significantly more pain with movement and walking pain at rest, states that pain medication has been very effective for her. No other acute concerns at this time. Objective Data Objective Data Vital Signs: Vital Signs Temp Pulse Resp BP Pulse Ox O2 Del Method 97.6 F L 70 19 H 138/48 H 100 Room Air 05/06/23 10:00 05/06/23 10:00 05/06/23 10:00 05/06/23 10:00 05/06/23 10:00 05/06/23 10:00 Oxygen Delivery Method Room Air Weight: 102.058 kg Body Mass Index (BMI) 34.7 Intake & Output: Intake and Output for Last 24 Hours 05/04/23 05/05/23 05/06/23 23:59 23:59 23:59 Intake Total 2475 / 2835 480 / 480 Output Total 1450 / 2050 1250 / 1250 Balance 1025 / 785 -770 / -770 Lab / Micro Data 05/05/23 06:33 05/05/23 06:33 Physical Exam Const alert, oriented x3 and no apparent distress Constitutional Narrative: Pleasant elderly female, obese, laying comfortably in bed, conversing normally, no acute distress. General Appearance: cooperative and comfortable HEENT normocephalic, head/scalp atraumatic, hearing grossly normal bilaterally, nasal mucous membranes and turbinates normal and moist oral mucous membranes Eyes PERRL, EOMs intact bilaterally and conjunctivae normal Neck full ROM, no lymphadenopathy and supple Lymph Lymphatic: no lymphadenopathy noted Chest inspection of chest normal Resp normal respiratory effort, normal air movement, no use of accessory muscles and clear to auscultation bilaterally Cardio regular rate, regular rhythm, no murmurs and peripheral pulses 2+ throughout GI normal to inspection, nondistended, normoactive bowel sounds, soft to palpation, non-tender and non-distended Back/Spine normal ROM Extremity Extremity Narrative: No gross abnormalities on visual exam. Skin no rashes or lesions noted Neuro no focal motor deficits and no sensory deficits noted Speech: speech normal Psych mental status grossly normal Assessment & Plan Assessment/Plan (1) Difficulty in walking: (2) Unable to ambulate: PLAN: Plan Patient is a 78-year-old female who presented to [facility] ED on 05/04/2023 with worsening weakness after recent left hip replacement. 1. Acute debility secondary to recent left hip replacement complicated by left hip dislocation ? Had left hip replacement done at [facility] on 04/26. Unfortunately had subsequent dislocation with reduction in OR at 04/28 at [facility]. Home health PT/OT did not feel she was safe at home. PT/OT/case management following. Planning for SNF on discharge, medically ready for discharge on 05/05, awaiting placement. Scheduled Tylenol plus oxycodone 5 mg every 4 hours as needed for pain control. 2. Constipation, improving ? TSH mildly elevated at 6.1 on admit. Continue home Synthroid as noted below. Continue bowel regimen. 3. Mild VAHE, improving ? Creatinine 1.16 on admit, improved to creatinine 0.99 on hospital day 2 after IV fluids. Unclear baseline, last creatinine was 0.83 back in 2019. Suspect patient is close to her baseline. Adequate urine output. Monitor daily BMP and urine output. 4. Anemia, unclear chronicity ? Hemoglobin 8.7 on admit, last known hemoglobin 11.9. Unclear what hemoglobin level was postoperatively. Reports no recent bleeding. Iron studies consistent with mild iron deficiency anemia. Reticulocyte count elevated at 4.8%. Repeat hemoglobin 8.4 on hospital day 2. Will start p.o. iron supplement. No need to monitor further CBCs. 5. Type 2 diabetes mellitus ? A1c 7.2% on admit. Not on any home medications. Unclear if patient has previously been diagnosed with diabetes, no previous A1c's in records. Sliding- scale insulin while inpatient. Recommend outpatient follow-up with PCP and to determine possibly starting oral diabetes agents as needed. Chronic medical conditions: ? History of CAD s/p stenting, carotid stenosis s/p stenting, hypertension, hyperlipidemia: Continue home aspirin, Plavix, statin, atenolol, losartan, hydrochlorothiazide. ? Hypothyroidism: Continue home Synthroid. ? GERD: Continue home PPI. ? Overactive bladder: Continue home oxybutynin. ? Neuropathy: Continue gabapentin. DVT prophylaxis: Lovenox CODE STATUS: Full code, verified Expected disposition: SNF, medically ready on 05/05, awaiting placement Total clinical time spent by myself addressing the patient's medical issues, reviewing all the data, and collaborating with patient's care team: 25 minutes. Charges/Coding Visit Charges Inpatient E&M: 63456 Subs Hosp L1
[2023-05-06 15:50] VITALS: BP 133/53; PULSE 75; RESP 19; TEMP 36.8; O2SAT 98
[2023-05-06] MEDS: MELATONIN 3 MG TABLET PO (21:07)
[2023-05-06] MEDS: Atorvastatin Calcium 80 MG Tablet PO (21:09)
[2023-05-06 21:25] VITALS: BP 158/58; PULSE 73; RESP 16; TEMP 36.6; O2SAT 93
[2023-05-07] MEDS: Levothyroxine 137 MCG Tablet PO (05:42)
[2023-05-07] MEDS: Acetaminophen 500 MG Tablet 1000 MG PO ×2 (05:43→13:59)
[2023-05-07] MEDS: Methocarbamol 500 MG Tablet PO ×2 (05:45→13:59)
[2023-05-07] MEDS: Psyllium 1 PACKET PO ×2 (05:45→14:00)
[2023-05-07 05:50] VITALS: BP 154/72; PULSE 69; RESP 16; TEMP 36.4; O2SAT 95
[2023-05-07] MEDS: Polyethylene Glycol 3350 17 GM PACKET PO (08:02)
[2023-05-07] MEDS: Aspirin 325 MG Tablet PO (08:03)
[2023-05-07 08:56] LABS: Vitamin B12 232 pg/mL (211-911)
[2023-05-07 09:00] VITALS: BP 118/55; PULSE 69; RESP 18; TEMP 36.3; O2SAT 98
[2023-05-07] MEDS: Tolterodine Tartrate 4 MG CAP.SA PO (11:04)
[2023-05-07] MEDS: hydroCHLOROthiazide 12.5mg 12.5 MG PO (11:04)
[2023-05-07] MEDS: Enoxaparin 40 MG/0.4 ML Syringe SC (11:04)
[2023-05-07] MEDS: Pantoprazole Sodium 20 MG Tablet PO (11:05)
[2023-05-07] MEDS: Senna/Docusate Sodium 1 Tablet 2 TABLET PO (11:05)
[2023-05-07] MEDS: Atenolol 100 MG Tablet PO (11:05)
[2023-05-07] MEDS: Clopidogrel Bisulfate 75 MG Tablet PO (11:05)
[2023-05-07] MEDS: Gabapentin 600 MG Tablet PO (11:08)
--- NOTE | 2023-05-07 11:28 | CASEMGMT ---
Social Work [facility] accepted pt, SW sent updates earlier and asked them to start precert. SW spoke w/pt, let her know [facility] accepted her and updates sent earlier by this SW in [facility], asked them to start precert. Pt states understanding and agreeable. Pt then went on to talk about losing her son of 49 in January, her 's failing memory and her difficulty with her hip. She is having difficulty and states she knows she is struggling physically and mentally. SW offered support. SW offered resources, she is receptive. SW gave pt information on counseling agencies in the area as well as [facility] for bereavement counseling. SW will continue to follow for discharge to [facility] when precert attained. MICHELL Hall
--- NOTE | 2023-05-07 13:21 | PCM.PN.HOSP ---
Reason for Visit Reason for Visit: Diagnoses Essential (primary) hypertension (05/04/23) Occlusion and stenosis of left carotid artery (05/04/23) Difficulty in walking, not elsewhere classified (05/04/23) Presence of coronary angioplasty implant and graft (05/04/23) Subjective Subjective No acute events overnight. Patient seen at bedside this morning. Sitting up comfortably in bed, no acute distress. Patient was tearful during our encounter this morning, states that she has had a lot of stressors at home recently and her current level debility has also been frustrating to her. She also reports feeling constipated, states she has not had a significant bowel movement for over a week. She has been moving some stool, has been having small pellets of stool intermittently during his hospitalization. Patient otherwise denies any acute pain or discomfort. No other acute concerns this time. Objective Data Objective Data Vital Signs: Vital Signs Temp Pulse Resp BP Pulse Ox O2 Del Method 97.3 F L 69 18 118/55 L 98 Room Air 05/07/23 09:00 05/07/23 09:00 05/07/23 09:00 05/07/23 09:00 05/07/23 09:00 05/07/23 09:00 Oxygen Delivery Method Room Air Weight: 102.058 kg Body Mass Index (BMI) 34.7 Intake & Output: Intake and Output for Last 24 Hours 05/05/23 05/06/23 05/07/23 23:59 23:59 23:59 Intake Total 2475 / 2835 1180 / 1180 Output Total 1450 / 2050 1850 / 1850 350 / 350 Balance 1025 / 785 -670 / -670 -350 / -350 Lab / Micro Data 05/05/23 06:33 05/05/23 06:33 Labs: Laboratory Results - last 24 hr 05/05/23 06:33: Vitamin B12 232 Physical Exam Const alert, oriented x3 and no apparent distress Constitutional Narrative: Pleasant elderly female, obese, laying comfortably in bed, conversing normally, no acute distress. General Appearance: cooperative and comfortable HEENT normocephalic, head/scalp atraumatic, hearing grossly normal bilaterally, nasal mucous membranes and turbinates normal and moist oral mucous membranes Eyes PERRL, EOMs intact bilaterally and conjunctivae normal Neck full ROM, no lymphadenopathy and supple Lymph Lymphatic: no lymphadenopathy noted Chest inspection of chest normal Resp normal respiratory effort, normal air movement, no use of accessory muscles and clear to auscultation bilaterally Cardio regular rate, regular rhythm, no murmurs and peripheral pulses 2+ throughout GI normal to inspection, nondistended, normoactive bowel sounds, soft to palpation, non-tender and non-distended Back/Spine normal ROM Extremity Extremity Narrative: No gross abnormalities on visual exam. Skin no rashes or lesions noted Neuro no focal motor deficits and no sensory deficits noted Speech: speech normal Psych mental status grossly normal Assessment & Plan Assessment/Plan (1) Difficulty in walking: (2) Unable to ambulate: PLAN: Plan Patient is a 78-year-old female who presented to [facility] ED on 05/04/2023 with worsening weakness after recent left hip replacement. 1. Acute debility secondary to recent left hip replacement complicated by left hip dislocation ? Had left hip replacement done at [facility] on 04/26. Unfortunately had subsequent dislocation with reduction in OR at 04/28 at [facility]. Home health PT/OT did not feel she was safe at home. PT/OT/case management following. Planning for SNF on discharge, medically ready for discharge on 05/05, awaiting placement. Scheduled Tylenol plus oxycodone 5 mg every 4 hours as needed for pain control. 2. Constipation ? Patient reports small hard bowel movements over the last week or so. Likely multifactorial due to recent procedure, immobility and mildly elevated TSH. Continue home Synthroid as noted below. Continue bowel regimen, added suppositories as needed and can give intermittent doses of lactulose as needed to help with stimulating bowel movements. 3. Mild VAHE, improving ? Creatinine 1.16 on admit, improved to creatinine 0.99 on hospital day 2 after IV fluids. Unclear baseline, last creatinine was 0.83 back in 2019. Suspect patient is close to her baseline. Adequate urine output. Monitor daily BMP and urine output. 4. Anemia, unclear chronicity ? Hemoglobin 8.7 on admit, last known hemoglobin 11.9. Unclear what hemoglobin level was postoperatively. Reports no recent bleeding. Iron studies consistent with mild iron deficiency anemia. Reticulocyte count elevated at 4.8%. Repeat hemoglobin 8.4 on hospital day 2. Will start p.o. iron supplement. No need to monitor further CBCs. 5. Type 2 diabetes mellitus ? A1c 7.2% on admit. Not on any home medications. Unclear if patient has previously been diagnosed with diabetes, no previous A1c's in records. Sliding-scale insulin while inpatient. Recommend outpatient follow-up with PCP and to determine possibly starting oral diabetes agents as needed. Chronic medical conditions: ? History of CAD s/p stenting, carotid stenosis s/p stenting, hypertension, hyperlipidemia: Continue home aspirin, Plavix, statin, atenolol, losartan, hydrochlorothiazide. ? Hypothyroidism: TSH 6.1 on admit. Continue home Synthroid. ? GERD: Continue home PPI. ? Overactive bladder: Continue home oxybutynin. ? Neuropathy: Continue gabapentin. DVT prophylaxis: Lovenox CODE STATUS: Full code, verified Expected disposition: SNF, medically ready on 05/05, awaiting placement Total clinical time spent by myself addressing the patient's medical issues, reviewing all the data, and collaborating with patient's care team: 25 minutes. Charges/Coding Visit Charges Inpatient E&M: 74932 [facility] Hosp L1
[2023-05-07 13:39] LABS: Pathologist Review Reviewed
[2023-05-07] MEDS: Bisacodyl 10 MG Suppository RC (14:00)
--- NOTE | 2023-05-07 14:53 | CASEMGMT ---
Discharge Planning Auth has been obtained by [facility]. SW updated. Moon Santana, Discharge Planning Asst.
[2023-05-07] MEDS: Lactulose 20 GM/30 ML UDC 10 GM PO (15:13)
[2023-05-07 15:17] VITALS: BP 150/74; PULSE 73; RESP 18; TEMP 36.9; O2SAT 98
--- NOTE | 2023-05-07 15:34 | PCM.DC ---
Discharge Instructions Diet Discharge Diet: No restrictions Activity Discharge Activity: No Restrictions Weight Bearing Status: Full weight bearing Follow Up Care Test Results: Test results from this visit will be discussed in further detail at your follow-up appointment, if applicable. Discharge Plan Admission Admit Date/Time: 05/04/23 17:45 Primary Reason for Your Visit: weakness and difficulty with ambulation post hip replacement Attending Provider: Billy Arias Primary Care Provider: Dilan Valle Consulting Providers: Krystle Serrano Discharge Orders/Prescriptions Prescriptions: New polyethylene glycol 3350 17 gram Powder In Packet 17 g PO DAILY Qty: 0 0RF acetaminophen 500 mg Tablet 1,000 mg PO Q8 Qty: 0 0RF bisacodyl 10 mg Suppository 10 mg [place] DAILY PRN (Reason: Constipation) Qty: 0 0RF ferrous sulfate [FeroSul] 325 mg (65 mg iron) Tablet 325 mg PO DAILY@1200 Qty: 0 0RF oxycodone 5 mg Tablet 5 mg PO Q4H PRN PRN (Reason: Pain Score 6-10) Qty: 0 0RF sennosides-docusate sodium [Stool Softener-Stimulant Laxat] 8.6-50 mg Tablet 2 tab PO BID Qty: 0 0RF Continued levothyroxine [Synthroid] 137 mcg tablet 137 mcg PO DAILY gabapentin 300 mg capsule 600 mg PO BID aspirin 81 mg tablet,chewable 325 mg PO DAILY@0800 atorvastatin 80 mg tablet 80 mg PO QHS Qty: 90 3RF clopidogrel 75 mg tablet 75 mg PO DAILY Qty: 90 3RF hydrochlorothiazide 12.5 mg capsule 12.5 mg PO DAILY Qty: 90 3RF calcium carbonate [Tums] 200 mg calcium (500 mg) tablet,chewable 200 mg PO BID L.acidophilus-Bifido.longum [Probiotic Pearls] 15 mg (1 billion cell) capsule,delayed release(DR/EC) 1 cap PO DAILY docusate sodium 100 mg capsule 100 mg PO DAILY methocarbamol 500 mg tablet 500 mg PO TID oxybutynin chloride 15 mg tablet extended release 24hr 15 mg PO DAILY pantoprazole 20 mg tablet,delayed release (DR/EC) 20 mg PO DAILY nitroglycerin 0.4 mg tablet, sublingual 0.4 mg SL Q5-15M PRN (Reason: Cardiac/Chest Pain) Qty: 25 3RF atenolol 100 mg tablet See Rx Instructions .ROUTE .COMPLEX Qty: 180 3RF Dose Instruction: TAKE 1 TABLET BY MOUTH TWICE A DAY Rx Instructions: TAKE 1 TABLET BY MOUTH TWICE A DAY losartan 100 mg tablet 100 mg PO DAILY Qty: 90 3RF Referrals / Follow Up: Dilan Valle MD [Primary Care Provider] - Disposition Disposition (needs filled in before D/C Order can be placed): [facility] Facility
--- NOTE | 2023-05-07 15:38 | PCM.TXEXTCAR ---
Diet Diet Order/Speech Therapy: 05/04/23 18:46 Diet: Cardiac - Heart Healthy Food consistency:: Regular Liquid Consistency:: Regular/Thin Routine Orders/Code Status Suppository Type: Dulcolax 10mg Suppository Frequency: Daily PRN Code Status: Full Code Wound(s) left hip: Wound Type: Surgical Incision Therapies Weight Bearing: Full weight bearing Extremity Affected:: Bilateral Lower Physical Therapy: Eval and Treat Occupational Therapy: Eval and Treat Problem/Diagnosis (1) Difficulty in walking: Status: Acute Code(s): R26.2 - Difficulty in walking, not elsewhere classified (2) Unable to ambulate: Status: Acute Code(s): R26.2 - Difficulty in walking, not elsewhere classified Plan Patient is a 78-year-old female who presented to [facility] ED on 05/04/2023 with worsening weakness after recent left hip replacement. Short hospital course as noted below. [facility]. 1. Acute debility secondary to recent left hip replacement complicated by left hip dislocation ? Had left hip replacement done at [facility] on 04/26. Unfortunately had subsequent dislocation with reduction in OR at 04/28 at [facility]. Home health PT/OT did not feel she was safe at home. PT/OT/case management followed. Medically ready for discharge to SNF on 05/05, discharged in stable condition on 05/07. Scheduled Tylenol plus oxycodone 5 mg every 4 hours as needed for pain control. 2. Constipation ? Patient reported small hard bowel movements since her hip procedure. Likely multifactorial due to recent procedure, immobility and mildly elevated TSH. Continue home Synthroid as noted below. Continue bowel regimen with scheduled MiraLAX, senna and Dulcolax suppositories as needed. 3. Mild VAHE, resolved ? Creatinine 1.16 on admit, improved to creatinine 0.99 on hospital day 2 after IV fluids. Unclear baseline, last creatinine was 0.83 back in 2019. Suspect patient is close to her baseline. Adequate urine output. 4. Anemia, unclear chronicity ? Hemoglobin 8.7 on admit, last known hemoglobin 11.9. Unclear what hemoglobin level was postoperatively. Reports no recent bleeding. Iron studies consistent with mild iron deficiency anemia. Reticulocyte count elevated at 4.8%. Repeat hemoglobin 8.4 on hospital day 2. Started p.o. iron supplement on discharge. 5. Type 2 diabetes mellitus ? A1c 7.2% on admit. Not on any home medications. Unclear if patient has previously been diagnosed with diabetes, no previous A1c's in records. Sliding-scale insulin while inpatient. Recommend outpatient follow-up with PCP to determine possibly starting oral diabetes agents as needed. Chronic medical conditions: ? History of CAD s/p stenting, carotid stenosis s/p stenting, hypertension, hyperlipidemia: Continue home aspirin, Plavix, statin, atenolol, losartan, hydrochlorothiazide. ? Hypothyroidism: TSH 6.1 on admit. Continue home Synthroid. ? GERD: Continue home PPI. ? Overactive bladder: Continue home oxybutynin. ? Neuropathy: Continue gabapentin. Total clinical time spent by myself addressing the patient's discharge needs: 25 minutes. Allergies/Procedures Done in Hospital Allergies bee venom protein (honey bee) Allergy (Verified 05/04/23 14:48) Anaphylaxis codeine Adverse Reaction (Verified 05/04/23 14:48) Unknown icosapent ethyl [From Vascepa] Adverse Reaction (Verified 05/04/23 14:48) Joint swelling and pain morphine Adverse Reaction (Verified 05/04/23 14:48) Unknown oxycodone [From Percodan] Adverse Reaction (Verified 05/04/23 14:48) Unknown Procedures: None Type of Care/Length of Stay Estimated LOS: Convalescent Care Less Than 30 days Type of Care Needed: Skilled Rehab Potential: Fair Prognosis: Fair Additional Orders/Day of Discharge Additional Orders: Have counseling services follow up w/pt at SNF Day of Discharge: 05/07/23 Discharge Plan Admission Admit Date/Time: 05/04/23 17:45 Primary Reason for Your Visit: weakness and difficulty with ambulation post hip replacement Attending Provider: Billy Arias Primary Care Provider: Dilan Valle Consulting Providers: Krystle Serrano Discharge Orders/Prescriptions Prescriptions: New polyethylene glycol 3350 17 gram Powder In Packet 17 g PO DAILY Qty: 0 0RF acetaminophen 500 mg Tablet 1,000 mg PO Q8 Qty: 0 0RF bisacodyl 10 mg Suppository 10 mg [place] DAILY PRN (Reason: Constipation) Qty: 0 0RF ferrous sulfate [FeroSul] 325 mg (65 mg iron) Tablet 325 mg PO DAILY@1200 Qty: 0 0RF oxycodone 5 mg Tablet 5 mg PO Q4H PRN PRN (Reason: Pain Score 6-10) Qty: 0 0RF sennosides-docusate sodium [Stool Softener-Stimulant Laxat] 8.6-50 mg Tablet 2 tab PO BID Qty: 0 0RF Continued levothyroxine [Synthroid] 137 mcg tablet 137 mcg PO DAILY gabapentin 300 mg capsule 600 mg PO BID aspirin 81 mg tablet,chewable 325 mg PO DAILY@0800 atorvastatin 80 mg tablet 80 mg PO QHS Qty: 90 3RF clopidogrel 75 mg tablet 75 mg PO DAILY Qty: 90 3RF hydrochlorothiazide 12.5 mg capsule 12.5 mg PO DAILY Qty: 90 3RF calcium carbonate [Tums] 200 mg calcium (500 mg) tablet,chewable 200 mg PO BID L.acidophilus-Bifido.longum [Probiotic Pearls] 15 mg (1 billion cell) capsule,delayed release(DR/EC) 1 cap PO DAILY docusate sodium 100 mg capsule 100 mg PO DAILY methocarbamol 500 mg tablet 500 mg PO TID oxybutynin chloride 15 mg tablet extended release 24hr 15 mg PO DAILY pantoprazole 20 mg tablet,delayed release (DR/EC) 20 mg PO DAILY nitroglycerin 0.4 mg tablet, sublingual 0.4 mg SL Q5-15M PRN (Reason: Cardiac/Chest Pain) Qty: 25 3RF atenolol 100 mg tablet See Rx Instructions .ROUTE .COMPLEX Qty: 180 3RF Dose Instruction: TAKE 1 TABLET BY MOUTH TWICE A DAY Rx Instructions: TAKE 1 TABLET BY MOUTH TWICE A DAY losartan 100 mg tablet 100 mg PO DAILY Qty: 90 3RF Referrals / Follow Up: Dilan Valle MD [Primary Care Provider] - Disposition Disposition (needs filled in before D/C Order can be placed): [facility]
--- NOTE | 2023-05-07 15:43 | PCM.DC.SUM ---
Providers Date of Admission: 05/04/23 Date of Discharge: 05/07/23 Primary Care Physician: Dr. Dilan Valle MD Reason For Visit: DIFFICULTY WITH MOBILITY Diagnosis Discharge Diagnosis (1) Difficulty in walking: Status: Acute Code(s): R26.2 - Difficulty in walking, not elsewhere classified (2) Unable to ambulate: Status: Acute Code(s): R26.2 - Difficulty in walking, not elsewhere classified Medications at Discharge Home Medications levothyroxine 137 mcg tablet (Synthroid) 137 mcg PO DAILY thyroid 12/24/17 gabapentin 300 mg capsule 600 mg PO BID nerve damage 10/28/19 aspirin 81 mg chewable tablet 325 mg PO DAILY@0800 06/16/21 atorvastatin 80 mg tablet 80 mg PO QHS #90 tabs 06/16/21 clopidogrel 75 mg tablet 75 mg PO DAILY #90 tabs 06/16/21 hydrochlorothiazide 12.5 mg capsule 12.5 mg PO DAILY #90 caps 06/16/21 nitroglycerin 0.4 mg sublingual tablet 0.4 mg sublingual Q5-15M PRN Cardiac/Chest Pain #25 tabs 12/12/21 atenolol 100 mg tablet See Rx Instructions .Route .COMPLEX #180 tabs 12/23/21 calcium carbonate 200 mg calcium (500 mg) chewable tablet (Tums) 200 mg PO BID 06/06/22 losartan 100 mg tablet 100 mg PO DAILY #90 tabs 02/21/23 L.acidophilus-bif.longum 15 mg (1 billion cell)capsule,delayed release (Probiotic Pearls) 1 cap PO DAILY probiotic 05/04/23 docusate sodium 100 mg capsule 100 mg PO DAILY stool softener 05/04/23 methocarbamol 500 mg tablet 500 mg PO TID muscle pain 05/04/23 oxybutynin chloride 15 mg tablet,extended release 24 hr 15 mg PO DAILY bladder 05/04/23 pantoprazole 20 mg tablet,delayed release 20 mg PO DAILY 05/04/23 acetaminophen 500 mg tablet 1,000 mg (2 x 500 mg) PO Q8 #0 tabs 05/07/23 bisacodyl 10 mg rectal suppository 10 mg [place] DAILY PRN Constipation #0 ea 05/07/23 ferrous sulfate 325 mg (65 mg iron) tablet (FeroSul) 325 mg PO DAILY@1200 #0 tabs 05/07/23 oxycodone 5 mg tablet 5 mg PO Q4H PRN PRN Pain Score 6-10 #0 tabs 05/07/23 polyethylene glycol 3350 17 gram oral powder packet 17 g PO DAILY #0 ea 05/07/23 sennosides 8.6 mg-docusate sodium 50 mg tablet (Stool Softener-Stimulant Laxative) 2 tab PO BID #0 tabs 05/07/23 Hospital Course Operations None Procedures None Summary of Care Provided Minutes Spent on Discharge: 25 Hospital Course: Patient is a 78-year-old female who presented to [facility] ED on 05/04/2023 with worsening weakness after recent left hip replacement. Short hospital course as noted below. Discharged to [facility] facility in stable condition on 05/07. 1. Acute debility secondary to recent left hip replacement complicated by left hip dislocation ? Had left hip replacement done at [facility] on 04/26. Unfortunately had subsequent dislocation with reduction in OR at 04/28 at [facility]. Home health PT/OT did not feel she was safe at home. PT/OT/case management followed. Medically ready for discharge to SNF on 05/05, discharged in stable condition on 05/07. Scheduled Tylenol plus oxycodone 5 mg every 4 hours as needed for pain control. 2. Constipation ? Patient reported small hard bowel movements since her hip procedure. Likely multifactorial due to recent procedure, immobility and mildly elevated TSH. Continue home Synthroid as noted below. Continue bowel regimen with scheduled MiraLAX, senna and Dulcolax suppositories as needed. 3. Mild VAHE, resolved ? Creatinine 1.16 on admit, improved to creatinine 0.99 on hospital day 2 after IV fluids. Unclear baseline, last creatinine was 0.83 back in 2019. Suspect patient is close to her baseline. Adequate urine output. 4. Anemia, unclear chronicity ? Hemoglobin 8.7 on admit, last known hemoglobin 11.9. Unclear what hemoglobin level was postoperatively. Reports no recent bleeding. Iron studies consistent with mild iron deficiency anemia. Reticulocyte count elevated at 4.8%. Repeat hemoglobin 8.4 on hospital day 2. Started p.o. iron supplement on discharge. 5. Type 2 diabetes mellitus ? A1c 7.2% on admit. Not on any home medications. Unclear if patient has previously been diagnosed with diabetes, no previous A1c's in records. Sliding-scale insulin while inpatient. Recommend outpatient follow-up with PCP to determine possibly starting oral diabetes agents as needed. Chronic medical conditions: ? History of CAD s/p stenting, carotid stenosis s/p stenting, hypertension, hyperlipidemia: Continue home aspirin, Plavix, statin, atenolol, losartan, hydrochlorothiazide. ? Hypothyroidism: TSH 6.1 on admit. Continue home Synthroid. ? GERD: Continue home PPI. ? Overactive bladder: Continue home oxybutynin. ? Neuropathy: Continue gabapentin. Total clinical time spent by myself addressing the patient's discharge needs: 25 minutes. Physical Exam Const alert, oriented x3 and no apparent distress Constitutional Narrative: Pleasant elderly female, obese, laying comfortably in bed, conversing normally, no acute distress. General Appearance: cooperative and comfortable HEENT normocephalic, head/scalp atraumatic, hearing grossly normal bilaterally, nasal mucous membranes and turbinates normal and moist oral mucous membranes Eyes PERRL, EOMs intact bilaterally and conjunctivae normal Neck full ROM, no lymphadenopathy and supple Lymph Lymphatic: no lymphadenopathy noted Chest inspection of chest normal Resp normal respiratory effort, normal air movement, no use of accessory muscles and clear to auscultation bilaterally Cardio regular rate, regular rhythm, no murmurs and peripheral pulses 2+ throughout GI normal to inspection, nondistended, normoactive bowel sounds, soft to palpation, non-tender and non-distended Back/Spine normal ROM Extremity Extremity Narrative: No gross abnormalities on visual exam. Skin no rashes or lesions noted Neuro no focal motor deficits and no sensory deficits noted Speech: speech normal Psych mental status grossly normal Weight / BMI Weight Weight: 102.058 kg Body Mass Index (BMI) 34.7 ABG / Lab / Microbiology Data 05/05/23 06:33 05/05/23 06:33 Laboratory: Laboratory Results - last 24 hr 05/04/23 16:35: Diff Path Review Reviewed 05/05/23 06:33: Vitamin B12 232 D/C Instructions Discharge Diet: No restrictions Weight Bearing Status: Full weight bearing Meaningful Use Info Meaningful Use Diagnoses (Choose all that apply): None applicable Discharge Plan Admission Admit Date/Time: 05/04/23 17:45 Primary Reason for Your Visit: weakness and difficulty with ambulation post hip replacement Attending Provider: Billy Arias Primary Care Provider: Dilan Valle Consulting Providers: Krystle Serrano Discharge Orders/Prescriptions Prescriptions: New polyethylene glycol 3350 17 gram Powder In Packet 17 g PO DAILY Qty: 0 0RF acetaminophen 500 mg Tablet 1,000 mg PO Q8 Qty: 0 0RF bisacodyl 10 mg Suppository 10 mg [place] DAILY PRN (Reason: Constipation) Qty: 0 0RF ferrous sulfate [FeroSul] 325 mg (65 mg iron) Tablet 325 mg PO DAILY@1200 Qty: 0 0RF oxycodone 5 mg Tablet 5 mg PO Q4H PRN PRN (Reason: Pain Score 6-10) Qty: 0 0RF sennosides-docusate sodium [Stool Softener-Stimulant Laxat] 8.6-50 mg Tablet 2 tab PO BID Qty: 0 0RF Continued levothyroxine [Synthroid] 137 mcg tablet 137 mcg PO DAILY gabapentin 300 mg capsule 600 mg PO BID aspirin 81 mg tablet,chewable 325 mg PO DAILY@0800 atorvastatin 80 mg tablet 80 mg PO QHS Qty: 90 3RF clopidogrel 75 mg tablet 75 mg PO DAILY Qty: 90 3RF hydrochlorothiazide 12.5 mg capsule 12.5 mg PO DAILY Qty: 90 3RF calcium carbonate [Tums] 200 mg calcium (500 mg) tablet,chewable 200 mg PO BID L.acidophilus-Bifido.longum [Probiotic Pearls] 15 mg (1 billion cell) capsule,delayed release(DR/EC) 1 cap PO DAILY docusate sodium 100 mg capsule 100 mg PO DAILY methocarbamol 500 mg tablet 500 mg PO TID oxybutynin chloride 15 mg tablet extended release 24hr 15 mg PO DAILY pantoprazole 20 mg tablet,delayed release (DR/EC) 20 mg PO DAILY nitroglycerin 0.4 mg tablet, sublingual 0.4 mg SL Q5-15M PRN (Reason: Cardiac/Chest Pain) Qty: 25 3RF atenolol 100 mg tablet See Rx Instructions .ROUTE .COMPLEX Qty: 180 3RF Dose Instruction: TAKE 1 TABLET BY MOUTH TWICE A DAY Rx Instructions: TAKE 1 TABLET BY MOUTH TWICE A DAY losartan 100 mg tablet 100 mg PO DAILY Qty: 90 3RF Referrals / Follow Up: Dilan Valle MD [Primary Care Provider] - Disposition Disposition (needs filled in before D/C Order can be placed): Care Home Facility Charges/Coding Visit Charges Inpatient E&M: 35148 Disch Hosp
--- NOTE | 2023-05-07 16:23 | PHA.DC.MR.R ---
Pharmacy [place] [facility] Reconciliation [facility] Service has performed discharge medication reconciliation for this patient. The patient's discharge medication list was reviewed for discrepancies and discrepancies were resolved. Medications at Discharge Home Medications levothyroxine 137 mcg tablet (Synthroid) 137 mcg PO DAILY thyroid 12/24/17 gabapentin 300 mg capsule 600 mg PO BID nerve damage 10/28/19 aspirin 81 mg chewable tablet 325 mg PO DAILY@0800 06/16/21 atorvastatin 80 mg tablet 80 mg PO QHS #90 tabs 06/16/21 clopidogrel 75 mg tablet 75 mg PO DAILY #90 tabs 06/16/21 hydrochlorothiazide 12.5 mg capsule 12.5 mg PO DAILY #90 caps 06/16/21 nitroglycerin 0.4 mg sublingual tablet 0.4 mg sublingual Q5-15M PRN Cardiac/Chest Pain #25 tabs 12/12/21 atenolol 100 mg tablet See Rx Instructions .Route .COMPLEX #180 tabs 12/23/21 calcium carbonate 200 mg calcium (500 mg) chewable tablet (Tums) 200 mg PO BID 06/06/22 losartan 100 mg tablet 100 mg PO DAILY #90 tabs 02/21/23 L.acidophilus-bif.longum 15 mg (1 billion cell)capsule,delayed release (Probiotic Pearls) 1 cap PO DAILY probiotic 05/04/23 docusate sodium 100 mg capsule 100 mg PO DAILY stool softener 05/04/23 methocarbamol 500 mg tablet 500 mg PO TID muscle pain 05/04/23 oxybutynin chloride 15 mg tablet,extended release 24 hr 15 mg PO DAILY bladder 05/04/23 pantoprazole 20 mg tablet,delayed release 20 mg PO DAILY 05/04/23 acetaminophen 500 mg tablet 1,000 mg (2 x 500 mg) PO Q8 #0 tabs 05/07/23 bisacodyl 10 mg rectal suppository 10 mg MD DAILY PRN Constipation #0 ea 05/07/23 ferrous sulfate 325 mg (65 mg iron) tablet (FeroSul) 325 mg PO DAILY@1200 #0 tabs 05/07/23 oxycodone 5 mg tablet 5 mg PO Q4H PRN PRN Pain Score 6-10 #0 tabs 05/07/23 polyethylene glycol 3350 17 gram oral powder packet 17 g PO DAILY #0 ea 05/07/23 sennosides 8.6 mg-docusate sodium 50 mg tablet (Stool Softener-Stimulant Laxative) 2 tab PO BID #0 tabs 05/07/23
--- NOTE | 2023-05-07 16:57 | CASEMGMT ---
Discharge Planning Discharge orders, signed med list, and transport time sent via [facility] to [facility]. Physicians will transport patient by cot at 6p. Nursing, SW, patient, and her udated. Moon Santana, Discharge Planning Asst.
[2023-05-07 17:09] VITALS: BP 150/74; PULSE 73; RESP 18; TEMP 36.9; O2SAT 98
== END 2023-05-07 19:25 | disposition skilled nursing facility (03) ==
LOC: ED 17:00 → MS3 17:47
PROVIDERS: Admitting Provider Internal Medicine; Emergency Provider Emergency Medicine; PCP Family Medicine; Visit Provider Hospitalist
DX: R26.2 Difficulty in walking, not elsewhere classified (principal); N17.9 Acute kidney failure, unspecified; E11.40 Type 2 diabetes mellitus with diabetic neuropathy, unspecified; E11.65 Type 2 diabetes mellitus with hyperglycemia; E89.0 Postprocedural hypothyroidism; E78.5 Hyperlipidemia, unspecified; I25.10 Atherosclerotic heart disease of native coronary artery without angina pectoris; D64.9 Anemia, unspecified; Z95.5 Presence of coronary angioplasty implant and graft; I10 Essential (primary) hypertension; R53.1 Weakness; K21.9 Gastro-esophageal reflux disease without esophagitis; N32.81 Overactive bladder; Z79.899 Other long term (current) drug therapy; Z79.82 Long term (current) use of aspirin; Z79.890 Hormone replacement therapy
CPT/HCPCS: 36415; 80048; 80053; 82607; 82728; 83036; 83540; 83550; 84443; 85025; 85045; 96372; 97110; 97116; 97162; 97166; 97535; 99221; 99284; A4216; G0378

== ENCOUNTER → 2023-07-05 | Outpatient (CLI) | payer MEDICARE, SELFPAY ==
[2018-08-23 10:07] VITALS: BMI 35.6
--- NOTE | 2023-07-05 13:43 | STRESSREP ---
Stress Test Report Pharmacologic myocardial perfusion stress test. 78-year-old lady with a history of chest pain Resting EKG demonstrates sinus rhythm with a rate of 67 bpm. Resting blood pressure is 126/80 mmHg. 0.4 mg of regadenoson was infused per usual protocol followed by rapid intravenous saline flush injection. Continuous EKG monitoring was performed. The maximum heart rate was 110 bpm which was 76% of max impacted heart rate the maximum workload was 1 metabolic equivalent. At rest there were no ST or T wave changes noted to suggest ischemia and at peak infusion nonspecific ST changes were noted which did not meet the criteria for ischemia. No clinical angina is noted. The final blood pressure was 118/70 mmHg. Myocardial perfusion protocol. 13.8 mCi of technetium 99m sestamibi was injected at rest. 0.4 mg of regadenoson was infused per usual protocol. At peak infusion 42 point mCi of technetium 99m sestamibi was injected stress images were obtained stress and rest images were reconstructed and compared in the short axis vertical long and horizontal long axis. Gated images were also obtained. Perfusion SPECT analysis: Review of the stress images demonstrate normal uptake of tracer noted in all areas of the myocardium. The resting images similar demonstrated normal uptake of tracer noted in all areas of the myocardium. No areas of reversibility are noted to suggest ischemia and no previous infarct is noted. Gated SPECT analysis: The gated ejection fraction is 82%. Conclusion: Normal pharmacologic myocardial perfusion stress test. Preserved ejection fraction.
== END | disposition home or self-care (01) ==
LOC: CVS 06:25
PROVIDERS: PCP Family Medicine; Referring Provider Nurse Practitioner Gerontology; Visit Provider Nurse Practitioner Gerontology
DX: R07.9 Chest pain, unspecified (principal); I25.10 Atherosclerotic heart disease of native coronary artery without angina pectoris
CPT/HCPCS: 78452; 93017; A9500; A4216; J2785